=== PATIENT | male | born 1955 | race Caucasian/White ===

== ENCOUNTER → 2017-09-24 08:40 | Outpatient (CLI) | payer OTHER, SELFPAY ==
[2017-09-24 11:11] LABS: ALB/GLOB Ratio 0.8 RATIO (0.9-2.4); AST(SGOT) 20 U/L (15-37); Alanine Aminotransfer ALT/SGPT 27 U/L (16-61); Albumin, Serum 3.1 g/dL (3.2-5.0); Alkaline Phosphatase 89 U/L (45-117); Anion Gap 5 (5-15); BUN 12 mg/dL (7-18); BUN/Creat Ratio 10.5 RATIO (10-20); Calcium,Total 8.5 mg/dL (8.5-10.1); Chloride 108 mmol/L (98-107); Cholesterol 100 mg/dL (200); Creatinine, Serum 1.14 mg/dL (0.70-1.30); EST Glomerular Filtration Rate 69 mL/min (>60); Est Glom Filt Rate - Afr Amer 83 mL/min (>60); Globulin 3.9 g/dL (2.2-4.2); Glucose 116 mg/dL (74-106); High Density Lipoprotein 31 mg/dL; Potassium 4.5 mmol/L (3.5-5.1); Sodium Level 143 mmol/L (136-145); Triglycerides 134 mg/dL; Very Low Density Lipoprotein 27 mg/dL (5-40)
[2017-09-24 11:58] LABS: Hemoglobin A1c 7.9 % (4.2-6.3)
== END ==
PROVIDERS: Family Provider Family Medicine; PCP Family Medicine; Visit Provider Nurse Practitioner
DX: E11.9 Type 2 diabetes mellitus without complications (principal); E78.5 Hyperlipidemia, unspecified
CPT/HCPCS: 36415; 80053; 80061; 83036

== ENCOUNTER 2017-11-15 06:40 | Day surgery (SDC) | payer OTHER, SELFPAY ==
--- NOTE | 2017-11-15 | COLBX_PTH ---
PATIENT: ROBERT LIPSCOMB Jr. LOC: EN U#:[id number] AGE/SX: 62/M ROOM: RE11/15/[address]: Dr. Carl Fields MD : 1955 BED: DIS: 11/15/2017 SPEC #: [id number] RECD: 11/15/17 13:26 STATUS: ERIK LEON #: [id number] KORY: 11/15/17 00:[address]: Carl Fields DEPT: SURGICAL PATHOLOGY RECD BY: Jerson Noe ENTERED: 11/15/17 13:27 SP TYPE: COLON BX OTHR DR: Dr. Krunal Overton DO Tissues: A - Cecum, NOS B - Transverse colon C - Descending colon Procedures: Surgery Specimen Level IV HEADER OPERATION: Colonoscopy PRE-OP DIAGNOSIS: Family history colon CA TISSUE SUBMITTED: A ? Cecal biopsy polyp, B ? Proximal transverse polyp biopsy, C ? Descending polyp biopsy MICROSCOPIC DIAGNOSIS A. Cecal polyp, biopsy: Fragments of tubular adenoma. B. Proximal transverse colon polyp, biopsy: Tubular adenoma. C. Descending colon polyp, biopsy: Tubular adenoma. KRISTEN:davonte 11/19/17 MICROSCOPIC DESCRIPTION Slides are reviewed. GROSS DESCRIPTION A - Received in fixative is one container labeled with the patient's name and designated cecal polyp biopsy. The specimen consists of multiple irregular fragments of light virgen soft tissue that in aggregate measure 1 x 0.3 x 0.1 cm. The specimen is totally submitted in one cassette. B - Received in fixative is one container labeled with the patient's name and designated proximal transverse polyp biopsy. The specimen consists of one irregular fragment of light virgen soft tissue that measures 0.3 x 0.2 x 0.1 cm. The specimen is totally submitted in one cassette. C - Received in fixative is one container labeled with the patient's name and designated descending polyp biopsy. The specimen consists of multiple irregular fragments of light virgen soft tissue that in aggregate measure 0.5 x 0.3 x 0.1 cm. The specimen is totally submitted in one cassette. / KRISTEN:davonte 11/15/17 TC:1 CPT: 49751 x3
[2017-11-15 07:07] VITALS: BP 135/59; PULSE 82; RESP 16; TEMP 37; O2SAT 96; BMI 43.7
[2017-11-15 07:25] LABS: Bedside Glucose 172 mg/dL (70-110)
--- NOTE | 2017-11-15 07:59 | PCM.OPRPT ---
Problem List (1) Family history of colon cancer in father Status: Acute Report of Operation Date of Procedure: 11/15/17 Pre-Operative Diagnosis: Family history of colon cancer Post-Operative Diagnosis: Extensive descending and sigmoid diverticulosis. Sessile polyps of the cecum ascending colon and descending colon Surgery/Procedure Performed:: Colonoscopy with cold forcep polypectomy Description of Surgical Findings:: Timeout and informed consent was obtained. 62-year-old gentleman was taken to the endoscopy suite. He was placed in a left lateral decubitus position. Throughout the procedure in aliquots she received total of 100 mg of Demerol and 5 mg of Versed is intravenous sedation. Digital rectal exam performed. Normal anal tone. Minimal hemorrhoidal findings. 2+ smooth prostate. Flexible colonoscope inserted the rectum advanced quite readily through the colon. With some transabdominal pressure the scope was advanced to the cecum. Bowel prep was good. The cecum ileocecal valve was nicely achieved. There was a sessile 5 mm polyp of the cecum photograph was obtained. Cold forcep was used to sample and eradicate. The scope was withdrawn in in the ascending colon there is felt to be an additional sessile 5 mm polyp. Photographs obtained. Cold forceps were used to sample and eradicate. The scope was then further withdrawn through the transverse colon descending colon and sigmoid colon. There is extensive diverticulosis of the descending sigmoid colon. There is a small sessile polyp of the descending colon it too was sampled and eradicated with cold forceps. The scope was withdrawn to the rectum retroflex the anorectal verge inspected this was not remarkable excess fluid and air was aspirated free the procedure was completed with the patient tolerating it well. Impression Extensive descending and sigmoid diverticulosis. Sessile polyp of the cecum. Ascending colon. Descending colon. Clinical factors all appear to be benign. Previous colonoscopy was June 27, 2012. Next colonoscopy anticipated in 3-5 years pending pathology. The medications were given at 0734. Scope was inserted 0737. The cecum was reached at 0742. Procedure was completed at 0757. Cc: Dr. Chetna Fields M.D., F.A.C.S. Type of Anesthesia:: IV Sedation
[2017-11-15 08:04] VITALS: BP 135/59; BP 137/64; PULSE 93; RESP 16; TEMP 36.4; O2SAT 95
[2017-11-15 08:10] VITALS: BP 126/55; BP 135/59; PULSE 81; RESP 16; O2SAT 95
[2017-11-15 08:15] VITALS: BP 123/67; BP 135/59; PULSE 92; RESP 16; O2SAT 96
[2017-11-15 08:20] VITALS: BP 117/84; BP 135/59; PULSE 87; RESP 16; TEMP 37.2; O2SAT 95
[2017-11-15 08:55] VITALS: BP 135/59
== END 2017-11-15 08:56 | disposition home or self-care (01) ==
LOC: EN 06:41 → AC 06:42
PROVIDERS: Family Provider Family Medicine; PCP Family Medicine; Visit Provider Surgery
PROC: 0DJD8ZZ Inspection of Lower Intestinal Tract, Via Natural or Artificial Opening Endoscopic (ICD-10-PCS; CPT 45378; principal; 2017-11-15 07:40)
DX: D12.0 Benign neoplasm of cecum (principal); D12.4 Benign neoplasm of descending colon; D12.3 Benign neoplasm of transverse colon; K57.30 Diverticulosis of large intestine without perforation or abscess without bleeding; E08.319 Diabetes mellitus due to underlying condition with unspecified diabetic retinopathy without macular edema; I10 Essential (primary) hypertension; E66.01 Morbid (severe) obesity due to excess calories; I25.2 Old myocardial infarction; E78.5 Hyperlipidemia, unspecified; I25.10 Atherosclerotic heart disease of native coronary artery without angina pectoris; D64.9 Anemia, unspecified; M19.90 Unspecified osteoarthritis, unspecified site; Z80.0 Family history of malignant neoplasm of digestive organs; Z68.41 Body mass index [BMI] 40.0-44.9, adult; Z85.828 Personal history of other malignant neoplasm of skin; Z79.4 Long term (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 insulin; Z79.82 Long term (current) use of aspirin; Z79.899 Other long term (current) drug therapy
CPT/HCPCS: 45380; 82962; 88305; 99152; 99153; J7120

== ENCOUNTER → 2018-01-07 08:14 | Outpatient (CLI) | payer OTHER, SELFPAY ==
[2018-01-07 10:35] LABS: ALB/GLOB Ratio 0.9 RATIO (0.9-2.4); AST(SGOT) 29 U/L (15-37); Alanine Aminotransfer ALT/SGPT 33 U/L (16-61); Albumin, Serum 3.4 g/dL (3.2-5.0); Alkaline Phosphatase 84 U/L (45-117); Anion Gap 3 (5-15); BUN 16 mg/dL (7-18); BUN/Creat Ratio 12.7 RATIO (10-20); Calcium,Total 8.7 mg/dL (8.5-10.1); Chloride 108 mmol/L (98-107); Creatinine, Serum 1.26 mg/dL (0.70-1.30); EST Glomerular Filtration Rate 61 mL/min (>60); Est Glom Filt Rate - Afr Amer 74 mL/min (>60); Globulin 3.9 g/dL (2.2-4.2); Glucose 93 mg/dL (74-106); Potassium 4.5 mmol/L (3.5-5.1); Protein, Total 7.3 g/dL (6.4-8.2); Sodium Level 142 mmol/L (136-145)
[2018-01-07 11:22] LABS: Microalbumin,Random Urine 17.1 mg/L (NO RANGE EST.); Microalbumin:Creatinine Ratio 8.9 mg/g CRE (<30 mg/g CRE)
[2018-01-07 11:30] LABS: Hemoglobin A1c 8.7 % (4.2-6.3)
== END ==
PROVIDERS: Family Provider Family Medicine; PCP Family Medicine; Visit Provider Nurse Practitioner
DX: E66.9 Obesity, unspecified (principal); E08.319 Diabetes mellitus due to underlying condition with unspecified diabetic retinopathy without macular edema; E08.65 Diabetes mellitus due to underlying condition with hyperglycemia; E78.5 Hyperlipidemia, unspecified; Z95.5 Presence of coronary angioplasty implant and graft
CPT/HCPCS: 36415; 80053; 82043; 82570; 83036

== ENCOUNTER → 2018-04-15 10:45 | Outpatient (CLI) | payer OTHER, SELFPAY ==
[2018-04-15 12:22] LABS: ALB/GLOB Ratio 0.9 RATIO (0.9-2.4); AST(SGOT) 23 U/L (15-37); Alanine Aminotransfer ALT/SGPT 30 U/L (16-61); Albumin, Serum 3.2 g/dL (3.2-5.0); Alkaline Phosphatase 83 U/L (45-117); Anion Gap 6 (5-15); BUN 16 mg/dL (7-18); BUN/Creat Ratio 13.8 RATIO (10-20); Calcium,Total 8.6 mg/dL (8.5-10.1); Chloride 104 mmol/L (98-107); Creatinine, Serum 1.16 mg/dL (0.70-1.30); EST Glomerular Filtration Rate 67 mL/min (>60); Est Glom Filt Rate - Afr Amer 81 mL/min (>60); Globulin 3.6 g/dL (2.2-4.2); Glucose 161 mg/dL (74-106); Potassium 4.4 mmol/L (3.5-5.1); Protein, Total 6.8 g/dL (6.4-8.2); Sodium Level 141 mmol/L (136-145); Thyroid Stim Hormone (TSH) 3.45 uIU/mL (0.358-3.74)
[2018-04-15 12:25] LABS: Hemoglobin A1c 7.6 % (4.2-6.3)
== END ==
PROVIDERS: Family Provider Family Medicine; PCP Family Medicine; Referring Provider Nurse Practitioner; Visit Provider Nurse Practitioner
DX: Z79.4 Long term (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 insulin (principal); E08.319 Diabetes mellitus due to underlying condition with unspecified diabetic retinopathy without macular edema; E08.65 Diabetes mellitus due to underlying condition with hyperglycemia
CPT/HCPCS: 36415; 80053; 83036; 84443

== ENCOUNTER → 2018-09-03 09:28 | Outpatient (CLI) | payer OTHER, SELFPAY ==
[2018-06-10 08:26] VITALS: BMI 43.9
[2018-09-03 10:42] LABS: Hemoglobin A1c 7.7 % (4.2-6.3)
[2018-09-03 10:56] LABS: ALB/GLOB Ratio 0.9 RATIO (0.9-2.4); AST(SGOT) 23 U/L (15-37); Alanine Aminotransfer ALT/SGPT 28 U/L (16-61); Albumin, Serum 3.4 g/dL (3.2-5.0); Alkaline Phosphatase 89 U/L (45-117); Anion Gap 6 (5-15); BUN 16 mg/dL (7-18); BUN/Creat Ratio 14.5 RATIO (10-20); Calcium,Total 8.4 mg/dL (8.5-10.1); Chloride 108 mmol/L (98-107); Cholesterol 112 mg/dL (200); EST Glomerular Filtration Rate 71 mL/min (>60); Est Glom Filt Rate - Afr Amer 86 mL/min (>60); Globulin 3.6 g/dL (2.2-4.2); Glucose 78 mg/dL (74-106); High Density Lipoprotein 34 mg/dL; Potassium 4.2 mmol/L (3.5-5.1); Sodium Level 142 mmol/L (136-145); Triglycerides 135 mg/dL; Very Low Density Lipoprotein 27 mg/dL (5-40)
== END ==
PROVIDERS: Family Provider Family Medicine; PCP Family Medicine; Referring Provider Nurse Practitioner; Visit Provider Nurse Practitioner
DX: E78.00 Pure hypercholesterolemia, unspecified (principal); E08.319 Diabetes mellitus due to underlying condition with unspecified diabetic retinopathy without macular edema
CPT/HCPCS: 36415; 80053; 80061; 83036

== ENCOUNTER → 2019-08-28 | Outpatient (CLI) | payer MEDICARE, OTHER, SELFPAY ==
[2019-01-06 09:27] VITALS: BMI 44.6
[2019-04-30 13:45] VITALS: BMI 44.6
[2019-08-28 11:04] LABS: Absolute Lymphocyte Count 1.49 X10^3/uL (0.83-4.51); Absolute Neutrophil Count 5.3 X10^3/uL (2.0-7.7); Basophil# 0.04 X10^3/uL; Basophil% 0.5 % (0-1); Eosinophil# 0.25 X10^3/uL; Eosinophils% 3.2 % (0-5); Hematocrit 42.6 % (40-54); Hemoglobin 13.4 g/dL (13.0-16.5); Lymphocyte # 1.49 X10^3/ul (4.0); Lymphocyte % 19.2 % (19-41); Mean Corp Hgb Conc 31.5 g/dL (32-36); Mean Corpuscular Hgb 27.5 pg (27.0-32.0); Mean Corpuscular Volume 87.5 fL (80-94); Mean Platelet Vol. 10.1 fl (6.2-12.0); Monocyte# 0.66 X10^3/uL; Monocyte% 8.5 % (0-10); NRBC Flagged by Analyzer 0 % (0-5); Neutrophil # 5.29 X10^3/uL (2.7-7.7); Neutrophil % 68.3 % (47-70); Platelet Count 255 K/mm3 (150-450); RBC Distribution Width CV 13.8 % (11.6-14.6); RBC Distribution Width SD 43.8 fl (35.1-43.9); Red Blood Count 4.87 M/mm3 (4.6-6.2); White Blood Count 7.8 K/mm3 (4.4-11.0)
[2019-08-28 11:21] LABS: ALB/GLOB Ratio 0.9 RATIO (0.9-2.4); AST(SGOT) 31 U/L (15-37); Alanine Aminotransfer ALT/SGPT 34 U/L (16-61); Albumin, Serum 3.3 g/dL (3.2-5.0); Alkaline Phosphatase 87 U/L (45-117); Anion Gap 4 (5-15); BUN 16 mg/dL (7-18); BUN/Creat Ratio 12.9 RATIO (10-20); Chloride 109 mmol/L (98-107); Cholesterol 112 mg/dL (200); Creatinine, Serum 1.24 mg/dL (0.70-1.30); EST Glomerular Filtration Rate 62 mL/min (>60); Est Glom Filt Rate - Afr Amer 75 mL/min (>60); Globulin 3.6 g/dL (2.2-4.2); Glucose 121 mg/dL (74-106); High Density Lipoprotein 35 mg/dL; PSA,Total - Annual Screen 0.62 ng/mL (0.00-4.00); Potassium 4.6 mmol/L (3.5-5.1); Protein, Total 6.9 g/dL (6.4-8.2); Sodium Level 142 mmol/L (136-145); Triglycerides 144 mg/dL; Very Low Density Lipoprotein 29 mg/dL (5-40)
[2019-08-28 11:31] LABS: Hemoglobin A1c 7.9 % (4.2-6.3)
[2019-08-28 11:38] LABS: Microalbumin:Creatinine Ratio 10.1 mg/g CRE (<30 mg/g CRE)
== END | disposition home or self-care (01) ==
LOC: BFHLAB 08:24
PROVIDERS: Family Provider Family Medicine; PCP Family Medicine; Visit Provider Family Medicine
DX: E11.9 Type 2 diabetes mellitus without complications (principal); I25.10 Atherosclerotic heart disease of native coronary artery without angina pectoris; E78.5 Hyperlipidemia, unspecified; Z12.5 Encounter for screening for malignant neoplasm of prostate; Z51.81 Encounter for therapeutic drug level monitoring
CPT/HCPCS: 36415; 80053; 80061; 82043; 82570; 83036; 84153; 85025; G0103

== ENCOUNTER → 2020-07-20 08:59 | Outpatient (CLI) | payer MEDICARE, OTHER, SELFPAY ==
[2020-01-14 08:46] VITALS: BMI 44.3
[2020-07-20 11:37] LABS: Absolute Lymphocyte Count 1.57 X10^3/uL (0.83-4.51); Absolute Neutrophil Count 7.6 X10^3/uL (2.0-7.7); Basophil# 0.04 X10^3/uL; Basophil% 0.4 % (0-1); Eosinophil# 0.26 X10^3/uL; Eosinophils% 2.6 % (0-5); Hematocrit 43.7 % (40-54); Hemoglobin 13.6 g/dL (13.0-16.5); Lymphocyte # 1.57 X10^3/ul (4.0); Lymphocyte % 15.5 % (19-41); Mean Corp Hgb Conc 31.1 g/dL (32-36); Mean Corpuscular Hgb 27.6 pg (27.0-32.0); Mean Corpuscular Volume 88.6 fL (80-94); Mean Platelet Vol. 10.1 fl (6.2-12.0); Monocyte# 0.68 X10^3/uL; Monocyte% 6.7 % (0-10); NRBC Flagged by Analyzer 0 % (0-5); Neutrophil # 7.57 X10^3/uL (2.7-7.7); Neutrophil % 74.6 % (47-70); Platelet Count 269 K/mm3 (150-450); RBC Distribution Width CV 13.7 % (11.6-14.6); RBC Distribution Width SD 44.7 fl (35.1-43.9); Red Blood Count 4.93 M/mm3 (4.6-6.2); White Blood Count 10.1 K/mm3 (4.4-11.0)
[2020-07-20 12:18] LABS: Microalbumin,Random Urine 6.5 mg/L (NO RANGE EST.); Microalbumin:Creatinine Ratio 4.6 mg/g CRE (<30 mg/g CRE)
[2020-07-20 12:54] LABS: AST(SGOT) 27 U/L (15-37); Alanine Aminotransfer ALT/SGPT 30 U/L (16-61); Albumin, Serum 3.4 g/dL (3.2-5.0); Alkaline Phosphatase 91 U/L (45-117); Anion Gap 5 (5-15); BUN 19 mg/dL (7-18); BUN/Creat Ratio 16.5 RATIO (10-20); Calcium,Total 8.8 mg/dL (8.5-10.1); Chloride 106 mmol/L (98-107); Cholesterol 116 mg/dL (200); Creatinine, Serum 1.15 mg/dL (0.70-1.30); EST Glomerular Filtration Rate 68 mL/min (>60); Est Glom Filt Rate - Afr Amer 82 mL/min (>60); Globulin 3.5 g/dL (2.2-4.2); Glucose 76 mg/dL (74-106); High Density Lipoprotein 36 mg/dL; Potassium 4.2 mmol/L (3.5-5.1); Protein, Total 6.9 g/dL (6.4-8.2); Sodium Level 140 mmol/L (136-145); Thyroid Stim Hormone (TSH) 2.51 uIU/mL (0.358-3.74); Triglycerides 141 mg/dL; Very Low Density Lipoprotein 28 mg/dL (5-40)
[2020-07-21 14:41] LABS: Hemoglobin A1c 7.7 % (3.8-5.6)
== END ==
PROVIDERS: PCP Family Medicine; Visit Provider Family Medicine
DX: E11.9 Type 2 diabetes mellitus without complications (principal); I25.10 Atherosclerotic heart disease of native coronary artery without angina pectoris; E78.5 Hyperlipidemia, unspecified; Z51.81 Encounter for therapeutic drug level monitoring
CPT/HCPCS: 36415; 80053; 80061; 82043; 82570; 83036; 84443; 85025

== ENCOUNTER 2020-11-25 06:24 | Day surgery (SDC) | payer MEDICARE, OTHER, SELFPAY ==
[2020-10-17 15:20] VITALS: BMI 43.0
--- NOTE | 2020-11-17 12:38 | NURSING ---
Unable to complete PAT with pt. Pt refused to answer medical history questions but did verify current medical problem list however denies most problems on list such as high blood pressure and high cholesterol. Pt also refused to verify home medications stating You have my list I gave it to the doctor. Pt frequently interrupting this RN when provided with recommended instructions such as medications to take day of procedure. Pt informed that failure to follow instructions may lead to a cancellation on day of procedure.
[2020-11-25] VITALS (7 sets, daily range): BP systolic 77–129; BP diastolic 41–56; PULSE 76–83; RESP 16–20; TEMP 36.2–36.6; O2SAT 78–98; BMI 42.8
--- NOTE | 2020-11-25 06:48 | PCM.HP.BLA ---
History and Physical Date of Admission: 11/25/20 Intake Visit Reasons: C-Scope Chief Complaint: c-scope Director Nurses' Registry Required: No Is patient in pain?: No Allergies amoxicillin [From Augmentin] Allergy (Severe, Verified 10/17/20 15:21) Unknown clavulanic acid [From Augmentin] Allergy (Severe, Verified 10/17/20 15:21) Unknown atorvastatin [From Lipitor] Allergy (Verified 10/17/20 15:21) Pain in joints metformin [From Glucophage] Allergy (Verified 10/17/20 15:21) Rash Medications guojqezr-mbk-yayiv acid 0.4 mg-lycopene 300 mcg-lutein 250 mcg tablet 1 tab PO QAM 06/06/17 [History Confirmed 10/17/20] nitroglycerin 0.4 mg sublingual tablet 0.4 mg SUBLINGUAL Q5M PRN 06/06/17 [History Confirmed 10/17/20] aspirin 81 mg tablet,delayed release 324 mg PO QDAY tab 10/16/17 [History Confirmed 10/17/20] pen needle, diabetic 32 gauge x 1/4 See Dose Instructions .ROUTE .MEDSUPPLY #270 ea 12/27/17 [Rx Confirmed 10/17/20] repaglinide 2 mg tablet 4 mg PO .COMPLEX #720 tab 03/17/18 [Rx Confirmed 10/17/20] liraglutide 0.6 mg/0.1 mL (18 mg/3 mL) subcutaneous pen injector 1.8 mg SC DAILY #27 ml 06/10/18 [Rx Confirmed 10/17/20] blood sugar diagnostic See Dose Instructions .ROUTE .MEDSUPPLY #180 ea 08/10/18 [Rx Confirmed 10/17/20] blood-glucose meter See Dose Instructions .ROUTE .MEDSUPPLY #1 ea 08/10/18 [Rx Confirmed 10/17/20] lancets See Dose Instructions .ROUTE .MEDSUPPLY #60 ea 08/10/18 [Rx Confirmed 10/17/20] enalapril maleate 20 mg tablet 20 mg PO QDAY #90 tab 09/11/18 [Rx Confirmed 10/17/20] insulin glargine 100 unit/mL (3 mL) subcutaneous pen See Rx Instructions SC BID #120 ml 09/11/18 [Rx Confirmed 10/17/20] atenolol 50 mg tablet 50 mg PO QDAY #90 tab 07/07/20 [Rx Confirmed 10/17/20] rosuvastatin 20 mg tablet 20 mg PO QDAY #90 tab 12/29/19 [Rx Confirmed 10/17/20] PFSH Medical History Atherosclerosis of coronary artery of [place] heart without angina pectoris (Chronic) 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) Essential (primary) hypertension (Chronic) Hyperlipidemia (Chronic) History of testicular cancer (Chronic) Anemia (Chronic) Arthritis (Chronic) Cataracts, bilateral (Chronic) Chronic headaches (Chronic) Family history of colon cancer in father (Chronic) Obesity due to excess calories (Chronic) Seasonal allergies (Chronic) Skin cancer (Chronic) 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 diabetic retinopathy (Chronic) Pneumonia (Resolved) H/O transfusion of whole blood (Inactive) Surgical History History of coronary artery stent placement (Resolved 2004) H/O colonoscopy (Chronic) H/O inguinal hernia repair (Chronic) History of appendectomy (Chronic) History of orchiectomy (Resolved) History of tonsillectomy and adenoidectomy (Resolved) Family History Mother Cancer pancreatic Father Cancer colon Sister Diabetes CAD (coronary artery disease) Aunt Colon cancer Breast cancer Social History (Updated 10/17/20 @ 15:[address] Carl Fields MD) Smoking Status: Never smoker second hand exposure: No alcohol intake: current substance use type: does not use HPI HPI HPI: ROBERT LIPSCOMB, is a 65 M who presents to the office today for surgical discussion regarding a surveillance colonoscopy. Patient's primary care physician Dr. Krunal Overton. The patient had a myocardial infarction 2004 and is a coronary stent placed. He is only on aspirin however as an anticoagulant. He denies history of DVT. Body weight is 300 pounds with a BMI of 43. He denies bright red blood per rectum or melena. He has a family history of colon cancer in his father. A sister has had colon polyps. A couple aunts have had colon cancer. His most recent colonoscopy was November 15, 2017. I assisted him with that. There was a cecal polyp a proximal transverse colon polyp and a descending colon polyp. All of these were tubular adenomas. It is of additional note that the patient had extensive descending and sigmoid diverticulosis. HPI HPI HPI: ROBERT LIPSCOMB, is a 65 M who presents to the office today for ROS General General: No weight change, appetite, fatigue, colon cancer, breast cancer or weakness HEENT HEENT: No difficulty swallowing, eye injury, eye surgery, swollen glands or hoarseness Endo Endocrine: Yes diabetes mellitus; no thyroid disease, thyroid cancer, Hair loss, heat intolerance or cold intolerance Skin Skin: No rash or changing moles Breast Breast: No left breast lump, right breast lump, nipple discharge, breast pain, abnormal mammogram, abnormal US or breast enlargement Musc Musculoskeletal: Yes back problems and arthritis; no rheumatoid arthritis, gout or joint pain Cardio Cardiovascular: Yes heart disease, heart attack and heart stent; no murmur, pacemaker, atrial fibrillation, high blood pressure, palpitations, shortness of breat with exertion or chest pain Psych Psychiatric: No depression, anxiety or hearing voices Resp Respiratory: No shortness of breath, No sleep apnea, No cough, No COPD, No asthma, No emphysema, No wheezing Gastro Gastrointestinal: No abdominal pain, No nausea or vomiting, No diarrhea, No constipation, No blood in stool, No acid reflux, No hemorrhoids, No ulcers, No gallbladder problem, No black,tarry stools Antwan Hematologic: No blood thinners, No blood disorders, No bleeding, No anemia, No blood clots Neuro Neurologic: No system reviewed and no additional complaints, except as docu, No as per HPI, No abnormal walking, No abnormal hearing, No abnormal movements, No abnormal speech, No behavioral changes, No burning sensations, No confusion, No seizure-like activity, No unsteadiness, No dizziness, No localized weakness, No frequent falls, No headache(s), No lack of coordination, No loss of vision, No memory loss, No numbness, No other visual disturbances, No radiating pain, No restless legs, No sensory deficit, No fainting, No tingling, No tremor(s), No weakness, No other Exam Const General: cooperative, comfortable, no acute distress Nutritional Appearance: overweight HENMT Head: normal to inspection Chest Breast Palpation: No nipple discharge Resp Other: Slightly decreased breath sounds right chest. No wheeze. Cardio Rate: regular rate Rhythm: regular rhythm Heart Sounds: no murmurs GI Palpation: soft Other: Secondary to body habitus am not able to palpate any internal organs Musc Cervical Spine: normal cervical lordosis Neuro Cognition: normal cognition Extrem Other: Bilateral lower extremity 1+ pitting edema. Psych Affect: normal affect Assessment & Plan Problems 1. Personal history of colonic polyps Z86.010 2. Family history of malignant neoplasm of colon in father Z80.0 Plan I recommend to the patient a colonoscopy with possible biopsy or polypectomy as indicated. He has a personal history of colon polyps and a family history of colon cancer in his father. Patient's body habitus would not lend well to colon surgery. He has had an opportunity to ask and have questions answered. We will schedule procedure at his discretion. I anticipate a 2-day bowel prep. I anticipate monitored anesthesia care. Copy: Dr. Krunal Fields M.D., F.A.C.S. Coding Level of Care Code Off vis,est,level 2 Diagnoses Personal history of colonic polyps Z86.010 Family history of malignant neoplasm of colon in father Z80.0 I have re-examined the patient. There are no clinical changes since date of exam. Carl Fields M.D., F.A.C.S.
[2020-11-25] MEDS: Lactated Ringers 1,000 ML 100 ML IV (07:20)
[2020-11-25 07:25] LABS: Bedside Glucose 176 mg/dL (70-110)
--- NOTE | 2020-11-25 15:09 | OP.COLON_ITS ---
Patient Name: Ruiz Crawford Procedure Date: 11/25/2020 7:26 AM Date of : 1955 Age: 65 Procedure: Colonoscopy Indications: High risk colon cancer surveillance: Personal history of colonic polyps Providers: Carl Fields MD Medicines: See the Anesthesia note for documentation of the administered medications Patient Profile: Last Colonoscopy: October 2017. Complications: No immediate complications. Procedure: Pre-Anesthesia Assessment: - Prior to the procedure, a History and Physical was performed, and patient medications and allergies were reviewed. The patient's tolerance of previous anesthesia was also reviewed. The risks and benefits of the procedure and the sedation options and risks were discussed with the patient. All questions were answered, and informed consent was obtained. Prior Anticoagulants: The patient has taken no previous anticoagulant or antiplatelet agents. ASA Grade Assessment: II - A patient with mild systemic disease. After reviewing the risks and benefits, the patient was deemed in satisfactory condition to undergo the procedure. After I obtained informed consent, the scope was passed under direct vision. Throughout the procedure, the patient's blood pressure, pulse, and oxygen saturations were monitored continuously. The colonoscope was introduced through the anus and advanced to the cecum, identified by appendiceal orifice and ileocecal valve. The colonoscopy was performed without difficulty. The patient tolerated the procedure well. The quality of the bowel preparation was adequate to identify polyps. The ileocecal valve was photographed. Scope In: 7:38:35 AM Scope Withdrawal Time 0 hours 10 minutes 12 seconds Scope Out: 7:53:28 AM Total Procedure Duration Time 0 hours 14 minutes 53 seconds Findings: Hemorrhoids were found on perianal exam. Multiple diverticula were found in the sigmoid colon and descending colon. The exam was otherwise without abnormality. Impression: - Hemorrhoids found on perianal exam. - Diverticulosis in the sigmoid colon and in the descending colon. - The examination was otherwise normal. - No specimens collected. Recommendation: - Discharge patient to home. - Resume previous diet. - Continue present medications. - Repeat colonoscopy in 5 years for surveillance. Procedure Code(s): --- Professional --- 14519, Colonoscopy, flexible; diagnostic, including collection of specimen(s) by brushing or washing, when performed (separate procedure) Diagnosis Code(s): --- Professional --- Z86.010, Personal history of colonic polyps K64.9, Unspecified hemorrhoids K57.30, Diverticulosis of large intestine without perforation or abscess without bleeding CPT copyright 2017 [employer]. All rights reserved. The codes documented in this report are preliminary and upon rescue instructor review may be revised to meet current compliance requirements. Carl Fields MD 11/25/2020 7:57:26 AM This report has been signed electronically. Number of Addenda: 0 Note Initiated On: 11/25/2020 7:26 AM
--- NOTE | 2020-11-25 15:09 | OP.CCLET_ITS ---
11/25/2020 Krunal Overton [address] [place] [address] Re : Colonoscopy procedure for Ruiz Crawford Dear Dr. Overton This procedure was performed on Wednesday, November 25, 2020. My impressions and recommendations are as follows: Impressions : - Hemorrhoids found on perianal exam. - Diverticulosis in the sigmoid colon and in the descending colon. - The examination was otherwise normal. - No specimens collected. Recommendations : - Discharge patient to home. - Resume previous diet. - Continue present medications. - Repeat colonoscopy in 5 years for surveillance. My findings are described in the full procedure note, which is enclosed. If I can be of further assistance, please feel free to contact me at Doctor phone number(s): Work: . Sincerely, Carl Fields MD 11/25/2020 7:57:26 AM This report has been signed electronically.
== END 2020-11-25 08:43 ==
LOC: EN 06:28 → AC 06:29
PROVIDERS: PCP Family Medicine; Referring Provider Family Medicine; Visit Provider Surgery
PROC: 0DJD8ZZ Inspection of Lower Intestinal Tract, Via Natural or Artificial Opening Endoscopic (ICD-10-PCS; CPT 45378; principal; 2020-11-25 07:25)
DX: K57.30 Diverticulosis of large intestine without perforation or abscess without bleeding (principal); K64.9 Unspecified hemorrhoids; Z86.010 Personal history of colon polyps; Z80.0 Family history of malignant neoplasm of digestive organs; I25.10 Atherosclerotic heart disease of native coronary artery without angina pectoris; I10 Essential (primary) hypertension; M19.90 Unspecified osteoarthritis, unspecified site; E11.319 Type 2 diabetes mellitus with unspecified diabetic retinopathy without macular edema; E66.9 Obesity, unspecified; Z68.41 Body mass index [BMI] 40.0-44.9, adult; Z79.4 Long term (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 insulin; Z79.899 Other long term (current) drug therapy
CPT/HCPCS: G0105; 82962; J7120; J2405

== ENCOUNTER → 2021-06-08 06:51 | Outpatient (CLI) | payer MEDICARE, OTHER, SELFPAY ==
--- NOTE | 2021-06-08 06:56 | CT_ITS ---
STUDY: CT MAXILLOFACIAL SINUSES REASON FOR EXAM: Male, 65 years old. SINUSITIS. Left-sided congestion and left sided hearing loss. RADIATION DOSAGE (If Supplied By Facility): CTDIvol = ( 33.06 ) mGy, DLP = ( 726.41 ) mGycm TECHNIQUE: The patient was scanned in a multi detector CT scanner. High resolution axial imaging was performed without the administration of intravenous contrast material. Sagittal and coronal images were reconstructed. Individualized dose optimization techniques were used for this CT. COMPARISON: None. FINDINGS: FRONTAL SINUSES: Normal aeration, without mucosal inflammatory disease. ETHMOIDAL SINUSES: Normal aeration, without mucosal inflammatory disease. MAXILLARY SINUSES: Normal aeration, without mucosal inflammatory disease. SPHENOIDAL SINUSES: Normal aeration, without mucosal inflammatory disease. There is opacification of the left mastoid air cells. There is patency of the bilateral maxillary infundibuli with normal uncinate processes, ethmoid bullae, and hiatus semilunaris. Normal bilateral middle turbinates. Normal bilateral inferior turbinates. Normal midline nasal septum. There is patency of the bilateral nasal airways. The visualized osseous structures are normal. The visualized bilateral orbital contents are normal. CT/Sinus/Facial Bone IMPRESSION: There is opacification of the left mastoid air cells. Electronically Signed: Chandler Dasilva MD at 8:38 EST , Service support ,
== END ==
PROVIDERS: PCP Family Medicine; Referring Provider Otolaryngology; Visit Provider Otolaryngology
DX: J32.8 Other chronic sinusitis (principal)
CPT/HCPCS: 70486

== ENCOUNTER 2021-06-28 07:27 | Outpatient (CLI) | payer MEDICARE, OTHER, SELFPAY ==
[2021-06-28 10:15] LABS: Absolute Lymphocyte Count 1.76 X10^3/uL (0.83-4.51); Absolute Neutrophil Count 4.5 X10^3/uL (2.0-7.7); Basophil# 0.05 X10^3/uL; Basophil% 0.7 % (0-1); Eosinophil# 0.32 X10^3/uL; Eosinophils% 4.4 % (0-5); Hematocrit 42.5 % (40-54); Hemoglobin 13.4 g/dL (13.0-16.5); Lymphocyte # 1.76 X10^3/ul (0.83-4.51); Lymphocyte % 24.1 % (19-41); Mean Corp Hgb Conc 31.5 g/dL (32-36); Mean Corpuscular Hgb 28.4 pg (27.0-32.0); Mean Platelet Vol. 10.1 fl (6.2-12.0); Monocyte# 0.64 X10^3/uL; Monocyte% 8.8 % (0-10); NRBC Flagged by Analyzer 0 % (0-5); Neutrophil % 61.7 % (47-70); Platelet Count 258 K/mm3 (150-450); RBC Distribution Width CV 13.5 % (11.6-14.6); RBC Distribution Width SD 44.8 fl (35.1-43.9); Red Blood Count 4.72 M/mm3 (4.6-6.2); White Blood Count 7.3 K/mm3 (4.4-11.0)
[2021-06-28 10:32] LABS: Microalbumin:Creatinine Ratio 8.6 mg/g CRE (<30 mg/g CRE)
[2021-06-28 10:36] LABS: Hemoglobin A1c 7.4 % (3.8-5.6)
[2021-06-28 10:38] LABS: ALB/GLOB Ratio 0.8 RATIO (0.9-2.4); AST(SGOT) 21 U/L (15-37); Alanine Aminotransfer ALT/SGPT 26 U/L (16-61); Albumin, Serum 3.2 g/dL (3.2-5.0); Alkaline Phosphatase 85 U/L (45-117); Anion Gap 4 (5-15); BUN 14 mg/dL (7-18); BUN/Creat Ratio 12.6 RATIO (10-20); Calcium,Total 8.7 mg/dL (8.5-10.1); Chloride 108 mmol/L (98-107); Cholesterol 98 mg/dL (200); Creatinine, Serum 1.11 mg/dL (0.70-1.30); EST Glomerular Filtration Rate 70 mL/min (>60); Est Glom Filt Rate - Afr Amer 85 mL/min (>60); Globulin 3.8 g/dL (2.2-4.2); Glucose 73 mg/dL (74-106); High Density Lipoprotein 32 mg/dL; PSA,Total - Annual Screen 0.56 ng/mL (0.00-4.00); Potassium 4.3 mmol/L (3.5-5.1); Sodium Level 143 mmol/L (136-145); Triglycerides 110 mg/dL; Very Low Density Lipoprotein 22 mg/dL (5-40)
== END 2021-06-28 23:59 | disposition home or self-care (01) ==
LOC: MTLAB 07:31
PROVIDERS: PCP Family Medicine; Referring Provider Family Medicine; Visit Provider Family Medicine
DX: E11.3299 Type 2 diabetes mellitus with mild nonproliferative diabetic retinopathy without macular edema, unspecified eye (principal); I25.10 Atherosclerotic heart disease of native coronary artery without angina pectoris; Z12.5 Encounter for screening for malignant neoplasm of prostate; Z79.899 Other long term (current) drug therapy
CPT/HCPCS: 36415; 80053; 80061; 82043; 82570; 83036; 84153; 85025; G0103

== ENCOUNTER → 2022-06-26 | Outpatient (CLI) | payer MEDICARE, OTHER, SELFPAY ==
[2022-06-26 12:22] LABS: Absolute Lymphocyte Count 1.89 X10^3/uL (0.83-4.51); Absolute Neutrophil Count 6.8 X10^3/uL (2.0-7.7); Basophil# 0.04 X10^3/uL; Basophil% 0.4 % (0-1); Eosinophil# 0.26 X10^3/uL; Eosinophils% 2.7 % (0-5); Hematocrit 46.2 % (40-54); Hemoglobin 14.5 g/dL (13.0-16.5); Lymphocyte # 1.89 X10^3/ul (0.83-4.51); Lymphocyte % 19.6 % (19-41); Mean Corp Hgb Conc 31.4 g/dL (32-36); Mean Corpuscular Hgb 28.2 pg (27.0-32.0); Mean Corpuscular Volume 89.7 fL (80-94); Mean Platelet Vol. 10.7 fl (6.2-12.0); Monocyte# 0.61 X10^3/uL; Monocyte% 6.3 % (0-10); NRBC Flagged by Analyzer 0 % (0-5); Neutrophil # 6.83 X10^3/uL (2.7-7.7); Neutrophil % 70.8 % (47-70); Platelet Count 221 K/mm3 (150-450); RBC Distribution Width CV 13.1 % (11.6-14.6); RBC Distribution Width SD 42.7 fl (35.1-43.9); Red Blood Count 5.15 M/mm3 (4.6-6.2); White Blood Count 9.7 K/mm3 (4.4-11.0)
[2022-06-26 13:03] LABS: Microalbumin,Random Urine 27.6 mg/L (NO RANGE EST.); Microalbumin:Creatinine Ratio 11.5 mg/g CRE (<30 mg/g CRE)
[2022-06-26 13:09] LABS: ALB/GLOB Ratio 0.9 RATIO (0.9-2.4); AST(SGOT) 23 U/L (15-37); Alanine Aminotransfer ALT/SGPT 31 U/L (16-61); Albumin, Serum 3.4 g/dL (3.2-5.0); Alkaline Phosphatase 77 U/L (45-117); Anion Gap 7 (5-15); BUN 15 mg/dL (7-18); BUN/Creat Ratio 11.5 RATIO (10-20); Calcium,Total 8.9 mg/dL (8.5-10.1); Chloride 103 mmol/L (98-107); Cholesterol 115 mg/dL (200); EST Glomerular Filtration Rate 58 mL/min (>60); Est Glom Filt Rate - Afr Amer 70 mL/min (>60); Globulin 3.8 g/dL (2.2-4.2); Glucose 112 mg/dL (74-106); High Density Lipoprotein 34 mg/dL; PSA,Total - Annual Screen 0.53 ng/mL (0.00-4.00); Potassium 4.6 mmol/L (3.5-5.1); Protein, Total 7.2 g/dL (6.4-8.2); Sodium Level 139 mmol/L (136-145); Triglycerides 212 mg/dL; Very Low Density Lipoprotein 42 mg/dL (5-40)
[2022-06-26 13:28] LABS: Hemoglobin A1c 7.9 % (3.8-5.6)
== END | disposition home or self-care (01) ==
LOC: BFHLAB 08:59
PROVIDERS: PCP Family Medicine; Visit Provider Family Medicine
DX: E11.9 Type 2 diabetes mellitus without complications (principal); I25.10 Atherosclerotic heart disease of native coronary artery without angina pectoris; E78.5 Hyperlipidemia, unspecified; Z12.5 Encounter for screening for malignant neoplasm of prostate
CPT/HCPCS: 36415; 80053; 80061; 82043; 82570; 83036; 84153; 85025; G0103

== ENCOUNTER → 2023-01-25 | Outpatient (CLI) | payer MEDICARE, OTHER, SELFPAY ==
--- NOTE | 2023-01-25 15:56 | STRESSREP ---
Stress Test Report Exercise myocardial perfusion stress test. 67-year-old man with a history of chest pain Stress protocol: Resting EKG demonstrates sinus rhythm with a rate of 67 bpm resting blood pressure is 138/70 mmHg. right bundle branch block is noted. The patient exercised according to the regular Boo protocol for a total duration of 6 minutes attaining a maximum heart rate of 129 bpm which was 85% of maximum predicted heart rate; the maximum workload was 7 metabolic equivalents. At rest there were no ST or T wave changes noted to suggest ischemia and at peak exercise upsloping ST changes only were noted which did not meet the criteria for ischemia. No clinical angina was noted the test was terminated due to the target heart rate being achieved/fatigue. The peak blood pressure was 184/72 mmHg. Rate-pressure product was 23,700. Myocardial perfusion protocol. 15 mCi of technetium 99m sestamibi was injected at rest. The patient exercised according to regular Boo protocol for total duration of 6 minutes and at peak exercise 44.8 mCi of technetium 99m sestamibi was injected stress images were obtained stress and rest images were reconstructed in comparing the short axis vertical long and horizontal long axis. Gated images were also obtained. Perfusion SPECT analysis: Review of the stress images demonstrate normal uptake of tracer noted in all areas of the myocardium except for small portion of the inferolateral wall with reduced perfusion. The resting images demonstrate normal uptake of tracer noted in all areas of the myocardium. The above is suggestive of mild ischemia noted in the inferolateral wall. Gated SPECT analysis: The gated ejection fraction is 58%. Conclusion: Mildly abnormal exercise myocardial perfusion stress test at a moderate workload Mild inferolateral ischemia Preserved ejection fraction.
== END | disposition home or self-care (01) ==
LOC: CVS 07:04
PROVIDERS: PCP Family Medicine; Referring Provider Nurse Practitioner Family; Visit Provider Nurse Practitioner Family
DX: R07.9 Chest pain, unspecified (principal)
CPT/HCPCS: 78452; 93017; A9500; A4216

== ENCOUNTER → 2023-02-12 | Day surgery (SDC) | payer MEDICARE, OTHER, SELFPAY ==
--- NOTE | 2023-02-08 09:36 | RAD_ITS ---
1 INDICATION: pre-operative -- -- hx testicular ca and diaphragm injury during surgery EXAMINATION/TECHNIQUE: X-RAY - XR Chest 2 Views COMPARISON: February 01, 2021 chest x-ray. FINDINGS: LINES/DEVICES: None. LUNGS: Significant asymmetric elevation right hemidiaphragm unchanged compared to prior exam. There is no significant overlying atelectasis. Lungs are otherwise clear. MEDIASTINUM AND CARDIOVASCULAR STRUCTURES: Normal size and contour of the cardiomediastinal silhouette. No evidence of pulmonary vascular congestion. BONES AND SOFT TISSUES: No fracture or focal osseous lesion. Extensive surgical clips anterior to the proximal lumbar spine. RAD/Chest PA and Lateral IMPRESSION: 1. Significant asymmetric elevation right hemidiaphragm unchanged. 2. No acute cardiopulmonary disease. 3. Numerous surgical clips anterior to the proximal lumbar spine. Electronically Signed: Marlon Mendiola DO at 23:20 EDT ,
[2023-02-08 10:26] LABS: Absolute Neutrophil Count 5.7 X10^3/uL (2.0-7.7); Basophil# 0.04 X10^3/uL; Basophil% 0.5 % (0-1); Eosinophil# 0.38 X10^3/uL; Eosinophils% 4.6 % (0-5); Hematocrit 43.5 % (40-54); Hemoglobin 13.1 g/dL (13.0-16.5); Lymphocyte % 17.1 % (19-41); Mean Corp Hgb Conc 30.1 g/dL (32-36); Mean Corpuscular Hgb 27.8 pg (27.0-32.0); Mean Corpuscular Volume 92.2 fL (80-94); Mean Platelet Vol. 10.6 fl (6.2-12.0); Monocyte# 0.67 X10^3/uL; Monocyte% 8.2 % (0-10); NRBC Flagged by Analyzer 0 % (0-5); Neutrophil # 5.67 X10^3/uL (2.7-7.7); Neutrophil % 69.2 % (47-70); Platelet Count 231 K/mm3 (150-450); RBC Distribution Width CV 13.6 % (11.6-14.6); RBC Distribution Width SD 45.9 fl (35.1-43.9); Red Blood Count 4.72 M/mm3 (4.6-6.2); White Blood Count 8.2 K/mm3 (4.4-11.0)
[2023-02-08 10:30] LABS: International Normalized Ratio 1.1; Prothrombin Time (Protime)PT. 14.2 SECONDS (11.7-14.9)
[2023-02-08 10:31] LABS: Partial Thromboplast Time 26.7 Seconds (24.1-36.2)
--- NOTE | 2023-02-08 10:43 | PCM.HP.BLA ---
History and Physical Date of Admission: 02/12/23 ROBERT LIPSCOMB, is a 67 M who presents to the [facility] today for a heart catheterization. He had a history of previous inferior myocardial infarction who has previously been following up at the [facility], [place]. He has a history of coronary artery disease status post drug-eluting stent to RCA in 2004, right bundle branch block, hypertension, hyperlipidemia, anemia, and diabetes. He states right side chest pain that has occurred at rest. This lasts less than 5 minutes. This occurs once a month. He states prior to stenting in 2004 he note right arm numbness and weakness. He describes this a minor ache. This may also be noted on right side of neck. He rates it a /10. He denies symptoms of shortness of breath with exertion, shortness of breath at rest, orthopnea, PND, sudden weight gain, or bilateral lower extremity edema. He denies chronic cough. He denies palpitations, lightheadedness, dizziness, near syncope, or syncopal episodes. He denies claudication issues. He denies fever or chills. He denies blood in urine, blood in stool, or epistaxis. He denies myalgia. He denies unexplainable fatigue. His exercise tolerance is stable. He underwent a stress test on 01/25/2023 to evaluate symptoms. This was considered to be mildly abnormal at a moderate workload showing inferolateral ischemia. On account of history, symptoms, and abnormal stress test, he will proceed with heart catheterization. Intake Vital Signs: See EMR Intake Visit Reasons: [facility] Ict Educator Required: No Is patient in pain?: No Allergies amoxicillin [From Augmentin] Allergy (Severe, Verified 01/07/23 08:38) Unknownclavulanic acid [From Augmentin] Allergy (Severe, Verified 01/07/23 08:38) Unknownatorvastatin [From Lipitor] Allergy (Verified 01/07/23 08:38) Pain in jointsmetformin [From Glucophage] Allergy (Verified 01/07/23 08:38) Rashpollen extracts Allergy (Verified 01/07/23 08:38) Other Medications See EMR [facility] Medical History (Reviewed 01/07/23 @ 08:44 by Richardson Ivy PROFESSOR OF ENVIRONMENTAL SCIENCE, PROFESSOR OF ENVIRONMENTAL SCIENCE-C) Acute maxillary sinusitis, unspecified Anemia Arthritis Atherosclerosis of coronary artery of [place] heart without angina pectoris Cataracts, bilateral Essential (primary) hypertension Family history of colon cancer in father Family history of malignant neoplasm of colon in father H/O transfusion of whole blood Hemorrhoids History of testicular cancer Hyperlipidemia Lab test negative for COVID-19 virus Obesity due to excess calories Old inferior wall myocardial infarction Personal history of colonic polyps Pneumonia Right bundle branch block (RBBB) with left anterior fascicular block Seasonal allergies Skin cancer 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 diabetic retinopathy URI (upper respiratory infection) Surgical History (Reviewed 01/07/23 @ 08:44 by Richardson Ivy PROFESSOR OF ENVIRONMENTAL SCIENCE, PROFESSOR OF ENVIRONMENTAL SCIENCE-C) H/O colonoscopy H/O inguinal hernia repair H/O tympanostomy (2020) History of appendectomy History of coronary artery stent placement (2004) History of incisional hernia repair History of orchiectomy History of tonsillectomy and adenoidectomy Family History (Reviewed 01/07/23 @ 08:44 by Richardson Ivy PROFESSOR OF ENVIRONMENTAL SCIENCE, PROFESSOR OF ENVIRONMENTAL SCIENCE-C) Mother Cancer pancreaticFather Cancer colonSister Diabetes CAD (coronary artery disease)Aunt Colon cancer Breast cancer Social History (Reviewed 01/07/23 @ 08:44 by Richardson Ivy PROFESSOR OF ENVIRONMENTAL SCIENCE, PROFESSOR OF ENVIRONMENTAL SCIENCE-C) Smoking Status: Never smoker second hand exposure: No alcohol intake: current substance use type: does not use ROS Const Const: Positive for other (Low back pain); Negative for fatigue, weakness, headache(s), frequent falls, difficulty sleeping or excessive sweating Eyes Eyes: Negative for loss of peripheral vision, transient loss of vision, blurry vision, double vision or tunnel vision ENT ENT: Positive for dizziness (rare); Negative for headache(s), Nosebleed/epistaxis or balance problems Cardio Chest Pain: Yes Palpitations: No Edema: None Muscle aches with walking: None Resp Respiratory: Negative for SOB with activity, SOB at rest, SOB orthopnea\SOB lying down, Cough or paroxysmal nocturnal dyspnea GI GI: Negative nausea, vomiting, heartburn or black,tarry stools : Negative for hematuria Musc Musc: Negative for muscle aches/ myalgia, muscle weakness, joint pain or balance problems Skin Skin: Negative non-healing lesions, rash or unusual bruising Neuro Neuro: Positive for dizziness (rare); Negative for lightheadedness, near syncope, syncope, frequent falls, headache(s), weakness, blurry vision, double vision or lack of coordination [place] Hematologic/Lymphatic: Negative for easy bleeding or easy bruising Endo Endo: Negative for fatigue, excessive sweating or increased thirst/drinking Psych Psych: Negative for anxiety or depression Allergy Allergy/Immunology: Negative for hives and Negative for rash Cardiology Exam Const Appearance: cooperative, healthy appearing, comfortable and no acute distress Nutritional Appearance: well nourished and obese Orientation: alert, awake and oriented x3 Head Head: normal to inspection Ears: hearing grossly normal bilaterally Nose: external nose normal Face and Sinus: face symmetric Mouth: oral mucosae normal Eyes General: appearance normal, both eyes and all related structures Eyelids: eyelids normal EOM: EOM intact bilaterally Neck Neck: normal visual inspection and no JVD Carotids: normal carotid upstroke Chest Chest inspection: normal inspection of the chest, symmetric chest movement and normal respiratory effort; Negative cough Auscultation: Left: Clear to Auscultation and Right: Diminished Base Cardio Rate: regular rate Rhythm: regular rhythm Heart sounds: S1 normal and S2 normal; Negative rub, gallop or murmur GI GI: normal to inspection and obese Neuro General: patient alert, patient awake, patient oriented x3 and CN's II-XI intact bilaterally Skin Skin: no rashes or lesions noted Extremities Pulses: Normal: Right Posterior Tibial Pulse, Left Posterior Tibial Pulse, Right Radial Pulse and Left Radial Pulse Lower Extremity Edema: None: Bilateral Psych Psychological: normal affect Supplemental Info Supplemental Information Echocardiogram from 06/19/2017: Interpretation Summary Normal LV size. Mild concentric left ventricular hypertrophy. Left ventricle systolic function is normal. The estimate ejection fraction is 60%. Transmitral and pulmonary venous Doppler flow suggestive of impaired relaxation of left ventricle. Stress test from 01/25/2023: Conclusion: Mildly abnormal exercise myocardial perfusion stress test at a moderate workload Mild inferolateral ischemia Preserved ejection fraction. Assessment and Plan Assessment and Plan (1) History of coronary artery stent placement: Status: Resolved Comment: SUZETTE-RCA 2004. At [facility] Plan: Given his history of coronary artery disease and stenting in 2004, previous symptoms noted on right side of chest, and diabetes, he underwent a stress test to rule out coronary artery disease component to chest pain on 01/25/2023. On account of abnormal stress test, he will proceed with heart catheterization. Depending on results, further recommendation will be made. (2) Essential (primary) hypertension: stress test, he will proceed with heart catheterization. Status: Chronic Plan: We will continue to observe and adjust medication as necessary. (3) Hyperlipidemia: Status: Chronic Qualifiers: Hyperlipidemia type: pure hypercholesterolemia Qualified Code(s): E78.00 - Pure hypercholesterolemia, unspecified; E78.00 - Pure hypercholesterolemia, unspecified; E78.00 - Pure hypercholesterolemia, unspecified; E78.0 - Pure hypercholesterolemia Plan: He will continue current statin medication, Crestor 20 mg p.o. daily. He expects this and other laboratory testing including kidney function and electrolytes to be evaluated primary care physician in the near future. Laboratory Tests 06/26/22 09:00 Hemoglobin A1c 7.9 H Triglycerides 212 H Cholesterol 115 LDL Cholesterol 39 HDL Cholesterol 34 L
[2023-02-08 10:51] LABS: Anion Gap -1 (5-15); BUN 18 mg/dL (7-18); BUN/Creat Ratio 13.8 RATIO (10-20); Calcium,Total 8.7 mg/dL (8.5-10.1); Chloride 112 mmol/L (98-107); EST Glomerular Filtration Rate 58 mL/min (>60); Est Glom Filt Rate - Afr Amer 70 mL/min (>60); Glucose 141 mg/dL (74-106); Potassium 4.5 mmol/L (3.5-5.1); Sodium Level 142 mmol/L (136-145)
[2023-02-11 08:48] VITALS: BMI 43.0
--- NOTE | 2023-02-12 11:56 | CL.D_ITS ---
Patient Name: ROBERT LIPSCOMB Study Date: 02/12/2023 Performing: Melita Armendariz MD Ht: 70 inches 177.8 cm : 1955 Wt: 300.01 lbs 136.08 kg Age: 67 Gender: male BSA: 2.48 PROCEDURE(S) PERFORMED DC02-([id number])[facility]ICAL PROFILE AND INDICATIONS Indications: New Onset Angina <= 2 months Heart Failure: None Stress/Imaging Stress Test w/SPECT MPI: Yes Result: Positive Intermediate RiskStress Test with SPECT MPI: Positive Intermediate Risk Angina Classification Anginal Classification w/in 2 Weeks: CCS II CONCLUSIONS 80% calcified ostial LAD; 50-60% Mid LAD 80% Mid RCA 60% Prox OM2; 90% ostial late OM2 (small 1.5 mm vessel) RECOMMENDATIONS Surgery consult for coronary revascularization DESCRIPTION OF PROCEDURE The patient arrived to the procedure lab. The risks and benefits of the procedure as well as a full description of our services here and current unavailability of surgical backup were fully explained to the patient and/or their significant other prior to the catheterization. The Timeout was completed, verifying the correct patient and procedure. The patient's procedural site was prepped and draped in the usual fashion. Local anesthetic was given subcutaneously to right radial region with Lidocaine 2%. Using a modified Seldinger technique, arterial access was obtained via the right radial artery, a 6Fr sheath was inserted. Right Coronary Artery selective angiography was then performed in multiple views using a 5 Fr. 4.0 [place] catheter. Left Coronary Artery selective angiography was performed in multiple views using a 5 Fr. 4.0 [place] catheter.The arterial sheath was pulled and a TR Band was applied for hemostasis. 15cc of air, sheath flushed and aspirated before pull CORONARY ANGIOGRAPHY DOMINANCE: Right Dominant LEFT ANTERIOR DESCENDING ARTERY: LAD: Calcified 80% Ostial lesion in LAD Calcified 60% Mid lesion in LAD OM 2: Tubular 60% Proximal lesion in 2nd OM RIGHT CORONARY ARTERY: RCA: Calcified 80% Mid lesion in RCA RPLS: In-Stent Restenosis 50% Ostial lesion in RPL1 COMPLICATIONS No Complications PROCEDURE MEDICATIONS Fentanyl 50 mcg IV Versed 1 mg IV Fentanyl 50 mcg IV Versed 1 mg IV Versed 1 mg IV Oxygen: 2 L/min via nasal cannula Heparin given IA 02/12/2023 11:13:52 Verapamil 2.5mg, Ntg 200mcgs, 2000 units of Heparin given IA 02/12/2023 11:13:52 SUMMARY OF HEMODYNAMIC DATA Time AIR REST ECG 08:40:19 AO 117/56 (82) SA 11:20:14 Signed By Melita Armendariz MD On 02/12/2023 11:56:07 Melita Armendariz MD
== END | disposition home or self-care (01) ==
PROVIDERS: Nurse Practitioner Family; PCP Family Medicine; Referring Provider Internal Medicine Cardiovascular Disease; Visit Provider Internal Medicine Cardiovascular Disease
DX: I70.0 Atherosclerosis of aorta (principal); E66.01 Morbid (severe) obesity due to excess calories; E11.9 Type 2 diabetes mellitus without complications; I25.10 Atherosclerotic heart disease of native coronary artery without angina pectoris; I10 Essential (primary) hypertension; I25.2 Old myocardial infarction; Z95.5 Presence of coronary angioplasty implant and graft; E78.00 Pure hypercholesterolemia, unspecified; Z79.82 Long term (current) use of aspirin; I45.10 Unspecified right bundle-branch block
CPT/HCPCS: 36415; 71046; 80048; 85025; 85610; 85730; 93454; 99152; 99153; J7040; Q9967; C1769; C1894

== ENCOUNTER → 2023-03-13 | Outpatient (CLI) | payer MEDICARE, OTHER, SELFPAY ==
--- NOTE | 2023-03-13 14:02 | ECHOCS_ITS ---
Reason For Study: AAA Procedure This was a 2D Doppler, Color Flow transthoracic echocardiogram. The study was technically difficult. Contrast injection was performed. Exam performed in department. Left Ventricle Normal LV size. The left ventricular ejection fraction is 65 %. Normal diastology for age. Right Ventricle Normal RV size. RV apex is hypokinetic. Atria The left atrium is mildly enlarged. Normal right atrium. Mitral Valve The mitral valve is structurally normal. No prolapse or stenosis seen. Mild (1+) mitral valve insufficiency. Tricuspid Valve Trivial tricuspid valve insufficiency. Unable to estimate RV systolic pressure due to insufficient tricuspid regurgitant envelope. Aortic Valve Trisinus/trileaflet aortic valve. Pulmonic Valve The pulmonic valve is not well visualized. Mild (1+) pulmonic valve insufficiency. Great Vessels Normal aortic root. Pericardium/Pleural No pericardial effusion. Medication 22 gauge I.V. with prn adaptor inserted into right arm. Diluted definity 2ml given slow IV push to enhance endocardial definition. MMode/2D Measurements & Calculations LVIDd: 5.2 cm IVSd: 1.3 cm Ao root diam: 3.4 cm LVIDs: 4.0 cm LVPWd: 1.1 cm RVDd: 3.7 cm FS: 23.7 % LAV(MOD-bp): 52.5 ml LVAd ap4: 37.3 cm2 SV(MOD-sp4): 82.0 ml LAV(MOD-bp) Indexed: 21.4 ml/m2 LVLd ap4: 8.5 cm LAV(MOD-sp2): 44.5 ml EDV(MOD-sp4): 141.8 ml LAV(MOD-sp4): 52.2 ml EDV(sp4-el): 139.0 ml LVAs ap4: 22.8 cm2 LVLs ap4: 7.5 cm ESV(MOD-sp4): 59.7 ml ESV(sp4-el): 58.8 ml EF(MOD-sp4): 57.9 % EF(sp4-el): 57.7 % SV(sp4-el): 80.2 ml LA A4 area: 19.2 cm2 LA dimension(2D): 3.7 cm RA A4 area: 17.0 cm2 TAPSE: 2.2 cm Time Measurements MV dec time: 0.26 sec Doppler Measurements & Calculations MV E max jonh: 98.1 cm/sec Lat Peak E' Jonh: 9.6 cm/sec Med Peak E' Jonh: 6.4 cm/sec MV A max jonh: 117.9 cm/sec E/E' lat: 10.2 E/E' med: 15.3 MV E/A: 0.83 MV V2 max: 121.4 cm/sec MV dec slope: 383.9 cm/sec2 Ao V2 max: 93.4 cm/sec MV max P.9 mmHg Ao max P.5 mmHg MV V2 mean: 69.6 cm/sec Ao V2 mean: 65.0 cm/sec MV mean P.2 mmHg Ao mean P.0 mmHg MV V2 VTI: 33.0 cm Ao V2 VTI: 19.7 cm AV (velocity ratio): 0.75 LV V1 max: 80.2 cm/sec PA V2 max: 96.4 cm/sec PI dec slope: 138.1 cm/sec2 LV V1 max P.7 mmHg PA V2 mean: 71.0 cm/sec LV V1 mean P.3 mmHg LV V1 mean: 49.0 cm/sec LV V1 VTI: 14.7 cm ECHO/Echo Complete W/ Contrast Interpretation Summary The left ventricular ejection fraction is 65 %. RV apex is hypokinetic. Mild (1+) mitral valve insufficiency. The left atrium is mildly enlarged. The study was technically difficult. Ordering Physician: CLAUDE CHILDRESS Referring Physician: Krunal Overton Performed By: Brenda Kincaid RCS
--- NOTE | 2023-03-13 14:54 | CT_ITS ---
INDICATION: AAA EXAMINATION: CT CHEST WITHOUT CONTRAST - CT Chest W/O Contrast Injection TECHNIQUE: Helically acquired images were obtained of the chest. A radiation dose optimization technique was used for this scan. IV Contrast dosage and agent: None. COMPARISON: None. FINDINGS: LUNGS, PLEURA AND LARGE AIRWAYS: Elevated right hemidiaphragm and mild subsegmental atelectasis at the right base. No pleural effusion or thickening. No pneumothorax. THYROID: No thyroid lesions. HEART AND PERICARDIUM: Heart size is normal. No pericardial effusion. CORONARY ARTERIES: Multivessel coronary artery calcification VESSELS: Mild atherosclerotic changes of the aorta without evidence for aneurysm MEDIASTINUM AND GIANNI: No mediastinal or hilar adenopathy. Esophagus is unremarkable. No hiatal hernia. UPPER ABDOMEN: Postop change status post cholecystectomy BONES. The dorsal spine demonstrates arthritic changes: No suspicious lytic or blastic abnormality. CT/Chest without Contrast IMPRESSION: ASHD without evidence for aortic aneurysm. Elevated right hemidiaphragm and mild basilar atelectasis Electronically Signed: Tc Palacios MD at 20:31 EDT ,
== END | disposition home or self-care (01) ==
LOC: CVS 13:47
PROVIDERS: PCP Family Medicine; Visit Provider Surgery
DX: I71.21 Aneurysm of the ascending aorta, without rupture (principal)
CPT/HCPCS: 71250; 93306; Q9957; A4216; C8929

== ENCOUNTER → 2023-04-09 | Outpatient (CLI) | payer MEDICARE, OTHER, SELFPAY ==
[2023-04-09 12:54] LABS: Anion Gap 6 (5-15); BUN 19 mg/dL (7-18); BUN/Creat Ratio 13.3 RATIO (10-20); Calcium,Total 8.8 mg/dL (8.5-10.1); Chloride 106 mmol/L (98-107); Creatinine, Serum 1.43 mg/dL (0.70-1.30); EST Glomerular Filtration Rate 52 mL/min (>60); Est Glom Filt Rate - Afr Amer 63 mL/min (>60); Glucose 228 mg/dL (74-106); Potassium 4.5 mmol/L (3.5-5.1); Sodium Level 137 mmol/L (136-145)
== END | disposition home or self-care (01) ==
PROVIDERS: PCP Family Medicine; Visit Provider Family Medicine
DX: N17.9 Acute kidney failure, unspecified (principal)
CPT/HCPCS: 36415; 80048

== ENCOUNTER → 2023-05-01 | Outpatient (CLI) | payer MEDICARE, OTHER, SELFPAY ==
[2023-05-01 12:41] LABS: Anion Gap 4 (5-15); BUN 12 mg/dL (7-18); BUN/Creat Ratio 9.4 RATIO (10-20); Calcium,Total 9.1 mg/dL (8.5-10.1); Chloride 106 mmol/L (98-107); Creatinine, Serum 1.28 mg/dL (0.70-1.30); EST Glomerular Filtration Rate 59 mL/min (>60); Est Glom Filt Rate - Afr Amer 72 mL/min (>60); Glucose 135 mg/dL (74-106); Potassium 4.6 mmol/L (3.5-5.1); Sodium Level 139 mmol/L (136-145)
[2023-05-01 13:00] LABS: Microalbumin,Random Urine 27.1 mg/L (NO RANGE EST.); Microalbumin:Creatinine Ratio 19.4 mg/g CRE (<30 mg/g CRE)
== END | disposition home or self-care (01) ==
LOC: BFHLAB 08:43
PROVIDERS: PCP Family Medicine; Visit Provider Family Medicine
DX: N17.9 Acute kidney failure, unspecified (principal); E11.3299 Type 2 diabetes mellitus with mild nonproliferative diabetic retinopathy without macular edema, unspecified eye; I25.10 Atherosclerotic heart disease of native coronary artery without angina pectoris; I10 Essential (primary) hypertension
CPT/HCPCS: 36415; 80048; 82043; 82570

== ENCOUNTER → 2023-05-01 | Outpatient (CLI) | payer MEDICARE, OTHER, SELFPAY ==
--- NOTE | 2023-05-01 12:56 | PCM.CR.HP2 ---
CR - History & Physical General Arrival date:: 05/01/23 Arrival time:: 12:57 Date of Referral:: 04/18/23 Date of CR Evaluation:: 05/01/23 Referring Physician: Dr. Hadley Chilel Primary Diagnosis: S/P CABG 03/21/23 History of Present Cardiac Event Onset Date Coronary Artery Bypass Graft:: Yes (03/21/23) Vessel: PIERSON to LAD, SVG to OM, SVG to RPDA Medications Ambulatory Orders Medication Instructions Recorded arezvbcb-kay-smgwk acid 0.4 1 tab PO QAM 06/06/17 mg-lycopene 300 mcg-lutein 250 mcg tablet (Centrum Silver) pen needle, diabetic 32 gauge x #270 ea 12/27/1706/27 (Comfort EZ Pen [place]) blood sugar diagnostic (Accu-Chek #180 ea 08/10/18 Lisa Plus test strips) blood-glucose meter (Accu-Chek #1 ea 08/10/18 Lisa Plus Meter) lancets (Accu-Chek Multiclix #60 ea 08/10/18 Lancet) nitroglycerin 0.4 mg sublingual 0.4 mg sublingual Q5M PRN 01/13/21 tablet (Nitrostat) Cardiac/Chest Pain #25 tabs liraglutide 0.6 mg/0.1 mL (18 mg/3 1.2 mg subcut DAILY e08.319 01/09/22 mL) subcutaneous pen injector (Victoza 3-Joe) atenolol 50 mg tablet 50 mg PO QDAY #90 tabs 01/02/23 rosuvastatin 20 mg tablet 20 mg PO DAILY #90 tabs 01/07/23 acetaminophen 500 mg tablet 500 mg PO Q6H PRN 04/18/23 (Tylenol Extra Strength) aspirin 81 mg tablet,delayed 81 mg PO QDAY 04/18/23 release (Adult Aspirin Regimen) insulin aspart U-100 100 unit/mL subcut 04/18/23 (3 mL) subcutaneous pen (Novolog FlexPen U-100 Insulin aspart) insulin glargine 100 unit/mL (3 55 unit subcut DAILY 04/18/23 mL) subcutaneous pen (Lantus Solostar U-100 Insulin) Allergies Allergies amoxicillin [From Augmentin] Allergy (Severe, Verified 04/18/23 10:04) Unknown clavulanic acid [From Augmentin] Allergy (Severe, Verified 04/18/23 10:04) Unknown atorvastatin [From Lipitor] Allergy (Verified 04/18/23 10:04) Pain in joints metformin [From Glucophage] Allergy (Verified 04/18/23 10:04) Rash pollen extracts Allergy (Verified 04/18/23 10:04) Other Sleep Disorder Evaluation Hx of Sleep Apnea: No Do you snore loudly (louder than talking or can be heard through closed doors)?: No Do you often feel tired/ fatigued/ sleepy during daytime?: No Has anyone observed you stop breathing during sleep?: No History of Hypertension (for STOP score): Yes STOP Results: Negative Advanced Directives Advanced Directives Power of Nursing Professor: Yes Living Will: Yes Advance Directives Information Provided: Yes Advance Directives on File: Yes DNR Order?:: No Past Medical History Covid-19 Screening Physicial Symptoms Other Clinical Concerns Exposure Risk Pertinent Comorbidities 65 years or older:: Yes Has a serious heart condition:: Yes Diabetic:: Yes Past Medical Illness Past Medical History (Updated 04/18/23 @ 10:48 by Eveline Benitez) Acute maxillary sinusitis, unspecified J01.00 Anemia D64.9 not current Arthritis M19.90 Atherosclerosis of coronary artery of [place] heart without angina pectoris I25.10 SUZETTE-RCA 2004; PIERSON-LAD, SVG-OM, SVG-rPDA 03/21/23 [facility] Cataracts, bilateral H26.9 Essential (primary) hypertension I10 Family history of colon cancer in father Z80.0 Family history of malignant neoplasm of colon in father Z80.0 H/O transfusion of whole blood Z92.89 Hemorrhoids K64.9 History of testicular cancer Z85.47 Hyperlipidemia E78.5 Lab test negative for COVID-19 virus Z20.822 Obesity due to excess calories E66.09 Old inferior wall myocardial infarction I25.2 Personal history of colonic polyps Z86.010 Pneumonia J18.9 twice Right bundle branch block (RBBB) with left anterior fascicular block I45.2 Seasonal allergies J30.2 Skin cancer C44.90 removal, currently resolved 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 diabetic retinopathy E08.319, E08.65 URI (upper respiratory infection) J06.9 Past Surgical History Past Surgical History (Updated 04/18/23 @ 11:06 by Richardson Ivy GAS APPLIANCE ADJUSTER, GAS APPLIANCE ADJUSTER-C) H/O colonoscopy Z98.890 H/O inguinal hernia repair Z98.890, Z87.19 5 hernia repairs last 2001 H/O tympanostomy (2020) Z98.890 History of appendectomy Z98.890, Z90.49 History of coronary artery bypass surgery (03/21/23) Z95.1 PIERSON-LAD, SVG-OM, SVG-rPDA 03/21/[address] [facility] [address] Escobedo; History of coronary artery stent placement (2004) Z95.5 SUZETTE-RCA 2005. 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 Hobbies, Recreation, Social Activities Recreational Activities: I am able to engage in most, but not all activities and I am able to engage in a few activities Social Environment Status Marital Status: Current Living Arrangements Living Environment:: Spouse Children How many children do you have?: 1 Do any of your children live nearby?: No Safety Do you feel safe in your surroundings?: Yes Assistance Do you need any assistance at home?: no Review of Systems Review of Systems Hints Review of Present Symptoms: Reports Shortness of Breath with Exertion, Dizziness/Lightheadedness, Fatigue, Appetite - Normal and Appetite - Special Diet; Denies Shortness of Breath at Rest, PVD, Operative Discomfort, Angina, Wound Healing, Heart Arrhythmia/Irregularities, Sleep - Normal or Sexual Changes Pain Pain Location: back Pain Level: 08/31 Risk Factor Assessment Chief Complaint Chief Complaint: S/P CABG Vital Signs Blood Pressure: 115/58 Pulse Pulse Rate: 80 Hypertension Blood Pressure Sitting - Right Arm: 115/58 Diabetes Diabetic History: Type II Nutrition Referral for Diabetes: Yes Obesity Height: 5 ft 10 in Weight:: 282 lb Weight in Pounds: 282.0 lbs Body Mass Index (BMI): 40.4 Nutritional Referral for Obesity: No Physical Inactivity Physical Inactivity: Reg Exercise 30 min/day Risk Stratification Risk Guidelines: Moderate Risk: Risk Factor for Smoking and Risk Factor for Depression and Highest Risk: Risk Factor for Dyslipidemia, Risk Factor for Diabetes, Risk Factor for Obesity, Risk Factor for Hypertension and Risk Factor for Sedentary Lifestyle For Smoking Smoking Risk Guidelines For Dyslipidemia Dyslipidemia Risk Guidelines For Diabetes Mellitus Diabetes Risk Guidelines For Obesity/Overweight Obesity/Overweight Risk Guidelines For Hypertension Hypertension Risk Guidelines For Sedentary Lifestyle Sedentary Lifestyle Risk Guidelines For Depression Depression Risk Guidelines Family History Family History Mother Cancer Father Cancer Sister Diabetes CAD (coronary artery disease) Aunt Colon cancer Breast cancer Motivation Motivation to Participate On a scale of 1 to 10, how prepared are you to commit to attending program?: 6 What do you see as barriers to successfully being able to complete the program?: no What do you see as the benefits of succesfully completing the program? In other words, what do you hope to get out of participating in the program?: stmina Are there issues you are dealing with that will interfere with completing the program?: no Do you have a spouse or signficant other, family or friends who will help support you to complete the program?: yes
[2023-05-01 13:05] VITALS: BP 115/58; PULSE 80
--- NOTE | 2023-05-01 13:05 | CR.ITP_ITS ---
Diagnosis General Information Admitting Diagnosis: S/P CABG Personal Learning Style:: Audio/Visual Stage of change r/t lifestyle modifications:: Contemplation Gave educational material for:: Treating Heart Disease, How The Heart Works, What it means to have Heart Disease, How Coronary Artery Disease is Diagnosed, Heart Procedures, What Heart Medications Do, Risk Factors & Modifications, Living an Active Life, Nutrition, Emotions & Heart Disease, Stress Management & Relaxation and Sleep Disorders & Heart Disease Education/Goals Cardiac Rehabilitation Goals Personal Goals: Initial Assessment: Improve energy level, Improve knowledge of cardiac disease, Improve muscle strength and endurance, Improve diet and eating habits (eat healthier) and Control risk factors (learn risk factor modification) Scale for measuring improvement of personal goals Diagnosis & Disease Process Outcomes/Goals: Pt IDs own risk factors & lifestyle modifications by Session 10, Verbalizes symptoms of angina & response by session 3., Pt independently manages and Other Additional Outcomes/Goals: Plan/Interventions: Assist Pt to ID & engage in lifestyle modification to reduce CVD risk, Instruct on individual risk factors, Review symptoms of angina & emergency actions, Review secondary diagnosis & identify educational needs. and Other see comment 30 day Reassessments:: Not Met 30 day Reassessments:: Not Met 30 day Reassessments:: Not Met 30 day Reassessments:: Not Met Final Reassessments:: Not Met Safety Referral to Physical Therapy: No Referral to [facility] Case Management: No Fall Risk Assessed:: Yes Assistive Devices:: Cane Exercise - Initial Assessment Visit Date of Eval: 05/01/23 (initial eval ) Mets: Pre-: >3 METS for 30 minutes by discharge, >5 METS for 30 minutes by discharge, >7 METS for 30 minutes by discharge and Unable to meet goal due to: (see comment below) Physician Prescribed Exercise Modalities: Treadmill, Airdyne, NuStep, SciFit and Lateral [place] Frequency: 3x/week for 12 weeks [36 sessions] Intensity: 60-80% of age predicted maximum heart rate reserve Target Heart Rate:: 91-113 Resting Blood Pressure: 115/58 EKG Type: SR with RBBB Outcomes & Goals Goals:: Verbalizes understanding of THR, RPE & goal METS by session 6, Documents in home exercise log/reports 30 min aerobic 5 day/wk by DC, Demonstrates accu rate pulse taking by DC and Other additional outcome/goals: see below Intervention & Plan Exercise Program Goals: Instruct on personal THR & RPE, Instruct on MET level & personal MET goal, Show patient to take own pulse /validate performance until accurate, Instruct on home exercise and Other additional plan/int Physical Activity Home Exercise Physical Activity - Home Exercise: Safe Exercise, Warm-up, Self-monitoring, Cool-Down, Home Exercise > 30 min Daily and Sitting Time <3 hours/daily Outcomes & Goals Outcomes/Goals: Demonstrates correct Warm-up/exercise Cool-Down (S3) if = 2.5 METs, Verbalizes symptoms of exercise intolerance by Session 3 (S3), Demonstrate safe equipment use (S3) & follows exercise prescrition (6) and Other: See below Intervention & Plan Plan/Intervention: Instruct warm-up & cool-down if exercising at > 2 METs, Instruct on symptoms of exercise intolerance & actions to take, Instruct & monitor on saf, Assess intial functional capacity & safety risk and Other See below Nutrition - Initial Assessment Program Goals Nutrition Program Goals Patient has diagnosis of Hyperlipidemia (ICD E78)?: Yes Visit Date of Eval: 05/01/23 (initial eval ) Cholesterol/Lipids (Other Core Measures) Determine presence & major risk factors that modify LDL goal: Cigarette smoking, Hypertension or hypertensive medication, Low HDL cholesterol <40 mg/dL*, Family history of premature CHD in Male < 55 years: female <65 yearsFa and Age men > 45 years; women >/= 55 years Outcomes/Goals: Pt IDs own risk factors & lifestyle modifications by Session 10, Verbalizes symptoms of angina & response by session 3., Pt independently manages and Other Additional Outcomes/Goals: Intervention/Plan: Advocate for lipid panel cholesterol medication if applic able, Instruct on personal lipid levels & lipid goals/NCEP guidelines, Instruct on cholesterol and Other additional plan/int Referral to dietitian:: Yes Diabetes (Other Core Measures) Diabetes Type: Diagnosis Type II ICD-10 E11 Insulin dependent injection/pump?: Yes Non-Insulin Dependent?: No Do you monitor your blood sugar at home?: Yes Referral to Diabetic Clinic:: Yes Outcomes/Goals:: Able to state symptoms of, Able to state, Able to state and Other additional Intervention/Plan:: Instruct on, Refer to, Instruct on and Other Weight Mgt (Other Care) Height: 5 ft 10 in Weight:: 282 lb BMI: 40.4 Diagnosis Overweight/Obesity BMI> 30% ICD-10 E66: Yes Diagnosis High BMI/Morbid Obesity BMI> 35% ICD-10 Z68: Yes Outcomes/Goals: Pt sets, maintains & shows weight loss goal & trend during rehab and Other additional outcomes/goals Intervention/Plan: Instruct on ideal BMI & set weight loss goal w/patient, Assist pt to ID & incorporate diet changes for weight loss by S9, Refer to Structured Weight Loss program as appropriate, Encourage goal of using 250- 300dcal per session for weight loss and Other additional plan/interventions Healthy Eating Habits Will attend diet classes:: Yes Outcomes/Goals:: Consume diet rich in vegs,fruits,whole grain/high fiber,fish,lean meat, Limit sat/trans fats,cholesterol & added salts & sugars and Other additional outcome/goals: Intervention/Plan:: Assess current eating habits and Other Additional plan/interventions Education Gave educational materials for:: Signs & symptoms of hypoglycemia, Signs & symptoms of hyperglycemia, Relate diabetes to coronary artery disease and Healthy eating Core - Initial Assessment Visit Date of Eval: 05/01/23 (initial eval ) Medication Compliance Preventative Medication(s):: Aspirin, Statin/lipid and Beta sherwin H/O mental health issues: depression, anxiety, or addiction?: No Doesn?t believe in the benefits of treatment?: No Believes medications are unnecessary or harmful?: No Has a concern about medication side effects?: No Expresses concern over the cost of medications?: No Outcomes/Goals: Verbalizes medications,desired effect & common side effects @ DC, Pt self-reports following medication regimen, Keeps card in wallet w/medications listed by DC and Other additional outcome/goals: Interventions/plans: Instruct on medication effects & side effects, Review medic ation list w/patient every two weeks, Instruct importance of taking meds as ordered & assist problem solving and Other additional Tobacco Use Tobacco Use: Non-smoker Hypertension Hypertension Diagnosis:: Hypertension ICD-10 I10 Resting Blood Pressure:: 115/58 [place] [employer] Hypertension Guidelines Outcomes/Goals: Able to verbalize/achieve optimal blood pressure <130/80, Incorporates diet changes & exercise for blood pressure control by DC and Other additional outcomes/goals Interventions/plan: Instruct on optimal blood pressure, hypertension & medications, Instruct on effects of sodium, alcohol, stress, exercise &hypertension and Other additional plan/interventions Tobacco Cessation Referral Smoking Cessation Referral:: No Individual Education/Counseling:: No Education Schedule Given:: Yes Psychosocial - Initial Assess VIsit Date of Eval: 05/01/23 (initial eval ) History of previous Mental disease:: No Target Goals Target Goals Patient Health Questionnaire PHQ-9 Screening Initial Assessment: 1. Little interest or pleasure in doing things: Not at all 2. Feeling down, depressed, or hopeless: Not at all 3. Trouble falling or staying asleep, or sleeping too much: Not at all 4. Feeling tired or having little energy: Not at all 5. Poor appetite or overeating: Not at all 6. Feeling bad about yourself -- or that you are a failure or have let yourself or your family down: Not at all 7. Trouble concentrating on things, such as reading the newspaper or watching television: Not at all 9. Thoughts that you would be better off , or of hurting yourself in some way: Not at all How difficult have these problems made it for you to do your work, take care of things at home, or get along with other people?: Not difficult at all Total Score: 0 MOOSE-Q SV Test Statements CAD is a disease of the arteries in the heart: False Examples of risk factors for heart disease: True Angina is chest pain or discomfort: True The benefits of resistance training include: True Eating more meat and dairy products: False Anti-platelet medications such as aspirin are important: True The only effective way to manage stress: False An exercise warm-up slowly increases heart rate: True Prepared, processed foods usually have high sodium: True Depression is common after a heart attack: True The statin medications lower cholesterol: True To control blood pressure, lower the amount of sodium: True If someone gets chest discomfort during walking: False Transfats are partially hydrogenated vegetable oils: True Sleep apnea that is not treated increases the risk: False To control cholesterol, one should become a vegetarian: False Someone knows if he/she is exercising at the right level: True Diabetes cannot be prevented with exercise & health eating: False Stress is a large risk for heart attack: True A diet that can help lower blood pressure is rich in: True Total Score Total Correct Responses: 20 Self-Efficacy 6-Item Scale Initial Assessment: We would like to know how confident you are in doing certain activities. Please select your confidence level for: Fatigue Select Number: 5 Physical Discomfort or Pain Select Number: 5 Emotional Distress Select Number: 5 Other Symptoms or Health Problems Select Number: 5 Different Tasks and Activities Select Number: 5 Medication Select Number: 5 Total Score:: 5 Nutrition Survey Nutrition Survey Instructions Scoring Instructions Nutrition Survey Initial: Have you lost >10 lbs over the past 2 months without trying?: Yes Are you following a special diet at home for diabetes, low fat, or low salt?: Yes Are you interested in meeting with a dietitian for help understanding your diet?: Yes Do you eat less than 3 meals a day?: No Do you eat fatty meats (stern, sausage, ribs, etc), fried foods, desserts, large amounts of salad dressings, margarine, butter, or cheese most days?: No Do you have food allergies? [Enter types in comment field]: No Do you eat in restaurants more than 3 times a week?: No Do you season food with salt, seasoning salt, or garlic salt?: Yes Do you used canned, boxed, frozen meals, or soups, seasoning packets?: Yes Total Score:: 5 Exercise - Final/Discharge Physician Prescribed Exercise Modalities: Treadmill, Airdyne, NuStep, SciFit and Lateral [employer] Agent Frequency: 3x/week for 12 weeks [36 sessions] Intensity: 60-80% of age predicted maximum heart rate reserve Target Heart Rate:: 91-113 Nutrition - 30-Day Assessment Weight Mgt (Other Care) Height: 5 ft 10 in Weight:: 282 lb BMI: 40.4 Nutrition - 60-Day Assessment Weight Mgt (Other Care) Height: 5 ft 10 in Weight:: 282 lb BMI: 40.4 Core - Final Assessment Hypertension Resting Blood Pressure:: 115/58 [place] [employer] Hypertension Guidelines Core - 60-Day Assessment Hypertension Resting Blood Pressure:: 115/58 [place] [employer] Hypertension Guidelines Psychosocial - 30-Day Assess Target Goals Target Goals Psychosocial - 60-Day Assess Target Goals Target Goals Psychosocial - 90-Day Assess Target Goals Target Goals Psychosocial - Final Assessmen Target Goals Target Goals Nutrition - 90-Day Assessment Weight Mgt (Other Care) Height: 5 ft 10 in Weight:: 282 lb BMI: 40.4 Nutrition - Final Assessment Program Goals Patient has diagnosis of Hyperlipidemia (ICD E78)?: Yes Weight Mgt (Other Care) Height: 5 ft 10 in Weight:: 282 lb BMI: 40.4
[2023-05-01 13:11] VITALS: BP 115/58
[2023-05-01 13:51] VITALS: BMI 40.4
[2023-05-01 14:02] VITALS: BMI 40.4
== END | disposition home or self-care (01) ==
LOC: CR 12:49
PROVIDERS: PCP Family Medicine; Referring Provider Internal Medicine Cardiovascular Disease; Visit Provider Internal Medicine Cardiovascular Disease
DX: Z95.1 Presence of aortocoronary bypass graft (principal)

== ENCOUNTER 2023-05-22 10:15 | Outpatient (RCR) | payer MEDICARE, OTHER, SELFPAY ==
[2023-05-01 14:02] VITALS: BMI 40.4
== END 2023-05-23 23:59 ==
LOC: CR 10:15
PROVIDERS: PCP Family Medicine; Referring Provider Internal Medicine Cardiovascular Disease; Visit Provider Internal Medicine Cardiovascular Disease
DX: I25.10 Atherosclerotic heart disease of native coronary artery without angina pectoris (principal); I45.2 Bifascicular block; Z95.5 Presence of coronary angioplasty implant and graft
CPT/HCPCS: 93798

== ENCOUNTER 2023-05-27 09:00 | Outpatient (RCR) | payer SELFPAY ==
[2023-05-01 14:02] VITALS: BMI 40.4
== END 2023-06-23 23:59 ==
LOC: NS 09:00
PROVIDERS: PCP Family Medicine
DX: Z71.3 Dietary counseling and surveillance (principal)

== ENCOUNTER 2023-06-21 10:15 | Outpatient (RCR) | payer MEDICARE, OTHER, SELFPAY ==
[2023-05-01 14:02] VITALS: BMI 40.4
--- NOTE | 2023-05-31 08:05 | CR.ITP_ITS ---
Exercise - Initial Assessment Visit Session #:: 9 Nutrition - Initial Assessment Weight Mgt (Other Care) Height: 5 ft 10 in Weight:: 285 lb 8 oz BMI: 40.9 Psychosocial - Initial Assess Target Goals Target Goals Patient Health Questionnaire PHQ-9 Screening 30-Day Re-eval Assessment: 1. Little interest or pleasure in doing things: Not at all 2. Feeling down, depressed, or hopeless: Not at all 3. Trouble falling or staying asleep, or sleeping too much: Not at all 4. Feeling tired or having little energy: Not at all 5. Poor appetite or overeating: Not at all 6. Feeling bad about yourself -- or that you are a failure or have let you rself or your family down: Not at all 7. Trouble concentrating on things, such as reading the newspaper or watching television: Not at all 8. Moving or speaking so slowly that other people could have noticed. Or the opposite - being so fidgety or restless that you have been moving around a lot more than usual: Not at all 9. Thoughts that you would be better off , or of hurting yourself in some way: Not at all How difficult have these problems made it for you to do your work, take care of things at home, or get along with other people?: Not difficult at all Total Score: 0 Self-Efficacy 6-Item Scale 30-Day Re-eval Assessment: We would like to know how confident you are in doing certain activities. Please select your confidence level for: Fatigue Select Number: 5 Physical Discomfort or Pain Select Number: 5 Emotional Distress Select Number: 5 Other Symptoms or Health Problems Select Number: 5 Different Tasks and Activities Select Number: 5 Medication Select Number: 5 Total Score:: 5 Nutrition Survey Nutrition Survey Instructions Scoring Instructions Exercise - 30-day Assessment Visit Date of Eval: 05/31/23 Session #:: 9 Physician Prescribed Exercise Modalities: Treadmill, NuStep and Lateral [place] Frequency: 3x/week for 12 weeks [36 sessions] Intensity: 60-80% of age predicted maximum heart rate reserve Duration: 30 - 45 minutes Current METSs:: 4.5 Target Heart Rate:: 113-128 Current RPE:: 12-13 Maximum Excercise HR:: 114 Resting Blood Pressure: 124/70 Maximum Exercise Blood Pressure: 150/70 EKG Type: SR to ST with RBBB with rare PVC Outcomes & Goals Goals:: Verbalizes understanding of THR, RPE & goal METS by session 6, Documents in home exercise log/reports 30 min aerobic 5 day/wk by DC, Demonstrates accurate pulse taking by DC and Other additional outcome/goals: see below Intervention & Plan Exercise Program Goals: Instruct on personal THR & RPE, Instruct on MET level & personal MET goal, Show patient to take own pulse /validate performance until accurate, Instruct on home exercise and Other additional plan/int 30-day Reassessments 30 day Reassessments:: Progressing Reassessment Notes & Comments:: RPE explained Physical Activity Home Exercise Physical Activity - Home Exercise: Safe Exercise, Warm-up, Self-monitoring, Cool-Down, Home Exercise > 30 min Daily and Sitting Time <3 hours/daily Outcomes & Goals Outcomes/Goals: Demonstrates correct Warm-up/exercise Cool-Down (S3) if = 2.5 METs, Verbalizes symptoms of exercise intolerance by Session 3 (S3), Demonstrate safe equipment use (S3) & follows exercise prescrition (6) and Other: See below Intervention & Plan Plan/Intervention: Instruct warm-up & cool-down if exercising at > 2 METs, Instruct on symptoms of exercise intolerance & actions to take, Instruct & monitor on saf, Assess intial functional capacity & safety risk and Other See below 30-day Reassessments 30 day Reassessments:: Progressing Reassessment Notes & Comments:: warm up encouraged Nutrition - 30-Day Assessment Program Goals Nutrition Program Goals Patient has diagnosis of Hyperlipidemia (ICD E78)?: Yes Visit Date of Eval: 05/31/23 Session #:: 9 Cholesterol/Lipids (Other Core Measures) Determine presence & major risk factors that modify LDL goal: Cigarette smoking, Hypertension or hypertensive medication, Low HDL cholesterol <40 mg/dL*, Family history of premature CHD in Male < 55 years: female <65 yearsFa and Age men > 45 years; women >/= 55 years Outcomes/Goals: Pt IDs own risk factors & lifestyle modifications by Session 10, Verbalizes symptoms of angina & response by session 3., Pt independently manages and Other Additional Outcomes/Goals: Intervention/Plan: Advocate for lipid panel cholesterol medication if applicable, Instruct on personal lipid levels & lipid goals/NCEP guidelines, Instruct on cholesterol and Other additional plan/int 30-day Reassessments:: Progressing Reassessment Notes & Comments:: 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 Diabetes (Other Core Measures) Diabetes Type: Diagnosis Type II ICD-10 E11 Insulin dependent injection/pump?: Yes Non-Insulin Dependent?: No Do you monitor your blood sugar at home?: Yes Referral to Diabetic Clinic:: Yes Outcomes/Goals:: Able to state symptoms of, Able to state, Able to state and Other additional Intervention/Plan:: Instruct on, Refer to, Instruct on and Other 30-day Reassessments:: Progressing Reassessment Notes & Comments:: 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 Weight Mgt (Other Care) Height: 5 ft 10 in Weight:: 285 lb 8 oz BMI: 40.9 Diagnosis Overweight/Obesity BMI> 30% ICD-10 E66: Yes Diagnosis High BMI/Morbid Obesity BMI> 35% ICD-10 Z68: Yes Outcomes/Goals: Pt sets, maintains & shows weight loss goal & trend during rehab and Other additional outcomes/goals Intervention/Plan: Instruct on ideal BMI & set weight loss goal w/patient, Assist pt to ID & incorporate diet changes for weight loss by S9, Refer to Structured Weight Loss program as appropriate, Encourage goal of using 250- 300dcal per session for weight loss and Other additional plan/interventions 30 day Reassessments:: Progressing Reassessment Notes & Comments:: 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 Healthy Eating Habits Will attend diet classes:: Yes Outcomes/Goals:: Consume diet rich in vegs,fruits,whole grain/high fiber,fish,lean meat, Limit sat/trans fats,cholesterol & added salts & sugars and Other additional outcome/goals: Intervention/Plan:: Assess current eating habits and Other Additional plan/interventions 30-day Reassessments:: Progressing Reassessment Notes & Comments:: 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 Education Gave educational materials for:: Signs & symptoms of hypoglycemia, Signs & symptoms of hyperglycemia, Relate diabetes to coronary artery disease and Healthy eating Nutrition - 60-Day Assessment Weight Mgt (Other Care) Height: 5 ft 10 in Weight:: 285 lb 8 oz BMI: 40.9 Core - 30-Day Assessment Visit Date of Eval: 05/31/23 Session #:: 9 Medication Compliance Preventative Medication(s):: Aspirin, Statin/lipid and Beta sherwin H/O mental health issues: depression, anxiety, or addiction?: No Doesn?t believe in the benefits of treatment?: No Believes medications are unnecessary or harmful?: No Has a concern about medication side effects?: No Expresses concern over the cost of medications?: No Outcomes/Goals: Verbalizes medications,desired effect & common side effects @ DC, Pt self-reports following medication regimen, Keeps card in wallet w/medications listed by DC and Other additional outcome/goals: Interventions/plans: Instruct on medication effects & side effects, Review medication list w/patient every two weeks, Instruct importance of taking meds as ordered & assist problem solving and Other additional 30-day Reassessments:: Progressing Reassessment Notes & Comments:: pt encouraged to take his meds Tobacco Use Tobacco Use: Non-smoker Hypertension Hypertension Diagnosis:: Hypertension ICD-10 I10 Resting Blood Pressure:: 124/70 [place] [employer] Hypertension Guidelines Peak Exercise Blood Pressure:: 150/70 Outcomes/Goals: Able to verbalize/achieve optimal blood pressure <130/80, Incorporates diet changes & exercise for blood pressure control by DC and Other additional outcomes/goals Interventions/plan: Instruct on optimal blood pressure, hypertension & medications, Instruct on effects of sodium, alcohol, stress, exercise &hypertension and Other additional plan/interventions 30 day Reassessments:: Progressing Reassessment Notes & Comments:: pt encouraged to take his meds Tobacco Cessation Referral Smoking Cessation Referral:: No Individual Education/Counseling:: No Education Schedule Given:: Yes Psychosocial - 30-Day Assess VIsit Date of Eval: 05/31/23 Session #:: 9 History of previous Mental disease:: No Target Goals Target Goals Psychosocial - 60-Day Assess Target Goals Target Goals Psychosocial - 90-Day Assess Target Goals Target Goals Psychosocial - Final Assessmen Target Goals Target Goals Nutrition - 90-Day Assessment Weight Mgt (Other Care) Height: 5 ft 10 in Weight:: 285 lb 8 oz BMI: 40.9 Nutrition - Final Assessment Weight Mgt (Other Care) Height: 5 ft 10 in Weight:: 285 lb 8 oz BMI: 40.9
[2023-05-31 08:13] VITALS: BP 124/70; BMI 40.9
== END 2023-06-23 23:59 ==
LOC: CR 10:15
PROVIDERS: PCP Family Medicine; Referring Provider Internal Medicine Cardiovascular Disease; Visit Provider Internal Medicine Cardiovascular Disease
DX: I25.10 Atherosclerotic heart disease of native coronary artery without angina pectoris (principal); I45.2 Bifascicular block; Z95.5 Presence of coronary angioplasty implant and graft; Z95.1 Presence of aortocoronary bypass graft
CPT/HCPCS: 93798; 97802

== ENCOUNTER → 2023-07-15 | Outpatient (CLI) | payer MEDICARE, OTHER, SELFPAY ==
[2023-05-01 14:02] VITALS: BMI 40.4
[2023-07-01 08:08] VITALS: BMI 41.2
[2023-07-15 12:19] LABS: Absolute Lymphocyte Count 1.84 X10^3/uL (0.83-4.51); Absolute Neutrophil Count 5.3 X10^3/uL (2.0-7.7); Basophil# 0.04 X10^3/uL; Basophil% 0.5 % (0-1); Eosinophil# 0.24 X10^3/uL; Eosinophils% 2.9 % (0-5); Hematocrit 43.8 % (40-54); Hemoglobin 13.1 g/dL (13.0-16.5); Lymphocyte # 1.84 X10^3/ul (0.83-4.51); Lymphocyte % 22.5 % (19-41); Mean Corp Hgb Conc 29.9 g/dL (32-36); Mean Corpuscular Hgb 26.6 pg (27.0-32.0); Mean Corpuscular Volume 88.8 fL (80-94); Mean Platelet Vol. 10.5 fl (6.2-12.0); Monocyte# 0.71 X10^3/uL; Monocyte% 8.7 % (0-10); NRBC Flagged by Analyzer 0 % (0-5); Neutrophil # 5.34 X10^3/uL (2.7-7.7); Neutrophil % 65.3 % (47-70); Platelet Count 202 K/mm3 (150-450); RBC Distribution Width CV 14.2 % (11.6-14.6); RBC Distribution Width SD 45.6 fl (35.1-43.9); Red Blood Count 4.93 M/mm3 (4.6-6.2); White Blood Count 8.2 K/mm3 (4.4-11.0)
[2023-07-15 12:52] LABS: Vitamin D,25 Hydroxy 53.7 ng/mL
[2023-07-15 13:14] LABS: ALB/GLOB Ratio 0.9 RATIO (0.9-2.4); AST(SGOT) 28 U/L (15-37); Alanine Aminotransfer ALT/SGPT 24 U/L (16-61); Albumin, Serum 3.3 g/dL (3.2-5.0); Alkaline Phosphatase 86 U/L (45-117); Anion Gap 5 (5-15); BUN 15 mg/dL (7-18); BUN/Creat Ratio 12.2 RATIO (10-20); Calcium,Total 9.1 mg/dL (8.5-10.1); Chloride 107 mmol/L (98-107); Cholesterol 116 mg/dL (200); Creatinine, Serum 1.23 mg/dL (0.70-1.30); EST Glomerular Filtration Rate 62 mL/min (>60); Est Glom Filt Rate - Afr Amer 75 mL/min (>60); Globulin 3.7 g/dL (2.2-4.2); Glucose 149 mg/dL (74-106); High Density Lipoprotein 35 mg/dL; Potassium 4.6 mmol/L (3.5-5.1); Sodium Level 139 mmol/L (136-145); Triglycerides 176 mg/dL; Very Low Density Lipoprotein 35 mg/dL (5-40)
[2023-07-15 13:39] LABS: Hemoglobin A1c 6.6 % (3.8-5.6)
== END | disposition home or self-care (01) ==
LOC: BFHLAB 08:05
PROVIDERS: PCP Family Medicine; Visit Provider Family Medicine
DX: E55.9 Vitamin D deficiency, unspecified (principal); E11.9 Type 2 diabetes mellitus without complications; I10 Essential (primary) hypertension; I25.10 Atherosclerotic heart disease of native coronary artery without angina pectoris
CPT/HCPCS: 36415; 80053; 80061; 82306; 83036; 85025

== ENCOUNTER 2023-07-24 10:15 | Outpatient (RCR) | payer MEDICARE, OTHER, SELFPAY ==
[2023-05-31 08:13] VITALS: BMI 40.9
[2023-06-24 00:38] VITALS: BP 124/70
--- NOTE | 2023-07-01 08:00 | PCM.CR.ITP ---
Nutrition - Initial Assessment Weight Mgt (Other Care) Height: 5 ft 10 in Weight:: 287 lb 8 oz BMI: 41.2 Psychosocial - Initial Assess Target Goals Target Goals Patient Health Questionnaire PHQ-9 Screening 60-Day Re-eval Assessment: 1. Little interest or pleasure in doing things: Not at all 2. Feeling down, depressed, or hopeless: Not at all 3. Trouble falling or staying asleep, or sleeping too much: Not at all 4. Feeling tired or having little energy: Not at all 5. Poor appetite or overeating: Not at all 6. Feeling bad about yourself -- or that you are a failure or have let yourself or your family down: Not at all 7. Trouble concentrating on things, such as reading the newspaper or watching television: Not at all 8. Moving or speaking so slowly that other people could have noticed. Or the opposite - being so fidgety or restless that you have been moving around a lot more than usual: Not at all 9. Thoughts that you would be better off , or of hurting yourself in some way: Not at all How difficult have these problems made it for you to do your work, take care of things at home, or get along with other people?: Not difficult at all Total Score: 0 Self-Efficacy 6-Item Scale 60-Day Re-eval Assessment: We would like to know how confident you are in doing certain activities. Please select your confidence level for: Fatigue Select Number: 5 Physical Discomfort or Pain Select Number: 5 Emotional Distress Select Number: 5 Other Symptoms or Health Problems Select Number: 5 Different Tasks and Activities Select Number: 5 Medication Select Number: 5 Total Score:: 5 Nutrition Survey Nutrition Survey Instructions Scoring Instructions Exercise - 60-day Assessment Visit Date of Eval: 07/01/23 Session #:: 19 Physician Prescribed Exercise Modalities: Treadmill, NuStep and Lateral Director Of Research Frequency: 3x/week for 12 weeks [36 sessions] Intensity: 60-80% of age predicted maximum heart rate reserve Duration: 30 - 45 minutes Current METSs:: 5 Target Heart Rate:: 113-128 Current RPE:: 12-13.5 Maximum Excercise HR:: 119 Resting Blood Pressure: 122/64 Maximum Exercise Blood Pressure: 162/64 EKG Type: SR to ST w/RBBB with rare PVC and PAC Outcomes & Goals Goals:: Verbalizes understanding of THR, RPE & goal METS by session 6, Documents in home exercise log/reports 30 min aerobic 5 day/wk by DC, Demonstrates accurate pulse taking by DC and Other additional outcome/goals: see below Intervention & Plan Exercise Program Goals: Instruct on personal THR & RPE, Instruct on MET level & personal MET goal, Show patient to take own pulse /validate performance until accurate, Instruct on home exercise and Other additional plan/int 30-day Reassessments 30 day Reassessments:: Met Physical Activity Home Exercise Physical Activity - Home Exercise: Safe Exercise, Warm-up, Self-monitoring, Cool-Down, Home Exercise > 30 min Daily and Sitting Time <3 hours/daily Outcomes & Goals Outcomes/Goals: Demonstrates correct Warm-up/exercise Cool-Down (S3) if = 2.5 METs, Verbalizes symptoms of exercise intolerance by Session 3 (S3), Demonstrate safe equipment use (S3) & follows exercise prescrition (6) and Other: See below Intervention & Plan Plan/Intervention: Instruct warm-up & cool-down if exercising at > 2 METs, Instruct on symptoms of exercise intolerance & actions to take, Instruct & monitor on saf, Assess intial functional capacity & safety risk and Other See below 30-day Reassessments 30 day Reassessments:: Met Nutrition - 30-Day Assessment Weight Mgt (Other Care) Height: 5 ft 10 in Weight:: 287 lb 8 oz BMI: 41.2 Nutrition - 60-Day Assessment Program Goals Nutrition Program Goals Patient has diagnosis of Hyperlipidemia (ICD E78)?: Yes Visit Date of Eval: 07/01/23 Session #:: 19 Cholesterol/Lipids (Other Core Measures) Determine presence & major risk factors that modify LDL goal: Cigarette smoking, Hypertension or hypertensive medication, Low HDL cholesterol <40 mg/dL*, Family history of premature CHD in Male < 55 years: female <65 yearsFa and Age men > 45 years; women >/= 55 years Outcomes/Goals: Pt IDs own risk factors & lifestyle modifications by Session 10, Verbalizes symptoms of angina & response by session 3., Pt independently manages and Other Additional Outcomes/Goals: Intervention/Plan: Advocate for lipid panel cholesterol medication if applicable, Instruct on personal lipid levels & lipid goals/NCEP guidelines, Instruct on cholesterol and Other additional plan/int 30-day Reassessments:: Met Diabetes (Other Core Measures) Diabetes Type: Diagnosis Type II ICD-10 E11 Insulin dependent injection/pump?: Yes Non-Insulin Dependent?: No Do you monitor your blood sugar at home?: Yes Referral to Diabetic Clinic:: Yes Outcomes/Goals:: Able to state symptoms of, Able to state, Able to state and Other additional Intervention/Plan:: Instruct on, Refer to, Instruct on and Other 30-day Reassessments:: Met Weight Mgt (Other Care) Height: 5 ft 10 in Weight:: 287 lb 8 oz BMI: 41.2 Diagnosis Overweight/Obesity BMI> 30% ICD-10 E66: Yes Diagnosis High BMI/Morbid Obesity BMI> 35% ICD-10 Z68: Yes Outcomes/Goals: Pt sets, maintains & shows weight loss goal & trend during rehab and Other additional outcomes/goals Intervention/Plan: Instruct on ideal BMI & set weight loss goal w/patient, Assist pt to ID & incorporate diet changes for weight loss by S9, Refer to Structured Weight Loss program as appropriate, Encourage goal of using 250-300dcal per session for weight loss and Other additional plan/interventions 30 day Reassessments:: Progressing Reassessment Notes & Comments:: 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 with tunnel miner Healthy Eating Habits Will attend diet classes:: Yes Outcomes/Goals:: Consume diet rich in vegs,fruits,whole grain/high fiber,fish,lean meat, Limit sat/trans fats,cholesterol & added salts & sugars and Other additional outcome/goals: Intervention/Plan:: Assess current eating habits and Other Additional plan/interventions 30-day Reassessments:: Met Education Gave educational materials for:: Signs & symptoms of hypoglycemia, Signs & symptoms of hyperglycemia, Relate diabetes to coronary artery disease and Healthy eating Core - 60-Day Assessment Visit Date of Eval: 07/01/23 Session #:: 19 Medication Compliance Preventative Medication(s):: Aspirin, Statin/lipid and Beta sherwin H/O mental health issues: depression, anxiety, or addiction?: No Doesn?t believe in the benefits of treatment?: No Believes medications are unnecessary or harmful?: No Has a concern about medication side effects?: No Expresses concern over the cost of medications?: No Outcomes/Goals: Verbalizes medications,desired effect & common side effects @ DC, Pt self-reports following medication regimen, Keeps card in wallet w/medications listed by DC and Other additional outcome/goals: Interventions/plans: Instruct on medication effects & side effects, Review medication list w/patient every two weeks, Instruct importance of taking meds as ordered & assist problem solving and Other additional 30-day Reassessments:: Met Tobacco Use Tobacco Use: Non-smoker Hypertension Hypertension Diagnosis:: Hypertension ICD-10 I10 Resting Blood Pressure:: 122/64 [place] [employer] Hypertension Guidelines Peak Exercise Blood Pressure:: 162/64 Outcomes/Goals: Able to verbalize/achieve optimal blood pressure <130/80, Incorporates diet changes & exercise for blood pressure control by DC and Other additional outcomes/goals Interventions/plan: Instruct on optimal blood pressure, hypertension & medications, Instruct on effects of sodium, alcohol, stress, exercise &hypertension and Other additional plan/interventions 30 day Reassessments:: Met Tobacco Cessation Referral Smoking Cessation Referral:: No Individual Education/Counseling:: No Education Schedule Given:: Yes Psychosocial - 30-Day Assess Target Goals Target Goals Outcomes/Goals: See list Psychosocial Outcomes/Goals:: ID's personal stressors & 2 strategies to manage stress by discharge and Other Additional outcome/goals: Psychosocial - 60-Day Assess VIsit Date of Eval: 07/01/23 History of previous Mental disease:: No Target Goals Target Goals Outcomes/Goals: See list Psychosocial Outcomes/Goals:: ID's personal stressors & 2 strategies to manage stress by discharge and Other Additional outcome/goals: Intervention/Plan: See List Interventions/Plan:: Assess stressors,coping strategies & signs of derpression on admission, Instruct/assist pt to develop coping & personal stress Mgt strategies, Refer to Behavioral Health if appropriate, Refer to Physician if appropriate, Instruct patient to recognize signs & symptoms of depression, Instruct patient to recog and Other additional plan/intervention 30-day Reassessments: 30 day Reassessments:: Met Psychosocial - 90-Day Assess Target Goals Target Goals Psychosocial - Final Assessmen Target Goals Target Goals Nutrition - 90-Day Assessment Weight Mgt (Other Care) Height: 5 ft 10 in Weight:: 287 lb 8 oz BMI: 41.2 Nutrition - Final Assessment Weight Mgt (Other Care) Height: 5 ft 10 in Weight:: 287 lb 8 oz BMI: 41.2
[2023-07-01 08:08] VITALS: BP 122/64; BMI 41.2
== END 2023-07-24 23:59 ==
LOC: CR 10:15
PROVIDERS: PCP Family Medicine; Referring Provider Internal Medicine Cardiovascular Disease; Visit Provider Internal Medicine Cardiovascular Disease
DX: I25.10 Atherosclerotic heart disease of native coronary artery without angina pectoris (principal); I45.2 Bifascicular block; Z95.5 Presence of coronary angioplasty implant and graft; Z95.1 Presence of aortocoronary bypass graft
CPT/HCPCS: 93798

== ENCOUNTER 2023-08-12 10:15 | Outpatient (RCR) | payer MEDICARE, OTHER, SELFPAY ==
[2023-07-01 08:08] VITALS: BMI 41.2
[2023-07-25 00:53] VITALS: BP 122/64; BP 124/70
--- NOTE | 2023-07-31 08:29 | PCM.CR.ITP ---
Nutrition - Initial Assessment Weight Mgt (Other Care) Height: 5 ft 10 in Weight:: 293 lb BMI: 42.0 Psychosocial - Initial Assess Target Goals Target Goals Patient Health Questionnaire PHQ-9 Screening 90-Day Re-eval Assessment: 1. Little interest or pleasure in doing things: Not at all 2. Feeling down, depressed, or hopeless: Not at all 3. Trouble falling or staying asleep, or sleeping too much: Not at all 4. Feeling tired or having little energy: Not at all 5. Poor appetite or overeating: Not at all 6. Feeling bad about yourself -- or that you are a failure or have let yourself or your family down: Not at all 7. Trouble concentrating on things, such as reading the newspaper or watching television: Not at all 8. Moving or speaking so slowly that other people could have noticed. Or the opposite - being so fidgety or restless that you have been moving around a lot more than usual: Not at all 9. Thoughts that you would be better off , or of hurting yourself in some way: Not at all How difficult have these problems made it for you to do your work, take care of things at home, or get along with other people?: Not difficult at all Total Score: 0 Self-Efficacy 6-Item Scale 90-Day Re-eval Assessment: We would like to know how confident you are in doing certain activities. Please select your confidence level for: Fatigue Select Number: 5 Physical Discomfort or Pain Select Number: 5 Emotional Distress Select Number: 5 Other Symptoms or Health Problems Select Number: 5 Different Tasks and Activities Select Number: 5 Medication Select Number: 5 Total Score:: 5 Nutrition Survey Nutrition Survey Instructions Scoring Instructions Exercise - 90-day Assessment Visit Date of Eval: 07/31/23 Session #:: 32 Physician Prescribed Exercise Modalities: Treadmill, NuStep and Lateral Wet Machine Operator Frequency: 3x/week for 12 weeks [36 sessions] Intensity: 60-80% of age predicted maximum heart rate reserve Duration: 30 - 45 minutes Current METSs:: 5 Target Heart Rate:: 113-128 Current RPE:: 12 Maximum Excercise HR:: 135 Resting Blood Pressure: 160/58 Maximum Exercise Blood Pressure: 168/64 EKG Type: SR to ST w/RBBB with occas PVC and PAC Outcomes & Goals Goals:: Verbalizes understanding of THR, RPE & goal METS by session 6, Documents in home exercise log/reports 30 min aerobic 5 day/wk by DC, Demonstrates accurate pulse taking by DC and Other additional outcome/goals: see below Intervention & Plan Exercise Program Goals: Instruct on personal THR & RPE, Instruct on MET level & personal MET goal, Show patient to take own pulse /validate performance until accurate, Instruct on home exercise and Other additional plan/int 30-day Reassessments 30 day Reassessments:: Met Physical Activity Home Exercise Physical Activity - Home Exercise: Safe Exercise, Warm-up, Self-monitoring, Cool-Down, Home Exercise > 30 min Daily and Sitting Time <3 hours/daily Outcomes & Goals Outcomes/Goals: Demonstrates correct Warm-up/exercise Cool-Down (S3) if = 2.5 METs, Verbalizes symptoms of exercise intolerance by Session 3 (S3), Demonstrate safe equipment use (S3) & follows exercise prescrition (6) and Other: See below Intervention & Plan Plan/Intervention: Instruct warm-up & cool-down if exercising at > 2 METs, Instruct on symptoms of exercise intolerance & actions to take, Instruct & monitor on saf, Assess intial functional capacity & safety risk and Other See below 30-day Reassessments 30 day Reassessments:: Met Nutrition - 30-Day Assessment Weight Mgt (Other Care) Height: 5 ft 10 in Weight:: 293 lb BMI: 42.0 Nutrition - 60-Day Assessment Weight Mgt (Other Care) Height: 5 ft 10 in Weight:: 293 lb BMI: 42.0 Core - 90 Day Assessment Visit Date of Eval: 07/31/23 Session #:: 32 Medication Compliance Preventative Medication(s):: Aspirin, Statin/lipid and Beta sherwin H/O mental health issues: depression, anxiety, or addiction?: No Doesn?t believe in the benefits of treatment?: No Believes medications are unnecessary or harmful?: No Has a concern about medication side effects?: No Expresses concern over the cost of medications?: No Outcomes/Goals: Verbalizes medications,desired effect & common side effects @ DC, Pt self-reports following medication regimen, Keeps card in wallet w/medications listed by DC and Other additional outcome/goals: Interventions/plans: Instruct on medication effects & side effects, Review medication list w/patient every two weeks, Instruct importance of taking meds as ordered & assist problem solving and Other additional 30-day Reassessments:: Met Tobacco Use Tobacco Use: Non-smoker Hypertension Hypertension Diagnosis:: Hypertension ICD-10 I10 Resting Blood Pressure:: 160/58 [place] [employer] Hypertension Guidelines Peak Exercise Blood Pressure:: 168/64 Outcomes/Goals: Able to verbalize/achieve optimal blood pressure <130/80, Incorporates diet changes & exercise for blood pressure control by DC and Other additional outcomes/goals Interventions/plan: Instruct on optimal blood pressure, hypertension & medications, Instruct on effects of sodium, alcohol, stress, exercise &hypertension and Other additional plan/interventions 30 day Reassessments:: Met Tobacco Cessation Referral Smoking Cessation Referral:: No Individual Education/Counseling:: No Education Schedule Given:: Yes Psychosocial - 30-Day Assess Target Goals Target Goals Psychosocial - 60-Day Assess Target Goals Target Goals Psychosocial - 90-Day Assess VIsit Date of Eval: 07/31/23 Session #:: 32 History of previous Mental disease:: No Target Goals Target Goals Outcomes/Goals: See list Psychosocial Outcomes/Goals:: ID's personal stressors & 2 strategies to manage stress by discharge and Other Additional outcome/goals: Intervention/Plan: See List Interventions/Plan:: Assess stressors,coping strategies & signs of derpression on admission, Instruct/assist pt to develop coping & personal stress Mgt strategies, Refer to Behavioral Health if appropriate, Refer to Physician if appropriate, Instruct patient to recognize signs & symptoms of depression, Instruct patient to recog and Other additional plan/intervention 30-day Reassessments: 30 day Reassessments:: Met Psychosocial - Final Assessmen Target Goals Target Goals Nutrition - 90-Day Assessment Program Goals Nutrition Program Goals Patient has diagnosis of Hyperlipidemia (ICD E78)?: Yes Visit Date of Eval: 07/31/23 Session #:: 32 Cholesterol/Lipids (Other Core Measures) Determine presence & major risk factors that modify LDL goal: Cigarette smoking, Hypertension or hypertensive medication, Low HDL cholesterol <40 mg/dL*, Family history of premature CHD in Male < 55 years: female <65 yearsFa and Age men > 45 years; women >/= 55 years Outcomes/Goals: Pt IDs own risk factors & lifestyle modifications by Session 10, Verbalizes symptoms of angina & response by session 3., Pt independently manages and Other Additional Outcomes/Goals: Intervention/Plan: Advocate for lipid panel cholesterol medication if applicable, Instruct on personal lipid levels & lipid goals/NCEP guidelines, Instruct on cholesterol and Other additional plan/int Referral to dietitian:: Yes 30-day Reassessments:: Met Reassessment Notes & Comments:: pt met with dietition Diabetes (Other Core Measures) Diabetes Type: Diagnosis Type II ICD-10 E11 Insulin dependent injection/pump?: Yes Non-Insulin Dependent?: No Do you monitor your blood sugar at home?: Yes Referral to Diabetic Clinic:: Yes Outcomes/Goals:: Able to state symptoms of, Able to state, Able to state and Other additional Intervention/Plan:: Instruct on, Refer to, Instruct on and Other 30-day Reassessments:: Met Weight Mgt (Other Care) Height: 5 ft 10 in Weight:: 293 lb BMI: 42.0 Diagnosis Overweight/Obesity BMI> 30% ICD-10 E66: Yes Diagnosis High BMI/Morbid Obesity BMI> 35% ICD-10 Z68: Yes Outcomes/Goals: Pt sets, maintains & shows weight loss goal & trend during rehab and Other additional outcomes/goals Intervention/Plan: Instruct on ideal BMI & set weight loss goal w/patient, Assist pt to ID & incorporate diet changes for weight loss by S9, Refer to Structured Weight Loss program as appropriate, Encourage goal of using 250-300dcal per session for weight loss and Other additional plan/interventions 30 day Reassessments:: Progressing Reassessment Notes & Comments:: pt met with dietary Healthy Eating Habits Will attend diet classes:: Yes Outcomes/Goals:: Consume diet rich in vegs,fruits,whole grain/high fiber,fish,lean meat, Limit sat/trans fats,cholesterol & added salts & sugars and Other additional outcome/goals: Intervention/Plan:: Assess current eating habits and Other Additional plan/interventions 30-day Reassessments:: Met Education Gave educational materials for:: Signs & symptoms of hypoglycemia, Signs & symptoms of hyperglycemia, Relate diabetes to coronary artery disease and Healthy eating Nutrition - Final Assessment Weight Mgt (Other Care) Height: 5 ft 10 in Weight:: 293 lb BMI: 42.0
[2023-07-31 08:38] VITALS: BP 160/58; BMI 42.0
== END 2023-08-22 23:59 ==
LOC: CR 10:15
PROVIDERS: PCP Family Medicine; Referring Provider Internal Medicine Cardiovascular Disease; Visit Provider Internal Medicine Cardiovascular Disease
DX: I25.10 Atherosclerotic heart disease of native coronary artery without angina pectoris (principal); I45.2 Bifascicular block; Z95.5 Presence of coronary angioplasty implant and graft; Z95.1 Presence of aortocoronary bypass graft
CPT/HCPCS: 93798

== ENCOUNTER 2023-10-17 17:30 | Outpatient (RCR) | payer SELFPAY ==
[2023-07-31 08:38] VITALS: BMI 42.0
== END 2023-10-22 23:59 ==
LOC: NS 17:30
PROVIDERS: PCP Family Medicine
DX: Z71.3 Dietary counseling and surveillance (principal)

== ENCOUNTER → 2024-04-07 | Outpatient (CLI) | payer SELFPAY ==
[2023-07-31 08:38] VITALS: BMI 42.0
[2024-04-07 13:02] LABS: Absolute Lymphocyte Count 1.27 X10^3/uL (0.83-4.51); Absolute Neutrophil Count 6.1 X10^3/uL (2.0-7.7); Basophil# 0.04 X10^3/uL; Basophil% 0.5 % (0-1); Eosinophil# 0.21 X10^3/uL; Eosinophils% 2.5 % (0-5); Hematocrit 45.8 % (40-54); Hemoglobin 14.3 g/dL (13.0-16.5); Lymphocyte # 1.27 X10^3/ul (0.83-4.51); Lymphocyte % 15.4 % (19-41); Mean Corp Hgb Conc 31.2 g/dL (32-36); Mean Corpuscular Hgb 28.7 pg (27.0-32.0); Mean Corpuscular Volume 91.8 fL (80-94); Mean Platelet Vol. 10.4 fl (6.2-12.0); Monocyte# 0.59 X10^3/uL; Monocyte% 7.1 % (0-10); NRBC Flagged by Analyzer 0 % (0-5); Neutrophil # 6.13 X10^3/uL (2.7-7.7); Neutrophil % 74.1 % (47-70); Platelet Count 218 K/mm3 (150-450); RBC Distribution Width CV 13.2 % (11.6-14.6); RBC Distribution Width SD 44.6 fl (35.1-43.9); Red Blood Count 4.99 M/mm3 (4.6-6.2); White Blood Count 8.3 K/mm3 (4.4-11.0)
[2024-04-07 13:22] LABS: ALB/GLOB Ratio 0.9 RATIO (0.9-2.4); AST(SGOT) 20 U/L (15-37); Alanine Aminotransfer ALT/SGPT 27 U/L (16-61); Albumin, Serum 3.3 g/dL (3.2-5.0); Alkaline Phosphatase 87 U/L (45-117); Anion Gap 4 (5-15); BUN 14 mg/dL (7-18); BUN/Creat Ratio 10.7 RATIO (10-20); Calcium,Total 8.8 mg/dL (8.5-10.1); Chloride 106 mmol/L (98-107); Cholesterol 118 mg/dL (200); Creatinine, Serum 1.31 mg/dL (0.70-1.30); EST Glomerular Filtration Rate 57 mL/min (>60); Est Glom Filt Rate - Afr Amer 70 mL/min (>60); Globulin 3.5 g/dL (2.2-4.2); Glucose 166 mg/dL (74-106); High Density Lipoprotein 36 mg/dL; PSA,Total - Annual Screen 0.54 ng/mL (0.00-4.00); Potassium 4.7 mmol/L (3.5-5.1); Protein, Total 6.8 g/dL (6.4-8.2); Sodium Level 138 mmol/L (136-145); Triglycerides 214 mg/dL; Very Low Density Lipoprotein 43 mg/dL (5-40)
[2024-04-07 13:37] LABS: Microalbumin:Creatinine Ratio 11.2 mg/g CRE (<30 mg/g CRE)
== END | disposition home or self-care (01) ==
LOC: BFHLAB 08:52
PROVIDERS: PCP Family Medicine; Referring Provider Family Medicine; Visit Provider Family Medicine
DX: E11.9 Type 2 diabetes mellitus without complications (principal); I25.10 Atherosclerotic heart disease of native coronary artery without angina pectoris; I10 Essential (primary) hypertension; Z12.5 Encounter for screening for malignant neoplasm of prostate
CPT/HCPCS: 36415; 80053; 80061; 82043; 82570; 84153; 85025; G0103

== ENCOUNTER → 2024-08-21 | Outpatient (CLI) | payer OTHER, MEDICARE, SELFPAY ==
[2023-07-31 08:38] VITALS: BMI 42.0
[2024-08-21 12:39] LABS: Cholesterol 120 mg/dL (<=200); High Density Lipoprotein 33 mg/dL; Low Density Lipoprotein Calc. 45 mg/dL; Triglycerides 207 mg/dL; Very Low Density Lipoprotein 41 mg/dL (5-40)
[2024-08-21 12:44] LABS: Anion Gap 11 (5-15); BUN 18 mg/dL (4-19); BUN/Creat Ratio 15.6 RATIO (10-20); Calcium 9.1 mg/dL (7.6-11.0); Carbon Dioxide 23.3 mmol/L (22.0-29.0); Chloride 104 mmol/L (96-108); Creatinine, Serum 1.17 mg/dL (0.70-1.20); EST Glomerular Filtration Rate 67 (>60); Glucose 160 mg/dL (70-99); Potassium 5.2 mmol/L (3.3-5.1); Sodium Level 138 mmol/L (133-145)
== END | disposition home or self-care (01) ==
LOC: LAB 06:50
PROVIDERS: PCP Family Medicine; Referring Provider Family Medicine; Visit Provider Family Medicine
DX: I10 Essential (primary) hypertension (principal); I25.10 Atherosclerotic heart disease of native coronary artery without angina pectoris
CPT/HCPCS: 36415; 80048; 80061

== ENCOUNTER → 2024-08-26 | Outpatient (CLI) | payer OTHER, MEDICARE, SELFPAY ==
[2023-07-31 08:38] VITALS: BMI 42.0
--- NOTE | 2024-08-26 10:41 | RAD_ITS ---
PROCEDURE: L/S SPINE MIN 4 VIEWS REASON FOR EXAM: Low back pain, unspecified TECHNIQUE: 6 views of the lumbar spine COMPARISON: None. FINDINGS: Normal vertebral heights. No evidence of fracture. Advanced multilevel disc space narrowing with endplate osteophytes. Moderate facet arthropathy. Normal alignment. No spondylolisthesis. RAD/L/S Spine Min 4 Views IMPRESSION: Moderate degenerative changes in the lumbar spine with no acute osseous abnorma lity. Reading Location: [facility]
[2024-08-26 11:38] LABS: Absolute Lymphocyte Count 1.69 X10^3/uL (0.83-4.51); Absolute Neutrophil Count 6.2 X10^3/uL (2.0-7.7); Basophil# 0.05 X10^3/uL; Basophil% 0.6 % (0-1); Eosinophil# 0.23 X10^3/uL; Eosinophils% 2.6 % (0-5); Hematocrit 46.1 % (40-54); Lymphocyte # 1.69 X10^3/ul (0.83-4.51); Lymphocyte % 19.1 % (19-41); Mean Corp Hgb Conc 32.5 g/dL (32-36); Mean Corpuscular Volume 89.2 fL (80-94); Mean Platelet Vol. 9.7 fl (6.2-12.0); Monocyte# 0.64 X10^3/uL; Monocyte% 7.2 % (0-10); NRBC Flagged by Analyzer 0 % (0-5); Neutrophil % 69.9 % (47-70); Platelet Count 231 K/mm3 (150-450); RBC Distribution Width SD 42.5 fl (35.1-43.9); Red Blood Count 5.17 M/mm3 (4.6-6.2); White Blood Count 8.9 K/mm3 (4.4-11.0)
[2024-08-27 08:08] LABS: Rubeola IgG Ab > 300.0 AU/mL (Immune >16.4)
== END | disposition home or self-care (01) ==
PROVIDERS: PCP Family Medicine; Referring Provider Family Medicine; Visit Provider Family Medicine
DX: Z01.818 Encounter for other preprocedural examination (principal); Z71.85 Encounter for immunization safety counseling; M54.50 Low back pain, unspecified
CPT/HCPCS: 36415; 72110; 85025; 86765

== ENCOUNTER → 2024-09-23 | Outpatient (CLI) | payer MEDICARE, OTHER, SELFPAY ==
[2023-07-31 08:38] VITALS: BMI 42.0
[2024-09-23 16:51] LABS: Cholesterol 131 mg/dL (<=200); High Density Lipoprotein 39 mg/dL; Low Density Lipoprotein Calc. 54 mg/dL; Triglycerides 194 mg/dL; Very Low Density Lipoprotein 39 mg/dL (5-40); cholesterol:hdl ratio screen 3.39
== END | disposition home or self-care (01) ==
PROVIDERS: PCP Family Medicine; Visit Provider Family Medicine
DX: E78.5 Hyperlipidemia, unspecified (principal)
CPT/HCPCS: 36415; 80061

== ENCOUNTER → 2024-11-03 | Outpatient (CLI) | payer MEDICARE, OTHER, SELFPAY ==
[2023-07-31 08:38] VITALS: BMI 42.0
--- NOTE | 2024-11-03 08:10 | US_ITS ---
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 LEFT testicle: 5.3 cm x 3.5 cm x 2.7 cm Left epididymis: 0.8 cm by 1 cm x 1.2 cm Other findings: No hydrocele or large varicocele. US/Testicular with Arterial Flow IMPRESSION: Normal left scrotal ultrasound. The patient is status post right orchiectomy. Reading Location: [id number]
== END | disposition home or self-care (01) ==
LOC: US 08:09
PROVIDERS: PCP Family Medicine; Referring Provider Family Medicine; Visit Provider Family Medicine
DX: N50.82 Scrotal pain (principal)
CPT/HCPCS: 76870; 93976

== ENCOUNTER → 2025-05-29 | Outpatient (CLI) | payer MEDICARE, OTHER, SELFPAY ==
[2023-07-31 08:38] VITALS: BMI 42.0
--- OUTSIDE RECORDS SUMMARY | 2025-05-29 07:52 | XMS RPT_ITS | CCD ---
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 Temo Rodriguez Primary Care Provider [phone] Dr. Temo Rodriguez Referring Provider Roof DIRECTOR OF ADVERTISING SALES, DIRECTOR OF ADVERTISING SALES-C Richardson H Attending Provider Roof DIRECTOR OF ADVERTISING SALES, DIRECTOR OF ADVERTISING SALES-C Richardson H Referring Provider Roof DIRECTOR OF ADVERTISING SALES, DIRECTOR OF ADVERTISING SALES-C Richardson H Other Provider Dr. Hadley Chilel Attending Provider [phone] Melita Armendariz Attending Provider [phone] Melita Armendariz Referring Provider [phone] Melita Armendariz Other Provider Temo Rodriguez A Primary Care Provider Temo Rodriguez Primary Care Provider Dr. Temo Rodriguez Primary Care Provider [phone] Dr. Temo Rodriguez Referring Provider Roof DIRECTOR OF ADVERTISING SALES, DIRECTOR OF ADVERTISING SALES-C Richardson H Attending Provider Roof DIRECTOR OF ADVERTISING SALES, DIRECTOR OF ADVERTISING SALES-C Richardson H Referring Provider Roof DIRECTOR OF ADVERTISING SALES, DIRECTOR OF ADVERTISING SALES-C Richardson H Other Provider Dr. Hadley Chilel Attending Provider [phone] Melita Armendariz Attending Provider Dr. Melita Armendariz Referring Provider Dr. Melita Armendariz Other Provider Dr. Temo Rodriguez Primary Care Provider [phone] Roof DIRECTOR OF ADVERTISING SALES, DIRECTOR OF ADVERTISING SALES-C Richardson Rivera Attending Provider Dr. Temo Rodriguez Referring Provider Dr. Temo Rodriguez Primary Care Provider [phone] Dr. Melita Armendariz Attending Provider Roof DIRECTOR OF ADVERTISING SALES, DIRECTOR OF ADVERTISING SALES-C Richardson Rivera Attending Provider AZIKEN, DONYA Attending Unavailable AZIKEN, DONYA Referring Unavailable TEMO RODRIGUEZ Primary Care Unavailable AZIKEN, DONYA Admitting Unavailable AZIKEN, DONYA Attending Unavailable MICHAEL, TEMO Primary Care Unavailable ZMEILI, WILLEM Consulting Unavailable NICOLE, FAUSTO Consulting Unavailable HALEY, JONATHAN Attending Unavailable MICHAEL, TEMO Primary Care Unavailable HALEY, JONATHAN Attending Unavailable MICHAEL, TEMO Primary Care Unavailable GISSELLE, SUGEY Referring Unavailable MICHAEL, TEMO Primary Care Unavailable AZIKEN, DONYA Attending Unavailable AZIKEN, DONYA Referring Unavailable MICHAEL, TEMO Primary Care Unavailable AZIKEN, DONYA Attending Unavailable TEMO RODRIGUEZ Primary Care Unavailable Dr. Temo Rodriguez Primary Care Provider [phone] Dr. Temo Rodriguez Primary Care Provider [phone] Dr. Temo Rodriguez Referring Provider Biju DIRECTOR OF ADVERTISING SALES, DIRECTOR OF ADVERTISING SALES-C Richardson Rivera Attending Provider NATASHA Peterson Attending Provider Dr. Temo Rodriguez Primary Care Provider [phone] Dr. Temo Rodriguez Referring Provider Roof DIRECTOR OF ADVERTISING SALES, DIRECTOR OF ADVERTISING SALES-C Richardson Rivera Attending Provider NATASHA Peterson Attending Provider Dr. Temo Rodriguez DO Primary Care Provider Dr. Temo Rodriguez DO Referring Provider Nicholas DIRECTOR OF ADVERTISING SALES-CGeovani Attending Provider Gabino Domínguez Attending Provider [phone] Temo Rodriguez DO Attending Provider [phone] Biju DIRECTOR OF ADVERTISING SALES-CRichardson Attending Provider Dr. Temo Rodriguez DO Primary Care Provider Dr. Temo Rodriguez DO Referring Provider [phone] Nicholas DIRECTOR OF ADVERTISING SALES-C, Geovani Attending Provider Dr. Temo Rodriguez DO Primary Care Physician [phone] Dr. Temo Rodriguez DO Referring Provider [phone] Nicholas DIRECTOR OF ADVERTISING SALES-C, Geovani Attending Physician Geovani Peterson Attending Unavailable Michael, Temo Referring Unavailable Michael, Temo Primary Care Unavailable Geovani Peterson Attending Unavailable Michael, Temo Referring Unavailable Michael, Temo Primary Care Unavailable Michael, Temo Primary Care Unavailable Gabino Domínguez Attending Unavailable Michael, Temo Referring Unavailable Geovani Peterson Attending Unavailable Michael, Temo Primary Care Unavailable Michael, Temo Referring Unavailable Michael, Temo Primary Care Unavailable Merlin Cruz Referring Unavailabl e Wartmann, Merlin Attending Unavailabl e Michael, Temo Primary Care Unavailable Michael, Temo Attending Unavailable Michael, Temo Referring Unavailable Michael, Temo Primary Care Unavailable Biju CHAVARRIA, Richardson Rivera Attending Unavailable Michael, Temo Referring Unavailable Michael, Temo Attending Unavailable Michael, Temo Referring Unavailable Michael, Temo Primary Care Unavailable Michael, Temo Attending Unavailable Michael, Temo Referring Unavailable Michael, Temo Primary Care Unavailable Michael, Temo Primary Care Unavailable Michael, Temo Attending Unavailable Michael, Temo Primary Care Unavailable Michael, Temo Attending Unavailable Michael, Temo Referring Unavailable Allergies Allergy Classification Reported Allergen(s) Allergy Type Date of Onset Reaction(s) Facility (20 sources) Amoxicillin Drug Allergy 2 Unknown [facility] (19 sources) atorvastatin Drug Allergy 2 Pain in joints [facility] (20 sources) Clavulanate Drug Allergy 2 Rash [facility] (20 sources) metFORMIN Drug Allergy 2 Diarrhea, Rash [facility] (19 sources) Pollen Allergy to substance 2 Other [facility] (13 sources) atorvastatin Drug Allergy 11-01-200 5 Other [facility] (13 sources) metFORMIN Drug Allergy 5 [facility] (13 sources) Pollen Propensity to adverse reactions 3 Cough [facility] (13 sources) Amoxicillin-Pot Clavulanate Drug Intolerance 5 [facility] (13 sources) Other Propensity to adverse reactions 0 Other [facility] (1 source) Amoxicillin Drug Allergy 5 [facility] (1 source) atorvastatin Drug Allergy 5 [facility] (1 source) Clavulanate Drug Allergy 5 [facility] (1 source) metFORMIN Drug Allergy 5 [facility] (1 source) Pollen Drug allergy (disorder) 5 [facility] Medications Current Medications Medication Drug Class(es) Dates Sig (Normalized) Sig (Original) acetaminophen 500 mg oral tablet (16 sources) Start: 04-18-2023 take 1 tablet by mouth every six hours as needed Acetaminophen (Tylenol Extra Strength) 500 mg tablet Active 500 mg PO EVERY 6 HOURS as needed April 18, 2023 12:00am Complies with drug therapy Start: 03-21-2023 End: 03-28-2023 take 1 tablet by mouth every eight hours 1,000 mg, Oral, Every 8 hours, First dose on Sophie 03/21/23 at 1230, [facility] On Unit Apoaequorin (Prevagen) 10 MG capsule (11 sources) Apoaequorin (Prevagen) 10 MG capsule aspirin 81 mg delayed release oral tablet (20 sources) Platelet Aggregation Inhibitor, Nonsteroidal Anti-inflammatory Drug Start: 3 take 1 tablet by mouth once daily Aspirin (Adult Aspirin Regimen) 81 mg tablet,delayed release (DR/EC) Active 81 mg PO daily April 18, 2023 10:08am Complies with drug therapy Start: 03-22-2023 End: 03-28-2024 aspirin 81 MG chewable table t Chew 1 tablet (81 mg) daily. 30 tablet 11 03/29/2023 03/28/2024 Active Start: 10-16-2017 End: 04-18-2023 Aspirin (Adult Aspirin Regim en) 81 mg tablet,delayed release (DR/EC) Discontinued 324 mg PO daily October 16, 2017 2:30pm April 18, 2023 10:11am Start: 06-06-2017 End: 10-16-2017 take 1 tablet by mouth once daily Aspirin (Adult Aspirin Regimen) 81 mg tablet,delayed release (DR/EC) Discontinued 81 mg PO daily June 06, 2017 1:00am October 16, 2017 2:33pm End: 03-28-2023 take 324 mg by mouth once daily aspirin 81 MG oral suspension Take 324 mg by mouth daily. 0 Active aspirin 81 MG or al suspension atenolol 50 mg oral tablet (20 sources) beta-Adrenergic Sherwin Start: 03-23-2023 End: 03-25-2023 take 25 mg by mouth once daily 25 mg, Oral, Daily, First dose on 03/23/23 at 1015 Start: 06-06-2017 End: 11-18-2024 take 1 tablet by mouth once daily Atenolol 50 mg table t Active 50 mg PO daily 90 3 November 18, 2024 1:15pm Complies with drug therapy icosapent ethyl 1000 mg oral capsule (7 sources) Start: 06-03-2024 End: 09-30-2024 Icosapent Ethyl (Vascepa) 1 gram capsule Active 2 g PO TWICE A DAY 360 1 September 30, 2024 9:18am High blood triglycerides Pure hyperglyceridemia Complies with drug therapy 3 ml insulin aspart, human 100 unt/ml pen injector (20 sources) Insulin Analog Start: 01-13-2025 Insulin Aspart U-100 (Novolog Flexpen U-100 Insulin) 100 unit/mL (3 mL) insulin pen Active 33 U SC THREE TIMES A DAY 90 January 13, 2025 11:57am Diabetes mellitus Type 2 diabetes mellitus without complications plus coverage Complies with drug therapy Start: 09-08-2024 End: 01-13-2025 Insulin Aspart U-100 (Novolo g Flexpen U-100 Insulin) 100 unit/mL (3 mL) insulin pen Discontinued 30 U SC THREE TIMES A DAY 90 0 September 08, 2024 1:02pm January 13, 2025 11:59am Diabetes mellitus Type 2 diabetes mellitus without complications plus coverage Start: 08-26-2024 End: 09-08-2024 Insulin Aspart U-100 (Novolo g Flexpen U-100 Insulin) 100 unit/mL (3 mL) insulin pen Discontinued 26 U SC THREE TIMES A DAY August 26, 2024 10:13am September 08, 2024 1:04pm Diabetes mellitus Type 2 diabetes mellitus without complications Start: 01-28-2024 End: 08-26-2024 Insulin Aspart U-100 (Novolo g Flexpen U-100 Insulin) 100 unit/mL (3 mL) insulin pen Discontinued 20 U SC THREE TIMES A DAY January 28, 2024 8:40am August 26, 2024 10:16am Diabetes mellitus Type 2 diabetes mellitus without complications Start: 10-17-2023 End: 01-28-2024 Insulin Aspart U-100 (Novolo g Flexpen U-100 Insulin) 100 unit/mL (3 mL) insulin pen Discontinued 35 U SC THREE TIMES A DAY 94.5 1 October 17, 2023 10:07am January 28, 2024 8:43am Diabetes mellitus Type 2 diabetes mellitus without complications Start: 04-18-2023 End: 10-17-2023 Insulin Aspart U-100 (Novolo g Flexpen U-100 Insulin) 100 unit/mL (3 mL) insulin pen Discontinued SC April 18, 2023 12:00am October 17, 2023 10:11am Start: 03-28-2023 insulin aspart (NovoLOG FLEXPEN) 100 UNIT/ML pen Inject 14 Units under the skin in the morning and 14 Units at noon and 14 Units in the evening. Inject with meals. 15 mL 2 03/28/2023 Active Start: 03-28-2023 3 ml insulin glargine 100 unt/ml pen injector (20 sources) Insulin Analog Start: 09-30-2024 End: 11-18-2024 Insulin Glargine (Lantus Solostar U-100 Insulin) 100 unit/mL (3 mL) insulin pen Active 50 U SC DAILY 45 November 18, 2024 9:35am Diabetes mellitus Type 2 diabetes mellitus with hyperglycemia skilled nursing (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 insulin Complies with drug therapy Start: 08-26-2024 End: 09-30-2024 Insulin Glargine (Lantus Siria ostar U-100 Insulin) 100 unit/mL (3 mL) insulin pen Discontinued 47 U SC DAILY August 26, 2024 10:12am September 30, 2024 8:55am Start: 01-28-2024 End: 08-26-2024 Insulin Glargine (Lantus Siria ostar U-100 Insulin) 100 unit/mL (3 mL) insulin pen Discontinued 55 U SC DAILY 45 1 June 11, 2024 10:39am August 26, 2024 10:16am Start: 08-13-2023 End: 01-28-2024 Insulin Glargine (Lantus Siria ostar U-100 Insulin) 100 unit/mL (3 mL) insulin pen Discontinued 60 U SC DAILY 60 2 August 13, 2023 8:57am January 28, 2024 8:43am Start: 08-08-2023 End: 08-13-2023 Insulin Glargine (Lantus Siria ostar U-100 Insulin) 100 unit/mL (3 mL) insulin pen Discontinued 75 U SC DAILY August 08, 2023 10:14am August 13, 2023 8:57am Start: 06-10-2023 End: 08-08-2023 Insulin Glargine (Lantus Siria ostar U-100 Insulin) 100 unit/mL (3 mL) insulin pen Discontinued 72 U SC DAILY June 10, 2023 5:30pm August 08, 2023 10:15am Start: 04-18-2023 End: 06-10-2023 Insulin Glargine (Lantus Siria ostar U-100 Insulin) 100 unit/mL (3 mL) insulin pen Discontinued 55 U SC DAILY April 18, 2023 10:05am June 10, 2023 5:34pm Start: 03-28-2023 End: 03-28-2023 insulin glargine (Lantus SoloStar) 100 UNIT/ML pen Inject 36 Units under the skin every morning. 0 03/28/2023 Active Start: 03-23-2023 End: 03-26-2023 inject 66 [IU] by subcutaneous injection once daily in the morning 66 Units, SubCUTAneous, Every morning, First dose (after last modification) on Sat03/24/23 at 0900 Start: 03-23-2023 End: 03-28-2023 inject 36 [IU] by subcutaneous injection once daily in the morning 36 Units, SubCUTAneous, Every morning, First dose (after last modification) on 03/26/23 at 0900 Start: 11-15-2017 End: 12-31-2017 Insulin Glargine 100 UNITS/M L insulin pen Discontinued 60 U SC AT BEDTIME November 15, 2017 12:00am December 31, 2017 9:35am Start: 11-15-2017 End: 12-31-2017 Insulin Glargine Discontinue d 60 UNITS SC AT BEDTIME November 15, 2017 12:00am December 31, 2017 9:35am Start: 06-06-2017 End: 04-18-2023 Insulin Glargine (Basaglar Kwikpen U-100 Insulin) 100 unit/mL (3 mL) insulin pen Discontinued 0 SC TWICE A DAY 135 3 January 30, 2018 8:40am September 11, 2018 12:53pm Type 2 diabetes mellitus without complications e11.9 70 units q am, 60 units q pm SC BID inject 70 [IU] by mckeon bcutaneous injection in the morning, then inject 50 [IU] by subcutaneous injection in the evening insulin glargine (Lantus SoloStar) 100 UNIT/ML pen Inject under the skin. 70 units in the morning, 50 units in the evening 0 Active insulin glargine (Lantus SoloStar) 100 UNIT/ML pen Multiple Vitamins-Minerals (Centrum Silver 50+Men) tablet (4 sources) Multiple Vitamin s-Minerals (Centrum Silver 50+Men) tablet Vh-Fqq-Filcs-W1-Ohodjee-Pqup in (Centrum Silver Men) 905-99-988-300 mcg tablet (2 sources) Start: 09-30-2024 Xr-Uyz-Eqxoc-V7-Nceawdy-Psfr in (Centrum Silver Men) 169-24-677-300 mcg tablet Active 1 {tbl} PO DAILY September 30, 2024 12:00am Complies with drug therapy Start: 09-30-2024 Fi-Ski-Qpfbf-K 4-Yjdipaj-Phvjgp (Centrum Silver Men) 935-30-182-300 mcg tablet Active 1 {tbl} PO DAILY September 30, 2024 12:00am polyethylene glycol 3350 14230 mg powder for oral solution (7 sources) Osmotic Laxative Start: 08-26-2024 Polyethylene Glycol 3350 (Miralax) 17 gram/dose powder Active 17 g PO daily August 26, 2024 1:00am Complies with drug therapy Start: 03-21-2023 End: 03-26-2023 17 g, Oral, Daily, First dos e on Sophie 03/21/23 at 1230, Recovery & On Unit, Bowel Regimen - for prevention of constipation. Prevagen (6 sources) Start: 06-10-2023 take 1 capsule by mo ut once daily Prevagen Active 1 CAP PO DAILY June 10, 2023 1:00am Start: 06-10-2023 take 1 capsule by mo uth once daily Prevagen Active 1 CAP PO DAILY June 10, 2023 12:00am rosuvastatin calcium 20 mg oral tablet (20 sources) HMG-CoA Reductase Inhibitor Start: 06-06-2017 End: 11-18-2024 take 1 tablet by mouth once daily Rosuvastatin 20 mg tablet Active 20 mg PO DAILY 90 November 18, 2024 1:15pm Complies with drug therapy Semaglutide (3 sources) Start: 12-15-2024 Semaglutide (Ozempic) 2 mg/dose (8 mg/3 mL) pen injector Active 2 mg SC EVERY WEEK 3 December 15, 2024 9:02am Diabetes mellitus Type 2 diabetes mellitus with hyperglycemia skilled nursing (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 insulin Complies with drug therapy Start: 07-09-2024 End: 12-15-2024 Semaglutide (Ozempic) 2 mg/d ose (8 mg/3 mL) pen injector Discontinued 2 mg SC EVERY WEEK 3 July 09, 2024 11:58am December 15, 2024 9:02am Diabetes mellitus Type 2 diabetes mellitus with hyperglycemia 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 (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 insulin Start: 01-30-2024 End: 07-09-2024 Semaglutide (Ozempic) 2 mg/d ose (8 mg/3 mL) pen injector Discontinued 2 mg SC EVERY WEEK 3 January 30, 2024 12:00am July 09, 2024 11:58am Diabetes mellitus Type 2 diabetes mellitus with hyperglycemia skilled nursing (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 insulin Semaglutide (Ozempic) 2 mg/d ose (8 mg/3 mL) pen injector (8 sources) Start: 07-09-2024 Semaglutide (O zempic) 2 mg/dose (8 mg/3 mL) pen injector Active 2 mg SC EVERY WEEK 3 July 09, 2024 11:58am Start: 01-30-2024 End: 07-09-2024 Semaglutide (Ozempic) 2 mg/d ose (8 mg/3 mL) pen injector Discontinued 2 mg SC EVERY WEEK 3 January 30, 2024 12:00am July 09, 2024 11:58am (2 sources) (2 sources) Start: 03-28-2023 Completed/Discontinued Medications Medication Drug Class(es) Dates Sig (Normalized) Sig (Original) 20 ml albumin human, chcf 250 mg/ml injection (2 sources) Human Serum Albumin Start: 03-21-2023 End: 03-23-2023 25 g, IntraVENous, As needed, fluid bolus challenge PRN: PAD below goal (18) and/or Low BP (less than 90 SBP and/or less than 60 MAP) and/or Low urine output (less than 30ml/hr) per hemodynamic goals, Starting on Sophie 03/21/23 at 1222, For 2 doses, Recovery & On Unit, To be given in conjunction with PRN 250ml Lactate Ringer Bolus Use if hgb greater than 7.5 and PAD below goal (18) and/or Low BP (less than 90 SBP and/or less than 60 MAP) and/or Low urine output (less than 30ml/hr) per hemodynamic goals If hemodynamic goals unattained, proceed to second fluid bolus challenge If hgb less than 7.5 notify surgeon for orders. albuterol 0.833 mg/ml / ipratropium bromide 0.167 mg/ml inhalation solution (4 sources) Anticholinergic, beta2-Adrenergic Agonist Start: 03-28-2023 End: 03-28-2023 Start: 03-21-2023 End: 03-28-2023 3 mL, Nebulization, 3 times daily PRN, wheezing, shortness of breath, Starting on Sophie 03/21/23 at 1222, Recovery & On Unit ALPRAZolam 0.25 mg disintegrating oral tablet (2 sources) Benzodiazepine Start: 03-21-2023 End: 03-21-2023 0.25 mg, Oral, PRN, anxiety, Starting on Sophie 03/21/23 at 0541, For 1 dose, Preprocedure, Using dry hands, place tablet on top of tongue and allow to disintegrate. Administration with water is not necessary. amLODIPine 5 mg oral tablet (20 sources) Dihydropyridine Calcium Channel Sherwin Start: 02-12-2023 End: 04-18-2023 take 1 tablet by mouth once daily Amlodipine 5 mg tablet Discontinued 5 mg PO DAILY 30 March 07, 2023 9:46am April 18, 2023 10:10am Blood-Glucose Meter (Accu-Chek Lisa Plus Meter) misc (20 sources) Start: 08-10-2018 End: 09-30-2024 Blood-Glucose Meter (Accu-Chek Lisa Plus Meter) misc Discontinued 0 .ROUTE .MEDSUPPLY 1 0 August 10, 2018 4:20pm September 30, 2024 8:42am [id number] use to check BG bid Start: 08-10-2018 End: 09-30-2024 Blood-Glucose Meter (Accu-Ch ek Lisa Plus Meter) misc Discontinued 0 .ROUTE .MEDSUPPLY 1 August 10, 2018 4:20pm September 30, 2024 8:42am use to check BG bid Start: 08-10-2018 Blood-Glucose Meter (Accu-Chek Lisa Plus Meter) misc Active 0 .ROUTE .MEDSUPPLY 1 August 10, 2018 4:20pm use to check BG bid Start: 08-10-2018 Blood-Glucose Meter (Accu-Chek Lisa Plus Meter) misc Active 0 .ROUTE .MEDSUPPLY 1 August 10, 2018 3:20pm use to check BG bid Start: 08-07-2018 End: 08-10-2018 Blood-Glucose Meter (Accu-Ch ek Lisa Plus Meter) misc Discontinued 0 .ROUTE .MEDSUPPLY 1 0 August 07, 2018 9:41am August 10, 2018 4:20pm [id number] use to check BG bid Start: 08-07-2018 End: 08-10-2018 Blood-Glucose Meter (Accu-Ch ek Lisa Plus Meter) misc Discontinued 0 .ROUTE .MEDSUPPLY 1 August 07, 2018 9:41am August 10, 2018 4:20pm use to check BG bid Start: 08-07-2018 End: 08-10-2018 Blood-Glucose Meter (Accu-Ch ek Lisa Plus Meter) misc Discontinued 0 .ROUTE .MEDSUPPLY 1 August 07, 2018 8:41am August 10, 2018 3:20pm use to check BG bid Start: 08-05-2018 End: 08-07-2018 Blood-Glucose Meter (Accu-Ch ek Lisa Plus Meter) misc Discontinued 0 .ROUTE .MEDSUPPLY 1 0 August 05, 2018 1:00am August 07, 2018 9:41am [id number] use to check BG bid Start: 08-05-2018 End: 08-07-2018 Blood-Glucose Meter (Accu-Ch ek Lisa Plus Meter) misc Discontinued 0 .ROUTE .MEDSUPPLY 1 August 05, 2018 1:00am August 07, 2018 9:41am use to check BG bid Start: 08-05-2018 End: 08-07-2018 Blood-Glucose Meter (Accu-Ch ek Lisa Plus Meter) misc Discontinued 0 .ROUTE .MEDSUPPLY 1 August 05, 2018 12:00am August 07, 2018 8:41am use to check BG bid calcium chloride 0.0014 meq/ml / potassium chloride 0.004 meq/ml / sodium chloride 0.103 meq/ml / sodium lactate 0.028 meq/ml injectable solution (10 sources) Start: 03-27-2023 End: 03-28-2023 take 50 mL intravenously every hour 50 mL/hr, IntraVENous, Continuous, Starting on Sat03/27/23 at 1700 Start: 03-26-2023 End: 03-27-2023 500 mL, IntraVENous, at 125 mL/hr, Administer over 4 Hours, Once, On 03/26/23 at 1345, For 1 dose Start: 03-21-2023 End: 03-23-2023 250 mL, IntraVENous, at 124 mL/hr, Administer over 121 Minutes, Continuous PRN, fluid bolus challenge: lactated ringers bolus, Starting on Sophie 03/21/23 at 1222, For 2 doses, Recovery & On Unit, To be given in conjunction with PRN 25gm Albumin order Use if hgb greater than 7.5 and PAD below goal (18) and/or Low BP (less than 90 SBP and/or less than 60 MAP) and/or Low urine output (less than 30ml/hr) per hemodynamic goals If hemodynamic goals unattained, proceed to second fluid bolus challenge If hgb less than 7.5 notify surgeon for orders. 100 ml calcium gluconate 20 mg/ml injection (2 sources) Start: 03-21-2023 End: 03-28-2023 2,000 mg, IntraVENous, at 50 mL/hr, Administer over 2 Hours, PRN, ionized calcium less than 4.3, Starting on Sophie 03/21/23 at 1222, Recovery & On Unit, Give 2000 mg for ionized calcium less than 4.3 premix bag chlorhexidine gluconate 1.2 mg/ml mouthwash (12 sources) Start: 03-21-2023 End: 03-27-2023 take 15 mL by mouth twice daily 15 mL, Mouth/Throat, 2 times daily, First dose on Sophie 03/21/23 at 1230, For 7 days, Recovery & On Unit, Rinse and spit. Do not swallow. Start: 03-21-2023 End: 03-28-2023 15 mL, Mouth/Throat, Once, O n Sophie 03/21/23 at 0545, For 1 dose, Preprocedure, Rinse and spit. Do not swallow. Start: 02-28-2023 End: 02-28-2023 chlorhexidine (Peridex) 0.12 % solution Use 15 mL in the mouth or throat Once for 1 dose. Swish for 30 seconds and spit out the night before surgery. Do not swallow. 15 mL 0 02/28/2023 02/28/2023 Active chlorhexidine (P eridex) 0.12 % solution Use 15 mL in the mouth or throat. Use night before and morning of surgery 0 Active cholecalciferol 9.52 unt/ml / glucose 357 mg/ml oral gel (2 sources) Vitamin D Start: 03-21-2023 End: 03-28-2023 15 g, Oral, As needed, low blood sugar, Starting on Sophie 03/21/23 at 1222, Recovery & On Unit, If blood glucose less than 50 mg/dL and patient ALERT and NOT NPO, give 2 tubes glucose gel. If blood glucose less than 70 mg/dL and patient ALERT and NOT NPO, give 1 tube glucose gel. Repeat blood glucose in 15 minutes. If blood glucose is less than 70 mg/dL, repeat treatment and recheck blood glucose in 15 minutes x2 and notify provider. 100 ml dexmedetomidine 0.004 mg/ml injection (2 sources) Central alpha-2 Adrenergic Agonist Start: 03-21-2023 End: 03-22-2023 0.1-1.5 mcg/kg/hr 136 kg (3.4-51 mL/hr), IntraVENous, Continuous, Starting on Sophie 03/21/23 at 1430, If Titrate Infusion? is No: Disregard instructions below. If Titrate infusion? is Yes: Titrate in increments of 0.2 mcg/kg/hr no more frequently than every 30 minutes to goal of therapy. If after titration rate change patient exhibits adverse hemodynamic response, next titration rate change may be adjusted by one-half of the previous rate change. If patient fails sedation interruption, resume dexmedetomidine infusion at 50% of previous rate., Titrate Infusion? Yes, Initial Infusion Dose: 0.2 mcg/kg/hr, Goal of Therapy: RASS of -1 to 0, Contact Provider if: New onset HR less than 50 bpm, New onset SBP less than 90 mmHg, Patient is receiving maximum dose and is not achieving the goal of therapy docusate sodium 100 mg oral capsule (5 sources) Start: 01-28-2024 End: 08-26-2024 take 1 capsule by mouth once daily Docusate Sodium (Colace) 100 mg capsule Discontinued 100 mg PO DAILY January 28, 2024 12:00am August 26, 2024 10:15am docusate sodium 50 mg / sennosides, chcf 8.6 mg oral tablet (2 sources) Start: 03-21-2023 End: 03-28-2023 take 2 tablets by mouth once daily for constipation 2 tablet, Oral, Nightly, First dose on [facility] 03/21/23 at 2100, Recovery & On Unit, Bowel Regimen - for prevention of constipation. enalapril maleate 20 mg oral tablet (20 sources) Angiotensin Converting Enzyme Inhibitor Start: 06-06-2017 End: 04-18-2023 take 1 tablet by mouth once daily Enalapril Maleate 20 mg tablet Discontinued 0 .ROUTE .COMPLEX 90 3 November 30, 2022 8:46am January 07, 2023 8:57am Essential (primary) hypertension TAKE 1 TABLET BY MOUTH EVERY DAY fluticasone propionate 0.05 mg/actuat metered dose nasal spray (11 sources) Corticosteroid Start: 10-17-2023 End: 04-01-2025 take 50 ug nasal route once daily as needed Fluticasone Propionate (Flonase Allergy Relief) 50 mcg/actuation spray,suspension Discontinued 1 NMA INTRANASAL DAILY as needed August 26, 2024 10:15am April 01, 2025 8:46am administer into each nostril Start: 10-17-2023 take 1 spray(s) nasa l route once daily Fluticasone Propionate (Flonase Allergy Relief) 50 mcg/actuation spray,suspension Active 1 SPRAY INTRANASAL DAILY October 17, 2023 12:00am administer into each nostril furosemide 40 mg oral tablet (4 sources) Loop Diuretic Start: 04-02-2023 End: 04-15-2023 take 1 tablet by mouth every other day furosemide (Lasix) 40 MG tablet Take 1 tablet (40 mg) by mouth every other day. 15 tablet 0 04/02/2023 04/15/2023 Discontinued (Therapy completed) Start: 03-23-2023 End: 03-27-2023 40 mg, IntraVENous, 2 times daily, First dose on 03/23/23 at 1015, On hold since Sat03/26/2023 at 0628 until manually unheld glucagon (rdna) 1 mg injection (2 sources) Antihypoglycemic Agent Start: 03-21-2023 End: 03-28-2023 1 mg, IntraMUSCular, PRN, low blood sugar, Blood glucose less than 70 mg/dL and patient NOT ALERT or NPO and does not have IV access., Starting on Sophie 03/21/23 at 1222, Recovery & On Unit, After administration, attempt intravenous access and start D5W at 100 mL/hr. Repeat blood glucose in 15 minutes x2 and notify provider. 150 ml glucose 50 mg/ml injection (4 sources) Start: 03-21-2023 End: 03-28-2023 12.5 g, IntraVENous, PRN, low blood sugar, Blood glucose less than 70 mg/dL and patient NOT ALERT or NPO., Starting on Sophie 03/21/23 at 1222, Recovery & On Unit, If patient does not respond within 5 minutes, repeat dose x1. Start D5W at 100 mL/hour until ordering provider can be reached. Repeat blood glucose in 15 minutes. If blood glucose is less than 70 mg/dL, repeat treatment and recheck blood glucose in 15 minutes x2. If using Glucostabilizer, dose as instructed per system. Start: 03-21-2023 End: 03-28-2023 100 mL/hr, IntraVENous, PRN, Blood sugar less than 70mg/dL, Starting on Sophie 03/21/23 at 1222, Recovery & On Unit, Start infusion following administration of dextrose 50% or glucagon. 0.5 ml heparin sodium, porcine [id number] unt/ml prefilled syringe (2 sources) Unfractionated Heparin, Anti-coagulant Start: 03-22-2023 End: 03-28-2023 inject 5000 [IU] by subcutaneous injection twice daily 5,000 Units, SubCUTAneous, 2 times daily, First dose on Sat03/22/23 at 0900 3 ml insulin degludec 100 unt/ml pen injector (20 sources) Insulin Analog Start: 09-11-2018 End: 09-11-2018 Insulin Degludec (Tresiba Flextouch U-100) 100 unit/mL (3 mL) insulin pen Discontinued 0 SC TWICE A DAY 120 3 September 11, 2018 12:56pm September 11, 2018 3:39pm [id number] 70 units q am and 60 units q pm SC BID; insulin lispro 100 unt/ml injectable solution (14 sources) Insulin Analog Start: 03-24-2023 End: 03-24-2023 inject 8 [IU] by subcutaneous injection once 8 Units, SubCUTAneous, Once, On Sat03/24/23 at 1900, For 1 dose Start: 03-24-2023 End: 03-26-2023 inject 24 [IU] by subcutaneous injection three times daily at mealtime 24 Units, SubCUTAneous, 3 times daily with meals, First dose (after last modification) on Sat03/24/23 at 0815 Start: 03-23-2023 End: 03-28-2023 inject 12 [IU] by subcutaneous injection three times daily at mealtime 12 Units, SubCUTAneous, 3 times daily with meals, First dose (after last modification) on Sat03/26/23 at 1200, Hold dose if pt is not eating Start: 03-23-2023 End: 03-28-2023 inject 14 [IU] by subcutaneous injection three times daily at mealtime 14 Units, SubCUTAneous, 3 times daily with meals, First dose (after last modification) on Sat03/27/23 at 1200, Hold dose if pt is not eating Start: 03-23-2023 End: 03-24-2023 inject 20 [IU] by subcutaneous injection three times daily at mealtime 20 Units, SubCUTAneous, 3 times daily with meals, First dose (after last reorder) on 03/23/23 at 1200 Start: 03-21-2023 End: 03-21-2023 0-28 Units, SubCUTAneous, ND N, high blood sugar, Surgery Patient, Starting on Sophie 03/21/23 at 0541, For 3 doses, Preprocedure, High Dose Corrective Algorithm Glucose: Dose: 70-180 No Insulin 181-240 8 Unit 241-300 16 Units 301-350 20 Units 351-400 24 Units Over 400 28 Units and notify physician 100 ml insulin, regular, human 1 unt/ml injection (2 sources) Insulin Start: 03-21-2023 End: 03-24-2023 1-50 Units/hr (1-50 mL/hr), IntraVENous, Continuous, Starting on Sophie 03/21/23 at 1230, Recovery & On Unit, As guided by calculator flowsheet Low target: 120 High target: 160 Hold insulin infusion if BS< 100 mg/dl, if BS < 70 mg/dl follow hypoglycemia treatment orders, continue to check BS as ordered, and restart insulin infusion if and when BS increases back into goal range. BUD: 30 days at room temperature lactulose 667 mg/ml oral solution (2 sources) Osmotic Laxative Start: 03-25-2023 End: 03-25-2023 take 1 dose by mouth once 20 g, Oral, 3 times daily, First dose on 03/25/23 at 1430, For 1 day, Can DC once BM achieved. levoFLOXacin 500 mg oral tablet (20 sources) Quinolone Antimicrobial Start: 02-01-2021 End: 01-09-2022 take 1 tablet by mouth once daily Levofloxacin 500 mg tablet Discontinued 500 mg PO DAILY 10 0 January 09, 2022 9:10am January 09, 2022 11:29am lidocaine 0.04 mg/mg medicated patch (2 sources) Antiarrhythmic, Amide Local Anesthetic Start: 03-21-2023 End: 03-28-2023 apply 1 dose topically once daily, then apply 1 dose topically every twelve hours 1 patch, Topical, Administer over 12 Hours, Daily, First dose on Sophie 03/21/23 at 1230, Recovery & On Unit, Apply patch to chest, not directly over incision. Patch may remain in place for up to 12 hours in any 24 hour period. 3 ml liraglutide 6 mg/ml pen injector (20 sources) GLP-1 Receptor Agonist Start: 01-09-2022 End: 08-08-2023 Liraglutide (Victoza 3-Joe) 0.6 mg/0.1 mL (18 mg/3 mL) pen injector Discontinued 1.2 mg SC DAILY January 09, 2022 9:09am August 08, 2023 11:11am [id number] Start: 06-06-2017 End: 01-09-2022 Liraglutide (Victoza 2-Joe) 0.6 mg/0.1 mL (18 mg/3 mL) pen injector Discontinued 1.8 mg SC daily 18 3 June 09, 2018 9:29pm June 10, 2018 9:39am [id number] liraglutide (Zak toza) 18 MG/3ML injection magnesium hydroxide 80 mg/ml oral suspension (2 sources) Start: 03-25-2023 End: 03-26-2023 take 1 dose by mouth every twenty-four hours for constipation 30 mL, Oral, Daily, First dose (after last modification) on Sat03/25/23 at 0630, Recovery & On Unit, 1st line for treatment of constipation - give scheduled if no bowel movement in past 24 hours melatonin 5 mg oral tablet (2 sources) Start: 03-26-2023 End: 03-28-2023 take 10 mg by mouth once daily 10 mg, Oral, Nightly, First dose on Sat03/26/23 at 2100 mirtazapine 15 mg disintegrating oral tablet (2 sources) Start: 04-02-2023 End: 04-15-2023 take 1 tablet by mouth once daily mirtazapine (Remeron SolTab) 15 MG disintegrating tablet Take 1 tablet (15 mg) by mouth Nightly. 30 tablet 0 04/02/2023 04/15/2023 Discontinued (Therapy completed) Wtjaunfk-Pws-Qr-Lycopen -Lutein (Centrum Silver) 0.4-300-250 mg-mcg-mcg tablet (19 sources) Start: 06-06-2017 End: 09-30-2024 Xegusexr-Qva-Mo-Lycope n-Lutein (Centrum Silver) 0.4-300-250 mg-mcg-mcg tablet Discontinued 1 {tbl} PO EVERY MORNING June 06, 2017 1:00am September 30, 2024 8:55am Start: 06-06-2017 Cnlpbxjl-Exy-X j-Mnqitmv-Pgdhvp (Centrum Silver) 0.4-300-250 mg-mcg-mcg tablet Active 1 {tbl} PO EVERY MORNING June 06, 2017 1:00am Start: 06-06-2017 take 1 tablet by tony th once daily in the morning Hyyinmng-Joj-Hx-Lycopen-Lutein (Centrum Silver) 0.4-300-250 mg-mcg-mcg tablet Active 1 TABLET PO EVERY MORNING June 06, 2017 1:00am Start: 06-06-2017 take 1 tablet by tony th once daily in the morning Whobkphj-Dpp-Ll-Lycopen-Lutein (Centrum Silver) 0.4-300-250 mg-mcg-mcg tablet Active 1 TABLET PO EVERY MORNING June 06, 2017 12:00am mupirocin 0.02 mg/mg topical ointment (13 sources) RNA Synthetase Inhibitor Antibacterial Start: 03-21-2023 End: 03-21-2023 take 1 dose nasal route once Nasal, Once, On Sat03/21/23 at 0545, For 1 dose, Preprocedure, Apply liberal amount per nostril the morning of surgery using a q-tip. Do not totally occlude either nostril. Start: 02-28-2023 End: 03-28-2023 Nasal, 2 times daily, First dose on Sat03/21/23 at 1230, For 4 days, Recovery & On Unit Start: 02-28-2023 mupirocin (Meaghan troban) 2 % ointment Apply liberal amount per nostril the night before surgery and then again the morning of surgery 1 g 0 02/28/2023 Active nitroglycerin 0.4 mg sublingual tablet (20 sources) Nitrate Vasodilator Start: 06-06-2017 End: 08-26-2024 Nitroglycerin (Nitrostat) 0.4 mg tablet, sublingual Discontinued 0.4 mg SL Q5M as needed for Cardiac/Chest Pain 15 09July 18, 2023 12:02pm August 26, 2024 11:13am Start: 06-06-2017 End: 06-06-2017 apply 0.4 mg transdermal route every hour Nitroglycerin (Minitran) 0.4 mg/hr patch 24 hour Discontinued 1 NMA TD Q24H June 06, 2017 1:00am June 06, 2017 5:51pm Start: 06-06-2017 End: 07-18-2023 Nitroglycerin (Nitrostat) 0. 4 mg tablet, sublingual Discontinued 0.4 MG SL Q5M January 13, 2021 8:34am July 18, 2023 12:02pm [place] 0-Hyl-Zbp-Fish Oil (Fi sh Oil) 1,200 (144-216) mg capsule (2 sources) Start: 09-30-2024 End: 04-01-2025 [place] 8-Ubp-Hwm-Fish Oil (Fi sh Oil) 1,200 (144-216) mg capsule Discontinued 1 NMA PO DAILY September 30, 2024 12:00am April 01, 2025 8:47am Start: 09-30-2024 [place] 3-Dha-Ep a-Fish Oil (Fish Oil) 1,200 (144-216) mg capsule Active 1 NMA PO DAILY September 30, 2024 12:00am oxyCODONE hydrochloride 5 mg oral tablet (4 sources) Opioid Agonist Start: 03-28-2023 End: 04-02-2023 take 1 tablet by mouth every six hours as needed for pain oxyCODONE (Roxicodone) 5 MG immediate release tablet Indications: CAD in [place] artery , 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 15 tablet 0 03/28/2023 04/02/2023 Discontinued (Therapy completed) pantoprazole 40 mg delayed release oral tablet (4 sources) Proton Pump Inhibitor Start: 03-25-2023 End: 03-28-2023 take 40 mg by mouth once daily before breakfast 40 mg, Oral, Daily before breakfast, First dose on Sat03/25/23 at 0700, Do not crush, chew, or split. Start: 03-22-2023 End: 03-25-2023 40 mg, IntraVENous, Administ er over 2 Minutes, Daily, First dose on Sat03/22/23 at 0600, Recovery & On Unit, Reconstitute with 10 mL 0.9 % sodium chloride and administer over at least 2 minutes. microencapsulated potassium chloride 10 meq extended release oral tablet (2 sources) Start: 03-22-2023 End: 03-28-2023 20 mEq, Oral, PRN, Hypokalemia, Starting on Sat03/22/23 at 0000, Recovery & On Unit, If patient is intubated or not tolerating PO use PRN IV replacement protocol Potassium level Dose LESS than 3.0 = Give 20 mEq x 3 doses 3.0-3.6 = Give 20 mEq x 2 doses Recheck potassium level 2 hour after replacement given, place order for lab under [place] If potassium level LESS than 3 after 1st replacement: Call surgeon. Do not crush or break. Do not crush or chew. Prevagen capsule (5 sources) Start: 06-10-2023 End: 09-30-2024 take 1 capsule by mouth once daily Prevagen capsule Discontinued 1 NMA PO DAILY June 10, 2023 1:00am September 30, 2024 8:55am Start: 06-10-2023 take 1 capsule by [facility] once daily Prevagen capsule Active 1 NMA PO DAILY June 10, 2023 1:00am 100 ml propofol 10 mg/ml injection (2 sources) General Anesthetic Start: 03-21-2023 End: 03-21-2023 5-50 mcg/kg/min 136 kg (4.08-40.8 mL/hr), IntraVENous, Continuous, Starting on Sophie 03/21/23 at 1230, Recovery & On Unit, Instructions If RASS 1 point below goal - decrease dose by 5mcg/kg/min no faster than every 5 min If RASS 2 points below goal- decrease dose by 10mcg/kg/min no faster than every 5 min If RASS at goal, continue current dose If RASS 2 or more points above goal - increase dose by 10mcg/kg/min no faster than every 5 min If RASS 1 point above goal - increase dosee by 5mcg/kg/min no faster than every 5 min If after titration rate change patient exhibits adverse hemodynamic response, next titration rate change may be adjusted by one-half of the previous rate change If patient fails sedation interruption, resume propofol titration at 50% of previous rate General Anesthetic - do not give without appropriate ventilation support. Do not administer propofol in same IV catheter as blood or plasma. Discard any unused portion of propofol vials and tubing after 12 hours., Titrate Infusion? Yes, Initial Infusion Dose: 30 mcg/kg/min, Goal of Therapy: RASS of -1 to 0, Contact Provider if: Patient is receiving maximum dose and is not achieving the goal of therapy repaglinide 2 mg oral tablet (20 sources) Glinide Start: 06-06-2017 End: 04-18-2023 Repaglinide (Prandin) 2 mg tablet Discontinued 4 mg PO .COMPLEX 720 March 17, 2018 1:03pm April 18, 2023 10:09am Type 2 diabetes mellitus without complications e11.9 4 mg PO with each meal and snack Semaglutide (7 sources) Start: 08-08-2023 End: 10-17-2023 Semaglutide (Ozempic) 0.25 mg or 0.5 mg (2 mg/3 mL) pen injector Discontinued 0.25 mg SC EVERY WEEK 3 August 08, 2023 1:00am October 17, 2023 10:06am Diabetes mellitus Type 2 diabetes mellitus without complications for 4 weeks Start: 08-08-2023 End: 10-17-2023 Semaglutide (Ozempic) 0.25 m g or 0.5 mg (2 mg/3 mL) pen injector Discontinued 0.25 mg SC EVERY WEEK 3 August 08, 2023 1:00am October 17, 2023 10:06am for 4 weeks Start: 08-08-2023 End: 10-17-2023 Semaglutide (Ozempic) 0.25 m g or 0.5 mg (2 mg/3 mL) pen injector Discontinued 0.25 MG SC EVERY WEEK 3 August 08, 2023 1:00am October 17, 2023 10:06am for 4 weeks Start: 08-08-2023 Semaglutide (O zempic) 0.25 mg or 0.5 mg (2 mg/3 mL) pen injector Active 0.25 MG SC EVERY WEEK 3 August 08, 2023 12:00am for 4 weeks Semaglutide (6 sources) Start: 10-17-2023 End: 01-30-2024 Semaglutide (Ozempic) 1 mg/d ose (4 mg/3 mL) pen injector Discontinued 1 mg SC EVERY WEEK 3 October 17, 2023 12:00am January 30, 2024 8:33am Diabetes mellitus Type 2 diabetes mellitus without complications Start: 10-17-2023 End: 01-30-2024 Semaglutide (Ozempic) 1 mg/d ose (4 mg/3 mL) pen injector Discontinued 1 mg SC EVERY WEEK October 17, 2023 12:00am January 30, 2024 8:33am Start: 10-17-2023 Semaglutide (O zempic) 1 mg/dose (4 mg/3 mL) pen injector Active 1 MG SC EVERY WEEK October 17, 2023 12:00am 5 ml sodium chloride 9 mg/ml injection (8 sources) Start: 03-21-2023 End: 03-27-2023 10 mL, IntraVENous, Every 12 hours scheduled (2 times per day), First dose on Sat03/21/23 at 2100, Recovery & On Unit Start: 03-21-2023 End: 03-25-2023 take 20 mL intravenously every hour 20 mL/hr, IntraVENous, Continuous, Starting on Sat03/21/23 at 1230, Recovery & On Unit, 20 ml/hr to SP(introducer) and WT on [place] D[place]iana Catheter; once [place] discontinued run at 20 ml/hr through SP(introducer) Start: 03-21-2023 End: 03-27-2023 take 100 mL intravenously every hour as needed, then take 20 mL intravenously every hour as needed 5-250 mL/hr, IntraVENous, PRN, if patient receiving piggyback infusions and maintenance fluids are not ordered OR KVO fluids to protect IV site / prevent frequent line interruptions/ long duration, Starting on Sat03/21/23 at 1222, Recovery & On Unit, For piggyback infusion, administer at same rate as piggyback for a total of 25 mL. Enter 25 mL into dose field and piggyback rate into rate field of order. If piggyback is infusing at a rate less than 100 mL/hr, enter 25 mL into dose field and 100 mL/hr into rate field of order. For KVO fluids, enter rate of 20 mL/hr or less into rate field of order. 5 ml sugammadex 100 mg/ml injection (2 sources) Start: 03-21-2023 End: 03-21-2023 540 mg (rounded from 544 mg = 4 mg/kg 136 kg), IntraVENous, Once, On Sophie 03/21/23 at 1245, For 1 dose, Recovery & On Unit Vancomycin (2 sources) Glycopeptide Antibacterial Start: 03-21-2023 End: 03-22-2023 take 1500 mg intravenously every twelve hours 1,500 mg, IntraVENous, at 125 mL/hr, Administer over 120 Minutes, Every 12 hours, First dose on Sophie 03/21/23 at 1300, For 3 doses, Recovery & On Unit, Do not give if Creatinine greater than 1.4. Give first dose 12 hours after pre op dose. premix bag, Suspected Indication (Select all that apply): Surgical Prophylaxis (6 sources) Start: 03-27-2023 End: 03-28-2023 take 2000 mg intravenously every twelve hours 2,000 mg, IntraVENous, Administer over 30 Minutes, Every 12 hours, First dose on Sat03/27/23 at 2000, Mini-Bag Plus bag, Suspected Indication (Select all that apply): Aspiration Pneumonia Start: 03-21-2023 End: 03-28-2023 take 5 mg by mouth every six hours as needed for pain [Order 1 Start] Name: oxyCODONE (Roxicodone) immediate release tablet 5 mg Signed Summary: 5 mg, Oral, Every 6 hours PRN, moderate pain (4-6), Starting on Sophie 03/21/23 at 1222, Recovery & On Unit [Order 1 End] [Order 2 Start] Name: oxyCODONE (Roxicodone) immediate release tablet 10 mg Signed Summary: 10 mg, Oral, Every 6 hours PRN, severe pain (7-10), Starting on Sophie 03/21/23 at 1222, Recovery & On Unit [Order 2 End] Start: 03-21-2023 End: 03-28-2023 take 4 mg by mouth every eight hours as needed for nausea and vomiting [Order 1 Start] Name: ondansetron ODT (Zofran-ODT) disintegrating tablet 4 mg Signed Summary: 4 mg, Oral, Every 8 hours PRN, nausea, vomiting, Starting on Sophie 03/21/23 at 1222, Recovery & On Unit, 1st Line. If inadequate response within 60 minutes, proceed to next-line agent or contact provider if no further options ordered. Patient should allow tablet to dissolve on tongue. Do not remove from blister pack until just before administering. [Order 1 End] [Order 2 Start] Name: ondansetron (Zofran) injection 4 mg Signed Summary: 4 mg, IntraVENous, Every 6 hours PRN, nausea, vomiting, Starting on Sophie 03/21/23 at 1222, Recovery & On Unit, 1st Line. Give IV if patient is unable to take orally. If inadequate response within 60 minutes, proceed to next-line agent or contact provider if no further options ordered. [Order 2 End] Problems Active Problems Problem Classification Problem Date Documented Da te Episodic/Chronic Aortic; peripheral; and visceral artery aneurysms (2 sources) Aneurysm of ascending aorta; Translations: [Aneurysm of ascending aorta without rupture (HCC)] 03-28-2023 Chronic Cancer of testis (13 sources) Malignant tumor of testis; Translations: [Malignant neoplasm of unspecified testis, unspecified whether descended or undescended] Onset: 02-20-1982 02-22-2023 Chronic Cancer of testis (19 sources) History of malignant neoplasm of testis; Translations: [Personal history of malignant neoplasm of testis] 01-13-2020 Episodic Complication of device; implant or graft (2 sources) Coronary atherosclerosis; Translations: [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)] 03-11-2023 Chronic Conduction disorders (20 sources) Right bundle branch block AND left anterior fascicular block; Translations: [Bifascicular block] Onset: 10-27-2024 12-30-2017 Chronic Coronary atherosclerosis and other heart disease (20 sources) Old inferior myocardial infarction; Translations: [Old myocardial infarction] Onset: 04-22-2005 01-02-2019 Chronic Comment on above: SUZETTE-RCA 2004; JOSEF AD, SVG-OM, SVG-rPDA 03/21/23 [place] Diabetes mellitus with complications (16 sources) Retinopathy due to diabetes mellitus; Translations: [Type 2 diabetes mellitus with unspecified diabetic retinopathy without macular edema] Onset: 02-22-2023 02-22-2023 Chronic Diabetes mellitus without complication (20 sources) Type 2 diabetes mellitus; Translations: [Type 2 diabetes mellitus without complications] Onset: 11-21-1991 02-22-2023 Chronic Disorders of lipid metabolism (20 sources) Hyperlipidemia; Translations: [Hyperlipidemia, unspecified] Onset: 09-23-2007 01-13-2021 Chronic Diverticulosis and diverticulitis (13 sources) Diverticulosis of colon; Translations: [Diverticulosis of large intestine without perforation or abscess without bleeding] Onset: 05-30-2007 02-22-2023 Chronic Essential hypertension (20 sources) Essential hypertension; Translations: [Essential (primary) hypertension] Onset: 03-11-2023 01-13-2021 Chronic Hemorrhoids (19 sources) Hemorrhoids; Translations: [Unspecified hemorrhoids] 02-01-2021 Episodic Immunizations and screening for infectious disease (19 sources) Contact with or exposure to other viral diseases; Translations: [Lab test negative for COVID-19 virus] 02-01-2021 Episodic Open wounds of extremities (20 sources) Laceration of thigh; Translations: [Laceration without foreign body, unspecified thigh, initial encounter] 11-15-2017 Episodic Other aftercare (1 source) 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 (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 insulin; Translations: [buttermaker (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 insulin] Onset: 04-01-2025 Episodic Other and unspecified benign neoplasm (19 sources) History of polyp of colon; Translations: [Personal history of colonic polyps] 10-17-2020 Episodic Other circulatory disease (3 sources) Vascular disorder; Translations: [Other disorders of arteries, arterioles and capillaries in diseases classified elsewhere] Onset: 03-11-2023 03-11-2023 Chronic Other circulatory disease (1 source) Other disorders of arteries, arterioles and capillaries in diseases classified elsewhere; Translations: [Other disorders of arteries, arterioles and capillaries in diseases classified elsewhere (HCC)] Onset: 03-11-2023 Chronic Other gastrointestinal disorders (8 sources) Constipation; Translations: [Constipation, unspecified] 06-03-2024 Episodic Other lower respiratory disease (15 sources) Elevated diaphragm; Translations: [Disorders of diaphragm] Onset: 02-22-2023 02-22-2023 Episodic Other lower respiratory disease (2 sources) Disorders of diaphragm; Translations: [Disorders of diaphragm] Onset: 02-22-2023 Episodic Other nutritional; endocrine; and metabolic disorders (14 sources) Body mass index 40+ - severely obese; Translations: [Morbid (severe) obesity due to excess calories] Onset: 10-23-2017 02-22-2023 Chronic Other nutritional; endocrine; and metabolic disorders (2 sources) Morbid (severe) obesity due to excess calories; Translations: [Morbid (severe) obesity due to excess calories (HCC)] Onset: 02-22-2023 Chronic Other nutritional; endocrine; and metabolic disorders (11 sources) Obesity; Translations: [Obesity, unspecified] 08-08-2023 Chronic Other nutritional; endocrine; and metabolic disorders (3 sources) Obesity, unspecified; Translations: [Obesity, unspecified] 08-08-2023 Chronic Other screening for suspected conditions (not mental disorders or infectious disease) (17 sources) Cardiovascular stress test abnormal; Translations: [Abnormal result of other cardiovascular function study] 02-07-2023 Episodic Other upper respiratory infections (20 sources) Acute maxillary sinusitis; Translations: [Acute maxillary sinusitis, unspecified] 02-01-2021 Episodic Residual codes; unclassified (19 sources) Family history of cancer of colon; Translations: [Family history of malignant neoplasm of digestive organs] 10-17-2020 Episodic Unclassified (1 source) Aneurysm of the ascending aorta, without rupture (HCC); Translations: [Aneurysm of the ascending aorta, without rupture (HCC)] Onset: 03-21-2023 Unclassified (1 source) 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 (HCC); Translations: [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 (HCC)] Onset: 03-11-2023 Unclassified (2 sources) New Patient; Translations: [New Patient] Onset: 02-27-2023 Past or Other Problems Problem Classification Problem Date Documented Date Episodic/Chronic Coronary atherosclerosis and other heart disease (20 sources) Presence of coronary angioplasty implant and graft; Translations: [Percutaneous transluminal coronary angioplasty status] Onset: 06-24-2004 01-07-2023 Episodic Other male genital disorders (1 source) Scrotal pain; Translations: [Scrotal pain] Onset: 11-07-2024 Episodic Unclassified (1 source) Aneurysm of the ascending aorta, without rupture (HCC); Translations: [Aneurysm of the ascending aorta, without rupture (HCC)] Onset: 03-21-2023 Unclassified (1 source) 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 [place] [address] OFFICE VISIT Date of Service: 04/01/25 MR#: [id number] Acct: [id number] Name: ROBERT LIPSCOMB Rep #: [id number] : 1955 Provider: NATASHA ferrera Age/Sex: 69/M [place] [facility] [place]: Signed Intake Vital Signs 09/30/24 08:44 04/01/25 08:40 Height 5 ft 10 in 5 ft 10 in Weight: 297 lb 293 lb 2 oz BMI 42.6 42.0 BP 151/79 H 151/79 H Blood Pressure Location Lt brachial Rt brachial Position Sitting Sitting Pulse 64 76 Pulse Source Monitor Monitor Pulse Oximetry (%) 97 98 Oxygen Delivery Method room air room air Intake Visit Reasons: 6 M CHRISTY 01/27 Chief Complaint: f/u diabetes Is patient in pain?: No Allergies amoxicillin (From Augmentin) Allergy (Severe, Verified 04/01/25 08:46) Unknown clavulanic acid (From Augmentin) Allergy (Severe, Verified 04/01/25 08:46) Unknown atorvastatin (From Lipitor) Allergy (Verified 04/01/25 08:46) Pain in joints metformin (From Glucophage) Allergy (Verified 04/01/25 08:46) Rash pollen extracts Allergy (Verified 04/01/25 08:46) Other Medications ???Medication ???Instructions ???Recorded ???Confirmed ???Type acetaminophen 500 mg tablet 500 mg PO Q6H PRN 04/18/23 5 History (Tylenol Extra Strength) aspirin 81 mg tablet,delayed 81 mg PO QDAY 04/18/23 04/01/25 Hi story release (Adult Aspirin Regimen) nitroglycerin 0.4 mg sublingual 0.4 mg sublingual Q5M PRN 08/26/24 04/01/25 Rx tablet (Nitrostat) Cardiac/Chest Pain #25 tabs polyethylene glycol 3350 17 17 g PO QDAY 08/26/24 04/01/25 His tory gram/dose oral powder (Miralax) icosapent ethyl 1 gram capsule 2 g (2 x 1 gram) PO BID #360 caps 09/30/24 04/01/25 Rx (Vascepa) ttmzrsyq-kn-wzluz 300 mcg-K 60 1 tab PO DAILY 09/30/24 04/01/25 H istory mcg-lycop 600 mcg-lutein 300 mcg tablet (Centrum Silver Men) blood sugar diagnostic (OneTouch #300 ea 10/01/24 04/01/25 Rx Ultra Test strips) atenolol 50 mg tablet 50 mg PO QDAY #90 tabs 11/18/24 Rx insulin glargine 100 unit/mL (3 50 unit (0.5 mL) subcut DAILY #45 11/18/24 04/01/25 Rx mL) subcutaneous pen (Lantus mL Solostar U-100 Insulin) rosuvastatin 20 mg tablet 20 mg PO DAILY #90 TABLETS 2 5 04/01/25 Rx semaglutide 2 mg/dose (8 mg/3 mL) 2 mg (0.75 mL) subcut QWEEK #3 mL 12/15/24 04/01/25 Rx subcutaneous pen injector (Ozempic) insulin aspart U-100 100 unit/mL 33 unit (0.33 mL) subcut TID #90 m L 01/13/25 04/01/25 Rx (3 mL) subcutaneous pen (Novolog FlexPen U-100 Insulin aspart) pen needle, diabetic 32 gauge x #350 ea 01/15/25 04/01/25 Rx Have you fallen in the past year?: No PFSH Medical History URI (upper respiratory infection) Lab test negative for COVID-19 virus Acute maxillary sinusitis, unspecified Hemorrhoids Family history of malignant neoplasm of colon in father Personal history of colonic polyps Old inferior wall myocardial infarction Essential (primary) hypertension History of testicular cancer Family history of colon cancer in father Right bundle branch block (RBBB) with left anterior fascicular block 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 diabetic retinopathy Obesity due to excess calories Hyperlipidemia Atherosclerosis of coronary artery of [place] heart without angina pectoris Skin cancer Pneumonia Cataracts, bilateral H/O transfusion of whole blood Arthritis Anemia Seasonal allergies Surgical History History of coronary artery bypass surgery (03/21/23) H/O tympanostomy (2020) History of incisional hernia repair History of orchiectomy History of tonsillectomy and adenoidectomy History of appendectomy H/O inguinal hernia repair History of coronary artery stent placement (2004) H/O colonoscopy Family History Mother Cancer pancreatic Father Cancer colon Sister Diabetes CAD (coronary artery disease) Aunt Colon cancer Breast cancer Social History Smoking Status: Never smoker second hand exposure: No alcohol intake: current substance use type: does not use HPI HPI Chief Complaint: f/u diabetes Details: ROBERT LIPSCOMB, is a 69 M who presents to the office today for evaluation and management of diabetes. A1C today is 6.2%, consistent 09/30/24. He has lost 4 lbs since that time. Currently taking Ozempic 2 mg qweek- tolerating well, Lantus 50 u once daily and Novolog 28 u TIDCM. He brings blood sugar log in for review- he is having intermittent lows prior to supper time. H (more content not included)... Normal [facility] Testicular with Arterial Joshua won 11-03-2024 Testicular with Arterial Flow [facility] Imaging Services [address] [place], [place] [id number] Testicular with Arterial Flow MR#: [id number] Acct: [id number] Name: ROBERT LIPSCOMB Jr. Rep #: [id number] : 1955 M 69 From: Chandler anderson MD PCP: Dr. Temo Rodriguez DO Status: REG CLI Study: Testicular with Arterial Flow Date of Exam: Exam# [id number] Ordering Dr: Temo Rodriguez DO PROCEDURE: TESTICULAR WITH ARTERIAL FLOW 11/03/2024 REASON FOR EXAM: SCROTAL PAIN, L TESTI PAIN HX R TEST CA TECHNIQUE: Meredith scale imaging of the scrotal contents. 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 LEFT testicle: 5.3 cm x 3.5 cm x 2.7 cm Left epididymis: 0.8 cm by 1 cm x 1.2 cm Other findings: No hydrocele or large varicocele. US/Testicular with Arterial Flow IMPRESSION: Normal left scrotal ultrasound. The patient is status post right orchiectomy. Reading Location: [facility] CC: Dr. Temo Rodriguez DO Business Services Clerk: Signed Normal [facility] Endocrinology Visit Reporton 09-30-2024 Endocrinology Visit Report [facility] [place] [address] OFFICE VISIT Date of Service: 09/30/24 MR#: [id number] Acct: [id number] Name: ROBERT LIPSCOMB JrMichael Rep #: [id number] : 1955 Provider: NATASHA ferrera Age/Sex: 68/M [place] [facility] [place]: Signed Intake Vital Signs 06/03/24 08:35 08/26/24 09:02 09/30/24 08:44 Height 5 ft 10 in 5 ft 10 in 5 ft 10 in Weight: 296 lb 297 lb BMI 42.5 42.6 BP 136/81 H 151/79 H Blood Pressure Location Lt brachial Lt brachial Position Sitting Sitting Respiration 18 Pulse 79 64 Pulse Source NIBP Monitor Pulse Oximetry (%) 97 Oxygen Delivery Method room air Intake Visit Reasons: 4 M FU Chief Complaint: f/u diabetes Gameroom Technician Required: No Accompanied by: Is patient in pain?: No Allergies amoxicillin (From Augmentin) Allergy (Severe, Verified 09/30/24 08:42) Unknown clavulanic acid (From Augmentin) Allergy (Severe, Verified 09/30/24 08:42) Unknown atorvastatin (From Lipitor) Allergy (Verified 09/30/24 08:42) Pain in joints metformin (From Glucophage) Allergy (Verified 09/30/24 08:42) Rash pollen extracts Allergy (Verified 09/30/24 08:42) Other Medications ???Medication ???Instructions ???Recorded ???Confirmed ???Type acetaminophen 500 mg tablet 500 mg PO Q6H PRN 04/18/23 5 History (Tylenol Extra Strength) aspirin 81 mg tablet,delayed 81 mg PO QDAY 04/18/23 09/30/24 Hi story release (Adult Aspirin Regimen) atenolol 50 mg tablet 50 mg PO QDAY #90 tabs 11/25/23 Rx rosuvastatin 20 mg tablet 20 mg PO DAILY #90 tabs 11/25/23 0 09/30/24 Rx pen needle, diabetic 32 gauge x #350 ea 04/20/24 09/30/24 Rx /32 (BD Ultra-Fine Kiana Pen Needle) semaglutide 2 mg/dose (8 mg/3 mL) 2 mg (0.75 mL) subcut QWEEK #3 mL 07/09/24 09/30/24 Rx subcutaneous pen injector (Ozempic) fluticasone propionate 50 1 spray intranasal DAILY PRN 08/2609/30/24 History mcg/actuation nasal spray,suspension (Flonase Allergy Relief) nitroglycerin 0.4 mg sublingual 0.4 mg sublingual Q5M PRN 08/26/24 09/30/24 Rx tablet (Nitrostat) Cardiac/Chest Pain #25 tabs polyethylene glycol 3350 17 17 g PO QDAY 08/26/24 09/30/24 His tory gram/dose oral powder (Miralax) insulin aspart U-100 100 unit/mL 30 unit (0.3 mL) subcut TID #90 mL 09/08/24 09/30/24 Rx (3 mL) subcutaneous pen (Novolog FlexPen U-100 Insulin aspart) icosapent ethyl 1 gram capsule 2 g (2 x 1 gram) PO BID #360 caps 09/30/24 09/30/24 Rx (Vascepa) insulin glargine 100 unit/mL (3 50 unit subcut DAILY 09/30/2403/18 History mL) subcutaneous pen (Lantus Solostar U-100 Insulin) nceuhozv-hj-pqwlw 300 mcg-K 60 1 tab PO DAILY 09/30/24 09/30/24 H istory mcg-lycop 600 mcg-lutein 300 mcg tablet (Centrum Silver Men) omega 3-ing-xlh-fish oil 1,200 mg 1 cap PO DAILY 09/30/24 09/30/24 History (144 mg-216 mg) capsule (Fish Oil) blood sugar diagnostic (OneTouch #300 ea 10/01/24 Rx Ultra Test strips) Have you fallen in the past year?: No PFSH Medical History URI (upper respiratory infection) Lab test negative for COVID-19 virus Acute maxillary sinusitis, unspecified Hemorrhoids Family history of malignant neoplasm of colon in father Personal history of colonic polyps Old inferior wall myocardial infarction Essential (primary) hypertension History of testicular cancer Family history of colon cancer in father Right bundle branch block (RBBB) with left anterior fascicular block 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 diabetic retinopathy Obesity due to excess calories Hyperlipidemia Atherosclerosis of coronary artery of [place] heart without angina pectoris Skin cancer Pneumonia Cataracts, bilateral H/O transfusion of whole blood Arthritis Anemia Seasonal allergies Surgical History History of coronary artery bypass surgery (03/21/23) H/O tympanostomy (2020) History of incisional hernia repair History of orchiectomy History of tonsillectomy and adenoidectomy History of appendectomy H/O inguinal hernia repair History of coronary artery stent placement (2004) H/O colonoscopy Family History Mother Cancer pancreatic Father Cancer colon Sister Diabetes CAD (coronary artery disease) Aunt Colon cancer Breast cancer Social History Smoking Status: Never smoker second hand exposure: No alcohol intake: current substance use type: does not use HPI HPI Chief Complaint: f/u diabetes Details: jose alberto ACEVEDO (more content not included)... Normal [facility] - Hematology and Cell countsOrdered By: Geovani Peterson on 09-30-2024 HbA1c (Bld) [Mass fraction] 6.2 % 4.2-6.3 [facility] Calculated very low density lipoprotein (VLDL) cholesterol measurementOrdered By: Temo Rodriguez on 09-23-2024 Calculated very low density lipoprotein (VLDL) cholesterol measurement 39 mg/dL [facility] VLDL Cholesterol 39 mg/dL [facility] LDL calc ser/plasOrdered By: Temo Rodriguez on 09-23-2024 Cholesterol in LDL [Mass/Vol] 54 mg/dL [facility] Comment on above: Fbiieahuas=441-930 m g/dL & Higher Sqkt=886 mg/dL or greater LDL Cholesterol, Calculated 54 mg/dL [facility] Comment on above: Zpgkjzoaii=143-741 m g/dL & Higher Fdie=234 mg/dL or greater Lipid Profileon 09-23-2024 CHOL:HDL 3.39 Normal [facility] Comment on above: Performed By: #### L 500.4100 ####[facility] [address] [place], [place], [phone]) Cholesterol [Mass/Vol] 131 mg/dL Normal <=200 [facility] Comment on above: Result Comment: Chol esterol level, Desirable <200 mg/dL Borderline high cholesterol 200-239 mg/dL High cholesterol >=240 mg/dL Recommendations of the NCEP Adult Treatment Panel for the following risk-cutoff thresholds for the [place] population. Performed By: #### L 500.4100 ####[facility] [address] [place], [place], [phone] Cholesterol in HDL [Mass/Vol] 39 mg/dL Low [facility] Comment on above: Result Comment: Connie onal Cholesterol Education Program (NCEP) guidelines: <40 mg/dL: Low HDL-cholesterol (major risk factor for CHD) >= 60 mg/dL: High HDL-cholesterol (negative risk factor for CHD) HDL-cholesterol is affected by a number of factors, e.g. smoking, exercise, hormones, sex and age. Performed By: #### L 500.4100 ####[facility] [address] [place], [place], [phone] Cholesterol in LDL [Mass/Vol] 54 mg/dL Normal [facility] Comment on above: Result Comment: Bord qnloab=838-609 mg/dL Higher Eyla=344 mg/dL or greater Performed By: #### L 500.4100 ####[facility] [address] [place], [place], [phone] Cholesterol in VLDL [Mass/Vol] 39 mg/dL Normal 5-40 [facility] Comment on above: Performed By: #### L 500.4100 ####[facility] [address] [place], [place], [phone] Triglyceride [Mass/Vol] 194 mg/dL Normal [facility] Comment on above: Result Comment: The drugs N-Acetylcysteine and Metamizole may falsely depress this assay. Normal range: <150 mg/dL Borderline High: 150-199 mg/dL High: 200-499 mg/dL Very High: >500 mg/dL Performed By: #### L 500.4100 ####[facility] [address] [place], [place], [phone] Screening total cholesterol/ high density lipoprotein (HDL) cholesterol ratioOrdered By: Temo Rodriguez on 09-23-2024 Cholesterol.total/Cholest eliceo in HDL [Mass ratio] 3.39 {ratio} [facility] Serum or plasma cholesterol in HDL measurement (mass/volume)Ordered By: Temo Rodriguez on 09-23-2024 Cholesterol in HDL [Mass/Vol] 39 mg/dL Low >40 [facility] Comment on above: National Cholesterol Education Program (NCEP) guidelines:<40 mg/dL: Low HDL-cholesterol (major risk factor for CHD)>= 60 mg/dL: High HDL-cholesterol (negative risk factor for CHD)HDL-cholesterol is affected by a number of factors, e.g. smoking, exercise, hormones, sex and age. Serum or plasma cholesterol measurement (mass/volume)Ordered By: Temo Rodriguez on 09-23-2024 Cholesterol [Mass/Vol] 131 mg/dL <201 [facility] Comment on above: Cholesterol level, D esirable <200 mg/dLBorderline high cholesterol 200-239 mg/dLHigh cholesterol >=240 mg/dLRecommendations of the NCEP Adult Treatment Panel for the following risk-cutoff thresholds for the [place] population. Triglycerides measurementOrd ered By: Temo Rodriguez on 09-23-2024 Triglyceride [Mass/Vol] 194 mg/dL <199 [facility] Comment on above: The drugs N-Acetylcy steine and Metamizole may falsely depress this assay. Normal range: <150 mg/dLBorderline High: 150-199 mg/dLHigh: 200-499 mg/dLVery High: >500 mg/dL Rubeola IgG Abon 08-27-2024 RUBEOLA Ab, IgG > 300.0 Normal Immune >16.4 [facility] Comment on above: Result Comment: Nega tive <13.5 Equivocal 13.5 - 16.4 Positive >16.4 Presence of antibodies to Rubeola is presumptive evidence of immunity except when acute infection is suspected. Performed at: [facility] LabRichard Ville [id number] Refrigerator Repair Technician: Jhonny Mack PhD, Phone: [phone] Performed By: #### L 3104.4217, L100.0100 #### [facility] [address], [place], [id number] 12 Lead EKG performed [place] [facility] [place] on 08-26-2024 12 Lead EKG performed by [place] [id number] [facility] [place] [address] 12 Lead EKG performed by [facility] 08/26/24 0900 MR#: [id number] Acct: [id number] Name: ROBERT LIPSCOMB JrMichael Rep #: [id number] : 1955 68 From: Richardson Ivy DIRECTOR OF ADVERTISING SALES DIRECTOR OF ADVERTISING SALES-C Attending Dr: RICHARD SladeC Status: DEP AMB Ordering Dr: Richardson Ivy NP DIRECTOR OF ADVERTISING SALES-C Date: 08/26/24 Location: [facility] Sex: M C Admitted: [facility]12 Lead EKG performed by [facility] ECG Report Interpretation ------Sinus Rhythm -Right bundle branch block with left axis -bifascicular block. ABNORMAL Electronically signed on 08/27/2024 at 08:16 by Hadley [employer] Software Version [id number] 08/27/24817 Date Richardson Ivy NP DIRECTOR OF ADVERTISING SALES-C CC: Dr. Temo Rodriguez, DO Date Dictated: 08/26/24899 Date Transcribed: 08/26/24899 Business Services Clerk: ARSH Signed Normal [facility] Absolute lymphocyte countOrd ered By: Temo Rodriguez on 08-26-2024 Lymphocytes Auto (Unsp spec) [#/Vol] 1.69 10*3/uL 0.83-4.51 [facility] Absolute neutrophil countOrd ered By: Temo Rodriguez on 08-26-2024 Neutrophils (Bld) [#/Vol] 6.2 10*3/uL 2.0-7.7 [facility] Automated lymphocyte count a s percentage of total leukocytesOrdered By: Temo Rodriguez on 08-26-2024 Lymphocytes/100 WBC Auto (Unsp spec) 19.1 % 19-41 [facility] Basophil percentageOrdered B y: Temo Rodriguez on 08-26-2024 Basophils/100 WBC (Bld) 0.6 % 0-1 [facility] CBC W/Diff, Automatedon Absolute Lymph 1.69 X10 3/uL Normal 0.83-4.51 [facility] Comment on above: Performed By: #### L 3100.3300, L100.0100 #### [facility] [address] [place], [address] Absolute Neut 6.2 X10 3/uL Normal 2.0-7.7 [facility] Comment on above: Performed By: #### L 3100.3300, L100.0100 #### [facility] [address] [place], [address] Basophils/100 WBC (Bld) 0.6 % Normal 0-1 [facility] Comment on above: Performed By: #### L 3100.3300, L100.0100 #### [facility] [address] [place], [address] Eosinophils/100 WBC (Bld) 2.6 % Normal 0-5 [facility] Comment on above: Performed By: #### L 3100.3300, L100.0100 #### [facility] [address] [place], [address] Erythrocyte distribution width (RBC) [Ratio] 13.0 % Normal 11.6-14.6 [facility] Comment on above: Performed By: #### L 3100.3300, L100.0100 #### [facility] [address] [place], [address] Hematocrit (Bld) [Volume fraction] 46.1 % Normal 40-54 [facility] Comment on above: Performed By: #### L 3100.3300, L100.0100 #### [facility] [address] [place], [address] Hemoglobin (Bld) [Mass/Vol] 15.0 g/dL Normal 13.0-16.5 [facility] Comment on above: Performed By: #### L 3100.3300, L100.0100 #### [facility] [address] [place], [address] IG% 0.600 Normal 0.0-0.9 [facility] Comment on above: Result Comment: IG% - Immature Granulocytes (promyelocytes, myelocytes and metamyelocytes) > 1% indicates that a LEFT SHIFT is Present. Performed By: #### L 3100.3300, L100.0100 #### [facility] [address] [place], [address] Lymphocytes/100 WBC (Bld) 19.1 % Normal 19-41 [facility] Comment on above: Performed By: #### L 3100.3300, L100.0100 #### [facility] [address] [place], [address] MCH (RBC) [Entitic mass] 29.0 pg Normal 27.0-32.0 [facility] Comment on above: Performed By: #### L 3100.3300, L100.0100 #### [facility] [address] [place], [address] MCHC (RBC) [Mass/Vol] 32.5 g/dL Normal 32-36 [facility] Comment on above: Performed By: #### L 3100.3300, L100.0100 #### [facility] [address] [place], [address] MCV (RBC) [Entitic vol] 89.2 fL Normal 80-94 [facility] Comment on above: Performed By: #### L 3100.3300, L100.0100 #### [facility] [address] [place], [address] Monocytes/100 WBC (Bld) 7.2 % Normal 0-10 [facility] Comment on above: Performed By: #### L 3100.3300, L100.0100 #### [facility] [address] [place], [address] Neutrophils/100 WBC (Bld) 69.9 % Normal 47-70 [facility] Comment on above: Performed By: #### L 3100.3300, L100.0100 #### [facility] [address] [place], [address] Nucleated RBC (Bld) [#/Vol] 0 10*3/uL Normal 0-5 [facility] Comment on above: Performed By: #### L 3100.3300, L100.0100 #### [facility] [address] [place], [address] Platelet mean volume (Bld) [Entitic vol] 9.7 fL Normal 6.2-12.0 [facility] Comment on above: Performed By: #### L 3100.3300, L100.0100 #### [facility] [address] [place], [address] Platelets (Bld) [#/Vol] 231 10*3/uL Normal 150-450 [facility] Comment on above: Performed By: #### L 3100.3300, L100.0100 #### [facility] [address] [place], [address] RBC (Bld) [#/Vol] 5.17 10*6/uL Normal 4.6-6.2 [facility] Comment on above: Performed By: #### L 3100.3300, L100.0100 #### [facility] [address] [place], [address] RDW SD 42.5 fl Normal 35.1-43.9 [facility] Comment on above: Performed By: #### L 3100.3300, L100.0100 #### [facility] [address] [place], [address] WBC (Bld) [#/Vol] 8.9 10*3/uL Normal 4.4-11.0 [facility] Comment on above: Performed By: #### L 3100.3300, L100.0100 #### [facility] [address] [place], [address] Cardiology Visit Reporton Cardiology Visit Report [facility] [address] [place] [address] OFFICE VISIT Date of Service: 08/26/24 MR#: [id number] Acct: [id number] Name: ROBERT LIPSCOMB Jr. Rep #: : 1955 Provider: NATASHA malagon Age/Sex: 68/M Location: [facility] Status: Signed HPI HPI History of Present Illness Details: ROBERT LIPSCOMB, is a 68 M who presents to the office today for a follow up visit. He had a history of previous inferior myocardial infarction who has previously been following up at the [facility]. He has history of coronary artery disease status post drug-eluting stent to RCA in 2004. He underwent surveillance stress test on 01/25/2023 that was abnormal. He proceeded with heart cathetization 02/12/2023 that showed ostial LAD calcified 80%, mid LAD at 50-60% stenosis, mid RCA with 80% stenosis, proximal OM 2 at 60% stenosis, and ostial OM 2 at 90% stenosis and a small 1.5 mm vessel. He had an echocardiogram evaluation 03/13/2023 that showed ejection fraction of 65%, mildly enlarged left atrium, and hypokinetic RV apex. He was referred to cardiothoracic team at [facility] and underwent CABG x3 with PIERSON to LAD, SVG to OM, and SVG to RPDA on 03/21/[address] Childress. He also has a history of right bundle branch block, hypertension, hyperlipidemia, anemia, and diabetes. He denies chest, arm, jaw, or neck discomfort. He denies palpitations. He denies bilateral lower extremity edema. He denies claudication. He acknowledges shortness of breath with activity that resolves easily with rest. He denies shortness of breath at rest, orthopnea, or PND. He denies chronic cough. He denies significant, sudden weight gain. He states occasional lightheadedness. He denies dizziness, near-syncope, or syncope. He denies blood in urine, blood in stool, or epistaxis. He denies fever with chills. He denies myalgia. He states fatigue that is improving. His exercise level has remained stable. Intake Vital Signs 01/28/24 08:32 06/05/24 16:39 08/26/24 09:02 Height 5 ft 10 in 5 ft 10 in 5 ft 10 in Weight: 296 lb BMI 42.5 BP 136/81 H Blood Pressure Location Lt brachial Position Sitting Respiration 18 Pulse 79 Pulse Source NIBP Intake Visit Reasons: 6-9 M FU EKG Gameroom Technician Required: No Is patient in pain?: No Allergies amoxicillin (From Augmentin) Allergy (Severe, Verified 08/26/24 09:11) Unknown clavulanic acid (From Augmentin) Allergy (Severe, Verified 08/26/24 09:11) Unknown atorvastatin (From Lipitor) Allergy (Verified 08/26/24 09:11) Pain in joints metformin (From Glucophage) Allergy (Verified 08/26/24 09:11) Rash pollen extracts Allergy (Verified 08/26/24 09:11) Other Medications ???Medication ???Instructions ???Recorded ???Confirmed ???Type hozkcbuv-xul-pqqas acid 0.4 1 tab PO QAM 06/06/17 08/26/24 His tory mg-lycopene 300 mcg-lutein 250 mcg tablet (Centrum Silver) blood sugar diagnostic (Accu-Chek #180 ea 08/10/18 06/05/24 Rx Lisa Plus test strips) blood-glucose meter (Accu-Chek #1 ea 08/10/18 06/05/24 Rx Lisa Plus Meter) lancets (Accu-Chek Multiclix #60 ea 08/10/18 06/05/24 Rx Lancet) acetaminophen 500 mg tablet 500 mg PO Q6H PRN 04/18/23 5 History (Tylenol Extra Strength) aspirin 81 mg tablet,delayed 81 mg PO QDAY 04/18/23 08/26/24 Hi story release (Adult Aspirin Regimen) Prevagen 1 cap PO DAILY 06/10/23 08/26/24 H istory atenolol 50 mg tablet 50 mg PO QDAY #90 tabs 11/25/23 Rx rosuvastatin 20 mg tablet 20 mg PO DAILY #90 tabs 11/25/23 0 08/26/24 Rx pen needle, diabetic 32 gauge x #350 ea 04/20/24 06/05/24 Rx (BD Ultra-Fine Kiana Pen Needle) icosapent ethyl 1 gram capsule 2 g (2 x 1 gram) PO BID #360 caps 06/03/24 08/26/24 Rx (Vascepa) semaglutide 2 mg/dose (8 mg/3 mL) 2 mg (0.75 mL) subcut QWEEK #3 mL 07/09/24 08/26/24 Rx subcutaneous pen injector (Ozempic) fluticasone propionate 50 1 spray intranasal DAILY PRN 08/2608/26/24 History mcg/actuation nasal spray,suspension (Flonase Allergy Relief) insulin aspart U-100 100 unit/mL 26 unit subcut TID 08/26/24 History (3 mL) subcutaneous pen (Novolog FlexPen U-100 Insulin aspart) insulin glargine 100 unit/mL (3 47 unit subcut DAILY 08/26/24 His tory mL) subcutaneous pen (Lantus Solostar U-100 Insulin) nitroglycerin 0.4 mg sublingual 0.4 mg sublingual Q5M PRN 08/26/24 08/26/24 Rx tablet (Nitrostat) Cardiac/Chest Pain #25 tabs polyethylene glycol 3350 17 17 g PO QDAY 08/26/24 08/26/24 His tory gram/dose oral powder (Miralax) Ejection fraction %: 65 Have you fallen in the past year?: No [facility] Medical History URI (upper respiratory infection) Lab test negativ (more content not included)... Normal [facility] Eosinophil percentageOrdered By: Temo Rodriguez on 08-26-2024 Eosinophils/100 WBC (Bld) 2.6 % 0-5 [facility] Erythrocyte distribution wid th ratioOrdered By: Temo Rodriguez on 08-26-2024 Erythrocyte distribution width (RBC) [Ratio] 13.0 % 11.6-14.6 [facility] Erythrocyte distribution wid th standard deviationOrdered By: Temo Rodriguez on 08-26-2024 Erythrocyte distribution width (RBC) [Entitic vol] 42.5 fL 35.1-43.9 [facility] Erythrocyte distribution width (RBC) [Ratio] 42.5 fl 35.1-43.9 [facility] Hematocrit Auto (Bld) [Volum e fraction]Ordered By: Temo Rodriguez on 08-26-2024 Hematocrit (Bld) [Volume fraction] 46.1 % 40-54 [facility] Hemoglobin measurementOrdere d By: Temo Rodriguez on 03-05-2025 Hemoglobin (Bld) [Mass/Vol] 15.0 g/dL 13.0-16.5 [facility] Immature granulocytes/100 WB C Auto (Bld)Ordered By: Temo Rodriguez on 08-26-2024 Immature granulocytes/100 WBC (Bld) 0.600 % 0.0-0.9 [facility] Comment on above: IG% - Immature Granu locytes (promyelocytes, myelocytes and metamyelocytes) > 1% indicates that a LEFT SHIFT is Present. L/S Spine Min 4 Viewson L/S Spine Min 4 Views [facility] Imaging Services [address] [place] [address] L/S Spine Min 4 Views MR#: [id number] Acct: [id number] Name: ROBERT LIPSCOMB Jr. Rep #: [id number] : 1955 M 68 From: Gianni Coulter MD PCP: Dr. Temo Rodriguez DO Status: REG CLI Study: L/S Spine Min 4 Views Date of Exam: 08/26/24 Exam# [id number] Ordering Dr: Temo Rodriguez DO PROCEDURE: L/S SPINE MIN 4 VIEWS REASON FOR EXAM: Low back pain, unspecified TECHNIQUE: 6 views of the lumbar spine COMPARISON: None. FINDINGS: Normal vertebral heights. No evidence of fracture. Advanced multilevel disc space narrowing with endplate osteophytes. Moderate facet arthropathy. Normal alignment. No spondylolisthesis. RAD/L/S Spine Min 4 Views IMPRESSION: Moderate degenerative changes in the lumbar spine with no acute osseous abnormality. Reading Location: [facility] CC: Dr. Temo Rodriguez DO Business Services Clerk: Signed Normal [facility] Lymphocytes Auto (Unsp spec) [#/Vol]Ordered By: Temo Rodriguez on 08-26-2024 Lymphocytes (Bld) [#/Vol] 1.69 10*3/uL 0.83-4.5 1 [facility] Lymphocytes/100 WBC Auto (Un sp spec)Ordered By: Temo Rodriguez on 08-26-2024 Lymphocytes/100 WBC (Bld) 19.1 % 19-41 [facility] MCV (mean corpuscular volume ) determinationOrdered By: Temo Rodriguez on 08-26-2024 MCV (RBC) [Entitic vol] 89.2 fL 80-94 [facility] MeV IgG IA Qn (S)Ordered By: Temo Rodriguez on 08-26-2024 Rubeola (Measles) IgG Antibody > 300.0 AU/mL Immune >16.4 [facility] Comment on above: Negative <13.5 Equiv ocal 13.5 - 16.4 Positive >16.4Presence of antibodies to Rubeola is presumptive evidenceof immunity except when acute infection is suspected.Performed at: [facility] [id number] Director: Jhonny Mack PhD, Phone: [phone] Mean corpuscular hemoglobin (MCH) determinationOrdered By: Temo Rodriguez on 08-26-2024 MCH (RBC) [Entitic mass] 29.0 pg 27.0-32.0 [facility] Mean corpuscular hemoglobin concentration (MCHC) determinationOrdered By: Temo Rodriguez on 08-26-2024 MCHC (RBC) [Mass/Vol] 32.5 g/dL 32-36 [facility] Mean platelet volume determi nationOrdered By: Temo Rodriguez on 08-26-2024 Platelet mean volume (Bld) [Entitic vol] 9.7 fL 6.2-12.0 [facility] Monocyte percentageOrdered B y: Temo Rodriguez on 08-26-2024 Monocytes/100 WBC (Bld) 7.2 % 0-10 [facility] Neutrophil percentageOrdered By: Temo Rodriguez on 08-26-2024 Neutrophils/100 WBC (Bld) 69.9 % 47-70 [facility] Nucleated red blood cell per centageOrdered By: Temo Rodriguez on 08-26-2024 Nucleated RBC/100 WBC (Bld) [Ratio] 0 % 0-5 [facility] Platelet countOrdered By: Ashley Rodriguez on 08-26-2024 Platelets (Bld) [#/Vol] 231 10*3/uL 150-450 [facility] RBC Auto (Bld) [#/Vol]Ordere d By: Temo Rodriguez on 08-26-2024 RBC (Bld) [#/Vol] 5.17 10*6/uL 4.6-6.2 [facility] Serum measles virus IgG anti body assay by immunoassay (units/volume)Ordered By: Temo Rodriguez on 08-26-2024 MeV IgG IA Qn (S) > 300.0 AU/mL Immune >16.4 [facility] Comment on above: Negative <13.5 Equiv ocal 13.5 - 16.4 Positive >16.4Presence of antibodies to Rubeola is presumptive evidenceof immunity except when acute infection is suspected.Performed at: - [facility] [id number] Director: Jhonny Mack PhD, Phone: [phone] White blood cell (WBC) count Ordered By: Temo Rodriguez on 08-26-2024 WBC (Bld) [#/Vol] 8.9 10*3/uL 4.4-11.0 [facility] BUN/creatinine ratioOrdered By: Temo Rodriguez on 08-21-2024 Urea nitrogen/Creatinine [Mass ratio] 15.6 mg/mg 04-12 [facility] Basic Metabolic Profile (BMP )on 08-21-2024 Anion gap [Moles/Vol] 11 mmol/L Normal 11-05 [facility] Comment on above: Order Comment: PT RE FUSED TO LET ME POKE ANYWHERE OTHER THEN 1 SPOT ON THE LEFT ARM. WHEN THE BLOOD WAS FLOWING PT REFUSED TO LET ME TAKE THE TOURNIQUET OFF. PT KEPT MAKING COMMENTS TO ME ABOUT DYING AND TO MAKE SURE IM IN THE GROUND... ONCE I TOLD PT THEY WERE GOOD TO GO AND TO HAVE A GREAT DAY PT SAT IN MY ROOM STARING AT ME, THEN TOLF PT THEY WERE OKAY TO LEAVE AGAIN. HE FINALLY GOT UP AND LEFT AFTER I STARTED CLEANING THE COUNTERS. Performed By: #### L 500.4100, L500.2500 #### [facility] [address] [place], [address] BUN/CRE 15.6 RATIO Normal 04-12 [facility] Comment on above: Order Comment: PT RE FUSED TO LET ME POKE ANYWHERE OTHER THEN 1 SPOT ON THE LEFT ARM. WHEN THE BLOOD WAS FLOWING PT REFUSED TO LET ME TAKE THE TOURNIQUET OFF. PT KEPT MAKING COMMENTS TO ME ABOUT DYING AND TO MAKE SURE IM IN THE GROUND... ONCE I TOLD PT THEY WERE GOOD TO GO AND TO HAVE A GREAT DAY PT SAT IN MY ROOM STARING AT ME, THEN TOLF PT THEY WERE OKAY TO LEAVE AGAIN. HE FINALLY GOT UP AND LEFT AFTER I STARTED CLEANING THE COUNTERS. Performed By: #### L 500.4100, L500.2500 #### [facility] [address] [place], [address] Calcium [Mass/Vol] 9.1 mg/dL Normal 7.6-11.0 [facility] Comment on above: Order Comment: PT RE FUSED TO LET ME POKE ANYWHERE OTHER THEN 1 SPOT ON THE LEFT ARM. WHEN THE BLOOD WAS FLOWING PT REFUSED TO LET ME TAKE THE TOURNIQUET OFF. PT KEPT MAKING COMMENTS TO ME ABOUT DYING AND TO MAKE SURE IM IN THE GROUND... ONCE I TOLD PT THEY WERE GOOD TO GO AND TO HAVE A GREAT DAY PT SAT IN MY ROOM STARING AT ME, THEN TOLF PT THEY WERE OKAY TO LEAVE AGAIN. HE FINALLY GOT UP AND LEFT AFTER I STARTED CLEANING THE COUNTERS. Performed By: #### L 500.4100, L500.2500 #### [facility] [address] [place], [address] Chloride [Moles/Vol] 104 mmol/L Normal 96-108 [facility] Comment on above: Order Comment: PT RE FUSED TO LET ME POKE ANYWHERE OTHER THEN 1 SPOT ON THE LEFT ARM. WHEN THE BLOOD WAS FLOWING PT REFUSED TO LET ME TAKE THE TOURNIQUET OFF. PT KEPT MAKING COMMENTS TO ME ABOUT DYING AND TO MAKE SURE IM IN THE GROUND... ONCE I TOLD PT THEY WERE GOOD TO GO AND TO HAVE A GREAT DAY PT SAT IN MY ROOM STARING AT ME, THEN TOLF PT THEY WERE OKAY TO LEAVE AGAIN. HE FINALLY GOT UP AND LEFT AFTER I STARTED CLEANING THE COUNTERS. Performed By: #### L 500.4100, L500.2500 #### [facility] [address] [place], [place], [id number] CO2 [Moles/Vol] 23.3 mmol/L Normal 22.0-29.0 [facility] Comment on above: Order Comment: PT RE FUSED TO LET ME POKE ANYWHERE OTHER THEN 1 SPOT ON THE LEFT ARM. WHEN THE BLOOD WAS FLOWING PT REFUSED TO LET ME TAKE THE TOURNIQUET OFF. PT KEPT MAKING COMMENTS TO ME ABOUT DYING AND TO MAKE SURE IM IN THE GROUND... ONCE I TOLD PT THEY WERE GOOD TO GO AND TO HAVE A GREAT DAY PT SAT IN MY ROOM STARING AT ME, THEN TOLF PT THEY WERE OKAY TO LEAVE AGAIN. HE FINALLY GOT UP AND LEFT AFTER I STARTED CLEANING THE COUNTERS. Performed By: #### L 500.4100, L500.2500 #### [facility] [address] [place], [place], [phone]) Creatinine [Mass/Vol] 1.17 mg/dL Normal 0.70-1.20 [facility] Comment on above: Order Comment: PT RE FUSED TO LET ME POKE ANYWHERE OTHER THEN 1 SPOT ON THE LEFT ARM. WHEN THE BLOOD WAS FLOWING PT REFUSED TO LET ME TAKE THE TOURNIQUET OFF. PT KEPT MAKING COMMENTS TO ME ABOUT DYING AND TO MAKE SURE IM IN THE GROUND... ONCE I TOLD PT THEY WERE GOOD TO GO AND TO HAVE A GREAT DAY PT SAT IN MY ROOM STARING AT ME, THEN TOLF PT THEY WERE OKAY TO LEAVE AGAIN. HE FINALLY GOT UP AND LEFT AFTER I STARTED CLEANING THE COUNTERS. Performed By: #### L 500.4100, L500.2500 #### [facility] [address] [place], [place], [phone] GFR/1.73 sq M.predicted among non-blacks MDRD (S/P/Bld) [Vol rate/Area] 67 mL/min/{1.73_m2} Normal >60 [facility] Comment on above: Order Comment: PT RE FUSED TO LET ME POKE ANYWHERE OTHER THEN 1 SPOT ON THE LEFT ARM. WHEN THE BLOOD WAS FLOWING PT REFUSED TO LET ME TAKE THE TOURNIQUET OFF. PT KEPT MAKING COMMENTS TO ME ABOUT DYING AND TO MAKE SURE IM IN THE GROUND... ONCE I TOLD PT THEY WERE GOOD TO GO AND TO HAVE A GREAT DAY PT SAT IN MY ROOM STARING AT ME, THEN TOLF PT THEY WERE OKAY TO LEAVE AGAIN. HE FINALLY GOT UP AND LEFT AFTER I STARTED CLEANING THE COUNTERS. Result Comment: mL/m in/1.73m2 CKD-EPI Creatinine Equation (2020) Performed By: #### L 500.4100, L500.2500 #### [facility] [address] [place], [address] Glucose [Mass/Vol] 160 mg/dL High 70-99 [facility] Comment on above: Order Comment: PT RE FUSED TO LET ME POKE ANYWHERE OTHER THEN 1 SPOT ON THE LEFT ARM. WHEN THE BLOOD WAS FLOWING PT REFUSED TO LET ME TAKE THE TOURNIQUET OFF. PT KEPT MAKING COMMENTS TO ME ABOUT DYING AND TO MAKE SURE IM IN THE GROUND... ONCE I TOLD PT THEY WERE GOOD TO GO AND TO HAVE A GREAT DAY PT SAT IN MY ROOM STARING AT ME, THEN TOLF PT THEY WERE OKAY TO LEAVE AGAIN. HE FINALLY GOT UP AND LEFT AFTER I STARTED CLEANING THE COUNTERS. Performed By: #### L 500.4100, L500.2500 #### [facility] [address] [place], [address] Potassium [Moles/Vol] 5.2 mmol/L High 3.3-5.1 [facility] Comment on above: Order Comment: PT RE FUSED TO LET ME POKE ANYWHERE OTHER THEN 1 SPOT ON THE LEFT ARM. WHEN THE BLOOD WAS FLOWING PT REFUSED TO LET ME TAKE THE TOURNIQUET OFF. PT KEPT MAKING COMMENTS TO ME ABOUT DYING AND TO MAKE SURE IM IN THE GROUND... ONCE I TOLD PT THEY WERE GOOD TO GO AND TO HAVE A GREAT DAY PT SAT IN MY ROOM STARING AT ME, THEN TOLF PT THEY WERE OKAY TO LEAVE AGAIN. HE FINALLY GOT UP AND LEFT AFTER I STARTED CLEANING THE COUNTERS. Result Comment: Hemo lysis present, Results??could be affected. ?? Performed By: #### L 500.4100, L500.2500 #### [facility] [address] [place], [address] Sodium [Moles/Vol] 138 mmol/L Normal 133-145 [facility] Comment on above: Order Comment: PT RE FUSED TO LET ME POKE ANYWHERE OTHER THEN 1 SPOT ON THE LEFT ARM. WHEN THE BLOOD WAS FLOWING PT REFUSED TO LET ME TAKE THE TOURNIQUET OFF. PT KEPT MAKING COMMENTS TO ME ABOUT DYING AND TO MAKE SURE IM IN THE GROUND... ONCE I TOLD PT THEY WERE GOOD TO GO AND TO HAVE A GREAT DAY PT SAT IN MY ROOM STARING AT ME, THEN TOLF PT THEY WERE OKAY TO LEAVE AGAIN. HE FINALLY GOT UP AND LEFT AFTER I STARTED CLEANING THE COUNTERS. Performed By: #### L 500.4100, L500.2500 #### [facility] [address] [place], [address] Urea nitrogen [Mass/Vol] 18 mg/dL Normal 4-19 [facility] Comment on above: Order Comment: PT RE FUSED TO LET ME POKE ANYWHERE OTHER THEN 1 SPOT ON THE LEFT ARM. WHEN THE BLOOD WAS FLOWING PT REFUSED TO LET ME TAKE THE TOURNIQUET OFF. PT KEPT MAKING COMMENTS TO ME ABOUT DYING AND TO MAKE SURE IM IN THE GROUND... ONCE I TOLD PT THEY WERE GOOD TO GO AND TO HAVE A GREAT DAY PT SAT IN MY ROOM STARING AT ME, THEN TOLF PT THEY WERE OKAY TO LEAVE AGAIN. HE FINALLY GOT UP AND LEFT AFTER I STARTED CLEANING THE COUNTERS. Performed By: #### L 500.4100, L500.2500 #### [facility] [address] [place], [place], [id number] Calculated very low density lipoprotein (VLDL) cholesterol measurementOrdered By: Temo Rodriguez on 08-21-2024 Calculated very low density lipoprotein (VLDL) cholesterol measurement 41 mg/dL High 5-40 [facility] VLDL Cholesterol 41 mg/dL High 5-40 [facility] Carbon dioxide measurementOr dered By: eTmo Rodriguez on 08-21-2024 CO2 [Moles/Vol] 23.3 mmol/L 22.0-29.0 [facility] Chloride measurementOrdered By: Temo Rodriguez on 08-21-2024 Chloride [Moles/Vol] 104 mmol/L 96-108 [facility] GFR/1.73 sq M.predicted robby g non-blacks MDRD (S/P/Bld) [Vol rate/Area]Ordered By: Temo Rodriguez on 08-21-2024 Estimated GFR (MDRD) Non-Af Amer 67 >60 [facility] Comment on above: mL/min/1.73m2 CKD-EP I Creatinine Equation (2020) Glomerular filtration rate ( GFR) estimation/1.73 sq m using serum, plasma, or whole bOrdered By: Temo Rodriguez on 08-21-2024 GFR/1.73 sq M.predicted among non-blacks MDRD (S/P/Bld) [Vol rate/Area] 67 mL/min/{1.73_m2} >60 [facility] Comment on above: mL/min/1.73m2 CKD-EP I Creatinine Equation (2020) LDL calc ser/plasOrdered By: Temo Rodriguez on 08-21-2024 Cholesterol in LDL [Mass/Vol] 45 mg/dL [facility] Comment on above: Lrhepxrzjk=844-357 m g/dL & Higher Hcgv=474 mg/dL or greater LDL Cholesterol, Calculated 45 mg/dL [facility] Comment on above: Tjvotczfdh=460-103 m g/dL & Higher Brdw=321 mg/dL or greater Lipid Profileon 08-21-2024 CHOL:HDL 3.60 Normal [facility] Comment on above: Order Comment: PT RE FUSED TO LET ME POKE ANYWHERE OTHER THEN 1 SPOT ON THE LEFT ARM. WHEN THE BLOOD WAS FLOWING PT REFUSED TO LET ME TAKE THE TOURNIQUET OFF. PT KEPT MAKING COMMENTS TO ME ABOUT DYING AND TO MAKE SURE IM IN THE GROUND... ONCE I TOLD PT THEY WERE GOOD TO GO AND TO HAVE A GREAT DAY PT SAT IN MY ROOM STARING AT ME, THEN TOLF PT THEY WERE OKAY TO LEAVE AGAIN. HE FINALLY GOT UP AND LEFT AFTER I STARTED CLEANING THE COUNTERS. Performed By: #### L 500.4100, L500.2500 #### [facility] [address] [place], [address] Cholesterol [Mass/Vol] 120 mg/dL Normal <=200 [facility] Comment on above: Order Comment: PT RE FUSED TO LET ME POKE ANYWHERE OTHER THEN 1 SPOT ON THE LEFT ARM. WHEN THE BLOOD WAS FLOWING PT REFUSED TO LET ME TAKE THE TOURNIQUET OFF. PT KEPT MAKING COMMENTS TO ME ABOUT DYING AND TO MAKE SURE IM IN THE GROUND... ONCE I TOLD PT THEY WERE GOOD TO GO AND TO HAVE A GREAT DAY PT SAT IN MY ROOM STARING AT ME, THEN TOLF PT THEY WERE OKAY TO LEAVE AGAIN. HE FINALLY GOT UP AND LEFT AFTER I STARTED CLEANING THE COUNTERS. Result Comment: Chol esterol level, Desirable <200 mg/dL Borderline high cholesterol 200-239 mg/dL High cholesterol >=240 mg/dL Recommendations of the NCEP Adult Treatment Panel for the following risk-cutoff thresholds for the [place] population. Performed By: #### L 500.4100, L500.2500 #### [facility] [address] [place], [address] (173) Cholesterol in HDL [Mass/Vol] 33 mg/dL Low [facility] Comment on above: Order Comment: PT RE FUSED TO LET ME POKE ANYWHERE OTHER THEN 1 SPOT ON THE LEFT ARM. WHEN THE BLOOD WAS FLOWING PT REFUSED TO LET ME TAKE THE TOURNIQUET OFF. PT KEPT MAKING COMMENTS TO ME ABOUT DYING AND TO MAKE SURE IM IN THE GROUND... ONCE I TOLD PT THEY WERE GOOD TO GO AND TO HAVE A GREAT DAY PT SAT IN MY ROOM STARING AT ME, THEN TOLF PT THEY WERE OKAY TO LEAVE AGAIN. HE FINALLY GOT UP AND LEFT AFTER I STARTED CLEANING THE COUNTERS. Result Comment: Connie onal Cholesterol Education Program (NCEP) guidelines: <40 mg/dL: Low HDL-cholesterol (major risk factor for CHD) >= 60 mg/dL: High HDL-cholesterol (negative risk factor for CHD) HDL-cholesterol is affected by a number of factors, e.g. smoking, exercise, hormones, sex and age. Performed By: #### L 500.4100, L500.2500 #### [facility] [address] [place], [place], [phone] Cholesterol in LDL [Mass/Vol] 45 mg/dL Normal [facility] Comment on above: Order Comment: PT RE FUSED TO LET ME POKE ANYWHERE OTHER THEN 1 SPOT ON THE LEFT ARM. WHEN THE BLOOD WAS FLOWING PT REFUSED TO LET ME TAKE THE TOURNIQUET OFF. PT KEPT MAKING COMMENTS TO ME ABOUT DYING AND TO MAKE SURE IM IN THE GROUND... ONCE I TOLD PT THEY WERE GOOD TO GO AND TO HAVE A GREAT DAY PT SAT IN MY ROOM STARING AT ME, THEN TOLF PT THEY WERE OKAY TO LEAVE AGAIN. HE FINALLY GOT UP AND LEFT AFTER I STARTED CLEANING THE COUNTERS. Result Comment: Bord vsboca=562-044 mg/dL Higher Rifg=025 mg/dL or greater Performed By: #### L 500.4100, L500.2500 #### [facility] [address] [place], [address] Cholesterol in VLDL [Mass/Vol] 41 mg/dL High 5-40 [facility] Comment on above: Order Comment: PT RE FUSED TO LET ME POKE ANYWHERE OTHER THEN 1 SPOT ON THE LEFT ARM. WHEN THE BLOOD WAS FLOWING PT REFUSED TO LET ME TAKE THE TOURNIQUET OFF. PT KEPT MAKING COMMENTS TO ME ABOUT DYING AND TO MAKE SURE IM IN THE GROUND... ONCE I TOLD PT THEY WERE GOOD TO GO AND TO HAVE A GREAT DAY PT SAT IN MY ROOM STARING AT ME, THEN TOLF PT THEY WERE OKAY TO LEAVE AGAIN. HE FINALLY GOT UP AND LEFT AFTER I STARTED CLEANING THE COUNTERS. Performed By: #### L 500.4100, L500.2500 #### [facility] [address] [place], [address] Triglyceride [Mass/Vol] 207 mg/dL High [facility] Comment on above: Order Comment: PT RE FUSED TO LET ME POKE ANYWHERE OTHER THEN 1 SPOT ON THE LEFT ARM. WHEN THE BLOOD WAS FLOWING PT REFUSED TO LET ME TAKE THE TOURNIQUET OFF. PT KEPT MAKING COMMENTS TO ME ABOUT DYING AND TO MAKE SURE IM IN THE GROUND... ONCE I TOLD PT THEY WERE GOOD TO GO AND TO HAVE A GREAT DAY PT SAT IN MY ROOM STARING AT ME, THEN TOLF PT THEY WERE OKAY TO LEAVE AGAIN. HE FINALLY GOT UP AND LEFT AFTER I STARTED CLEANING THE COUNTERS. Result Comment: The drugs N-Acetylcysteine and Metamizole may falsely depress this assay. Normal range: <150 mg/dL Borderline High: 150-199 mg/dL High: 200-499 mg/dL Very High: >500 mg/dL Performed By: #### L 500.4100, L500.2500 #### [facility] [address] [place], [address] Screening total cholesterol/ high density lipoprotein (HDL) cholesterol ratioOrdered By: Temo Rodriguez on 08-21-2024 Cholesterol.total/Cholest eliceo in HDL [Mass ratio] 3.60 {ratio} [facility] Serum creatinine measurement (mass/volume)Ordered By: Temo Rodriguez on 08-21-2024 Creatinine [Mass/Vol] 1.17 mg/dL 0.70-1.20 [facility] Serum glucose measurement (m ass/volume)Ordered By: Temo Rodriguez on 08-21-2024 Glucose [Mass/Vol] 160 mg/dL High 70-99 [facility] Serum or plasma anion gap de termination (moles/volume)Ordered By: Temo Rodriguez on 08-21-2024 Anion gap [Moles/Vol] 11 mmol/L 5-15 [facility] Serum or plasma calcium zunilda urement (mass/volume)Ordered By: Temo Rodriguez on 08-21-2024 Calcium [Mass/Vol] 9.1 mg/dL 7.6-11.0 [facility] Serum or plasma cholesterol in HDL measurement (mass/volume)Ordered By: Temo Rodriguez on 08-21-2024 Cholesterol in HDL [Mass/Vol] 33 mg/dL Low >40 [facility] Comment on above: National Cholesterol Education Program (NCEP) guidelines:<40 mg/dL: Low HDL-cholesterol (major risk factor for CHD)>= 60 mg/dL: High HDL-cholesterol (negative risk factor for CHD)HDL-cholesterol is affected by a number of factors, e.g. smoking, exercise, hormones, sex and age. Serum or plasma cholesterol measurement (mass/volume)Ordered By: Temo Rodriguez on 08-21-2024 Cholesterol [Mass/Vol] 120 mg/dL <201 [facility] Comment on above: Cholesterol level, D esirable <200 mg/dLBorderline high cholesterol 200-239 mg/dLHigh cholesterol >=240 mg/dLRecommendations of the NCEP Adult Treatment Panel for the following risk-cutoff thresholds for the [place] population. Serum or plasma potassium me asurementOrdered By: Temo Rodriguez on 08-21-2024 Potassium [Moles/Vol] 5.2 mmol/L High 3.3-5.1 [facility] Comment on above: Hemolysis present, R esults could be affected. Serum or plasma sodium measu rement (moles/volume)Ordered By: Temo Rodriguez on 08-21-2024 Sodium [Moles/Vol] 138 mmol/L 133-145 [facility] Serum or plasma urea nitroge n measurement (mass/volume)Ordered By: Temo Rodriguez on 08-21-2024 Urea nitrogen [Mass/Vol] 18 mg/dL 4-19 [facility] Triglycerides measurementOrd ered By: Temo Rodriguez on 08-21-2024 Triglyceride [Mass/Vol] 207 mg/dL High <199 [facility] Comment on above: The drugs N-Acetylcy steine and Metamizole may falsely depress this assay. Normal range: <150 mg/dLBorderline High: 150-199 mg/dLHigh: 200-499 mg/dLVery High: >500 mg/dL Urgent Care Visit Reporton 1 08-06-2023 Urgent Care Visit Report [facility] [address], [address] [place] [address] OFFICE VISIT Date of Service: 06/05/24 MR#: [id number] Acct: [id number] Name: ROBERT LIPSCOMB Jr. Rep #: [id number] : 1955 Provider: LETI Humphries Age/Sex: 68/M Location: [facility] Status: Signed Intake Vital Signs 06/03/24 08:35 06/05/24 16:39 Height 5 ft 10 in 5 ft 10 in Weight: 299 lb BMI 42.9 BP 128/68 H 144/66 H Blood Pressure Location Rt brachial Lt brachial Position Sitting Sitting Respiration 16 Pulse 74 72 Pulse Source Monitor Monitor Temp 98.5 F Temp Source Oral Pulse Oximetry (%) 95 97 Oxygen Delivery Method room air room air Intake Visit Reasons: CUT PINKY ON L FINGER Chief Complaint: left pinky finger laceration Accompanied by: Self Is patient in pain?: Yes Pain scale (1-10): 4 Allergies amoxicillin (From Augmentin) Allergy (Severe, Verified 06/05/24 16:38) Unknown clavulanic acid (From Augmentin) Allergy (Severe, Verified 06/05/24 16:38) Unknown atorvastatin (From Lipitor) Allergy (Verified 06/05/24 16:38) Pain in joints metformin (From Glucophage) Allergy (Verified 06/05/24 16:38) Rash pollen extracts Allergy (Verified 06/05/24 16:38) Other Medications ???Medication ???Instructions ???Recorded ???Confirmed ???Type cssbmwkn-vof-zmqbi acid 0.4 1 tab PO QAM 06/06/17 06/05/24 History mg-lycopene 300 mcg-lutein 250 mcg tablet (Centrum Silver) blood sugar diagnostic (Accu-Chek #180 ea 08/10/18 06/05/24 Rx Lisa Plus test strips) blood-glucose meter (Accu-Chek #1 ea 08/10/18 06/05/24 Rx Lisa Plus Meter) lancets (Accu-Chek Multiclix #60 ea 08/10/18 06/05/24 Rx Lancet) acetaminophen 500 mg tablet 500 mg PO Q6H PRN 04/18/23 06/05/24 History (Tylenol Extra Strength) aspirin 81 mg tablet,delayed 81 mg PO QDAY 04/18/23 06/05/24 History release (Adult Aspirin Regimen) Prevagen 1 cap PO DAILY 06/10/23 06/05/24 History nitroglycerin 0.4 mg sublingual 0.4 mg sublingual Q5M PRN 07/18/23 06/05/24 Rx tablet (Nitrostat) Cardiac/Chest Pain #25 tabs fluticasone propionate 50 1 spray intranasal DAILY 10/17/23 06/05/24 History mcg/actuation nasal spray,suspension (Flonase Allergy Relief) atenolol 50 mg tablet 50 mg PO QDAY #90 tabs 11/25/23 06/05/24 Rx rosuvastatin 20 mg tablet 20 mg PO DAILY #90 tabs 11/25/23 06/05/24 Rx docusate sodium 100 mg capsule 100 mg PO DAILY 01/28/24 06/05/24 History (Colace) insulin aspart U-100 100 unit/mL 20 unit subcut TID 01/28/24 06/05/24 History (3 mL) subcutaneous pen (Novolog FlexPen U-100 Insulin aspart) insulin glargine 100 unit/mL (3 55 unit subcut DAILY 01/28/24 06/05/24 History mL) subcutaneous pen (Lantus Solostar U-100 Insulin) semaglutide 2 mg/dose (8 mg/3 mL) 2 mg (0.75 mL) subcut QWEEK #3 mL 01/30/24 06/05/24 Rx subcutaneous pen injector (Ozempic) pen needle, diabetic 32 gauge x #350 ea 04/20/24 06/05/24 Rx /32 (BD Ultra-Fine Kiana Pen Needle) icosapent ethyl 1 gram capsule 2 g (2 x 1 gram) PO BID #360 caps 06/03/24 06/05/24 Rx (Vascepa) Have you fallen in the past year?: No PFSH Medical History URI (upper respiratory infection) Lab test negative for COVID-19 virus Acute maxillary sinusitis, unspecified Hemorrhoids Family history of malignant neoplasm of colon in father Personal history of colonic polyps Old inferior wall myocardial infarction Essential (primary) hypertension History of testicular cancer Family history of colon cancer in father Right bundle branch block (RBBB) with left anterior fascicular block 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 diabetic retinopathy Obesity due to excess calories Hyperlipidemia Atherosclerosis of coronary artery of [place] heart without angina pectoris Skin cancer Pneumonia Cataracts, bilateral H/O transfusion of whole blood Arthritis Anemia Seasonal allergies Surgical History History of coronary artery bypass surgery (03/21/23) H/O tympanostomy (2020) History of incisional hernia repair History of orchiectomy History of tonsillectomy and adenoidectomy History of appendectomy H/O inguinal hernia repair History of coronary artery stent placement (2004) H/O colonoscopy Family History Mother Cancer pancreatic Father Cancer colon Sister Diabetes CAD (coronary artery disease) Aunt Colon cancer Breast cancer Social History Smoking Status: Never smoker second hand exposure: No alcohol intake: current substance use type: does not use HPI HPI Chief Complaint: left pinky (more content not included)... Normal [facility] Endocrinology Visit Reporton 06-03-2024 Endocrinology Visit Report [facility] [address] [place] [address] OFFICE VISIT Date of Service: 06/03/24 MR#: [id number] Acct: [id number] Name: ROBERT LIPSCOMB Jr. Rep #: [id number] : 1955 Provider: NATASHA ferrera Age/Sex: 68/M [place] [facility] [place]: Signed Intake Vital Signs 01/30/24 08:08 06/03/24 08:35 Height 5 ft 10 in 5 ft 10 in Weight: 291 lb 299 lb BMI 41.7 42.9 BP 130/75 H 128/68 H Blood Pressure Location Lt brachial Rt brachial Position Sitting Sitting Respiration 16 Pulse 71 74 Pulse Source Monitor Monitor Temp 98.2 F Temp Source Temporal Pulse Oximetry (%) 92 95 Oxygen Delivery Method room air room air Intake Visit Reasons: 4 M FU Chief Complaint: Diabetes Is patient in pain?: Yes Allergies amoxicillin (From Augmentin) Allergy (Severe, Verified 01/30/24 08:04) Unknown clavulanic acid (From Augmentin) Allergy (Severe, Verified 01/30/24 08:04) Unknown atorvastatin (From Lipitor) Allergy (Verified 01/30/24 08:04) Pain in joints metformin (From Glucophage) Allergy (Verified 01/30/24 08:04) Rash pollen extracts Allergy (Verified 01/30/24 08:04) Other Medications ???Medication ???Instructions ???Recorded ???Confirmed ???Type ihrxhacz-dsw-tvtuf acid 0.4 1 tab PO QAM 06/06/17 06/03/24 History mg-lycopene 300 mcg-lutein 250 mcg tablet (Centrum Silver) blood sugar diagnostic (Accu-Chek #180 ea 08/10/18 01/30/24 Rx Lisa Plus test strips) blood-glucose meter (Accu-Chek #1 ea 08/10/18 01/30/24 Rx Lisa Plus Meter) lancets (Accu-Chek Multiclix #60 ea 08/10/18 01/30/24 Rx Lancet) acetaminophen 500 mg tablet 500 mg PO Q6H PRN 04/18/23 06/03/24 History (Tylenol Extra Strength) aspirin 81 mg tablet,delayed 81 mg PO QDAY 04/18/23 06/03/24 History release (Adult Aspirin Regimen) Prevagen 1 cap PO DAILY 06/10/23 06/03/24 History nitroglycerin 0.4 mg sublingual 0.4 mg sublingual Q5M PRN 07/18/23 06/03/24 Rx tablet (Nitrostat) Cardiac/Chest Pain #25 tabs fluticasone propionate 50 1 spray intranasal DAILY 10/17/23 06/03/24 History mcg/actuation nasal spray,suspension (Flonase Allergy Relief) atenolol 50 mg tablet 50 mg PO QDAY #90 tabs 11/25/23 06/03/24 Rx rosuvastatin 20 mg tablet 20 mg PO DAILY #90 tabs 11/25/23 06/03/24 Rx docusate sodium 100 mg capsule 100 mg PO DAILY 01/28/24 06/03/24 History (Colace) insulin aspart U-100 100 unit/mL 20 unit subcut TID 01/28/24 06/03/24 History (3 mL) subcutaneous pen (Novolog FlexPen U-100 Insulin aspart) insulin glargine 100 unit/mL (3 55 unit subcut DAILY 01/28/24 06/03/24 History mL) subcutaneous pen (Lantus Solostar U-100 Insulin) semaglutide 2 mg/dose (8 mg/3 mL) 2 mg (0.75 mL) subcut QWEEK #3 mL 01/30/24 06/03/24 Rx subcutaneous pen injector (Ozempic) pen needle, diabetic 32 gauge x #350 ea 04/20/24 06/03/24 Rx 5/32 (BD Ultra-Fine Kiana Pen Needle) icosapent ethyl 1 gram capsule 2 g (2 x 1 gram) PO BID #360 caps 06/03/24 06/03/24 Rx (Vascepa) Have you fallen in the past year?: No [facility] Medical History URI (upper respiratory infection) Lab test negative for COVID-19 virus Acute maxillary sinusitis, unspecified Hemorrhoids Family history of malignant neoplasm of colon in father Personal history of colonic polyps Old inferior wall myocardial infarction Essential (primary) hypertension History of testicular cancer Family history of colon cancer in father Right bundle branch block (RBBB) with left anterior fascicular block 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 diabetic retinopathy Obesity due to excess calories Hyperlipidemia Atherosclerosis of coronary artery of [place] heart without angina pectoris Skin cancer Pneumonia Cataracts, bilateral H/O transfusion of whole blood Arthritis Anemia Seasonal allergies Surgical History History of coronary artery bypass surgery (03/21/23) H/O tympanostomy (2020) History of incisional hernia repair History of orchiectomy History of tonsillectomy and adenoidectomy History of appendectomy H/O inguinal hernia repair History of coronary artery stent placement (2004) H/O colonoscopy Family History Mother Cancer pancreatic Father Cancer colon Sister Diabetes CAD (coronary artery disease) Aunt Colon cancer Breast cancer Social History Smoking Status: Never smoker second hand exposure: No alcohol intake: current substance use type: does not use HPI HPI Chief Complaint: Diabetes Details: ROBERT LIPSCOMB (more content not included)... Normal [facility] - Hematology and Cell countson 06-03-2024 HbA1c (Bld) [Mass fraction] 6.5 % High 4.2-6.3 [facility] CBC W/Diff, Automatedon 03-24 Absolute Lymph 1.27 X10 3/uL Normal 0.83-4.51 [facility] Comment on above: Performed By: #### L 500.2330, L501.9910, L502.0250, L100.0100, L500.4100 #### [facility] [address] [place], [place], [id number] Absolute Neut 6.1 X10 3/uL Normal 2.0-7.7 [facility] Comment on above: Performed By: #### L 500.4050, L501.9910, L502.0250, L100.0100, L500.4100 #### [facility] [address] [place], [address] Basophils/100 WBC (Bld) 0.5 % Normal 0-1 [facility] Comment on above: Performed By: #### L 500.4050, L501.9910, L502.0250, L100.0100, L500.4100 #### [facility] [address] [place], [address] Eosinophils/100 WBC (Bld) 2.5 % Normal 0-5 [facility] Comment on above: Performed By: #### L 500.4050, L501.9910, L502.0250, L100.0100, L500.4100 #### [facility] [address] [place], [address] Erythrocyte distribution width (RBC) [Ratio] 13.2 % Normal 11.6-14.6 [facility] Comment on above: Performed By: #### L 500.4050, L501.9910, L502.0250, L100.0100, L500.4100 #### [facility] [address] [place], [address] Hematocrit (Bld) [Volume fraction] 45.8 % Normal 40-54 [facility] Comment on above: Performed By: #### L 500.4050, L501.9910, L502.0250, L100.0100, L500.4100 #### [facility] [address] [place], [address] Hemoglobin (Bld) [Mass/Vol] 14.3 g/dL Normal 13.0-16.5 [facility] Comment on above: Performed By: #### L 500.4050, L501.9910, L502.0250, L100.0100, L500.4100 #### [facility] [address] [place], [address] IG% 0.400 Normal 0.0-0.9 [facility] Comment on above: Result Comment: IG% - Immature Granulocytes (promyelocytes, myelocytes and metamyelocytes) > 1% indicates that a LEFT SHIFT is Present. Performed By: #### L 500.4050, L501.9910, L502.0250, L100.0100, L500.4100 #### [facility] [address] [place], [address] Lymphocytes/100 WBC (Bld) 15.4 % Low 19-41 [facility] Comment on above: Performed By: #### L 500.4050, L501.9910, L502.0250, L100.0100, L500.4100 #### [facility] [address] [place], [address] MCH (RBC) [Entitic mass] 28.7 pg Normal 27.0-32.0 [facility] Comment on above: Performed By: #### L 500.4050, L501.9910, L502.0250, L100.0100, L500.4100 #### [facility] [address] [place], [address] MCHC (RBC) [Mass/Vol] 31.2 g/dL Low 32-36 [facility] Comment on above: Performed By: #### L 500.4050, L501.9910, L502.0250, L100.0100, L500.4100 #### [facility] [address] [place], [address] MCV (RBC) [Entitic vol] 91.8 fL Normal 80-94 [facility] Comment on above: Performed By: #### L 500.4050, L501.9910, L502.0250, L100.0100, L500.4100 #### [facility] [address] [place], [address] Monocytes/100 WBC (Bld) 7.1 % Normal 0-10 [facility] Comment on above: Performed By: #### L 500.4050, L501.9910, L502.0250, L100.0100, L500.4100 #### [facility] [address] [place], [address] Neutrophils/100 WBC (Bld) 74.1 % High 47-70 [facility] Comment on above: Performed By: #### L 500.4050, L501.9910, L502.0250, L100.0100, L500.4100 #### [facility] [address] [place], [address] Nucleated RBC (Bld) [#/Vol] 0 10*3/uL Normal 0-5 [facility] Comment on above: Performed By: #### L 500.4050, L501.9910, L502.0250, L100.0100, L500.4100 #### [facility] [address] [place], [address] Platelet mean volume (Bld) [Entitic vol] 10.4 fL Normal 6.2-12.0 [facility] Comment on above: Performed By: #### L 500.4050, L501.9910, L502.0250, L100.0100, L500.4100 #### [facility] [address] [place], [address] Platelets (Bld) [#/Vol] 218 10*3/uL Normal 150-450 [facility] Comment on above: Performed By: #### L 500.4050, L501.9910, L502.0250, L100.0100, L500.4100 #### [facility] [address] [place], [address] RBC (Bld) [#/Vol] 4.99 10*6/uL Normal 4.6-6.2 [facility] Comment on above: Performed By: #### L 500.4050, L501.9910, L502.0250, L100.0100, L500.4100 #### [facility] [address] [place], [address] RDW SD 44.6 fl High 35.1-43.9 [facility] Comment on above: Performed By: #### L 500.4050, L501.9910, L502.0250, L100.0100, L500.4100 #### [facility] [address] [place], [address] WBC (Bld) [#/Vol] 8.3 10*3/uL Normal 4.4-11.0 [facility] Comment on above: Performed By: #### L 500.4050, L501.9910, L502.0250, L100.0100, L500.4100 #### [facility] [address] [place], [address] Comprehensive Metabolic [facility] 04-07-2024 Albumin [Mass/Vol] 3.3 g/dL Normal 3.2-5.0 [facility] Comment on above: Performed By: #### L 500.4050, L501.9910, L502.0250, L100.0100, L500.4100 #### [facility] [address] [place], [address] Albumin/Globulin [Mass ratio] 0.9 {ratio} Normal 0.9-2.4 [facility] Comment on above: Performed By: #### L 500.4050, L501.9910, L502.0250, L100.0100, L500.4100 #### [facility] [address] [place], [address] ALK P 87 U/L Normal 45-117 [facility] Comment on above: Performed By: #### L 500.4050, L501.9910, L502.0250, L100.0100, L500.4100 #### [facility] [address] [place], [address] ALT [Catalytic activity/Vol] 27 U/L Normal 16-61 [facility] Comment on above: Performed By: #### L 500.4050, L501.9910, L502.0250, L100.0100, L500.4100 #### [facility] [address] [place], [address] AST [Catalytic activity/Vol] 20 U/L Normal 15-37 [facility] Comment on above: Performed By: #### L 500.4050, L501.9910, L502.0250, L100.0100, L500.4100 #### [facility] [address] [place], [address] Bilirubin [Mass/Vol] 1.10 mg/dL High 0.20-1.00 [facility] Comment on above: Result Comment: For patients on eltrombopag therapy, use of Dimension Evans TBIL is not recommended. Performed By: #### L 500.4050, L501.9910, L502.0250, L100.0100, L500.4100 #### [facility] [address] [place], [address] BUN/CRE 10.7 RATIO Normal 10-20 [facility] Comment on above: Performed By: #### L 500.4050, L501.9910, L502.0250, L100.0100, L500.4100 #### [facility] [address] [place], [address] CA,Total 8.8 mg/dL Normal 8.5-10.1 [facility] Comment on above: Performed By: #### L 500.4050, L501.9910, L502.0250, L100.0100, L500.4100 #### [facility] [address] [place], [address] Chloride [Moles/Vol] 106 mmol/L Normal 98-107 [facility] Comment on above: Performed By: #### L 500.4050, L501.9910, L502.0250, L100.0100, L500.4100 #### [facility] [address] [place], [address] CO2 [Moles/Vol] 27.0 mmol/L Normal 21.0-32.0 [facility] Comment on above: Performed By: #### L 500.4050, L501.9910, L502.0250, L100.0100, L500.4100 #### [facility] [address] [place], [address] Creatinine [Mass/Vol] 1.31 mg/dL High 0.70-1.30 [facility] Comment on above: Result Comment: The validity of the calculated GFR GFRAA in patients over 70 years has not been determined. Clinical correlation is essential. Performed By: #### L 500.4050, L501.9910, L502.0250, L100.0100, L500.4100 #### [facility] [address] [place], [address] EST GFR - AA 70 mL/min Normal >60 [facility] Comment on above: Result Comment: Afri can [place] GFR Calc Performed By: #### L 500.4050, L501.9910, L502.0250, L100.0100, L500.4100 #### [facility] [address] [place], [address] GAP 4 Low 5-15 [facility] Comment on above: Performed By: #### L 500.4050, L501.9910, L502.0250, L100.0100, L500.4100 #### [facility] [address] [place], [address] GFR/1.73 sq M.predicted among non-blacks MDRD (S/P/Bld) [Vol rate/Area] 57 mL/min/{1.73_m2} Low >60 [facility] Comment on above: Result Comment: Non- GFR Calc Performed By: #### L 500.4050, L501.9910, L502.0250, L100.0100, L500.4100 #### [facility] [address] [place], [address] Globulin (S) [Mass/Vol] 3.5 g/dL Normal 2.2-4.2 [facility] Comment on above: Performed By: #### L 500.4050, L501.9910, L502.0250, L100.0100, L500.4100 #### [facility] [address] [place], [address] Glucose [Mass/Vol] 166 mg/dL High 74-106 [facility] Comment on above: Result Comment: Fast ing Glucose result greater than or equal to 126 mg/dL suggests DIABETES MELLITUS per A.D.A. criteria. Performed By: #### L 500.4050, L501.9910, L502.0250, L100.0100, L500.4100 #### [facility] [address] [place], [address] Potassium [Moles/Vol] 4.7 mmol/L Normal 3.5-5.1 [facility] Comment on above: Performed By: #### L 500.4050, L501.9910, L502.0250, L100.0100, L500.4100 #### [facility] [address] [place], [address] Sodium [Moles/Vol] 138 mmol/L Normal 136-145 [facility] Comment on above: Performed By: #### L 500.4050, L501.9910, L502.0250, L100.0100, L500.4100 #### [facility] [address] [place], [address] T PROT 6.8 g/dL Normal 6.4-8.2 [facility] Comment on above: Performed By: #### L 500.4050, L501.9910, L502.0250, L100.0100, L500.4100 #### [facility] [address] [place], [address] Urea nitrogen [Mass/Vol] 14 mg/dL Normal 7-18 [facility] Comment on above: Performed By: #### L 500.4050, L501.9910, L502.0250, L100.0100, L500.4100 #### [facility] [address] [place], [address] Lipid Profileon 04-07-2024 Cholesterol [Mass/Vol] 118 mg/dL Normal 200 [facility] Comment on above: Result Comment: <200 mg/dL Desirable 200-240 mg/dL Borderline >240 mg/dL High Risk Performed By: #### L 500.4050, L501.9910, L502.0250, L100.0100, L500.4100 ####[facility] [address] [place], [address] Cholesterol in HDL [Mass/Vol] 36 mg/dL Low [facility] Comment on above: Result Comment: The drugs N-Acetylcysteine and Metamizole may falsely depress this assay. Reference Range HDL <40 mg/dL Low HDL Cholesterol HDL >or= 60 mg/dL High HDL Cholesterol Performed By: #### L 500.4050, L501.9910, L502.0250, L100.0100, L500.4100 ####[facility] [address] [place], [address] Cholesterol in LDL [Mass/Vol] 39 mg/dL Normal 0-130 [facility] Comment on above: Performed By: #### L 500.4050, L501.9910, L502.0250, L100.0100, L500.4100 ####[facility] [address] [place], [address] Cholesterol in VLDL [Mass/Vol] 43 mg/dL High 5-40 [facility] Comment on above: Performed By: #### L 500.4050, L501.9910, L502.0250, L100.0100, L500.4100 ####[facility] [address] [place], [address] Triglyceride [Mass/Vol] 214 mg/dL High [facility] Comment on above: Result Comment: The drugs N-Acetylcysteine and Metamizole may falsely depress this assay. Serum Triglycerides Reference Interval Normal <150 mg/dL Borderline high 150 - 199 mg/dL High 200 - 499 mg/dL Very High > or = 500 mg/dL Performed By: #### L 500.4050, L501.9910, L502.0250, L100.0100, L500.4100 ####[facility] [address] [place], [address] Microalb:Creat Ratio,Random URon 04-07-2024 Creatinine [Mass/Vol] 170.00 mg/dL Normal NO RAN GE EST. [facility] Comment on above: Performed By: #### L 500.4050, L501.9910, L502.0250, L100.0100, L500.4100 ####[facility] [address] [place], [address] MALB:CRE 11.2 mg/g CRE Normal <30 mg/g CRE [facility] Comment on above: Performed By: #### L 500.4050, L501.9910, L502.0250, L100.0100, L500.4100 ####[facility] [address] [place], [address] MICROALBUMIN,UR 19.0 mg/L Normal NO RANGE EST. [facility] Comment on above: Performed By: #### L 500.4050, L501.9910, L502.0250, L100.0100, L500.4100 ####[facility] [address] [place], [address] PSA,Total - Annual Screenon 04-07-2024 PSA,TOT SCREEN 0.54 ng/mL Normal 0.00-4.00 [facility] Comment on above: Result Comment: This test was performed using the TPSA assay method for the [employer] chemistry system. Values obtained with different assay methods cannot be used interchangably. When changing PSA assays in the course of monitoring a patient, additional sequential testing should be carried out to confirm baseline values. Performed By: #### L 500.4050, L501.9910, L502.0250, L100.0100, L500.4100 ####[facility] [address] [place], [place], [id number] Laboratory - Hematology and Cell countson 10-17-2023 HbA1c (Bld) [Mass fraction] 6.2 % 4.2-6.3 [facility] Absolute lymphocyte countOrd ered By: Temo Rodriguez on 07-15-2023 Lymphocytes Auto (Unsp spec) [#/Vol] 1.84 10*3/uL 0.83-4.51 [facility] Automated lymphocyte count a s percentage of total leukocytesOrdered By: Temo Rodriguez on 07-15-2023 Lymphocytes/100 WBC Auto (Unsp spec) 22.5 % 19-41 [facility] Basophil percentageOrdered B y: Temo Rodriguez on 07-15-2023 Basophils/100 WBC (Bld) 0.5 % 0-1 [facility] Bilirubin [Mass/Vol] 1.00 mg/dL 0.20-1.00 [facility] Comment on above: For patients on eltr ombopag therapy, use of Dimension Evans TBIL is not recommended. Chloride [Moles/Vol] 107 mmol/L 98-107 [facility] Cholesterol [Mass/Vol] 116 mg/dL <200 [facility] Comment on above: <200 mg/dL Desirable 200-240 mg/dL Borderline >240 mg/dL High Risk Eosinophils/100 WBC (Bld) 2.9 % 0-5 [facility] Glucose [Mass/Vol] 149 mg/dL 74-106 [facility] Comment on above: Fasting Glucose resu lt greater than or equal to 126 mg/dL suggests DIABETES MELLITUS per A.D.A. criteria. Hemoglobin (Bld) [Mass/Vol] 13.1 g/dL 13.0-16.5 [facility] Monocytes/100 WBC (Bld) 8.7 % 0-10 [facility] Neutrophils (Bld) [#/Vol] 5.3 10*3/uL 2.0-7.7 [facility] Neutrophils/100 WBC (Bld) 65.3 % 47-70 [facility] Potassium [Moles/Vol] 4.6 mmol/L 3.5-5.1 [facility] Protein [Mass/Vol] 7.0 g/dL 6.4-8.2 [facility] Sodium [Moles/Vol] 139 mmol/L 136-145 [facility] Triglyceride [Mass/Vol] 176 mg/dL <199 [facility] Comment on above: The drugs N-Acetylcy steine and Metamizole may falsely depress this assay.Serum Triglycerides Reference Interval Normal <150 mg/dL Borderline high 150 - 199 mg/dL High 200 - 499 mg/dL Very High > or = 500 mg/dL WBC (Bld) [#/Vol] 8.2 10*3/uL 4.4-11.0 [facility] Determination of erythrocyte mean corpuscular volume (MCV)Ordered By: Temo Rodriguez on 07-15-2023 MCV (RBC) [Entitic vol] 88.8 fL 80-94 [facility] Erythrocyte distribution wid th ratioOrdered By: Temo Rodriguez on 07-15-2023 Erythrocyte distribution width (RBC) [Ratio] 14.2 % 11.6-14.6 [facility] Erythrocyte distribution wid th standard deviationOrdered By: Temo Rodriguez on 07-15-2023 Erythrocyte distribution width (RBC) [Entitic vol] 45.6 fL 35.1-43.9 [facility] Hematocrit Auto (Bld) [Volum e fraction]Ordered By: Temo Rodriguez on 07-15-2023 Hematocrit (Bld) [Volume fraction] 43.8 % 40-54 [facility] High density lipoprotein (HD L) measurementOrdered By: Temo Rodriguez on 07-15-2023 Cholesterol in HDL (Body fld) [Mass/Vol] 35 mg/dL >40 [facility] Comment on above: The drugs N-Acetylcy steine and Metamizole may falsely depress this assay. Reference Range HDL <40 mg/dL Low HDL Cholesterol HDL >or= 60 mg/dL High HDL Cholesterol Immature granulocytes/100 WB C Auto (Bld)Ordered By: Temo Rodriguez on 07-15-2023 Immature granulocytes/100 WBC (Bld) 0.100 % 0.0-0.9 [facility] Comment on above: IG% - Immature Granu locytes (promyelocytes, myelocytes and metamyelocytes) > 1% indicates that a LEFT SHIFT is Present. Laboratory - Chemistry and C hemistry - challengeOrdered By: Temo Rodriguez on 07-15-2023 Albumin/Globulin [Mass ratio] 0.9 {ratio} 0.9-2.4 [facility] ALP [Catalytic activity/Vol] 86 U/L 45-117 [facility] ALT [Catalytic activity/Vol] 24 U/L 16-61 [facility] CO2 [Moles/Vol] 27.0 mmol/L 21.0-32.0 [facility] Globulin (S) [Mass/Vol] 3.7 g/dL 2.2-4.2 [facility] Urea nitrogen/Creatinine [Mass ratio] 12.2 mg/mg 10-20 [facility] Laboratory - Hematology and Cell countsOrdered By: Temo Rodriguez on 07-15-2023 MCH (RBC) [Entitic mass] 26.6 pg 27.0-32.0 [facility] MCHC (RBC) [Mass/Vol] 29.9 g/dL 32-36 [facility] Nucleated RBC/100 WBC (Bld) [Ratio] 0 % 0-5 [facility] Platelets (Bld) [#/Vol] 202 10*3/uL 150-450 [facility] Low density lipoprotein (LDL ) cholesterol measurementOrdered By: Temo Rodriguez on 07-15-2023 Cholesterol in LDL (Body fld) [Moles/Vol] 46 mg/dL 0-130 [facility] No Panel InformationOrdered By: Temo Rodriguez on 07-15-2023 Estimated GFR (MDRD) Amer 75 mL/min >60 [facility] Comment on above: GFR Calc Estimated GFR (MDRD) Non-Af Amer 62 mL/min >60 [facility] Comment on above: Non- GFR Calc Vitamin D 25-Hydroxy 53.7 ng/mL [facility] Comment on above: Vitamin D 25(OH) Sta tus Range Deficiency <20 ng/mL (50nmol/L) Insufficiency 20 - 30 ng/mL (50 - 75 nmol/L) Sufficiency 30 - 100 ng/mL (75 - 250 nmol/L) Toxicity >100 ng/mL (>250 nmol/L) Platelet mean volume Kirk-Ec ker (Bld) [Entitic vol]Ordered By: Temo Rodriguez on 07-15-2023 Platelet mean volume (Bld) [Entitic vol] 10.5 fL 6.2-12.0 [facility] RBC Auto (Bld) [#/Vol]Ordere d By: Temo Rodriguez on 07-15-2023 RBC (Bld) [#/Vol] 4.93 10*6/uL 4.6-6.2 [facility] Serum or plasma calcium zunilda urement (mass/volume)Ordered By: Temo Rodriguez on 07-15-2023 Calcium [Mass/Vol] 9.1 mg/dL 8.5-10.1 [facility] Serum or plasma creatinine m easurement (mass/volume)Ordered By: Temo Rodriguez on 07-15-2023 Creatinine [Mass/Vol] 1.23 mg/dL 0.70-1.30 [facility] Comment on above: The validity of the calculated GFR & GFRAA in patients over 70 years has not been determined. Clinical correlation is essential. Serum or plasma urea nitroge n measurement (mass/volume)Ordered By: Temo Rodriguez on 07-15-2023 Urea nitrogen [Mass/Vol] 15 mg/dL 7-18 [facility] Thin prep Papanicolaou smear with manual screeningOrdered By: Temo Rodriguez on 07-15-2023 Thin prep Papanicolaou smear with manual screening 3.3 g/dL 3.2-5.0 [facility] Thin prep Papanicolaou smear with manual screening 28 U/L 15-37 [facility] Thin prep Papanicolaou smear with manual screening 5 5-15 [facility] Very low density lipoprotein (VLDL) cholesterol measurementOrdered By: Temo Rodriguez on 07-15-2023 Cholesterol in VLDL Calc [Moles/Vol] 35 mg/dL -40 [facility] Whole blood hemoglobin A1c/t otal hemoglobin ratio (mass fraction)Ordered By: Temo Rodriguez on 07-15-2023 HbA1c (Bld) [Mass fraction] 6.6 % 3.8-5.6 [facility] Comment on above: Normal < 5.7 % Predi abetic 5.7 - 6.4 % Diabetic >or= 6.5 % Please note range changes. Basophil percentageOrdered B y: Temo Rodriguez on 05-01-2023 Chloride [Moles/Vol] 106 mmol/L 98-107 [facility] Glucose [Mass/Vol] 135 mg/dL 74-106 [facility] Comment on above: Fasting Glucose resu lt greater than or equal to 126 mg/dL suggests DIABETES MELLITUS per A.D.A. criteria. Potassium [Moles/Vol] 4.6 mmol/L 3.5-5.1 [facility] Sodium [Moles/Vol] 139 mmol/L 136-145 [facility] Laboratory - Chemistry and C hemistry - challengeOrdered By: Temo Rodriguez on 05-01-2023 CO2 [Moles/Vol] 29.0 mmol/L 21.0-32.0 [facility] Urea nitrogen/Creatinine [Mass ratio] 9.4 mg/mg 10-20 [facility] No Panel InformationOrdered By: Temo Rodriguez on 05-01-2023 Urine Microalbumin/Creatinine Ratio 19.4 mg/g CRE <30 [facility] Estimated GFR (MDRD) Amer 72 mL/min >60 [facility] Comment on above: GFR Calc Estimated GFR (MDRD) Non-Af Amer 59 mL/min >60 [facility] Comment on above: Non- GFR Calc Serum or plasma calcium zunilda urement (mass/volume)Ordered By: Temo Rodriguez on 05-01-2023 Calcium [Mass/Vol] 9.1 mg/dL 8.5-10.1 [facility] Serum or plasma creatinine m easurement (mass/volume)Ordered By: Temo Rodriguez on 05-01-2023 Creatinine [Mass/Vol] 1.28 mg/dL 0.70-1.30 [facility] Comment on above: The validity of the calculated GFR & GFRAA in patients over 70 years has not been determined. Clinical correlation is essential. Serum or plasma urea nitroge n measurement (mass/volume)Ordered By: Temo Rodriguez on 05-01-2023 Urea nitrogen [Mass/Vol] 12 mg/dL 7-18 [facility] Thin prep Papanicolaou smear with manual screeningOrdered By: Temo Rodriguez on 05-01-2023 Thin prep Papanicolaou smear with manual screening 27.1 mg/L NO RANGE EST. [facility] Thin prep Papanicolaou smear with manual screening 4 5-15 [facility] Urine creatinine measurement (mass/volume)Ordered By: Temo Rodriguez on 05-01-2023 Creatinine (U) [Mass/Vol] 140.00 mg/dL NO RANGE EST. [facility] Progress Noteon 04-15-2023 Progress Note [facility]: [facility] [address] [address] [facility] [address] [facility] [address] Dept: [phone] Dept Loc: [phone] Visit type: Established patient Reason for Visit: Follow-up Assessment and Plan 1. CAD in [place] artery 2. Mixed hyperlipidemia 3. Hypertension, unspecified type 4. Elevated hemidiaphragm - Follow up with Kentrell Chilel cleared for cardiac rehab - no further follow up in our office - pt is doing well from a surgical perspective - He is on GDMT for CAD with EF preserved Disposition: Patient verbalized understanding of plan and stated they would call if any questions or concerns arise. Treatment Team: PCP: TEMO RODRIGUEZ Subjective HPI: Mr. Robert Lipscomb is a 67 year old male patient with a PMHx that includes CAD s/p SUZETTE tp RCA (2004), RBBB, HTN, HLD, anemia and diabetes (A1c 7.9). He was referred to CT Surgery by Dr. Armendariz. Patient had underwent coronary cath and was found to have severe multivessel CAD. He was seen in the OP setting by Dr. Childress. He consented and was scheduled for CABG on 03/21/23. 03/21/23: Dr. Childress- CABGx3 (PIERSON-LAD, SVG-OM, SVG-RPDA), [facility] Since he was last seen he has continued to improve and has tolerated increasing activity very well. He has lasix PRN for weight gain but should not need this usp. He also has not needed Remeron any longer. He has follow up with Dr Chilel in [place] this week. Review of Systems Constitutional: Negative for diaphoresis, fatigue and fever. Respiratory: Negative for cough, shortness of breath and wheezing. Cardiovascular: Negative for chest pain, palpitations and leg swelling. Gastrointestinal: Negative for abdominal distention, constipation and diarrhea. Skin: Negative for color change, pallor and rash. Allergies Allergen Reactions Amoxicillin Amoxicillin-Pot Clavulanate Atorvastatin Other Metformin Hcl Other Other pollen causes redness of eyes Pollen Extract Cough Clavulanic Acid Rash Metformin Diarrhea and Rash Outpatient Medications Prior to Visit Medication Sig Dispense Refill Apoaequorin (Prevagen) 10 MG capsule aspirin 81 MG chewable tablet Chew 1 tablet (81 mg) daily. 30 tablet 11 atenolol (Tenormin) 50 MG tablet furosemide (Lasix) 40 MG tablet Take 1 tablet (40 mg) by mouth every other day. 15 tablet 0 insulin aspart (NovoLOG FLEXPEN) 100 UNIT/ML pen Inject 14 Units under the skin in the morning and 14 Units at noon and 14 Units in the evening. Inject with meals. 15 mL 2 insulin glargine (Lantus SoloStar) 100 UNIT/ML pen Inject 36 Units under the skin every morning. insulin pen needle 32G x 4 mm [facility] Use as instructed 5 times daily 500 each 1 liraglutide (Victoza) 18 MG/3ML injection mirtazapine (Remeron SolTab) 15 MG disintegrating tablet Take 1 tablet (15 mg) by mouth Nightly. 30 tablet 0 rosuvastatin (Crestor) 20 MG tablet Nightly. No facility-administere d medications prior to visit. Past Medical History: Diagnosis Date Anemia Arthritis Coronary artery disease DM (diabetes mellitus) (HCC) History of transfusion HTN (hypertension) Hyperlipidemia RBBB Testicular cancer (HCC) Objective Patient reported: No flowsheet data found. There were no vitals filed for this visit. Wt Readings from Last 3 Encounters: 04/02/23 293 lb 6.4 oz (133 kg) 03/28/23 295 lb (134 kg) 03/11/23 298 lb 8 oz (135 kg) Physical exam deferred due to virtual visit-with audio (telephone) capabilities only Data Reviewed and Summarized Labs/Imaging/Testing : reviewed EMR, see A&P for pertinent diagnostic results related to office visit Patient was identified and seen today via Telehealth by agreement and consent. I used the following Telehealth technology: Audio capability only. Total length of call 32 minutes. The patient was offered and advised video for a more comprehensive evaluation, but the patient declined or was unable to use video. Patient location: Patient Location: Home. This patient encounter is appropriate and reasonable under the circumstances: transportation issues . The patient has been advised of the potential risks and limitations of this mode of treatment (including but not limited to the absence of in-person examination) and has agreed to be treated in a remote fashion in spite of them. Any and all of the patient's/patient's family's questions on this issue have been answered and I have made no promises or guarantees to the patient. The patient has also been advised to contact this office for worsening conditions or problems, and seek emergency medical treatment and/or call 911 if the patient deems either necessary. The patient stated that they are currently in the state [facility]. If the patient is a minor, permission has been obtained by the parent or guardian for the patient to receive medical care at this visit. Jonathan De Leon, CLINICAL PHARMACY COORDINATOR - TELECOM BILLING ANALYST Normal [facility] Basophil percentageOrdered B y: Temo Rodriguez on 04-09-2023 Chloride [Moles/Vol] 106 mmol/L 98-107 [facility] Glucose [Mass/Vol] 228 mg/dL 74-106 [facility] Comment on above: Glucose result great er than or equal to 200 mg/dLsuggests DIABETES MELLITUS per A.D.A. criteria. Potassium [Moles/Vol] 4.5 mmol/L 3.5-5.1 [facility] Sodium [Moles/Vol] 137 mmol/L 136-145 [facility] Laboratory - Chemistry and C hemistry - challengeOrdered By: Temo Rodriguez on 04-09-2023 CO2 [Moles/Vol] 25.0 mmol/L 21.0-32.0 [facility] Urea nitrogen/Creatinine [Mass ratio] 13.3 mg/mg 04-12 [facility] No Panel InformationOrdered By: Temo Rodriguez on 04-09-2023 Estimated GFR (MDRD) Amer 63 mL/min >60 [facility] Comment on above: GFR Calc Estimated GFR (MDRD) Non-Af Amer 52 mL/min >60 [facility] Comment on above: Non- GFR Calc Serum or plasma calcium zunilda urement (mass/volume)Ordered By: Temo Rodriguez on 04-09-2023 Calcium [Mass/Vol] 8.8 mg/dL 8.5-10.1 [facility] Serum or plasma creatinine m easurement (mass/volume)Ordered By: Temo Rodriguez on 04-09-2023 Creatinine [Mass/Vol] 1.43 mg/dL 0.70-1.30 [facility] Comment on above: The validity of the calculated GFR & GFRAA in patients over 70 years has not been determined. Clinical correlation is essential. Serum or plasma urea nitroge n measurement (mass/volume)Ordered By: Temo Rodriguez on 04-09-2023 Urea nitrogen [Mass/Vol] 19 mg/dL 7-18 [facility] Thin prep Papanicolaou smear with manual screeningOrdered By: Temo Rodriguez on 04-09-2023 Thin prep Papanicolaou smear with manual screening 6 5-15 [facility] Office Visiton 04-02-2023 Follow-up visit [id number] Robert Lipscomb 1955 M Date Provider Department Center 04/02/2023 [id number][facility] None No family history on file Level of Service:24075 [place] POSTOP FOLLOW UP VISIT RELATED TO ORIGINAL PX Reason for Visit and Comments: Post-op [483] Normal [facility] Progress Noteon 04-02-2023 Progress Note [facility]: [facility] [address] [facility] [address] Dept: [phone] Dept Loc: [phone] Visit type: Established patient Reason for Visit: Post-op Assessment and Plan 1. CAD in [place] artery 2. Hypertension, unspecified type 3. Elevated hemidiaphragm 4. Obesity, Class III, BMI 40-49.9 (morbid obesity) (HCC) 5. Mixed hyperlipidemia - Follow up with Kentrell Chilel cleared for cardiac rehab - follow up VV in 2 weeks - pt is doing well from a surgical perspective - GDMT for CAD with EF preserved Disposition: Patient verbalized understanding of plan and stated they would call if any questions or concerns arise. Treatment Team: PCP: TEMO RODRIGUEZ Subjective HPI: Mr. Robert Lipscomb is a 67 year old male patient with a PMHx that includes CAD s/p SUZETTE tp RCA (2004), RBBB, HTN, HLD, anemia and diabetes (A1c 7.9). He was referred to CT Surgery by Dr. Armendariz. Patient had underwent coronary cath and was found to have severe multivessel CAD. He was seen in the OP setting by Dr. Childress. He consented and was scheduled for CABG on 03/21/23. 03/21/23: Dr. Childress- CABGx3 (PIERSON-LAD, SVG-OM, SVG-RPDA), LEV Pt is doing well has no new issues - all wounds are healing well no new complaints. All of his incisions are well healed at this point. He is back to basic activity. Review of Systems Constitutional: Negative for diaphoresis, fatigue and fever. Respiratory: Negative for cough, shortness of breath and wheezing. Cardiovascular: Negative for chest pain, palpitations and leg swelling. Gastrointestinal: Negative for abdominal distention, constipation and diarrhea. Skin: Negative for color change, pallor and rash. Allergies Allergen Reactions Amoxicillin Amoxicillin-Pot Clavulanate Atorvastatin Other Metformin Hcl Other Other pollen causes redness of eyes Pollen Extract Cough Clavulanic Acid Rash Metformin Diarrhea and Rash Outpatient Medications Prior to Visit Medication Sig Dispense Refill Apoaequorin (Prevagen) 10 MG capsule aspirin 81 MG chewable tablet Chew 1 tablet (81 mg) daily. 30 tablet 11 atenolol (Tenormin) 50 MG tablet insulin aspart (NovoLOG FLEXPEN) 100 UNIT/ML pen Inject 14 Units under the skin in the morning and 14 Units at noon and 14 Units in the evening. Inject with meals. 15 mL 2 insulin glargine (Lantus SoloStar) 100 UNIT/ML pen Inject 36 Units under the skin every morning. insulin pen needle 32G x 4 mm misc Use as instructed 5 times daily 500 each 1 liraglutide (Victoza) 18 MG/3ML injection oxyCODONE (Roxicodone) 5 MG immediate release tablet Take 1 tablet (5 mg) by mouth every 6 hours as needed for moderate pain (4-6) for up to 5 days. 15 tablet 0 rosuvastatin (Crestor) 20 MG tablet Nightly. No facility-administere d medications prior to visit. Past Medical History: Diagnosis Date Anemia Arthritis Coronary artery disease DM (diabetes mellitus) (HCC) History of transfusion HTN (hypertension) Hyperlipidemia RBBB Testicular cancer (HCC) Objective Patient reported: No flowsheet data found. Vitals: 04/02/23 1159 BP: (!) 142/76 Pulse: 78 Wt Readings from Last 3 Encounters: 04/02/23 293 lb 6.4 oz (133 kg) 03/28/23 295 lb (134 kg) 03/11/23 298 lb 8 oz (135 kg) Physical exam deferred due to virtual visit-with audio (telephone) capabilities only Physical exam limited due to virtual visit-audio/video capabilities Physical Exam Cardiovascular: Rate and Rhythm: Normal rate and regular rhythm. Heart sounds: Normal heart sounds. Pulmonary: Effort: Pulmonary effort is normal. Breath sounds: Normal breath sounds. Abdominal: General: Bowel sounds are normal. Palpations: Abdomen is soft. There is no mass. Tenderness: There is no abdominal tenderness. Hernia: No hernia is present. Skin: General: Skin is warm and dry. Neurological: Mental Status: He is alert and oriented to person, place, and time. Data Reviewed and Summarized Labs/Imaging/Testing : reviewed EMR, see A&P for pertinent diagnostic results related to office visit Jonathan De Leon, CLINICAL PHARMACY COORDINATOR - TELECOM BILLING ANALYST [facility] 36on 03-29-2023 36 PC to the patient increased short acting to 18 units with meals will see if that helps [facility] 36 Pt called and states that pt was discharged yesterday with insulin, however pt sugar has been 260 or more all day. Please advise. [facility] CARECOORDon 03-29-2023 [place] Patient Choice Patient Name: ROBERT LIPSCOMB Date of : 1955 [facility] [id number] 03-28-2023 [id number] Notified [facility] of discharge to home via [facility]. [facility] BASIC METABOLIC PANELon 10-0 Anion gap [Moles/Vol] 14 mmol/L High 3-13 [facility] Comment on above: Performed By: #### L AB15 ####Mulcher Operator: TONI NAVA ([id number])[facility])[address] [place] [address] Calcium [Mass/Vol] 8.4 mg/dL Normal 8.4-10.4 [facility] Comment on above: Performed By: #### L AB15 ####Mulcher Operator: TONI NAVA ([id number])[facility] ([facility])[address] [place] [address] [place] Chloride [Moles/Vol] 99 mmol/L Normal 98-107 [facility] Comment on above: Performed By: #### L AB15 ####Mulcher Operator: TONI NAVA ([id number])[facility] ([facility])[address] [place] [address] [place] CO2 [Moles/Vol] 23 mmol/L Normal 22-30 [facility] Comment on above: Performed By: #### L AB15 ####Mulcher Operator: TONI NAVA ([id number])[facility] ([facility])[address] [place] [address] [place] Creatinine [Mass/Vol] 2.23 mg/dL High 0.66-1.25 [facility] Comment on above: Performed By: #### L AB15 ####Mulcher Operator: TONI NAVA ([id number])[facility])[address] [place] [address] GLOMERULAR FILTRATION RATE ML/MIN/1.73 SQ M.PREDICTED 31.1 mL/min/1.73m*2 Low >60.0 [facility] Comment on above: Result Comment: Calc ulation based on the Chronic Kidney Disease Epidemiology Collaboration (CKD-EPI) equation refit without adjustment for race Performed By: #### L AB15 ####Mulcher Operator: TONI NAVA ([id number])[facility] ([facility])[address] [place] [address] Glucose [Mass/Vol] 322 mg/dL High 70-100 [facility] Comment on above: Performed By: #### L AB15 ####Mulcher Operator: TONI NAVA ([id number])[facility])[address] [place] [address] Potassium [Moles/Vol] 3.7 mmol/L Normal 3.5-5.1 [facility] Comment on above: Performed By: #### L AB15 ####Mulcher Operator: TONI NAVA ([id number])[facility])[address] [place] [address] Sodium [Moles/Vol] 136 mmol/L Normal 135-145 [facility] Comment on above: Performed By: #### L AB15 ####Mulcher Operator: TONI NAVA ([id number])[facility])[address] [place] [address] [place] Urea nitrogen [Mass/Vol] 72 mg/dL High 9-20 [facility] Comment on above: Performed By: #### L AB15 ####Mulcher Operator: TONI NAVA ([id number])[facility])[address] [place] [address] Anion gap [Moles/Vol] 11 mmol/L Normal 3-13 [facility] Comment on above: Performed By: #### L AB15 ####Mulcher Operator: TONI NAVA ([id number])[facility] ([facility])[address] [place] [address] Calcium [Mass/Vol] 8.5 mg/dL Normal 8.4-10.4 [facility] Comment on above: Performed By: #### L AB15 ####Mulcher Operator: TONI NAVA ([id number])[facility] ([facility])[address] [place] [address] [place] Chloride [Moles/Vol] 100 mmol/L Normal 98-107 [facility] Comment on above: Performed By: #### L AB15 ####Mulcher Operator: TONI NAVA ([id number])[facility] ([facility])[address] [place] [address] [place] CO2 [Moles/Vol] 25 mmol/L Normal 22-30 [facility] Comment on above: Performed By: #### L AB15 ####Mulcher Operator: TONI NAVA ([id number])[facility] ([facility])[address] [place] [address] [place] Creatinine [Mass/Vol] 2.44 mg/dL High 0.66-1.25 [facility] Comment on above: Performed By: #### L AB15 ####Mulcher Operator: TONI NAVA ([id number])[facility] ([facility])[address] [place] [address] [place] GLOMERULAR FILTRATION RATE ML/MIN/1.73 SQ M.PREDICTED 27.9 mL/min/1.73m*2 Low >60.0 [facility] Comment on above: Result Comment: Calc ulation based on the Chronic Kidney Disease Epidemiology Collaboration (CKD-EPI) equation refit without adjustment for race Performed By: #### L AB15 ####Mulcher Operator: TONI NAVA ([id number])[facility] ([facility])[address] [place] [address] [place] Glucose [Mass/Vol] 165 mg/dL High 70-100 [facility] Comment on above: Performed By: #### L AB15 ####Mulcher Operator: TONI NAVA ([id number])[facility] ([facility])[address] [place] [address] Potassium [Moles/Vol] 3.5 mmol/L Normal 3.5-5.1 [facility] Comment on above: Performed By: #### L AB15 ####Mulcher Operator: TONI NAVA ([id number])[facility] ([facility])[address] [place] [address] Sodium [Moles/Vol] 136 mmol/L Normal 135-145 [facility] Comment on above: Performed By: #### L AB15 ####Mulcher Operator: TONI NAVA ([id number])[facility] ([facility])[address] [place] [address] Urea nitrogen [Mass/Vol] 79 mg/dL High 9-20 [facility] Comment on above: Performed By: #### L AB15 ####Mulcher Operator: TONI ANVA ([id number])[facility])[address] [place] [address] Basic metabolic 1998 panelon 03-28-2023 Anion gap [Moles/Vol] 14 mmol/L High 3 - 13 mmol/L [facility] Calcium [Mass/Vol] 8.4 mg/dL 8.4 - 10. 4 mg/dL [facility] Chloride [Moles/Vol] 99 mmol/L 98 - 10 7 mmol/L [facility] CO2 [Moles/Vol] 23 mmol/L 22 - 30 mmol/L [facility] Creatinine [Mass/Vol] 2.23 mg/dL High 0.66 - 1.25 mg/dL [facility] GFR/1.73 sq M.predicted MDRD (S/P/Bld) [Vol rate/Area] 31.1 mL/min/{1.73_m2} Low - PINF [facility] Glucose [Mass/Vol] 322 mg/dL High 70 - 100 mg/dL [facility] Interpretation and review of laboratory results Abnormal [facility] Potassium [Moles/Vol] 3.7 mmol/L 3.5 - 5.1 mmol/L [facility] Sodium [Moles/Vol] 136 mmol/L 135 - 145 mmol/L [facility] Urea nitrogen [Mass/Vol] 72 mg/dL High 9 - 20 mg/d L [facility] Anion gap [Moles/Vol] 11 mmol/L 3 - 13 mmol/L [facility] Calcium [Mass/Vol] 8.5 mg/dL 8.4 - 10. 4 mg/dL [facility] Chloride [Moles/Vol] 100 mmol/L 98 - 10 7 mmol/L [facility] CO2 [Moles/Vol] 25 mmol/L 22 - 30 mmol/L [facility] Creatinine [Mass/Vol] 2.44 mg/dL High 0.66 - 1.25 mg/dL [facility] GFR/1.73 sq M.predicted MDRD (S/P/Bld) [Vol rate/Area] 27.9 mL/min/{1.73_m2} Low - PINF [facility] Glucose [Mass/Vol] 165 mg/dL High 70 - 100 mg/dL [facility] Interpretation and review of laboratory results Abnormal [facility] Potassium [Moles/Vol] 3.5 mmol/L 3.5 - 5.1 mmol/L [facility] Sodium [Moles/Vol] 136 mmol/L 135 - 145 mmol/L [facility] Urea nitrogen [Mass/Vol] 79 mg/dL High 9 - 20 mg/d L [facility] CBC W Auto Differential pane l (Bld)on 03-28-2023 Basophils (Bld) [#/Vol] 0.0 10*3/uL 0.0 - 0.2 10*3/uL [facility] Basophils/100 WBC (Bld) 0.3 % 0.0 - 2.0 % [facility] Eosinophils (Bld) [#/Vol] 0.2 10*3/uL 0. 0 - 0.5 10*3/uL [facility] Eosinophils/100 WBC (Bld) 1.9 % 1.0 - 6.0 % [facility] Erythrocyte distribution width (RBC) [Ratio] 14.7 % High 11.5 - 14.5 % [facility] Hematocrit (Bld) [Volume fraction] 30.6 % Low 40.0 - 52.0 % [facility] Hemoglobin (Bld) [Mass/Vol] 10.1 g/dL Low 13.0 - 18.0 g/dL [facility] Interpretation and review of laboratory results Abnormal [facility] Lymphocytes (Bld) [#/Vol] 0.8 10*3/uL Low 1. 0 - 4.3 10*3/uL [facility] Lymphocytes/100 WBC (Bld) 7.9 % Low 20 .0 - 40.0 % [facility] MCH (RBC) [Entitic mass] 28.7 pg 26. 0 - 34.0 pg [facility] MCHC (RBC) [Mass/Vol] 32.9 % 32.0 - 36.0 % [facility] MCV (RBC) [Entitic vol] 87.2 fL 80.0 - 98.0 fL [facility] Monocytes (Bld) [#/Vol] 1.0 10*3/uL High 0.0 - 0.8 10*3/uL [facility] Monocytes/100 WBC (Bld) 9.1 % 2.0 - 10.0 % [facility] Neutrophils (Bld) [#/Vol] 8.7 10*3/uL High 1. 8 - 7.0 10*3/uL [facility] Neutrophils/100 WBC (Bld) 80.8 % High 40 .0 - 80.0 % [facility] Nucleated RBC/100 WBC (Bld) [Ratio] 0.0 % [facility] Platelet mean volume (Bld) [Entitic vol] 8.0 fL 7.4 - 12.4 fL [facility] Platelets (Bld) [#/Vol] 249 10*3/uL 140 - 440 10*3/uL [facility] RBC (Bld) [#/Vol] 3.51 10*6/uL Low 4.40 - 5.9 0 10*6/uL [facility] WBC (Bld) [#/Vol] 10.7 10*3/uL 3.6 - 10.7 10*3/uL [facility] CBC WITH AUTO DIFFERENTIALon 03-28-2023 Basophils (Bld) [#/Vol] 0.0 10*3/uL Normal 0.0-0.2 [facility] Comment on above: Performed By: #### L AB15, [id number] #### Mulcher Operator: TONI NAVA ([id number]) [facility] ([address] Basophils/100 WBC (Bld) 0.3 % Normal 0.0-2.0 [facility] Comment on above: Performed By: #### L AB15, [id number] #### Mulcher Operator: TONI NAVA ([id number]) [facility]) [address] [place] [address] Eosinophils (Bld) [#/Vol] 0.2 10*3/uL Normal 0.0-0.5 [facility] Comment on above: Performed By: #### L AB15, [id number] #### Mulcher Operator: TONI NAVA ([id number]) [facility] ([facility]) [address] [place] [address] Eosinophils/100 WBC (Bld) 1.9 % Normal 1.0-6.0 [facility] Comment on above: Performed By: #### L AB15, [id number] #### Mulcher Operator: TONI NAVA ([id number]) [facility]) [address] [place] [address] Erythrocyte distribution width (RBC) [Ratio] 14.7 % High 11.5-14.5 [facility] Comment on above: Performed By: #### L AB15, [id number] #### Mulcher Operator: TONI NAVA ([id number]) [facility]) [address] [place] [address] ERYTHROCYTE MEAN CORPUSCULAR HEMOGLOBIN CONCENTRATION (G/DL) BY AUTOMATED 32.9 % Normal 32.0-36.0 [facility] Comment on above: Performed By: #### L AB15, [id number] #### Mulcher Operator: TONI NAVA ([id number]) [facility] ([facility]) [address] [place] [address] Hematocrit (Bld) [Volume fraction] 30.6 % Low 40.0-52.0 [facility] Comment on above: Performed By: #### L AB15, [id number] #### Mulcher Operator: TONI NAVA ([id number]) [facility]) [address] [place] [address] Hemoglobin (Bld) [Mass/Vol] 10.1 g/dL Low 13.0-18.0 [facility] Comment on above: Performed By: #### L AB15, [id number] #### Mulcher Operator: TONI NAVA ([id number]) [facility]) [address] [place] [address] Lymphocytes (Bld) [#/Vol] 0.8 10*3/uL Low 1.0-4.3 [facility] Comment on above: Performed By: #### L AB15, [id number] #### Mulcher Operator: TONI NAVA ([id number]) [facility]) [address] [place] [address] Lymphocytes/100 WBC (Bld) 7.9 % Low 20.0-40.0 [facility] Comment on above: Performed By: #### L AB15, [id number] #### Mulcher Operator: TONI NAVA ([id number]) [facility]) [address] [place] [address] MCH (RBC) [Entitic mass] 28.7 pg Normal 26.0-34.0 [facility] Comment on above: Performed By: #### L AB15, [id number] #### Mulcher Operator: TONI NAVA ([id number]) [facility]) [address] [place] [address] MCV (RBC) [Entitic vol] 87.2 fL Normal 80.0-98.0 [facility] Comment on above: Performed By: #### L AB15, [id number] #### Mulcher Operator: TONI NAVA ([id number]) [facility]) [address] [place] [address] Monocytes (Bld) [#/Vol] 1.0 10*3/uL High 0.0-0.8 [facility] Comment on above: Performed By: #### L AB15, [id number] #### Mulcher Operator: TONI NAVA ([id number]) [facility]) [address] [place] [address] Monocytes/100 WBC (Bld) 9.1 % Normal 2.0-10.0 [facility] Comment on above: Performed By: #### L AB15, [id number] #### Mulcher Operator: TONI NAVA ([id number]) [facility] ([facility]) [address] [place] [address] Neutrophils (Bld) [#/Vol] 8.7 10*3/uL High 1.8-7.0 [facility] Comment on above: Performed By: #### L AB15, [id number] #### Mulcher Operator: TONI NAVA ([id number]) [facility] ([facility]) [address] [place] [address] Neutrophils/100 WBC (Bld) 80.8 % High 40.0-80.0 [facility] Comment on above: Performed By: #### L AB15, [id number] #### Mulcher Operator: TONI NAVA ([id number]) [facility] ([facility]) [address] [place] [address] NRBC (PER 100 WBCS) BY AUTOMATED COUNT 0.0 /100 WBCs Normal 0.0-2.0 [facility] Comment on above: Performed By: #### L AB15, [id number] #### Mulcher Operator: TONI NAVA ([id number]) [facility] ([facility]) [address] [place] [address] Platelet mean volume (Bld) [Entitic vol] 8.0 fL Normal 7.4-12.4 [facility] Comment on above: Performed By: #### L AB15, [id number] #### Mulcher Operator: TONI NAVA ([id number]) [facility] ([facility]) [address] [place] [address] [place] PLATELETS (10*3/UL) IN BLOOD AUTOMATED COUNT 249 10*3/uL Normal 140-440 [facility] Comment on above: Performed By: #### L AB15, [id number] #### Mulcher Operator: TONI NAVA ([id number]) [facility] ([facility]) [address] [place] [address] [place] RBC (Bld) [#/Vol] 3.51 10*6/uL Low 4.40-5.90 [facility] Comment on above: Performed By: #### L AB15, [id number] #### Mulcher Operator: TONI NAVA ([id number]) [facility] ([facility]) [address] [place] [address] WBC (Bld) [#/Vol] 10.7 10*3/uL Normal 3.6-10.7 [facility] Comment on above: Performed By: #### L AB15, [id number] #### Mulcher Operator: TONI NAVA ([id number]) [facility] ([facility]) [address] [place] [address] IDNon 03-28-2023 IDN The patient is Moderately Stable - Low risk of patient condition declining or worsening The patient's goals for the shift include go home The clinical goals for the shift include discharge, creatinine normalize Over the shift, the patient did not make progress toward the following goals. Barriers to progression include pt sensitive to all care, reluctant to walk and exert self due to discomfort. . Recommendations to address these barriers include medicate pain, encouragement. Normal [facility] Laboratory - Chemistry and C hemistry - challengeon 03-28-2023 Glucose [Mass/Vol] 359 mg/dL High 70 - 100 mg/dL [facility] Glucose [Mass/Vol] 173 mg/dL High 70 - 100 mg/dL [facility] No Panel Informationon 03-28 Interpretation and review of laboratory results Abnormal [facility] Interpretation and review of laboratory results Abnormal [facility] Nursing Noteon 03-28-2023 Nursing Note Pt discharged home with and daughter. All discharge instructions gone over, med rec reviewed until understanding verbalized. Activity restrictions, when to call office and problems to watch for gone over. Pt encouraged to walk at the very least 4 times a day and to use IS and check MBS's. To car via wheelchair. Saline lock removed. Normal [facility] Progress Noteon 03-28-2023 Progress Note [facility] [address] [place], [place] [id number] Progress Note Assessment: Assessment: 67 y.o. 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 Non oliguric DEIDRE ATN in setting of hemodynamic changes and decraese IV depletion due to diarrhea Hold marleni LR 50ml/hr Albumin 25 gm bid Creatinine better 2. Volume IV volume deplted third spacing 3. Electrolytes:K 3.6 no nee to replete 4. Acid/base: AGMA added LR 5. MBD: check uric acid 6. Anemia:acute on chronic 7. Medications:dose [id number] Plan: -IV LR x 24 hrs Fausto Kilpatrick MD 03/28/2023 1:48 PM Subjective: Patient seen and examined today. We are following this patient for SOB betetr sitting on chair Creatinine improved 2.23. Scheduled Meds:acetaminophen, 1,000 mg, Oral, q8h aspirin, 81 mg, Oral, Daily atenolol, 50 mg, Oral, Daily cefepime, 2,000 mg, IntraVENous, q12h heparin, 5,000 Units, SubCUTAneous, BID insulin glargine, 36 Units, SubCUTAneous, q AM insulin lispro, 0-12 Units, SubCUTAneous, TID WC Insulin Lispro, 14 Units, SubCUTAneous, TID WC Lidocaine, 1 patch, Topical, Daily melatonin, 10 mg, Oral, Nightly pantoprazole, 40 mg, Oral, qAM AC rosuvastatin, 20 mg, Oral, Nightly senna-docusate sodium, 2 tablet, Oral, Nightly Continuous Infusions:lactated Ringer's, 50 mL/hr, Last Rate: 50 mL/hr (03/28/23 0215) PRN Meds:PRN medications: calcium gluconate, dextrose, dextrose, glucagon (rDNA), glucose, ipratropium-albutero l, ondansetron ODT OR ondansetron, oxyCODONE OR oxyCODONE, potassium chloride CR Vitals: BP (!) 115/37 Pulse 70 Temp 36.8 ?C (98.3 ?F) Resp 20 Ht 1.753 m (5' 9) Wt 134 kg (295 lb) SpO2 97% PF 55 L/min BMI 43.56 kg/m? BLOOD PRESSURE RANGE: Systolic (24hrs), Av , Min:110 , Max:127 ; Diastolic (24hrs), Av, Min:35, Max:49 24HR INTAKE/OUTPUT: Intake/Output Summary (Last 24 hours) at 03/28/2023 1348 Last data filed at 03/28/2023 0600 Gross per 24 hour Intake 559 ml Output -- Net 559 ml Physical exam: CTA Incision CDI RRR Abdomen distended Data: Labs: Recent Labs 03/26/23 0802 03/27/23 0527 03/28/23 0531 WBC 14.8* 13.9* 10.7 HGB 10.8* 9.3* 10.1* HCT 33.1* 28.3* 30.6* MCV 86.5 87.4 87.2 PLT 229 205 249 Recent Labs 03/26/23 0030 03/26/23 0145 03/27/23 0503/27/23 1600 03/28/23 0531 03/28/23 1159 NA 140 < > 136 131* 136 136 K 3.3* < > 3.6 3.1* 3.5 3.7 CL 103 < > 102 95* 100 99 CO2 25 < > 20* 24 25 23 GLUCOSE 48* < > 121* 245* 165* 322* MG 2.7* -- 2.5* -- -- -- BUN 51* < > 78* 88* 79* 72* CREATININE 2.35* < > 2.87* 3.06* 2.44* 2.23* < > = values in this interval not displayed. Ionized Calcium: No components found for: IONCA Magnesium: Lab Results Component Value Date MG 2.5 (H) 03/27/2023 Phosphorus: No results found for: PHOS U/A: No results found for: NITRITE, COLORU, PHUR, TRICHOMONAS, YEAST,BACTERIA, CLARITYU, SPECGRAV, LEUKOCYTESUR, UROBILINOGEN, BILIRUBINUR, BLOODU, GLUCOSEU, KETONESU, AMORPHOUS Urine Culture: No components found for: CURINE Blood Culture: No components found for: CBLOOD, CFUNGUSBL Blood Culture from Central [place]: No components found for: CBLOODLN Normal [facility] Progress Note Physical Therapy Facility/Department: [facility] Physical Therapy Daily Treatment Note NAME: Shane Lipscomb : 1955 Date of Service: 03/28/2023 Discharge Recommendations: Home with Home health PT PT Equipment Recommendations Equipment Needed: No Other: own rollator Assessment Requires PT Follow-Up: Yes Assessment: Patient requires increased time for all activities. Demonstrated good carryover with P & C therex with verbal prompting. Using rollator and minding sternal precautions except tendency to want to push up with one hand during sit-stand transfer. Required verbal and tactile cues to address. Pericare managed by ORTHOTIC AND PROSTHETIC TECHNICIAN as patient said he is unable. Recommend home at discharge. Performance Deficits/Impairments : Decreased functional mobility , Decreased ADL status, Decreased strength, Decreased endurance, Decreased ROM, Decreased posture Decision Making: Medium Complexity Patient Diagnosis(es): The primary encounter diagnosis was CAD in [place] artery. 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 has a past medical history of Anemia, Arthritis, Coronary artery disease, DM (diabetes mellitus) (HCC), History of transfusion, HTN (hypertension), Hyperlipidemia, RBBB, and Testicular cancer (HCC). has a past surgical history that includes lap,inguinal hernia repr,initial (historical); Colonoscopy; Appendectomy; Coronary stent placement (2004); Tonsillectomy; and Adenoidectomy. Restrictions Restrictions/Precaut ions Restrictions/Precaut ions: General Precautions, Fall Risk Required Braces or Orthoses?: No Position Activity Restriction Sternal Precautions: No Pushing, No Pulling, 10# Lifting Restrictions Other position/activity restrictions: PIV, tele. Subjective General Chart Reviewed: Yes Patient Assessed for Rehabilitation Services: Yes Response To Previous Treatment: Patient with no complaints from previous session. Family / Caregiver Present: Yes Diagnosis: CAD, s/p CABG x3 03/21 Follows Commands: Within Functional Limits Other (Comment): RN approved pt for PT treatment. General Comment Comments: PIV, tele Subjective Subjective: Pt seated in recliner. Agreeable to ambulation and P & C exercises. Review/recall all sternal precautions. Stated he has a headache and asked for ice pack for his head. Patient Stated Goal: to feel better Pain Assessment Pain Assessment: No/denies pain Cognition/Orientatio n Overall Cognitive Status: WFL Overall Orientation Status: Within Normal Limits Objective Transfers Sit to Stand: Minimal Assistance Stand to sit: Minimal Assistance Comment: Requires frequent verbal and tactile cues to maintain sternal precautions. Ambulation Ambulation: Yes Ambulation 1 Surface 1: Level tile Device 1: Rollator Assistance 1: Contact guard Quality of Gait 1: slow michelle, uneven step length, step to pattern Distance (ft) 1: 100' x 2 Comments 1: Required one rest break, cues for posture to decrease head-forward and flexion. Stairs Rails 1: Left Additional Factors: Non-reciprocal going up, Non-reciprocal going down, Increased time to complete, Hand placement cues Assistance 1: Minimum assistance Number of Steps 1: 4 Comment 1: used railing for guidance and was compliant with sternal precautions. Step-to pattern. Balance Posture: Good Sitting - Static: Good Sitting - Dynamic: Good Standing - Static: Good Standing - Dynamic: Good Comments: standing with forward head posture, CGA to balance Exercises Upper Extremity: P&C ex #1-9 all x 10 reps each Comments: reviewed handout for recall Other exercises Other exercises?: No Safety Safety Devices Type of Devices: All fall risk precautions in place, Call light within reach, Gait belt, No alarms engaged upon entry into room, Left in chair Restraints Restraints Initially in Place: No AM-PAC Score AM-PAC Inpatient Mobility Raw Score (No Stairs) : 15 Goals Encounter Problems Encounter Problems (Active) Cardiac Patient will perform bed mobility with independence in order to improve independence and prepare for out of bed mobility. (Not Addressed) Start: 03/22/23 Expected End: 04/05/23 Patient will complete sit to stand transfer with modified independence to LRD in order to improve safety and prepare for out of bed mobility. (Progressing) Start: 03/22/23 Expected End: 04/05/23 Patient will ambulate 600 feet or ambulate 5 minutes with modified independence with RPE of 14 or lower. (Progressing) Start: 03/22/23 Expected End: 04/05/23 Patient will ascend and descend 3 # stairs with modified independence rail for balance only. (Progressing) Start: 03/22/23 Expected End: 04/05/23 Maria Del Rosarioen (more content not included)... [facility] Progress Note Department of Internal Medicine Division of Endocrinology, Diabetes, & Metabolism Endocrinology Note Patient Name: Robert Lipscomb : 1955 AGE: 67 y.o. Room/Bed: T1-126/T1-126 A Admission Date: 03/21/2023 Visit Date: 03/28/2023 Reason for Endocrine Consult: post op heart Provider/Team Requesting Consult: cts PCP: TEMO RODRIGUEZ Outpt Gluing Crew Leader: No ASSESSMENT: Type 2 DM with with hyperglycemia with usp insulin use Recent hypoglycemia DEIDRE on CKD S/p CABG Obesity Body mass index is 44.3 kg/m?. PLAN: BG variable GFR remains low Continue Lantus 36 units every morning Continue Humalog 14 units before meals with medium dose correction before meals Discussed insulin regimen. ICU goal <180 GMF goal <150 POCT BG qAC and HS Hypoglycemia per protocol Carb controlled diet Can resume GLP-1 RA (Victoza) outpt. Consider switching to weekly GLP-1 RA outpt. Stop Prandin. Pt will start Humalog at home. In future pt will benefit from SGLT-2 Inhibitor and CGM. ANTICIPATED ENDOCRINE HOME GOING RECOMMENDATIONS: Optimized for Discharge from Endocrine standpoint: yes Home Going Endocrine Rx Recommendations-- Tresiba and Humalog with current doses -- will need rx for Humalog and pen needles Resume Victoza 1.8 mg daily Stop Prandin Outpt Follow Up-- PCP SUBJECTIVE/HPI: CHIEF COMPLAINT: s/p CABG Type of DM: 2 Onset of DM: over 10 years per patient Home DM Medication Regimen: per chart lantus pens 70 am and 50 pm, victoza 1.8 mg daily; prandin 4 mg tid meals (not taking) DM control (last A1c/glucose data): Lab Results Component Value Date HGBA1C 7.9 (H) 03/11/2023 -no hypoglycemia -some BG above goal -appetite variable; has been snacking on sweets -ambulated a little today -still fatigued -no SOB or CP - will help at home -Estimated Creatinine Clearance: 38.8 mL/min (A) (by C-G formula based on SCr of 2.44 mg/dL (H)). Glucose Date/Time Value Ref Range Status 03/28/2023 08:18 AM 173 (H) 70 - 100 mg/dL Final 03/27/2023 05:54 PM 265 (H) 70 - 100 mg/dL Final 03/27/2023 12:33 PM 189 (H) 70 - 100 mg/dL Final 03/27/2023 08:07 AM 191 (H) 70 - 100 mg/dL Final 03/27/2023 06:41 AM 163 (H) 70 - 100 mg/dL Final 03/26/2023 05:32 PM 266 (H) 70 - 100 mg/dL Final Review of Systems ROS negative except for those mentioned in HPI. OBJECTIVE: Vitals: 03/28/23 0500 03/28/23 0518 03/28/23 0600 03/28/23 0800 BP: (!) 127/46 BP Location: Patient Position: Pulse: 69 70 70 Resp: Temp: 36.6 ?C (97.8 ?F) TempSrc: Oral SpO2: Weight: 295 lb (134 kg) Height: PF: Physical Exam Vitals and nursing note reviewed. Constitutional: General: He is awake. He is not in acute distress. Appearance: He is obese. Cardiovascular: Rate and Rhythm: Normal rate and regular rhythm. Pulmonary: Effort: Pulmonary effort is normal. No respiratory distress. Abdominal: Palpations: Abdomen is soft. Tenderness: There is no abdominal tenderness. Musculoskeletal: Right lower leg: Edema present. Left lower leg: Edema present. Skin: General: Skin is warm and dry. Comments: Intact chest incision Neurological: General: No focal deficit present. Mental Status: He is alert. Psychiatric: Mood and Affect: Mood normal. Behavior: Behavior is cooperative. 24 hour intake/output: Intake/Output Summary (Last 24 hours) at 03/28/2023 1104 Last data filed at 03/28/2023 0600 Gross per 24 hour Intake 1064 ml Output -- Net 1064 ml Diet: Adult diet Regular; 5 carb choices (75 gm/meal) Medications (as per EMR): HomeMeds: Current Outpatient Medications Medication Instructions amLODIPine (Norvasc) 5 MG tablet Daily Apoaequorin (Prevagen) 10 MG capsule No dose, route, or frequency recorded. aspirin 324 mg, Oral, Daily atenolol (Tenormin) 50 MG tablet No dose, route, or frequency recorded. chlorhexidine (Peridex) 0.12 % solution 15 mL, Mouth/Throat, Use night before and morning of surgery enalapril (Vasotec) 20 MG tablet No dose, route, or frequency recorded. insulin glargine (Lantus SoloStar) 100 UNIT/ML pen SubCUTAneous, 70 units in the morning, 50 units in the evening liraglutide (Victoza) 18 MG/3ML injection No dose, route, or frequency recorded. mupirocin (Bactroban) 2 % ointment Apply liberal amount per nostril the night before surgery and then again the morning of surgery nitroglycerin (NITROSTAT) 0.4 mg, SubLINGual, Every 5 min PRN repaglinide (PRANDIN) 4 mg, 3 times daily before meals rosuvastatin (Crestor) 20 MG tablet Nightly Scheduled Meds:acetaminophen, 1,000 mg, Oral, q8h aspirin, 81 mg, Oral, Daily atenolol, 50 mg, Oral, Daily cefepime, 2,000 mg, IntraVENous, q12h heparin, 5,000 Units, SubCUTAneous, BID insulin glargine, 36 Units, SubCUTAneous, q AM insulin lispro, 0-12 Units, SubCUTAneous, TID WC Insulin Lispro, 14 Units, SubCUTAneous, TID WC Lidocaine, 1 patch, Topical, Daily melaton (more content not included)... Normal [facility] XR CHEST 1 VIEWon 03-28-2023 XR CHEST 1 VIEW Patient Name: ROBERT LIPSCOMB : 1955 Exam Date/Time: 03/28/2023 05:16 Procedure: XR CHEST 1 VIEW Ordering Provider: JACINTO KYLE Reason For Exam: DYSPNEA CHEST - PORTABLE: CLINICAL INDICATION: Respiratory distress for follow up TECHNIQUE: Portable AP COMPARISON: One day ago FINDINGS: Heart/Mediastinum: Unchanged Lungs/Pleura: Elevation of the right hemidiaphragm again noted. Increased density at the left lung base is likely atelectasis. Sternal wires are noted. IMPRESSION: Atelectasis at the left lung base. No new consolidation. Report Dictated on Electronically Signed By: Tc Davis MD Electronically Signed Date/Time: 03/28/2023 5:39 AM EDT Normal [facility] XR Chest Single viewon 03-28 [facility] Radiology Study observation (narrative) [facility] BASIC METABOLIC PANELon 10-0 Anion gap [Moles/Vol] 13 mmol/L Normal 3-13 [facility] Comment on above: Performed By: #### L AB15 ####Mulcher Operator: TONI NAVA ([id number])[facility] ([facility])[address] [place] [address] Calcium [Mass/Vol] 8.1 mg/dL Low 8.4-10.4 [facility] Comment on above: Performed By: #### L AB15 ####Mulcher Operator: TONI [id number])[facility] ([facility])[address] [place] [address] Chloride [Moles/Vol] 95 mmol/L Low 98-107 [facility] Comment on above: Performed By: #### L AB15 ####Mulcher Operator: TONI [id number])[facility] [place] [address] CO2 [Moles/Vol] 24 mmol/L Normal 22-30 [facility] Comment on above: Performed By: #### L AB15 ####Mulcher Operator: TONI NAVA ([id number])[facility])[address] [place] [address] Creatinine [Mass/Vol] 3.06 mg/dL High 0.66-1.25 [facility] Comment on above: Performed By: #### L AB15 ####Mulcher Operator: TONI NAVA ([id number])[facility] ([facility])[address] [place] [address] GLOMERULAR FILTRATION RATE ML/MIN/1.73 SQ M.PREDICTED 21.3 mL/min/1.73m*2 Low >60.0 [facility] Comment on above: Result Comment: Calc ulation based on the Chronic Kidney Disease Epidemiology Collaboration (CKD-EPI) equation refit without adjustment for race Performed By: #### L [id number] ####Mulcher Operator: TONI NAVA ([id number])[facility] [place] [address] Glucose [Mass/Vol] 245 mg/dL High 70-100 [facility] Comment on above: Performed By: #### L [id number] ####Mulcher Operator: TONI NAVA ([id number])[facility] [place] [address] Potassium [Moles/Vol] 3.1 mmol/L Low 3.5-5.1 [facility] Comment on above: Performed By: #### L [id number] ####Mulcher Operator: TONI NAVA ([id number])[facility] ([facility])[address] [place] [address] Sodium [Moles/Vol] 131 mmol/L Low 135-145 [facility] Comment on above: Performed By: #### L [id number] ####Mulcher Operator: TONI NAVA ([id number])[facility] ([facility])[address] [place] [address] [place] Urea nitrogen [Mass/Vol] 88 mg/dL High 9-20 [facility] Comment on above: Performed By: #### L [id number] ####Mulcher Operator: TONI NAVA ([id number])[facility])[address] [place] [address] Anion gap [Moles/Vol] 14 mmol/L High 3-13 [facility] Comment on above: Performed By: #### L AB15, [id number] #### Mulcher Operator: TONI NAVA ([id number]) [facility] ([facility]) [address] [place] [address] Calcium [Mass/Vol] 7.8 mg/dL Low 8.4-10.4 [facility] Comment on above: Performed By: #### L [id number], [id number] #### Mulcher Operator: TONI NAVA ([id number]) [facility] ([facility]) [address] [place] [address] Chloride [Moles/Vol] 102 mmol/L Normal 98-107 [facility] Comment on above: Performed By: #### L AB15, [id number] #### Mulcher Operator: TONI NAVA ([id number]) [facility] ([facility]) [address] [place] [address] CO2 [Moles/Vol] 20 mmol/L Low 22-30 [facility] Comment on above: Performed By: #### L AB15, [id number] #### Mulcher Operator: TONI NAVA ([id number]) [facility]) [address] [place] [address] Creatinine [Mass/Vol] 2.87 mg/dL High 0.66-1.25 [facility] Comment on above: Performed By: #### L AB15, [id number] #### Mulcher Operator: TONI NAVA ([id number]) [facility]) [address] [place] [address] [place] GLOMERULAR FILTRATION RATE ML/MIN/1.73 SQ M.PREDICTED 23.0 mL/min/1.73m*2 Low >60.0 [facility] Comment on above: Result Comment: Calc ulation based on the Chronic Kidney Disease Epidemiology Collaboration (CKD-EPI) equation refit without adjustment for race Performed By: #### L AB15, [id number] #### Mulcher Operator: TONI NAVA ([id number]) [facility] ([facility]) [address] [place] [address] Glucose [Mass/Vol] 121 mg/dL High 70-100 [facility] Comment on above: Performed By: #### L AB15, [id number] #### Mulcher Operator: TONI NAVA ([id number]) [facility] ([facility]) [address] [place] [address] Potassium [Moles/Vol] 3.6 mmol/L Normal 3.5-5.1 [facility] Comment on above: Performed By: #### L AB15, [id number] #### Mulcher Operator: TONI NAVA ([id number]) [facility] ([facility]) [address] [place] [address] Sodium [Moles/Vol] 136 mmol/L Normal 135-145 [facility] Comment on above: Performed By: #### L AB15, [id number] #### Mulcher Operator: TONI NAVA ([id number]) [facility]) [address] [place] [address] Urea nitrogen [Mass/Vol] 78 mg/dL High 9-20 [facility] Comment on above: Performed By: #### L AB15, [id number] #### Mulcher Operator: TONI NAVA ([id number]) [facility]) [address] [place] [address] BLOOD CULTUREon 03-27-2023 Bacteria identified Cx Nom (Bld) BLOOD CULTURE Reference No growth at 5 days ORDER COMMENTS: Blood Collection Site: Right Lower Arm [ S = SUSCEPTIBLE R = RESISTANT I = INTERMEDIATE S-DD = Susceptible-dose dependent NS = Non-susceptible NO = No Interpretation ] Normal [facility] Comment on above: Performed By: #### L [id number] #### Mulcher Operator: TONI NAVA ([id number]) [facility] ([facility]) [address] [place] [address] Bacteria identified Cx Nom (Bld) BLOOD CULTURE Reference No growth at 5 days ORDER COMMENTS: Blood Collection Site: Left Antecubital [ S = SUSCEPTIBLE R = RESISTANT I = INTERMEDIATE S-DD = Susceptible-dose dependent NS = Non-susceptible NO = No Interpretation ] Normal [facility] Comment on above: Performed By: #### L AB15, [id number] #### Mulcher Operator: TONI NAVA ([id number]) [facility]) [address] [place] [address] Basic metabolic 1998 panelon 03-27-2023 Anion gap [Moles/Vol] 13 mmol/L 3 - 13 mmol/L [facility] Calcium [Mass/Vol] 8.1 mg/dL Low 8.4 - 10. 4 mg/dL [facility] Chloride [Moles/Vol] 95 mmol/L Low 98 - 10 7 mmol/L [facility] CO2 [Moles/Vol] 24 mmol/L 22 - 30 mmol/L [facility] Creatinine [Mass/Vol] 3.06 mg/dL High 0.66 - 1.25 mg/dL [facility] GFR/1.73 sq M.predicted MDRD (S/P/Bld) [Vol rate/Area] 21.3 mL/min/{1.73_m2} Low - PINF [facility] Glucose [Mass/Vol] 245 mg/dL High 70 - 100 mg/dL [facility] Interpretation and review of laboratory results Abnormal [facility] Potassium [Moles/Vol] 3.1 mmol/L Low 3.5 - 5.1 mmol/L [facility] Sodium [Moles/Vol] 131 mmol/L Low 135 - 145 mmol/L [facility] Urea nitrogen [Mass/Vol] 88 mg/dL High 9 - 20 mg/d L [facility] Anion gap [Moles/Vol] 14 mmol/L High 3 - 13 mmol/L [facility] Calcium [Mass/Vol] 7.8 mg/dL Low 8.4 - 10. 4 mg/dL [facility] Chloride [Moles/Vol] 102 mmol/L 98 - 10 7 mmol/L [facility] CO2 [Moles/Vol] 20 mmol/L Low 22 - 30 mmol/L [facility] Creatinine [Mass/Vol] 2.87 mg/dL High 0.66 - 1.25 mg/dL [facility] GFR/1.73 sq M.predicted MDRD (S/P/Bld) [Vol rate/Area] 23.0 mL/min/{1.73_m2} Low - PINF [facility] Glucose [Mass/Vol] 121 mg/dL High 70 - 100 mg/dL [facility] Potassium [Moles/Vol] 3.6 mmol/L 3.5 - 5.1 mmol/L [facility] Sodium [Moles/Vol] 136 mmol/L 135 - 145 mmol/L [facility] Urea nitrogen [Mass/Vol] 78 mg/dL High 9 - 20 mg/d L [facility] CBC (HEMOGRAM)on 03-27-2023 Erythrocyte distribution width (RBC) [Ratio] 14.9 % High 11.5-14.5 [facility] Comment on above: Performed By: #### L [id number] ####Mulcher Operator: TONI NAVA ([id number])[address] ERYTHROCYTE MEAN CORPUSCULAR HEMOGLOBIN CONCENTRATION (G/DL) BY AUTOMATED 32.7 % Normal 32.0-36.0 [facility] Comment on above: Performed By: #### L [id number] ####Mulcher Operator: TONI NAVA ([id number])[address] Hematocrit (Bld) [Volume fraction] 28.3 % Low 40.0-52.0 [facility] Comment on above: Performed By: #### L [id number] ####Mulcher Operator: TONI NAVA ([id number])[facility])[address] [place] [address] Hemoglobin (Bld) [Mass/Vol] 9.3 g/dL Low 13.0-18.0 [facility] Comment on above: Performed By: #### L [id number] ####Mulcher Operator: TONI NAVA ([id number])[facility])[address] [place] [address] MCH (RBC) [Entitic mass] 28.6 pg Normal 26.0-34.0 [facility] Comment on above: Performed By: #### L [id number] ####Mulcher Operator: TONI NAVA ([id number])[facility] ([facility])[address] [place] [address] MCV (RBC) [Entitic vol] 87.4 fL Normal 80.0-98.0 [facility] Comment on above: Performed By: #### L [id number] ####Mulcher Operator: TONI NAVA ([id number])[facility] ([facility])[address] [place] [address] Platelet mean volume (Bld) [Entitic vol] 8.2 fL Normal 7.4-12.4 [facility] Comment on above: Performed By: #### L [id number] ####Mulcher Operator: TONI NAVA ([id number])[facility] ([facility])[address] [place] [address] PLATELETS (10*3/UL) IN BLOOD AUTOMATED COUNT 205 10*3/uL Normal 140-440 [facility] Comment on above: Performed By: #### L [id number] ####Mulcher Operator: TONI NAVA ([id number])[facility] ([facility])[address] [place] [address] RBC (Bld) [#/Vol] 3.24 10*6/uL Low 4.40-5.90 [facility] Comment on above: Performed By: #### L [id number] ####Mulcher Operator: TONI NAVA ([id number])[facility] ([facility])[address] [place] [address] WBC (Bld) [#/Vol] 13.9 10*3/uL High 3.6-10.7 [facility] Comment on above: Performed By: #### L [id number] ####Mulcher Operator: TONI NAVA ([id number])[facility] ([facility])[address] [place] [address] CBC panel Auto (Bld)on 03-27 Erythrocyte distribution width (RBC) [Ratio] 14.9 % High 11.5 - 14.5 % [facility] Hematocrit (Bld) [Volume fraction] 28.3 % Low 40.0 - 52.0 % [facility] Hemoglobin (Bld) [Mass/Vol] 9.3 g/dL Low 13.0 - 18.0 g/dL [facility] Interpretation and review of laboratory results Abnormal [facility] MCH (RBC) [Entitic mass] 28.6 pg 26. 0 - 34.0 pg [facility] MCHC (RBC) [Mass/Vol] 32.7 % 32.0 - 36.0 % [facility] MCV (RBC) [Entitic vol] 87.4 fL 80.0 - 98.0 fL [facility] Platelet mean volume (Bld) [Entitic vol] 8.2 fL 7.4 - 12.4 fL [facility] Platelets (Bld) [#/Vol] 205 10*3/uL 140 - 440 10*3/uL [facility] RBC (Bld) [#/Vol] 3.24 10*6/uL Low 4.40 - 5.9 0 10*6/uL [facility] WBC (Bld) [#/Vol] 13.9 10*3/uL High 3.6 - 10.7 10*3/uL [facility] Consulton 03-27-2023 Consult [facility] [address] [place] [address] Consult Note Patient's Name: Robert Lipscomb 4:43 PM 03/27/2023 Reason for Consult: DEIDRE CKDIIIB ATTENDING/ADMITTING PHYSICIAN:Donya Childress MD Assessment: 67 y.o. 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 Non oliguric DEIDRE ATN in setting of hemodynamic changes and decraese IV depletion due to diarrhea net negative 3 L for 48 hrs Hold marleni Barb; US LR 50ml/hr Albumin 25 gm bid 2. Volume IV volume deplted third spacing 3. Electrolytes:K 3.6 no nee to replete 4. Acid/base: AGMA added LR 5. MBD: check uric acid 6. Anemia:acute on chronic 7. Medications:dose eGFR35 Plan: -renal US -urine studies -IV LR Thank you for allowing me to participate in care of Robert Lipscomb. Please do not hesitate to contact me at [phone] or through Epic chat with any concerns. Fausto Kilpatrick MD 4:43 PM 03/27/2023 Chief Complaint: stephane WARNER History Obtained From: patient History of Present Ilness: Robert Lipscomb is a 67 y.o. 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 Hypotension: +++SBP 150-->110/. Multiple loose BM's overnight. 2. 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 Nephrotoxins: none 4. Surgeries: +++ s/p CABG x 3 POD # 6. ROS Constitutional: Positive for fatigue. Negative for chills, diaphoresis and fever. Respiratory: Negative for cough, shortness of breath and wheezing. Cardiovascular: Positive for leg swelling. Negative for chest pain and palpitations. Gastrointestinal: Negative for abdominal distention and abdominal pain. Neurological: Negative for dizziness, syncope and light-headedness. Past Medical History: Diagnosis Date Anemia Arthritis Coronary artery disease DM (diabetes mellitus) (HCC) History of transfusion HTN (hypertension) Hyperlipidemia RBBB Testicular cancer (HCC) Past Surgical History: Procedure Laterality Date ADENOIDECTOMY APPENDECTOMY COLONOSCOPY CORONARY STENT PLACEMENT 2004 LAP,INGUINAL HERNIA REPR,INITIAL (HISTORICAL) TONSILLECTOMY No family history on file. reports that he has never smoked. He has never used smokeless tobacco. He reports that he does not currently use alcohol. He reports that he does not use drugs. Allergies: Amoxicillin, Amoxicillin-pot clavulanate, Atorvastatin, Metformin hcl, Other, Pollen extract, Clavulanic acid, and Metformin Current Medications: Current Facility-Administere d Medications Medication Dose Route Frequency Provider Last Rate Last Admin acetaminophen (Tylenol) tablet 1,000 mg 1,000 mg Oral q8h MARCK Red CNP 1,000 mg at 03/27/23 1317 aspirin chewable tablet 81 mg 81 mg Oral Daily MARCK Red TELECOM BILLING ANALYST 81 mg at 03/27/23 0801 atenolol (Tenormin) tablet 50 mg 50 mg Oral Daily MARCK Red TELECOM BILLING ANALYST 50 mg at 03/26/23 1124 calcium gluconate 2000 mg in 100 mL IVPB premix 2,000 mg IntraVENous PRN MARCK Red CNP dextrose 5 % infusion 100 mL/hr IntraVENous PRN MARCK Red CNP dextrose 50 % solution 12.5 g 12.5 g IntraVENous PRN MARCK Red TELECOM BILLING ANALYST 25 g at 03/26/23 0138 glucagon (human recombinant) injection 1 mg 1 mg IntraMUSCular PRN MARCK Red CNP glucose oral gel 15 g 15 g Oral PRN MARCK Red CNP heparin injection 5,000 Units 5,000 Units SubCUTAneous BID MARCK Red CNP 5,000 Units at 03/27/23 0801 insulin glargine (Lantus) injection 36 Units 36 Units SubCUTAneous q AM Felipa White MD 36 Units at 03/27/23 0807 Insulin Lispro (Humalog) injection 0-12 Units 0-12 Units SubCUTAneous TID Willem Mayo MD 2 Units at 03/27/23 1235 Insulin Lispro (Humalog) injection 14 Units 14 Units SubCUTAneous TID Felipa White MD 14 Units at 03/27/23 1235 ipratropium-albutero l (Duo-Neb) 0.5-2.5 mg/3 mL nebulizer solution 3 mL 3 mL Nebulization TID PRN MARCK Red CNP Lidocaine 4 % patch 1 patch 1 patch Topical Daily MARCK Red CNP 1 patch at 03/27/23 0801 melatonin tablet 10 mg 10 mg Oral Nightly MARCK Red CNP 10 mg at 03/26/23 203 ondansetron ODT (Zofran-ODT) disintegrating tablet 4 mg 4 mg Oral q8h PRN MARCK Red CNP Or ondansetron (Zofran) injection 4 mg 4 mg IntraVENous q6h PRN MARCK Red CNP 4 mg at 03/22/23 1051 oxyCODONE (Roxicodone) immediate release tablet 5 mg 5 mg Oral q6h PRN MARCK Red CNP 5 mg at 03/27/23 0526 Or oxyCODONE (more content not included)... Normal [facility] - Chemistry and C hemistry - challengeon 03-27-2023 Glucose [Mass/Vol] 265 mg/dL High 70 - 100 mg/dL [facility] Procalcitonin [Mass/Vol] 2.17 ng/mL High 0.0 0 - 0.09 ng/mL [facility] Glucose [Mass/Vol] 189 mg/dL High 70 - 100 mg/dL [facility] Glucose [Mass/Vol] 191 mg/dL High 70 - 100 mg/dL [facility] Glucose [Mass/Vol] 163 mg/dL High 70 - 100 mg/dL [facility] Magnesium [Mass/Vol] 2.5 mg/dL High 1.6 - 2 .3 mg/dL [facility] MAGNESIUMon 03-27-2023 Magnesium [Mass/Vol] 2.5 mg/dL High 1.6-2.3 [facility] Comment on above: Performed By: #### L AB15, [id number] #### Mulcher Operator: TONI NAVA ([id number]) [facility] ([facility]) [address] [place] [address] No Panel Informationon 03-27 Interpretation and review of laboratory results Abnormal [facility] Interpretation and review of laboratory results Abnormal [facility] Interpretation and review of laboratory results Abnormal [facility] Interpretation and review of laboratory results Abnormal [facility] Interpretation and review of laboratory results Abnormal [facility] PNEUMONIA PCR PANELon 2022 PNEUMONIA PCR PANEL STAPHYLOCOCCUS AUREUS Reference Not Detected Not Detected STREPTOCOCCUS AGALACTIAE Reference Not Detected Not Detected STREPTOCOCCUS PNEUMONIAE Reference Not Detected Not Detected STREPTOCOCCUS PYOGENES Reference Not Detected Not Detected HAEMOPHILUS INFLUENZAE Reference Not Detected Not Detected MORAXELLA CATARRHALIS Reference Not Detected Not Detected ACINETOBACTER BAUMANNII COMPLEX Reference Not Detected Not Detected ENTEROBACTER CLOACAE COMPLEX Reference Not Detected Not Detected ESCHERICHIA COLI Reference Not Detected Not Detected KLEBSIELLA (ENTEROBACTER) AEROGENES Reference Not Detected Not Detected KLEBSIELLA OXYTOCA Reference Not Detected Not Detected KLEBSIELLA PNEUMONIAE Reference Not Detected Not Detected PROTEUS SPP Reference Not Detected Not Detected PSEUDOMONAS AERUGINOSA Reference Not Detected Not Detected SERRATIA MARCESCENS Reference Not Detected Not Detected CHLAMYDIA PNEUMONIAE Reference Not Detected Not Detected LEGIONELLA PNEUMOPHILA Reference Not Detected Not Detected MYCOPLASMA PNEUMONIAE Reference Not Detected Not Detected ADENOVIRUS Reference Not Detected Not Detected CORONAVIRUS Reference Not Detected Not Detected HUMAN METAPNEUMOVIRUS Reference Not Detected Not Detected HUMAN RHINOVIRUS/ENTEROVIR US Reference Not Detected Not Detected INFLUENZA A Reference Not Detected Not Detected INFLUENZA B Reference Not Detected Not Detected PARAINFLUENZA VIRUS Reference Not Detected Not Detected RESPIRATORY SYNCYTIAL VIRUS Reference Not Detected Not Detected ORDER COMMENTS: Methodology: Multiplex PCR This panel does not test for SARS-CoV-2 (Covid-19). The following antimicrobial resistance gene is reported if the appropriate organism is detected: mecA. The following antimicrobial resistance genes are reported if detected and the appropriate organisms are detected: CTX-M, IMP, KPC, NDM, OXA-48-like, and VIM. Normal [facility] Comment on above: Performed By: #### L AB15, [id number] #### Mulcher Operator: TONI NAVA ([id number]) [facility] [address] [place] [address] PROCALCITONIN TESTon 023 PROCALCITONIN 2.17 ng/mL High 0.00-0.09 [facility] Comment on above: Result Comment: ORDE R COMMENTS: PCT <0.50 = Low risk of severe sepsis and/or septic shock. PCT >2.00 = High risk of severe sepsis and/or septic shock. Performed By: #### L [id number] ####Mulcher Operator: TONI NAVA ([id number])[facility] ([facility])[address] [place] [address] Procalcitonin [Mass/Vol]on Interpretation and review of laboratory results Abnormal [facility] Progress Noteon 03-27-2023 Progress Note Nutrition Assessment Type and Reason for Visit: Reassess Nutrition Recommendations/Plan : Continue 4 carb choices (75 g/meal) diet as ordered. Can also consider regular diet to promote p.o. intake Per MNT protocol, will modify ONS to Magic Cup BID to promote ONS and overall p.o. intake (provides 290 kcal, 9 g protein each) Pt and spouse received diet education as described in assessment. They have reference materials and [facility] RD phone number that was previously provided RD will continue to monitor overall nutrition status and follow weekly Diet Education: Educated on heart healthy diet Learners: Patient and Significant Other Readiness: Acceptance Method: Explanation and Handout Response: Verbalizes Understanding Contact name and number provided. Malnutrition Assessment: Malnutrition Status: At risk for malnutrition (Comment) Context: Acute Illness Findings of the 6 clinical characteristics of malnutrition: Energy Intake: 50% or less of estimated energy requirements for 5 or more days Weight Loss: No significant weight loss Body Fat Loss: No significant body fat loss Muscle Mass Loss: No significant muscle mass loss Fluid Accumulation: Mild Extremities Rn Birthing Strength: Not Performed Nutrition Assessment: Pt with PMH including CAD, drug-eluting stent to the RCA in 2004, RBBB, HTN, hyperlipidemia, anemia, and diabetes (A1C 7.8). Had presentation with mild chest pain prompting and subsequent stress test showed ischemia prompting coronary angiogram . LHC showed MV CAD. Pt presented 03/21 and underwent CABG x3. POD #6. Pt is seen in room with spouse present as well. They report that pt has had continued poor appetite and p.o. intake. Spouse describes intake of ~50% at lunch, states he is not consuming ONS. RD provided Ensure over ice for pt to try without improved tolerance- he is agreeable to trial of Magic Cup. Spouse recent has completed diabetes diet class, however pt and spouse are interested in heart healthy diet education at this time. RD provided heart healthy diet instruction including avoiding use of salt, limiting processed and other high sodium foods, limiting restaurant meals, reading nutrition labels, saturated vs unsaturated fats, choosing lean proteins and low fat diary, increasing fiber, whoe fruits and vegetable intake as well, choosing whole grains, etc. Pt was also advised that lowering his A1C would help to reduce his heart disease risk. Pt and spouse verbalized understanding and were without related questions at conclusion of education. Estimated Daily Nutrient Needs: Energy Requirements Based On: Kcal/kg Weight Used for Energy Requirements: [place]uney (25-30 kcal/kg) Weight for Energy Calculation (kg): 72.6 kg Total Energy Requirements (kcals/day): 2820-3276 Weight Used for Protein Requirements: [place]uney (1.2-1.5 g/kg) Weight in Kg Used for Protein Requirements: 72.6 kg Estimated Total Protein (g/day): 87-109 Estimated Daily Total Fluid (ml/day): or per MD Nutrition Related Findings: Nutrition History: Independent of feeding. Lives with: Spouse/significant other Teeth: Intact GI symptoms: Decreased appetite. Elmer Scale Score: 20 .Wound Type: Surgical Incision Net IO Since Admission: -1,781.18 mL [03/27/23 1504] Edema: RUE Edema: Trace, LUE Edema: Trace, RLE Edema: Mild pitting, slight indentation, LLE Edema: Mild pitting, slight indentation Bowel Sounds (All Quadrants): Active Abdomen Inspection: Rounded Last BM Date: 03/26/23 Labs and meds reviewed: acetaminophen, 1,000 mg, Oral, q8h aspirin, 81 mg, Oral, Daily atenolol, 50 mg, Oral, Daily heparin, 5,000 Units, SubCUTAneous, BID insulin glargine, 36 Units, SubCUTAneous, q AM insulin lispro, 0-12 Units, SubCUTAneous, TID WC Insulin Lispro, 14 Units, SubCUTAneous, TID WC Lidocaine, 1 patch, Topical, Daily melatonin, 10 mg, Oral, Nightly pantoprazole, 40 mg, Oral, qAM AC rosuvastatin, 20 mg, Oral, Nightly senna-docusate sodium, 2 tablet, Oral, Nightly BMP: Recent Labs 03/25/23 0322 03/26/23 0030 03/26/23 0145 03/26/23 0802 03/26/23 1315 03/27/23 0527 NA 138 140 -- 137 134* 136 K 3.7 3.3* -- 3.9 4.3 3.6 CL 102 103 -- 101 98 102 CO2 27 25 -- 22 21* 20* BUN 41* 51* -- 59* 63* 78* CREATININE 1.75* 2.35* -- 2.57* 2.52* 2.87* GLUCOSE 161* 48* < > 119* 244* 121* CALCIUM 8.5 9.0 -- 8.5 8.5 7.8* MG 1.9 2.7* -- -- -- 2.5* < > = values in this interval not displayed. Recent Labs 03/26/23 0805 03/26/23 1158 03/26/23 1732 03/27/23 0641 03/27/23 0807 03/27/23 1233 POCGLU 120* 185* 266* 163* 191* 189* Lab Results Component Value Date HGBA1C 7.9 (H) 03/11/2023 Lab Results Component Value Date LVEFPHYS 55 03/21/2023 Current Nutrition Therapies: Adult diet Regular; 5 carb choices (75 gm/meal) Current Oral Intake Average Meal Intake: 26-50%, 51-75%, 76-100% Average Supplements Intake: Refusing to take, 0% Anthropometric Measures: Height: (more content not included)... Normal [facility] Progress Note Physical Therapy Facility/Department: [facility] Daily Treatment Note NAME: Shane Lipscomb : 1955 Date of Service: 03/27/2023 Discharge Recommendations: Home with Home health PT PT Equipment Recommendations Equipment Needed: No Other: own rollator Assessment Requires PT Follow-Up: Yes Assessment: Pt continues to require min A for transfers and CGA for amb with rollator with mild path deviation but no LOB noted. Pt also continues to decline more appropriately sized rollator for amb reporting that he will use this one at home. Cues needed for sternal precautions particularly with transfer tasks. Rec home upon discharge, pt not agreeable to P& C exercises at this time. Performance Deficits/Impairments : Decreased functional mobility , Decreased ADL status, Decreased strength, Decreased endurance, Decreased ROM, Decreased posture Patient Diagnosis(es): The primary encounter diagnosis was CAD in [place] artery. Diagnoses of Aneurysm of ascending aorta without rupture (HCC) and Coronary atherosclerosis due to calcified coronary lesion (CODE) were also pertinent to this visit. has a past medical history of Anemia, Arthritis, Coronary artery disease, DM (diabetes mellitus) (HCC), History of transfusion, HTN (hypertension), Hyperlipidemia, RBBB, and Testicular cancer (HCC). has a past surgical history that includes lap,inguinal hernia repr,initial (historical); Colonoscopy; Appendectomy; Coronary stent placement (2004); Tonsillectomy; and Adenoidectomy. Restrictions Restrictions/Precaut ions Restrictions/Precaut ions: General Precautions, Fall Risk Required Braces or Orthoses?: No Position Activity Restriction Sternal Precautions: No Pushing, No Pulling, 10# Lifting Restrictions Other position/activity restrictions: PIV, tele. BP prior to treatment 107/42 --per RN pt has been running low today, and was cleared to work with PT. Vision/Hearing Subjective General Chart Reviewed: Yes Patient Assessed for Rehabilitation Services: Yes Response To Previous Treatment: Patient with no complaints from previous session. Family / Caregiver Present: Yes (Daughter and spouse present during treatment with pt approval) Diagnosis: CAD, s/p CABG x3 03/21 Follows Commands: Within Functional Limits Other (Comment): RN approved pt for PT treatment. General Comment Comments: PIV, tele Subjective Subjective: Pt seated in recliner with family present, just finished lunch tray. Not agreeable to P & C exercises but agreeable to amb. 2/3 recall of sternal precautions. Reports neck /back pain--chronic Patient Stated Goal: to feel better Pain Assessment Pain Type: Chronic pain Pain Location: Neck, Back Pain Interventions: Other (Comment) (mobility, change in position) Cognition/Orientatio n Overall Cognitive Status: WFL Overall Orientation Status: Within Normal Limits Objective Bed mobility Sit to Supine: Moderate assistance Scooting: Supervision (seated scooting supv with VC to maintain sternal precautions.) Transfers Sit to Stand: Minimal Assistance Stand to sit: Minimal Assistance Comment: Min A from recliner and EOB. increased time to complete tasks and verbal + manual cues to maintain sternal precautions. Reports dizziness intially with standing, improves prior to amb. Ambulation Ambulation: Yes Ambulation 1 Surface 1: Level tile Device 1: Rollator Assistance 1: Contact guard Quality of Gait 1: slow michelle, uneven step length Quality of Gait Comment 1: decrease step length, flexed posture Distance (ft) 1: 160'x1 Comments 1: Intermittent standing rest breaks with amb, cues for improved posture Balance Sitting - Static: Good Sitting - Dynamic: Good Standing - Static: Good, - Standing - Dynamic: Good, - Plan Times per Week: 5-7x Plan Weeks: 2 wks Current Treatment Recommendations: Strengthening, Balance Training, Gait Training, Stair training, Functional Mobility Training, Transfer Training, ADL/Self-care Training, IADL Training, Endurance Training, Equipment Evaluation, Education, & procurement, Patient/Caregiver Education & Training, Safety Education & Training, Home Exercise Program Safety Safety Devices Safety Devices in Place: Yes Type of Devices: All fall risk precautions in place, Call light within reach, Gait belt, Nurse notified, No alarms engaged upon entry into room, Left in bed Restraints Restraints Initially in Place: No Outcomes Score AM-PAC Score AM-PAC Inpatient Mobility Raw Score (No Stairs) : 15 Goals Encounter Problems Encounter Problems (Active) Cardiac Patient will perform bed mobility with independence in order to improve independence and prepare for out of bed mobility. (Progressing) Start: 03/22/23 Expected End: 04/05/23 Patient will complete sit to stand transfer with modified independence to LRD in order to improve safety and prepare for out of bed mobility. ( (more content not included)... [facility] Progress Note Department of Internal Medicine Division of Endocrinology, Diabetes, & Metabolism Endocrinology Note Patient Name: Robert Lipscomb : 1955 AGE: 67 y.o. Room/Bed: T1-126/T1-126 A Admission Date: 03/21/2023 Visit Date: 03/27/2023 Reason for Endocrine Consult: post op heart Provider/Team Requesting Consult: cts PCP: TEMO RODRIGUEZ Outpt Gluing Crew Leader: No ASSESSMENT: Type 2 DM with with hyperglycemia with usp insulin use Recent hypoglycemia DEIDRE on CKD S/p CABG Obesity Body mass index is 44.3 kg/m?. PLAN: No further hypoglycemia episodes GFR remains low Continue Lantus 36 units every morning - gave new dose today Increase Humalog to 14 units before meals with medium dose correction before meals Discussed insulin regimen. ICU goal <180 GMF goal <150 POCT BG qAC and HS Hypoglycemia per protocol Carb controlled diet Can resume GLP-1 RA (Victoza) outpt. Consider switching to weekly GLP-1 RA outpt. Stop Prandin. Pt will start Humalog at home. In future pt will benefit from SGLT-2 Inhibitor and CGM. ANTICIPATED ENDOCRINE HOME GOING RECOMMENDATIONS: Optimized for Discharge from Endocrine standpoint: No Home Going Endocrine Rx Recommendations-- Tresiba and Humalog with doses TBD -- will need rx for Humalog and pen needles Resume Victoza 1.8 mg daily Stop Prandin Outpt Follow Up-- PCP SUBJECTIVE/HPI: CHIEF COMPLAINT: s/p CABG Type of DM: 2 Onset of DM: over 10 years per patient Home DM Medication Regimen: per chart lantus pens 70 am and 50 pm, victoza 1.8 mg daily; prandin 4 mg tid meals (not taking) DM control (last A1c/glucose data): Lab Results Component Value Date HGBA1C 7.9 (H) 03/11/2023 -no hypoglycemia -BG higher -no more diarrhea -appetite variable; had cookie for BF today -ambulated a little today -fatigued -Estimated Creatinine Clearance: 32.8 mL/min (A) (by C-G formula based on SCr of 2.87 mg/dL (H)). Glucose Date/Time Value Ref Range Status 03/27/2023 08:07 AM 191 (H) 70 - 100 mg/dL Final 03/27/2023 06:41 AM 163 (H) 70 - 100 mg/dL Final 03/26/2023 05:32 PM 266 (H) 70 - 100 mg/dL Final 03/26/2023 11:58 AM 185 (H) 70 - 100 mg/dL Final 03/26/2023 08:05 AM 120 (H) 70 - 100 mg/dL Final 03/26/2023 05:00 AM 114 (H) 70 - 100 mg/dL Final Review of Systems ROS negative except for those mentioned in HPI. OBJECTIVE: Vitals: 03/27/23 0927 03/27/23 0928 03/27/23 0941 03/27/23 1000 BP: (!) 89/31 (!) 83/29 (!) 95/34 (!) 101/41 Pulse: 62 61 64 64 Resp: Temp: TempSrc: SpO2: Weight: Height: PF: Physical Exam Vitals and nursing note reviewed. Constitutional: General: He is awake. He is not in acute distress. Appearance: He is obese. Cardiovascular: Rate and Rhythm: Normal rate and regular rhythm. Heart sounds: Normal heart sounds. Pulmonary: Effort: Pulmonary effort is normal. No respiratory distress. Breath sounds: Normal breath sounds. Abdominal: Palpations: Abdomen is soft. Tenderness: There is no abdominal tenderness. Skin: General: Skin is warm and dry. Comments: Intact chest incision Neurological: General: No focal deficit present. Mental Status: He is alert. Psychiatric: Mood and Affect: Mood normal. Behavior: Behavior is slowed. 24 hour intake/output: Intake/Output Summary (Last 24 hours) at 03/27/2023 1013 Last data filed at 03/26/2023 1803 Gross per 24 hour Intake 1550 ml Output -- Net 1550 ml Diet: Adult diet Regular; 5 carb choices (75 gm/meal) Medications (as per EMR): HomeMeds: Current Outpatient Medications Medication Instructions amLODIPine (Norvasc) 5 MG tablet Daily Apoaequorin (Prevagen) 10 MG capsule No dose, route, or frequency recorded. aspirin 324 mg, Oral, Daily atenolol (Tenormin) 50 MG tablet No dose, route, or frequency recorded. chlorhexidine (Peridex) 0.12 % solution 15 mL, Mouth/Throat, Use night before and morning of surgery enalapril (Vasotec) 20 MG tablet No dose, route, or frequency recorded. insulin glargine (Lantus SoloStar) 100 UNIT/ML pen SubCUTAneous, 70 units in the morning, 50 units in the evening liraglutide (Victoza) 18 MG/3ML injection No dose, route, or frequency recorded. mupirocin (Bactroban) 2 % ointment Apply liberal amount per nostril the night before surgery and then again the morning of surgery nitroglycerin (NITROSTAT) 0.4 mg, SubLINGual, Every 5 min PRN repaglinide (PRANDIN) 4 mg, 3 times daily before meals rosuvastatin (Crestor) 20 MG tablet Nightly Scheduled Meds:acetaminophen, 1,000 mg, Oral, q8h aspirin, 81 mg, Oral, Daily atenolol, 50 mg, Oral, Daily heparin, 5,000 Units, SubCUTAneous, BID insulin glargine, 36 Units, SubCUTAneous, q AM insulin lispro, 0-12 Units, SubCUTAneous, TID WC Insulin Lispro, 12 Units, SubCUTAneous, TID WC lactated ringers, 500 mL, IntraVENous, Once Lidocaine, 1 patch, Topical, Daily melatonin, 10 mg, Oral, Nightly pantoprazole, 40 mg, Or (more content not included)... Normal [facility] Progress Note Attestation signed by Kuldeep Alvarado MD at 03/27/2023 1:19 PM I have personally performed a face to face diagnostic evaluation on this patient today on 03/27/23. Labs, imaging studies, and electronic medical record notes on In Flow have been reviewed by me. This note documented and discussed by the []sergeant of officers []Fellow [x] MARIANO reflects my history, exam and medical decision making. I have reviewed and agree with the care plan. Changes were made in the orders as necessary. ROS documentation was reviewed and negative unless otherwise stated in the HPI. My history, exam, assessment and plan are as follows: Time spent for coordination of care: a subsequent visit: 35 minutes (Level II) Awake, in chair, no fevers/chills, no invasive lines, has a cough Resp unlabored Severe CAD 03/21 s/p CABG x 3 Expected anemia post op HTN, HLD DEIDRE Cr 2.57, baseline Cr 1.37 CKD3 DM2 with hyperglycemia Obesity class III Monitor CBC and renal function, IVF hydration Check resp culture and pneumonia pcr, procal Cardiothoracic Surgery/CCM Progress Note PATIENT NAME: Robert Lipscomb DATE: 03/27/23 HPI: Mr. Robert Lipscomb is a 67 year old male patient with a PMHx that includes CAD s/p SUZETTE tp RCA (2004), RBBB, HTN, HLD, anemia and diabetes (A1c 7.9). He was referred to CT Surgery by Dr. Armendariz. Patient had underwent coronary cath and was found to have severe multivessel CAD. He was seen in the OP setting by Dr. Childress. He consented and was scheduled for CABG on 03/21/23. Surgery/Procedure: 03/21/23: Dr. Childress- CABGx3 (PIERSON-LAD, SVG-OM, SVG-RPDA), LEVH Interval History: 03/26/23, POD# 06 no acute changes overnight - pt does have a productive cough no fevers - remains on 2L NC O2 - creat still elevated - pain well controlled. Review of Systems Constitutional: Negative for diaphoresis, fatigue and fever. Respiratory: Negative for cough, shortness of breath and wheezing. Cardiovascular: Negative for chest pain, palpitations and leg swelling. Gastrointestinal: Negative for abdominal distention, constipation and diarrhea. Skin: Negative for color change, pallor and rash. Objective: Last BM Date: 03/26/23 Negative 2.2L Vitals: BP: (!) 112/49, MAP (mmHg): 67, BP Method: Automatic Heart Rate: 66 Resp: 16 Temp: 36.9 ?C (98.5 ?F), Temp Source: Temporal BMI (Calculated): 43.4 CXR: BMP: Recent Labs 03/25/23 0322 03/26/23 0030 03/26/23 0802 03/26/23 1315 03/27/23 0527 NA 138 140 137 134* 136 K 3.7 3.3* 3.9 4.3 3.6 CL 102 103 101 98 102 CO2 27 25 22 21* 20* BUN 41* 51* 59* 63* 78* CREATININE 1.75* 2.35* 2.57* 2.52* 2.87* CALCIUM 8.5 9.0 8.5 8.5 7.8* MG 1.9 2.7* -- -- 2.5* CBC: Recent Labs 03/26/23 0030 03/26/23 0802 03/27/23 05 WBC 18.0* 14.8* 13.9* HGB 11.1* 10.8* 9.3* HCT 33.6* 33.1* 28.3* PLT 275 229 205 MCV 85.0 86.5 87.4 RDW 14.5 14.6* 14.9* INR: No results for input(s): INR in the last 72 hours. Physical Exam Cardiovascular: Rate and Rhythm: Normal rate and regular rhythm. Heart sounds: Normal heart sounds. No murmur heard. No friction rub. Pulmonary: Effort: Pulmonary effort is normal. Skin: General: Skin is warm and dry. Capillary Refill: Capillary refill takes less than 2 seconds. Findings: Bruising and ecchymosis present. Neurological: Mental Status: He is alert. Psychiatric: Behavior: Behavior is cooperative. Assessment: CAD s/p CABGx3 HTN HLD DM (A1c 7.9) RBBB Post operative Pulm Management: Normal Post-operative Course Post-operative Atrial Fibrillation: []Yes [x] No Acute blood loss anemia/consumptive thrombocytopenia Plan: Patient Status: Telemetry Creatinine bumped -1.78->1.75->2.35 ->2.85 Gentle hydrate today DC all nephrotoxic drugs DC lasix. WBC 13 cough noted no fevers or tachy CXR shows atelectasis in the bases - potentially start unasym if ok with CCM Continue aspirin, statin and BB. Encourage PO intake. Endocrinology DVT prophy. Endocrinology following for blood glucose management. PT/OT: Home with home health PT (10/03/23) Pulmonary hygiene: IS and Acapella GI prophy: PO protonix DVT prophy:TEDs, SCDs, and Heparin SubQ Disposition: Home by the end of the week after renal recovery Central Line: []Yes [x] No Arterial Line: []Yes [x] No Meyer: []Yes [x] No Restraints: []Yes [x] No Patient discussed and plan of day developed from multidisciplinary rounds between Cardiothoracic Surgery (Cardiothoracic Surgeon, MARIANO) and Critical Care Attending Cardiac Core Medications: ASA, Statin, and BB EF: 55% (03/21/23) Blood Conservation: None noted in post-operative period Blindstitch Hemmer: Dr. Armendariz Electronically signed by (more content not included)... Normal [facility] RESPIRATORY CULTURE AND STAI Non 03-27-2023 RESPIRATORY CULTURE AND STAIN RESPIRATORY CULTURE Reference Many respiratory faye present. GRAM STAIN RESULT (A) Reference (A) Moderate Polymorphonuclear leukocytes per low power field Few Epithelial cells per low power field Few Gram positive cocci in clusters Rare Gram negative bacilli [ S = SUSCEPTIBLE R = RESISTANT I = INTERMEDIATE S-DD = Susceptible-dose dependent NS = Non-susceptible NO = No Interpretation ] Normal [facility] Comment on above: Performed By: #### L [id number], [id number] #### Mulcher Operator: TNOI NAVA ([id number]) [facility]) [address] [place] [address] Respiratory pathogens DNA an d RNA panel VITO+non-probe (Lower resp)Ordered By: Tess Dobson on 03-27-2023 Acinetobacter baumannii complex Not detected Not Detected [facility] Adenovirus Not detected Not Detected [facility] Chlamydia pneumoniae Not detected Not Detected [facility] Enterobacter cloacae complex Not detected Not Detected [facility] Escherichia coli Not detected Not Detected [facility] FLUAV RNA VITO+non-probe Ql (Lower resp) Not detected Not Detected [facility] FLUBV RNA VITO+non-probe Ql (Lower resp) Not detected Not Detected [facility] Haemophilus influenzae Not detected Not Detecte d [facility] Human Metapneumovirus Not detected Not Detected [facility] Human Rhinovirus/Enterovirus Not detected Not Detected [facility] Interpretation and review of laboratory results Normal [facility] Klebsiella (Enterobacter) aerogenes Not detected Not Detected [facility] Klebsiella oxytoca Not detected Not Detected [facility] Klebsiella pneumoniae Not detected Not Detected [facility] Legionella pneumophila Not detected Not Detecte d [facility] Moraxella catarrhalis Not detected Not Detected [facility] Mycoplasma pneumoniae Not detected Not Detected [facility] Parainfluenza virus Not detected Not Detected [facility] Proteus spp Not detected Not Detected [facility] Pseudomonas aeruginosa Not detected Not Detecte d [facility] RSV RNA VITO+probe Ql (Resp) Not detected Not Detected [facility] S. agalactiae Org specific cx Ql (Vag fld) Not detected Not Detected [facility] SARS-CoV-2 (COVID-19) RNA VITO+non-probe Ql (Nph) Not detected Not Detected [facility] Serratia marcescens Not detected Not Detected [facility] Staphylococcus aureus Not detected Not Detected [facility] Streptococcus pneumoniae Not detected Not Detec jesenia [facility] Streptococcus pyogenes Not detected Not Detecte d [facility] XR CHEST 1 VIEWon 03-27-2023 XR CHEST 1 VIEW Patient Name: ROBERT LIPSCOMB : 1955 Exam Date/Time: 03/27/2023 05:18 Procedure: XR CHEST 1 VIEW Ordering Provider: JACINTO KYLE Reason For Exam: DYSPNEA CHEST - PORTABLE: CLINICAL INDICATION: Respiratory distress for follow up TECHNIQUE: Portable AP COMPARISON: One day ago FINDINGS: Heart/Mediastinum: Unchanged Lungs/Pleura: Elevation of the right hemidiaphragm again noted. Increased density at the lung bases is likely atelectasis. Sternal wires are noted. IMPRESSION: Atelectasis at the lung bases. Report Dictated on Electronically Signed By: Tc Davis MD Electronically Signed Date/Time: 03/27/2023 5:30 AM EDT Normal [facility] XR Chest Single viewon 03-27 [facility] Radiology Study observation (narrative) [facility] jonny BASIC METABOLIC PANELon 10-0 Anion gap [Moles/Vol] 15 mmol/L High 3-13 [facility] Comment on above: Performed By: #### L [id number] ####Mulcher Operator: OTNI NAVA ([id number])[facility] ([facility])[address] [place] [address] Calcium [Mass/Vol] 8.5 mg/dL Normal 8.4-10.4 [facility] Comment on above: Performed By: #### L AB15 ####Mulcher Operator: TONI NAVA ([id number])[facility] [place] [address] Chloride [Moles/Vol] 98 mmol/L Normal 98-107 [facility] Comment on above: Performed By: #### L AB15 ####Mulcher Operator: TONI NAVA ([id number])[facility] ([facility])[address] [place] [address] CO2 [Moles/Vol] 21 mmol/L Low 22-30 [facility] Comment on above: Performed By: #### L AB15 ####Mulcher Operator: TONI NAVA ([id number])[facility] [place] [address] Creatinine [Mass/Vol] 2.52 mg/dL High 0.66-1.25 [facility] Comment on above: Performed By: #### L AB15 ####Mulcher Operator: TONI NAVA ([id number])[facility] ([facility])[address] [place] [address] [place] GLOMERULAR FILTRATION RATE ML/MIN/1.73 SQ M.PREDICTED 26.9 mL/min/1.73m*2 Low >60.0 [facility] Comment on above: Result Comment: Calc ulation based on the Chronic Kidney Disease Epidemiology Collaboration (CKD-EPI) equation refit without adjustment for race Performed By: #### L AB15 ####Mulcher Operator: TONI NAVA ([id number])[facility] [place] [address] [place] Glucose [Mass/Vol] 244 mg/dL High 70-100 [facility] Comment on above: Performed By: #### L AB15 ####Mulcher Operator: TONI NAVA ([id number])[facility] [place] [address] [place] Potassium [Moles/Vol] 4.3 mmol/L Normal 3.5-5.1 [facility] Comment on above: Performed By: #### L AB15 ####Mulcher Operator: TONI NAVA ([id number])[facility] [place] [address] [place] Sodium [Moles/Vol] 134 mmol/L Low 135-145 [facility] Comment on above: Performed By: #### L AB15 ####Mulcher Operator: TONI NAVA ([id number])[facility] [place] [address] Urea nitrogen [Mass/Vol] 63 mg/dL High 9-20 [facility] Comment on above: Performed By: #### L AB15 ####Mulcher Operator: TONI NAVA ([id number])[facility] [place] [address] Anion gap [Moles/Vol] 14 mmol/L High 3-13 [facility] Comment on above: Performed By: #### L AB15 ####Mulcher Operator: TONI NAVA ([id number])[facility] [place] [address] [place] Calcium [Mass/Vol] 8.5 mg/dL Normal 8.4-10.4 [facility] Comment on above: Performed By: #### L AB15 ####Mulcher Operator: TONI NAVA ([id number])[facility] [place] [address] [place] Chloride [Moles/Vol] 101 mmol/L Normal 98-107 [facility] Comment on above: Performed By: #### L AB15 ####Mulcher Operator: TONI NAVA ([id number])[facility] [place] [address] [place] CO2 [Moles/Vol] 22 mmol/L Normal 22-30 [facility] Comment on above: Performed By: #### L AB15 ####Mulcher Operator: TONI NAVA ([id number])[facility])[address] [place] [address] Creatinine [Mass/Vol] 2.57 mg/dL High 0.66-1.25 [facility] Comment on above: Performed By: #### L AB15 ####Mulcher Operator: TONI NAVA ([id number])[facility])[address] [place] [address] GLOMERULAR FILTRATION RATE ML/MIN/1.73 SQ M.PREDICTED 26.2 mL/min/1.73m*2 Low >60.0 [facility] Comment on above: Result Comment: Calc ulation based on the Chronic Kidney Disease Epidemiology Collaboration (CKD-EPI) equation refit without adjustment for race Performed By: #### L AB15 ####Mulcher Operator: TONI NAVA ([id number])[facility] ([facility])[address] [place] [address] Glucose [Mass/Vol] 119 mg/dL High 70-100 [facility] Comment on above: Performed By: #### L AB15 ####Mulcher Operator: TONI NAVA ([id number])[facility])[address] [place] [address] Potassium [Moles/Vol] 3.9 mmol/L Normal 3.5-5.1 [facility] Comment on above: Performed By: #### L AB15 ####Mulcher Operator: TONI NAVA ([id number])[facility])[address] [place] [address] [place] Sodium [Moles/Vol] 137 mmol/L Normal 135-145 [facility] Comment on above: Performed By: #### L AB15 ####Mulcher Operator: TONI NAVA ([id number])[facility])[address] [place] [address] [place] Urea nitrogen [Mass/Vol] 59 mg/dL High 9-20 [facility] Comment on above: Performed By: #### L AB15 ####Mulcher Operator: TONI NAVA ([id number])[facility] ([facility])[address] [place] [address] Anion gap [Moles/Vol] 12 mmol/L Normal 3-13 [facility] Comment on above: Performed By: #### L AB15, [id number] #### Mulcher Operator: TONI NAVA ([id number]) [facility] [address] [place] [address] Calcium [Mass/Vol] 9.0 mg/dL Normal 8.4-10.4 [facility] Comment on above: Performed By: #### L AB15, [id number] #### Mulcher Operator: TONI NAVA ([id number]) [facility] [address] [place] [address] Chloride [Moles/Vol] 103 mmol/L Normal 98-107 [facility] Comment on above: Performed By: #### L AB15, [id number] #### Mulcher Operator: TONI NAVA ([id number]) [facility] ([facility]) [address] [place] [address] [place] CO2 [Moles/Vol] 25 mmol/L Normal 22-30 [facility] Comment on above: Performed By: #### L AB15, [id number] #### Mulcher Operator: TONI NAVA ([id number]) [facility] [address] [place] [address] Creatinine [Mass/Vol] 2.35 mg/dL High 0.66-1.25 [facility] Comment on above: Performed By: #### L AB15, [id number] #### Mulcher Operator: TONI NAVA ([id number]) [facility] [address] [place] [address] [place] GLOMERULAR FILTRATION RATE ML/MIN/1.73 SQ M.PREDICTED 29.2 mL/min/1.73m*2 Low >60.0 [facility] Comment on above: Result Comment: Calc ulation based on the Chronic Kidney Disease Epidemiology Collaboration (CKD-EPI) equation refit without adjustment for race Performed By: #### L AB15, [id number] #### Mulcher Operator: TONI NAVA ([id number]) [facility] ([facility]) [address] [place] [address] Glucose [Mass/Vol] 48 mg/dL Critically low 70-100 [facility] Comment on above: Performed By: #### L [id number], [id number] #### Mulcher Operator: TONI NAVA ([phone]) [facility] [address] [place] [address] Potassium [Moles/Vol] 3.3 mmol/L Low 3.5-5.1 [facility] Comment on above: Performed By: #### L AB15, [id number] #### Mulcher Operator: TONI NAVA ([id number]) [facility] [address] [place] [address] Sodium [Moles/Vol] 140 mmol/L Normal 135-145 [facility] Comment on above: Performed By: #### L [id number], [id number] #### Mulcher Operator: TONI NAVA ([phone]) [facility] [address] [place] [address] Urea nitrogen [Mass/Vol] 51 mg/dL High 9-20 [facility] Comment on above: Performed By: #### L AB15, [id number] #### Mulcher Operator: TONI NAVA ([id number]) [facility] [address] [place] [address] Basic metabolic 1998 panelon 03-26-2023 Anion gap [Moles/Vol] 15 mmol/L High 3 - 13 mmol/L [facility] Calcium [Mass/Vol] 8.5 mg/dL 8.4 - 10. 4 mg/dL [facility] Chloride [Moles/Vol] 98 mmol/L 98 - 10 7 mmol/L [facility] CO2 [Moles/Vol] 21 mmol/L Low 22 - 30 mmol/L [facility] Creatinine [Mass/Vol] 2.52 mg/dL High 0.66 - 1.25 mg/dL [facility] GFR/1.73 sq M.predicted MDRD (S/P/Bld) [Vol rate/Area] 26.9 mL/min/{1.73_m2} Low - PINF [facility] Glucose [Mass/Vol] 244 mg/dL High 70 - 100 mg/dL [facility] Interpretation and review of laboratory results Abnormal [facility] Potassium [Moles/Vol] 4.3 mmol/L 3.5 - 5.1 mmol/L [facility] Sodium [Moles/Vol] 134 mmol/L Low 135 - 145 mmol/L [facility] Urea nitrogen [Mass/Vol] 63 mg/dL High 9 - 20 mg/d L [facility] Anion gap [Moles/Vol] 14 mmol/L High 3 - 13 mmol/L [facility] Calcium [Mass/Vol] 8.5 mg/dL 8.4 - 10. 4 mg/dL [facility] Chloride [Moles/Vol] 101 mmol/L 98 - 10 7 mmol/L [facility] CO2 [Moles/Vol] 22 mmol/L 22 - 30 mmol/L [facility] Creatinine [Mass/Vol] 2.57 mg/dL High 0.66 - 1.25 mg/dL [facility] GFR/1.73 sq M.predicted MDRD (S/P/Bld) [Vol rate/Area] 26.2 mL/min/{1.73_m2} Low - PINF [facility] Glucose [Mass/Vol] 119 mg/dL High 70 - 100 mg/dL [facility] Interpretation and review of laboratory results Abnormal [facility] Potassium [Moles/Vol] 3.9 mmol/L 3.5 - 5.1 mmol/L [facility] Sodium [Moles/Vol] 137 mmol/L 135 - 145 mmol/L [facility] Urea nitrogen [Mass/Vol] 59 mg/dL High 9 - 20 mg/d L [facility] Basic metabolic 1998 panelOr dered By: Analia Bautista on 03-26-2023 Anion gap [Moles/Vol] 12 mmol/L 3 - 13 mmol/L [facility] Calcium [Mass/Vol] 9.0 mg/dL 8.4 - 10. 4 mg/dL [facility] Chloride [Moles/Vol] 103 mmol/L 98 - 10 7 mmol/L [facility] CO2 [Moles/Vol] 25 mmol/L 22 - 30 mmol/L [facility] Creatinine [Mass/Vol] 2.35 mg/dL High 0.66 - 1.25 mg/dL [facility] GFR/1.73 sq M.predicted MDRD (S/P/Bld) [Vol rate/Area] 29.2 mL/min/{1.73_m2} Low - PINF [facility] Glucose [Mass/Vol] 48 mg/dL Critically low 70 - 10 0 mg/dL [facility] Interpretation and review of laboratory results Abnormal [facility] Potassium [Moles/Vol] 3.3 mmol/L Low 3.5 - 5.1 mmol/L [facility] Sodium [Moles/Vol] 140 mmol/L 135 - 145 mmol/L [facility] Urea nitrogen [Mass/Vol] 51 mg/dL High 9 - 20 mg/d L [facility] CBC (HEMOGRAM)on 03-26-2023 Erythrocyte distribution width (RBC) [Ratio] 14.5 % Normal 11.5-14.5 [facility] Comment on above: Performed By: #### L [id number] ####Mulcher Operator: TONI NAVA ([id number])[address] ERYTHROCYTE MEAN CORPUSCULAR HEMOGLOBIN CONCENTRATION (G/DL) BY AUTOMATED 33.1 % Normal 32.0-36.0 [facility] Comment on above: Performed By: #### L [id number] ####Mulcher Operator: TONI NAVA ([id number])[address] Hematocrit (Bld) [Volume fraction] 33.6 % Low 40.0-52.0 [facility] Comment on above: Performed By: #### L [id number] ####Mulcher Operator: TONI NAVA ([phone])[facility])[address] [place] [address] [place] Hemoglobin (Bld) [Mass/Vol] 11.1 g/dL Low 13.0-18.0 [facility] Comment on above: Performed By: #### L [id number] ####Mulcher Operator: TONI [id number])[facility] ([facility])[address] [place] [address] MCH (RBC) [Entitic mass] 28.1 pg Normal 26.0-34.0 [facility] Comment on above: Performed By: #### L [id number] ####Mulcher Operator: TONI NAVA ([id number])[facility] ([facility])[address] [place] [address] MCV (RBC) [Entitic vol] 85.0 fL Normal 80.0-98.0 [facility] Comment on above: Performed By: #### L [id number] ####Mulcher Operator: TONI NAVA ([id number])[facility] ([facility])[address] [place] [address] Platelet mean volume (Bld) [Entitic vol] 8.5 fL Normal 7.4-12.4 [facility] Comment on above: Performed By: #### L [id number] ####Mulcher Operator: TONI NAVA ([id number])[facility] ([facility])[address] [place] [address] PLATELETS (10*3/UL) IN BLOOD AUTOMATED COUNT 275 10*3/uL Normal 140-440 [facility] Comment on above: Performed By: #### L [id number] ####Mulcher Operator: TONI NAVA ([id number])[facility])[address] [place] [address] RBC (Bld) [#/Vol] 3.95 10*6/uL Low 4.40-5.90 [facility] Comment on above: Performed By: #### L [id number] ####Mulcher Operator: TONI NAVA ([phone])[facility] ([facility])[address] [place] [address] WBC (Bld) [#/Vol] 18.0 10*3/uL High 3.6-10.7 [facility] Comment on above: Performed By: #### L [id number] ####Mulcher Operator: TONI NAVA ([phone])[facility])[address] [place] [address] CBC W Auto Differential pane l (Bld)Ordered By: Isaiah Gutierrez on 03-26-2023 Erythrocyte distribution width (RBC) [Ratio] 14.6 % High 11.5 - 14.5 % [facility] Hematocrit (Bld) [Volume fraction] 33.1 % Low 40.0 - 52.0 % [facility] Hemoglobin (Bld) [Mass/Vol] 10.8 g/dL Low 13.0 - 18.0 g/dL [facility] Interpretation and review of laboratory results Abnormal [facility] MCH (RBC) [Entitic mass] 28.3 pg 26. 0 - 34.0 pg [facility] MCHC (RBC) [Mass/Vol] 32.7 % 32.0 - 36.0 % [facility] MCV (RBC) [Entitic vol] 86.5 fL 80.0 - 98.0 fL [facility] Nucleated RBC/100 WBC (Bld) [Ratio] 0.0 % [facility] Platelet mean volume (Bld) [Entitic vol] 8.5 fL 7.4 - 12.4 fL [facility] Platelets (Bld) [#/Vol] 229 10*3/uL 140 - 440 10*3/uL [facility] RBC (Bld) [#/Vol] 3.83 10*6/uL Low 4.40 - 5.9 0 10*6/uL [facility] WBC (Bld) [#/Vol] 14.8 10*3/uL High 3.6 - 10.7 10*3/uL [facility] CBC WITH AUTO DIFFERENTIALon 03-26-2023 Erythrocyte distribution width (RBC) [Ratio] 14.6 % High 11.5-14.5 [facility] Comment on above: Performed By: #### L [id number], [id number] ####Mulcher Operator: TONI NAVA ([id number])[facility] ([facility])[address] [place] [address] ERYTHROCYTE MEAN CORPUSCULAR HEMOGLOBIN CONCENTRATION (G/DL) BY AUTOMATED 32.7 % Normal 32.0-36.0 [facility] Comment on above: Performed By: #### L [id number], [id number] ####Mulcher Operator: TONI NAVA ([phone])[facility])[address] [place] [address] Hematocrit (Bld) [Volume fraction] 33.1 % Low 40.0-52.0 [facility] Comment on above: Performed By: #### L [id number], [id number] ####Mulcher Operator: TONI NAVA ([id number])[address] Hemoglobin (Bld) [Mass/Vol] 10.8 g/dL Low 13.0-18.0 [facility] Comment on above: Performed By: #### L [id number], [id number] ####Mulcher Operator: TONI NAVA ([id number])[address] MCH (RBC) [Entitic mass] 28.3 pg Normal 26.0-34.0 [facility] Comment on above: Performed By: #### L [id number], [id number] ####Mulcher Operator: TONI NAVA ([id number])[facility])[address] [place] [address] MCV (RBC) [Entitic vol] 86.5 fL Normal 80.0-98.0 [facility] Comment on above: Performed By: #### L [id number], [id number] ####Mulcher Operator: TONI NAVA ([id number])[address] NRBC (PER 100 WBCS) BY AUTOMATED COUNT 0.0 /100 WBCs Normal 0.0-2.0 [facility] Comment on above: Performed By: #### L [id number], [id number] ####Mulcher Operator: TONI NAVA ([id number])[address] Platelet mean volume (Bld) [Entitic vol] 8.5 fL Normal 7.4-12.4 [facility] Comment on above: Performed By: #### L [id number], [id number] ####Mulcher Operator: TONI NAVA ([id number])[facility] ([facility])[address] [place] [address] PLATELETS (10*3/UL) IN BLOOD AUTOMATED COUNT 229 10*3/uL Normal 140-440 [facility] Comment on above: Performed By: #### L [id number], [id number] ####Mulcher Operator: TONI NAVA ([id number])[facility] ([facility])[address] [place] [address] RBC (Bld) [#/Vol] 3.83 10*6/uL Low 4.40-5.90 [facility] Comment on above: Performed By: #### L [id number], [id number] ####Mulcher Operator: TONI NAVA ([id number])[facility] ([facility])[address] [place] [address] WBC (Bld) [#/Vol] 14.8 10*3/uL High 3.6-10.7 [facility] Comment on above: Performed By: #### L [id number], [id number] ####Mulcher Operator: TONI NAVA ([id number])[facility] ([facility])[address] [place] [address] CBC panel Auto (Bld)Ordered By: Keyur Ruggiero on 03-26-2023 Erythrocyte distribution width (RBC) [Ratio] 14.5 % 11.5 - 14.5 % [facility] Hematocrit (Bld) [Volume fraction] 33.6 % Low 40.0 - 52.0 % [facility] Hemoglobin (Bld) [Mass/Vol] 11.1 g/dL Low 13.0 - 18.0 g/dL [facility] Interpretation and review of laboratory results Abnormal [facility] MCH (RBC) [Entitic mass] 28.1 pg 26. 0 - 34.0 pg [facility] MCHC (RBC) [Mass/Vol] 33.1 % 32.0 - 36.0 % [facility] MCV (RBC) [Entitic vol] 85.0 fL 80.0 - 98.0 fL [facility] Platelet mean volume (Bld) [Entitic vol] 8.5 fL 7.4 - 12.4 fL [facility] Platelets (Bld) [#/Vol] 275 10*3/uL 140 - 440 10*3/uL [facility] RBC (Bld) [#/Vol] 3.95 10*6/uL Low 4.40 - 5.9 0 10*6/uL [facility] WBC (Bld) [#/Vol] 18.0 10*3/uL High 3.6 - 10.7 10*3/uL [facility] GLUCOSE, RANDOMon 03-26-2023 Glucose [Mass/Vol] 46 mg/dL Critically low 70-100 [facility] Comment on above: Performed By: #### L AB20, LAB82 ####Mulcher Operator: TONI NAVA ([id number])[facility])[address] [place] [address] Glucose (Bld) [Mass/Vol]on 1 Glucose [Mass/Vol] 46 mg/dL Critically low 70 - 10 0 mg/dL [facility] Interpretation and review of laboratory results Abnormal [facility] HEPATIC FUNCTION PANELon Albumin [Mass/Vol] 3.9 g/dL Normal 3.5-5.0 [facility] Comment on above: Performed By: #### L AB20, LAB82 ####Mulcher Operator: TONI NAVA ([id number])[facility] ([facility])[address] [place] [address] ALP [Catalytic activity/Vol] 79 U/L Normal 38-126 [facility] Comment on above: Performed By: #### L AB20, LAB82 ####Mulcher Operator: TONI NAVA ([id number])[facility] ([facility])[address] [place] [address] [place] ALT [Catalytic activity/Vol] 25 U/L Normal 0-49 [facility] Comment on above: Performed By: #### L AB20, LAB82 ####Mulcher Operator: TONI NAVA ([id number])[facility] ([facility])[address] [place] [address] [place] AST [Catalytic activity/Vol] 44 U/L Normal 15-46 [facility] Comment on above: Performed By: #### L AB20, LAB82 ####Mulcher Operator: TONI NAVA ([phone])[facility])[address] [place] [address] Bilirubin [Mass/Vol] 1.3 mg/dL Normal 0.2-1.3 [facility] Comment on above: Performed By: #### L AB20, LAB82 ####Mulcher Operator: TONI NAVA ([id number])[facility] ([facility])[address] [place] [address] Bilirubin.indirect [Mass/Vol] 0.0 mg/dL Normal 0.0-0.3 [facility] Comment on above: Performed By: #### L AB20, LAB82 ####Mulcher Operator: TONI NAVA ([phone])[facility] ([facility])[address] [place] [address] Protein [Mass/Vol] 6.9 g/dL Normal 6.3-8.2 [facility] Comment on above: Performed By: #### L AB20, LAB82 ####Mulcher Operator: TONI NAVA ([phone])[facility])[address] [place] [address] Hepatic function 2000 panelo n 03-26-2023 Albumin [Mass/Vol] 3.9 g/dL 3.5 - 5.0 g/dL [facility] ALP [Catalytic activity/Vol] 79 U/L 38 - 126 U/L [facility] ALT [Catalytic activity/Vol] 25 U/L 0 - 49 U/L [facility] AST [Catalytic activity/Vol] 44 U/L 15 - 46 U/L [facility] Bilirubin [Mass/Vol] 1.3 mg/dL 0.2 - 1 .3 mg/dL [facility] Bilirubin.conjugated [Mass/Vol] 0.0 mg/dL 0.0 - 0.3 mg/dL [facility] Interpretation and review of laboratory results Normal [facility] Protein [Mass/Vol] 6.9 g/dL 6.3 - 8.2 g/dL [facility] - Chemistry and C hemistry - challengeon 03-26-2023 Glucose [Mass/Vol] 266 mg/dL High 70 - 100 mg/dL [facility] Glucose [Mass/Vol] 185 mg/dL High 70 - 100 mg/dL [facility] Glucose [Mass/Vol] 120 mg/dL High 70 - 100 mg/dL [facility] Glucose [Mass/Vol] 114 mg/dL High 70 - 100 mg/dL [facility] Glucose [Mass/Vol] 144 mg/dL High 70 - 100 mg/dL [facility] Glucose [Mass/Vol] mg/dL Low 70 - 100 mg/dL [facility] Magnesium [Mass/Vol] 2.7 mg/dL High 1.6 - 2 .3 mg/dL [facility] MAGNESIUMon 03-26-2023 Magnesium [Mass/Vol] 2.7 mg/dL High 1.6-2.3 [facility] Comment on above: Performed By: #### L AB15, [id number] #### Mulcher Operator: TONI NAVA ([phone]) [facility]) [address] [place] [address] MANUAL DIFFERENTIALon 2022 BAND NEUTROPHILS (10*3/UL) BLOOD MANUAL COUNT 2.1 10*3/uL High <=0.0 [facility] Comment on above: Performed By: #### L [id number], [id number] ####Mulcher Operator: TONI NAVA ([id number])[facility] ([facility])[address] [place] [address] BAND NEUTROPHILS TOTAL PER COUNTED LEUKOCYTES BY MANUAL COUNT 14 Normal [facility] Comment on above: Performed By: #### L [id number], [id number] ####Mulcher Operator: TONI NAVA ([phone])[facility] ([facility])[address] [place] [address] CELLS COUNTED TOTAL (#) IN BLOOD 100 Normal [facility] Comment on above: Performed By: #### L [id number], [id number] ####Mulcher Operator: TONI NAVA ([id number])[facility] ([facility])[address] [place] [address] LEUKOCYTE MORPHOLOGY FINDING IN BLOOD Normal Normal [facility] Comment on above: Performed By: #### L [id number], [id number] ####Mulcher Operator: TONI NAVA ([phone])[facility] ([facility])[address] [place] [address] [place] LEUKOCYTES (10*3/UL) NUCLEATED ERYTHROCYTE ADJUST 14.8 10*3/uL High 3.6-10.7 [facility] Comment on above: Performed By: #### L [id number], [id number] ####Mulcher Operator: TONI NAVA ([id number])[facility] ([facility])[address] [place] [address] [place] LYMPHOCYTES (10*3/UL) IN BLOOD BY MANUAL COUNT 0.4 10*3/uL Low 1.0-4.3 [facility] Comment on above: Performed By: #### L [id number], [id number] ####Mulcher Operator: TONI NAVA ([phone])[facility] ([facility])[address] [place] [address] LYMPHOCYTES TOTAL PER COUNTED LEUKOCYTES BY MANUAL COUNT 3 Normal [facility] Comment on above: Performed By: #### L [id number], [id number] ####Mulcher Operator: TONI NAVA ([phone])[facility] ([facility])[address] [place] [address] [place] LYMPHOCYTES/100 LEUKOCYTES IN BLOOD BY MANUAL COUNT 3 % Low 20-40 [facility] Comment on above: Performed By: #### L [id number], [id number] ####Mulcher Operator: TONI NAVA ([id number])[facility] ([facility])[address] [place] [address] [place] MONOCYTES (10*3/UL) IN BLOOD BY MANUAL COUNT 0.7 10*3/uL Normal 0.0-0.8 [facility] Comment on above: Performed By: #### L [id number], [id number] ####Mulcher Operator: TONI NAVA ([phone])[facility] ([facility])[address] [place] [address] [place] MONOCYTES TOTAL PER COUNTED LEUKOCYTES BY MANUAL COUNT 5 Normal [facility] Comment on above: Performed By: #### L [id number], [id number] ####Mulcher Operator: TONI NAVA ([phone])[facility] [place] [address] [place] MONOCYTES/100 LEUKOCYTES IN BLOOD BY MANUAL COUNT 5 % Normal 2-10 [facility] Comment on above: Performed By: #### L [id number], [id number] ####Mulcher Operator: TONI NAVA ([phone])[facility] ([facility])[address] [place] [address] [place] NEUTROPHILS (SEGS+BANDS) (10*3/UL) BY MANUAL COUNT 13.6 10*3/uL High 1.8-7.0 [facility] Comment on above: Performed By: #### L [id number], [id number] ####Mulcher Operator: TONI NAVA ([phone])[facility] ([facility])[address] [place] [address] NEUTROPHILS BAND FORM/100 LEUKOCYTES IN BLOOD BY MANUAL COUNT 14 % High <=0 [facility] Comment on above: Performed By: #### L [id number], [id number] ####Mulcher Operator: TONI NAVA ([phone])[facility] ([facility])[address] [place] [address] [place] NEUTROPHILS TOTAL PER COUNTED LEUKOCYTES BY MANUAL COUNT 78 Normal [facility] Comment on above: Performed By: #### L [id number], [id number] ####Mulcher Operator: TONI NAVA ([phone])[facility] ([facility])[address] [place] [address] [place] PLATELET MORPHOLOGY IN BLOOD Normal Normal [facility] Comment on above: Performed By: #### L [id number], [id number] ####Mulcher Operator: TONI NAVA ([phone])[facility])[address] [place] [address] [place] RBC MORPHOLOGY IN BLOOD Normal Normal [facility] Comment on above: Performed By: #### L [id number], [id number] ####Mulcher Operator: TONI NAVA ([phone])[facility] ([facility])[address] [place] [address] [place] SEGEMENTED NEUTROPHILS/100 LEUKOCYTES BY MANUAL COUNT 78 % Normal 40-80 [facility] Comment on above: Performed By: #### L [id number], [id number] ####Mulcher Operator: TONI NAVA ([phone])[facility] ([facility])[address] [place] [address] SEGMENTED NEUTROPHILS (10*3/UL)IN BLOOD BY MANUAL COUNT 13.6 10*3/uL High 1.8-7.0 [facility] Comment on above: Performed By: #### L [id number], [id number] ####Mulcher Operator: TONI NAVA ([phone])[facility] [place] [address] Magnesium [Mass/Vol]on 03-26 Interpretation and review of laboratory results Abnormal [facility] Manual differential performe d Ql (Bld)on 03-26-2023 Band form neutrophils (Bld) [#/Vol] 2.1 10*3/uL High NINF - 0.0 10*3/uL [facility] Band form neutrophils/100 WBC (Bld) 14 % High NINF - 0 % [facility] Bands Manual 14 [facility] Cells Counted Total (Bld) [#] 100 {cells} [facility] Interpretation and review of laboratory results Abnormal [facility] Leukocyte morphology finding Nom (Bld) Normal [facility] Lymphocytes (Bld) [#/Vol] 0.4 10*3/uL Low 1. 0 - 4.3 10*3/uL [facility] Lymphocytes Manual 3 [facility] Lymphocytes/100 WBC (Bld) 3 % Low 20 - 40 % [facility] Monocytes (Bld) [#/Vol] 0.7 10*3/uL 0.0 - 0.8 10*3/uL [facility] Monocytes Manual 5 [facility] Monocytes/100 WBC (Bld) 5 % 2 - 10 % [facility] Neutrophils (Bld) [#/Vol] 13.6 10*3/uL High 1. 8 - 7.0 10*3/uL [facility] Neutrophils Manual 78 [facility] Platelet morphology finding Nom (Bld) Normal [facility] RBC morphology finding Nom (Bld) Normal [facility] Segmented neutrophils/100 WBC (Bld) 78 % 40 - 80 % [facility] WBC corrected for nucl RBC (Bld) [#/Vol] 14.8 10*3/uL High 3.6 - 10.7 10*3/uL [facility] No Panel Informationon 03-26 Interpretation and review of laboratory results Abnormal [facility] Interpretation and review of laboratory results Abnormal [facility] Interpretation and review of laboratory results Abnormal [facility] Interpretation and review of laboratory results Abnormal [facility] Interpretation and review of laboratory results Abnormal [facility] Interpretation and review of laboratory results Abnormal [facility] Progress Noteon 03-26-2023 Progress Note Occupational Therapy OCCUPATIONAL THERAPY [facility] Initial Evaluation Name/MRN: Shane Lipscomb ([id number]) Evaluation Date: 03/26/2023 Date of : 1955 Admission Date: 03/21/2023 5:38 AM Age: 67 y.o. Room/Bed: T1-126/T1-126 A Discharge Recommendation: Home with Home OT and Home with / Assist Equipment Needed: front wheeled walker and tub transfer bench Assessment IMPRESSION: Admitted s/p CABG x3 03/21, sternal precautions. Home with , indep with ADL at baseline and was not using device for mob. Pt up in chair, reporting incisional pain and neck pain, RN in room for meds. [employer] SBA fxl transfers from chair, requires cues for sternal precautions and hand placement during transitional movements. Currently max A for LB dressing and will benefit from AE training. Pt will need tub transfer bench for main level bathing. Most appropriate for home with family and home therapies. Performance Deficits /Impairments: Decreased Functional Mobility, Decreased ADL status, Decreased Strength, Decreased Safety Awareness, Decreased Endurance, Decreased Balance, and Decreased High Level IADLs Prognosis: Good Decision Making: Low Complexity Subjective Up in chair, agreeable. Pain: 0-10 pain scale: 7/10 Location: incision, neck Past Medical History: Past Medical History: Diagnosis Date Anemia Arthritis Coronary artery disease DM (diabetes mellitus) (HCC) History of transfusion HTN (hypertension) Hyperlipidemia RBBB Testicular cancer (HCC) Past Surgical History: Past Surgical History: Procedure Laterality Date ADENOIDECTOMY APPENDECTOMY COLONOSCOPY CORONARY STENT PLACEMENT 2004 LAP,INGUINAL HERNIA REPR,INITIAL (HISTORICAL) TONSILLECTOMY Admission Diagnosis: Patient Active Problem List Diagnosis Date Noted CAD in [place] artery 03/21/2023 HTN (hypertension) 03/11/2023 Coronary atherosclerosis 02/22/2023 Diabetic retinopathy (HCC) 02/22/2023 Elevated hemidiaphragm 02/22/2023 Obesity, Class III, BMI 40-49.9 (morbid obesity) ([facility]) 10/23/2017 Mixed hyperlipidemia 09/23/2007 Diverticulosis of colon (without mention of hemorrhage) 05/30/2007 Past heart attack 04/22/2005 Diabetes type 2, controlled ([facility]) 11/21/1991 Testicular cancer ([facility]) 02/20/1982 Medical Precautions: No active isolations Proper PPE donned/doffed in accordance with facility standards. Fall Risk: Alvarez Fall Risk Score: 60 (High Risk) Precautions/Restrict ions: Sternal Precautions: No Pushing, No Pulling, No Lifting Greater Than 10 lbs Family/Caregiver Present: spouse Overall Cognitive Status: WFL Overall Orientation Status: Oriented x4 Social/Functional History Patient admitted from home. Lives With: Spouse Type of Home: single family home Home Layout: Single Level Home Bathroom Shower/Tub: Tub/Shower Combo Toilet: Handicap Height Home Equipment: none Homemaking Responsibilities: Independent Receives Help From: None Active Regulation Supervisor: Yes Prior Level of Function ADL Assistance: Independent Ambulation Assistance: Independent Transfer Assistance: Independent Objective ADLs Toileting: Max Assist, will benefit from AE Upper Extremity Assessment AROM: Exceptions: WFL within restrictions PROM: Not assessed this session Strength: Exceptions: WFL within restrictions Tremors: no Coordination: WNL Tone: WNL Sensation: WNL Vision: not assessed this session Hearing: normal Hand dominance: N/A Bed Mobility Up in chair Transfers/Functional Mobility Sit to stand: SBA Stand to sit: SBA Standing balance: SBA Functional mobility: Contact Guard Device(s) used: rollator AM-PAC AM-PAC Inpatient Daily Activity Raw Score: 18 ADL Inpatient CMS G-Code Modifier: CK Plan Pt would benefit from skilled acute OT services to address Strengthening, Balance Training, Functional Mobility Training, Endurance Training, Gait Training, Pain Management, Safety Education and Training, Patient/Caregiver Training, and Self-Care/ADL Training. Frequency: 5-7x/week for 4 weeks Barriers: Pain and safety with sternal precautions Prognosis: excellent Safety/Education Safety Safety Devices in place: All fall risk precautions in place, call light within reach, left in chair, and nurse notified Restraints: No Education Education Given To: patient Education Provided: OT Role, Plan of Care, and Precautions Education Method: Verbal Barriers to Learning: None Education Outcome: Verbalized Understanding Goals Patient Stated Goal: Home Encounter Problems Encounter Problems (Active) Balance Patient will maintain dynamic standing balance for 5 minutes with modified independence in order to demonstrate decreased risk of falling. Start: 03/26/23 Expected End: 04/23/23 Dressings Lower Extremities Patient will dress lower body with AE mod indep Start: 03/26/23 Expected End: 04/23/23 Grooming Patient will complete grooming standing at sink in FWW m (more content not included)... Normal [facility] Progress Note Physical Therapy Facility/Department: [facility] Daily Treatment Note NAME: Shane Lipscomb : 1955 Date of Service: 03/26/2023 Discharge Recommendations: Home with Home health PT PT Equipment Recommendations Equipment Needed: No Other: own rollator Assessment Assessment: Pt min assist for transfer and CGA for gait. INCREASE time to complete all task. Delay's task, for example I need a cup filled with ice and some sprite in it before I can do that, this can be thrown away, I need more to drink before I walk and I need a pillow on each side of me and 1 for my head to start my exercises. brought rollator, not correct size for pt, pt declined larger size despite education. Ongoing cues for sternal precautions during transfers. Cues to increase ROM with P&C exercises. Wet, productive cough. Rec home upon discharge. Performance Deficits/Impairments : Decreased functional mobility , Decreased ADL status, Decreased strength, Decreased endurance, Decreased ROM, Decreased posture Patient Diagnosis(es): The primary encounter diagnosis was CAD in [place] artery. Diagnoses of Aneurysm of ascending aorta without rupture (HCC) and Coronary atherosclerosis due to calcified coronary lesion (CODE) were also pertinent to this visit. has a past medical history of Anemia, Arthritis, Coronary artery disease, DM (diabetes mellitus) (HCC), History of transfusion, HTN (hypertension), Hyperlipidemia, RBBB, and Testicular cancer (HCC). has a past surgical history that includes lap,inguinal hernia repr,initial (historical); Colonoscopy; Appendectomy; Coronary stent placement (2004); Tonsillectomy; and Adenoidectomy. Restrictions Restrictions/Precaut ions Restrictions/Precaut ions: General Precautions, Fall Risk Required Braces or Orthoses?: No Position Activity Restriction Sternal Precautions: No Pushing, No Pulling, 10# Lifting Restrictions Other position/activity restrictions: PIV, tele Subjective General Chart Reviewed: Yes Patient Assessed for Rehabilitation Services: Yes Response To Previous Treatment: Not applicable Family / Caregiver Present: Yes ( and daughter) Diagnosis: CAD, s/p CABG x3 03/21 Follows Commands: Within Functional Limits Subjective Subjective: Pt on toilet, just finished having a BM, agreeable to PT. RN cleared pt for therapy. No real c/o pain, just tired. Objective Bed mobility Comment: NT- pt ended in chair Transfers Sit to Stand: Minimal Assistance Stand to sit: Minimal Assistance Comment: x3 reps; toilet x 1 and chair x 2. Increase time, ongoing cues for sternal precautions. Delay's task for example one more drink before I do that. Ambulation Ambulation: Yes Ambulation 1 Surface 1: Level tile Device 1: Rollator Assistance 1: Contact guard Quality of Gait 1: slow michelle, uneven step length Quality of Gait Comment 1: decrease step length, flexed posture Distance (ft) 1: 15ft Comments 1: increase time, cues for posture awareness, requested seated rest break before ambulating further distance. Ambulation 2 Surface 2: Level tile Device 2: Rollator Assistance 2: Contact guard Quality of Gait 2: slow michelle, uneven step length Quality of Gait Comment 2: see above Distance (ft) 2: 200ft Comments 2: increase time, 2 standing rest break, fatigue and decrease endurance. Balance Comments: standing at sink for hand hygiene, flexed posture, CGA for balance. Exercises Upper Extremity: P&C ex #1-9 all x 10 reps each Plan Times per Week: 5-7x Plan Weeks: 2 wks Current Treatment Recommendations: Strengthening, Balance Training, Gait Training, Stair training, Functional Mobility Training, Transfer Training, ADL/Self-care Training, IADL Training, Endurance Training, Equipment Evaluation, Education, & procurement, Patient/Caregiver Education & Training, Safety Education & Training, Home Exercise Program Safety Safety Devices Safety Devices in Place: Yes Type of Devices: All fall risk precautions in place, Call light within reach, Gait belt, Nurse notified, No alarms engaged upon entry into room, Left in chair AM-PAC Score AM-PAC Inpatient Mobility Raw Score (No Stairs) : 15 Goals Encounter Problems Encounter Problems (Active) Cardiac Patient will perform bed mobility with independence in order to improve independence and prepare for out of bed mobility. (Not Addressed) Start: 03/22/23 Expected End: 04/05/23 Patient will complete sit to stand transfer with modified independence to LRD in order to improve safety and prepare for out of bed mobility. (Progressing) Start: 03/22/23 Expected End: 04/05/23 Patient will ambulate 600 feet or ambulate 5 minutes with modified independence with RPE of 14 or lower. (Progressing) Start: 03/22/23 Expected End: 04/05/23 Patient will ascend and descend 3 # stairs with modified independence rail for balance only. (Not Addressed) (more content not included)... Normal [facility] Progress Note Department of Internal Medicine Division of Endocrinology, Diabetes, & Metabolism Endocrinology Note Patient Name: Robert Lipscomb : 1955 AGE: 67 y.o. Room/Bed: T1-126/T1-126 A Admission Date: 03/21/2023 Visit Date: 03/26/2023 Reason for Endocrine Consult: post op heart Provider/Team Requesting Consult: cts PCP: TEMO RODRIGUEZ Outpt Gluing Crew Leader: No ASSESSMENT: Type 2 DM with with hyperglycemia with usp insulin use Recent hypoglycemia DEIDRE on CKD S/p CABG Obesity Body mass index is 44.3 kg/m?. PLAN: Hypoglycemia overnight; BG now improved Reduce Lantus 36 units every morning - gave new dose today Reduce Humalog 12 units before meals with medium dose correction before meals Discussed insulin regimen. ICU goal <180 GMF goal <150 POCT BG qAC and HS Hypoglycemia per protocol Carb controlled diet Confirmed pt taking Victoza at home. Can resume GLP-1 RA (Victoza) outpt. Consider switching to weekly GLP-1 RA outpt. Stop Prandin. Pt will start Humalog at home. In future pt will benefit from SGLT-2 Inhibitor and CGM. ANTICIPATED ENDOCRINE HOME GOING RECOMMENDATIONS: Optimized for Discharge from Endocrine standpoint: No Home Going Endocrine Rx Recommendations-- Tresiba and Humalog with doses TBD -- will need rx for Humalog and pen needles Resume Victoza 1.8 mg daily Stop Prandin Outpt Follow Up-- PCP SUBJECTIVE/HPI: CHIEF COMPLAINT: s/p CABG Type of DM: 2 Onset of DM: over 10 years per patient Home DM Medication Regimen: per chart lantus pens 70 am and 50 pm, victoza 1.8 mg daily; prandin 4 mg tid meals (not taking) DM control (last A1c/glucose data): Lab Results Component Value Date HGBA1C 7.9 (H) 03/11/2023 -pt had BG 40 overnight; was symptomatic -BG up to 120 this AM after tx -had diarrhea, now improved -appetite has been poor -no nausea, vomiting, or abd pain -states he takes Victoza at home; has not been taking Prandin as it has not been effective -Estimated Creatinine Clearance: 36.4 mL/min (A) (by C-G formula based on SCr of 2.57 mg/dL (H)). -spoke to RN Glucose Date/Time Value Ref Range Status 03/26/2023 08:05 AM 120 (H) 70 - 100 mg/dL Final 03/26/2023 05:00 AM 114 (H) 70 - 100 mg/dL Final 03/26/2023 02:08 AM 144 (H) 70 - 100 mg/dL Final 03/26/2023 01:37 AM <50 (L) 70 - 100 mg/dL Final Comment: Confirmation Drawn; 03/25/2023 08:31 PM 121 (H) 70 - 100 mg/dL Final 03/25/2023 06:31 PM 148 (H) 70 - 100 mg/dL Final Review of Systems ROS negative except for those mentioned in HPI. OBJECTIVE: Vitals: 03/26/23 0800 03/26/23 0826 03/26/23 0900 03/26/23 1000 BP: 115/52 BP Location: Patient Position: Pulse: 63 62 65 68 Resp: 18 Temp: 36.9 ?C (98.4 ?F) TempSrc: Oral SpO2: 98% 99% 99% 100% Weight: Height: PF: Physical Exam Vitals and nursing note reviewed. Constitutional: General: He is awake. He is not in acute distress. Appearance: He is obese. HENT: Head: Normocephalic. Cardiovascular: Rate and Rhythm: Normal rate and regular rhythm. Heart sounds: Normal heart sounds. Pulmonary: Effort: Pulmonary effort is normal. No respiratory distress. Breath sounds: Normal breath sounds. Abdominal: Palpations: Abdomen is soft. Tenderness: There is no abdominal tenderness. Skin: General: Skin is warm and dry. Comments: Intact chest incision Neurological: General: No focal deficit present. Mental Status: He is alert. Mental status is at baseline. Psychiatric: Mood and Affect: Mood normal. Behavior: Behavior is slowed. 24 hour intake/output: Intake/Output Summary (Last 24 hours) at 03/26/2023 1124 Last data filed at 03/25/2023 1145 Gross per 24 hour Intake -- Output 1500 ml Net -1500 ml Diet: Adult diet Regular; 5 carb choices (75 gm/meal) Medications (as per EMR): HomeMeds: Current Outpatient Medications Medication Instructions amLODIPine (Norvasc) 5 MG tablet Daily Apoaequorin (Prevagen) 10 MG capsule No dose, route, or frequency recorded. aspirin 324 mg, Oral, Daily atenolol (Tenormin) 50 MG tablet No dose, route, or frequency recorded. chlorhexidine (Peridex) 0.12 % solution 15 mL, Mouth/Throat, Use night before and morning of surgery enalapril (Vasotec) 20 MG tablet No dose, route, or frequency recorded. insulin glargine (Lantus SoloStar) 100 UNIT/ML pen SubCUTAneous, 70 units in the morning, 50 units in the evening liraglutide (Victoza) 18 MG/3ML injection No dose, route, or frequency recorded. mupirocin (Bactroban) 2 % ointment Apply liberal amount per nostril the night before surgery and then again the morning of surgery nitroglycerin (NITROSTAT) 0.4 mg, SubLINGual, Every 5 min PRN repaglinide (PRANDIN) 4 mg, 3 times daily before meals rosuvastatin (Crestor) 20 MG tablet Nightly Scheduled Meds:acetaminophen, 1,000 mg, Oral, q8h aspirin, 81 mg, Oral, Daily atenolol, 50 mg, Oral, Daily chlorhexidine, 15 mL, Mouth/Throat, (more content not included)... Normal [facility] Progress Note Attestation signed by Kuldeep Alvarado MD at 03/26/2023 12:43 PM I have personally performed a face to face diagnostic evaluation on this patient today on 03/26/23. Labs, imaging studies, and electronic medical record notes on In Flow have been reviewed by me. This note documented and discussed by the []sergeant of officers []Fellow [] MARIANO reflects my history, exam and medical decision making. I have reviewed and agree with the care plan. Changes were made in the orders as necessary. ROS documentation was reviewed and negative unless otherwise stated in the HPI. My history, exam, assessment and plan are as follows: Time spent for coordination of care: a subsequent visit: 35 minutes (Level II) Awake, in bed, multiple bowel mvmts overnight, hypoglycemia as well No fevers, no cough, no rhinorrhea Abd sore left lateral Severe CAD 03/21 s/p CABG x 3 Expected anemia post op HTN, HLD DEIDRE Cr 2.57, baseline Cr 1.37 CKD3 DM2 with hypoglycemia--Endo adjusting insulin dosing Obesity class III LR bolus, monitor creatinine and UOP, hold diuresis Check CXR Cardiothoracic Surgery/CCM Progress Note PATIENT NAME: Robert Lipscomb DATE: 03/26/23 HPI: Mr. Robert Lipscomb is a 67 year old male patient with a PMHx that includes CAD s/p SUZETTE tp RCA (2004), RBBB, HTN, HLD, anemia and diabetes (A1c 7.9). He was referred to CT Surgery by Dr. Armendariz. Patient had underwent coronary cath and was found to have severe multivessel CAD. He was seen in the OP setting by Dr. Childress. He consented and was scheduled for CABG on 03/21/23. Surgery/Procedure: 03/21/23: Dr. Childress- CABGx3 (PIERSON-LAD, SVG-OM, SVG-RPDA), LEVH Interval History: 03/26/23, POD# 05: Afebrile, NSR on tele, BP stable, on 2L O2. Hypoglycemia event overnight. Creatinine increased. Multiple loose BM's overnight. Patient lying in bed, awake and alert. Had a rough night. Per nursing, patient weak, not ambulating well using walker. Review of Systems Constitutional: Positive for fatigue. Negative for chills, diaphoresis and fever. Respiratory: Negative for cough, shortness of breath and wheezing. Cardiovascular: Positive for leg swelling. Negative for chest pain and palpitations. Gastrointestinal: Negative for abdominal distention and abdominal pain. Neurological: Negative for dizziness, syncope and light-headedness. Objective: Vitals: BP: (!) 118/103, MAP (mmHg): 110, BP Method: Automatic Heart Rate: 75 Resp: 18 Temp: 37.2 ?C (99 ?F), Temp Source: Axillary BMI (Calculated): 42.64 Chest xray pending. BMP: Recent Labs 03/24/2312103/25/2332103/26/23 0030 NA 137 138 140 K 4.2 3.7 3.3* CL 104 102 103 CO2 24 27 25 BUN 38* 41* 51* CREATININE 1.78* 1.75* 2.35* CALCIUM 8.1* 8.5 9.0 MG 2.0 1.9 2.7* CBC: Recent Labs 03/24/2312103/25/2332103/26/23 0030 WBC 11.3* 9.3 18.0* HGB 10.1* 10.4* 11.1* HCT 30.8* 30.8* 33.6* PLT 139* 179 275 MCV 87.6 85.1 85.0 RDW 14.3 14.5 14.5 INR: No results for input(s): INR in the last 72 hours. Physical Exam Vitals reviewed. Constitutional: General: He is not in acute distress. Appearance: He is not ill-appearing or diaphoretic. Cardiovascular: Rate and Rhythm: Normal rate and regular rhythm. Pulses: Normal pulses. Heart sounds: No murmur heard. Pulmonary: Effort: Pulmonary effort is normal. Breath sounds: No wheezing, rhonchi or rales. Abdominal: General: There is no distension. Palpations: Abdomen is soft. Tenderness: There is no abdominal tenderness. Musculoskeletal: Right lower leg: Edema present. Left lower leg: Edema present. Skin: General: Skin is warm and dry. Capillary Refill: Capillary refill takes less than 2 seconds. Findings: Bruising present. Comments: MSI well approximated. No redness, warmth or drainage noted. Neurological: General: No focal deficit present. Mental Status: He is alert and oriented to person, place, and time. Psychiatric: Mood and Affect: Mood normal. Behavior: Behavior normal. Thought Content: Thought content normal. Judgment: Judgment normal. Assessment: CAD s/p CABGx3 HTN HLD DM (A1c 7.9) RBBB Post operative Pulm Management: Normal Post-operative Course Post-operative Atrial Fibrillation: []Yes [x] No Acute blood loss anemia/consumptive thrombocytopenia Plan: Patient Status: Telemetry Creatinine bumped up today. -1.78->1.75->2.35. DC lasix. Give 1L LR throughout day. Re-check BMP this AM, CBC this AM. WBC 18 this AM. Continue to monitor. -No fevers, chills or cough noted. Chest xray pending. Continue aspirin, statin and BB. DC bowel regimen. Encourage PO intake. Endocrinology following for blood glucose managem (more content not included)... Normal [facility] XR ABDOMEN 1 VIEWon 03-26-20 23 XR ABDOMEN 1 VIEW Patient Name: ROBERT LIPSCOMB : 1955 Exam Date/Time: 03/26/2023 09:27 Procedure: XR ABDOMEN 1 VIEW Ordering Provider: LESKOSKY, , NYA Reason For Exam: ABDOMINAL PAIN SUPINE ABDOMEN (KUB) CLINICAL INDICATION: Abdominal pain A supine plain film of the abdomen was obtained. COMPARISON: None FINDINGS: The bowel demonstrates a nonspecific, nonobstructive gas pattern. Free air under the diaphragm cannot be adequately assessed on this single, supine view. Upright or decubitus films may be obtained if clinically warranted. No pathologic calcifications are identified. Scattered surgical clips are noted throughout the abdomen. Visualized bony structures are grossly unremarkable. IMPRESSION: Nonobstructive bowel gas pattern. Report Dictated on Electronically Signed By: Toney Lewis MD Electronically Signed Date/Time: 03/26/2023 9:07 AM EDT Normal [facility] XR Abdomen Single viewon [facility] Radiology Study observation (narrative) [facility] XR Abdomen Single viewOrdere d By: Toney Lewis on 03-26-2023 [facility] Work Phone: XR CHEST 1 VIEWon 03-26-2023 XR CHEST 1 VIEW Patient Name: ROBERT LIPSCOMB : 1955 Exam Date/Time: 03/26/2023 09:28 Procedure: XR CHEST 1 VIEW Ordering Provider: JACINTO KYLE Reason For Exam: DYSPNEA INDICATION: Shortness of breath. VIEWS: Chest portable-1 image COMPARISON: 03/25/2023 FINDINGS: Interval removal of right IJ vascular sheath. Median sternotomy wires and fixation hardware present. Cardiac monitoring wires and leads are present. The trachea is midline. The cardiomediastinal silhouette is mildly enlarged. The right hemidiaphragm is elevated. Left lung base opacities are present with splint the costophrenic angle and silhouettes the hemidiaphragm, similar to prior exam. IMPRESSION: 1. No significant one-day change. 2. Left lung base opacities representing atelectasis and/or small pleural effusion. Report Dictated on Electronically Signed By: Elina Green MD Electronically Signed Date/Time: 03/26/2023 9:07 AM EDT Normal [facility] XR Chest Single viewon 03-26 [facility] Radiology Study observation (narrative) [facility] XR Chest Single viewOrdered By: Elina Green on 03-26-2023 [facility] Work Phone: BASIC METABOLIC PANELon 10-0 Anion gap [Moles/Vol] 9 mmol/L Normal 3-13 [facility] Comment on above: Performed By: #### L AB15, [id number] #### Mulcher Operator: TONI NAVA ([id number]) [facility]) [address] [place] [address] Calcium [Mass/Vol] 8.5 mg/dL Normal 8.4-10.4 [facility] Comment on above: Performed By: #### L AB15, [id number] #### Mulcher Operator: TONI NAVA ([id number]) [facility] ([facility]) [address] [place] [address] Chloride [Moles/Vol] 102 mmol/L Normal 98-107 [facility] Comment on above: Performed By: #### L AB15, [id number] #### Mulcher Operator: TONI NAVA ([id number]) [facility] ([facility]) [address] [place] [address] [place] CO2 [Moles/Vol] 27 mmol/L Normal 22-30 [facility] Comment on above: Performed By: #### L AB15, [id number] #### Mulcher Operator: TONI NAVA ([id number]) [facility] ([facility]) [address] [place] [address] Creatinine [Mass/Vol] 1.75 mg/dL High 0.66-1.25 [facility] Comment on above: Performed By: #### L AB15, [id number] #### Mulcher Operator: TONI NAVA ([id number]) [facility]) [address] [place] [address] GLOMERULAR FILTRATION RATE ML/MIN/1.73 SQ M.PREDICTED 41.6 mL/min/1.73m*2 Low >60.0 [facility] Comment on above: Result Comment: Calc ulation based on the Chronic Kidney Disease Epidemiology Collaboration (CKD-EPI) equation refit without adjustment for race Performed By: #### L AB15, [id number] #### Mulcher Operator: TONI NAVA ([id number]) [facility]) [address] [place] [address] Glucose [Mass/Vol] 161 mg/dL High 70-100 [facility] Comment on above: Performed By: #### L AB15, [id number] #### Mulcher Operator: TONI NAVA ([id number]) [facility]) [address] [place] [address] Potassium [Moles/Vol] 3.7 mmol/L Normal 3.5-5.1 [facility] Comment on above: Performed By: #### L AB15, [id number] #### Mulcher Operator: TONI NAVA ([id number]) [facility]) [address] [place] [address] Sodium [Moles/Vol] 138 mmol/L Normal 135-145 [facility] Comment on above: Performed By: #### L AB15, [id number] #### Mulcher Operator: TONI NAVA ([id number]) [facility]) [address] [place] [address] Urea nitrogen [Mass/Vol] 41 mg/dL High 9-20 [facility] Comment on above: Performed By: #### L AB15, [id number] #### Mulcher Operator: TONI NAVA ([id number]) [facility]) [address] [place] [address] Basic metabolic 1998 panelon 03-25-2023 Anion gap [Moles/Vol] 9 mmol/L 3 - 13 mmol/L [facility] Calcium [Mass/Vol] 8.5 mg/dL 8.4 - 10. 4 mg/dL [facility] Chloride [Moles/Vol] 102 mmol/L 98 - 10 7 mmol/L [facility] CO2 [Moles/Vol] 27 mmol/L 22 - 30 mmol/L [facility] Creatinine [Mass/Vol] 1.75 mg/dL High 0.66 - 1.25 mg/dL [facility] GFR/1.73 sq M.predicted MDRD (S/P/Bld) [Vol rate/Area] 41.6 mL/min/{1.73_m2} Low - PINF [facility] Glucose [Mass/Vol] 161 mg/dL High 70 - 100 mg/dL [facility] Interpretation and review of laboratory results Abnormal [facility] Potassium [Moles/Vol] 3.7 mmol/L 3.5 - 5.1 mmol/L [facility] Sodium [Moles/Vol] 138 mmol/L 135 - 145 mmol/L [facility] Urea nitrogen [Mass/Vol] 41 mg/dL High 9 - 20 mg/d L [facility] CBC (HEMOGRAM)on 03-25-2023 Erythrocyte distribution width (RBC) [Ratio] 14.5 % Normal 11.5-14.5 [facility] Comment on above: Performed By: #### L AB15, [id number] #### Mulcher Operator: TONI NAVA ([id number]) [facility]) [address] [place] [address] ERYTHROCYTE MEAN CORPUSCULAR HEMOGLOBIN CONCENTRATION (G/DL) BY AUTOMATED 33.9 % Normal 32.0-36.0 [facility] Comment on above: Performed By: #### L AB15, [id number] #### Mulcher Operator: TONI NAVA ([id number]) [facility]) [address] [place] [address] Hematocrit (Bld) [Volume fraction] 30.8 % Low 40.0-52.0 [facility] Comment on above: Performed By: #### L AB15, [id number] #### Mulcher Operator: TONI NAVA ([id number]) [facility]) [address] [place] [address] Hemoglobin (Bld) [Mass/Vol] 10.4 g/dL Low 13.0-18.0 [facility] Comment on above: Performed By: #### L [id number], [id number] #### Mulcher Operator: TONI NAVA ([id number]) [facility]) [address] [place] [address] MCH (RBC) [Entitic mass] 28.8 pg Normal 26.0-34.0 [facility] Comment on above: Performed By: #### L AB15, [id number] #### Mulcher Operator: TONI NAVA ([id number]) [facility] ([facility]) [address] [place] [address] MCV (RBC) [Entitic vol] 85.1 fL Normal 80.0-98.0 [facility] Comment on above: Performed By: #### L AB15, [id number] #### Mulcher Operator: TONI NAVA ([id number]) [facility] ([facility]) [address] [place] [address] Platelet mean volume (Bld) [Entitic vol] 8.4 fL Normal 7.4-12.4 [facility] Comment on above: Performed By: #### L AB15, [id number] #### Mulcher Operator: TONI NAVA ([id number]) [facility] ([facility]) [address] [place] [address] PLATELETS (10*3/UL) IN BLOOD AUTOMATED COUNT 179 10*3/uL Normal 140-440 [facility] Comment on above: Performed By: #### L AB15, [id number] #### Mulcher Operator: TONI NAVA ([id number]) [facility] ([facility]) [address] [place] [address] RBC (Bld) [#/Vol] 3.62 10*6/uL Low 4.40-5.90 [facility] Comment on above: Performed By: #### L AB15, [id number] #### Mulcher Operator: TONI NAVA ([id number]) [facility] ([facility]) [address] [place] [address] WBC (Bld) [#/Vol] 9.3 10*3/uL Normal 3.6-10.7 [facility] Comment on above: Performed By: #### L AB15, [id number] #### Mulcher Operator: TONI NAVA ([id number]) [facility] ([facility]) [address] [place] [address] CBC panel Auto (Bld)Ordered By: Megan Keyes on 03-25-2023 Erythrocyte distribution width (RBC) [Ratio] 14.5 % 11.5 - 14.5 % [facility] Hematocrit (Bld) [Volume fraction] 30.8 % Low 40.0 - 52.0 % [facility] Hemoglobin (Bld) [Mass/Vol] 10.4 g/dL Low 13.0 - 18.0 g/dL [facility] Interpretation and review of laboratory results Abnormal [facility] MCH (RBC) [Entitic mass] 28.8 pg 26. 0 - 34.0 pg [facility] MCHC (RBC) [Mass/Vol] 33.9 % 32.0 - 36.0 % [facility] MCV (RBC) [Entitic vol] 85.1 fL 80.0 - 98.0 fL [facility] Platelet mean volume (Bld) [Entitic vol] 8.4 fL 7.4 - 12.4 fL [facility] Platelets (Bld) [#/Vol] 179 10*3/uL 140 - 440 10*3/uL [facility] RBC (Bld) [#/Vol] 3.62 10*6/uL Low 4.40 - 5.9 0 10*6/uL [facility] WBC (Bld) [#/Vol] 9.3 10*3/uL 3.6 - 10.7 10*3/uL [facility] - Chemistry and C hemistry - challengeon 03-25-2023 Glucose [Mass/Vol] 121 mg/dL High 70 - 100 mg/dL [facility] Glucose [Mass/Vol] 148 mg/dL High 70 - 100 mg/dL [facility] Glucose [Mass/Vol] 220 mg/dL High 70 - 100 mg/dL [facility] Glucose [Mass/Vol] 250 mg/dL High 70 - 100 mg/dL [facility] Magnesium [Mass/Vol] 1.9 mg/dL 1.6 - 2 .3 mg/dL [facility] MAGNESIUMon 03-25-2023 Magnesium [Mass/Vol] 1.9 mg/dL Normal 1.6-2.3 [facility] Comment on above: Performed By: #### L AB15, [id number] #### Mulcher Operator: TONI NAVA ([id number]) [facility] ([facility]) [address] [id number] [facility] Magnesium [Mass/Vol]on 03-25 Interpretation and review of laboratory results Normal [facility] No Panel Informationon 03-25 Interpretation and review of laboratory results Abnormal [facility] Interpretation and review of laboratory results Abnormal [facility] Interpretation and review of laboratory results Abnormal [facility] Interpretation and review of laboratory results Abnormal [facility] Progress Noteon 03-25-2023 Progress Note Physical Therapy Facility/Department: [facility] Physical Therapy Daily Treatment Note NAME: Shane Lipscomb : 1955 Date of Service: 03/25/2023 Discharge Recommendations: Home with Home health PT PT Equipment Recommendations Equipment Needed: No Other: own rollator Assessment Assessment: Pt progressing towards goals. Increase time to complete task. Issued P&C handout with review. Cues for sternal precautions. Rec home with assist upon discharge. Performance Deficits/Impairments : Decreased functional mobility , Decreased ADL status, Decreased strength, Decreased endurance, Decreased ROM Patient Diagnosis(es): The primary encounter diagnosis was CAD in [place] artery. Diagnoses of Aneurysm of ascending aorta without rupture (HCC) and Coronary atherosclerosis due to calcified coronary lesion (CODE) were also pertinent to this visit. has a past medical history of Anemia, Arthritis, Coronary artery disease, DM (diabetes mellitus) (HCC), History of transfusion, HTN (hypertension), Hyperlipidemia, RBBB, and Testicular cancer (HCC). has a past surgical history that includes lap,inguinal hernia repr,initial (historical); Colonoscopy; Appendectomy; Coronary stent placement (2004); Tonsillectomy; and Adenoidectomy. Restrictions Restrictions/Precaut ions Restrictions/Precaut ions: General Precautions, Fall Risk Required Braces or Orthoses?: No Position Activity Restriction Sternal Precautions: No Pushing, No Pulling, 10# Lifting Restrictions Other position/activity restrictions: PIV, tele Subjective General Chart Reviewed: Yes Patient Assessed for Rehabilitation Services: Yes Response To Previous Treatment: Not applicable Family / Caregiver Present: Yes (daughter) Diagnosis: CAD, s/p CABG x3 03/21 Follows Commands: Within Functional Limits Subjective Subjective: Pt reclined in chair, agreeable to PT. Pain Assessment Pain Assessment: No/denies pain Objective Bed mobility Comment: NT- pt in chair Transfers Sit to Stand: Minimal Assistance Stand to sit: Minimal Assistance Comment: x 2 reps; chair and toilet Ambulation Ambulation: Yes Ambulation 1 Surface 1: Level tile Device 1: (rollator) Assistance 1: Standby assistance Quality of Gait 1: slow michelle Quality of Gait Comment 1: decrease step length, flexed posture Distance (ft) 1: 300ft Comments 1: mild SOBOE, Ambulation 2 Surface 2: Level tile Device 2: (rollator) Assistance 2: Standby assistance Quality of Gait 2: slow michelle, uneven step length Quality of Gait Comment 2: see above Distance (ft) 2: 25 ft Comments 2: no LOB, flexed posture Balance Comments: standing with rollator, flexed posture, CGA/SBA for balance; dynamic standing with functional reaching, no LOB, SBA. Exercises Upper Extremity: P&C ex #1-9 all x 10 reps each Comments: issued P&C handout with review. Plan Times per Week: 5-7x Plan Weeks: 2 wks Current Treatment Recommendations: Strengthening, Balance Training, Gait Training, Stair training, Functional Mobility Training, Transfer Training, ADL/Self-care Training, IADL Training, Endurance Training, Equipment Evaluation, Education, & procurement, Patient/Caregiver Education & Training, Safety Education & Training, Home Exercise Program Safety Safety Devices Safety Devices in Place: Yes Type of Devices: All fall risk precautions in place, Call light within reach, Gait belt, Nurse notified, No alarms engaged upon entry into room, Left in chair AM-PAC Score AM-PAC Inpatient Mobility Raw Score (No Stairs) : 15 Goals Encounter Problems Encounter Problems (Active) Cardiac Patient will perform bed mobility with independence in order to improve independence and prepare for out of bed mobility. (Not Addressed) Start: 03/22/23 Expected End: 04/05/23 Patient will complete sit to stand transfer with modified independence to LRD in order to improve safety and prepare for out of bed mobility. (Progressing) Start: 03/22/23 Expected End: 04/05/23 Patient will ambulate 600 feet or ambulate 5 minutes with modified independence with RPE of 14 or lower. (Progressing) Start: 03/22/23 Expected End: 04/05/23 Patient will ascend and descend 3 # stairs with modified independence rail for balance only. (Not Addressed) Start: 03/22/23 Expected End: 04/05/23 Patient will be independent with P&C exercises. (Progressing) Start: 03/22/23 Expected End: 04/05/23 Patient will be independent with managing secretions and home walking program. (Progressing) Start: 03/22/23 Expected End: 04/05/23 Education Education Given To: Family, Patient Education Provided: Goals, General Safety, Gait Training, Plan of Care, Discharge recommendations, Home Exercise Program, Transfer Training Education Provided Comments: P&C therex, IS use, mobility needs, sternal precautions Education Method: Verbal Barriers to Learning: None Education Outcome: Verbalized un (more content not included)... [facility] Progress Note Department of Internal Medicine Division of Endocrinology, Diabetes, & Metabolism Endocrinology Note Patient Name: Robert Lipscomb : 1955 AGE: 67 y.o. Room[facility]: [facility] A Admission Date: 03/21/2023 Visit Date: 03/25/2023 Reason for Endocrine Consult: post op heart Provider/Team Requesting Consult: cts PCP: TEMO RODRIGUEZ Outpt Gluing Crew Leader: No ASSESSMENT: Type 2 DM with with hyperglycemia with usp insulin use S/p CABG Obesity Body mass index is 44.3 kg/m?. PLAN: BG above target but patient did not receive all his insulin doses yesterday because he had decreased appetite He feels better today Continue Lantus 66 units every morning Continue Humalog 24 units before meals with medium dose correction before meals In future pt will benefit from SGLT-2 Inhibitor and CGM. Not clear if he is taking victoza. In future will benefit from ozempic ICU goal <180 GMF goal <150 POCT BG q1 Hypoglycemia per protocol Carb controlled diet ANTICIPATED ENDOCRINE HOME GOING RECOMMENDATIONS: Optimized for Discharge from Endocrine standpoint: No Home Going Endocrine Rx Recommendations-- Most likely basal bolus insulin in pens with insulin pen needels. No prandin Outpt Follow Up-- pcp SUBJECTIVE/HPI: CHIEF COMPLAINT: s/p CABG Denies nausea, vomiting, or abd pain Had poor appetite yesterday for dinner so he received Humalog 8 units only instead of 24 units Feels appetite is better today Tolerating diet BG still above target Cr 1.75 GFR 41.6 Type of DM: 2 Onset of DM: over 10 years per patient Home DM Medication Regimen: per chart lantus pens 70 am and 50 pm, victoza 1.8 mg daily ? , prandin 4 mg tid meals po DM control (last A1c/glucose data): Lab Results Component Value Date HGBA1C 7.9 (H) 03/11/2023 Glucose Date/Time Value Ref Range Status 03/25/2023 08:23 AM 250 (H) 70 - 100 mg/dL Final 03/24/2023 05:49 PM 171 (H) 70 - 100 mg/dL Final 03/24/2023 11:39 AM 250 (H) 70 - 100 mg/dL Final 03/24/2023 08:51 AM 188 (H) 70 - 100 mg/dL Final 03/23/2023 05:46 PM 239 (H) 70 - 100 mg/dL Final 03/23/2023 11:52 AM 229 (H) 70 - 100 mg/dL Final Review of Systems ROS negative except for those mentioned in HPI. OBJECTIVE: Vitals: 03/25/23 0500 03/25/23 0600 03/25/23 0700 03/25/23 0800 BP: (!) 141/44 BP Location: Right arm Patient Position: Sitting Pulse: 86 81 84 77 Resp: 18 Temp: 36.7 ?C (98 ?F) TempSrc: Temporal SpO2: 98% Weight: Height: PF: Physical Exam Vitals and nursing note reviewed. Constitutional: General: He is awake. He is not in acute distress. Appearance: He is ill-appearing. He is not diaphoretic. HENT: Head: Normocephalic. Mouth/Throat: Mouth: Mucous membranes are moist. Cardiovascular: Rate and Rhythm: Normal rate. Pulmonary: Effort: Pulmonary effort is normal. Abdominal: Palpations: Abdomen is soft. Tenderness: There is no abdominal tenderness. Skin: General: Skin is warm and dry. Comments: Intact incision Neurological: Mental Status: He is alert and oriented to person, place, and time. Mental status is at baseline. Psychiatric: Behavior: Behavior is slowed. 24 hour intake/output: Intake/Output Summary (Last 24 hours) at 03/25/2023 1234 Last data filed at 03/25/2023 1145 Gross per 24 hour Intake 500 ml Output 4750 ml Net -4250 ml Diet: Adult diet Regular; 5 carb choices (75 gm/meal) Medications (as per EMR): HomeMeds: Current Outpatient Medications Medication Instructions amLODIPine (Norvasc) 5 MG tablet Daily Apoaequorin (Prevagen) 10 MG capsule No dose, route, or frequency recorded. aspirin 324 mg, Oral, Daily atenolol (Tenormin) 50 MG tablet No dose, route, or frequency recorded. chlorhexidine (Peridex) 0.12 % solution 15 mL, Mouth/Throat, Use night before and morning of surgery enalapril (Vasotec) 20 MG tablet No dose, route, or frequency recorded. insulin glargine (Lantus SoloStar) 100 UNIT/ML pen SubCUTAneous, 70 units in the morning, 50 units in the evening liraglutide (Victoza) 18 MG/3ML injection No dose, route, or frequency recorded. mupirocin (Bactroban) 2 % ointment Apply liberal amount per nostril the night before surgery and then again the morning of surgery nitroglycerin (NITROSTAT) 0.4 mg, SubLINGual, Every 5 min PRN repaglinide (PRANDIN) 4 mg, 3 times daily before meals rosuvastatin (Crestor) 20 MG tablet Nightly Scheduled Meds:acetaminophen, 1,000 mg, Oral, q8h aspirin, 81 mg, Oral, Daily atenolol, 50 mg, Oral, Daily chlorhexidine, 15 mL, Mouth/Throat, BID furosemide, 40 mg, IntraVENous, BID heparin, 5,000 Units, SubCUTAneous, BID insulin glargine, 66 Units, SubCUTAneous, q AM insulin lispro, 0-12 Units, SubCUTAneous, TID WC Insulin Lispro, 24 Units, SubCUTAneous, TID WC Lidocaine, 1 patch, Topical, Daily magnesium hydroxide, 30 mL, Oral, Daily pantoprazole, 40 mg, Oral, qAM AC polyethylene glycol (PEG) (more content not included)... Normal [facility] Progress Note Attestation signed by Kuldeep Alvarado MD at 03/25/2023 3:37 PM (Updated) I have personally performed a face to face diagnostic evaluation on this patient today on 03/25/23. Labs, imaging studies, and electronic medical record notes on In Flow have been reviewed by me. This note documented and discussed by the []sergeant of officers []Fellow [x] MARIANO reflects my history, exam and medical decision making. I have reviewed and agree with the care plan. Changes were made in the orders as necessary. ROS documentation was reviewed and negative unless otherwise stated in the HPI. My history, exam, assessment and plan are as follows: Time spent for coordination of care: a subsequent visit: 25 minutes (Level I) Awake, alert, in chair, resp unlabored Severe CAD 03/21 s/p CABG x 3 Expected anemia post op HTN, HLD Cr 1.75, baseline Cr 1.37 CKD3 DM2 with hyperglycemia Obesity class III Removing central line and meyer today On bid lasix Cardiothoracic Surgery/CCM Progress Note PATIENT NAME: Robert Lipscomb DATE: 03/25/23 HPI: Mr. Robert Lipscomb is a 67 year old male patient with a PMHx that includes CAD s/p SUZETTE tp RCA (2004), RBBB, HTN, HLD, anemia and diabetes (A1c 7.9). He was referred to CT Surgery by Dr. Armendariz. Patient had underwent coronary cath and was found to have severe multivessel CAD. He was seen in the OP setting by Dr. Childress. He consented and was scheduled for CABG on 03/21/23. Surgery/Procedure: 03/21/23: Dr. Childress- CABGx3 (PIERSON-LAD, SVG-OM, SVG-RPDA), LEVH Interval History: 03/25/23, POD# 04: Afebrile, NSR on tele, BP stable but slightly elevated, on RA. Patient sitting up in chair, no major complaints. Pain tolerable. Review of Systems Constitutional: Positive for fatigue. Negative for chills, diaphoresis and fever. Respiratory: Negative for cough, shortness of breath and wheezing. Cardiovascular: Positive for leg swelling. Negative for chest pain and palpitations. Gastrointestinal: Negative for abdominal distention and abdominal pain. Neurological: Negative for dizziness, syncope and light-headedness. Objective: Vitals: BP: (!) 150/60, MAP (mmHg): 82, BP Method: Automatic Heart Rate: 81 Resp: 20 Temp: 36.4 ?C (97.5 ?F), Temp Source: Temporal BMI (Calculated): 43.15 BMP: Recent Labs 03/23/23 0004 03/24/23 0122 03/25/23 0322 NA 137 137 138 K 4.2 4.2 3.7 CL 109* 104 102 CO2 19* 24 27 BUN 25* 38* 41* CREATININE 1.40* 1.78* 1.75* CALCIUM 7.9* 8.1* 8.5 MG 2.2 2.0 1.9 CBC: Recent Labs 03/23/23 0004 03/24/23 0122 03/25/23 0322 WBC 12.6* 11.3* 9.3 HGB 9.8* 10.1* 10.4* HCT 30.3* 30.8* 30.8* PLT 125* 139* 179 MCV 87.1 87.6 85.1 RDW 14.4 14.3 14.5 INR: No results for input(s): INR in the last 72 hours. Physical Exam Vitals reviewed. Constitutional: General: He is not in acute distress. Appearance: He is not ill-appearing or diaphoretic. Neck: Comments: Central line. Cardiovascular: Rate and Rhythm: Normal rate and regular rhythm. Pulses: Normal pulses. Heart sounds: No murmur heard. Pulmonary: Effort: Pulmonary effort is normal. Breath sounds: No wheezing, rhonchi or rales. Abdominal: General: There is no distension. Palpations: Abdomen is soft. Tenderness: There is no abdominal tenderness. Genitourinary: Comments: Meyer. Musculoskeletal: Right lower leg: Edema present. Left lower leg: Edema present. Skin: General: Skin is warm and dry. Capillary Refill: Capillary refill takes less than 2 seconds. Findings: Bruising present. Comments: MSI well approximated. No redness, warmth or drainage noted. Neurological: General: No focal deficit present. Mental Status: He is alert and oriented to person, place, and time. Psychiatric: Mood and Affect: Mood normal. Behavior: Behavior normal. Thought Content: Thought content normal. Judgment: Judgment normal. Assessment: CAD s/p CABGx3 HTN HLD DM (A1c 7.9) RBBB Post operative Pulm Management: Normal Post-operative Course Post-operative Atrial Fibrillation: []Yes [x] No Acute blood loss anemia/consumptive thrombocytopenia Plan: Patient Status: Telemetry Continue aspirin, statin and BB. Increase atenolol to home dose 50mg daily. -Takes enalapril at home as well. Will hold for now d/t increased creat. Lasix 40mg IV BID. RACHELLE meyer [place]. Add MOM to bowel regimen. DVT prophy. Endocrinology following for blood glucose management. PT/OT: Home with home health PT (03/22/23) Pulmonary hygiene: IS and Acapella GI prophy: PO protonix DVT prophy:TEDs, SCDs, and Heparin SubQ Disposition: Plan for home, potentially Saturday. Central Line: [x]Yes [] No Arterial Line: []Yes [x] N (more content not included)... Normal [facility] XR CHEST 1 VIEWon 03-25-2023 XR CHEST 1 VIEW Patient Name: ROBERT LIPSCOMB : 1955 Exam Date/Time: 03/25/2023 05:32 Procedure: XR CHEST 1 VIEW Ordering Provider: JACINTO KYLE Reason For Exam: Shortness of breath CHEST - PORTABLE: CLINICAL INDICATION: Respiratory distress for follow up. . TECHNIQUE: Portable AP COMPARISON: One day ago IMPRESSION: FINDINGS/IMPRESSION: Limitations: Slight patient rotation Lines, tubes, and devices: Interval removal of mediastinal drain and left basilar chest tube.. Right IJ vascular sheath remains in place. Cardiomediastinal silhouette: Postsurgical changes with median sternotomy wires/plates. Atherosclerotic calcifications Lungs/Pleura: Low lung volumes with elevation of the right hemidiaphragm. Mild left greater than right basilar atelectasis. Questional trace left pleural effusion. No pneumothorax. Osseous structures: Unchanged in appearance. Soft tissues: No soft tissue abnormality is detected. Report Dictated on Electronically Signed By: Akash Rivera MD Electronically Signed Date/Time: 03/25/2023 7:42 AM EDT Normal [facility] XR Chest Single viewon 03-25 [facility] Radiology Study observation (narrative) [facility] XR Chest Single viewOrdered By: Aly Rivera on 03-25-2023 [facility] Work Phone: BASIC METABOLIC PANELon 10-0 Anion gap [Moles/Vol] 8 mmol/L Normal 3-13 [facility] Comment on above: Performed By: #### L AB15, [id number] #### Mulcher Operator: TONI NAVA ([id number]) [facility] [address] [place] [address] Calcium [Mass/Vol] 8.1 mg/dL Low 8.4-10.4 [facility] Comment on above: Performed By: #### L AB15, [id number] #### Mulcher Operator: TONI NAVA ([id number]) [facility]) [address] [place] [address] [place] Chloride [Moles/Vol] 104 mmol/L Normal 98-107 [facility] Comment on above: Performed By: #### L AB15, [id number] #### Mulcher Operator: TONI NAVA ([id number]) [facility] [address] [place] [address] [place] CO2 [Moles/Vol] 24 mmol/L Normal 22-30 [facility] Comment on above: Performed By: #### L AB15, [id number] #### Mulcher Operator: TONI NAVA ([id number]) [facility] [address] [place] [address] Creatinine [Mass/Vol] 1.78 mg/dL High 0.66-1.25 [facility] Comment on above: Performed By: #### L AB15, [id number] #### Mulcher Operator: TONI NAVA ([id number]) [facility] [address] [place] [address] [place] GLOMERULAR FILTRATION RATE ML/MIN/1.73 SQ M.PREDICTED 40.8 mL/min/1.73m*2 Low >60.0 [facility] Comment on above: Result Comment: Calc ulation based on the Chronic Kidney Disease Epidemiology Collaboration (CKD-EPI) equation refit without adjustment for race Performed By: #### L AB15, [id number] #### Mulcher Operator: TONI NAVA ([id number]) [facility] ([facility]) [address] [place] [address] Glucose [Mass/Vol] 188 mg/dL High 70-100 [facility] Comment on above: Performed By: #### L AB15, [id number] #### Mulcher Operator: TONI NAVA ([id number]) [facility] ([facility]) [address] [place] [address] [place] Potassium [Moles/Vol] 4.2 mmol/L Normal 3.5-5.1 [facility] Comment on above: Performed By: #### L AB15, [id number] #### Mulcher Operator: TONI NAVA ([id number]) [facility] [address] [place] [address] [place] Sodium [Moles/Vol] 137 mmol/L Normal 135-145 [facility] Comment on above: Performed By: #### L AB15, [id number] #### Mulcher Operator: TONI NAVA ([id number]) [facility] ([facility]) [address] [place] [address] [place] Urea nitrogen [Mass/Vol] 38 mg/dL High 9-20 [facility] Comment on above: Performed By: #### L AB15, [id number] #### Mulcher Operator: TONI NAVA ([id number]) [facility] ([facility]) [address] [place] [address] Basic metabolic 1998 panelon 03-24-2023 Anion gap [Moles/Vol] 8 mmol/L 3 - 13 mmol/L [facility] Calcium [Mass/Vol] 8.1 mg/dL Low 8.4 - 10. 4 mg/dL [facility] Chloride [Moles/Vol] 104 mmol/L 98 - 10 7 mmol/L [facility] CO2 [Moles/Vol] 24 mmol/L 22 - 30 mmol/L [facility] Creatinine [Mass/Vol] 1.78 mg/dL High 0.66 - 1.25 mg/dL [facility] GFR/1.73 sq M.predicted MDRD (S/P/Bld) [Vol rate/Area] 40.8 mL/min/{1.73_m2} Low - PINF [facility] Glucose [Mass/Vol] 188 mg/dL High 70 - 100 mg/dL [facility] Interpretation and review of laboratory results Abnormal [facility] Potassium [Moles/Vol] 4.2 mmol/L 3.5 - 5.1 mmol/L [facility] Sodium [Moles/Vol] 137 mmol/L 135 - 145 mmol/L [facility] Urea nitrogen [Mass/Vol] 38 mg/dL High 9 - 20 mg/d L [facility] CBC (HEMOGRAM)on 03-24-2023 Erythrocyte distribution width (RBC) [Ratio] 14.3 % Normal 11.5-14.5 [facility] Comment on above: Performed By: #### L AB15, [id number] #### Mulcher Operator: TONI NAVA ([id number]) [facility] ([facility]) [address] [place] [address] ERYTHROCYTE MEAN CORPUSCULAR HEMOGLOBIN CONCENTRATION (G/DL) BY AUTOMATED 32.6 % Normal 32.0-36.0 [facility] Comment on above: Performed By: #### L AB15, [id number] #### Mulcher Operator: TONI NAVA ([id number]) [facility] ([facility]) [address] [place] [address] Hematocrit (Bld) [Volume fraction] 30.8 % Low 40.0-52.0 [facility] Comment on above: Performed By: #### L AB15, [id number] #### Mulcher Operator: TONI NAVA ([id number]) [facility] ([facility]) [address] [place] [address] Hemoglobin (Bld) [Mass/Vol] 10.1 g/dL Low 13.0-18.0 [facility] Comment on above: Performed By: #### L AB15, [id number] #### Mulcher Operator: TONI NAVA ([id number]) [facility] ([facility]) [address] [place] [address] MCH (RBC) [Entitic mass] 28.6 pg Normal 26.0-34.0 [facility] Comment on above: Performed By: #### L AB15, [id number] #### Mulcher Operator: TONI NAVA ([id number]) [facility] ([facility]) [address] [place] [address] MCV (RBC) [Entitic vol] 87.6 fL Normal 80.0-98.0 S [facility] Comment on above: Performed By: #### L AB15, [id number] #### Mulcher Operator: TONI NAVA ([id number]) [facility] ([facility]) [address] [place] [address] Platelet mean volume (Bld) [Entitic vol] 8.7 fL Normal 7.4-12.4 [facility] Comment on above: Performed By: #### L AB15, [id number] #### Mulcher Operator: TONI NAVA ([id number]) [facility] ([facility]) [address] [place] [address] PLATELETS (10*3/UL) IN BLOOD AUTOMATED COUNT 139 10*3/uL Low 140-440 [facility] Comment on above: Performed By: #### L AB15, [id number] #### Mulcher Operator: TONI NAVA ([id number]) [facility]) [address] [place] [address] RBC (Bld) [#/Vol] 3.52 10*6/uL Low 4.40-5.90 [facility] Comment on above: Performed By: #### L AB15, [id number] #### Mulcher Operator: TONI NAVA ([id number]) [facility] ([facility]) [address] [place] [address] WBC (Bld) [#/Vol] 11.3 10*3/uL High 3.6-10.7 [facility] Comment on above: Performed By: #### L AB15, [id number] #### Mulcher Operator: TONI NAVA ([id number]) [facility] ([facility]) [address] [place] [address] CBC panel Auto (Bld)Ordered By: Liseth Ibarra on 03-24-2023 Erythrocyte distribution width (RBC) [Ratio] 14.3 % 11.5 - 14.5 % [facility] Hematocrit (Bld) [Volume fraction] 30.8 % Low 40.0 - 52.0 % [facility] Hemoglobin (Bld) [Mass/Vol] 10.1 g/dL Low 13.0 - 18.0 g/dL [facility] Interpretation and review of laboratory results Abnormal [facility] MCH (RBC) [Entitic mass] 28.6 pg 26. 0 - 34.0 pg [facility] MCHC (RBC) [Mass/Vol] 32.6 % 32.0 - 36.0 % [facility] MCV (RBC) [Entitic vol] 87.6 fL 80.0 - 98.0 fL [facility] Platelet mean volume (Bld) [Entitic vol] 8.7 fL 7.4 - 12.4 fL [facility] Platelets (Bld) [#/Vol] 139 10*3/uL Low 140 - 440 10*3/uL [facility] RBC (Bld) [#/Vol] 3.52 10*6/uL Low 4.40 - 5.9 0 10*6/uL [facility] WBC (Bld) [#/Vol] 11.3 10*3/uL High 3.6 - 10.7 10*3/uL [facility] - Chemistry and C hemistry - challengeon 03-24-2023 Glucose [Mass/Vol] 171 mg/dL High 70 - 100 mg/dL [facility] Glucose [Mass/Vol] 250 mg/dL High 70 - 100 mg/dL [facility] Glucose [Mass/Vol] 188 mg/dL High 70 - 100 mg/dL [facility] Magnesium [Mass/Vol] 2.0 mg/dL 1.6 - 2 .3 mg/dL [facility] MAGNESIUMon 03-24-2023 Magnesium [Mass/Vol] 2.0 mg/dL Normal 1.6-2.3 [facility] Comment on above: Performed By: #### L AB15, [id number] #### Mulcher Operator: TONI NAVA ([id number]) [facility] ([facility]) [address] [place] [address] Magnesium [Mass/Vol]on 03-24 Interpretation and review of laboratory results Normal [facility] No Panel Informationon 03-24 Interpretation and review of laboratory results Abnormal [facility] Interpretation and review of laboratory results Abnormal [facility] Interpretation and review of laboratory results Abnormal [facility] Progress Noteon 03-24-2023 Progress Note PATIENT NAME: Robert Lipscomb DATE: 03/24/23 Mr. Robert Lipscomb is a 67 year old male patient with a PMHx that includes CAD s/p SUZETTE tp RCA (2004), RBBB, HTN, HLD, anemia and diabetes (A1c 7.9). He was referred to CT Surgery by Dr. Armendariz. Patient had underwent coronary cath and was found to have severe multivessel CAD. He was seen in the OP setting by Dr. Childress. He consented and was scheduled for CABG on 03/21/23. Surgery/Procedure: 03/21/23: Dr. Childress- CABGx3 (PIERSON-LAD, SVG-OM, SVG-RPDA), LEVH Interval History: 03/24/23, POD#3 - Pt VSS overnight, Minimal CT output, CXR clearing, creat is 1.7 baseline 1.5 - other labs stable, Review of Systems Constitutional: Negative for diaphoresis, fatigue and fever. Respiratory: Negative for cough, shortness of breath and wheezing. Cardiovascular: Negative for chest pain, palpitations and leg swelling. Gastrointestinal: Negative for abdominal distention, constipation and diarrhea. Skin: Negative for color change, pallor and rash. Objective: Vitals: BP: 123/55, MAP (mmHg): 75, BP Method: Automatic Heart Rate: 80 Resp: 18 Temp: 36.6 ?C (97.9 ?F), Temp Source: Temporal BMI (Calculated): 44.18 CXR: BMP: Recent Labs 03/22/232 03/23/23 0004 03/24/23121 NA 140 137 137 K 4.7 4.2 4.2 CL 111* 109* 104 CO2 19* 19* 24 BUN 20 25* 38* CREATININE 1.32* 1.40* 1.78* CALCIUM 8.1* 7.9* 8.1* MG 2.2 2.2 2.0 CBC: Recent Labs 03/22/2313103/23/23 0004 03/24/23121 WBC 12.7* 12.6* 11.3* HGB 10.4* 9.8* 10.1* HCT 31.5* 30.3* 30.8* PLT 163 125* 139* MCV 85.9 87.1 87.6 RDW 14.1 14.4 14.3 INR: Recent Labs 03/22/23131 INR 1.2* Physical Exam Cardiovascular: Rate and Rhythm: Normal rate and regular rhythm. Heart sounds: Normal heart sounds. No murmur heard. No friction rub. Pulmonary: Effort: Pulmonary effort is normal. Skin: General: Skin is warm and dry. Capillary Refill: Capillary refill takes less than 2 seconds. Findings: Bruising and ecchymosis present. Neurological: Mental Status: He is alert. Psychiatric: Behavior: Behavior is cooperative. Assessment: CAD s/p CABGx3 HTN HLD DM (A1c 7.9) RBBB Post operative Pulm Management: Normal Post-operative Course Post-operative Atrial Fibrillation: []Yes [x] No Acute blood loss anemia/consumptive thrombocytopenia Plan: Patient Status: ICU CXR wet creat elevated likely cardio renal - will need diuresis continue 40 lasix IV BID - continue meyer cath GDMT for CAD with EF preserved aspirin and statin, BB DVT prophy. Bowel regimen. Daily labs and chest xray. PRN electrolyte replacement protocols. Chest tubes assessed: no air leak, subcutaneous air noted. Chest tubes removed without difficulty and dressing applied. Patient tolerated well. Patient and nurse educated on possible complications to observe for. Will continue to monitor. PT/OT: Home With Home health Pulmonary hygiene: IS and Acapella GI prophy: IV protonix DVT prophy: TEDs, SCDs, and Heparin SubQ Disposition: Home with home health this week Central Line: [x]Yes [] No Arterial Line: []Yes [x] No Meyer: []Yes [x] No Restraints: []Yes [x] No Patient discussed and plan of day developed from multidisciplinary rounds between Cardiothoracic Surgery (Cardiothoracic Surgeon, MARIANO) and Critical Care Attending Cardiac Core Medications: ASA, Statin, and No BB due to hypotension EF: 55% (03/21/23) Blood Conservation: None noted in post-operative period Blindstitch Hemmer: Dr. Armendariz [facility] Progress Note Department of Internal Medicine Division of Endocrinology, Diabetes, & Metabolism Endocrinology Note Patient Name: Robert Lipscomb : 1955 AGE: 67 y.o. Room/Bed: [facility]/[address] Admission Date: 03/21/2023 Visit Date: 03/24/2023 Reason for Endocrine Consult: post op heart Provider/Team Requesting Consult: cts PCP: TEMO RODRIGUEZ Outpt Gluing Crew Leader: No ASSESSMENT: Type 2 DM with with hyperglycemia with usp insulin use S/p CABG Obesity Body mass index is 44.3 kg/m?. PLAN: BG above target Increase Lantus to 66 units every morning Increase Humalog to 24 units before meals with medium dose correction before meals In future pt will benefit from SGLT-2 Inhibitor and CGM. Not clear if he is taking victoza. In future will benefit from ozempic Discussed with nurse ICU goal <180 GMF goal <150 POCT BG q1 Hypoglycemia per protocol Carb controlled diet ANTICIPATED ENDOCRINE HOME GOING RECOMMENDATIONS: Optimized for Discharge from Endocrine standpoint: No Home Going Endocrine Rx Recommendations-- Most likely basal bolus insulin in pens with insulin pen needels. No Outpt Follow Up-- pcp SUBJECTIVE/HPI: CHIEF COMPLAINT: s/p CABG Denies nausea, vomiting, or abd pain Tolerating diet BG still above target Cr 1.78 GFR 40.8 Type of DM: 2 Onset of DM: over 10 years per patient Home DM Medication Regimen: per chart lantus pens 70 am and 50 pm, victoza 1.8 mg daily ? , prandin 4 mg tid meals po DM control (last A1c/glucose data): Lab Results Component Value Date HGBA1C 7.9 (H) 03/11/2023 Glucose Date/Time Value Ref Range Status 03/24/2023 08:51 AM 188 (H) 70 - 100 mg/dL Final 03/23/2023 05:46 PM 239 (H) 70 - 100 mg/dL Final 03/23/2023 11:52 AM 229 (H) 70 - 100 mg/dL Final 03/23/2023 10:03 AM 178 (H) 70 - 100 mg/dL Final 03/23/2023 07:56 AM 103 (H) 70 - 100 mg/dL Final 03/23/2023 05:29 AM 139 (H) 70 - 100 mg/dL Final Review of Systems ROS negative except for those mentioned in HPI. OBJECTIVE: Vitals: 03/24/23 0400 03/24/23 0500 03/24/23 0600 03/24/23 0700 BP: (!) 148/57 139/68 BP Location: Right arm Right arm Patient Position: Lying Lying Pulse: 81 79 83 80 Resp: 18 18 Temp: 36.9 ?C (98.4 ?F) 36.6 ?C (97.9 ?F) TempSrc: Temporal Temporal SpO2: 98% 99% 99% 96% Weight: Height: PF: Physical Exam Vitals and nursing note reviewed. Constitutional: General: He is awake. He is not in acute distress. Appearance: He is ill-appearing. He is not diaphoretic. HENT: Head: Normocephalic. Mouth/Throat: Mouth: Mucous membranes are moist. Cardiovascular: Rate and Rhythm: Normal rate. Pulmonary: Effort: Pulmonary effort is normal. Abdominal: Palpations: Abdomen is soft. Tenderness: There is no abdominal tenderness. Skin: General: Skin is warm and dry. Comments: Intact incision Neurological: Mental Status: He is alert and oriented to person, place, and time. Mental status is at baseline. Psychiatric: Behavior: Behavior is slowed. 24 hour intake/output: Intake/Output Summary (Last 24 hours) at 03/24/2023 0904 Last data filed at 03/24/2023 0700 Gross per 24 hour Intake -- Output 2415 ml Net -2415 ml Diet: Adult diet Regular; 5 carb choices (75 gm/meal) Medications (as per EMR): HomeMeds: Current Outpatient Medications Medication Instructions amLODIPine (Norvasc) 5 MG tablet Daily Apoaequorin (Prevagen) 10 MG capsule No dose, route, or frequency recorded. aspirin 324 mg, Oral, Daily atenolol (Tenormin) 50 MG tablet No dose, route, or frequency recorded. chlorhexidine (Peridex) 0.12 % solution 15 mL, Mouth/Throat, Use night before and morning of surgery enalapril (Vasotec) 20 MG tablet No dose, route, or frequency recorded. insulin glargine (Lantus SoloStar) 100 UNIT/ML pen SubCUTAneous, 70 units in the morning, 50 units in the evening liraglutide (Victoza) 18 MG/3ML injection No dose, route, or frequency recorded. mupirocin (Bactroban) 2 % ointment Apply liberal amount per nostril the night before surgery and then again the morning of surgery nitroglycerin (NITROSTAT) 0.4 mg, SubLINGual, Every 5 min PRN repaglinide (PRANDIN) 4 mg, 3 times daily before meals rosuvastatin (Crestor) 20 MG tablet Nightly Scheduled Meds:acetaminophen, 1,000 mg, Oral, q8h aspirin, 81 mg, Oral, Daily atenolol, 25 mg, Oral, Daily chlorhexidine, 15 mL, Mouth/Throat, BID furosemide, 40 mg, IntraVENous, BID heparin, 5,000 Units, SubCUTAneous, BID insulin glargine, 66 Units, SubCUTAneous, q AM insulin lispro, 0-12 Units, SubCUTAneous, TID WC Insulin Lispro, 24 Units, SubCUTAneous, TID WC Lidocaine, 1 patch, Topical, Daily mupirocin, , Nasal, BID pantoprazole, 40 mg, IntraVENous, Daily polyethylene glycol (PEG) 3350, 17 g, Oral, Daily rosuvastatin, 20 mg, Oral, Nightly senna-docusate sodium, 2 tablet, Oral, Nightly sodium chloride 0.9%, 10 mL, IntraVENous, 2 times per day Continu (more content not included)... Normal [facility] XR CHEST 1 VIEWon 10-01-2023 XR CHEST 1 VIEW [facility] Name: [facility]SCOMB [facility] 1955 [id number] Exam Date/Time: 03/24/2023 05:16 Procedure: XR CHEST 1 VIEW Ordering Provider: JACINTO KYLE Reason For Exam: Shortness of breath CLINICAL INDICATION: Shortness of breath COMPARISON: 03/23/2023 TECHNIQUE: Single portable AP radiograph of the chest. FINDINGS: LUNGS/PLEURA:Mild bibasilar atelectasis remains unchanged. No new infiltrate or effusion. Trachea is midline. No pneumothorax. MEDIASTINUM:Heart size and mediastinal contours are normal. VASCULARITY: Normal BONES:Unremarkable SUPPORT LINES: Left basilar chest tube and mediastinal drain in unchanged position. OTHER: IMPRESSION: Left basilar chest tube in unchanged position. No pneumothorax. Unchanged bibasilar atelectasis. No new infiltrate or effusion. Report Dictated on Electronically Signed By: Carl Thompson MD Electronically Signed Date/Time: 03/24/2023 9:05 AM EDT Normal [facility] XR Chest Single viewon 03-24 [facility] Radiology Study observation (narrative) [facility] XR Chest Single viewOrdered By: Claudine Thompson on 03-24-2023 [facility] Work Phone: BASIC METABOLIC PANELon 09-3 Anion gap [Moles/Vol] 9 mmol/L Normal 3-13 [facility] Comment on above: Performed By: #### L AB15, [id number] ####Mulcher Operator: TONI NAVA ([id number])[facility] ([facility])[address] [place] [address] Calcium [Mass/Vol] 7.9 mg/dL Low 8.4-10.4 [facility] Comment on above: Performed By: #### L AB15, [id number] ####Mulcher Operator: TONI NAVA ([id number])[facility] ([facility])[address] [place] [address] Chloride [Moles/Vol] 109 mmol/L High 98-107 [facility] Comment on above: Performed By: #### L AB15, [id number] ####Mulcher Operator: TONI NAVA ([id number])[facility])[address] [place] [address] CO2 [Moles/Vol] 19 mmol/L Low 22-30 [facility] Comment on above: Performed By: #### L AB15, [id number] ####Mulcher Operator: TONI NAVA ([id number])[facility] ([facility])[address] [place] [address] Creatinine [Mass/Vol] 1.40 mg/dL High 0.66-1.25 [facility] Comment on above: Performed By: #### L AB15, [id number] ####Mulcher Operator: TONI NAVA ([id number])[facility] ([facility])[address] [place] [address] [place] GLOMERULAR FILTRATION RATE ML/MIN/1.73 SQ M.PREDICTED 54.4 mL/min/1.73m*2 Low >60.0 [facility] Comment on above: Result Comment: Calc ulation based on the Chronic Kidney Disease Epidemiology Collaboration (CKD-EPI) equation refit without adjustment for race Performed By: #### L AB15, [id number] ####Mulcher Operator: TONI NAVA ([id number])[facility] ([facility])[address] [place] [address] [place] Glucose [Mass/Vol] 143 mg/dL High 70-100 [facility] Comment on above: Performed By: #### L AB15, [id number] ####Mulcher Operator: TONI NAVA ([id number])[facility] ([facility])[address] [place] [address] [place] Potassium [Moles/Vol] 4.2 mmol/L Normal 3.5-5.1 [facility] Comment on above: Performed By: #### L AB15, [id number] ####Mulcher Operator: TONI NAVA ([id number])[facility] ([facility])[address] [place] [address] [place] Sodium [Moles/Vol] 137 mmol/L Normal 135-145 [facility] Comment on above: Performed By: #### L AB15, [id number] ####Mulcher Operator: TONI NAVA ([id number])[facility] ([facility])[address] [place] [address] Urea nitrogen [Mass/Vol] 25 mg/dL High 9-20 [facility] Comment on above: Performed By: #### L AB15, [id number] ####Mulcher Operator: TONI NAVA ([id number])[facility] ([facility])[address] [place] [address] Basic metabolic 1998 panelon 03-23-2023 Anion gap [Moles/Vol] 9 mmol/L 3 - 13 mmol/L [facility] Calcium [Mass/Vol] 7.9 mg/dL Low 8.4 - 10. 4 mg/dL [facility] Chloride [Moles/Vol] 109 mmol/L High 98 - 10 7 mmol/L [facility] CO2 [Moles/Vol] 19 mmol/L Low 22 - 30 mmol/L [facility] Creatinine [Mass/Vol] 1.40 mg/dL High 0.66 - 1.25 mg/dL [facility] GFR/1.73 sq M.predicted MDRD (S/P/Bld) [Vol rate/Area] 54.4 mL/min/{1.73_m2} Low - PINF [facility] Glucose [Mass/Vol] 143 mg/dL High 70 - 100 mg/dL [facility] Interpretation and review of laboratory results Abnormal [facility] Potassium [Moles/Vol] 4.2 mmol/L 3.5 - 5.1 mmol/L [facility] Sodium [Moles/Vol] 137 mmol/L 135 - 145 mmol/L [facility] Urea nitrogen [Mass/Vol] 25 mg/dL High 9 - 20 mg/d L [facility] CALCIUM, IONIZEDon CALCIUM IONIZED 4.40 mg/dL Normal 4.30-5.20 [facility] Comment on above: Order Comment: Obtai n PRN and check ionized Ca level if serum Ca level less than 8.0 Performed By: #### L AB54 ####Mulcher Operator: TONI NAVA ([id number])[facility])[address] [place] [address] PH, IONIZED CALCIUM 7.32 Normal 7.31-7.46 [facility] Comment on above: Order Comment: Obtai n PRN and check ionized Ca level if serum Ca level less than 8.0 Performed By: #### L AB54 ####Mulcher Operator: TONI NAVA ([id number])[facility])[address] [place] [address] CBC (HEMOGRAM)on 03-23-2023 Erythrocyte distribution width (RBC) [Ratio] 14.4 % Normal 11.5-14.5 [facility] Comment on above: Performed By: #### L [id number] ####Mulcher Operator: TONI NAVA ([id number])[facility])[address] [place] [address] ERYTHROCYTE MEAN CORPUSCULAR HEMOGLOBIN CONCENTRATION (G/DL) BY AUTOMATED 32.5 % Normal 32.0-36.0 [facility] Comment on above: Performed By: #### L [id number] ####Mulcher Operator: TONI NAVA ([id number])[facility])[address] [place] [address] Hematocrit (Bld) [Volume fraction] 30.3 % Low 40.0-52.0 [facility] Comment on above: Performed By: #### L [id number] ####Mulcher Operator: TONI NAVA ([id number])[facility])[address] [place] [address] Hemoglobin (Bld) [Mass/Vol] 9.8 g/dL Low 13.0-18.0 [facility] Comment on above: Performed By: #### L [id number] ####Mulcher Operator: TONI NAVA ([id number])[facility])[address] [place] [address] MCH (RBC) [Entitic mass] 28.3 pg Normal 26.0-34.0 [facility] Comment on above: Performed By: #### L [id number] ####Mulcher Operator: TONI NAVA ([id number])[facility] ([facility])[address] [place] [address] MCV (RBC) [Entitic vol] 87.1 fL Normal 80.0-98.0 [facility] Comment on above: Performed By: #### L [id number] ####Mulcher Operator: TONI NAVA ([id number])[facility] ([facility])[address] [place] [address] Platelet mean volume (Bld) [Entitic vol] 8.2 fL Normal 7.4-12.4 [facility] Comment on above: Performed By: #### L [id number] ####Mulcher Operator: TONI NAVA ([id number])[facility] ([facility])[address] [place] [address] PLATELETS (10*3/UL) IN BLOOD AUTOMATED COUNT 125 10*3/uL Low 140-440 [facility] Comment on above: Performed By: #### L [id number] ####Mulcher Operator: TONI NAVA ([id number])[facility] ([facility])[address] [place] [address] RBC (Bld) [#/Vol] 3.48 10*6/uL Low 4.40-5.90 [facility] Comment on above: Performed By: #### L [id number] ####Mulcher Operator: TONI NAVA ([id number])[facility] ([facility])[address] [place] [address] WBC (Bld) [#/Vol] 12.6 10*3/uL High 3.6-10.7 [facility] Comment on above: Performed By: #### L [id number] ####Mulcher Operator: TONI NAVA ([id number])[facility])[address] [place] [address] CBC panel Auto (Bld)on 03-23 Erythrocyte distribution width (RBC) [Ratio] 14.4 % 11.5 - 14.5 % [facility] Hematocrit (Bld) [Volume fraction] 30.3 % Low 40.0 - 52.0 % [facility] Hemoglobin (Bld) [Mass/Vol] 9.8 g/dL Low 13.0 - 18.0 g/dL [facility] Interpretation and review of laboratory results Abnormal [facility] MCH (RBC) [Entitic mass] 28.3 pg 26. 0 - 34.0 pg [facility] MCHC (RBC) [Mass/Vol] 32.5 % 32.0 - 36.0 % [facility] MCV (RBC) [Entitic vol] 87.1 fL 80.0 - 98.0 fL [facility] Platelet mean volume (Bld) [Entitic vol] 8.2 fL 7.4 - 12.4 fL [facility] Platelets (Bld) [#/Vol] 125 10*3/uL Low 140 - 440 10*3/uL [facility] RBC (Bld) [#/Vol] 3.48 10*6/uL Low 4.40 - 5.9 0 10*6/uL [facility] WBC (Bld) [#/Vol] 12.6 10*3/uL High 3.6 - 10.7 10*3/uL [facility] Calcium.ionized [Moles/Vol]o n 03-23-2023 Calcium.ionized (Bld) [Moles/Vol] 4.40 mg/dL 4.30 - 5.20 mg/dL [facility] Interpretation and review of laboratory results Normal [facility] PH, IONIZED CALCIUM 7.32 7.31 - 7.46 [facility] - Chemistry and C hemistry - challengeon 03-23-2023 Glucose [Mass/Vol] 103 mg/dL High 70 - 100 mg/dL [facility] Glucose [Mass/Vol] 178 mg/dL High 70 - 100 mg/dL [facility] Glucose [Mass/Vol] 229 mg/dL High 70 - 100 mg/dL [facility] Glucose [Mass/Vol] 239 mg/dL High 70 - 100 mg/dL [facility] Glucose [Mass/Vol] 139 mg/dL High 70 - 100 mg/dL [facility] Glucose [Mass/Vol] 153 mg/dL High 70 - 100 mg/dL [facility] Glucose [Mass/Vol] 120 mg/dL High 70 - 100 mg/dL [facility] Glucose [Mass/Vol] 118 mg/dL High 70 - 100 mg/dL [facility] Magnesium [Mass/Vol] 2.2 mg/dL 1.6 - 2 .3 mg/dL [facility] MAGNESIUMon 03-23-2023 Magnesium [Mass/Vol] 2.2 mg/dL Normal 1.6-2.3 [facility] Comment on above: Performed By: #### L AB15, [id number] ####Mulcher Operator: TONI NAVA ([id number])[facility] ([facility] Magnesium [Mass/Vol]on 03-23 Interpretation and review of laboratory results Normal [facility] No Panel Informationon 03-23 Interpretation and review of laboratory results Abnormal [facility] Interpretation and review of laboratory results Abnormal [facility] Interpretation and review of laboratory results Abnormal [facility] Interpretation and review of laboratory results Abnormal [facility] Interpretation and review of laboratory results Abnormal [facility] Progress Noteon 03-23-2023 Progress Note Department of Internal Medicine Division of Endocrinology, Diabetes, & Metabolism Endocrinology Note Patient Name: Robert Lipscomb : 1955 AGE: 67 y.o. 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 PLAN: Lantus 60 units now then discontinue insulin drip after 1 hour Lantus 60 units every morning starting tomorrow Humalog 20 units before meals with medium dose correction before meals In future pt will benefit from SGLT-2 Inhibitor and CGM. Discussed with nurse ICU goal <180 GMF goal <150 POCT BG q1 Hypoglycemia per protocol Carb controlled diet ANTICIPATED ENDOCRINE HOME GOING RECOMMENDATIONS: Optimized for Discharge from Endocrine standpoint: No Home Going Endocrine Rx Recommendations-- Most likely basal bolus insulin Outpt Follow Up-- pcp SUBJECTIVE/HPI: CHIEF COMPLAINT: No chief complaint on file. Cabgx3 Will clarify DM2 history and medications once extubated Current insulin drip rate 2 units/h Was on 6 units/h before Type of DM: 2 Onset of DM: over 10 years per patient Home DM Medication Regimen: per chart lantus pens 70 am and 50 pm, victoza 1.8 mg daily ? , prandin 4 mg tid meals po DM control (last A1c/glucose data): Lab Results Component Value Date HGBA1C 7.9 (H) 03/11/2023 Glucose Date/Time Value Ref Range Status 03/23/2023 05:29 AM 139 (H) 70 - 100 mg/dL Final 03/23/2023 03:56 AM 153 (H) 70 - 100 mg/dL Final 03/23/2023 02:04 AM 120 (H) 70 - 100 mg/dL Final 03/23/2023 01:01 AM 118 (H) 70 - 100 mg/dL Final 03/22/2023 10:57 PM 185 (H) 70 - 100 mg/dL Final 03/22/2023 09:57 PM 204 (H) 70 - 100 mg/dL Final Review of Systems ROS negative except for those mentioned in HPI. OBJECTIVE: Vitals: 03/23/23 0400 03/23/23 0500 03/23/23 0600 03/23/23 0700 BP: (!) 155/48 (!) 155/53 138/55 BP Location: Patient Position: Lying Pulse: 97 96 86 Resp: 20 Temp: 37.3 ?C (99.1 ?F) TempSrc: Temporal SpO2: 92% 92% 95% Weight: 299 lb 4.8 oz (136 kg) Height: PF: Physical Exam Vitals and nursing note reviewed. Constitutional: General: He is awake. He is not in acute distress. Appearance: He is ill-appearing. He is not diaphoretic. HENT: Head: Normocephalic. Mouth/Throat: Mouth: Mucous membranes are moist. Cardiovascular: Rate and Rhythm: Normal rate. Pulmonary: Effort: Pulmonary effort is normal. Abdominal: Palpations: Abdomen is soft. Tenderness: There is no abdominal tenderness. Skin: General: Skin is warm and dry. Comments: Intact incision Neurological: Mental Status: He is alert and oriented to person, place, and time. Mental status is at baseline. Psychiatric: Behavior: Behavior is slowed. 24 hour intake/output: Intake/Output Summary (Last 24 hours) at 03/23/2023 1134 Last data filed at 03/23/2023 0600 Gross per 24 hour Intake 1200 ml Output 1165 ml Net 35 ml Diet: Adult diet Regular; 5 carb choices (75 gm/meal) Medications (as per EMR): HomeMeds: Current Outpatient Medications Medication Instructions amLODIPine (Norvasc) 5 MG tablet Daily Apoaequorin (Prevagen) 10 MG capsule No dose, route, or frequency recorded. aspirin 324 mg, Oral, Daily atenolol (Tenormin) 50 MG tablet No dose, route, or frequency recorded. chlorhexidine (Peridex) 0.12 % solution 15 mL, Mouth/Throat, Use night before and morning of surgery enalapril (Vasotec) 20 MG tablet No dose, route, or frequency recorded. insulin glargine (Lantus SoloStar) 100 UNIT/ML pen SubCUTAneous, 70 units in the morning, 50 units in the evening liraglutide (Victoza) 18 MG/3ML injection No dose, route, or frequency recorded. mupirocin (Bactroban) 2 % ointment Apply liberal amount per nostril the night before surgery and then again the morning of surgery nitroglycerin (NITROSTAT) 0.4 mg, SubLINGual, Every 5 min PRN repaglinide (PRANDIN) 4 mg, 3 times daily before meals rosuvastatin (Crestor) 20 MG tablet Nightly Scheduled Meds:acetaminophen, 1,000 mg, Oral, q8h aspirin, 81 mg, Oral, Daily atenolol, 25 mg, Oral, Daily chlorhexidine, 15 mL, Mouth/Throat, BID furosemide, 40 mg, IntraVENous, BID heparin, 5,000 Units, SubCUTAneous, BID insulin glargine, 60 Units, SubCUTAneous, Once [START ON 03/24/2023] insulin glargine, 60 Units, SubCUTAneous, q AM insulin lispro, 0-12 Units, SubCUTAneous, TID WC Insulin Lispro, 20 Units, SubCUTAneous, TID WC Lidocaine, 1 patch, Topical, Daily mupirocin, , Nasal, BID pantoprazole, 40 mg, IntraVENous, Daily polyethylene glycol (PEG) 3350, 17 g, Oral, Daily rosuvastatin, 20 mg, Oral, Nightly senna-docusate sodium, 2 tablet, Oral, Nightly sodium chloride 0.9%, 10 mL, IntraVENous, 2 devin (more content not included)... Normal [facility] XR CHEST 1 VIEWon 03-23-2023 XR CHEST 1 VIEW Patient Name: ROBERT LIPSCOMB : 1955 Exam Date/Time: 03/23/2023 05:15 Procedure: XR CHEST 1 VIEW Ordering Provider: JACINTO KYLE Reason For Exam: Shortness of breath CHEST - PORTABLE: CLINICAL INDICATION: Respiratory distress for follow up TECHNIQUE: Portable AP COMPARISON: One day ago FINDINGS: Life support devices: [place] catheter has been removed. A central venous sheath remains in place. Left chest tube is noted. A tube overlies the mid chest may be a mediastinal drain Heart/Mediastinum: Unchanged Lungs/Pleura: Atelectasis at the bases. Blunting of the costophrenic angles is likely pleural fluid. IMPRESSION: Left chest tube. Atelectasis at the bases and probable pleural fluid. Report Dictated on Electronically Signed By: cT Davis MD Electronically Signed Date/Time: 03/23/2023 6:19 AM EDT Normal [facility] XR Chest Single viewon 03-23 [facility] Radiology Study observation (narrative) [facility] jonny BASIC METABOLIC PANELon 02-23 Anion gap [Moles/Vol] 10 mmol/L Normal 3-13 [facility] Comment on above: Performed By: #### L [id number], [id number] #### Mulcher Operator: TONI NAVA ([id number]) [facility] [address] [place] [address] Calcium [Mass/Vol] 8.1 mg/dL Low 8.4-10.4 [facility] Comment on above: Performed By: #### L [id number], [id number] #### Mulcher Operator: TONI NAVA ([id number]) [facility] [address] [place] [address] Chloride [Moles/Vol] 111 mmol/L High 98-107 [facility] Comment on above: Performed By: #### L [id number], [id number] #### Mulcher Operator: TONI NAVA ([id number]) [facility]) [address] [place] [address] CO2 [Moles/Vol] 19 mmol/L Low 22-30 [facility] Comment on above: Performed By: #### L [id number], [id number] #### Mulcher Operator: TONI NAVA ([id number]) [facility] ([facility]) [address] [place] [address] Creatinine [Mass/Vol] 1.32 mg/dL High 0.66-1.25 [facility] Comment on above: Performed By: #### L [id number], [id number] #### Mulcher Operator: TONI NAVA ([id number]) [facility] ([facility]) [address] [place] [address] GLOMERULAR FILTRATION RATE ML/MIN/1.73 SQ M.PREDICTED 58.4 mL/min/1.73m*2 Low >60.0 [facility] Comment on above: Result Comment: Calc ulation based on the Chronic Kidney Disease Epidemiology Collaboration (CKD-EPI) equation refit without adjustment for race Performed By: #### L [id number], [id number] #### Mulcher Operator: TONI NAVA ([id number]) [facility]) [address] [place] [address] [place] Glucose [Mass/Vol] 142 mg/dL High 70-100 [facility] Comment on above: Performed By: #### L [id number], [id number] #### Mulcher Operator: TONI [id number]) [facility]) [address] [place] [address] Potassium [Moles/Vol] 4.7 mmol/L Normal 3.5-5.1 [facility] Comment on above: Performed By: #### L [id number], [id number] #### Mulcher Operator: TONI [id number]) [facility]) [address] [place] [address] Sodium [Moles/Vol] 140 mmol/L Normal 135-145 [facility] Comment on above: Performed By: #### L AB15, [id number] #### Mulcher Operator: TONI NAVA ([id number]) [facility]) [address] [place] [address] Urea nitrogen [Mass/Vol] 20 mg/dL Normal 9-20 [facility] Comment on above: Performed By: #### L AB15, [id number] #### Mulcher Operator: TONI NAVA ([id number]) [facility] ([facility]) [address] [place] [address] Basic metabolic 1998 panelon 03-22-2023 Anion gap [Moles/Vol] 10 mmol/L 3 - 13 mmol/L [facility] Calcium [Mass/Vol] 8.1 mg/dL Low 8.4 - 10. 4 mg/dL [facility] Chloride [Moles/Vol] 111 mmol/L High 98 - 10 7 mmol/L [facility] CO2 [Moles/Vol] 19 mmol/L Low 22 - 30 mmol/L [facility] Creatinine [Mass/Vol] 1.32 mg/dL High 0.66 - 1.25 mg/dL [facility] GFR/1.73 sq M.predicted MDRD (S/P/Bld) [Vol rate/Area] 58.4 mL/min/{1.73_m2} Low - PINF [facility] Glucose [Mass/Vol] 142 mg/dL High 70 - 100 mg/dL [facility] Interpretation and review of laboratory results Abnormal [facility] Potassium [Moles/Vol] 4.7 mmol/L 3.5 - 5.1 mmol/L [facility] Sodium [Moles/Vol] 140 mmol/L 135 - 145 mmol/L [facility] Urea nitrogen [Mass/Vol] 20 mg/dL 9 - 20 mg/d L [facility] CALCIUM, IONIZEDon 3 CALCIUM IONIZED 4.30 mg/dL Normal 4.30-5.20 [facility] Comment on above: Order Comment: Obtai n PRN and check ionized Ca level if serum Ca level less than 8.0 Performed By: #### L AB54 #### Mulcher Operator: TONI NAVA ([id number]) [facility] ([facility]) [address] [place] [address] PH, IONIZED CALCIUM 7.37 Normal 7.31-7.46 [facility] Comment on above: Order Comment: Obtai n PRN and check ionized Ca level if serum Ca level less than 8.0 Performed By: #### L AB54 #### Mulcher Operator: TONI NAVA ([id number]) [facility] ([facility]) [address] [place] [address] [place] 03-22-2023 [place] Care Managment Initial Assessment Date: 03/22/2023 Patient Name: Robert Lipscomb : 1955 Patient Information Source of Information: Patient Cognition/Language: WFL - Within Functional Limits Permission given to speak with patient bank representative/careg iver as indicated: Confirmation of Payer with patient/family: Yes Payer Name: Medicare A&B MMO : No Confirmation of Primary Care Physician: Confirmed PCP Name: Dr. Rodriguez Seen in last 2 years?: Yes Primary Caregiver: Self If assistance needed, confirmed caregiver ready, willing and able to care for patient at discharge: Confirmed with: Living Arrangements Current Residence: House Number of Floors 1 Number of Entry Steps: 2 Bed/Bath Levels: Both first floor Facility: Facility Name: Plan to Return: Lives with: Spouse/significant other Support Systems: Spouse/significant other, Children, Family members Activities of Daily Living Ambulation: Independent Bathing/Dressing: Independent Elimination/Continen ce/Toileting: Independent Feeding: Independent Who Assists with Activities of Daily Living: Instrumental Activities of Daily Living Prescription Coverage: Yes Pharmacy Used: [facility] Medication Management: Independent Transportation/Shopp ing: Independent Transportation Mode: Car Needs Assistance with Transportation at Discharge: No Meal Preparation: Independent Laundry/Cleaning: Independent Finances/Bill Paying: Independent (can do but pays bills) Communication: Independent Types of Care Services/Equipment Utilized Care Services: Dialysis Type: Durable Medical Equipment: Other (Comment) (walking stick for longer distances) Patient's Goal/Discharge Plan Patient expects to be discharged to: home Discharge Planning Actions: Continue to follow Patient's Choice Rights and [employer] and Collaborative Relationships Disclosed as Indicated for Post-Acute Care: Interdisciplinary Team Engagement: Home Health Care, PT/OT Social Work Referral for: Additional Information: Patient admitted to [facility] s/p CABG x 3 POD # 1. Spoke with patient at bedside, introduced self and role. Patient from home with , is independent, has PCP and prescription coverage, will have a ride home and will task [place] to follow for home care post op. Estrella Aguilar RN Normal [facility] CBC (HEMOGRAM)on 03-22-2023 Erythrocyte distribution width (RBC) [Ratio] 14.1 % Normal 11.5-14.5 [facility] Comment on above: Performed By: #### L [id number] ####Mulcher Operator: TONI NAVA ([id number])[address] ERYTHROCYTE MEAN CORPUSCULAR HEMOGLOBIN CONCENTRATION (G/DL) BY AUTOMATED 33.1 % Normal 32.0-36.0 [facility] Comment on above: Performed By: #### L [id number] ####Mulcher Operator: TONI NAVA ([id number])[address] Hematocrit (Bld) [Volume fraction] 31.5 % Low 40.0-52.0 [facility] Comment on above: Performed By: #### L [id number] ####Mulcher Operator: TONI NAVA ([id number])[address] Hemoglobin (Bld) [Mass/Vol] 10.4 g/dL Low 13.0-18.0 [facility] Comment on above: Performed By: #### L [id number] ####Mulcher Operator: TONI NAVA ([id number])[address] MCH (RBC) [Entitic mass] 28.4 pg Normal 26.0-34.0 [facility] Comment on above: Performed By: #### L [id number] ####Mulcher Operator: TONI NAVA ([id number])[facility] ([facility])[address] [place] [address] MCV (RBC) [Entitic vol] 85.9 fL Normal 80.0-98.0 [facility] Comment on above: Performed By: #### L [id number] ####Mulcher Operator: TONI NAVA ([id number])[facility] ([facility])[address] [place] [address] Platelet mean volume (Bld) [Entitic vol] 8.5 fL Normal 7.4-12.4 [facility] Comment on above: Performed By: #### L [id number] ####Mulcher Operator: TONI NAVA ([id number])[facility] ([facility])[address] [place] [address] PLATELETS (10*3/UL) IN BLOOD AUTOMATED COUNT 163 10*3/uL Normal 140-440 [facility] Comment on above: Performed By: #### L [id number] ####Mulcher Operator: TONI NAVA ([id number])[facility] ([facility])[address] [place] [address] RBC (Bld) [#/Vol] 3.67 10*6/uL Low 4.40-5.90 [facility] Comment on above: Performed By: #### L [id number] ####Mulcher Operator: TONI NAVA ([id number])[facility] ([facility])[address] [place] [address] WBC (Bld) [#/Vol] 12.7 10*3/uL High 3.6-10.7 [facility] Comment on above: Performed By: #### L [id number] ####Mulcher Operator: TONI NAVA ([id number])[facility] ([facility])[address] [place] [address] CBC panel Auto (Bld)Ordered By: Yogi Waite on 03-22-2023 Erythrocyte distribution width (RBC) [Ratio] 14.1 % 11.5 - 14.5 % [facility] Hematocrit (Bld) [Volume fraction] 31.5 % Low 40.0 - 52.0 % [facility] Hemoglobin (Bld) [Mass/Vol] 10.4 g/dL Low 13.0 - 18.0 g/dL [facility] Interpretation and review of laboratory results Abnormal [facility] MCH (RBC) [Entitic mass] 28.4 pg 26. 0 - 34.0 pg [facility] MCHC (RBC) [Mass/Vol] 33.1 % 32.0 - 36.0 % [facility] MCV (RBC) [Entitic vol] 85.9 fL 80.0 - 98.0 fL [facility] Platelet mean volume (Bld) [Entitic vol] 8.5 fL 7.4 - 12.4 fL [facility] Platelets (Bld) [#/Vol] 163 10*3/uL 140 - 440 10*3/uL [facility] RBC (Bld) [#/Vol] 3.67 10*6/uL Low 4.40 - 5.9 0 10*6/uL [facility] WBC (Bld) [#/Vol] 12.7 10*3/uL High 3.6 - 10.7 10*3/uL [facility] Calcium.ionized [Moles/Vol]o n 03-22-2023 Calcium.ionized (Bld) [Moles/Vol] 4.30 mg/dL 4.30 - 5.20 mg/dL [facility] Interpretation and review of laboratory results Normal [facility] PH, IONIZED CALCIUM 7.37 7.31 - 7.46 [facility] ECG 12-LEADon 03-22-2023 ECG 12-LEAD IMPRESSION: Sinus rhythm Right bundle branch block Probable inferior infarct, age indeterminate Electronically Signed On 03-22-2023 14:46:17 EDT by Heidy Albert [facility] ECG 12-LEAD IMPRESSION: Sinus rhythm Right bundle branch block Electronically Signed On 03-22-2023 13:51:31 EDT by Heidy Albert [facility] Laboratory - Chemistry and C hemistry - challengeon 03-22-2023 Glucose [Mass/Vol] 185 mg/dL High 70 - 100 mg/dL [facility] Glucose [Mass/Vol] 204 mg/dL High 70 - 100 mg/dL [facility] Glucose [Mass/Vol] 234 mg/dL High 70 - 100 mg/dL [facility] Glucose [Mass/Vol] 251 mg/dL High 70 - 100 mg/dL [facility] Glucose [Mass/Vol] 204 mg/dL High 70 - 100 mg/dL [facility] Glucose [Mass/Vol] 247 mg/dL High 70 - 100 mg/dL [facility] Glucose [Mass/Vol] 302 mg/dL High 70 - 100 mg/dL [facility] Glucose [Mass/Vol] 282 mg/dL High 70 - 100 mg/dL [facility] Glucose [Mass/Vol] 202 mg/dL High 70 - 100 mg/dL [facility] Glucose [Mass/Vol] 121 mg/dL High 70 - 100 mg/dL [facility] Glucose [Mass/Vol] 111 mg/dL High 70 - 100 mg/dL [facility] Glucose [Mass/Vol] 108 mg/dL High 70 - 100 mg/dL [facility] Glucose [Mass/Vol] 119 mg/dL High 70 - 100 mg/dL [facility] Glucose [Mass/Vol] 128 mg/dL High 70 - 100 mg/dL [facility] Glucose [Mass/Vol] 133 mg/dL High 70 - 100 mg/dL [facility] Glucose [Mass/Vol] 139 mg/dL High 70 - 100 mg/dL [facility] Glucose [Mass/Vol] 151 mg/dL High 70 - 100 mg/dL [facility] Glucose [Mass/Vol] 157 mg/dL High 70 - 100 mg/dL [facility] Magnesium [Mass/Vol] 2.2 mg/dL 1.6 - 2 .3 mg/dL [facility] Glucose [Mass/Vol] 168 mg/dL High 70 - 100 mg/dL [facility] Glucose [Mass/Vol] 167 mg/dL High 70 - 100 mg/dL [facility] Glucose [Mass/Vol] 137 mg/dL High 70 - 100 mg/dL [facility] Laboratory - Coagulationon 0 03-22-2023 aPTT Coag (PPP) [Time] 31.1 s High 20.0 - 30.5 s [facility] INR Coag (PPP) [Relative time] 1.2 {INR} High 0.9 - 1.1 [facility] PT Coag (Bld) [Time] 12.4 s High 9.0 - 12.[address] [facility] MAGNESIUMon 03-22-2023 Magnesium [Mass/Vol] 2.2 mg/dL Normal 1.6-2.3 [facility] Comment on above: Performed By: #### L AB15, [id number] #### Mulcher Operator: TONI NAVA ([id number]) [facility] ([facility]) [address] [place] [address] Magnesium [Mass/Vol]on 03-22 Interpretation and review of laboratory results Normal [facility] No Panel Informationon 03-22 Interpretation and review of laboratory results Abnormal [facility] Interpretation and review of laboratory results Abnormal [facility] Interpretation and review of laboratory results Abnormal [facility] Interpretation and review of laboratory results Abnormal [facility] Interpretation and review of laboratory results Abnormal [facility] Interpretation and review of laboratory results Abnormal [facility] Interpretation and review of laboratory results Abnormal [facility] Interpretation and review of laboratory results Abnormal [facility] P [place] 44 degrees [facility] ND Interval 171 ms [facility] QRS [place] -30 degrees [facility] QRSD Interval 157 ms [facility] QT Interval 376 ms [facility] QTC Interval 431 ms [facility] T Wave [place] -33 degrees [facility] Interpretation and review of laboratory results Abnormal [facility] Interpretation and review of laboratory results Abnormal [facility] Interpretation and review of laboratory results Abnormal [facility] Interpretation and review of laboratory results Abnormal [facility] Interpretation and review of laboratory results Abnormal [facility] Interpretation and review of laboratory results Abnormal [facility] Interpretation and review of laboratory results Abnormal [facility] Interpretation and review of laboratory results Abnormal [facility] Interpretation and review of laboratory results Abnormal [facility] Interpretation and review of laboratory results Abnormal [facility] Interpretation and review of laboratory results Abnormal [facility] Interpretation and review of laboratory results Abnormal [facility] Interpretation and review of laboratory results Abnormal [facility] No Panel InformationOrdered By: Heidy Albert on 03-22-2023 P [place] 46 degrees [facility] [employer] Work Phone: [phone] ND Interval 193 ms [facility] Work Phone: QRS [place] -40 degrees [facility] [employer] Work Phone: QRSD Interval 166 ms [facility] [employer] Work Phone: QT Interval 418 ms [facility] Work Phone: [phone] QTC Interval 498 ms [facility] Work Phone: T Wave [place] -25 degrees [facility] Work Phone: [facility] Work Phone: [phone] PROTIME AND APTTon 3 aPTT Coag (Bld) [Time] 31.1 s High 20.0-30.5 [facility] Comment on above: Performed By: #### L [id number] #### Mulcher Operator: TONI NAVA ([id number]) [facility] [employer]) [address] [place] [address] INR Coag (PPP) [Relative time] 1.2 {INR} High 0.9-1.1 [facility] Comment on above: Result Comment: Raúl mmended Anticoagulant Therapy: SEE BELOW ----- INR of 2.0 - 3.0 : - Prophylaxis of Venous Thrombosis (high-risk surgery) - Treatment of Venous Thrombosis - Treatment of Pulmonary Embolism (Includes tissue heart valves, Acute Myocardial Infarction to prevent systemic embolism, Valvular Heart Disease, and Atrial Fibrillation) ----- INR of 2.5 - 3.5 : - Mechanical Prosthetic Valves (high risk) - If oral anticoagulant therapy is used to prevent Myocardial Infarction Performed By: #### L [id number] #### Mulcher Operator: TONI NAVA ([id number]) [facility] [employer] [address] [place] [address] PT Coag (PPP) [Time] 12.4 s High 9.0-12.0 [facility] Comment on above: Performed By: #### L [id number] #### Mulcher Operator: TONI NAVA ([id number]) [facility] ([facility]) [address] [place] [address] Progress Noteon 03-22-2023 Progress Note Physical Therapy Facility/Department: [facility] Initial Evaluation NAME: Shane Lipscomb : 1955 Date of Service: 03/22/2023 Discharge Recommendations: Home with Home health PT PT Equipment Recommendations Equipment Needed: No Other: tbd Assessment Requires PT Follow-Up: Yes Assessment: 67 y.o. male admitted to [facility] s/p CABG x3. He was Min - Mod A for bed mobility, Min A for transfers, and CGA - SBA for ambulation with the Nezzie. mainly limited d/t fatigue and pain. demo good tolerance to session. Anticipating pt will progress to home with assistance PRN at discharge. Performance Deficits/Impairments : Decreased functional mobility , Decreased ADL status, Decreased ROM, Decreased strength, Decreased balance, Decreased endurance Decision Making: Medium Complexity Activity Tolerance Activity Tolerance: Patient limited by pain, Patient limited by fatigue Patient Diagnosis(es): The primary encounter diagnosis was CAD in [place] artery. Diagnoses of Aneurysm of ascending aorta without rupture (HCC) and Coronary atherosclerosis due to calcified coronary lesion (CODE) were also pertinent to this visit. has a past medical history of Anemia, Arthritis, Coronary artery disease, DM (diabetes mellitus) (HCC), History of transfusion, HTN (hypertension), Hyperlipidemia, RBBB, and Testicular cancer (HCC). has a past surgical history that includes lap,inguinal hernia repr,initial (historical); Colonoscopy; Appendectomy; Coronary stent placement (2004); Tonsillectomy; and Adenoidectomy. Restrictions Restrictions/Precaut ions Restrictions/Precaut ions: General Precautions, Fall Risk Required Braces or Orthoses?: No Position Activity Restriction Sternal Precautions: No Pushing, No Pulling, 10# Lifting Restrictions Other position/activity restrictions: PIV, tele, chest tube, meyer Vision/Hearing Vision: Within Functional Limits Hearing: Functional/adequate for paticipation in therapy Cognition/Orientatio n Overall Cognitive Status: WFL Overall Orientation Status: Within Normal Limits Subjective General Chart Reviewed: Yes Patient Assessed for Rehabilitation Services: Yes Response To Previous Treatment: Not applicable Family / Caregiver Present: Yes () Diagnosis: CAD, s/p CABG x3 03/21 Follows Commands: Within Functional Limits Subjective Subjective: pt supine in bed; agreeable to PT session. Cleared by nursing. Patient Stated Goal: to feel better Social/Functional History Social/Functional History Lives With: Spouse Type of Home: House Home Layout: One level Home Access: Stairs to enter with rails Entrance Stairs - Number of Steps: 2 Home Equipment: (walking stick) ADL Assistance: Independent Homemaking Assistance: Independent Homemaking Responsibilities: Yes Ambulation Assistance: Independent Transfer Assistance: Independent Objective AROM RLE (degrees) RLE AROM: WFL AROM LLE (degrees) LLE AROM : WFL Strength RLE Comment: 3+/5 Strength LLE Comment: 3+/5 Sensation Overall Sensation Status: Intact Bed mobility Supine to Sit: Minimal assistance Sit to Supine: Moderate assistance Scooting: Minimal assistance Comment: HOB elevated, use of bed rails, trunk assist to sitting, BLE assist to supine. Transfers Sit to Stand: Minimal Assistance Stand to sit: Contact guard assistance Comment: EOB x1. Cues for holding pillow to chest, pt requesting to rest on Nezzie stating he was maintaining his precautions Ambulation Ambulation: Yes Ambulation 1 Surface 1: Level tile Device 1: (Nezzie) Assistance 1: Contact guard, Standby assistance Quality of Gait Comment 1: initially CGA, progressed to SBA, reliance on Nezzie. Multple standing rest breaks Distance (ft) 1: 300' Comments 1: HR elevated to 103 BPM with quick resolve to low 90s. SpO2 maintained Balance Posture: Good Sitting - Static: Good Sitting - Dynamic: Good Standing - Static: Good, - Standing - Dynamic: Good, - Other exercises Other exercises?: Yes Other exercises 1: P&C therex x5 each. (No handouts available so none provided) Other exercises 2: IS use x5 Plan Times per Week: 5-7x Plan Weeks: 2 wks Current Treatment Recommendations: Strengthening, Balance Training, Gait Training, Stair training, Functional Mobility Training, Transfer Training, ADL/Self-care Training, IADL Training, Endurance Training, Equipment Evaluation, Education, & procurement, Patient/Caregiver Education & Training, Safety Education & Training, Home Exercise Program Safety Safety Devices Safety Devices in Place: Yes Type of Devices: All fall risk precautions in place, Call light within reach, Gait belt, Left in bed, Nurse notified Restraints Restraints Initially in Place: No AM-PAC Score AM-PAC Inpatient Mobility Raw Score (No Stairs) : 15 Goals Encounter Problems Encounter Problems (Active) Cardiac Patient will perform bed (more content not included)... Normal [facility] Progress Note Attestation signed by Willem Mayo MD at 03/22/2023 11:46 AM I have personally performed a face to face diagnostic evaluation on this patient. 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 My findings are as follows: Pt extubated Insulin drip rate 4 units/hr Pt reported that he was diagnosed with diabetes more than years ago He takes lantus 70 units in AM and 50 units at bedtime and prandin. He is not sure about victoza Vitals: BP (!) 108/43 (BP Location: Left arm, Patient Position: Lying) Pulse 78 Temp 37.3 ?C (99.1 ?F) (Core) Resp (!) 28 Ht 5' 9 (1.753 m) Wt 295 lb 6.7 oz (134 kg) SpO2 95% PF 55 L/min BMI 43.63 kg/m? Respiratory: No respiratory distress, clean surgical scar Cardiovascular System: No lower extremity edema Abdomen: soft, lax, non-tender, obese A/P Type 2 DM with with hyperglycemia with intermodal customer service insulin use S/p CABG Obesity Body mass index is 44.3 kg/m?. Continue insulin drip BG Q 1 hour per protocol Will switch insulin drip to sc insulin in 48 hours. In future pt will benefit from SGLT-2 Inhibitor and CGM. Old records including available PCP, ED notes and or other specialists notes are reviewed. LABs and/or imaging are reviewed as detailed in the resident's/REMOTE MEDICAL CODER/DIRECTOR OF ADVERTISING SALES's note I spent 20 minutes with the pt which involved in coordination of care, medical evaluation, review of records, and/or counseling of the pt regarding his/her condition/disease state/prognosis on the date of this note. Department of Internal Medicine Division of Endocrinology, Diabetes, & Metabolism Endocrinology Note Patient Name: Robert Lipscomb : 1955 AGE: 67 y.o. Room[facility]Bed: [facility] A Admission Date: 03/21/2023 Visit Date: 03/22/2023 Reason for Endocrine Consult: post op heart Provider/Team Requesting Consult: cts PCP: TEMO RODRIGUEZ Outpt Gluing Crew Leader: No ASSESSMENT: Cabgx3 Dm2 with hyperglycemia and usp insulin Stress hyperglycemia Cad/htn/hld Obesity Body mass index is 43.63 kg/m?. PLAN: Cont on insulin gtt per protocol ICU goal <180 GMF goal <150 POCT BG q1 Hypoglycemia per protocol Carb controlled diet ANTICIPATED ENDOCRINE HOME GOING RECOMMENDATIONS: Optimized for Discharge from Endocrine standpoint: No Home Going Endocrine Rx Recommendations-- Tbd Would benefit from starting on sglt2 jardiance or farxiga Outpt Follow Up-- pcp SUBJECTIVE/HPI: CHIEF COMPLAINT: No chief complaint on file. Cabgx3 Will clarify DM2 history and medications once extubated Bgl below Resting in bed Vss Insulin gtt 4/hr No pressors Extubated-awake alert 02 nc Slowed responses Did clarify home meds- he is unsure of victoza dose at home Per dispense report it shows 1.8 daily Checks with glucometer once a day at home usually in the 100s Sees his PCP for DM at home Spoke to nursing Type of DM: 2 Onset of DM: over 10 years per patient Home DM Medication Regimen: per chart lantus pens 70 am and 50 pm, victoza 1.8 mg daily ? , prandin 4 mg tid meals po DM control (last A1c/glucose data): Lab Results Component Value Date HGBA1C 7.9 (H) 03/11/2023 Glucose Date/Time Value Ref Range Status 03/22/2023 10:34 AM 111 (H) 70 - 100 mg/dL Final 03/22/2023 09:31 AM 108 (H) 70 - 100 mg/dL Final 03/22/2023 08:05 AM 119 (H) 70 - 100 mg/dL Final 03/22/2023 07:09 AM 128 (H) 70 - 100 mg/dL Final 03/22/2023 06:01 AM 133 (H) 70 - 100 mg/dL Final 03/22/2023 05:04 AM 139 (H) 70 - 100 mg/dL Final Review of Systems ROS negative except for those mentioned in HPI. OBJECTIVE: Vitals: 03/22/23 0630 03/22/23 0645 03/22/23 0700 03/22/23 0923 BP: BP Location: Patient Position: Pulse: 82 79 78 Resp: Temp: TempSrc: SpO2: 97% 95% 95% Weight: Height: 5' 9 (1.753 m) PF: Physical Exam Vitals and nursing note reviewed. Constitutional: General: He is awake. He is not in acute distress. Appearance: He is ill-appearing. He is not diaphoretic. HENT: Head: Normocephalic. Mouth/Throat: Mouth: Mucous membranes are moist. Cardiovascular: Rate and Rhythm: Normal rate. Pulmonary: Effort: Pulmonary effort is normal. Abdominal: Palpations: Abdomen is soft. Tenderness: There is no abdominal tenderness. Skin: General: Skin is warm and dry. Comments: Intact incision Neurological: Mental Status: He is alert and oriented to person, place, and time. Mental status is at baseline. Psychiatric: Behavior: Behavior is slowed. 24 hour intake/output: Intake/Output Summary (Last 24 hours) at 03/22/2023 1050 Last data filed at 03/22/2023 0700 Gross per 24 hour Intake 5108.82 ml Output 2504 ml Net 2 (more content not included)... Normal [facility] Progress Note Attestation signed by Richardson Donaldson DO at 03/22/2023 10:28 AM I have personally performed a [id number] diagnostic evaluation on this patient on date of service 03/22/23 . History, labs, imaging studies, and electronic medical record have been reviewed by me. This note documented by the []supervisor dimension warehouse [x]MARIANO reflects my history, exam, and medical decision making. I have reviewed and agree with the care plan. Changes were made in the orders as necessary. ROS documentation was reviewed and negative unless otherwise stated in HPI. Additional pertinent interval history, ROS, and physical exam findings: Post op 03/21 CABG, recovering well. Remains on small dose levo but plan to dc today. His pain is well controlled, and he has no complaints this AM Assessment: S/p CABG x3 Htn/hld DM Plan: Insulin infusion per endo Pain control adequate, PRN oxycodone x2, no morphine needed Extubated 03/21 no complications Small pleural effusion R side, not causing respiratory issues. Will POCUS tomorrow for possible thora OOB as tolerated Total critical care time for this patient with life-threatening unstable organ failure, including direct patient contact, management of life support systems, review of data including imaging and labs, and discussions with other team members and physicians at least 35 so far today, excluding procedures. Cardiothoracic Surgery/CCM Progress Note PATIENT NAME: Robert Lipscomb DATE: 03/22/23 HPI: Mr. Robert Lipscomb is a 67 year old male patient with a PMHx that includes CAD s/p SUZETTE tp RCA (2004), RBBB, HTN, HLD, anemia and diabetes (A1c 7.9). He was referred to CT Surgery by Dr. Armendariz. Patient had underwent coronary cath and was found to have severe multivessel CAD. He was seen in the OP setting by Dr. Childress. He consented and was scheduled for CABG on 03/21/23. Surgery/Procedure: 03/21/23: Dr. Childress- CABGx3 (PIERSON-LAD, SVG-OM, SVG-RPDA), LEV Interval History: 03/22/23, POD# 01: Afebrile, NSR on tele, BP stable on minimal levophed dose, on 2L NC and PAP device overnight. Lying in bed, awake and alert. Pain tolerable. No major complaints. Current IV Drips: Levophed: 0.02mcg/kg/min Insulin: 5u/hr A-line: Arterial Line BP 1: 108/43 Invasive Hemodynamic Monitoring Hemodynamic Monitoring Additional Assessment: Yes Blood Temperature: 37.8 ?C (100 ?F) PAP: 41/14 PAP (Mean): 26 mmHg CVP (mmHg): 11 mmHg CO (L/min): 7.05 L/min CI (L/min/m2): 2.88 L/min/m2 SVR (dyne*sec)/cm5: 590 (dyne*sec)/cm5 [place] Waveform: Appropriate waveforms, Rezeroed,o Review of Systems Constitutional: Positive for fatigue. Negative for chills, diaphoresis and fever. Respiratory: Negative for cough, shortness of breath and wheezing. Cardiovascular: Positive for leg swelling. Negative for chest pain and palpitations. Gastrointestinal: Negative for abdominal distention, abdominal pain, nausea and vomiting. Neurological: Negative for dizziness, syncope and light-headedness. Objective: CT output cc/24hrs: 530 UO cc/24hrs: 1,560 Vitals: BP: (!) 108/43, MAP (mmHg): 63, BP Method: Arterial line Heart Rate: 80 Resp: 23 Temp: 37.3 ?C (99.1 ?F), Temp Source: Core BMI (Calculated): 43.61 BMP: Recent Labs 03/21/23 1130 03/22/23 0132 NA 141 140 K 4.2 4.7 CL 112* 111* CO2 22 19* BUN 19 20 CREATININE 1.29* 1.32* CALCIUM 8.1* 8.1* MG 3.1* 2.2 PHOS 3.2 -- CBC: Recent Labs 03/21/23 1130 03/21/23 1133 03/22/23 0132 WBC 14.6* -- 12.7* HGB 9.4* 10.0 10.4* HCT 28.6* -- 31.5* PLT 134* -- 163 MCV 86.1 -- 85.9 RDW 13.9 -- 14.1 INR: Recent Labs 03/21/23 1130 03/22/23 0132 INR 1.4* 1.2* Physical Exam Vitals reviewed. Constitutional: General: He is not in acute distress. Appearance: He is not ill-appearing or diaphoretic. Neck: Comments: Central line and [place] in place. Cardiovascular: Rate and Rhythm: Normal rate and regular rhythm. Pulses: Normal pulses. Pulmonary: Effort: Pulmonary effort is normal. Breath sounds: No wheezing, rhonchi or rales. Comments: Diminished throughout. R>L. On NC. Abdominal: General: There is no distension. Palpations: Abdomen is soft. Tenderness: There is no abdominal tenderness. Genitourinary: Comments: Meyer. Musculoskeletal: General: Swelling present. Skin: General: Skin is warm and dry. Capillary Refill: Capillary refill takes less than 2 seconds. Findings: Bruising present. Comments: MSI well approximated. No redness, warmth or drainage noted. Neurological: General: No focal deficit present. Mental Status: He is alert and oriented to person, place, and time. Mental status is at baseline. Psychiatric: Mood (more content not included)... Normal [employer] [facility] Vital signsOrdered By: Cary Albert on 03-22-2023 Heart rate 85 /min bpm [employer] Work Phone: Vital signson 03-22-2023 Heart rate 79 /min bpm [employer] XR CHEST 1 VIEWon 03-22-2023 XR CHEST 1 VIEW Patient Name: ROBERT LIPSCOMB : 1955 Exam Date/Time: 03/22/2023 05:19 Procedure: XR CHEST 1 VIEW Ordering Provider: JACINTO KYLE Reason For Exam: Shortness of breath CHEST - PORTABLE: CLINICAL INDICATION: Respiratory distress for follow up TECHNIQUE: Portable AP COMPARISON: One day ago FINDINGS: Life support devices: Right [place] catheter with its tip in the ventricular outflow tract. Left chest tube Heart/Mediastinum: Unchanged Lungs/Pleura: Atelectasis at the bases. Blunting of the costophrenic angles is likely pleural fluid. IMPRESSION: Left chest tube. Atelectasis at the bases and probable pleural fluid. Report Dictated on Electronically Signed By: Tc Davis MD Electronically Signed Date/Time: 03/22/2023 5:57 AM EDT Normal [facility] XR Chest Single viewon 03-22 [facility] Study observation (narrative) [facility] XR Chest Single viewOrdered By: Tc Davis on 03-22-2023 [facility] Work Phone: BASIC METABOLIC PANELon 02-23 Anion gap [Moles/Vol] 8 mmol/L Normal 3-13 [facility] Comment on above: Performed By: #### L [id number], [id number], [id number] ####Mulcher Operator: TONI NAVA ([id number])[facility] ([facility])[address] [place] [address] Calcium [Mass/Vol] 8.1 mg/dL Low 8.4-10.4 [facility] Comment on above: Performed By: #### L AB103, [id number], LAB15 ####Mulcher Operator: TONI NAVA ([id number])[facility] ([facility])[address] [place] [address] [place] Chloride [Moles/Vol] 112 mmol/L High 98-107 [facility] Comment on above: Performed By: #### L AB103, [id number], LAB15 ####Mulcher Operator: TONI NAVA ([id number])[facility] ([facility])[address] [place] [address] [place] CO2 [Moles/Vol] 22 mmol/L Normal 22-30 [facility] Comment on above: Performed By: #### L AB103, [id number], LAB15 ####Mulcher Operator: TONI NAVA ([id number])[facility] ([facility])[address] [place] [address] Creatinine [Mass/Vol] 1.29 mg/dL High 0.66-1.25 [facility] Comment on above: Performed By: #### L AB103, [id number], LAB15 ####Mulcher Operator: TONI NAVA ([id number])[facility] ([facility])[address] [place] [address] [place] GLOMERULAR FILTRATION RATE ML/MIN/1.73 SQ M.PREDICTED 60.0 mL/min/1.73m*2 Low >60.0 [facility] Comment on above: Result Comment: Calc ulation based on the Chronic Kidney Disease Epidemiology Collaboration (CKD-EPI) equation refit without adjustment for race Performed By: #### L AB103, [id number], LAB15 ####Mulcher Operator: TONI NAVA ([id number])[facility] ([facility])[address] [place] [address] [place] Glucose [Mass/Vol] 155 mg/dL High 70-100 [facility] Comment on above: Performed By: #### L AB103, [id number], LAB15 ####Mulcher Operator: TONI NAVA ([id number])[facility] ([facility])[address] [place] [address] [place] Potassium [Moles/Vol] 4.2 mmol/L Normal 3.5-5.1 [facility] Comment on above: Performed By: #### L AB103, [id number], LAB15 ####Mulcher Operator: TONI NAVA ([id number])[facility])[address] [place] [address] [place] Sodium [Moles/Vol] 141 mmol/L Normal 135-145 [facility] Comment on above: Performed By: #### L AB103, [id number], LAB15 ####Mulcher Operator: TONI NAVA ([id number])[facility] ([facility])[address] [place] [address] Urea nitrogen [Mass/Vol] 19 mg/dL Normal 9-20 [facility] Comment on above: Performed By: #### L AB103, [id number], LAB15 ####Mulcher Operator: TONI NAVA ([id number])[facility] [place] [address] BLOOD GAS ARTERIALon 023 Base excess Calc (Bld) [Moles/Vol] -4.3000 mmol/L Low -3.0-3.0 [facility] Comment on above: Performed By: #### L AB15, [id number] #### Mulcher Operator: TONI NAVA ([id number]) [facility] ([facility]) [address] [place] [address] CARBON DIOXIDE (MM HG) IN ARTERIAL BLOOD 42.4 mm Hg Normal >35.0-<45.0 [facility] Comment on above: Performed By: #### L AB15, [id number] #### Mulcher Operator: TONI NAVA ([id number]) [facility]) [address] [place] [address] [place] CO2 [Moles/Vol] 22.8 mmol/L Low 23.0-27.0 [facility] Comment on above: Performed By: #### L AB15, [id number] #### Mulcher Operator: TONI NAVA ([id number]) [facility] [address] [place] [address] [place] HCO3 (Bld) [Moles/Vol] 21.5 mmol/L Normal 21.0-25.0 [facility] Comment on above: Performed By: #### L AB15, [id number] #### Mulcher Operator: TONI NAVA ([id number]) [facility] [address] [place] [address] Hemoglobin (Bld) [Mass/Vol] 10.0 g/dL Normal Screen Only [facility] Comment on above: Performed By: #### L AB15, [id number] #### Mulcher Operator: TONI NAVA ([id number]) [facility] ([facility]) [address] [place] [address] [place] OXYGEN (MM HG) IN ARTERIAL BLOOD 312.2 mm Hg High 80.0-100.0 [facility] Comment on above: Performed By: #### L AB15, [id number] #### Mulcher Operator: TONI NAVA ([id number]) [facility] [address] [place] [address] [place] OXYGEN SATURATION (%) IN ARTERIAL BLOOD 98.6 % Normal 95.0-100.0 [facility] Comment on above: Performed By: #### L AB15, [id number] #### Mulcher Operator: TONI NAVA ([id number]) [facility] [address] [place] [address] pH (Bld) 7.323 [pH] Low 7.350-7.450 [facility] Comment on above: Performed By: #### L AB15, [id number] #### Mulcher Operator: TONI NAVA ([id number]) [facility] [address] [place] [address] SOURCE OF OXYGEN Vent Normal [facility] Comment on above: Performed By: #### L AB15, [id number] #### Mulcher Operator: TONI NAVA ([id number]) [facility] [address] [place] [address] Basic metabolic 1998 panelon 03-21-2023 Anion gap [Moles/Vol] 8 mmol/L 3 - 13 mmol/L [facility] Calcium [Mass/Vol] 8.1 mg/dL Low 8.4 - 10. 4 mg/dL [facility] Chloride [Moles/Vol] 112 mmol/L High 98 - 10 7 mmol/L [facility] CO2 [Moles/Vol] 22 mmol/L 22 - 30 mmol/L [facility] Creatinine [Mass/Vol] 1.29 mg/dL High 0.66 - 1.25 mg/dL [facility] GFR/1.73 sq M.predicted MDRD (S/P/Bld) [Vol rate/Area] 60.0 mL/min/{1.73_m2} Low - PINF [facility] Glucose [Mass/Vol] 155 mg/dL High 70 - 100 mg/dL [facility] Potassium [Moles/Vol] 4.2 mmol/L 3.5 - 5.1 mmol/L [facility] Sodium [Moles/Vol] 141 mmol/L 135 - 145 mmol/L [facility] Urea nitrogen [Mass/Vol] 19 mg/dL 9 - 20 mg/d L [facility] CALCIUM, IONIZEDon CALCIUM IONIZED 4.50 mg/dL Normal 4.30-5.20 [facility] Comment on above: Performed By: #### L AB15, [id number] #### Mulcher Operator: TONI NAVA ([id number]) [facility]) [address] [place] [address] PH, IONIZED CALCIUM 7.34 Normal 7.31-7.46 [facility] Comment on above: Performed By: #### L AB15, [id number] #### Mulcher Operator: TONI NAVA ([id number]) [facility]) [address] [place] [address] CBC (HEMOGRAM)on 03-21-2023 Erythrocyte distribution width (RBC) [Ratio] 13.9 % Normal 11.5-14.5 [facility] Comment on above: Performed By: #### L AB15, [id number] #### Mulcher Operator: TONI NAVA ([id number]) [facility]) [address] [place] [address] ERYTHROCYTE MEAN CORPUSCULAR HEMOGLOBIN CONCENTRATION (G/DL) BY AUTOMATED 32.8 % Normal 32.0-36.0 [facility] Comment on above: Performed By: #### L AB15, [id number] #### Mulcher Operator: TONI [id number]) [facility]) [address] [place] [address] Hematocrit (Bld) [Volume fraction] 28.6 % Low 40.0-52.0 [facility] Comment on above: Performed By: #### L AB15, [id number] #### Mulcher Operator: TONI [id number]) [facility] [address] [place] [address] Hemoglobin (Bld) [Mass/Vol] 9.4 g/dL Low 13.0-18.0 [facility] Comment on above: Performed By: #### L AB15, [id number] #### Mulcher Operator: TONI NAVA ([id number]) [facility]) [address] [place] [address] MCH (RBC) [Entitic mass] 28.3 pg Normal 26.0-34.0 [facility] Comment on above: Performed By: #### L AB15, [id number] #### Mulcher Operator: TONI NAVA ([id number]) [facility]) [address] [place] [address] MCV (RBC) [Entitic vol] 86.1 fL Normal 80.0-98.0 [facility] Comment on above: Performed By: #### L AB15, [id number] #### Mulcher Operator: TONI NAVA ([id number]) [facility]) [address] [place] [address] Platelet mean volume (Bld) [Entitic vol] 7.6 fL Normal 7.4-12.4 [facility] Comment on above: Performed By: #### L AB15, [id number] #### Mulcher Operator: TONI NAVA ([id number]) [facility]) [address] [place] [address] PLATELETS (10*3/UL) IN BLOOD AUTOMATED COUNT 134 10*3/uL Low 140-440 [facility] Comment on above: Performed By: #### L AB15, [id number] #### Mulcher Operator: TONI NAVA ([id number]) [facility]) [address] [place] [address] RBC (Bld) [#/Vol] 3.33 10*6/uL Low 4.40-5.90 [facility] Comment on above: Performed By: #### L AB15, [id number] #### Mulcher Operator: TONI [id number]) [facility] ([facility]) [address] WBC (Bld) [#/Vol] 14.6 10*3/uL High 3.6-10.7 [facility] Comment on above: Performed By: #### L AB15, [id number] #### Mulcher Operator: TONI NAVA ([id number]) [facility] ([facility]) [address] [place] [address] CBC panel Auto (Bld)Ordered By: James Espinosa on 03-21-2023 Erythrocyte distribution width (RBC) [Ratio] 13.9 % 11.5 - 14.5 % [facility] Hematocrit (Bld) [Volume fraction] 28.6 % Low 40.0 - 52.0 % [facility] Hemoglobin (Bld) [Mass/Vol] 9.4 g/dL Low 13.0 - 18.0 g/dL [facility] Interpretation and review of laboratory results Abnormal [facility] MCH (RBC) [Entitic mass] 28.3 pg 26. 0 - 34.0 pg [facility] MCHC (RBC) [Mass/Vol] 32.8 % 32.0 - 36.0 % [facility] MCV (RBC) [Entitic vol] 86.1 fL 80.0 - 98.0 fL [facility] Platelet mean volume (Bld) [Entitic vol] 7.6 fL 7.4 - 12.4 fL [facility] Platelets (Bld) [#/Vol] 134 10*3/uL Low 140 - 440 10*3/uL [facility] RBC (Bld) [#/Vol] 3.33 10*6/uL Low 4.40 - 5.9 0 10*6/uL [facility] WBC (Bld) [#/Vol] 14.6 10*3/uL High 3.6 - 10.7 10*3/uL [facility] Calcium.ionized [Moles/Vol]o n 03-21-2023 Calcium.ionized (Bld) [Moles/Vol] 4.50 mg/dL 4.30 - 5.20 mg/dL [facility] Interpretation and review of laboratory results Normal [facility] PH, IONIZED CALCIUM 7.34 7.31 - 7.46 [facility] Consulton 03-21-2023 Consult Attestation signed by Willem Mayo MD at 03/21/2023 2:15 PM I have personally performed a face to face diagnostic evaluation on this patient. 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 My findings are as follows: S/p CABG Insulin drip rate 3 units/hr Per chart review: pt has diabetes on basal insulin, victoza, and prandin Lab Results Component Value Date HGBA1C 7.9 (H) 03/11/2023 Vitals: BP (!) 145/63 Pulse 77 Temp 36.3 ?C (97.3 ?F) (Temporal) Resp 16 Ht 5' 9 (1.753 m) Wt 300 lb (136 kg) SpO2 97% BMI 44.30 kg/m? Constitutional: intubated Respiratory: No respiratory distress, clean surgical scar Cardiovascular System: No lower extremity edema Abdomen: soft, lax, non-tender, obese A/P Type 2 DM with with hyperglycemia with intermodal customer service insulin use S/p CABG Obesity Body mass index is 44.3 kg/m?. Continue insulin drip BG Q 1 hour per protocol Will switch insulin drip to sc insulin in 48 hours. In future pt will benefit from SGLT-2 Inhibitor and CGM. Old records including available PCP, ED notes and or other specialists notes are reviewed. LABs and/or imaging are reviewed as detailed in the resident's/REMOTE MEDICAL CODER/DIRECTOR OF ADVERTISING SALES's note Department of Internal Medicine Division of Endocrinology, Diabetes, & Metabolism Endocrinology Note Patient Name: Robert Lipscomb : 1955 AGE: 67 y.o. Room/Bed: T1-126/T1-126 A Admission Date: 03/21/2023 Visit Date: 03/21/2023 Reason for Endocrine Consult: post op heart Provider/Team Requesting Consult: cts PCP: TEMO RODRIGUEZ Outpt Gluing Crew Leader: No ASSESSMENT: Cabgx3 Dm2 with hyperglycemia and usp insulin Stress hyperglycemia Cad/htn/hld Obesity Body mass index is 44.3 kg/m?. PLAN: Cont on insulin gtt ICU goal <180 GMF goal <150 POCT BG ACHS Hypoglycemia per protocol Carb controlled diet ANTICIPATED ENDOCRINE HOME GOING RECOMMENDATIONS: Optimized for Discharge from Endocrine standpoint: No Home Going Endocrine Rx Recommendations-- Tbd Would benefit from starting on sglt2 jardiance or farxiga Outpt Follow Up-- pcp SUBJECTIVE/HPI: CHIEF COMPLAINT: No chief complaint on file. Cabgx3 Will clarify DM2 history and medications once extubated Bgl below Resting in bed Vss Remains Intubated sedated at this time Insulin gtt 4/hr On pressors Ct in place No family in room Spoke with nursing team in room Will clarify home meds once extubated Type of DM: 2 Onset of DM: not clear Home DM Medication Regimen: per chart lantus pens 70 am and 50 pm, victoza 18 mg daily, prandin 4 mg tid meals po DM control (last A1c/glucose data): Lab Results Component Value Date HGBA1C 7.9 (H) 03/11/2023 Glucose Date/Time Value Ref Range Status 03/21/2023 12:17 PM 142 (H) 70 - 100 mg/dL Final 03/21/2023 05:54 AM 181 (H) 70 - 100 mg/dL Final Review of Systems ROS negative except for those mentioned in HPI. OBJECTIVE: Vitals: 03/21/23 0551 BP: (!) 145/63 Pulse: 77 Resp: 16 Temp: 36.3 ?C (97.3 ?F) TempSrc: Temporal SpO2: 97% Weight: 300 lb (136 kg) Height: 5' 9 (1.753 m) Physical Exam Vitals and nursing note reviewed. Constitutional: General: He is not in acute distress. Appearance: He is ill-appearing. He is not diaphoretic. Interventions: He is sedated and intubated. HENT: Head: Normocephalic and atraumatic. Mouth/Throat: Mouth: Mucous membranes are moist. Cardiovascular: Rate and Rhythm: Normal rate. Pulmonary: Effort: Pulmonary effort is normal. He is intubated. Abdominal: Palpations: Abdomen is soft. Skin: General: Skin is warm and dry. Comments: Intact incision 24 hour intake/output: Intake/Output Summary (Last 24 hours) at 03/21/2023 1259 Last data filed at 03/21/2023 1224 Gross per 24 hour Intake 2902.82 ml Output 880 ml Net 2022.82 ml Diet: NPO diet Medications (as per EMR): HomeMeds: Current Outpatient Medications Medication Instructions amLODIPine (Norvasc) 5 MG tablet Daily Apoaequorin (Prevagen) 10 MG capsule No dose, route, or frequency recorded. aspirin 324 mg, Oral, Daily atenolol (Tenormin) 50 MG tablet No dose, route, or frequency recorded. chlorhexidine (Peridex) 0.12 % solution 15 mL, Mouth/Throat, Use night before and morning of surgery enalapril (Vasotec) 20 MG tablet No dose, route, or frequency recorded. insulin glargine (Lantus SoloStar) 100 UNIT/ML pen SubCUTAneous, 70 units in the morning, 50 units in the evening liraglutide (Victoza) 18 MG/3ML injection No dose, route, or frequency recorded. mupirocin (Bactroban) 2 % ointment Apply liberal amount per nostril the night before surgery and then again the (more content not included)... Normal [facility] Consult Attestation signed by Richardson Donaldson DO at 03/21/2023 5:16 PM I have personally performed a [id number] diagnostic evaluation on this patient on date of service 03/21/23 . History, labs, imaging studies, and electronic medical record have been reviewed by me. This note documented by the []supervisor dimension warehouse [x]MARIANO reflects my history, exam, and medical decision making. I have reviewed and agree with the care plan. Changes were made in the orders as necessary. ROS documentation was reviewed and negative unless otherwise stated in HPI. Additional pertinent interval history, ROS, and physical exam findings: Patient with uncomplicated procedure, was doing well and passing SBT therefore extubated without difficulty. Plan for continued supportive care Assessment: S/p CABG 03/21 CAD RBBB HTN/HLD DM Plan: Extubated with no respiratory distress Insulin per protocol Giving volume for Bps Chest tubes to suction Pain control Total critical care time for this patient with life-threatening unstable organ failure, including direct patient contact, management of life support systems, review of data including imaging and labs, and discussions with other team members and physicians at least 35 so far today, excluding procedures. [facility] Group: Critical Care Consultation Note Date: 03/21/23 PATIENT NAME: Robert Lipscomb : 1955 (67 y.o.) Reason for Consult: Critical Care & Vent Management HPI: Mr. Robert Lipscomb is a 67 year old male patient with a PMHx that includes CAD s/p SUZETTE tp RCA (2004), RBBB, HTN, HLD, anemia and diabetes (A1c 7.9). He was referred to CT Surgery by Dr. Armendariz. Patient had underwent coronary cath and was found to have severe multivessel CAD. He was seen in the OP setting by Dr. Childress. He consented and was scheduled for CABG on 03/21/23. Surgery: 03/21/23: Dr. Childress- CABGx3 (PIERSON-LAD, SVG-OM, SVG-RPDA), [facility] Interval History: 03/21/23: POD #0: Patient arrived to the unit, intubated and sedated. Surgical hand off completed below. Review of Systems Unable to perform ROS: Intubated Allergies: Amoxicillin, Amoxicillin-pot clavulanate, Atorvastatin, Metformin hcl, Other, Pollen extract, Clavulanic acid, and Metformin Past Medical History: has a past medical history of Anemia, Arthritis, Coronary artery disease, DM (diabetes mellitus) (HCC), History of transfusion, HTN (hypertension), Hyperlipidemia, RBBB, and Testicular cancer (HCC). Past Surgical History: has a past surgical history that includes lap,inguinal hernia repr,initial (historical); Colonoscopy; Appendectomy; Coronary stent placement (2004); Tonsillectomy; and Adenoidectomy. Social History: reports that he has never smoked. He has never used smokeless tobacco. He reports that he does not currently use alcohol. He reports that he does not use drugs. Family History: family history is not on file. Medications: Prior to Admission medications Medication Sig Start Date End Date Taking? Authorizing Provider amLODIPine (Norvasc) 5 MG tablet daily. 02/13/23 Yes Historical Provider, Apoaequorin (Prevagen) 10 MG capsule Yes Historical Provider, aspirin 81 MG oral suspension Take 324 mg by mouth daily. Yes Historical Provider, atenolol (Tenormin) 50 MG tablet Yes Historical Provider, chlorhexidine (Peridex) 0.12 % solution Use 15 mL in the mouth or throat. Use night before and morning of surgery Yes Historical Provider, enalapril (Vasotec) 20 MG tablet Yes Historical Provider, insulin glargine (Lantus SoloStar) 100 UNIT/ML pen Inject under the skin. 70 units in the morning, 50 units in the evening Yes Historical Provider, liraglutide (Victoza) 18 MG/3ML injection Yes Historical Provider, mupirocin (Bactroban) 2 % ointment Apply liberal amount per nostril the night before surgery and then again the morning of surgery 02/28/23 Yes Jonathan De Leon, CLINICAL PHARMACY COORDINATOR - TELECOM BILLING ANALYST repaglinide (Prandin) 2 MG tablet 4 mg in the morning and 4 mg at noon and 4 mg in the evening. Take before meals. Yes Historical Provider, rosuvastatin (Crestor) 20 MG tablet Nightly. Yes Historical Provider, nitroglycerin (Nitrostat) 0.[address] 0.4 mg under the tongue every 5 minutes as needed for chest pain. Historical Provider, Surgery Hand Off: Arrival Time in HLU: 1214 Complications/Pertin ent Events: None Last Paralytic: 932 Medications given in route: Gtts OR report Propofol: 15mcg/kg/min Insulin: 3 Amicar: 29 Current gtts upon arrival Epinephrine: Norepinephrine: Phenylephrine: Vasopressin: Nitroglycerin: Nitroprusside: Dobutamine: Milrinone: Propofol: 25mcg/kg/min Insulin: 3 Amicar: 29 (more content not included)... Normal [facility] FIBRINOGENon 03-21-2023 FIBRINOGEN 204 mg/dL Normal 200-400 [facility] Comment on above: Performed By: #### L [id number], [id number] #### Mulcher Operator: TONI NAVA ([id number]) [facility] ([facility]) [address] [place] [address] Fibrinogen Coag (PPP) [Mass/ Vol]on 03-21-2023 Interpretation and review of laboratory results Normal [facility] Laboratory - Chemistry and C hemistry - challengeon 03-21-2023 Glucose [Mass/Vol] 130 mg/dL High 70 - 100 mg/dL [facility] Glucose [Mass/Vol] 127 mg/dL High 70 - 100 mg/dL [facility] Glucose [Mass/Vol] 127 mg/dL High 70 - 100 mg/dL [facility] Glucose [Mass/Vol] 145 mg/dL High 70 - 100 mg/dL [facility] Glucose [Mass/Vol] 147 mg/dL High 70 - 100 mg/dL [facility] Glucose [Mass/Vol] 149 mg/dL High 70 - 100 mg/dL [facility] Glucose [Mass/Vol] 152 mg/dL High 70 - 100 mg/dL [facility] Glucose [Mass/Vol] 148 mg/dL High 70 - 100 mg/dL [facility] Glucose [Mass/Vol] 133 mg/dL High 70 - 100 mg/dL [facility] Glucose [Mass/Vol] 119 mg/dL High 70 - 100 mg/dL [facility] Glucose [Mass/Vol] 164 mg/dL High 70 - 100 mg/dL [facility] Magnesium [Mass/Vol] 3.1 mg/dL High 1.6 - 2 .3 mg/dL [facility] Glucose [Mass/Vol] 142 mg/dL High 70 - 100 mg/dL [facility] Glucose [Mass/Vol] 181 mg/dL High 70 - 100 mg/dL [facility] Laboratory - Chemistry and C hemistry - challengeOrdered By: Taisha Dockery on 03-21-2023 Base excess Calc (Bld) [Moles/Vol] -4.3000 mmol/L Low -3.0 - 3.0 mmol/L [facility] CO2 (Bld) [Partial pressure] 42.4 mm[Hg] - PINF [facility] CO2 [Moles/Vol] 22.8 mmol/L Low 23.0 - 27.0 mmol/L [facility] HCO3 (Bld) [Moles/Vol] 21.5 mmol/L 21.0 - 25.0 mmol/L [facility] Oxygen (Bld) [Partial pressure] 312.2 mm[Hg] High [facility] pH (Bld) 7.323 [pH] Low 7.350 - 7.450 [facility] Laboratory - Coagulationon 0 03-21-2023 aPTT Coag (PPP) [Time] 27.1 s 20.0 - 30.5 s [facility] Fibrinogen Coag (PPP) [Mass/Vol] 204 mg/dL 200 - 400 mg/dL [facility] INR Coag (PPP) [Relative time] 1.4 {INR} High 0.9 - 1.1 [facility] PT Coag (Bld) [Time] 14.3 s High 9.0 - 12.[address] [facility] Laboratory - Hematology and Cell countsOrdered By: Taisha Dockery on 03-21-2023 Hemoglobin (Bld) [Mass/Vol] 10.0 g/dL Screen Only [facility] MAGNESIUMon 03-21-2023 Magnesium [Mass/Vol] 3.1 mg/dL High 1.6-2.3 [facility] Comment on above: Performed By: #### L [id number], [id number], [id number] ####Mulcher Operator: TONI NAVA ([id number])[facility] ([address] No Panel Informationon 03-21 Interpretation and review of laboratory results Abnormal [facility] Interpretation and review of laboratory results Abnormal [facility] Interpretation and review of laboratory results Abnormal [facility] Interpretation and review of laboratory results Abnormal [facility] Interpretation and review of laboratory results Abnormal [facility] Interpretation and review of laboratory results Abnormal [facility] Interpretation and review of laboratory results Abnormal [facility] Interpretation and review of laboratory results Abnormal [facility] Interpretation and review of laboratory results Abnormal [facility] Interpretation and review of laboratory results Abnormal [facility] Interpretation and review of laboratory results Abnormal [facility] Interpretation and review of laboratory results Abnormal [facility] Interpretation and review of laboratory results Abnormal [facility] Interpretation and review of laboratory results Abnormal [facility] Interpretation and review of laboratory results Abnormal [facility] No Panel InformationOrdered By: Taisha Dockery on 03-21-2023 Interpretation and review of laboratory results Abnormal [facility] Source Of Oxygen Vent [facility] PHOSPHORUSon 03-21-2023 Phosphate [Mass/Vol] 3.2 mg/dL Normal 2.5-4.5 [facility] Comment on above: Performed By: #### L [id number], [id number], [id number] ####Mulcher Operator: TONI NAVA ([id number])[facility] ([facility])[address] [place] [address] PROTIME AND APTTon 3 aPTT Coag (Bld) [Time] 27.1 s Normal 20.0-30.5 [facility] Comment on above: Performed By: #### L [id number], [id number] #### Mulcher Operator: TONI NAVA ([id number]) [facility] ([facility]) [address] [place] [address] INR Coag (PPP) [Relative time] 1.4 {INR} High 0.9-1.1 [facility] Comment on above: Result Comment: Raúl mmended Anticoagulant Therapy: SEE BELOW ----- INR of 2.0 - 3.0 : - Prophylaxis of Venous Thrombosis (high-risk surgery) - Treatment of Venous Thrombosis - Treatment of Pulmonary Embolism (Includes tissue heart valves, Acute Myocardial Infarction to prevent systemic embolism, Valvular Heart Disease, and Atrial Fibrillation) ----- INR of 2.5 - 3.5 : - Mechanical Prosthetic Valves (high risk) - If oral anticoagulant therapy is used to prevent Myocardial Infarction Performed By: #### L [id number], [id number] #### Mulcher Operator: TONI NAVA ([id number]) [facility] ([facility]) [address] [place] [address] PT Coag (PPP) [Time] 14.3 s High 9.0-12.0 [facility] Comment on above: Performed By: #### L [id number], [id number] #### Mulcher Operator: TONI NAVA ([id number]) [facility] ([facility]) [address] [place] [address] Phosphate [Moles/Vol]on 02-23 Interpretation and review of laboratory results Normal [facility] Phosphate [Mass/Vol] 3.2 mg/dL 2.5 - 4 .5 mg/dL [facility] Progress Noteon 03-21-2023 Progress Note Cardiothoracic Surgery Interval Note PATIENT NAME: Robert Lipscomb : 1955 (67 y.o.) TODAY'S DATE: 03/21/2023 Interval History: Extubated, no stridor; placed on NC. Continue to monitor Normal [facility] Progress Note 03/21/23 1414 Patient Parameters Heart Rate 102 Resp (!) 30 SpO2 93 % Settings Vent Mode SPONT Mandatory Type VC Spontaneous Type TC Vt (Set, mL) 450 mL IP Set (cm H2O) 0 cm H2O FiO2 (%) 30 % PEEP/CPAP (cm H2O) 5 cm H20 Peak Flow 55 L/min Sensitivity 3 Expiratory Sensitivity (%) 25 % % Support 0 % Readings PIP Observed (cm H2O) 12 cm H2O MAP (cm H2O) 7.7 Resp Rate Observed 31 Vt (observed, mL) 440 mL Minute Ventilation (L/min) 16.3 L/min I:E Ratio 1:2.40 Plateau Pressure (cm H2O) 0 cm H2O Dynamic Compliance (L/cm H2O) 64 L/cm H2O Static Compliance (L/cm H2O) 0 Airway Resistance 2.2 Total PEEP (cm H2O) 0 cm H2O Alarms High RR Alarm 45 breaths per minute Insp Pressure High (cm H2O) 40 cm H2O MV High (L/min) 18 L/min MV Low (L/min) 3.5 L/min Vt High (ciara) (mL) 950 mL Vt Low (ciara) (mL) 200 mL Vt High (spont) (mL) 950 mL Vt Low (spont) (mL) 200 mL High VTi 1050 Apnea Interval (sec) 20 seconds Spontaneous Breathing Trial SpO2>/=88% Yes FiO2 PEEP HR <140 BPM Yes RR MAP >/= 65mmHg Yes Arterial pH >7.30 and <7.50 Yes Safety Screen Spontaneous Breathing Trial (SBT) Proceed with SBT - No exclusion criteria met Weaning Parameters Weaning Start Time 1415 Weaning Tidal Volume 438 mL Weaning Respiratory Rate 30 Spontaneous Minute Volume (MV) 15.2 Total RSBI 68.49 Weaning Tolerance Fair Weaning Stop Time 1445 Weaning Duration (min) 30 Spontaneous Breathing Trial (SBT) Outcome SBT Passed [facility] US Heart TransesophagealOrde red By: Juanjose Oreilly on 03-21-2023 EF Physician 55 % [employer] Work Phone: [employer] Work Phone: Heart Transesophagealon 0 03-21-2023 CV CPACS HEMO XR CHEST 1 VIEWon 03-21-2023 XR CHEST 1 VIEW Patient Name: ROBERT LIPSCOMB : 1955 Exam Date/Time: 03/21/2023 14:47 Procedure: XR CHEST 1 VIEW Ordering Provider: JACINTO KYLE Reason For Exam: Post op open heart surgery CHEST CLINICAL INDICATION: Post op open heart surgery TECHNIQUE: AP portable chest COMPARISON: Chest radiograph from 03/11/2023 FINDINGS: SUPPORT DEVICES: Tip of the endotracheal tube projects 2.3 cm above the gay. Right internal jugular approach [place] catheter tip projects over the central pulmonary outflow tract. Tip of the enteric tube projects over the region of the gastric body. Left basilar chest tube and mediastinal drain. HEART AND MEDIASTINUM: Mild prominence of the cardiac silhouette. Mediastinal surgical clips.. LUNGS AND PLEURA: The lungs are hypoinflated. Consolidation in the lung bases, left greater than right. Mild central pulmonary vascular congestion. Moderate left and small right pleural effusions. No pneumothorax is identified. OSSEOUS STRUCTURES: Degenerative change of the spine. Sternal fixation hardware. Bilateral acromioclavicular joint DJD. Metallic clips project over the upper abdomen. IMPRESSION: Moderate left and small right pleural effusions. Mild consolidation in the lung bases, likely due to atelectasis. Tubes and lines, as above. Report Dictated on Electronically Signed By: Silvia Banks MD Electronically Signed Date/Time: 03/21/2023 2:07 PM EDT Normal [facility] XR Chest Single viewon 03-21 [facility] Radiology Study observation (narrative) [facility] XR Chest Single viewOrdered By: Silvia Banks on 03-21-2023 [facility] Work Phone: ECG 12-LEADon 03-13-2023 ECG 12-LEAD IMPRESSION: Sinus rhythm Right bundle branch block Consider inferior infarction Electronically Signed On 03-13-2023 13:26:08 EDT by Jesenia Lehman Normal [facility] XR CHEST 2 VIEWSon 3 XR CHEST 2 VIEWS Patient Name: ROBERT LIPSCOMB : 1955 Exam Date/Time: 03/11/2023 16:48 Procedure: XR CHEST 2 VIEWS Ordering Provider: RAE ALLISON Reason For Exam: pre procedure CHEST, PA AND LATERAL: INDICATION: Preprocedure COMPARISON: No previous studies are available for comparison. PA and lateral views of the chest were obtained. The heart is normal in size. The mediastinal silhouette is normal. There is eventration of the right hemidiaphragm. Linear atelectasis of the left base is present. There is biapical pleural thickening. Arthritic changes of the spine and shoulders are present. IMPRESSION: Eventration of the right hemidiaphragm. No acute process. Report Dictated on Electronically Signed By: Guevara Brown DO Electronically Signed Date/Time: 03/12/2023 7:11 AM EDT [facility] XR Chest 2 Viewson 3 Eventration of the right hemidiaphragm. No acute process. Report Dictated on Electronically Signed By: Guevara Brown DO Electronically Signed Date/Time: 03/12/2023 7:11 AM EDT [facility] Patient Name: ROBERT LIPSCOMB : 1955 Exam Date/Time: 03/11/2023 16:48 Procedure: XR CHEST 2 VIEWS Ordering Provider: RAE ALLISON Reason For Exam: pre procedure CHEST, PA & LATERAL: INDICATION: Preprocedure COMPARISON: No previous studies are available for comparison. PA and lateral views of the chest were obtained. The heart is normal in size. The mediastinal silhouette is normal. There is eventration of the right hemidiaphragm. Linear atelectasis of the left base is present. There is biapical pleural thickening. Arthritic changes of the spine and shoulders are present. [facility] Guevara Brown DO - 03/12/2023 Patient Name: ROBERT LIPSCOMB : 1955 Exam Date/Time: 03/11/2023 16:48 Procedure: XR CHEST 2 VIEWS Ordering Provider: RAE ALLISON Reason For Exam: pre procedure CHEST, PA & LATERAL: INDICATION: Preprocedure COMPARISON: No previous studies are available for comparison. PA and lateral views of the chest were obtained. The heart is normal in size. The mediastinal silhouette is normal. There is eventration of the right hemidiaphragm. Linear atelectasis of the left base is present. There is biapical pleural thickening. Arthritic changes of the spine and shoulders are present. IMPRESSION: Eventration of the right hemidiaphragm. No acute process. Report Dictated on Electronically Signed By: Guevara Brown DO Electronically Signed Date/Time: 03/12/2023 7:11 AM EDT [facility] XR Chest 2 ViewsOrdered By: Guevara Brown on 03-12-2023 [facility] Work Phone: BLOOD TYPE AND SCREEN GELon 03-11-2023 ABO GROUPING B Normal [facility] Comment on above: Performed By: #### L [id number], [id number] #### Mulcher Operator: TONI NAVA ([id number]) [facility]) [address] [place] [address] RH TYPE IN BLOOD Positive Normal [facility] Comment on above: Performed By: #### L [id number], [id number] #### Mulcher Operator: TONI NAVA ([id number]) [facility] ([facility]) [address] [place] [address] CBC (HEMOGRAM)on 03-11-2023 Erythrocyte distribution width (RBC) [Ratio] 14.4 % Normal 11.5-14.5 [facility] Comment on above: Performed By: #### L [id number] #### Mulcher Operator: TONI NAVA ([id number]) [address] ERYTHROCYTE MEAN CORPUSCULAR HEMOGLOBIN CONCENTRATION (G/DL) BY AUTOMATED 32.9 % Normal 32.0-36.0 [facility] Comment on above: Performed By: #### L [id number] #### Mulcher Operator: TONI NAVA ([id number]) [facility]) [address] [place] [address] Hematocrit (Bld) [Volume fraction] 41.8 % Normal 40.0-52.0 [facility] Comment on above: Performed By: #### L [id number] #### Mulcher Operator: TONI [id number]) [facility] ([facility]) [address] [place] [address] Hemoglobin (Bld) [Mass/Vol] 13.7 g/dL Normal 13.0-18.0 [facility] Comment on above: Performed By: #### L [id number] #### Mulcher Operator: TONI NAVA ([id number]) [facility] ([facility]) [address] [place] [address] MCH (RBC) [Entitic mass] 29.0 pg Normal 26.0-34.0 [facility] Comment on above: Performed By: #### L [id number] #### Mulcher Operator: TONI NAVA ([id number]) [facility] ([facility]) [address] [place] [address] MCV (RBC) [Entitic vol] 88.2 fL Normal 80.0-98.0 [facility] Comment on above: Performed By: #### L [id number] #### Mulcher Operator: TONI NAVA ([id number]) [facility] [address] [place] [address] Platelet mean volume (Bld) [Entitic vol] 8.4 fL Normal 7.4-12.4 [facility] Comment on above: Performed By: #### L [id number] #### Mulcher Operator: TONI NAVA ([id number]) [facility] ([facility]) [address] [place] [address] PLATELETS (10*3/UL) IN BLOOD AUTOMATED COUNT 223 10*3/uL Normal 140-440 [facility] Comment on above: Performed By: #### L [id number] #### Mulcher Operator: TONI NAVA ([id number]) [facility] ([facility]) [address] [place] [address] RBC (Bld) [#/Vol] 4.74 10*6/uL Normal 4.40-5.90 [facility] Comment on above: Performed By: #### L [id number] #### Mulcher Operator: TONI NAVA ([id number]) [facility] ([facility]) [address] [place] [address] WBC (Bld) [#/Vol] 9.0 10*3/uL Normal 3.6-10.7 [facility] Comment on above: Performed By: #### L [id number] #### Mulcher Operator: TONI NAVA ([id number]) [facility] ([facility]) [address] [place] [address] COMPLETE URINALYSISon 2022 BACTERIA (#/HPF) IN URINE Negative Normal Negative [facility] Comment on above: Performed By: #### L [id number] #### Mulcher Operator: TONI NAVA ([id number]) [facility] ([facility]) [address] [place] [address] BILIRUBIN, TOTAL PRESENCE IN URINE Negative Normal Negative [facility] Comment on above: Performed By: #### L [id number] #### Mulcher Operator: TONI NAVA ([id number]) [facility] [address] [place] [address] Clarity (U) Clear Normal Clear [facility] Comment on above: Performed By: #### L [id number] #### Mulcher Operator: TONI NAVA ([id number]) [facility] ([facility]) [address] [place] [address] Color (U) Light Yellow Normal Lt. Yellow [facility] Comment on above: Performed By: #### L [id number] #### Mulcher Operator: TONI NAVA ([id number]) [facility] [address] [place] [address] Glucose (U) [Mass/Vol] 30 mg/dL Normal Normal (<70) [facility] Comment on above: Performed By: #### L [id number] #### Mulcher Operator: TONI [id number]) [facility] ([facility]) [address] [place] [address] HEMOGLOBIN PRESENCE IN URINE Negative Normal Negative [facility] Comment on above: Performed By: #### L [id number] #### Mulcher Operator: TONI [id number]) [facility]) [address] [place] [address] HYALINE CASTS (#/LPF) IN URINE SEDIMENT BY MICROSCOPY Negative Normal Negative [facility] Comment on above: Performed By: #### L [id number] #### Mulcher Operator: TONI NAVA ([id number]) [facility] ([facility]) [address] [place] [address] Ketones Ql (U) Negative Normal Negative [facility] Comment on above: Performed By: #### L [id number] #### Mulcher Operator: TONI NAVA ([id number]) [facility] ([facility]) [address] [place] [address] LEUKOCYTE ESTERASE PRESENCE IN URINE BY TEST STRIP Negative Normal Negative [facility] Comment on above: Performed By: #### L [id number] #### Mulcher Operator: TONI NAVA ([id number]) [facility] ([facility]) [address] [place] [address] [place] MUCUS (#/LPF) IN URINE SEDIMENT Few Normal Negative [facility] Comment on above: Performed By: #### L [id number] #### Mulcher Operator: TONI NAVA ([id number]) [facility] ([facility]) [address] [place] [address] NITRITE PRESENCE IN URINE Negative Normal Negative [facility] Comment on above: Performed By: #### L [id number] #### Mulcher Operator: TONI NAVA ([id number]) [facility] ([facility]) [address] [place] [address] pH (U) 5.5 [pH] Normal 5.0-8.0 [facility] Comment on above: Performed By: #### L [id number] #### Mulcher Operator: TONI NAVA ([id number]) [facility] ([facility]) [address] [place] [address] Protein (U) [Mass/Vol] 10 mg/dL Abnormal Negative [facility] Comment on above: Performed By: #### L [id number] #### Mulcher Operator: TONI NAVA ([id number]) [facility] ([facility]) [address] [place] [address] RBC (#/HPF) IN URINE SEDIMENT 3-5 Abnormal 0-2 [facility] Comment on above: Performed By: #### L [id number] #### Mulcher Operator: TONI NAVA ([id number]) [facility] ([facility]) [address] [place] [address] Specific gravity (U) [Rel density] 1.024 Normal 1.005-1.030 [facility] Comment on above: Performed By: #### L [id number] #### Mulcher Operator: TONI NAVA ([id number]) [facility] ([facility]) [address] [place] [address] SQUAMOUS EPITHELIAL CELLS (#/HPF) IN URINE SEDIMENT 0-2 Normal 3-5 [facility] Comment on above: Performed By: #### L [id number] #### Mulcher Operator: TONI NAVA ([id number]) [facility]) [address] [place] [address] UROBILINOGEN (MG/DL) IN URINE 2 mg/dL Abnormal Normal (0-1) [facility] Comment on above: Performed By: #### L [id number] #### Mulcher Operator: TONI NAVA ([id number]) [facility] ([facility]) [address] [place] [address] WBC (LEUKOCYTE) (#/HPF) IN URINE SEDIMENT 0-2 Normal 0-5 [facility] Comment on above: Performed By: #### L [id number] #### Mulcher Operator: TONI NAVA ([id number]) [facility] ([facility]) [address] [place] [address] COMPREHENSIVE METABOLIC PANE Teofilo 03-11-2023 Albumin [Mass/Vol] 4.2 g/dL Normal 3.5-5.0 [facility] Comment on above: Performed By: #### L [id number], [id number] #### Mulcher Operator: TONI NAVA ([id number]) [facility] ([facility]) [address] [place] [address] [place] ALP [Catalytic activity/Vol] 81 U/L Normal 38-126 [facility] Comment on above: Performed By: #### L [id number], [id number] #### Mulcher Operator: TONI NAVA ([id number]) [facility] ([facility]) [address] [place] [address] ALT [Catalytic activity/Vol] 27 U/L Normal 0-49 [facility] Comment on above: Performed By: #### L [id number], [id number] #### Mulcher Operator: TONI NAVA ([id number]) [facility] ([facility]) [address] [place] [address] Anion gap [Moles/Vol] 12 mmol/L Normal 3-13 [facility] Comment on above: Performed By: #### L [id number], [id number] #### Mulcher Operator: TONI NAVA ([id number]) [facility] ([facility]) [address] [place] [address] AST [Catalytic activity/Vol] 35 U/L Normal 15-46 [facility] Comment on above: Performed By: #### L [id number], [id number] #### Mulcher Operator: TONI NAVA ([id number]) [facility] ([facility]) [address] [place] [address] Bilirubin [Mass/Vol] 1.0 mg/dL Normal 0.2-1.3 [facility] Comment on above: Performed By: #### L [id number], [id number] #### Mulcher Operator: TONI NAVA ([id number]) [facility] ([facility]) [address] [place] [address] [place] Calcium [Mass/Vol] 9.0 mg/dL Normal 8.4-10.4 [facility] Comment on above: Performed By: #### L [id number], [id number] #### Mulcher Operator: TONI NAVA ([id number]) [facility]) [address] [place] [address] [place] Chloride [Moles/Vol] 103 mmol/L Normal 98-107 [facility] Comment on above: Performed By: #### L [id number], [id number] #### Mulcher Operator: TONI NAVA ([id number]) [facility] ([facility]) [address] [place] [address] CO2 [Moles/Vol] 27 mmol/L Normal 22-30 [facility] Comment on above: Performed By: #### L [id number], [id number] #### Mulcher Operator: TNOI NAVA ([id number]) [facility] ([facility]) [address] [place] [address] Creatinine [Mass/Vol] 1.37 mg/dL High 0.66-1.25 [facility] Comment on above: Performed By: #### L [id number], [id number] #### Mulcher Operator: TONI NAVA ([id number]) [facility]) [address] [place] [address] GLOMERULAR FILTRATION RATE ML/MIN/1.73 SQ M.PREDICTED 55.8 mL/min/1.73m*2 Low >60.0 [facility] Comment on above: Result Comment: Calc ulation based on the Chronic Kidney Disease Epidemiology Collaboration (CKD-EPI) equation refit without adjustment for race Performed By: #### L [id number], [id number] #### Mulcher Operator: TONI NAVA ([id number]) [facility] ([facility]) [address] [place] [address] [place] Glucose [Mass/Vol] 123 mg/dL High 70-100 [facility] Comment on above: Performed By: #### L [id number], [id number] #### Mulcher Operator: TONI NAVA ([id number]) [facility] ([facility]) [address] [place] [address] [place] Potassium [Moles/Vol] 4.2 mmol/L Normal 3.5-5.1 [facility] Comment on above: Performed By: #### L [id number], [id number] #### Mulcher Operator: TONI NAVA ([id number]) [facility]) [address] [place] [address] Protein [Mass/Vol] 7.6 g/dL Normal 6.3-8.2 [facility] Comment on above: Performed By: #### L AB15, [id number] #### Mulcher Operator: TONI NAVA ([id number]) [facility]) [address] [place] [address] Sodium [Moles/Vol] 142 mmol/L Normal 135-145 [facility] Comment on above: Performed By: #### L [id number], [id number] #### Mulcher Operator: TONI NAVA ([id number]) [facility]) [address] [place] [address] Urea nitrogen [Mass/Vol] 29 mg/dL High 9-20 [facility] Comment on above: Performed By: #### L [id number], [id number] #### Mulcher Operator: TONI NAVA ([id number]) [facility]) [address] [place] [address] HEMOGLOBIN A1Con 03-11-2023 Glucose [Mass/Vol] 180 mg/dL Normal [facility] Comment on above: Performed By: #### L AB15, [id number] #### Mulcher Operator: TONI NAVA ([id number]) [facility]) [address] [place] [address] HbA1c (Bld) [Mass fraction] 7.9 % High <5.7 [facility] Comment on above: Result Comment: Norm al less than 5.7% Prediabetes 5.7% to 6.4% Diabetes 6.5% or higher --HgbA1C levels may not be accurate in patients who have renal disease, received recent blood transfusions, are anemic, or who have dyshemoglobinemia. Performed By: #### L AB15, [id number] #### Mulcher Operator: TONI NAVA ([id number]) [facility]) [address] [place] [address] MRSA BY PCRon 03-11-2023 MRSA BY PCR STAPHYLOCOCCUS AUREUS Reference Not Detected Not Detected MECA GENE Reference Not Detected Not Detected ORDER COMMENTS: No Staphylococcus aureus detected. Negative nasal MRSA PCR has a high negative predictive value for MRSA pneumonia. Consider stopping Vancomycin if no other clinical indication. Contact Antimicrobial Stewardship for further recommendations. Staphylococcus aureus nasal screen by real-time PCR. This test was modified and its performance characteristics determined by [facility]. The U. S. Food and Drug Administration has not approved or cleared this test; however, FDA clearance or approval is not currently required for clinical use. The results are not intended to be used as the sole means for clinical diagnosis or patient management decisions. Normal [facility] Comment on above: Performed By: #### L AB15, [id number] #### Mulcher Operator: TONI NAVA ([id number]) [facility] ([facility]) [address] [place] [address] No Panel InformationOrdered By: Juanjose Boles on 03-11-2023 Left GSV at Knee Diam 3.6 mm [facility] Work Phone: Left GSV BK Dist Diam 4.1 mm [facility] Work Phone: Left GSV BK Mid Diam 3.3 mm [facility] Work Phone: Left GSV BK Prox Diam 3.9 mm [facility] Work Phone: Left GSV Junc Diam 7.1 mm [facility] Work Phone: Left GSV Thigh Dist Diam 4.9 mm [facility] Work Phone: Left GSV Thigh Mid Diam 4.6 mm [facility] Work Phone: Left GSV Thigh Prox Diam 4.9 mm [facility] Work Phone: Left SSV Dist Diam 3.4 mm [facility] Work Phone: Left SSV Mid Diam 3.2 mm [facility] Work Phone: Left SSV Prox Diam 3.5 mm [facility] Work Phone: Right GSV at Knee Diam 4.6 mm [facility] Work Phone: Right GSV BK Dist Diam 4.1 mm [facility] Work Phone: Right GSV BK Mid Diam 3.4 mm [facility] Work Phone: Right GSV BK Prox Diam 3.5 mm [facility] Work Phone: Right GSV Junc Diam 5.9 mm [facility] Work Phone: Right GSV Thigh Dist Diam 4.6 mm [facility] Work Phone: Right GSV Thigh Mid Diam 5.1 mm [facility] Work Phone: Right GSV Thigh Prox Diam 3.6 mm [facility] Work Phone: Right SSV Dist Diam 2.1 mm [facility] Work Phone: Right SSV Mid Diam 2.6 mm [facility] Work Phone: Right SSV Prox Diam 2.7 mm [facility] Work Phone: No Panel Informationon 03-11 Vessel diameters as noted in the table below. Vessel diameters as noted in the table below. No evidence of superficial thrombosis in the right lower extremity. No evidence of superficial thrombosis in the left lower extremity. Right Lower Venous No evidence of superficial thrombosis in the right lower extremity. Branches noted coming off at mid and distal gsv at the calf. Left Lower Venous No evidence of superficial thrombosis in the left lower extremity. Branch noted coming off at left distal SSV. [employer] Principal Details A meredith scale ultrasound was performed. During the study transverse views were obtained. The exam was performed with the patient in the supine position. Overall the study quality was good. Study was technically difficult due to: body habitus. CV CPACS PREPROCINSon 03-11-2023 PREPROCINS Medication List Accurate as of March 11, 2023 3:42 PM. Always use your most recent med list. amLODIPine 5 MG tablet Commonly known as: Norvasc Notes to patient: Hold day of surgery aspirin 81 MG oral suspension Notes to patient: Hold day of surgery atenolol 50 MG tablet Commonly known as: Tenormin Notes to patient: Hold day of surgery chlorhexidine 0.12 % solution Commonly known as: Peridex Medication Adjustments for Surgery: Take morning of surgery enalapril 20 MG tablet Commonly known as: Vasotec Notes to patient: Hold day of surgery Lantus SoloStar 100 UNIT/ML pen Generic drug: insulin glargine Medication Adjustments for Surgery: Take night before surgery Notes to patient: Take 40 units the evening before surgery. Do not take any insulin the morning of surgery mupirocin 2 % ointment Commonly known as: Bactroban Apply liberal amount per nostril the night before surgery and then again the morning of surgery Medication Adjustments for Surgery: Take morning of surgery nitroglycerin 0.4 MG SL tablet Commonly known as: Nitrostat Notes to patient: Hold day of surgery Prevagen 10 MG capsule Generic drug: Apoaequorin Notes to patient: Hold day of surgery repaglinide 2 MG tablet Commonly known as: Prandin Notes to patient: Hold day of surgery rosuvastatin 20 MG tablet Commonly known as: Crestor Notes to patient: Hold day of surgery Victoza 18 MG/3ML injection Generic drug: liraglutide Notes to patient: Hold day of surgery Do not eat after midnight. You may have clear liquids up to two hours prior to your surgery. Follow instructions on use of Hibiclens, nasal ointment and mouth rinse as instructed. After using Hibiclens, no makeup,lotion,powder or body spray. No hair products. Remove all jewelry and leave it at home. Do not wear contacts day of surgery. Additional Instructions: You may take Tylenol for pain. NO Motrin, ibuprofen or Advil for 24 hours prior to surgery or longer if instructed by your surgeon. NO Aleve or Naprosyn for 5 days prior to surgery or longer if instructed by your surgeon. Follow any instructions given to you by Dr. Childress. No marijuana (THC), smoking or alcohol for 24 hours prior to surgery. If you have specific questions, please call your surgeon. You will receive a call the day before your surgery to verify your arrival time and date. You will be asked to arrive at least two hours prior to your scheduled surgery time. Please bring your [facility] folder and medication list with you day of surgery. We encourage you to write down any questions you may have for the surgeon, anesthesiologist, or other members of the surgical team and bring it with you the day of surgery. Please bring photo ID and insurance information. LEARNING CONSULTANT AND PARKING IN THE MAIN DECK ARE FREE DAY OF SURGERY. PARKING IN THE DECK-- AFTER PARKING TAKE THE ELEVATOR TO LEVEL ONE AND TAKE THE BRIDGE TO THE HOSPITAL. GO TO THE RIGHT AND GO AROUND THE CORNER TO THE SAME DAY SURGERY DESK AND CHECK IN THERE. IF GOING IN THE MAIN ENTRANCE-- TURN LEFT AND GO DOWN THE JALLOH TO THE H ELEVATORS AND TAKE THEM TO ONE, LEFT OFF THE ELEVATOR AND GO AROUND TO THE SAME DAY DESK AND CHECK IN. Normal [facility] PREPROCINS Medication List Accurate as of March 11, 2023 3:32 PM. Always use your most recent med list. amLODIPine 5 MG tablet Commonly known as: Norvasc aspirin 81 MG oral suspension atenolol 50 MG tablet Commonly known as: Tenormin chlorhexidine 0.12 % solution Commonly known as: Peridex enalapril 20 MG tablet Commonly known as: Vasotec Lantus SoloStar 100 UNIT/ML pen Generic drug: insulin glargine mupirocin 2 % ointment Commonly known as: Bactroban Apply liberal amount per nostril the night before surgery and then again the morning of surgery nitroglycerin 0.4 MG SL tablet Commonly known as: Nitrostat Prevagen 10 MG capsule Generic drug: Apoaequorin repaglinide 2 MG tablet Commonly known as: Prandin rosuvastatin 20 MG tablet Commonly known as: Crestor Victoza 18 MG/3ML injection Generic drug: liraglutide Do not eat after midnight. You may have clear liquids up to two hours prior to your surgery. Follow instructions on use of Hibiclens, nasal ointment and mouth rinse as instructed. After using Hibiclens, no makeup,lotion,powder or body spray. No hair products. Remove all jewelry and leave it at home. Do not wear contacts day of surgery. Additional Instructions: You may take Tylenol for pain. NO Motrin, ibuprofen or Advil for 24 hours prior to surgery or longer if instructed by your surgeon. NO Aleve or Naprosyn for 5 days prior to surgery or longer if instructed by your surgeon. Follow any instructions given to you by Dr. Childress. No marijuana (THC), smoking or alcohol for 24 hours prior to surgery. If you have specific questions, please call your surgeon. You will receive a call the day before your surgery to verify your arrival time and date. You will be asked to arrive at least two hours prior to your scheduled surgery time. Please bring your [facility] folder and medication list with you day of surgery. We encourage you to write down any questions you may have for the surgeon, anesthesiologist, or other members of the surgical team and bring it with you the day of surgery. Please bring photo ID and insurance information. LEARNING CONSULTANT AND PARKING IN THE MAIN DECK ARE FREE DAY OF SURGERY. PARKING IN THE DECK-- AFTER PARKING TAKE THE ELEVATOR TO LEVEL ONE AND TAKE THE BRIDGE TO THE HOSPITAL. GO TO THE RIGHT AND GO AROUND THE CORNER TO THE SAME DAY SURGERY DESK AND CHECK IN THERE. IF GOING IN THE MAIN ENTRANCE-- TURN LEFT AND GO DOWN THE JALLOH TO THE H ELEVATORS AND TAKE THEM TO ONE, LEFT OFF THE ELEVATOR AND GO AROUND TO THE SAME DAY DESK AND CHECK IN. Normal [facility] PROTIME AND APTTon 3 aPTT Coag (Bld) [Time] 25.9 s Normal 20.0-30.5 [facility] Comment on above: Performed By: #### L AB15, [id number] #### Mulcher Operator: TONI NAVA ([id number]) [facility] [address] [place] [address] INR Coag (PPP) [Relative time] 1.0 {INR} Normal 0.9-1.1 [facility] Comment on above: Result Comment: Raúl mmended Anticoagulant Therapy: SEE BELOW ----- INR of 2.0 - 3.0 : - Prophylaxis of Venous Thrombosis (high-risk surgery) - Treatment of Venous Thrombosis - Treatment of Pulmonary Embolism (Includes tissue heart valves, Acute Myocardial Infarction to prevent systemic embolism, Valvular Heart Disease, and Atrial Fibrillation) ----- INR of 2.5 - 3.5 : - Mechanical Prosthetic Valves (high risk) - If oral anticoagulant therapy is used to prevent Myocardial Infarction Performed By: #### L AB15, [id number] #### Mulcher Operator: TONI NAVA ([id number]) [facility] [address] [place] [address] PT Coag (PPP) [Time] 11.1 s Normal 9.0-12.0 [facility] Comment on above: Performed By: #### L AB15, [id number] #### Mulcher Operator: TONI NAVA ([id number]) [facility] [address] [place] [address] XR Chest 2 Viewson 3 Radiology Study observation (narrative) Cris fuller [id number] 36 Pre op teaching done with patient. Instructed to hold NSAIDS except Aspirin 7 days prior to surgery, and not to take any medications day of surgery. Pharmacy confirmed. All questions answered. Normal [facility] 36on 02-28-2023 36 Completed Normal [facility] Office Visiton 02-27-2023 Follow-up visit [id number] Robert Lipscomb 1955 M Date Provider Department Center 02/27/[address] None No family history on file Level of Service:54207 ND OFFICE/OP CONSLTJ NEW/EST PT HIGH MDM 55 MINUTES Reason for Visit and Comments: New Patient [542] Normal [facility] Progress Noteon 02-27-2023 Progress Note [facility] [address] [facility] [address] Dept: [phone] Dept Loc: [phone] Visit type: New Reason for Visit: Coronary artery disease Assessment and plan 67-year-old male with multivessel coronary artery disease. Coronary artery disease: I discussed with him and his the indications, risks, benefits, and perioperative course of a coronary artery bypass grafting. I discussed alternatives including no intervention, medical therapy only, and percutaneous coronary intervention with medications. A surgical revascularization is recommended in his case. On my review of the coronary angiogram, he does have good targets and will need 3 vessel bypass grafts. He is quite functional and is of low risk. He is agreeable. For work-up completion, I have ordered an echocardiogram, CT chest without contrast, and lower extremity vein mapping. The risks of the procedure/s include but are not limited to, bleeding, infection, pneumonia, respiratory failure, prolonged Intensive Care Unit stay, multiorgan failure, renal failure needing temporary and/or permanent dialysis, cerebrovascular accident, pulmonary embolism, deep venous thrombosis, cardiac failure or ischemia or arrhythmia, and . Donya Childress MD Cardiothoracic Surgery History of Present Illness Robert Lipscomb is a 67 y.o. male referred by Dr. Armendariz for CABG. Per notes, patient has a PMH of CAD, drug-eluting stent to the RCA in 2004, RBBB, HTN, hyperlipidemia, anemia, and diabetes (A1C 7.8). With his history he underwent a heart cath that showed 0% calcified ostial LAD; 50-60% Mid LAD 80% Mid RCA 60% Prox OM2; 90% ostial late OM2 (small 1.5 mm vessel) with the recommendations for surgery coronary revascularization. He had mild chest pain prompting presentation. Stress test showed ischemia prompting coronary angiogram which showed the above. I have reviewed the images and my interpretation as above. He had extensive abdominal surgery in the that included a right diaphragmatic repair. Patient is here today for an evaluation. Past Medical History Coronary artery disease History of testicular cancer in the Past Surgical History Laparotomy Hernia repair Diaphragmatic repair Family History None contributory Social History Social History Tobacco Use Smoking status: Never Smokeless tobacco: Never Substance Use Topics Alcohol use: Not Currently Drug use: Never Allergies Allergies Allergen Reactions Amoxicillin Amoxicillin-Pot Clavulanate Atorvastatin Other Metformin Hcl Other Other pollen causes redness of eyes Pollen Extract Cough Clavulanic Acid Rash Metformin Diarrhea and Rash Medications Current Outpatient Medications: amLODIPine (Norvasc) 5 MG tablet, , Disp: , Rfl: Apoaequorin (Prevagen) 10 MG capsule, , Disp: , Rfl: aspirin 81 MG oral suspension, , Disp: , Rfl: atenolol (Tenormin) 50 MG tablet, , Disp: , Rfl: enalapril (Vasotec) 20 MG tablet, , Disp: , Rfl: insulin glargine (Lantus SoloStar) 100 UNIT/ML pen, , Disp: , Rfl: liraglutide (Victoza) 18 MG/3ML injection, , Disp: , Rfl: Multiple Vitamins-Minerals (Centrum Silver 50+Men) tablet, , Disp: , Rfl: nitroglycerin (Nitrostat) 0.4 MG SL tablet, Place 0.4 mg under the tongue every 5 minutes as needed for chest pain., Disp: , Rfl: repaglinide (Prandin) 2 MG tablet, , Disp: , Rfl: rosuvastatin (Crestor) 20 MG tablet, , Disp: , Rfl: Review of Systems Review of Systems All other systems reviewed and are negative. Physical Exam Vitals: BP (!) 158/76 (BP Location: Left arm, Patient Position: Sitting, BP Cuff Size: Large adult) Temp 36.2 ?C (97.1 ?F) Ht 5' 9 (1.753 m) Wt 298 lb 6.4 oz (135 kg) BMI 44.07 kg/m? Constitutional: General: Not in acute distress. Appearance: Normal appearance. Not toxic-appearing. Ear, nose, mouth: Bilateral external ear and nose normal. Nose: Nose normal. Mouth: Appearance normal, no bleeding, moist mucus membranes Eyes: General: No scleral icterus. No discharge from bilateral eyes Extraocular Movements: Extraocular movements intact. Pupils equal and reactive bilaterally Cardiovascular: Heart: Regular rhythm. Normal heart sounds. Vascular: No carotid bruit. Edema: No edema in bilateral lower extremities Pulmonary: Effort: Pulmonary effort is normal. No respiratory distress. Breath sounds: Normal breath sounds. No wheezing. Chest wall: No tenderness. Abdominal: Palpations: There is no abdominal tenderness, no guarding. Musculoskeletal: Bilateral upper and lower extremities: Normal range of motion, no deformity Head: Normocephalic and atraumatic. Neck: Normal range of motion and neck supple. No muscular tenderness. Lymphadenopathy: Cervical: No cervical adenopathy. Skin: General: Skin is warm and dry. Coloration: Skin is not jaund (more content not included)... Normal [facility] Absolute lymphocyte countOrd ered By: Richardson Ivy on 02-08-2023 Lymphocytes Auto (Unsp spec) [#/Vol] 1.40 10*3/uL 0.83-4.51 [facility] Basophil percentageOrdered B y: Richardson Ivy on 02-08-2023 Basophils/100 WBC (Bld) 0.5 % 0-1 [facility] Chloride [Moles/Vol] 112 mmol/L 98-107 [facility] Eosinophils/100 WBC (Bld) 4.6 % 0-5 [facility] Glucose [Mass/Vol] 141 mg/dL 74-106 [facility] Comment on above: Fasting Glucose resu lt greater than or equal to 126 mg/dL suggests DIABETES MELLITUS per A.D.A. criteria. Neutrophils (Bld) [#/Vol] 5.7 10*3/uL 2.0-7.7 [facility] Neutrophils/100 WBC (Bld) 69.2 % 47-70 [facility] Potassium [Moles/Vol] 4.5 mmol/L 3.5-5.1 [facility] Sodium [Moles/Vol] 142 mmol/L 136-145 [facility] WBC (Bld) [#/Vol] 8.2 10*3/uL 4.4-11.0 [facility] Blood erythrocytes count (nu mber/volume)Ordered By: Richardson Ivy on 02-08-2023 RBC (Bld) [#/Vol] 4.72 10*6/uL 4.6-6.2 [facility] Blood hemoglobin measurement (mass/volume)Ordered By: Richardson Ivy on 02-08-2023 Hemoglobin (Bld) [Mass/Vol] 13.1 g/dL 13.0-16.5 [facility] Blood lymphocytes/100 leukoc ytesOrdered By: Richardson Ivy on 02-08-2023 Lymphocytes/100 WBC (Bld) 17.1 % 19-41 [facility] Blood monocytes/100 leukocyt esOrdered By: Richardson Ivy on 02-08-2023 Monocytes/100 WBC (Bld) 8.2 % 0-10 [facility] Blood platelet mean volumeOr dered By: Richardson Ivy on 02-08-2023 Platelet mean volume (Bld) [Entitic vol] 10.6 fL 6.2-12.0 [facility] Determination of erythrocyte mean corpuscular volume (MCV)Ordered By: Richardson Ivy on 02-08-2023 MCV (RBC) [Entitic vol] 92.2 fL 80-94 [facility] Hematocrit Auto (Bld) [Volum e fraction]Ordered By: Richardson Ivy on 02-08-2023 Hematocrit (Bld) [Volume fraction] 43.5 % 40-54 [facility] INR in Blood by Coagulation assayOrdered By: Richardson Ivy on 02-08-2023 INR Coag (Bld) [Relative time] 1.1 {INR} [facility] Laboratory - Chemistry and C hemistry - challengeOrdered By: Richardson Ivy on 02-08-2023 CO2 [Moles/Vol] 31.0 mmol/L 21.0-32.0 [facility] Urea nitrogen/Creatinine [Mass ratio] 13.8 mg/mg 10-20 [facility] Laboratory - CoagulationOrde red By: Richardson Ivy on 02-08-2023 aPTT Coag (Bld) [Time] 26.7 s 24.1-36.2 [facility] Coag (PPP) [Time] 14.2 s 11.7-14.9 [facility] - Hematology and Cell countsOrdered By: Richardson Ivy on 02-08-2023 Erythrocyte distribution width (RBC) [Entitic vol] 45.9 fL 35.1-43.9 [facility] Erythrocyte distribution width (RBC) [Ratio] 13.6 % 11.6-14.6 [facility] Immature granulocytes/100 WBC (Bld) 0.400 % 0.0-0.9 [facility] Comment on above: IG% - Immature Granu locytes (promyelocytes, myelocytes and metamyelocytes) > 1% indicates that a LEFT SHIFT is Present. MCH (RBC) [Entitic mass] 27.8 pg 27.0-32.0 [facility] Nucleated RBC/100 WBC (Bld) [Ratio] 0 % 0-5 [facility] MCHC Auto (RBC) [Mass/Vol]Or dered By: Richardson Ivy on 02-08-2023 MCHC (RBC) [Mass/Vol] 30.1 g/dL 32-36 [facility] No Panel InformationOrdered By: Richardson Ivy on 02-08-2023 Estimated GFR (MDRD) Amer 70 mL/min >60 [facility] Comment on above: GFR Calc Estimated GFR (MDRD) Non-Af Amer 58 mL/min >60 [facility] Comment on above: Non- GFR Calc Platelets bldOrdered By: Kamran Ivy on 02-08-2023 Platelets (Bld) [#/Vol] 231 10*3/uL 150-450 [facility] Serum or plasma calcium zunilda urement (mass/volume)Ordered By: Richardson Ivy on 02-08-2023 Calcium [Mass/Vol] 8.7 mg/dL 8.5-10.1 [facility] Serum or plasma creatinine m easurement (mass/volume)Ordered By: Richardson Ivy on 02-08-2023 Creatinine [Mass/Vol] 1.30 mg/dL 0.70-1.30 [facility] Comment on above: The validity of the calculated GFR & GFRAA in patients over 70 years has not been determined. Clinical correlation is essential. Serum or plasma urea nitroge n measurement (mass/volume)Ordered By: Richardson Ivy on 02-08-2023 Urea nitrogen [Mass/Vol] 18 mg/dL -18 [facility] Thin prep Papanicolaou smear with manual screeningOrdered By: Richardson Ivy on 02-08-2023 Thin prep Papanicolaou smear with manual screening -1 5-15 [facility] Absolute lymphocyte countOrd ered By: Dr. Rodriguez on 06-26-2022 Lymphocytes Auto (Unsp spec) [#/Vol] 1.89 10*3/uL 0.83-4.51 [facility] Basophil percentageOrdered B y: Dr. Rodriguez on 06-26-2022 Basophils/100 WBC (Bld) 0.4 % 0-1 [facility] Bilirubin [Mass/Vol] 1.10 mg/dL 0.20-1.00 [facility] Comment on above: For patients on eltr ombopag therapy, use of Dimension Evans TBIL is not recommended. Chloride [Moles/Vol] 103 mmol/L 98-107 [facility] Cholesterol [Mass/Vol] 115 mg/dL <200 [facility] Comment on above: <200 mg/dL Desirable 200-240 mg/dL Borderline >240 mg/dL High Risk Eosinophils/100 WBC (Bld) 2.7 % 0-5 [facility] Glucose [Mass/Vol] 112 mg/dL 74-106 [facility] Comment on above: Fasting Glucose resu lt from 100 to 125 mg/dL suggests IMPAIRED HOMEOSTASIS per A.D.A. criteria. Neutrophils (Bld) [#/Vol] 6.8 10*3/uL 2.0-7.7 [facility] Neutrophils/100 WBC (Bld) 70.8 % 47-70 [facility] Potassium [Moles/Vol] 4.6 mmol/L 3.5-5.1 [facility] Protein [Mass/Vol] 7.2 g/dL 6.4-8.2 [facility] Sodium [Moles/Vol] 139 mmol/L 136-145 [facility] Triglyceride [Mass/Vol] 212 mg/dL <199 [facility] Comment on above: The drugs N-Acetylcy steine and Metamizole may falsely depress this assay.Serum Triglycerides Reference Interval Normal <150 mg/dL Borderline high 150 - 199 mg/dL High 200 - 499 mg/dL Very High > or = 500 mg/dL WBC (Bld) [#/Vol] 9.7 10*3/uL 4.4-11.0 [facility] Blood erythrocytes count (nu mber/volume)Ordered By: Dr. Rodriguez on 06-26-2022 RBC (Bld) [#/Vol] 5.15 10*6/uL 4.6-6.2 [facility] Blood hemoglobin measurement (mass/volume)Ordered By: Dr. Rodriguez on 06-26-2022 Hemoglobin (Bld) [Mass/Vol] 14.5 g/dL 13.0-16.5 [facility] Blood lymphocytes/100 leukoc ytesOrdered By: Dr. Rodriguez on 06-26-2022 Lymphocytes/100 WBC (Bld) 19.6 % 19-41 [facility] Blood monocytes/100 leukocyt esOrdered By: Dr. Rodriguez on 06-26-2022 Monocytes/100 WBC (Bld) 6.3 % 0-10 [facility] Blood platelet mean volumeOr dered By: Dr. Rodriguez on 06-26-2022 Platelet mean volume (Bld) [Entitic vol] 10.7 fL 6.2-12.0 [facility] Determination of erythrocyte mean corpuscular volume (MCV)Ordered By: Dr. Rodriguez on 06-26-2022 MCV (RBC) [Entitic vol] 89.7 fL 80-94 [facility] Hematocrit Auto (Bld) [Volum e fraction]Ordered By: Dr. Rodriguez on 06-26-2022 Hematocrit (Bld) [Volume fraction] 46.2 % 40-54 [facility] Laboratory - Chemistry and C hemistry - challengeOrdered By: Dr. Rodriguez on 06-26-2022 ALP [Catalytic activity/Vol] 77 U/L 45-117 [facility] ALT [Catalytic activity/Vol] 31 U/L 16-61 [facility] CO2 [Moles/Vol] 29.0 mmol/L 21.0-32.0 [facility] Globulin (S) [Mass/Vol] 3.8 g/dL 2.2-4.2 [facility] Urea nitrogen/Creatinine [Mass ratio] 11.5 mg/mg 10-20 [facility] Laboratory - Hematology and Cell countsOrdered By: Dr. Rodriguez on 06-26-2022 Erythrocyte distribution width (RBC) [Entitic vol] 42.7 fL 35.1-43.9 [facility] Erythrocyte distribution width (RBC) [Ratio] 13.1 % 11.6-14.6 [facility] Immature granulocytes/100 WBC (Bld) 0.200 % 0.0-0.9 [facility] Comment on above: IG% - Immature Granu locytes (promyelocytes, myelocytes and metamyelocytes) > 1% indicates that a LEFT SHIFT is Present. MCH (RBC) [Entitic mass] 28.2 pg 27.0-32.0 [facility] Nucleated RBC/100 WBC (Bld) [Ratio] 0 % 0-5 [facility] MCHC Auto (RBC) [Mass/Vol]Or dered By: Dr. Rodriguez on 06-26-2022 MCHC (RBC) [Mass/Vol] 31.4 g/dL 32-36 [facility] No Panel InformationOrdered By: Dr. Rodriguez on 06-26-2022 Estimated GFR (MDRD) Amer 70 mL/min >60 [facility] Comment on above: GFR Calc Estimated GFR (MDRD) Non-Af Amer 58 mL/min >60 [facility] Comment on above: Non- GFR Calc Prostate Specific Antigen Screen 0.53 ng/mL 0.00-4.00 [facility] Comment on above: This test was perfor med using the TPSA assay method for the[facility] system. Values obtained with differentassay methods cannot be used interchangably.When changing PSA assays in the course of monitoring apatient, additional sequential testing should be carriedout to confirm baseline values. Urine Microalbumin/Creatinine Ratio 11.5 mg/g CRE <30 [facility] Platelets bldOrdered By: Dr. Rodriguez on 06-26-2022 Platelets (Bld) [#/Vol] 221 10*3/uL 150-450 [facility] Serum or plasma albumin zunilda urement (mass/volume)Ordered By: Dr. Rodriguez on 06-26-2022 Albumin [Mass/Vol] 3.4 g/dL 3.2-5.0 [facility] Serum or plasma albumin/glob ulin mass ratioOrdered By: Dr. Rodriguez on 06-26-2022 Albumin/Globulin [Mass ratio] 0.9 {ratio} 0.9-2.4 [facility] Serum or plasma calcium zunilda urement (mass/volume)Ordered By: Dr. Rodriguez on 06-26-2022 Calcium [Mass/Vol] 8.9 mg/dL 8.5-10.1 [facility] Serum or plasma cholesterol in HDL measurement (mass/volume)Ordered By: Dr. Rodriguez on 06-26-2022 Cholesterol in HDL [Mass/Vol] 34 mg/dL >40 [facility] Comment on above: The drugs N-Acetylcy steine and Metamizole may falsely depress this assay. Reference Range HDL <40 mg/dL Low HDL Cholesterol HDL >or= 60 mg/dL High HDL Cholesterol Serum or plasma cholesterol in VLDL measurement (mass/volume)Ordered By: Dr. Rodriguez on 06-26-2022 Cholesterol in VLDL [Mass/Vol] 42 mg/dL 5-40 [facility] Serum or plasma creatinine m easurement (mass/volume)Ordered By: Dr. Rodriguez on 06-26-2022 Creatinine [Mass/Vol] 1.30 mg/dL 0.70-1.30 [facility] Comment on above: The validity of the calculated GFR & GFRAA in patients over 70 years has not been determined. Clinical correlation is essential. Serum or plasma low density lipoprotein (LDL) cholesterol measurement (mass/volume)Ordered By: Dr. Rodriguez on 06-26-2022 Cholesterol in LDL [Mass/Vol] 39 mg/dL 0-130 [facility] Serum or plasma urea nitroge n measurement (mass/volume)Ordered By: Dr. Rodriguez on 06-26-2022 Urea nitrogen [Mass/Vol] 15 mg/dL 7-18 [facility] Thin prep Papanicolaou smear with manual screeningOrdered By: Dr. Rodriguez on 06-26-2022 Thin prep Papanicolaou smear with manual screening 23 U/L 15-37 [facility] Thin prep Papanicolaou smear with manual screening 7 5-15 [facility] Thin prep Papanicolaou smear with manual screening 27.6 mg/L NO RANGE EST. [facility] Urine creatinine measurement (mass/volume)Ordered By: Dr. Rodriguez on 06-26-2022 Creatinine (U) [Mass/Vol] 240.00 mg/dL NO RANGE EST. [facility] Whole blood hemoglobin A1c/t otal hemoglobin ratio (mass fraction)Ordered By: Dr. Rodriguez on 06-26-2022 HbA1c (Bld) [Mass fraction] 7.9 % 3.8-5.6 [facility] Comment on above: Normal < 5.7 % Predi abetic 5.7 - 6.4 % Diabetic >or= 6.5 % Please note range changes. Shubham 02-02-2021 CNPN Telephone (RNUCWS) ROBERT LIPSCOMB ([id number]) 1955 M Date Time Provider Department 02/02/21 THAI SANCHES V RNUCWS During your visit today, we recorded the following information about you: Elina Webb Admin Sec 02/02/2021 9:34 AM Signed Pts called to request a disc copy and report of a chest x-ray pt had done on 08/04/2017. Call when ready. Azul Ramírez, PSS 02/02/2021 4:21 PM Signed CD/REPORTS READY FOR [facility] AT [facility] L/M FOR PT TO LET THEM KNOW Allergies As of Date: 02/02/2021 Noted Allergy Reaction AUGMENTIN (AMOXICILLIN-POT CLAVUL*04/24/2005 environmental [Other] 04/18/2010 5 - Intolerance Comments: pollen causes redness of eyes GLUCOPHAGE (METFORMIN HCL) 04/24/2005 LIPITOR (ATORVASTATIN CALCIUM) 04/24/2005 Date Reviewed: 10/05/2017 [facility]: [facility] Assessed Reason for Visit: disc request [Other] Prescriptions as of 02/03/2021 - albuterol HFA (VENTOLIN HFA) 90 mcg/actuation inhaler Inhale 2 Puffs as instructed every 4 hours as needed for Wheezing/Shortness of Breath. - nitroglycerin sublingual (NITROQUICK) 0.4 mg SL tablet Dissolve 1 tablet under the tongue as needed. DISSOLVE ON TONGUE FOR CHEST PAIN. IF NO PAIN RELIEF, CALL 911 - blood sugar diagnostic ([facility] ULTRA TEST) test strip Use as instructed testing blood sugars twice daily. Dx 250.02 - insulin glargine (BASAGLAR KWIKPEN) 100 unit/mL (3 mL) inpn Inject 65 Units subcutaneously twice daily. Indications: DIABETES MELLITUS - repaglinide (PRANDIN) 2 mg tablet Take 2 tablets before each meal and bedtime snack - rosuvastatin (CRESTOR) 20 mg tablet Take 1 tablet by mouth once daily. - atenolol (TENORMIN) 50 mg tablet Take 1 tablet by mouth once daily. - insulin needles, DISPOSABLE, (BD INSULIN PEN NEEDLE UF) 31 gauge x 5/16 ndle use as directed three times daily - enalapril (VASOTEC) 20 mg tablet Take 1 tablet by mouth once daily. - liraglutide (VICTOZA) 0.6 mg/0.1 mL (18 mg/3 mL) pnij Inject 1.8 mg subcutaneously once daily. - aspirin, enteric coated 81 mg EC tablet Take by mouth as directed. take 4 81mg tabs every morning - CENTRUM SILVER TAB Take one(1) tablet daily. 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 Temo Rodriguez DO Work Phone: [facility] 04-01-2025 08:40-0400 Body mass index (BMI) [Ratio] 42 kg/m2 Dr. Temo Rodriguez DO Work Phone: [facility] 04-01-2025 08:40-0400 Body weight 132.[address] Temo Rodriguez DO Work Phone: [facility] 04-01-2025 08:40-0400 Diastolic blood pressure 79 mm[Hg] Dr. Temo Rodriguez DO Work Phone: [facility] 04-01-2025 08:40-0400 Heart rate 76 /min Dr. Temo Rodriguez DO Work Phone: [facility] 04-01-2025 08:40-0400 SaO2% (BldA) [Mass fraction] 98 % Dr. Temo Rodriguez DO Work Phone: [facility] 04-01-2025 08:40-0400 Systolic blood pressure 151 mm[Hg] Dr. Temo Rodriguez DO Work Phone: [facility] 09-30-2024 08:44-0400 Body height 177.[address] Temo Rodriguez DO Work Phone: [facility] 09-30-2024 08:44-0400 Body mass index (BMI) [Ratio] 42.6 kg/m2 Dr. Temo Rodriguez DO Work Phone: [facility] 09-30-2024 08:44-0400 Body weight 134.[address] Temo Rodriguez DO Work Phone: [facility] 09-30-2024 08:44-0400 Diastolic blood pressure 79 mm[Hg] Dr. Temo Rodriguez DO Work Phone: [facility] 09-30-2024 08:44-0400 Heart rate 64 /min Dr. Temo Rodriguez DO Work Phone: [facility] 09-30-2024 08:44-0400 SaO2% (BldA) [Mass fraction] 97 % Dr. Temo Rodriguez DO Work Phone: [facility] 09-30-2024 08:44-0400 Systolic blood pressure 151 mm[Hg] Dr. Temo Rodriguez DO Work Phone: [facility] 08-26-2024 09:02-0500 Body height 177.[address] Temo Rodriguez DO Work Phone: [facility] 08-26-2024 09:02-0500 Body mass index (BMI) [Ratio] 42.5 kg/m2 Dr. Temo Rodriguez DO Work Phone: [facility] 08-26-2024 09:02-0500 Body weight 134.[address] Temo Rodriguez DO Work Phone: [facility] 08-26-2024 09:02-0500 Diastolic blood pressure 81 mm[Hg] Dr. Temo Rodriguez DO Work Phone: [facility] 08-26-2024 09:02-0500 Heart rate 79 /min Dr. Temo Rodriguez DO Work Phone: [facility] 08-26-2024 09:02-0500 Respiratory rate 18 /min Dr. Temo Rodriguez DO Work Phone: [facility] 08-26-2024 09:02-0500 Systolic blood pressure 136 mm[Hg] Dr. Temo Rodriguez DO Work Phone: [facility] 06-05-2024 16:39-0500 Body temperature 98.5 [degF] Dr. Temo Rodriguez DO Work Phone: [facility] 06-05-2024 16:39-0500 Diastolic blood pressure 66 mm[Hg] Dr. Temo Rodriguez DO Work Phone: [facility] 06-05-2024 16:39-0500 Heart rate 72 /min Dr. Temo Rodriguez DO Work Phone: [facility] 06-05-2024 16:39-0500 Respiratory rate 16 /min Dr. Temo Rodriguez DO Work Phone: [facility] 06-05-2024 16:39-0500 SaO2% (BldA) [Mass fraction] 97 % Dr. Temo Rodriguez DO Work Phone: [facility] 06-05-2024 16:39-0500 Systolic blood pressure 144 mm[Hg] Dr. Temo Rodriguez DO Work Phone: [facility] 06-03-2024 08:35-0500 Body mass index (BMI) [Ratio] 42.9 kg/m2 Dr. Temo Rodriguez DO Work Phone: [facility] 06-03-2024 08:35-0500 Body weight 135.[address] Temo Rodriguez DO Work Phone: [facility] 06-03-2024 08:35-0500 Diastolic blood pressure 68 mm[Hg] Dr. Temo Rodriguez DO Work Phone: [facility] 06-03-2024 08:35-0500 Heart rate 74 /min Dr. Temo Rodriguez DO Work Phone: [facility] 06-03-2024 08:35-0500 SaO2% (BldA) [Mass fraction] 95 % Dr. Temo Rodriguez DO Work Phone: [facility] 06-03-2024 08:35-0500 Systolic blood pressure 128 mm[Hg] Dr. Temo Rodriguez DO Work Phone: [facility] 10-17-2023 09:45-0400 Body height 177.[address] Temo Rodriguez Work Phone: [facility] 10-17-2023 09:45-0400 Body mass index (BMI) [Ratio] 42.5 kg/m2 Dr. Temo Rodriguez Work Phone: [facility] 10-17-2023 09:45-0400 Body temperature 98.6 [degF] Dr. Temo Rodriguez Work Phone: [facility] 10-17-2023 09:45-0400 Body weight 134.[address] Temo Rodriguez Work Phone: [facility] 10-17-2023 09:45-0400 Diastolic blood pressure 79 mm[Hg] Dr. Temo Rodriguez Work Phone: [facility] 10-17-2023 09:45-0400 Heart rate 66 /min Dr. Temo Rodriguez Work Phone: [facility] 10-17-2023 09:45-0400 Respiratory rate 18 /min Dr. Temo Rodriguez Work Phone: [facility] 10-17-2023 09:45-0400 SaO2% (BldA) [Mass fraction] 95 % Dr. Temo Rodriguez Work Phone: [facility] 10-17-2023 09:45-0400 Systolic blood pressure 146 mm[Hg] Dr. Temo Rodriguez Work Phone: [facility] 08-08-2023 09:08-0500 Body height 177.[address] Temo Rodriguez Work Phone: [facility] 08-08-2023 09:08-0500 Body mass index (BMI) [Ratio] 41.8 kg/m2 Dr. Temo Rodriguez Work Phone: [facility] 08-08-2023 09:08-0500 Body temperature 98.6 [degF] Dr. Temo Rodriguez Work Phone: [facility] 08-08-2023 09:08-0500 Body weight 132.[address] Temo Rodriguez Work Phone: [facility] 08-08-2023 09:08-0500 Diastolic blood pressure 76 mm[Hg] Dr. Temo Rodriguez Work Phone: [facility] 08-08-2023 09:08-0500 Heart rate 78 /min Dr. Temo Rodriguez Work Phone: [facility] 08-08-2023 09:08-0500 Respiratory rate 16 /min Dr. Temo Rodriguez Work Phone: [facility] 08-08-2023 09:08-0500 SaO2% (BldA) [Mass fraction] 97 % Dr. Temo Rodriguez Work Phone: [facility] 08-08-2023 09:08-0500 Systolic blood pressure 150 mm[Hg] Dr. Temo Rodriguez Work Phone: [facility] 07-31-2023 08:38-0500 Body weight 132.[address] Temo Rodriguez Work Phone: [facility] 07-18-2023 10:37-0500 Body height 177.[address] Temo Rodriguez Work Phone: [facility] 07-18-2023 10:37-0500 Body mass index (BMI) [Ratio] 42.6 kg/m2 Dr. Temo Rodriguez Work Phone: [facility] 07-18-2023 10:37-0500 Body weight 134.[address] Temo Rodriguez Work Phone: [facility] 07-18-2023 10:37-0500 Diastolic blood pressure 71 mm[Hg] Dr. Temo Rodriguez Work Phone: [facility] 07-18-2023 10:37-0500 Heart rate 61 /min Dr. Temo Rodriguez Work Phone: [facility] 07-18-2023 10:37-0500 Respiratory rate 18 /min Dr. Temo Rodriguez Work Phone: [facility] 07-18-2023 10:37-0500 SaO2% (BldA) [Mass fraction] 94 % Dr. Temo Rodriguez Work Phone: [facility] 07-18-2023 10:37-0500 Systolic blood pressure 133 mm[Hg] Dr. Temo Rodriguez Work Phone: [facility] 07-01-2023 08:08-0500 Body weight 130.[address] Temo Rodriguez Work Phone: [facility] 06-12-2023 11:50-0500 Body height 177.[address] Temo Rodriguez Work Phone: [facility] 06-12-2023 11:50-0500 Body weight 129.[address] Temo Rodriguez Work Phone: [facility] 05-01-2023 13:51-0500 Body mass index (BMI) [Ratio] 40.4 kg/m2 Dr. Temo Rodriguez Work Phone: [facility] 05-01-2023 13:11-0500 Body height 177.[address] Temo Rodriguez Work Phone: [facility] 05-01-2023 13:11-0500 Body weight 127.[address] Temo Rodriguez Work Phone: [facility] 05-01-2023 13:05-0500 Diastolic blood pressure 58 mm[Hg] Dr. Teom Rodriguez Work Phone: [facility] 05-01-2023 13:05-0500 Heart rate 80 /min Dr. Temo Rodriguez Work Phone: [facility] 05-01-2023 13:05-0500 Systolic blood pressure 115 mm[Hg] Dr. Temo Rodriguez Work Phone: [facility] 04-18-2023 10:00-0400 Body mass index (BMI) [Ratio] 40.4 kg/m2 Dr. Temo Rodriguez Work Phone: [facility] 04-18-2023 10:00-0400 Body weight 127.[address] Temo Rodriguez Work Phone: [facility] 04-18-2023 10:00-0400 Diastolic blood pressure 58 mm[Hg] Dr. Temo Rodriguez Work Phone: [facility] 04-18-2023 10:00-0400 Heart rate 80 /min Dr. Temo Rodriguez Work Phone: [facility] 04-18-2023 10:00-0400 Respiratory rate 18 /min Dr. Temo Rodriguez Work Phone: [facility] 04-18-2023 10:00-0400 Systolic blood pressure 115 mm[Hg] Dr. Temo Rodriguez Work Phone: [facility] 04-02-2023 11:59-0400 Body height 175.3 cm Jonathan De Leon CLINICAL PHARMACY COORDINATOR - TELECOM BILLING ANALYST Work Phone: [facility] 04-02-2023 11:59-0400 Body mass index (BMI) [Ratio] 43.33 kg/m2 Jonathan De Leon CLINICAL PHARMACY COORDINATOR - TELECOM BILLING ANALYST Work Phone: [facility] 04-02-2023 11:59-0400 Body weight 133.09 kg Jonathan De Leon CLINICAL PHARMACY COORDINATOR - TELECOM BILLING ANALYST Work Phone: [facility] 04-02-2023 11:59-0400 Diastolic blood pressure 76 mm[Hg] Jonathan De Leon CLINICAL PHARMACY COORDINATOR - TELECOM BILLING ANALYST Work Phone: [facility] 04-02-2023 11:59-0400 Heart rate 78 /min Jonathan De Leon CLINICAL PHARMACY COORDINATOR - TELECOM BILLING ANALYST Work Phone: [facility] 04-02-2023 11:59-0400 Systolic blood pressure 142 mm[Hg] Jonathan De Leon CLINICAL PHARMACY COORDINATOR - TELECOM BILLING ANALYST Work Phone: [facility] 03-28-2023 12:00-0400 Body temperature 98.29 [degF] Donya Childress MD Work Phone: [facility] [place] 03-28-2023 12:00-0400 Diastolic blood pressure 37 mm[Hg] Donya Childress MD Work Phone: [facility] 03-28-2023 12:00-0400 Heart rate 70 /min Donya Childress MD Work Phone: [facility] 03-28-2023 12:00-0400 Respiratory rate 20 /min Donya Childress MD Work Phone: [facility] 03-28-2023 12:00-0400 SaO2% (BldA) [Mass fraction] 97 % Donya Childress MD Work Phone: [facility] 03-28-2023 12:00-0400 Systolic blood pressure 115 mm[Hg] Donya Childress MD Work Phone: [facility] 03-28-2023 06:00-0400 Body mass index (BMI) [Ratio] 43.56 kg/m2 Donya Childress MD Work Phone: [facility] 03-28-2023 06:00-0400 Body weight 133.81 kg Donya Childress MD Work Phone: [facility] 03-22-2023 09:23-0400 Body height 175.3 cm Donya Childress MD Work Phone: [facility] 03-21-2023 12:07-0400 SaO2% (BldA) [Mass fraction] 98.6 % Donya Childress MD Work Phone: [facility] 02-27-2023 10:06-0400 Body height 175.3 cm Donya Childress MD Work Phone: [facility] [place] 02-27-2023 10:06-0400 Body mass index (BMI) [Ratio] 44.07 kg/m2 Donya Childress MD Work Phone: [facility] 02-27-2023 10:06-0400 Body temperature 97.11 [degF] Donya Childress MD Work Phone: [facility] 02-27-2023 10:06-0400 Body weight 135.35 kg Donya Childress MD Work Phone: [facility] 02-27-2023 10:06-0400 Diastolic blood pressure 76 mm[Hg] Donya Childress MD Work Phone: [facility] 02-27-2023 10:06-0400 Systolic blood pressure 158 mm[Hg] Donya Childress MD Work Phone: [facility] 02-12-2023 08:37-0400 Body height 177.[address] Temo Rodriguez Work Phone: [facility] 02-12-2023 08:37-0400 Body weight 136.[address] Temo Rordiguez Work Phone: [facility] 02-11-2023 08:48-0400 Body mass index (BMI) [Ratio] 43 kg/m2 Dr. Temo Rodriguez Work Phone: [facility] 01-07-2023 08:38-0400 Body height 177.[address] Temo Rodriguez Work Phone: [facility] 01-07-2023 08:38-0400 Body mass index (BMI) [Ratio] 43 kg/m2 Dr. Temo Rodriguez Work Phone: [facility] 01-07-2023 08:38-0400 Body weight 136.[address] Temo Rodriguez Work Phone: [facility] 01-07-2023 08:38-0400 Diastolic blood pressure 79 mm[Hg] Dr. Temo Rodriguez Work Phone: [facility] 01-07-2023 08:38-0400 Heart rate 64 /min Dr. Temo Rodriguez Work Phone: [facility] 01-07-2023 08:38-0400 Respiratory rate 18 /min Dr. Temo Rodriguez Work Phone: [facility] 01-07-2023 08:38-0400 SaO2% (BldA) [Mass fraction] 95 % Dr. Temo Rodriguez Work Phone: [facility] 01-07-2023 08:38-0400 Systolic blood pressure 136 mm[Hg] Dr. Temo Rodriguez Work Phone: [facility] Encounters Encounter Date Encounter Type Care Provider Facility Start: 04-01-2025 End: 04-01-2025 Patient encounter procedure Geovani Peterson DIRECTOR OF ADVERTISING SALES-C -[facility] Work Phone: Start: 04-01-2025 End: 04-01-[address] Temo Rodriguez DO Work Phone: -[facility] Start: 11-03-2024 End: 11-03-[address] Temo Rodriguez DO Work Phone: [facility] Work Phone: Start: 11-03-2024 End: 11-03-[address] Temo Rodriguez DO -Ultrasound [facility] Work Phone: Start: 11-03-2024 End: 11-03-2024 ambulatory Temo Rodriguez Facility:[facility] Start: 10-27-2024 Encounter for preprocedural cardiovascular examination Richardson Ivy [facility] Start: 09-30-2024 End: 09-30-2024 Patient encounter procedure Geovani Peterson DIRECTOR OF ADVERTISING SALES-C -[facility] Work Phone: Start: 09-30-2024 End: 09-30-2024 ambulatory Geovani Peterson Facility:[facility] Start: 09-23-2024 End: 09-23-[address] eTmo Rodriguez DO Work Phone: [facility] Work Phone: Start: 09-23-2024 End: 09-23-[address] Temo Rodriguez DO -Laboratory, [facility] Start: 09-23-2024 End: 09-23-2024 ambulatory Temo Rodriguez Facility:[facility] Start: 09-22-2024 Encounter for other preprocedural examination Temo Rodriguez [facility] Start: 08-26-2024 End: 08-26-[address] Temo Rodriguez DO Work Phone: [facility] Work Phone: Start: 08-26-2024 End: 08-26-[address] Temo Rodriguez DO -Radiology, [facility] Work Phone: Start: 08-26-2024 End: 08-26-2024 Patient encounter procedure Richardson Ivy DIRECTOR OF ADVERTISING SALES-Abigail -[facility] Work Phone: Start: 08-26-2024 End: 08-26-2024 Patient encounter status Richardson Ivy DIRECTOR OF ADVERTISING SALES-C [facility] Comment on above: Ear surgery Start: 08-26-2024 End: 08-26-2024 ambulatory Temo Michael Facility:[facility] Start: 08-26-2024 End: 08-26-2024 ambulatory Temo Michael Facility:[facility] Start: 08-21-2024 End: 08-21-[address] Temo Rodriguez DO Work Phone: [facility] Work Phone: Start: 08-21-2024 End: 08-21-[address] Temo Rodriguez DO -Laboratory Work Phone: Start: 08-21-2024 End: 08-21-2024 ambulatory Temo Michael Facility:[facility] Start: 06-05-2024 End: 06-05-2024 Patient encounter procedure Gabino Walters [facility] Work Phone: Start: 06-05-2024 End: 06-05-2024 ambulatory Temo [facility] Facility:[facility] Start: 06-03-2024 End: 06-03-2024 Patient encounter procedure Geovani Peterson DIRECTOR OF ADVERTISING SALES-C -[facility] Work Phone: Start: 06-03-2024 End: 06-03-2024 ambulatory Geovani Peterson Facility:[facility] Start: 04-07-2024 End: 04-07-2024 ambulatory Temo Rodriguez Facility:[facility] Start: 10-17-2023 End: 10-22-[address] Temo Rodriguez Work Phone: [facility] Work Phone: Start: 10-17-2023 End: 10-22-[address] [facility] Start: 10-17-2023 End: 10-17-[address] Temo Rodriguez Work Phone: [facility] Work Phone: Start: 08-12-2023 End: 08-22-[address] Temo Rodriguez Work Phone: [facility] Work Phone: Start: 08-12-2023 End: 08-22-[address] Temo Rodriguez Work Phone: [facility] Work Phone: Start: 08-08-2023 End: 08-08-[address] Temo Rodriguez Work Phone: [facility] Work Phone: Start: 07-24-2023 End: 07-24-[address] Temo Rodriguez Work Phone: [facility] Work Phone: Start: 07-24-2023 End: 07-24-[address] Temo Rodriguez Work Phone: [facility] Work Phone: Start: 07-18-2023 End: 07-18-[address] Temo Rodriguez Work Phone: [facility] Work Phone: Start: 07-17-[address] Temo Rodriguez Work Phone: [facility] Work Phone: Start: 07-15-2023 End: 07-15-[address] Temo Rodriguez Work Phone: [facility] Work Phone: Start: 07-15-2023 End: 07-15-[address] Temo Rodriguez Work Phone: [facility] Start: 06-21-2023 End: 06-23-[address] Temo Rodriguez Work Phone: [facility] Work Phone: Start: 06-21-2023 End: 06-23-[address] Temo Rodriguez Work Phone: [facility] Work Phone: Start: 05-27-2023 End: 06-23-[address] Temo Rodriguez Work Phone: [facility] Work Phone: Start: 05-27-2023 End: 06-23-[address] Temo Rodriguez Work Phone: [facility] Work Phone: Start: 05-22-2023 End: 05-23-[address] Temo Rodriguez Work Phone: [facility] Work Phone: Start: 05-22-2023 End: 05-23-[address] Temo Rodriguez Work Phone: [facility] Work Phone: Start: 05-01-2023 End: 05-01-[address] Temo Rodriguez Work Phone: [facility] Work Phone: Start: 05-01-2023 End: 05-01-[address] Temo Rodriguez Work Phone: [facility] Work Phone: Start: 05-01-2023 End: 05-01-[address] Temo Rodriguez Work Phone: [facility] Work Phone: Start: 05-01-2023 End: 05-01-[address] Temo Rodriguez Work Phone: [facility] [place] [facility] Start: 04-18-2023 End: 04-18-[address] Temo Rodriguez Work Phone: [facility] Work Phone: Start: 04-15-2023 End: 04-15-2023 Postop follow up visit related to original px Jonathan R Haley CLINICAL PHARMACY COORDINATOR - TELECOM BILLING ANALYST Work Phone: [facility] Comment on above: CAD in [place] artery (Primary Dx); Mixed hyperlipidemia; Hypertension, unspecified type; Elevated hemidiaphragm Start: 04-15-2023 End: 04-16-2023 ambulatory [facility] Start: 04-09-2023 End: 04-09-[address] Temo Rodriguez Work Phone: [facility] Work Phone: Start: 04-09-2023 End: 04-09-[address] Temo Rodriguez Work Phone: [facility] [place] [facility] Start: 04-02-2023 End: 04-02-2023 ambulatory [facility] Start: 04-02-2023 End: 04-02-2023 Postop follow up visit related to original px Jontahan R Haley CLINICAL PHARMACY COORDINATOR - TELECOM BILLING ANALYST Work Phone: [facility] Comment on above: CAD in [place] artery (Primary Dx); Hypertension, unspecified type; Elevated hemidiaphragm; Obesity, Class III, BMI 40-49.9 (morbid obesity) (HCC); Mixed hyperlipidemia Start: 03-29-2023 Telephone encounter Malini Mccormick RN [facility] Comment on above: Hyperglycemia Start: 03-21-2023 End: 03-28-2023 Evaluation and management of inpatient [facility] Start: 03-21-2023 End: 03-28-2023 Evaluation and management of inpatient Donya Childress MD Work Phone: [facility] Start: 03-13-2023 Non-patient / Non-visit Dr. Ashley Rodriguez Work Phone: [facility] Start: 03-13-2023 End: 03-13-[address] Temo Rodriguez Work Phone: [facility] Work Phone: Start: 03-13-2023 End: 03-13-[address] Temo Rodriguez Work Phone: [facility] Work Phone: Start: 03-11-2023 End: 03-12-2023 ambulatory [facility] Start: 03-11-2023 End: 03-11-2023 ambulatory [facility] Start: 03-11-2023 End: 03-11-2023 Encounter for other preprocedural examination [facility] Start: 03-11-2023 End: 03-11-2023 Subsequent hospital visit by physician [facility] Xr Exam Room 1 [facility] Comment on above: Arrived Start: 03-11-2023 End: 03-11-2023 ambulatory [facility] Start: 03-11-2023 End: 03-11-2023 Patient encounter status Donya Childress MD Work Phone: [facility] Work Phone: Start: 03-11-2023 End: 03-11-2023 Subsequent hospital visit by physician Donya Childress MD Work Phone: [facility] Comment on above: Encounter for other preprocedural examination; Other disorders of arteries, arterioles and capillaries in diseases classified elsewhere (HCC); 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) Start: 03-08-2023 Telephone encounter Malini Dunn [facility] Comment on above: Patient Education (P re op teaching) Start: 02-28-2023 Admission to [facility] surgery center Jonathan De Leon CLINICAL PHARMACY COORDINATOR - TELECOM BILLING ANALYST Work Phone: [facility] Comment on above: CAD in [place] artery (Primary Dx) Start: 02-28-2023 ambulatory Jonathan bañuelos CLINICAL PHARMACY COORDINATOR - TELECOM BILLING ANALYST Work Phone: [facility] Start: 02-27-2023 Telephone encounter Donya dunn MD Work Phone: [facility] Comment on above: Surgery Scheduling Start: 02-27-2023 End: 02-27-2023 ambulatory DONYA CHILDRESS [facility] Start: 02-27-2023 End: 02-27-2023 Office consultation new/estab patient 80 min Donya Childress MD Work Phone: [facility] Comment on above: 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 Ashley Rodriguez Work Phone: [facility] Start: 02-12-2023 End: 02-12-2023 Admission to same day surgery center Dr. Temo Rodriguez Work Phone: [facility]/Special Procedures Work Phone: Start: 02-12-2023 End: 02-12-[address] Temo Rodriguez Work Phone: [facility] Work Phone: Start: 02-08-2023 Non-patient / Non-visit Dr. Ashley Rodriguez Work Phone: [facility] Start: 01-29-2023 Non-patient / Non-visit Dr. Ashley Rodriguez Work Phone: [facility] Work Phone: Start: 01-25-2023 Non-patient / Non-visit Dr. Ashley Rodriguez Work Phone: [facility] Start: 01-25-2023 End: 01-25-[address] Temo Rodriguez Work Phone: [facility] Work Phone: Start: 01-25-2023 End: 01-25-[address] [facility] Start: 01-07-2023 End: 01-07-[address] Temo Rodriguez Work Phone: [facility] Work Phone: Start: 06-26-2022 End: 06-26-2022 ambulatory [facility] Work Phone: Start: 06-26-2022 End: 06-26-2022 Patient encounter procedure [facility] Procedures Date Procedure Procedure Detail Performing Clinician Start: 11-03-2024 Ultrasound of scrotu m with Doppler and color flow imaging Dr. Temo Rodriguez DO Work Phone: Start: 08-26-2024 X-ray of lumbosacral spine Dr. Temo Rodriguez DO Work Phone: Start: 08-26-2024 Evaluation of diagno stic study results Dr. Temo Rodriguez DO Work Phone: Start: 03-28-2023 End: 03-28-2023 Basic metabolic panel calcium total Jonathan De Leon CLINICAL PHARMACY COORDINATOR - TELECOM BILLING ANALYST Work Phone: Start: 03-28-2023 Glucose quantitative blood xcpt reagent strip Donya Childress MD Work Phone: Start: 03-28-2023 Basic metabolic pane l calcium total Nya Dey Orville CLINICAL PHARMACY COORDINATOR - TELECOM BILLING ANALYST Work Phone: Start: 03-28-2023 Radiologic exam ches t single view Nya Dey [place] CLINICAL PHARMACY COORDINATOR - TELECOM BILLING ANALYST Work Phone: Start: 03-27-2023 Bacteria identified in Blood by Culture Kuldeep Alvarado MD Work Phone: Start: 03-27-2023 Glucose quantitative blood xcpt reagent strip Donya Childress MD Work Phone: Start: 03-27-2023 Smr prim src gram/gi emsa stain bct fungi/cell Kuldeep Alvarado MD Work Phone: Start: 03-27-2023 Glucose quantitative blood xcpt reagent strip Donya Childress MD Work Phone: Start: 03-27-2023 Glucose quantitative blood xcpt reagent strip Donya Childress MD Work Phone: Start: 03-27-2023 Glucose quantitative blood xcpt reagent strip Donya Childress MD Work Phone: Start: 03-27-2023 End: 03-27-2023 Basic metabolic panel calcium total Nya Dey [place] CLINICAL PHARMACY COORDINATOR - TELECOM BILLING ANALYST Work Phone: Start: 03-27-2023 Radiologic exam ches t single view Nyabetty Dey [place] CLINICAL PHARMACY COORDINATOR - TELECOM BILLING ANALYST Work Phone: Start: 03-26-2023 Glucose quantitative blood xcpt reagent strip Donya Chlidress MD Work Phone: Start: 03-26-2023 Glucose quantitative blood xcpt reagent strip Nya PetersMichael Jacinto CLINICAL PHARMACY COORDINATOR - TELECOM BILLING ANALYST Work Phone: Start: 03-26-2023 Glucose quantitative blood xcpt reagent strip Donya Childress MD Work Phone: Start: 03-26-2023 Radiologic exam ches t single view Nya Burnettapurva CLINICAL PHARMACY COORDINATOR - TELECOM BILLING ANALYST Work Phone: Start: 03-26-2023 Radiologic exam abdo men 1 view Nya LorraineMichael Jacinto CLINICAL PHARMACY COORDINATOR - TELECOM BILLING ANALYST Work Phone: Start: 03-26-2023 End: 03-26-2023 Basic metabolic panel calcium total Nya Tiburcio Burnettapurva CLINICAL PHARMACY COORDINATOR - TELECOM BILLING ANALYST Work Phone: Start: 03-26-2023 Manual differential performed [Presence] in Blood Kuldeep Alvarado MD Work Phone: Start: 03-26-2023 End: 03-26-2023 Bilirubin direct Kuldeep Alvarado MD Work Phone: Start: 03-26-2023 POCT GLUCOSE METER UNSOLICITED RESULTS Donya Childress MD Work Phone: Start: 03-26-2023 Comprehensive metabo lic panel Nya LorraineMichael Jacinto CLINICAL PHARMACY COORDINATOR - TELECOM BILLING ANALYST Work Phone: Start: 03-25-2023 Glucose quantitative blood xcpt reagent strip Donya Childress MD Work Phone: Start: 03-25-2023 Glucose quantitative blood xcpt reagent strip Donya Childress MD Work Phone: Start: 03-25-2023 Glucose quantitative blood xcpt reagent strip Donya Childress MD Work Phone: Start: 03-25-2023 Glucose quantitative blood xcpt reagent strip Donya Childress MD Work Phone: Start: 03-25-2023 Radiologic exam ches t single view Nya Tiburcio [place]ville CLINICAL PHARMACY COORDINATOR - TELECOM BILLING ANALYST Work Phone: Start: 03-25-2023 Basic metabolic pane l calcium total Nya Tiburcio [place] CLINICAL PHARMACY COORDINATOR - TELECOM BILLING ANALYST Work Phone: Start: 03-24-2023 Glucose quantitative blood xcpt reagent strip Donya Childress MD Work Phone: Start: 03-24-2023 Glucose quantitative blood xcpt reagent strip Donya Childress MD Work Phone: Start: 03-24-2023 Glucose quantitative blood xcpt reagent strip Donya Childress MD Work Phone: Start: 03-24-2023 Radiologic exam ches t single view Nya Jacinto CLINICAL PHARMACY COORDINATOR - TELECOM BILLING ANALYST Work Phone: Start: 03-24-2023 Basic metabolic pane l calcium total Nya Jacinto CLINICAL PHARMACY COORDINATOR - TELECOM BILLING ANALYST Work Phone: Start: 03-23-2023 Glucose quantitative blood xcpt reagent strip Donya Childress MD Work Phone: Start: 03-23-2023 Glucose quantitative blood xcpt reagent strip Donya Childress MD Work Phone: Start: 03-23-2023 Glucose quantitative blood xcpt reagent strip Donya Childress MD Work Phone: Start: 03-23-2023 Glucose quantitative blood xcpt reagent strip Donya Childress MD Work Phone: Start: 03-23-2023 Glucose quantitative blood xcpt reagent strip Donya Childress MD Work Phone: Start: 03-23-2023 Radiologic exam ches t single view Nya Jacinto CLINICAL PHARMACY COORDINATOR - TELECOM BILLING ANALYST Work Phone: Start: 03-23-2023 Glucose quantitative blood xcpt reagent strip Donya Childress MD Work Phone: Start: 03-23-2023 End: 03-23-2023 Calcium ionized Nya Jacinto APR N - TELECOM BILLING ANALYST Work Phone: Start: 03-23-2023 End: 03-23-2023 Basic metabolic panel calcium total Nya Jacinto CLINICAL PHARMACY COORDINATOR - TELECOM BILLING ANALYST Work Phone: Start: 03-22-2023 End: 03-22-2023 Glucose quantitative blood xcpt reagent strip Donya Childress MD Work Phone: Start: 03-22-2023 Glucose quantitative blood xcpt reagent strip Donya Childress MD Work Phone: Start: 03-22-2023 Glucose quantitative blood xcpt reagent strip Donya Childress MD Work Phone: Start: 03-22-2023 Glucose quantitative blood xcpt reagent strip Donya Childress MD Work Phone: Start: 03-22-2023 End: 03-22-2023 Glucose quantitative blood xcpt reagent strip Donya Childress MD Work Phone: Start: 03-22-2023 Glucose quantitative blood xcpt reagent strip Donya Childrses MD Work Phone: Start: 03-22-2023 Glucose quantitative blood xcpt reagent strip Donya Childress MD Work Phone: Start: 03-22-2023 Glucose quantitative blood xcpt reagent strip Donya Childress MD Work Phone: Start: 03-22-2023 Glucose quantitative blood xcpt reagent strip Donya Childress MD Work Phone: Start: 03-22-2023 End: 03-22-2023 Glucose quantitative blood xcpt reagent strip Donya Childress MD Work Phone: Start: 03-22-2023 Ecg routine ecg w/le ast 12 lds trcg only w/o i&r Nya Jacinto APRN - TELECOM BILLING ANALYST Work Phone: Start: 03-22-2023 Glucose quantitative blood xcpt reagent strip Donya Childress MD Work Phone: Start: 03-22-2023 Radiologic exam ches t single view Nya Jacinto APRN - TELECOM BILLING ANALYST Work Phone: Start: 03-22-2023 End: 03-22-2023 Glucose quantitative blood xcpt reagent strip Donya Childress MD Work Phone: Start: 03-22-2023 End: 03-22-2023 Glucose quantitative blood xcpt reagent strip Donya Childress MD Work Phone: Start: 03-22-2023 End: 03-22-2023 Basic metabolic panel calcium total Nya Jacinto CLINICAL PHARMACY COORDINATOR - [facility] Work Phone: Start: 03-22-2023 Glucose quantitative blood xcpt reagent strip Donya Childress MD Work Phone: Start: 03-21-2023 Glucose quantitative blood xcpt reagent strip Donya Childress MD Work Phone: Start: 03-21-2023 End: 03-21-2023 Glucose quantitative blood xcpt reagent strip Donya Childress MD Work Phone: Start: 03-21-2023 Glucose quantitative blood xcpt reagent strip Donya Childress MD Work Phone: Start: 03-21-2023 Glucose quantitative blood xcpt reagent strip Donya Childress MD Work Phone: Start: 03-21-2023 End: 03-21-2023 Glucose quantitative blood xcpt reagent strip Donya Childress MD Work Phone: Start: 03-21-2023 End: 03-21-2023 Glucose quantitative blood xcpt reagent strip Donya Chidlress MD Work Phone: Start: 03-21-2023 [facility] Work Phone: Start: 03-21-2023 Radiologic exam ches t single view Nya Jacinto CLINICAL PHARMACY COORDINATOR [facility] Work Phone: Start: 03-21-2023 Glucose quantitative blood xcpt reagent strip Donya Childress MD Work Phone: Start: 03-21-2023 History of coronary artery bypass grafting History of coronary artery bypass surgery Richardson Ivy DIRECTOR OF ADVERTISING SALES-C Comment on above: PIERSON-LAD, SVG-OM, SV G-rPDA 03/21/[address] Childress; Start: 03-21-2023 Echo transesophag r- t 2d w/prb img acquisj i&r Donya Childress MD Work Phone: Start: 03-21-2023 Glucose quantitative blood xcpt reagent strip Donya Childress MD Work Phone: Start: 03-21-2023 Ecg routine ecg w/le ast 12 lds trcg only w/o i&r Nya Jacinto CLINICAL PHARMACY COORDINATOR - TELECOM BILLING ANALYST Work Phone: Start: 03-21-2023 Blood gases any combination ph pco2 po2 co2 hco3 Donya Childress MD Work Phone: Start: 03-21-2023 End: 03-21-2023 Basic metabolic panel calcium total Donya Childress MD Work Phone: Start: 03-21-2023 End: 03-21-2023 Cabg w/arterial graft three arterial grafts Donya Childress MD Work Phone: Start: 03-21-2023 End: 03-21-2023 Echo transesophag r-t 2d w/prb img acquisj i&r Donya Childress MD Work Phone: Start: 03-21-2023 Glucose quantitative blood xcpt reagent strip Donya Childress MD Work Phone: Start: 03-13-2023 CT of chest without contrast Dr. Temo Rodriguez Work Phone: Start: 03-11-2023 Antibody screen DONYA DOTY Comment on above: Performed By: #### L [id number], [id number] #### Mulcher Operator: TONI NAVA ([phone]) [facility]) [address] [place] [address] Start: 03-11-2023 Radiologic exam ches t 2 views Sugey Rae CLINICAL PHARMACY COORDINATOR - TELECOM BILLING ANALYST Work Phone: Start: 03-11-2023 Dup-scan xtr veins complete bilateral study Donya Childress MD Work Phone: Start: 02-08-2023 Plain chest X-ray Dr. Conrado Rodriguez Work Phone: Start: 01-25-2023 Radionuclide imaging of perfusion of myocardium under exercise stress Dr. Temo Rodriguez Work Phone: Start: 11-25-2020 Colonoscopy Donya dunn MD Work Phone: Start: 06-24-2004 History of placement of stent for coronary artery disease History of coronary artery stent placement Richardson Ivy DIRECTOR OF ADVERTISING [employer] Comment on above: SUZETTE-RCA 2005. At [facility] Plan of Treatment Date Care Activity Detail Author Start: 11-25-2030 Screening for malignant neoplasm of colon [facility] Start: 03-11-2024 Hemoglobin A1c measurement [facility] Start: 11-24-2023 DTaP/Tdap/Td Vaccines (2 - Td or Tdap) DTaP/Tdap/Td Vaccines (2 - Td or Tdap) [facility] Start: 11-24-2023 [facility] Start: 05-01-2023 Patient referral to dietitian [facility] Start: 04-18-2023 Patient referral [facility] Work Phone: Start: 04-02-2023 End: 04-02-2023 ambulatory [facility] Start: 04-02-2023 End: 04-02-2023 Patient encounter procedure 04/02/2023 12:00 PM EDT Office Visit [facility] [address] [place] [id number] Jonathan De Leon, CLINICAL PHARMACY COORDINATOR - TELECOM BILLING ANALYST [address] [place], [place] [id number] [facility] Start: 03-21-2023 End: 03-21-2023 Admission to same day surgery center 03/21/2023 7:00 AM EDT - 03/21/2023 12:00 PM EDT Surgery [facility] MAIN OR [address] [place] [address] Donya Childress MD [address] [place], [place] [id number] CORONARY ARTERY BYPASS GRAFT, TRANSESOPHAGEAL ECHOCARDIOGRAM [61412 (CPT )] [facility] Comment on above: CORONARY ARTERY BYPASS GRAFT, TRANSESOPH AGEAL ECHOCARDIOGRAM [63578 (CPT )] Start: 03-21-2023 End: 03-21-2023 Anesthesia consultation 03/21/2023 7:00 AM EDT Anesthesia Event [facility] [address] [place] [id number] Sugey Rae, CLINICAL PHARMACY COORDINATOR - TELECOM BILLING ANALYST [address] [place] [id number] [facility] Start: 03-21-2023 End: 03-21-2023 Cabg w/arterial graft three arterial grafts CABG X3 ARTERIAL GRAFTS Atherosclerotic heart disease of [place] coronary artery without angina pectoris 03/21/2023 7:00 AM EDT [facility] Operating Room Start: 03-21-2023 End: 03-21-2023 Echo transesophag r-t 2d w/prb img acquisj i&r Echocardiography transesophageal real-time Atherosclerotic heart disease of [place] coronary artery without angina pectoris 03/21/2023 7:[address] [facility] Operating Room Start: 03-21-2023 Subsequent hospital visit by physician 03/21/2023 7:00 AM EDT Hospital Encounter [facility] [address] [place] [address] Donya Childress MD [address] [place] [address] [address] [place] [address] [facility] Start: 03-11-2023 End: 03-11-2023 Admission to establishment [facility] Pre-Admit Testing Start: 03-11-2023 End: 03-11-2023 Patient encounter procedure [facility] [address] [facility] Start: 02-22-2023 COVID-19 Vaccine ( season) COVID-19 Vaccine ( season) [facility] Start: 02-22-2023 Influenza vaccination Influenza Vaccine (#1) [facility] Start: 02-22-2023 [facility] Start: 02-12-2023 Patient referral [facility] Work Phone: Start: 02-12-2023 Patient discharge [facility] Start: 08-03-2022 COVID-19 Vaccine (6 - Moderna series) COVID-19 Vaccine (6 - Moderna series) [facility] Start: 08-03-2022 [facility] Start: 01-18-2014 Zoster Vaccines (2 of 3) Zoster Vaccines (2 of 3) [facility] Start: 01-18-2014 [facility] Start: 2013 Hepatitis B Vaccines (1 of 3 - Risk 3-dose series) Hepatitis B Vaccines (1 of 3 - Risk 3-dose series) [facility] Start: 2013 RSV Immunization aged 60 or older (1 - 1-dose 60+ series) RSV Immunization aged 60 or older (1 - 1-dose 60+ series) [facility] Start: 2013 [facility] Start: 10-05-1971 Hepatitis C screening [facility] Start: 1965 Depression Screening Depression Screening [facility] Start: 1965 [facility] Start: 10-05-1963 Diabetic foot examination [facility] Start: 10-05-1963 Glaucoma screening [facility] Start: 10-05-1963 Preventive dental service [facility] Start: 1955 Hemoglobin A1c measurement Diabetes: Hemoglobin A1C [facility] Start: 1955 Lipid panel [facility] Start: 1955 Medicare Annual Wellness (AWV) Medicare Annual Wellness (AWV) [facility] Start: 1955 Screening for malignant neoplasm of colon [facility] Start: 1955 [facility] Bacteria identified in Blood by Culture [facility] Bacteria identified in Lower respiratory specimen by Aerobe culture [facility] Work Phone: Hemoglobin A1c/Hemoglobin.total in Blood [facility] Patient referral [facility] Work Phone: End: 03-21-2023 Prothrombin time (PT) in Blood by Coagulation assay [facility] Work Phone: Immunizations Immunization Date Immunization Notes Care Provider Fa cility 10-21-2024 Covid (Moderna) Dr. Temo saenz DO Work Phone: [facility] 03-21-2022 influenza virus vaccine, unspecified formulation Donya Childress MD Work Phone: [facility] Payers Date Payer Category Payer Self-pay [id number] 2023 Self-pay [id number] 2021 Unknown [id number] 2021 Unknown [id number] 2018 Medicare [id number] 2018 Medicare [id number] Private Health Insurance [id number] Unknown [id number] 2.16.8 [id number] Unknown [id number] 2.16.8 [id number] Unknown [id number] 2.16.8 [id number] Unknown [id number] 2.16.8 [id number] Unknown [id number] 2.16.8 [id number] Unknown [id number] 2.16.8 [id number] Unknown [id number] 2.16.8 [id number] Unknown [id number] 2.16.8 [id number] Unknown [id number] 2.16.8 [id number] Unknown [id number] 2.16.8 [id number] Unknown [id number] 2.16.8 [id number] Social History Date Type Detail Facility Start: 01-09-2022 End: 08-08-2023 Tobacco smoking status NHIS Unknown if ever smoked [facility] Start: 1955 Sex Assigned At Male [facility] Start: 02-27-2023 End: 08-08-2023 Tobacco smoking status NHIS Never smoked tobacco [facility] Start: 02-27-2023 Tobacco use and exposure Smokeless tobacco non-user [facility] Start: 02-27-2023 End: 03-22-2023 Alcohol intake Ex-drinker (finding) [facility] Start: 02-27-2023 End: 04-15-2023 History of Social function [facility] Start: 02-27-2023 End: 04-15-2023 Tobacco use panel [facility] Start: 02-20-2023 Gender identity Identifies as male gender (finding) [facility] Start: 02-17-2023 End: 03-11-2023 Exposure to SARS-CoV-2 (event) Not sure [facility] Start: 09-03-2024 End: 09-26-2024 Sex Male (finding) [facility] Medical Equipment Procedure Code Equipment Code Equipment Origin al Text Equipment Identifier Dates Blood Sugar Diag nostic (Accu-Chek Lisa Plus Test Strp) strip Start: 08-10-2018 Lancets (Accu-Ch ek Multiclix Lancet) misc Start: 08-10-2018 Pen Needle, Diab etic (Comfort Ez Pen [place]) 32 gauge x 1/4 needle Start: 12-27-2017 Blood Sugar Diag nostic (Accu-Chek [place] Plus Test Strp) strip Start: 08-05-2018 End: 08-07-2018 Blood Sugar Diag nostic (Accu-Chek Lisa Plus Test Strp) strip Start: 08-07-2018 End: 08-07-2018 Blood Sugar Diag nostic (Accu-Chek Lisa Plus Test Strp) strip Start: 08-07-2018 End: 08-10-2018 Blood Sugar Diag nostic (Onetouch Ultra Test) strip Start: 06-06-2017 End: 08-04-2018 Blood Sugar Diag nostic (Onetouch Ultra Test) strip Start: 08-04-2018 End: 08-05-2018 Lancets (Accu-Ch ek Multiclix Lancet) misc Start: 08-05-2018 End: 08-10-2018 Pen Needle, Diab etic (Comfort Ez Pen [place]) 32 gauge x 1/4 needle Start: 06-06-2017 End: 12-27-2017 Blood Sugar Diag nostic (Accu-Chek Lisa Plus Test Strp) strip Start: 08-10-2018 Lancets (Accu-Ch ek Multiclix Lancet) misc Start: 08-10-2018 Pen Needle, Diab etic (Comfort Ez Pen [place]) 32 gauge x 1/4 needle Start: 12-27-2017 Blood Sugar Diag nostic (Accu-Chek Lisa Plus Test Strp) strip Start: 08-05-2018 End: 08-07-2018 Blood Sugar Diag nostic (Accu-Chek Lisa Plus Test Strp) strip Start: 08-07-2018 End: 08-07-2018 Blood Sugar Diag nostic (Accu-Chek Lisa Plus Test Strp) strip Start: 08-07-2018 End: 08-10-2018 Blood Sugar Diag nostic (Onetouch Ultra Test) strip Start: 06-06-2017 End: 08-04-2018 Blood Sugar Diag nostic (Onetouch Ultra Test) strip Start: 08-04-2018 End: 08-05-2018 Lancets (Accu-Ch ek Multiclix Lancet) misc Start: 08-05-2018 End: 08-10-2018 Pen Needle, Diab etic (Comfort Ez Pen [place]) 32 gauge x 1/4 needle Start: 06-06-2017 End: 12-27-2017 Blood Sugar Diag nostic (Accu-Chek Lisa Plus Test Strp) strip Start: 08-10-2018 Lancets (Accu-Ch ek Multiclix Lancet) misc Start: 08-10-2018 Pen Needle, Diab etic (Comfort Ez Pen [place]) 32 gauge x 1/4 needle Start: 12-27-2017 Blood Sugar Diag nostic (Accu-Chek Lisa Plus Test Strp) strip Start: 08-05-2018 End: 08-07-2018 Blood Sugar Diag nostic (Accu-Chek Lisa Plus Test Strp) strip Start: 08-07-2018 End: 08-07-2018 Blood Sugar Diag nostic (Accu-Chek Lisa Plus Test Strp) strip Start: 08-07-2018 End: 08-10-2018 Blood Sugar Diag nostic (Onetouch Ultra Test) strip Start: 06-06-2017 End: 08-04-2018 Blood Sugar Diag nostic (Onetouch Ultra Test) strip Start: 08-04-2018 End: 08-05-2018 Lancets (Accu-Ch ek Multiclix Lancet) misc Start: 08-05-2018 End: 08-10-2018 Pen Needle, Diab etic (Comfort Ez Pen [place]) 32 gauge x 1/4 needle Start: 06-06-2017 End: 12-27-2017 Blood Sugar Diag nostic (Accu-Chek Lisa Plus Test Strp) strip Start: 08-10-2018 Lancets (Accu-Ch ek Multiclix Lancet) misc Start: 08-10-2018 Pen Needle, Diab etic (Comfort Ez Pen [place]) 32 gauge x 1/4 needle Start: 12-27-2017 Blood Sugar Diag nostic (Accu-Chek Lisa Plus Test Strp) strip Start: 08-05-2018 End: 08-07-2018 Blood Sugar Diag nostic (Accu-Chek Lisa Plus Test Strp) strip Start: 08-07-2018 End: 08-07-2018 Blood Sugar Diag nostic (Accu-Chek Lisa Plus Test Strp) strip Start: 08-07-2018 End: 08-10-2018 Blood Sugar Diag nostic (Onetouch Ultra Test) strip Start: 06-06-2017 End: 08-04-2018 Blood Sugar Diag nostic (Onetouch Ultra Test) strip Start: 08-04-2018 End: 08-05-2018 Lancets (Accu-Ch ek Multiclix Lancet) misc Start: 08-05-2018 End: 08-10-2018 Pen Needle, Diab etic (Comfort Ez Pen [place]) 32 gauge x 1/4 needle Start: 06-06-2017 End: 12-27-2017 [id number] Start: 03-21-2023 0.01-3.3 mcg/kg/ min 136 kg (1.275-420.75 mL/hr, rounded to 1.28-420.75 mL/hr), IntraVENous, Continuous PRN, Initiate if Cardiac Index above 2.0; SBP less than 90 mmHg or MAP less than 65 mmHg; and PAD above 18, Starting on Sophie 03/21/23 at 1222, Recovery & On Unit, Infuse via central line. If Titrate Infusion? is No: Disregard instructions below. If Titrate infusion? is Yes: Titrate in increments of 0.02 mcg/kg/min no faster than every 5 minutes to goal. When approaching therapeutic goal or weaning off, smaller titration increments of 0.01 mcg/kg/min no faster than every 5 minutes may be used to maintain goal. , Goal Maintain SBP greater than 90 and less than 130 Goal Maintain MAP greater than 65 and less than 80, Titrate Infusion: Yes, Infusion Dose: Other, Infusion Dose: 0.01 mcg/kg/min, Goal of Therapy is: MAP great than 65 mmHg, SBP greater than 90 mmHg, Contact Provider if: Patient is receiving the maximum dose and is not achieving the goal of therapy [id number] Start: 03-21-2023 End: 03-23-2023 Use as instructe d 5 times daily [id number] Start: 03-28-2023 Blood Sugar Diag nostic (Accu-Chek Lisa Plus Test Strp) strip Start: 08-10-2018 Lancets (Accu-Ch ek Multiclix Lancet) misc Start: 08-10-2018 Pen Needle, Diab etic (Comfort Ez Pen [place]) 32 gauge x 1/4 needle Start: 12-27-2017 Blood Sugar Diag nostic (Accu-Chek Lisa Plus Test Strp) strip Start: 08-05-2018 End: 08-07-2018 Blood Sugar Diag nostic (Accu-Chek Lisa Plus Test Strp) strip Start: 08-07-2018 End: 08-07-2018 Blood Sugar Diag nostic (Accu-Chek Lisa Plus Test Strp) strip Start: 08-07-2018 End: 08-10-2018 Blood Sugar Diag nostic (Onetouch Ultra Test) strip Start: 06-06-2017 End: 08-04-2018 Blood Sugar Diag nostic (Onetouch Ultra Test) strip Start: 08-04-2018 End: 08-05-2018 Lancets (Accu-Ch ek Multiclix Lancet) misc Start: 08-05-2018 End: 08-10-2018 Pen Needle, Diab etic (Comfort Ez Pen [place]) 32 gauge x 1/4 needle Start: 06-06-2017 End: 12-27-2017 Blood Sugar Diag nostic (Accu-Chek Lisa Plus Test Strp) strip Start: 08-10-2018 Lancets (Accu-Ch ek Multiclix Lancet) misc Start: 08-10-2018 Pen Needle, Diab etic (Comfort Ez Pen [place]) 32 gauge x 1/4 needle Start: 12-27-2017 Blood Sugar Diag nostic (Accu-Chek Lisa Plus Test Strp) strip Start: 08-05-2018 End: 08-07-2018 Blood Sugar Diag nostic (Accu-Chek Lisa Plus Test Strp) strip Start: 08-07-2018 End: 08-07-2018 Blood Sugar Diag nostic (Accu-Chek Lisa Plus Test Strp) strip Start: 08-07-2018 End: 08-10-2018 Blood Sugar Diag nostic (Onetouch Ultra Test) strip Start: 06-06-2017 End: 08-04-2018 Blood Sugar Diag nostic (Onetouch Ultra Test) strip Start: 08-04-2018 End: 08-05-2018 Lancets (Accu-Ch ek Multiclix Lancet) misc Start: 08-05-2018 End: 08-10-2018 Pen Needle, Diab etic (Comfort Ez Pen [place]) 32 gauge x 1/4 needle Start: 06-06-2017 End: 12-27-2017 Blood Sugar Diag nostic (Accu-Chek Lisa Plus Test Strp) strip Start: 08-10-2018 Lancets (Accu-Ch ek Multiclix Lancet) misc Start: 08-10-2018 Pen Needle, Diab etic (Comfort Ez Pen [place]) 32 gauge x 1/4 needle Start: 12-27-2017 Blood Sugar Diag nostic (Accu-Chek Lisa Plus Test Strp) strip Start: 08-05-2018 End: 08-07-2018 Blood Sugar Diag nostic (Accu-Chek Lisa Plus Test Strp) strip Start: 08-07-2018 End: 08-07-2018 Blood Sugar Diag nostic (Accu-Chek Lisa Plus Test Strp) strip Start: 08-07-2018 End: 08-10-2018 Blood Sugar Diag nostic (Onetouch Ultra Test) strip Start: 06-06-2017 End: 08-04-2018 Blood Sugar Diag nostic (Onetouch Ultra Test) strip Start: 08-04-2018 End: 08-05-2018 Lancets (Accu-Ch ek Multiclix Lancet) misc Start: 08-05-2018 End: 08-10-2018 Pen Needle, Diab etic (Comfort Ez Pen [place]) 32 gauge x 1/4 needle Start: 06-06-2017 End: 12-27-2017 Blood Sugar Diag nostic (Accu-Chek Lisa Plus Test Strp) strip Start: 08-10-2018 Lancets (Accu-Ch ek Multiclix Lancet) misc Start: 08-10-2018 Pen Needle, Diab etic (Comfort Ez Pen [place]) 32 gauge x 1/4 needle Start: 12-27-2017 Blood Sugar Diag nostic (Accu-Chek Lisa Plus Test Strp) strip Start: 08-05-2018 End: 08-07-2018 Blood Sugar Diag nostic (Accu-Chek Lisa Plus Test Strp) strip Start: 08-07-2018 End: 08-07-2018 Blood Sugar Diag nostic (Accu-Chek Lisa Plus Test Strp) strip Start: 08-07-2018 End: 08-10-2018 Blood Sugar Diag nostic (Onetouch Ultra Test) strip Start: 06-06-2017 End: 08-04-2018 Blood Sugar Diag nostic (Onetouch Ultra Test) strip Start: 08-04-2018 End: 08-05-2018 Lancets (Accu-Ch ek Multiclix Lancet) misc Start: 08-05-2018 End: 08-10-2018 Pen Needle, Diab etic (Comfort Ez Pen [place]) 32 gauge x 1/4 needle Start: 06-06-2017 End: 12-27-2017 Blood Sugar Diag nostic (Accu-Chek Lisa Plus Test Strp) strip Start: 08-10-2018 Lancets (Accu-Ch ek Multiclix Lancet) misc Start: 08-10-2018 Pen Needle, Diab etic (Comfort Ez Pen [place]) 32 gauge x 1/4 needle Start: 12-27-2017 Blood Sugar Diag nostic (Accu-Chek Lisa Plus Test Strp) strip Start: 08-05-2018 End: 08-07-2018 Blood Sugar Diag nostic (Accu-Chek Lisa Plus Test Strp) strip Start: 08-07-2018 End: 08-07-2018 Blood Sugar Diag nostic (Accu-Chek Lisa Plus Test Strp) strip Start: 08-07-2018 End: 08-10-2018 Blood Sugar Diag nostic (Onetouch Ultra Test) strip Start: 06-06-2017 End: 08-04-2018 Blood Sugar Diag nostic (Onetouch Ultra Test) strip Start: 08-04-2018 End: 08-05-2018 Lancets (Accu-Ch ek Multiclix Lancet) misc Start: 08-05-2018 End: 08-10-2018 Pen Needle, Diab etic (Comfort Ez Pen [place]) 32 gauge x 1/4 needle Start: 06-06-2017 End: 12-27-2017 Blood Sugar Diag nostic (Accu-Chek Lisa Plus Test Strp) strip Start: 08-10-2018 Lancets (Accu-Ch ek Multiclix Lancet) misc Start: 08-10-2018 Pen Needle, Diab etic (Comfort Ez Pen [place]) 32 gauge x 1/4 needle Start: 12-27-2017 Blood Sugar Diag nostic (Accu-Chek Lisa Plus Test Strp) strip Start: 08-05-2018 End: 08-07-2018 Blood Sugar Diag nostic (Accu-Chek Lisa Plus Test Strp) strip Start: 08-07-2018 End: 08-07-2018 Blood Sugar Diag nostic (Accu-Chek Lisa Plus Test Strp) strip Start: 08-07-2018 End: 08-10-2018 Blood Sugar Diag nostic (Onetouch Ultra Test) strip Start: 06-06-2017 End: 08-04-2018 Blood Sugar Diag nostic (Onetouch Ultra Test) strip Start: 08-04-2018 End: 08-05-2018 Lancets (Accu-Ch ek Multiclix Lancet) misc Start: 08-05-2018 End: 08-10-2018 Pen Needle, Diab etic (Comfort Ez Pen [place]) 32 gauge x 1/4 needle Start: 06-06-2017 End: 12-27-2017 Kit X-Plate Thor econ - [id number] Start: 03-21-2023 Kit Plate Aux Sh mayi Thorecon - [id number] Start: 03-21-2023 Blood Sugar Diag nostic (Accu-Chek Lisa Plus Test Strp) strip Start: 08-10-2018 Lancets (Accu-Ch ek Multiclix Lancet) misc Start: 08-10-2018 Pen Needle, Diab etic (Comfort Ez Pen [place]) 32 gauge x 1/4 needle Start: 12-27-2017 Blood Sugar Diag nostic (Accu-Chek Lisa Plus Test Strp) strip Start: 08-05-2018 End: 08-07-2018 Blood Sugar Diag nostic (Accu-Chek Lisa Plus Test Strp) strip Start: 08-07-2018 End: 08-07-2018 Blood Sugar Diag nostic (Accu-Chek Lisa Plus Test Strp) strip Start: 08-07-2018 End: 08-10-2018 Blood Sugar Diag nostic (Onetouch Ultra Test) strip Start: 06-06-2017 End: 08-04-2018 Blood Sugar Diag nostic (Onetouch Ultra Test) strip Start: 08-04-2018 End: 08-05-2018 Lancets (Accu-Ch ek Multiclix Lancet) misc Start: 08-05-2018 End: 08-10-2018 Pen Needle, Diab etic (Comfort Ez Pen [place]) 32 gauge x 1/4 needle Start: 06-06-2017 End: 12-27-2017 Blood Sugar Diag nostic (Accu-Chek Lisa Plus Test Strp) strip Start: 08-10-2018 Lancets (Accu-Ch ek Multiclix Lancet) misc Start: 08-10-2018 Pen Needle, Diab etic (Comfort Ez Pen [place]) 32 gauge x 1/4 needle Start: 12-27-2017 Blood Sugar Diag nostic (Accu-Chek Lisa Plus Test Strp) strip Start: 08-05-2018 End: 08-07-2018 Blood Sugar Diag nostic (Accu-Chek Lisa Plus Test Strp) strip Start: 08-07-2018 End: 08-07-2018 Blood Sugar Diag nostic (Accu-Chek Lisa Plus Test Strp) strip Start: 08-07-2018 End: 08-10-2018 Blood Sugar Diag nostic (Onetouch Ultra Test) strip Start: 06-06-2017 End: 08-04-2018 Blood Sugar Diag nostic (Onetouch Ultra Test) strip Start: 08-04-2018 End: 08-05-2018 Lancets (Accu-Ch ek Multiclix Lancet) misc Start: 08-05-2018 End: 08-10-2018 Pen Needle, Diab etic (Comfort Ez Pen [place]) 32 gauge x 1/4 needle Start: 06-06-2017 End: 12-27-2017 Blood Sugar Diag nostic (Accu-Chek Lisa Plus Test Strp) strip Start: 08-10-2018 Lancets (Accu-Ch ek Multiclix Lancet) misc Start: 08-10-2018 Pen Needle, Diab etic (Comfort Ez Pen [place]) 32 gauge x 1/4 needle Start: 12-27-2017 Blood Sugar Diag nostic (Accu-Chek Lisa Plus Test Strp) strip Start: 08-05-2018 End: 08-07-2018 Blood Sugar Diag nostic (Accu-Chek Lisa Plus Test Strp) strip Start: 08-07-2018 End: 08-07-2018 Blood Sugar Diag nostic (Accu-Chek Lisa Plus Test Strp) strip Start: 08-07-2018 End: 08-10-2018 Blood Sugar Diag nostic (Onetouch Ultra Test) strip Start: 06-06-2017 End: 08-04-2018 Blood Sugar Diag nostic (Onetouch Ultra Test) strip Start: 08-04-2018 End: 08-05-2018 Lancets (Accu-Ch ek Multiclix Lancet) misc Start: 08-05-2018 End: 08-10-2018 Pen Needle, Diab etic (Comfort Ez Pen [place]) 32 gauge x 1/4 needle Start: 06-06-2017 End: 12-27-2017 Blood Sugar Diag nostic (Accu-Chek Lisa Plus Test Strp) strip Start: 08-10-2018 Lancets (Accu-Ch ek Multiclix Lancet) misc Start: 08-10-2018 Pen Needle, Diab etic (Comfort Ez Pen [place]) 32 gauge x 1/4 needle Start: 12-27-2017 Blood Sugar Diag nostic (Accu-Chek Lisa Plus Test Strp) strip Start: 08-05-2018 End: 08-07-2018 Blood Sugar Diag nostic (Accu-Chek Lisa Plus Test Strp) strip Start: 08-07-2018 End: 08-07-2018 Blood Sugar Diag nostic (Accu-Chek Lisa Plus Test Strp) strip Start: 08-07-2018 End: 08-10-2018 Blood Sugar Diag nostic (Onetouch Ultra Test) strip Start: 06-06-2017 End: 08-04-2018 Blood Sugar Diag nostic (Onetouch Ultra Test) strip Start: 08-04-2018 End: 08-05-2018 Lancets (Accu-Ch ek Multiclix Lancet) misc Start: 08-05-2018 End: 08-10-2018 Pen Needle, Diab etic (Comfort Ez Pen [place]) 32 gauge x 1/4 needle Start: 06-06-2017 End: 12-27-2017 Blood Sugar Diag nostic (Accu-Chek Lisa Plus Test Strp) strip Start: 08-10-2018 Lancets (Accu-Ch ek Multiclix Lancet) misc Start: 08-10-2018 Pen Needle, Diab etic (Bd Ultra-Fine [place] Pen Needle) 32 gauge x 5/32 needle Start: 04-20-2024 Blood Sugar Diag nostic (Accu-Chek Lisa Plus Test Strp) strip Start: 08-05-2018 End: 08-07-2018 Blood Sugar Diag nostic (Accu-Chek Lisa Plus Test Strp) strip Start: 08-07-2018 End: 08-07-2018 Blood Sugar Diag nostic (Accu-Chek Lisa Plus Test Strp) strip Start: 08-07-2018 End: 08-10-2018 Blood Sugar Diag nostic (Onetouch Ultra Test) strip Start: 06-06-2017 End: 08-04-2018 Blood Sugar Diag nostic (Onetouch Ultra Test) strip Start: 08-04-2018 End: 08-05-2018 Lancets (Accu-Ch ek Multiclix Lancet) misc Start: 08-05-2018 End: 08-10-2018 Pen Needle, Diab etic (Comfort Ez Pen [place]) 32 gauge x 1/4 needle Start: 06-06-2017 End: 12-27-2017 Pen Needle, Diab etic (Comfort Ez Pen [place]) 32 gauge x 1/4 needle Start: 12-27-2017 End: 04-20-2024 Blood Sugar Diag nostic (Accu-Chek Lisa Plus Test Strp) strip Start: 08-10-2018 Lancets (Accu-Ch ek Multiclix Lancet) misc Start: 08-10-2018 Pen Needle, Diab etic (Bd Ultra-Fine [place] Pen Needle) 32 gauge x 5/32 needle Start: 04-20-2024 Blood Sugar Diag nostic (Accu-Chek Lisa Plus Test Strp) strip Start: 08-05-2018 End: 08-07-2018 Blood Sugar Diag nostic (Accu-Chek Lisa Plus Test Strp) strip Start: 08-07-2018 End: 08-07-2018 Blood Sugar Diag nostic (Accu-Chek Lisa Plus Test Strp) strip Start: 08-07-2018 End: 08-10-2018 Blood Sugar Diag nostic (Onetouch Ultra Test) strip Start: 06-06-2017 End: 08-04-2018 Blood Sugar Diag nostic (Onetouch Ultra Test) strip Start: 08-04-2018 End: 08-05-2018 Lancets (Accu-Ch ek Multiclix Lancet) misc Start: 08-05-2018 End: 08-10-2018 Pen Needle, Diab etic (Comfort Ez Pen [place]) 32 gauge x 1/4 needle Start: 06-06-2017 End: 12-27-2017 Pen Needle, Diab etic (Comfort Ez Pen [place]) 32 gauge x 1/4 needle Start: 12-27-2017 End: 04-20-2024 Blood Sugar Diag nostic (Accu-Chek Lisa Plus Test Strp) strip Start: 08-10-2018 Lancets (Accu-Ch ek Multiclix Lancet) misc Start: 08-10-2018 Pen Needle, Diab etic (Bd Ultra-Fine Kiana Pen Needle) 32 gauge x 5/32 needle Start: 04-20-2024 Blood Sugar Diag nostic (Accu-Chek Lisa Plus Test Strp) strip Start: 08-05-2018 End: 08-07-2018 Blood Sugar Diag nostic (Accu-Chek Lisa Plus Test Strp) strip Start: 08-07-2018 End: 08-07-2018 Blood Sugar Diag nostic (Accu-Chek Lisa Plus Test Strp) strip Start: 08-07-2018 End: 08-10-2018 Blood Sugar Diag nostic (Onetouch Ultra Test) strip Start: 06-06-2017 End: 08-04-2018 Blood Sugar Diag nostic (Onetouch Ultra Test) strip Start: 08-04-2018 End: 08-05-2018 Lancets (Accu-Ch ek Multiclix Lancet) misc Start: 08-05-2018 End: 08-10-2018 Pen Needle, Diab etic (Comfort Ez Pen [place]) 32 gauge x 1/4 needle Start: 06-06-2017 End: 12-27-2017 Pen Needle, Diab etic (Comfort Ez Pen [place]) 32 gauge x 1/4 needle Start: 12-27-2017 End: 04-20-2024 Blood Sugar Diag nostic (Onetouch Ultra Test) strip Start: 10-01-2024 Pen Needle, Diab etic (Bd Ultra-Fine Kiana Pen Needle) 32 gauge x 5/32 needle Start: 04-20-2024 Blood Sugar Diag nostic (Accu-Chek Lisa Plus Test Strp) strip Start: 08-05-2018 End: 08-07-2018 Blood Sugar Diag nostic (Accu-Chek Lisa Plus Test Strp) strip Start: 08-07-2018 End: 08-07-2018 Blood Sugar Diag nostic (Accu-Chek Lisa Plus Test Strp) strip Start: 08-07-2018 End: 08-10-2018 Blood Sugar Diag nostic (Accu-Chek Lisa Plus Test Strp) strip Start: 08-10-2018 End: 09-30-2024 Blood Sugar Diag nostic (Onetouch Ultra Test) strip Start: 06-06-2017 End: 08-04-2018 Blood Sugar Diag nostic (Onetouch Ultra Test) strip Start: 09-30-2024 End: 09-30-2024 Blood Sugar Diag nostic (Onetouch Ultra Test) strip Start: 08-04-2018 End: 08-05-2018 Blood Sugar Diag nostic (Onetouch Ultra Test) strip Start: 09-30-2024 End: 10-01-2024 Lancets (Accu-Ch ek Multiclix Lancet) misc Start: 08-05-2018 End: 08-10-2018 Lancets (Accu-Ch ek Multiclix Lancet) misc Start: 08-10-2018 End: 09-30-2024 Pen Needle, Diab etic (Comfort Ez Pen [place]) 32 gauge x 1/4 needle Start: 06-06-2017 End: 12-27-2017 Pen Needle, Diab etic (Comfort Ez Pen [place]) 32 gauge x 1/4 needle Start: 12-27-2017 End: 04-20-2024 Blood Sugar Diag nostic (Onetouch Ultra Test) strip Start: 10-01-2024 Pen Needle, Diab etic 32 gauge x 5/32 needle Start: 01-15-2025 Blood Sugar Diag nostic (Accu-Chek Lisa Plus Test Strp) strip Start: 08-05-2018 End: 08-07-2018 Blood Sugar Diag nostic (Accu-Chek Lisa Plus Test Strp) strip Start: 08-07-2018 End: 08-07-2018 Blood Sugar Diag nostic (Accu-Chek Lisa Plus Test Strp) strip Start: 08-07-2018 End: 08-10-2018 Blood Sugar Diag nostic (Accu-Chek Lisa Plus Test Strp) strip Start: 08-10-2018 End: 09-30-2024 Blood Sugar Diag nostic (Onetouch Ultra Test) strip Start: 06-06-2017 End: 08-04-2018 Blood Sugar Diag nostic (Onetouch Ultra Test) strip Start: 09-30-2024 End: 09-30-2024 Blood Sugar Diag nostic (Onetouch Ultra Test) strip Start: 08-04-2018 End: 08-05-2018 Blood Sugar Diag nostic (Onetouch Ultra Test) strip Start: 09-30-2024 End: 10-01-2024 Lancets (Accu-Ch ek Multiclix Lancet) misc Start: 08-05-2018 End: 08-10-2018 Lancets (Accu-Ch ek Multiclix Lancet) misc Start: 08-10-2018 End: 09-30-2024 Pen Needle, Diab etic (Bd Ultra-Fine Kiana Pen Needle) 32 gauge x 5/32 needle Start: 04-20-2024 End: 01-15-2025 Pen Needle, Diab etic (Comfort Ez Pen [place]) 32 gauge x 1/4 needle Start: 06-06-2017 End: 12-27-2017 Pen Needle, Diab etic (Comfort Ez Pen [place]) 32 gauge x 1/4 needle Start: 12-27-2017 End: 04-20-2024 Clinical Notes 02-12-2023 to 11-04-2024 Note Date & Type Note Facility 11-04-2024 Radiology Diagnostic study note [facility] Imaging Services [address] [place] [address] [id number] Testicular with Arterial Flow MR#: [id number] Acct: [id number] Name: ROBERT LIPSCOMB Jr. Rep #: [id number] : 1955 M 69 From: Campbell Dasilva MD PCP: Dr. 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 LEFT testicle: 5.3 cm x 3.5 cm x 2.7 cm Left epididymis: 0.8 cm by 1 cm x 1.2 cm Other findings: No hydrocele or large varicocele. US/Testicular with Arterial Flow IMPRESSION: Normal left scrotal ultrasound. The patient is status post right orchiectomy. Reading Location: [place] CC: Dr. Temo Rodriguez DO ~ Business Services Clerk: Signed [facility] 08-26-2024 Radiology Diagnostic study note [facility] Imaging Services [address] [place] [address] L/S Spine Min 4 Views MR#: [id number] Acct: [id number] Name: ROBERT LIPSCOMB Jr. Rep #: [id number] : 1955 M 68 From: Fang Coulter MD PCP: Dr. Temo Rodriguez DO Status: REG CLI Study:L/S Spine Min 4 Views Date of Exam: 08/26/24 Exam# [id number] Ordering Dr: Temo Rodriguez DO PROCEDURE: L/S SPINE MIN 4 VIEWS REASON FOR EXAM: Low back pain, unspecified TECHNIQUE: 6 views of the lumbar spine COMPARISON: None. FINDINGS: Normal vertebral heights. No evidence of fracture. Advanced multilevel disc space narrowing with endplate osteophytes. Moderate facet arthropathy. Normal alignment. No spondylolisthesis. RAD/L/S Spine Min 4 Views IMPRESSION: Moderate degenerative changes in the lumbar spine with no acute osseous abnormality. Reading Location: [facility] CC: Dr. Temo Rodriguez DO ~ Business Services Clerk: Signed [facility] 08-26-2024 Evaluation note Diagnosis Onset Date Resolution Preop cardiovascular exam acute August 26, 2 025 8:56am Essential (primary) hypertension August 26, 2024 8:56am History of coronary artery bypass surgery March 21, 2023 chronic August 26, 2024 8:56am History of coronary artery stent placement 2004August 26, 2024 8:56am Hyperlipidemia chronic August 26, 2024 8:56am Diabetes chronic September 30 8:41am Essential (primary) hypertension chronic September 30, 2024 8:41am High triglycerides chronic September 30, 2024 8:41am Obesity chronic September 30 8:41am [facility] Work Phone: 1(171) 598-129512-11-2024 Evaluation note* Diagnosis Onset Date Resolution Status Admit Date Constipation may 8:34am Diabetes chronic June 03, 2024 8:34am Essential (primary) hypertension chronic June 03, 2 024 8:34am High triglycerides chronic [facility] 2023 8:34am Hyperlipidemia chronic May 242023 8:34am Obesity chronic June 03, 2024 8:34am Laceration of left little finger w/o foreign body w/o damage to nail acute May 4:23pm Preop cardiovascular exam acute August 26, 2024 8:56am Essential (primary) hypertension August 26, 2024 8:56am History of coronary artery bypass surgery March 21, 2023August 26, 2024 8:56am History of coronary artery stent placement 2004August 26, 2024 8:56am Hyperlipidemia August 26, 2024 8:56am [facility] Work Phone: 1(636) 563-715910-23-2023 History of Present illness Narrative* Jonathan De Leon, CLINICAL PHARMACY COORDINATOR - TELECOM BILLING ANALYST - 04/15/2023 11:30 AM EDT Images from the original note were not included. [facility]: [facility] [address] [facility] [address] Dept: [phone] Dept Loc: [phone] Visit type: Established patient Reason for Visit: Follow-up Assessment and Plan 1. CAD in [place] artery 2. Mixed hyperlipidemia 3. Hypertension, unspecified type 4. Elevated hemidiaphragm - Follow up with Kentrell Chilel cleared for cardiac rehab - no further follow up in our office - pt is doing well from a surgical perspective - He is on GDMT for CAD with EF preserved Disposition: Patient verbalized understanding of plan and stated they would call if any questions or concerns arise. Treatment Team: PCP: TEMO RODRIGUEZ Subjective HPI: Mr. Robert Lipscomb is a 67 year old male patient with a PMHx that includes CAD s/p SUZETTE tp RCA (2004), RBBB, HTN, HLD, anemia and diabetes (A1c 7.9). He was referred to CT Surgery by Dr. Armendariz. Patient had underwent coronary cath and was found to have severe multivessel CAD. He was seen in the OP setting by Dr. Childress. He consented and was scheduled for CABG on 03/21/23. 03/21/23: Dr. 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 He also has not needed Remeronany longer. He has follow up with Dr Chilel in [place] this week. Review of Systems Constitutional: Negative for diaphoresis, fatigue and fever. Respiratory: Negative for cough, shortness of breath and wheezing. Cardiovascular: Negative for chest pain, palpitations and leg swelling. Gastrointestinal: Negative for abdominal distention, constipation and diarrhea. Skin: Negative for color change, pallor and rash. Allergies Allergen Reactions Amoxicillin Amoxicillin-Pot Clavulanate Atorvastatin Other Metformin Hcl Other Other pollen causes redness of eyes Pollen Extract Cough Clavulanic Acid Rash Metformin Diarrhea and Rash Outpatient Medications Prior to Visit Medication Sig Dispense Refill Apoaequorin (Prevagen) 10 MG capsule aspirin 81 MG chewable tablet Chew 1 tablet (81 mg) daily. 30 tablet 11 atenolol (Tenormin) 50 MG tablet furosemide (Lasix) 40 MG tablet Take 1 tablet (40 mg) by mouth every other day. 15 tablet 0 insulin aspart (NovoLOG FLEXPEN) 100 UNIT/ML pen Inject 14 Units under the skin in the morning and 14 Units at noon and 14 Units in the evening. Inject with meals. 15 mL 2 insulin glargine (Lantus SoloStar) 100 UNIT/ML pen Inject 36 Units under the skin every morning. insulin pen needle 32G x 4 mm [facility] Use as instructed 5 times daily 500 each 1 liraglutide (Victoza) 18 MG/3ML injection mirtazapine (Remeron SolTab) 15 MG disintegrating tablet Take 1 tablet (15 mg) by mouth Nightly. 30tablet 0 rosuvastatin (Crestor) 20 MG tablet Nightly. No facility-administered medications prior to visit. Past Medical History: Diagnosis Date Anemia Arthritis Coronary artery disease DM (diabetes mellitus) (HCC) History of transfusion HTN (hypertension) Hyperlipidemia RBBB Testicular cancer (HCC) Objective Patient reported: No flowsheet data found. There were no vitals filed for this visit. Wt Readings from Last 3 Encounters: 04/02/23 293 lb 6.4 oz (133 kg) 03/28/23 295 lb (134 kg) 03/11/23 298 lb 8 oz (135 kg) Physical exam deferred due to virtual visit-with audio (telephone) capabilities only Data Reviewed and Summarized Labs/Imaging/Testing: reviewed EMR, see A&P for pertinent diagnostic results related to office visit Patient was identified and seen today via Telehealth by agreement and consent. I used the followingTelehealth technology: Audio capability only. Total length of call 32 minutes. The patient was offered and advised video for a more comprehensive evaluation, but the patient declined or was unable touse video. Patient location: Patient Location: Home. This patient encounter is appropriate and reasonable under the circumstances: transportation issues . The patient has been advised of the potential risks and limitations of this mode of treatment (including but not limited to the absence of in-person examination) and has agreed to be treated in a remote fashion in spite of them. Any and all o f the patient's/patient's family's questions on this issue have been answered and I have made no promises or guarantees to the patient. The patient has also been advised to contact this office for worsening conditions or problems, and seek emergency medical treatment and/or call 911 if the patient deems either necessary. The patient stated that they are currently in the [facility]. If the patient is a minor, permission has been obtained by the parent or guardian for the patient to receive medical care at this visit. MARCK Ramirez CNP documented in this [facility]10-10-2023 History of Present illness Narrative* MARCK Ramirez CNP - 04/02/2023 12:00 PM EDT Images from the original note were not included. [facility]: [facility] [place] [address] [facility] [address] [place] [id number] Dept: [phone] Dept Loc: [phone] Visit type: Established patient Reason for Visit: Post-op Assessment and Plan 1. CAD in [place] artery 2. Hypertension, unspecified type 3. Elevated hemidiaphragm 4. Obesity, Class III, BMI 40-49.9 (morbid obesity) (HCC) 5. Mixed hyperlipidemia - Follow up with Kentrell Chilel cleared for cardiac rehab - follow up VV in 2 weeks - pt is doing well from a surgical perspective - GDMT for CAD with EF preserved Disposition: Patient verbalized understanding of plan and stated they would call if any questions or concerns arise. Treatment Team: PCP: TEMO RODRIGUEZ Subjective HPI: Mr. Robert Lipscomb is a 67 year old male patient with a PMHx that includes CAD s/p SUZETTE tp RCA (2004), RBBB, HTN, HLD, anemia and diabetes (A1c 7.9). He was referred to CT Surgery by Dr. Armendariz. Patienthad underwent coronary cath and was found to have severe multivessel CAD. He was seen in the OP setting by Dr. Childress. He consented and was scheduled for CABG on 03/21/23. 03/21/23: Dr. Childress- CABGx3 (PIERSON-LAD, SVG-OM, SVG-RPDA), LEVH Pt is doing well has no new issues - all wounds are healing well no new complaints. All of his incisions are well healed at this point. He is back to basic activity. Review of Systems Constitutional: Negative for diaphoresis, fatigue and fever. Respiratory: Negative for cough, shortness of breath and wheezing. Cardiovascular: Negative for chest pain, palpitations and leg swelling. Gastrointestinal: Negative for abdominal distention, constipation and diarrhea. Skin: Negative for color change, pallor and rash. Allergies Allergen Reactions Amoxicillin Amoxicillin-Pot Clavulanate Atorvastatin Other Metformin Hcl Other Other pollen causes redness of eyes Pollen Extract Cough Clavulanic Acid Rash Metformin Diarrhea and Rash Outpatient Medications Prior to Visit Medication Sig Dispense Refill Apoaequorin (Prevagen) 10 MG capsule aspirin 81 MG chewable tablet Chew 1 tablet (81 mg) daily. 30 tablet 11 atenolol (Tenormin) 50 MG tablet insulin aspart (NovoLOG FLEXPEN) 100 UNIT/ML pen Inject 14 Units under the skin in the morning and 14 Units at noon and 14 Units in the evening. Inject with meals. 15 mL 2 insulin glargine (Lantus SoloStar) 100 UNIT/ML pen Inject 36 Units under the skin every morning. insulin pen needle 32G x 4 mm mis Use as instructed 5 times daily 500 each 1 liraglutide (Victoza) 18 MG/3ML injection oxyCODONE (Roxicodone) 5 MG immediate release tablet Take 1 tablet (5 mg) by mouth every 6 hours asneeded for moderate pain (4-6) for up to 5 days. 15 tablet 0 rosuvastatin (Crestor) 20 MG tablet Nightly. No facility-administered medications prior to visit. Past Medical History: Diagnosis Date Anemia Arthritis Coronary artery disease DM (diabetes mellitus) (HCC) History of transfusion HTN (hypertension) Hyperlipidemia RBBB Testicular cancer (HCC) Objective Patient reported: No flowsheet data found. Vitals: 04/02/23 1159 BP: (!) 142/76 Pulse: 78 Wt Readings from Last 3 Encounters: 04/02/23 293 lb 6.4 oz (133 kg) 03/28/23 295 lb (134 kg) 03/11/23 298 lb 8 oz (135 kg) Physical exam deferred due to virtual visit-with audio (telephone) capabilities only Physical exam limited due to virtual visit-audio/video capabilities Physical Exam Cardiovascular: Rate and Rhythm: Normal rate and regular rhythm. Heart sounds: Normal heart sounds. Pulmonary: Effort: Pulmonary effort is normal. Breath sounds: Normal breath sounds. Abdominal: General: Bowel sounds are normal. Palpations: Abdomen is soft. There is no mass. Tenderness: There is no abdominal tenderness. Hernia: No hernia is present. Skin: General: Skin is warm and dry. Neurological: Mental Status: He is alert and oriented to person, place, and time. Data Reviewed and Summarized Labs/Imaging/Testing: reviewed EMR, see A&P for pertinent diagnostic results related to office visit MARCK Ramirez CNP documented in this [facility]10-06-2023 Miscellaneous Notes* Telephone Encounter - MARCK Ramirez CNP - 03/29/2023 3:51 PM EDT PC to the patient increased short acting to 18 units with meals will see if that helps * Telephone Encounter - Malini Mccormick RN - 03/29/2023 3:41 PM EDT Pt called and states that pt was discharged yesterday with insulin, however pt sugar has been 260 or more all day. Please advise. documented in this encounterSKettering [facility] Behavior[facility] [id number] Telephone encounter Note* Telephone Encounter - MARCK Ramirez CNP - 03/29/2023 3:51 PM EDT PC to the patient increased short acting to 18 units with meals will see if that helps [id number] Telephone encounter Note* Telephone Encounter - Malini Mccormick RN - 03/29/2023 3:41 PM EDT Pt called and states that pt was discharged yesterday with insulin, however pt sugar has been 260 or more all day. Please advise. [id number] NoteCare Management Progress Note Patient remains on HLU s/p CABG x 3 POD 3 7. Spoke with patient and family at bedside, discussed DME-aware of cost on transfer bench-will borrow a family members. [facility] has home care set up, no further discharge needs. Discharge Milestones and Delays Expected Date/Time: 03/29/2023 Afternoon Disposition: Home or Self Care Discharge Milestones Completed Place discharge order Complete med reconciliation Case mgmt discharge readiness Expected Discharge History Expected Date/Time Set By Reviewed At 03/29/2023 Afternoon MARCK Ramirez CNP 03/28/2023 11:17 AM 03/29/2023 Estrella Aguilar RN 03/28/2023 9:31 AM 03/29/2023 Estrella Aguilar RN 03/27/2023 8:00 AM 03/27/2023 Estrella Aguilar RN 03/26/2023 9:24 AM 03/26/2023 Estrella Aguilar RN 03/25/2023 8:41 AM 03/28/2023 Estrella Aguilar RN 03/22/2023 10:29 AM 03/28/2023 Nya Jacinto, CLINICAL PHARMACY COORDINATOR - TELECOM BILLING ANALYST 03/21/2023 12:20 PM 03/28/2023 Jonathan De Leon, CLINICAL PHARMACY COORDINATOR - TELECOM BILLING ANALYST 03/21/2023 5:42 AM Length of Stay (Days): 7 GMLOS: 5.8 [facility]10-05-2023 Miscellaneous Notes* Care Plan - Mercedez Eaton RN - 03/28/2023 2:19 PM EDT The patient is Moderately Stable - Low risk of patient condition declining or worsening The patient's goals for the shift include go home The clinical goals for the shift include discharge, creatinine normalize Over the shift, the patient did not make progress toward the following goals. Barriers to progression include pt sensitive to all care, reluctant to walk and exert self due to discomfort. . Recommendations to address these barriers include medicate pain, encouragement. * Care Coordination - Estrella Aguilar RN - 03/28/2023 1:31 PM EDT Images from the original note were not included. Care Management Progress Note Patient remains on HLU s/p CABG x 3 POD 3 7. Spoke with patient and family at bedside, discussed DME-aware of cost on transfer bench-will borrowa family members. [facility] has home care set up, no further discharge needs. Discharge Milestones and Delays Expected Date/Time: 03/29/2023 Afternoon Disposition: Home or Self Care Discharge Milestones Completed Place discharge order Complete med reconciliation Case mgmt discharge readiness Expected Discharge History Expected Date/Time Set By Reviewed At 03/29/2023 Afternoon Jonathan De Leon, CLINICAL PHARMACY COORDINATOR [facility] 03/28/2023 11:17 AM 03/29/2023 Estrella Aguilar RN 03/28/2023 9:31 AM 03/29/2023 Estrella Aguilar RN 03/27/2023 8:00 AM 03/27/2023 Estrella Aguilar RN 03/26/2023 9:24 AM 03/26/2023 Estrella Aguilar RN 03/25/2023 8:41 AM 03/28/2023 Estrella Aguilar RN 03/22/2023 10:29 AM 03/28/2023 Nya Jacinto, CLINICAL PHARMACY COORDINATOR [facility] 03/21/2023 12:20 PM 03/28/2023 Jonathan De Leon, [facility] 03/21/2023 5:42 AM Length of Stay (Days): 7 GMLOS: 5.8 * Care Coordination - Unknown Case Management - 03/28/2023 1:17 PM EDT Patient Choice Patient Name: ROBERT LIPSCOMB Date of : 1955 All Providers Sent Referral Name: [facility] Phone: [phone] Address: [address] [place] [address] * Home Care - Jesika Vidal RN - 03/28/2023 1:13 PM EDT Notified [facility]. * Care Coordination - Estrella Aguilar RN - 03/27/2023 8:00 AM EDT Images from the original note were not included. Care Management Progress Note Patient remains on HLU s/p CABG x 3 POD # 6. VSS, on 2L NC, SCr continues to rise, gentle hydration, WBC down trending, insulin per endocrine and PT/OT recommending home with HHC. Patient from home with , [facility] has home care set up. Discharge Milestones and Delays Expected Date/Time: 03/29/[address] discharge order Complete med reconciliation Case mgmt discharge readiness Clinical Stability Diagnsotic Workup Expected Discharge History Expected Date/Time Set By Reviewed At 03/29/2023 Estrella Aguilar RN 03/27/2023 8:00 AM 03/27/2023 Estrella Aguilar RN 03/26/2023 9:24 AM 03/26/2023 Estrella Aguilar RN 03/25/2023 8:41 AM 03/28/2023 Estrella Aguilar RN 03/22/2023 10:29 AM 03/28/2023 Nya Jacinto, CLINICAL PHARMACY COORDINATOR - [facility] 03/21/2023 12:20 PM 03/28/2023 Jonathan De Leon CLINICAL PHARMACY COORDINATOR - [facility] 03/21/2023 5:42 AM Length of Stay (Days): 6 GMLOS: 5.8 * Care Coordination - Estrella Aguilar RN - 03/26/2023 10:03 AM EDT Images from the original note were not included. Care Management Progress Note Patient remains on HLU s/p CABG x 3 POD # 5. VSS, on 2L NC, in NSR on tele, SCr bumped, WBC increased, stop diuresis, 1L fluid, dc bowel regimen (multiple loose stool) insulin per endocrine and PT recommending home with HHC. Patient from home with , [facility] has home care set up. Discharge Milestones and Delays Expected Date/Time: 03/27/[address] discharge order Complete med reconciliation Case mgmt discharge readiness Clinical Stability Diagnsotic Workup Expected Discharge History Expected Date/Time Set By Reviewed At 03/27/2023 Estrella Aguilar RN 03/26/2023 9:24 AM 03/26/2023 Estrella Aguilar RN 03/25/2023 8:41 AM 03/28/2023 Estrella Aguilar RN 03/22/2023 10:29 AM 03/28/2023 Nya Jacinto APRN - TELECOM BILLING ANALYST 03/21/2023 12:20 PM 03/28/2023 Jonathan De Leon APRN - TELECOM BILLING ANALYST 03/21/2023 5:42 AM Length of Stay (Days): 5 GMLOS: 5.8 * Care Coordination - Estrella Aguilar RN - 03/25/2023 8:41 AM EDT Images from the original note were not included. Care Management Progress Note Patient remains on HLU s/p CABG x 3 POD # 4. VSS, on 2L NC, NSR on tele, continuing IV diuresis, added MOM to bowel regimen, insulin per endocrine and PT recommending home with [facility] PT. Patient from home with [facility] following for home care needs. Discharge Milestones and Delays Expected Date/Time: 03/26/[address] discharge order Complete med reconciliation Case mgmt discharge readiness Clinical Stability Diagnsotic Workup Expected Discharge History Expected Date/Time Set By Reviewed At 03/26/2023 Estrella Aguilar RN 03/25/2023 8:41 AM 03/28/2023 Estrella Aguilar RN 03/22/2023 10:29 AM 03/28/2023 Nya Jacinto APRN - TELECOM BILLING ANALYST 03/21/2023 12:20 PM 03/28/2023 Jonathan De Leon APRN - TELECOM BILLING ANALYST 03/21/2023 5:42 AM Length of Stay (Days): 4 GMLOS: 5.8 * Home Care - Korin Garcia, MORTU[employer] BEAUTICIAN - 03/24/2023 4:32 PM EDT Start PACC Note Home Health Referral Educated patient and spouse on Home Care and services available. Patient offered choice of available HHC and agreeable to SN/PT services with [facility]. Care Types: [facility] [facility] Isolation Precautions: No active isolations Social Determinates of Health: Tobacco Use: Low Risk (03/22/2023) Patient History Smoking Tobacco Use: Never Smokeless Tobacco Use: Never Passive Exposure: Not on file Social History Substance and Sexual Activity Alcohol Use Not Currently Social History Substance and Sexual Activity Drug Use Never Does the patient have any financial resource strain? No Does the patient have any food insecurities? No Does the patient have any housing instabilities? No If any of the above is noted as yes - consider a MANAGER PUBLISHING evaluation once the patient returns home. START PATIENT REGISTRATION INFORMATION Order Information Order Signing Physician: Donya Childress MD Service Ordered RN ?: Yes Service Ordered PT ?: Yes Service Ordered OT ?: No Service Ordered ST ?: No Service Ordered MANAGER PUBLISHING?:No Service Ordered CATASTROPHE CLAIMS SUPERVISOR?: No Following Physician:Donya Childress MD Following Physician Overseeing Physician: Donya Childress MD (Required for Residents only) Agreeable to Follow? Yes Date/Time of Call 03/24/23 4:33 PM, Spoke with: Office is closed verified in epic Care Coordination Same Day SOC?: No Primary Care Physician: TEMO RODRIGUEZ Primary Care Physician Primary Care Physician Address: [facility] [place] [address] Visit Instructions: N/A Service Discharge Location Type: Home with Home Health Care Service Facility Name: N/A Service Floor Facility: N/A Service Room No: N/A Demographics Patient Last Name: Ty Patient First Name: Robert Language/Communication Barrier: N/A Service Address: [address] [facility] Service City: [place] Service ST: [place] Service ZIP: [address] Service (home) Other phone numbers: Telephone Information: Emergency Contact: Extended Emergency Contact Information Primary Emergency Contact: Cat Lipscomb Address: [address] [place] [address] [address] [place] Relation: Spouse Admission Information Admit Date: 03/21/2023 Patient status at discharge: Inpatient Admitting Diagnosis Atherosclerotic heart disease of [place] coronary artery without angina pectoris[I25.10] CAD in [place] artery [I25.10] Caregiver Information Caregiver First Name: Cat Caregiver Last Name: Ty Caregiver Relationship to Patient spouse Caregiver Caregiver Notes: N/A [employer] List No END PATIENT REGISTRATION INFORMATION Pt Home Health goal to remain at home COVID Status 1. Do you have any upper respiratory symptoms (cough, SOB, Fever)? No 2. Have you been exposed to anyone with COVID-19 Virus? No Answer only if pending or positive for COVID-19? 1. Agreeable to wear PPE at each visit? No 2. Is the hospital supplying them with PPE upon Discharge? No Start PACC Summary General Report/ Additional Comments Mr. Robert Lipscomb is a 67 year old male patient with a PMHx that includes CAD s/p SUZETTE tp RCA (2004), RBBB, HTN, HLD, anemia and diabetes (A1c 7.9). He was referred to CT Surgery by Dr. Armendariz. Patienthad underwent coronary cath and was found to have severe multivessel CAD. He was seen in the OP setting by Dr. Childress. He consented and was scheduled for CABG on 03/21/23. Discharge Date: TBD Referral Source-PACC: (Hospital/Unit): [facility] / T1-126/T1-126 A End PACC Note * Care Coordination - Estrella Aguilar RN - 03/22/2023 11:18 AM EDT Care Managment Initial Assessment Date: 03/22/2023 Patient Name: Robert Lipscomb : 1955 Patient Information Source of Information: Patient Cognition/Language: WFL - Within Functional Limits Permission given to speak with patient bank representative/caregiver as indicated: Confirmation of Payer with patient/family: Yes Payer Name: Medicare A&B MMO : No Confirmation of Primary Care Physician: Confirmed PCP Name: Dr. Rodriguez Seen in last 2 years?: Yes Primary Caregiver: Self If assistance needed, confirmed caregiver ready, willing and able to care for patient at discharge: Confirmed with: Living Arrangements Current Residence: House Number of Floors 1 Number of Entry Steps: 2 Bed/Bath Levels: Both first floor Facility: Facility Name: Plan to Return: Lives with: Spouse/significant other Support Systems: Spouse/significant other, Children, Family members Activities of Daily Living Ambulation: Independent Bathing/Dressing: Independent Elimination/Continence/Toileting: Independent Feeding: Independent Who Assists with Activities of Daily Living: Instrumental Activities of Daily Living Prescription Coverage: Yes Pharmacy Used: [facility] [place] Medication Management: Independent Transportation/Shopping: Independent Transportation Mode: Car Needs Assistance with Transportation at Discharge: No Meal Preparation: Independent Laundry/Cleaning: Independent Finances/Bill Paying: Independent (can do but pays bills) Communication: Independent Types of Care Services/Equipment Utilized Care Services: Dialysis Type: Durable Medical Equipment: Other (Comment) (walking stick for longer distances) Patient's Goal/Discharge Plan Patient expects to be discharged to: home Discharge Planning Actions: Continue to follow Patient's Choice Rights and [employer] and Collaborative Relationships Disclosed as Indicated for Post-Acute Care: Interdisciplinary Team Engagement: Home Health Care, PT/OT Social Work Referral for: Additional Information: Patient admitted to HLU s/p CABG x 3 POD # 1. Spoke with patient at bedside, introduced self and role. Patient from home with , is independent, has PCP and prescription coverage, will have a ride home and will task [facility] to follow for home care post op. Estrella Aguilar RN * Significant Event - Gianni Xie RCP - 03/21/2023 2:43 PM EDT 03/21/23 1414 Patient Parameters Heart Rate 102 Resp (!) 30 SpO2 93 % Settings Vent Mode SPONT Mandatory Type VC Spontaneous Type TC Vt (Set, mL) 450 mL IP Set (cm H2O) 0 cm H2O FiO2 (%) 30 % PEEP/CPAP (cm H2O) 5 cm H20 Peak Flow 55 L/min Sensitivity 3 Expiratory Sensitivity (%) 25 % % Support 0 % Readings PIP Observed (cm H2O) 12 cm H2O MAP (cm H2O) 7.7 Resp Rate Observed 31 Vt (observed, mL) 440 mL Minute Ventilation (L/min) 16.3 L/min I:E Ratio 1:2.40 Plateau Pressure (cm H2O) 0 cm H2O Dynamic Compliance (L/cm H2O) 64 L/cm H2O Static Compliance (L/cm H2O) 0 Airway Resistance 2.2 Total PEEP (cm H2O) 0 cm H2O Alarms High RR Alarm 45 breaths per minute Insp Pressure High (cm H2O) 40 cm H2O MV High (L/min) 18 L/min MV Low (L/min) 3.5 L/min Vt High (ciara) (mL) 950 mL Vt Low (ciara) (mL) 200 mL Vt High (spont) (mL) 950 mL Vt Low (spont) (mL) 200 mL High VTi 1050 Apnea Interval (sec) 20 seconds Spontaneous Breathing Trial SpO2>/=88% Yes FiO2</=50% Yes PEEP </=8cmH2O Yes HR <140 BPM Yes RR </= 35 breaths/min Yes MAP >/= 65mmHg Yes Arterial pH >7.30 and <7.50 Yes Safety Screen Spontaneous Breathing Trial (SBT) Proceed with SBT - No exclusion criteria met Weaning Parameters Weaning Start Time 1415 Weaning Tidal Volume 438 mL Weaning Respiratory Rate 30 Spontaneous Minute Volume (MV) 15.2 Total RSBI 68.49 Weaning Tolerance Fair Weaning Stop Time 1445 Weaning Duration (min) 30 Spontaneous Breathing Trial (SBT) Outcome SBT Passed * Op Note - Donya Childress MD - 03/21/2023 7:29 AM EDT DATE OF PROCEDURE: 03/21/2023 PREOPERATIVE DIAGNOSIS: Coronary artery disease POSTOPERATIVE DIAGNOSIS: Coronary artery disease PROCEDURE: 1. Coronary artery bypass grafting x 3 - Left internal mammary artery to the left anterior descending - Saphenous vein graft to the obtuse marginal - Saphenous vein graft to the right posterior descending artery 2. Endoscopic vein harvest, left lower extremity SURGEON: Donya Childress MD SOCIAL SCIENCES CHAIR: DIMA Randall COMPLICATIONS: None intra-op CONDITION: Stable IMPLANTS: 1 thorecon Auxillary plate in manubrium 1 X plate 1 box plate 16 14 mm screws DESCRIPTION OF PROCEDURE: The patient was prepped and draped in the appropriate manner, having undergone general endotrachealanesthetic in addition to [place] catheter placement, arterial line, and meyer catheter placement. An antibiotic and a beta sherwin were administered pre-operatively and documented. Incision and conduit harvest/preparation: A midline sternotomy incision was utilized in standard fashion. The sternum was divided with the oscillating saw. The left internal mammary artery was taken down with clips and bovie cauterization. Papaverine was used. The left lower extremity saphenous vein was harvested via the endoscopic approach. The patient was fully heparinized prior to dividing andprepping the mammary. Cannulation and cardiopulmonary bypass: After cannulation, the patient was placed on cardiopulmonary bypass support. Ascending aortic cross-clamp was applied. Antegrade cardioplegia (microplegia) wasdelivered till the heart was arrested in diastole. Cardioplegia was re-administered every 20 minutes while the ascending aorta was cross clamped. Aortic canula: 24 Fr soft flow angled cannula in distal ascending aorta Venous canula: 29/29 Fr triple stage cannula via right atrial appendage Cardioplegia: Antegrade via cannula in the mid ascending aorta. Coronary artery bypass: Bypasses were performed using the respective conduits listed above to the [place] arterial targets with 7-0 Prolene distally and 6-0 Prolene proximally to the ascending aorta. The left internal mammary artery was anastomosed to the LAD with 7-0 Prolene. CPB wean and decannulation: The patient was given a dose of warm blood cardioplegia. Valsalva breaths were mechanically administered and the aorta was unclamped. Pacing wire was not placed. The patient was rewarmed and weaned from cardiopulmonary bypass support without difficulty. Protamine was administered and cannulas were removed without difficulty. Two 24 Fr aris drains were placed, one in the left pleural space and one in the mediastinum. Closure: Hemostasis was achieved. The sternum was closed with sternalock XP plating system. The incision was closed in layers with running 0, 2-0 and 4-0 stitches. Dressings applied, and the patient was transferred to the cardiovascular intensive care unit in stable condition. Cardiopulmonary bypass time: 69 minutes Cross clamp time: 61 minutes Intra-op ELIAN: Normal EF Donya Childress MD documented in this [facility]10-05-2023 Nurse Note* Mercedez Eaton RN - 03/28/2023 2:19 PM EDT Pt discharged home with and daughter. All discharge instructions gone over, med rec reviewed until understanding verbalized. Activity restrictions, when to call office and problems to watch for gone over. Pt encouraged to walk at the very least 4 times a day and to use IS and check MBS's. To car via wheelchair. Saline lock removed. documented in this [facility]10-05-2023 History of Present illness Narrative* Fausto Kilpatrick MD - 03/28/2023 1:46 PM EDT [facility] [address] [place] [address] Progress Note Assessment: Assessment: 67 y.o. 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 Non oliguric DEIDRE ATN in setting of hemodynamic changes and decraese IV depletion due to diarrhea Hold marleni LR 50ml/hr Albumin 25 gm bid Creatinine better 2. Volume IV volume deplted third spacing 3. Electrolytes:K 3.6 no nee to replete 4. Acid/base: AGMA added LR 5. MBD: check uric acid 6. Anemia:acute on chronic 7. Medications:dose [id number] Plan: -IV LR x 24 hrs Fausto Kilpatrick MD 03/28/2023 1:48 PM Subjective: Patient seen and examined today. We are following this patient for SOB betetr sitting on chair Creatinine improved 2.23. Scheduled Meds:acetaminophen, 1,000 mg, Oral, q8h aspirin, 81 mg, Oral, Daily atenolol, 50 mg, Oral, Daily cefepime, 2,000 mg, IntraVENous, q12h heparin, 5,000 Units, SubCUTAneous, BID insulin glargine, 36 Units, SubCUTAneous, q AM insulin lispro, 0-12 Units, SubCUTAneous, TID WC Insulin Lispro, 14 Units, SubCUTAneous, TID WC Lidocaine, 1 patch, Topical, Daily melatonin, 10 mg, Oral, Nightly pantoprazole, 40 mg, Oral, qAM AC rosuvastatin, 20 mg, Oral, Nightly senna-docusate sodium, 2 tablet, Oral, Nightly Continuous Infusions:lactated Ringer's, 50 mL/hr, Last Rate: 50 mL/hr (03/28/23 0215) PRN Meds:PRN medications: calcium gluconate, dextrose, dextrose, glucagon (rDNA), glucose, ipratropium-albuterol, ondansetron ODT OR ondansetron, oxyCODONE OR oxyCODONE, potassium chloride CR Vitals: BP (!) 115/37 Pulse 70 Temp 36.8 C (98.3 F) Resp 20 Ht 1.753 m (5' 9) Wt 134 kg (295 lb) SpO2 97% PF 55 L/min BMI 43.56 kg/m BLOOD PRESSURE RANGE: Systolic (24hrs), Av , Min:110 , Max:127 ; Diastolic (24hrs), Av, Min:35, Max:49 24HR INTAKE/OUTPUT: Intake/Output Summary (Last 24 hours) at 03/28/2023 1348 Last data filed at 03/28/2023 0600 Gross per 24 hour Intake 559 ml Output -- Net 559 ml Physical exam: CTA Incision CDI RRR Abdomen distended Data: Labs: Recent Labs 03/26/23 0802 03/27/23 0527 03/28/23 0531 WBC 14.8* 13.9* 10.7 HGB 10.8* 9.3* 10.1* HCT 33.1* 28.3* 30.6* MCV 86.5 87.4 87.2 PLT 229 205 249 Recent Labs 03/26/23 0030 03/26/23 0145 03/27/23 0527 03/27/23 1600 03/28/23 0531 03/28/23 1159 NA 140 < > 136 131* 136 136 K 3.3* < > 3.6 3.1* 3.5 3.7 CL 103 < > 102 95* 100 99 CO2 25 < > 20* 24 25 23 GLUCOSE 48* < > 121* 245* 165* 322* MG 2.7* -- 2.5* -- -- -- BUN 51* < > 78* 88* 79* 72* CREATININE 2.35* < > 2.87* 3.06* 2.44* 2.23* < > = values in this interval not displayed. Ionized Calcium: No components found for: IONCA Magnesium: Lab Results Component Value Date MG 2.5 (H) 03/27/2023 Phosphorus: No results found for: PHOS U/A: No results found for: NITRITE, COLORU, PHUR, TRICHOMONAS, YEAST, BACTERIA, CLARITYU, SPECGRAV, LEUKOCYTESUR, UROBILINOGEN, BILIRUBINUR, BLOODU, GLUCOSEU, KETONESU, AMORPHOUS Urine Culture: No components found for: CURINE Blood Culture: No components found for: CBLOOD, CFUNGUSBL Blood Culture from Central Line: No components found for: CBLOODLN * Shey Navarro, ORTHOTIC AND PROSTHETIC TECHNICIAN - 03/28/2023 12:03 PM EDT Physical Therapy Facility/Department: [facility] Physical Therapy Daily Treatment Note NAME: Shane Lipscomb : 1955 Date of Service: 03/28/2023 Discharge Recommendations: Home with Home health PT PT Equipment Recommendations Equipment Needed: No Other: own rollator Assessment Requires PT Follow-Up: Yes Assessment: Patient requires increased time for all activities. Demonstrated good carryover with P & C therex with verbal prompting. Using rollator and minding sternal precautions except tendencyto want to push up with one hand during sit-stand transfer. Required verbal and tactile cues to address. Pericare managed by ORTHOTIC AND PROSTHETIC TECHNICIAN as patient said he is unable. Recommend home at discharge. Performance Deficits/Impairments: Decreased functional mobility , Decreased ADL status, Decreased strength, Decreased endurance, Decreased ROM, Decreased posture Decision Making: Medium Complexity Patient Diagnosis(es): The primary encounter diagnosis was CAD in [place] artery. 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 has a past medical history of Anemia, Arthritis, Coronary artery disease, DM (diabetes mellitus) (HCC), History of transfusion, HTN (hypertension), Hyperlipidemia, RBBB, and Testicular cancer (HCC). has a past surgical history that includes lap,inguinal hernia repr,initial (historical); Colonoscopy; Appendectomy; Coronary stent placement (2004); Tonsillectomy; and Adenoidectomy. Restrictions Restrictions/Precautions Restrictions/Precautions: General Precautions, Fall Risk Required Braces or Orthoses?: No Position Activity Restriction Sternal Precautions: No Pushing, No Pulling, 10# Lifting Restrictions Other position/activity restrictions: PIV, tele. Subjective General Chart Reviewed: Yes Patient Assessed for Rehabilitation Services: Yes Response To Previous Treatment: Patient with no complaints from previous session. Family / Caregiver Present: Yes Diagnosis: CAD, s/p CABG x3 03/21 Follows Commands: Within Functional Limits Other (Comment): RN approved pt for PT treatment. General Comment Comments: PIV, tele Subjective Subjective: Pt seated in recliner. Agreeable to ambulation and P & C exercises. Review/recall all sternal precautions. Stated he has a headache and asked for ice pack for his head. Patient Stated Goal: to feel better Pain Assessment Pain Assessment: No/denies pain Cognition/Orientation Overall Cognitive Status: WFL Overall Orientation Status: Within Normal Limits Objective Transfers Sit to Stand: Minimal Assistance Stand to sit: Minimal Assistance Comment: Requires frequent verbal and tactile cues to maintain sternal precautions. Ambulation Ambulation: Yes Ambulation 1 Surface 1: Level tile Device 1: Rollator Assistance 1: Contact guard Quality of Gait 1: slow michelle, uneven step length, step to pattern Distance (ft) 1: 100' x 2 Comments 1: Required one rest break, cues for posture to decrease head-forward and flexion. Stairs Rails 1: Left Additional Factors: Non-reciprocal going up, Non-reciprocal going down, Increased time to complete,Hand placement cues Assistance 1: Minimum assistance Number of Steps 1: 4 Comment 1: used railing for guidance and was compliant with sternal precautions. Step-to pattern. Balance Posture: Good Sitting - Static: Good Sitting - Dynamic: Good Standing - Static: Good Standing - Dynamic: Good Comments: standing with forward head posture, CGA to balance Exercises Upper Extremity: P&C ex #1-9 all x 10 reps each Comments: reviewed handout for recall Other exercises Other exercises?: No Safety Safety Devices Type of Devices: All fall risk precautions in place, Call light within reach, Gait belt, No alarms engaged upon entry into room, Left in chair Restraints Restraints Initially in Place: No AM-PAC Score AM-PAC Inpatient Mobility Raw Score (No Stairs) : 15 Goals Encounter Problems Encounter Problems (Active) Cardiac Patient will perform bed mobility with independence in order to improve independence and prepare for out of bed mobility. (Not Addressed) Start: 03/22/23 Expected End: 04/05/23 Patient will complete sit to stand transfer with modified independence to LRD in order to improve safety and prepare for out of bed mobility. (Progressing) Start: 03/22/23 Expected End: 04/05/23 Patient will ambulate 600 feet or ambulate 5 minutes with modified independence with RPE of 14 or lower. (Progressing) Start: 03/22/23 Expected End: 04/05/23 Patient will ascend and descend 3 # stairs with modified independence rail for balance only. (Progressing) Start: 03/22/23 Expected End: 04/05/23 Patient will be independent with P&C exercises. (Progressing) Start: 03/22/23 Expected End: 04/05/23 Patient will be independent with managing secretions and home walking program. (Not Addressed) Start: 03/22/23 Expected End: 04/05/23 Education Education Given To: Family Education Provided: Goals, General Safety, Home Exercise Program, Precautions, Gait Training Education Method: Verbal Barriers to Learning: None Education Outcome: Verbalized understanding, Continued education needed Therapy Time Individual Co-treatment Time In 1042 Time Out 1134 Minutes 52 Timed Code Treatment Minutes: 52 Minutes (Gt, TP, FA) Followed all infection control protocol and wore PPE per facility guidelines. Shey Navarro PTA * Felipa White MD - 03/28/2023 11:04 AM EDT Department of Internal Medicine Division of Endocrinology, Diabetes, & Metabolism Endocrinology Note Patient Name: Robert Lipscomb : 1955 AGE: 67 y.o. Room/Bed: T1-126/T1-126 A Admission Date: 03/21/2023 Visit Date: 03/28/2023 Reason for Endocrine Consult: post op heart Provider/Team Requesting Consult: cts PCP: TEMO RODRIGUEZ Outpt Gluing Crew Leader: No ASSESSMENT: Type 2 DM with with hyperglycemia with intermodal customer service insulin use Recent hypoglycemia DEIDRE on CKD S/p CABG Obesity Body mass index is 44.3 kg/m . PLAN: BG variable GFR remains low Continue Lantus 36 units every morning Continue Humalog 14 units before meals with medium dose correction before meals Discussed insulin regimen. ICU goal <180 GMF goal <150 POCT BG qAC and HS Hypoglycemia per protocol Carb controlled diet Can resume GLP-1 RA (Victoza) outpt. Consider switching to weekly GLP-1 RA outpt. Stop Prandin. Pt will start Humalog at home. In future pt will benefit from SGLT-2 Inhibitor and CGM. ANTICIPATED ENDOCRINE HOME GOING RECOMMENDATIONS: Optimized for Discharge from Endocrine standpoint: yes Home Going Endocrine Rx Recommendations-- Tresiba and Humalog with current doses -- will need rx for Humalog and pen needles Resume Victoza 1.8 mg daily Stop Prandin Outpt Follow Up-- PCP SUBJECTIVE/HPI: CHIEF COMPLAINT: s/p CABG Type of DM: 2 Onset of DM: over 10 years per patient Home DM Medication Regimen: per chart lantus pens 70 am and 50 pm, victoza 1.8 mg daily; prandin 4 mg tid meals (not taking) DM control (last A1c/glucose data): Lab Results Component Value Date HGBA1C 7.9 (H) 03/11/2023 -no hypoglycemia -some BG above goal -appetite variable; has been snacking on sweets -ambulated a little today -still fatigued -no SOB or CP - will help at home -Estimated Creatinine Clearance: 38.8 mL/min (A) (by C-G formula based on SCr of 2.44 mg/dL (H)). Glucose Date/Time Value Ref Range Status 03/28/2023 08:18 AM 173 (H) 70 - 100 mg/dL Final 03/27/2023 05:54 PM 265 (H) 70 - 100 mg/dL Final 03/27/2023 12:33 PM 189 (H) 70 - 100 mg/dL Final 03/27/2023 08:07 AM 191 (H) 70 - 100 mg/dL Final 03/27/2023 06:41 AM 163 (H) 70 - 100 mg/dL Final 03/26/2023 05:32 PM 266 (H) 70 - 100 mg/dL Final Review of Systems ROS negative except for those mentioned in HPI. OBJECTIVE: Vitals: 03/28/23 0500 03/28/23 0518 03/28/23 0600 03/28/23 0800 BP: (!) 127/46 BP Location: Patient Position: Pulse: 69 70 70 Resp: Temp: 36.6 C (97.8 F) TempSrc: Oral SpO2: Weight: 295 lb (134 kg) Height: PF: Physical Exam Vitals and nursing note reviewed. Constitutional: General: He is awake. He is not in acute distress. Appearance: He is obese. Cardiovascular: Rate and Rhythm: Normal rate and regular rhythm. Pulmonary: Effort: Pulmonary effort is normal. No respiratory distress. Abdominal: Palpations: Abdomen is soft. Tenderness: There is no abdominal tenderness. Musculoskeletal: Right lower leg: Edema present. Left lower leg: Edema present. Skin: General: Skin is warm and dry. Comments: Intact chest incision Neurological: General: No focal deficit present. Mental Status: He is alert. Psychiatric: Mood and Affect: Mood normal. Behavior: Behavior is cooperative. 24 hour intake/output: Intake/Output Summary (Last 24 hours) at 03/28/2023 1104 Last data filed at 03/28/2023 0600 Gross per 24 hour Intake 1064 ml Output -- Net 1064 ml Diet: Adult diet Regular; 5 carb choices (75 gm/meal) Medications (as per EMR): HomeMeds: Current Outpatient Medications Medication Instructions amLODIPine (Norvasc) 5 MG tablet Daily Apoaequorin (Prevagen) 10 MG capsule No dose, route, or frequency recorded. aspirin 324 mg, Oral, Daily atenolol (Tenormin) 50 MG tablet No dose, route, or frequency recorded. chlorhexidine (Peridex) 0.12 % solution 15 mL, Mouth/Throat, Use night before and morning of surgery enalapril (Vasotec) 20 MG tablet No dose, route, or frequency recorded. insulin glargine (Lantus SoloStar) 100 UNIT/ML pen SubCUTAneous, 70 units in the morning, 50 units in the evening liraglutide (Victoza) 18 MG/3ML injection No dose, route, or frequency recorded. mupirocin (Bactroban) 2 % ointment Apply liberal amount per nostril the night before surgery and then again the morning of surgery nitroglycerin (NITROSTAT) 0.4 mg, SubLINGual, Every 5 min PRN repaglinide (PRANDIN) 4 mg, 3 times daily before meals rosuvastatin (Crestor) 20 MG tablet Nightly Scheduled Meds:acetaminophen, 1,000 mg, Oral, q8h aspirin, 81 mg, Oral, Daily atenolol, 50 mg, Oral, Daily cefepime, 2,000 mg, IntraVENous, q12h heparin, 5,000 Units, SubCUTAneous, BID insulin glargine, 36 Units, SubCUTAneous, q AM insulin lispro, 0-12 Units, SubCUTAneous, TID WC Insulin Lispro, 14 Units, SubCUTAneous, TID WC Lidocaine, 1 patch, Topical, Daily melatonin, 10 mg, Oral, Nightly pantoprazole, 40 mg, Oral, qAM AC rosuvastatin, 20 mg, Oral, Nightly senna-docusate sodium, 2 tablet, Oral, Nightly Continuous Infusions:lactated Ringer's, 50 mL/hr, Last Rate: 50 mL/hr (03/28/23 0215) PRN Meds:PRN medications: calcium gluconate, dextrose, dextrose, glucagon (rDNA), glucose, ipratropium-albuterol, ondansetron ODT OR ondansetron, oxyCODONE OR oxyCODONE, potassium chloride CR Diagnostic Workup: I reviewed pertinent Laboratory results, Radiographic results, and Other Clinical Notes at the timeof today's encounter. Labs: No components found for: LABA1C No components found for: EAG Lab Results Component Value Date NA 136 03/28/2023 K 3.5 03/28/2023 CL 100 03/28/2023 CO2 25 03/28/2023 BUN 79 (H) 03/28/2023 CREATININE 2.44 (H) 03/28/2023 GLUCOSE 165 (H) 03/28/2023 CALCIUM 8.5 03/28/2023 No results found for: CHLPL, CHOL No results found for: TRIG No results found for: HDL No results found for: LDLCALC No results found for: VLDL No results found for: CHOLHDLRATIO No results found for: [id number] No results found for: TSH, V7OHHAP, [id number], THYROIDAB Radiology reportsas per the Radiologist Radiology: ECG 12 lead Result Date: 03/21/2023 Sinus rhythm Right bundle branch block Probable inferior infarct, age indeterminate History/Other: Past Medical History: Past Medical History: Diagnosis Date Anemia Arthritis Coronary artery disease DM (diabetes mellitus) (HCC) History of transfusion HTN (hypertension) Hyperlipidemia RBBB Testicular cancer (HCC) Past Surgical History: Past Surgical History: Procedure Laterality Date ADENOIDECTOMY APPENDECTOMY COLONOSCOPY CORONARY STENT PLACEMENT 2004 LAP,INGUINAL HERNIA REPR,INITIAL (HISTORICAL) TONSILLECTOMY Allergy(ies): Allergies Allergen Reactions Amoxicillin Amoxicillin-Pot Clavulanate Atorvastatin Other Metformin Hcl Other Other pollen causes redness of eyes Pollen Extract Cough Clavulanic Acid Rash Metformin Diarrhea and Rash Family History: No family history on file. Social History: Social History Tobacco Use Smoking status: Never Smokeless tobacco: Never Vaping Use Vaping Use: Never used Substance Use Topics Alcohol use: Not Currently Drug use: Never Portions of the information within this encounter were entered using an electronic dictation system. Best attempts were made to edit/proofread the information prior to note completion. Despite the review of information, some errors may remain. If there are questions related to the information contained within the note please contact the signing physician directly. I spent 35 minutes with the pt which involved coordination of care, medical evaluation, review of records, and/or counseling of the pt regarding his/her condition/disease state/prognosis on the date of this note. * Courtney Ny, NATALIIA - 03/27/2023 3:04 PM EDT Nutrition Assessment Type and Reason for Visit: Reassess Nutrition Recommendations/Plan: Continue 4 carb choices (75 g/meal) diet as ordered. Can also consider regular diet to promote p.o.intake Per MNT protocol, will modify ONS to Magic Cup BID to promote ONS and overall p.o. intake ([id number] kcal, 9 g protein each) Pt and spouse received diet education as described in assessment. They have reference materials andACH RD phone number that was previously provided RD will continue to monitor overall nutrition status and follow weekly Diet Education: Educated on heart healthy diet Learners: Patient and Significant Other Readiness: Acceptance Method: Explanation and Handout Response: Verbalizes Understanding Contact name and number provided. Malnutrition Assessment: Malnutrition Status: At risk for malnutrition (Comment) Context: Acute Illness Findings of the 6 clinical characteristics of malnutrition: Energy Intake: 50% or less of estimated energy requirements for 5 or more days Weight Loss: No significant weight loss Body Fat Loss: No significant body fat loss Muscle Mass Loss: No significant muscle mass loss Fluid Accumulation: Mild Extremities Rn Birthing Strength: Not Performed Nutrition Assessment: Pt with PMH including CAD, drug-eluting stent to the RCA in 2004, RBBB, HTN, hyperlipidemia, anemia, and diabetes (A1C 7.8). Had presentation with mild chest pain prompting and subsequent stress testshowed ischemia prompting coronary angiogram . LHC showed MV CAD. Pt presented 03/21 and underwent CABG x3. POD #6. Pt is seen in room with spouse present as well. They report that pt has had continued poor appetite and p.o. intake. Spouse describes intake of ~50% at lunch, states he is not consuming ONS. RD provided Ensure over ice for pt to try without improved tolerance- he is agreeable to trial of Magic Cup. Spouse recent has completed diabetes diet class, however pt and spouse are interested in heart healthy diet education at this time. RD provided heart healthy diet instruction includingavoiding use of salt, limiting processed and other high sodium foods, limiting restaurant meals, reading nutrition labels, saturated vs unsaturated fats, choosing lean proteins and low fat diary, increasing fiber, whoe fruits and vegetable intake as well, choosing whole grains, etc. Pt was also advised that lowering his A1C would help to reduce his heart disease risk. Pt and spouse verbalized understanding and were without related questions at conclusion of education. Estimated Daily Nutrient Needs: Energy Requirements Based On: Kcal/kg Weight Used for Energy Requirements: [place] (25-30 kcal/kg) Weight for Energy Calculation (kg): 72.6 kg Total Energy Requirements (kcals/day): 8691-9750 Weight Used for Protein Requirements: [place] (1.2-1.5 g/kg) Weight in Kg Used for Protein Requirements: 72.6 kg Estimated Total Protein (g/day): 87-109 Estimated Daily Total Fluid (ml/day): or per MD Nutrition Related Findings: Nutrition History: Independent of feeding. Lives with: Spouse/significant other Teeth: Intact GI symptoms: Decreased appetite. Elmer Scale Score: 20 .Wound Type: Surgical Incision Net IO Since Admission: -1,781.18 mL [03/27/23 1504] Edema: RUE Edema: Trace, LUE Edema: Trace, RLE Edema: Mild pitting, slight indentation, LLE Edema: Mild pitting, slight indentation Bowel Sounds (All Quadrants): Active Abdomen Inspection: Rounded Last BM Date: 03/26/23 Labs and meds reviewed: acetaminophen, 1,000 mg, Oral, q8h aspirin, 81 mg, Oral, Daily atenolol, 50 mg, Oral, Daily heparin, 5,000 Units, SubCUTAneous, BID insulin glargine, 36 Units, SubCUTAneous, q AM insulin lispro, 0-12 Units, SubCUTAneous, TID WC Insulin Lispro, 14 Units, SubCUTAneous, TID WC Lidocaine, 1 patch, Topical, Daily melatonin, 10 mg, Oral, Nightly pantoprazole, 40 mg, Oral, qAM AC rosuvastatin, 20 mg, Oral, Nightly senna-docusate sodium, 2 tablet, Oral, Nightly BMP: Recent Labs 03/25/23 0322 03/26/23 0030 03/26/23 0145 03/26/23 0802 03/26/23 1315 03/27/23 0527 NA 138 140 -- 137 134* 136 K 3.7 3.3* -- 3.9 4.3 3.6 CL 102 103 -- 101 98 102 CO2 27 25 -- 22 21* 20* BUN 41* 51* -- 59* 63* 78* CREATININE 1.75* 2.35* -- 2.57* 2.52* 2.87* GLUCOSE 161* 48* < > 119* 244* 121* CALCIUM 8.5 9.0 -- 8.5 8.5 7.8* MG 1.9 2.7* -- -- -- 2.5* < > = values in this interval not displayed. Recent Labs 03/26/23 0805 03/26/23 1158 03/26/23 1732 03/27/23 0641 03/27/23 0807 03/27/23 1233 POCGLU 120* 185* 266* 163* 191* 189* Lab Results Component Value Date HGBA1C 7.9 (H) 03/11/2023 Lab Results Component Value Date LVEFPHYS 55 03/21/2023 Current Nutrition Therapies: Adult diet Regular; 5 carb choices (75 gm/meal) Current Oral Intake Average Meal Intake: 26-50%, 51-75%, 76-100% Average Supplements Intake: Refusing to take, 0% Anthropometric Measures: Height: 175.3 cm (5' 9) Current Body Weight: 133 kg (294 lb) Admission Body Weight: 136 kg (300 lb) (stated) [place] Body Weight (lbs) (Calculated): 160 lbs [place]une[place] Body Weight (Kg) (Calculated): 73 kg % [place] Body Weight (Calculated): 184.6 % BMI (kg/m2) (Calculated): 43.4 BMI Categories: Obese Class 3 (BMI 40.0 or greater) Wt Readings from Last 10 Encounters: 03/27/23 133 kg (294 lb) 03/11/23 135 kg (298 lb 8 oz) 02/27/23 135 kg (298 lb 6.4 oz) Nutrition Diagnosis: Increased nutrient needs related to increase demand for energy/nutrients as evidenced by wounds (sugical) Nutrition Interventions: Food and/or Nutrient Delivery: Continue Current Diet, Modify Oral Nutrition Supplement Nutrition Education/Counseling: Education completed Coordination of Nutrition Care: Continue to monitor while inpatient Goals: Goals: PO intake 75% or greater, prior to discharge Nutrition Monitoring and Evaluation: Behavioral-Environmental Outcomes: Knowledge or Skill Food/Nutrient Intake Outcomes: Food and Nutrient Intake, Supplement Intake Physical Signs/Symptoms Outcomes: Biochemical Data, Chewing or Swallowing, GI Status, Nausea or Vomiting, Fluid Status or Edema, Skin, Weight Discharge Planning: Too soon to determine Courtney Ny RD, LD Contact: *[phone] or via [employer] chat * Malinda Hurtado, PT - 03/27/2023 2:24 PM EDT Physical Therapy Facility/Department: [facility] Physical Therapy Daily Treatment Note NAME: Shane Lipscomb : 1955 Date of Service: 03/27/2023 Discharge Recommendations: Home with Home health PT PT Equipment Recommendations Equipment Needed: No Other: own rollator Assessment Requires PT Follow-Up: Yes Assessment: Pt continues to require min A for transfers and CGA for amb with rollator with mild path deviation but no LOB noted. Pt also continues to decline more appropriately sized rollator for ambreporting that he will use this one at home. Cues needed for sternal precautions particularly with transfer tasks. Rec home upon discharge, pt not agreeable to P& C exercises at this time. Performance Deficits/Impairments: Decreased functional mobility , Decreased ADL status, Decreased strength, Decreased endurance, Decreased ROM, Decreased posture Patient Diagnosis(es): The primary encounter diagnosis was CAD in [place] artery. Diagnoses of Aneurysm of ascending aorta without rupture (HCC) and Coronary atherosclerosis due to calcified coronary lesion (CODE) were also pertinent to this visit. has a past medical history of Anemia, Arthritis, Coronary artery disease, DM (diabetes mellitus) (HCC), History of transfusion, HTN (hypertension), Hyperlipidemia, RBBB, and Testicular cancer (HCC). has a past surgical history that includes lap,inguinal hernia repr,initial (historical); Colonoscopy; Appendectomy; Coronary stent placement (2004); Tonsillectomy; and Adenoidectomy. Restrictions Restrictions/Precautions Restrictions/Precautions: General Precautions, Fall Risk Required Braces or Orthoses?: No Position Activity Restriction Sternal Precautions: No Pushing, No Pulling, 10# Lifting Restrictions Other position/activity restrictions: PIV, tele. BP prior to treatment 107/42 --per RN pt has been running low today, and was cleared to work with PT. Vision/Hearing Subjective General Chart Reviewed: Yes Patient Assessed for Rehabilitation Services: Yes Response To Previous Treatment: Patient with no complaints from previous session. Family / Caregiver Present: Yes (Daughter and spouse present during treatment with pt approval) Diagnosis: CAD, s/p CABG x3 03/21 Follows Commands: Within Functional Limits Other (Comment): RN approved pt for PT treatment. General Comment Comments: PIV, tele Subjective Subjective: Pt seated in recliner with family present, just finished lunch tray. Not agreeable to P& C exercises but agreeable to amb. 2/3 recall of sternal precautions. Reports neck /back pain--chronic Patient Stated Goal: to feel better Pain Assessment Pain Type: Chronic pain Pain Location: Neck, Back Pain Interventions: Other (Comment) (mobility, change in position) Cognition/Orientation Overall Cognitive Status: WFL Overall Orientation Status: Within Normal Limits Objective Bed mobility Sit to Supine: Moderate assistance Scooting: Supervision (seated scooting supv with VC to maintain sternal precautions.) Transfers Sit to Stand: Minimal Assistance Stand to sit: Minimal Assistance Comment: Min A from recliner and EOB. increased time to complete tasks and verbal + manual cues to maintain sternal precautions. Reports dizziness intially with standing, improves prior to amb. Ambulation Ambulation: Yes Ambulation 1 Surface 1: Level tile Device 1: Rollator Assistance 1: Contact guard Quality of Gait 1: slow michelle, uneven step length Quality of Gait Comment 1: decrease step length, flexed posture Distance (ft) 1: 160'x1 Comments 1: Intermittent standing rest breaks with amb, cues for improved posture Balance Sitting - Static: Good Sitting - Dynamic: Good Standing - Static: Good, - Standing - Dynamic: Good, - Plan Times per Week: 5-7x Plan Weeks: 2 wks Current Treatment Recommendations: Strengthening, Balance Training, Gait Training, Stair training, Functional Mobility Training, Transfer Training, ADL/Self-care Training, IADL Training, Endurance Training, Equipment Evaluation, Education, & procurement, Patient/Caregiver Education & Training, Safety Education & Training, Home Exercise Program Safety Safety Devices Safety Devices in Place: Yes Type of Devices: All fall risk precautions in place, Call light within reach, Gait belt, Nurse notified, No alarms engaged upon entry into room, Left in bed Restraints Restraints Initially in Place: No Outcomes Score AM-PAC Score AM-PAC Inpatient Mobility Raw Score (No Stairs) : 15 Goals Encounter Problems Encounter Problems (Active) Cardiac Patient will perform bed mobility with independence in order to improve independence and prepare for out of bed mobility. (Progressing) Start: 03/22/23 Expected End: 04/05/23 Patient will complete sit to stand transfer with modified independence to LRD in order to improve safety and prepare for out of bed mobility. (Progressing) Start: 03/22/23 Expected End: 04/05/23 Patient will ambulate 600 feet or ambulate 5 minutes with modified independence with RPE of 14 or lower. (Progressing) Start: 03/22/23 Expected End: 04/05/23 Patient will ascend and descend 3 # stairs with modified independence rail for balance only. (Not Addressed) Start: 03/22/23 Expected End: 04/05/23 Patient will be independent with P&C exercises. (Not Addressed) Start: 03/22/23 Expected End: 04/05/23 Patient will be independent with managing secretions and home walking program. (Not Addressed) Start: 03/22/23 Expected End: 04/05/23 Education Education Given To: Family, Patient Education Provided: Goals, General Safety, Gait Training, Plan of Care, Transfer Training, Precautions, Functional Mobility Training Education Provided Comments: sternal precautions Education Method: Verbal Barriers to Learning: None Education Outcome: Verbalized understanding, Continued education needed Therapy Time Individual Co-treatment Time In 1333 Time Out 1405 Minutes 32 Timed Code Treatment Minutes: 28 Minutes (gt, FA) Variance: 4 (speaking with RN) Pt's physical therapy POC supervision is transferred to [facility] Re[facility] Dept Physical Therapist. Malinda Hurtado PT * Felipa White MD - 03/27/2023 10:13 AM EDT Department of Internal Medicine Division of Endocrinology, Diabetes, & Metabolism Endocrinology Note Patient Name: Robert Lipscomb : 1955 AGE: 67 y.o. 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 PLAN: No further hypoglycemia episodes GFR remains low Continue Lantus 36 units every morning - gave new dose today Increase Humalog to 14 units before meals with medium dose correction before meals Discussed insulin regimen. ICU goal <180 GMF goal <150 POCT BG qAC and HS Hypoglycemia per protocol Carb controlled diet Can resume GLP-1 RA (Victoza) outpt. Consider switching to weekly GLP-1 RA outpt. Stop Prandin. Pt will start Humalog at home. In future pt will benefit from SGLT-2 Inhibitor and CGM. ANTICIPATED ENDOCRINE HOME GOING RECOMMENDATIONS: Optimized for Discharge from Endocrine standpoint: No Home Going Endocrine Rx Recommendations-- Tresiba and Humalog with doses TBD -- will need rx for Humalog and pen needles Resume Victoza 1.8 mg daily Stop Prandin Outpt Follow Up-- PCP SUBJECTIVE/HPI: CHIEF COMPLAINT: s/p CABG Type of DM: 2 Onset of DM: over 10 years per patient Home DM Medication Regimen: per chart lantus pens 70 am and 50 pm, victoza 1.8 mg daily; prandin 4 mg tid meals (not taking) DM control (last A1c/glucose data): Lab Results Component Value Date HGBA1C 7.9 (H) 03/11/2023 -no hypoglycemia -BG higher -no more diarrhea -appetite variable; had cookie for BF today -ambulated a little today -fatigued -Estimated Creatinine Clearance: 32.8 mL/min (A) (by C-G formula based on SCr of 2.87 mg/dL (H)). Glucose Date/Time Value Ref Range Status 03/27/2023 08:07 AM 191 (H) 70 - 100 mg/dL Final 03/27/2023 06:41 AM 163 (H) 70 - 100 mg/dL Final 03/26/2023 05:32 PM 266 (H) 70 - 100 mg/dL Final 03/26/2023 11:58 AM 185 (H) 70 - 100 mg/dL Final 03/26/2023 08:05 AM 120 (H) 70 - 100 mg/dL Final 03/26/2023 05:00 AM 114 (H) 70 - 100 mg/dL Final Review of Systems ROS negative except for those mentioned in HPI. OBJECTIVE: Vitals: 03/27/23 0927 03/27/23 0928 03/27/23 0941 03/27/23 1000 BP: (!) 89/31 (!) 83/29 (!) 95/34 (!) 101/41 Pulse: 62 61 64 64 Resp: Temp: TempSrc: SpO2: Weight: Height: PF: Physical Exam Vitals and nursing note reviewed. Constitutional: General: He is awake. He is not in acute distress. Appearance: He is obese. Cardiovascular: Rate and Rhythm: Normal rate and regular rhythm. Heart sounds: Normal heart sounds. Pulmonary: Effort: Pulmonary effort is normal. No respiratory distress. Breath sounds: Normal breath sounds. Abdominal: Palpations: Abdomen is soft. Tenderness: There is no abdominal tenderness. Skin: General: Skin is warm and dry. Comments: Intact chest incision Neurological: General: No focal deficit present. Mental Status: He is alert. Psychiatric: Mood and Affect: Mood normal. Behavior: Behavior is slowed. 24 hour intake/output: Intake/Output Summary (Last 24 hours) at 03/27/2023 1013 Last data filed at 03/26/2023 1803 Gross per 24 hour Intake 1550 ml Output -- Net 1550 ml Diet: Adult diet Regular; 5 carb choices (75 gm/meal) Medications (as per EMR): HomeMeds: Current Outpatient Medications Medication Instructions amLODIPine (Norvasc) 5 MG tablet Daily Apoaequorin (Prevagen) 10 MG capsule No dose, route, or frequency recorded. aspirin 324 mg, Oral, Daily atenolol (Tenormin) 50 MG tablet No dose, route, or frequency recorded. chlorhexidine (Peridex) 0.12 % solution 15 mL, Mouth/Throat, Use night before and morning of surgery enalapril (Vasotec) 20 MG tablet No dose, route, or frequency recorded. insulin glargine (Lantus SoloStar) 100 UNIT/ML pen SubCUTAneous, 70 units in the morning, 50 units in the evening liraglutide (Victoza) 18 MG/3ML injection No dose, route, or frequency recorded. mupirocin (Bactroban) 2 % ointment Apply liberal amount per nostril the night before surgery and then again the morning of surgery nitroglycerin (NITROSTAT) 0.4 mg, SubLINGual, Every 5 min PRN repaglinide (PRANDIN) 4 mg, 3 times daily before meals rosuvastatin (Crestor) 20 MG tablet Nightly Scheduled Meds:acetaminophen, 1,000 mg, Oral, q8h aspirin, 81 mg, Oral, Daily atenolol, 50 mg, Oral, Daily heparin, 5,000 Units, SubCUTAneous, BID insulin glargine, 36 Units, SubCUTAneous, q AM insulin lispro, 0-12 Units, SubCUTAneous, TID WC Insulin Lispro, 12 Units, SubCUTAneous, TID WC lactated ringers, 500 mL, IntraVENous, Once Lidocaine, 1 patch, Topical, Daily melatonin, 10 mg, Oral, Nightly pantoprazole, 40 mg, Oral, qAM AC rosuvastatin, 20 mg, Oral, Nightly senna-docusate sodium, 2 tablet, Oral, Nightly Continuous Infusions: PRN Meds:PRN medications: calcium gluconate, dextrose, dextrose, glucagon (rDNA), glucose, ipratropium-albuterol, ondansetron ODT OR ondansetron, oxyCODONE OR oxyCODONE, potassium chloride CR Diagnostic Workup: I reviewed pertinent Laboratory results, Radiographic results, and Other Clinical Notes at the timeof today's encounter. Labs: No components found for: LABA1C No components found for: EAG Lab Results Component Value Date NA 136 03/27/2023 K 3.6 03/27/2023 CL 102 03/27/2023 CO2 20 (L) 03/27/2023 BUN 78 (H) 03/27/2023 CREATININE 2.87 (H) 03/27/2023 GLUCOSE 121 (H) 03/27/2023 CALCIUM 7.8 (L) 03/27/2023 No results found for: CHLPL, CHOL No results found for: TRIG No results found for: HDL No results found for: LDLCALC No results found for: VLDL No results found for: CHOLHDLRATIO No results found for: [id number] No results found for: TSH, [id number], [id number], THYROIDAB Radiology reportsas per the Radiologist Radiology: ECG 12 lead Result Date: 03/21/2023 Sinus rhythm Right bundle branch block Probable inferior infarct, age indeterminate History/Other: Past Medical History: Past Medical History: Diagnosis Date Anemia Arthritis Coronary artery disease DM (diabetes mellitus) (HCC) History of transfusion HTN (hypertension) Hyperlipidemia RBBB Testicular cancer (HCC) Past Surgical History: Past Surgical History: Procedure Laterality Date ADENOIDECTOMY APPENDECTOMY COLONOSCOPY CORONARY STENT PLACEMENT 2004 LAP,INGUINAL HERNIA REPR,INITIAL (HISTORICAL) TONSILLECTOMY Allergy(ies): Allergies Allergen Reactions Amoxicillin Amoxicillin-Pot Clavulanate Atorvastatin Other Metformin Hcl Other Other pollen causes redness of eyes Pollen Extract Cough Clavulanic Acid Rash Metformin Diarrhea and Rash Family History: No family history on file. Social History: Social History Tobacco Use Smoking status: Never Smokeless tobacco: Never Vaping Use Vaping Use: Never used Substance Use Topics Alcohol use: Not Currently Drug use: Never Portions of the information within this encounter were entered using an electronic dictation system. Best attempts were made to edit/proofread the information prior to note completion. Despite the review of information, some errors may remain. If there are questions related to the information contained within the note please contact the signing physician directly. I spent 35 minutes with the pt which involved coordination of care, medical evaluation, review of records, and/or counseling of the pt regarding his/her condition/disease state/prognosis on the date of this note. * Jonathan Schwarz Haley, CLINICAL PHARMACY COORDINATOR - TELECOM BILLING ANALYST - 03/27/2023 6:43 AM EDT Images from the original note were not included. Cardiothoracic Surgery/[facility] Progress Note PATIENT NAME: Robert Lipscomb DATE: 03/27/23 HPI: Mr. Robert Lipscomb is a 67 year old male patient with a PMHx that includes CAD s/p SUZETTE tp RCA (2004), RBBB, HTN, HLD, anemia and diabetes (A1c 7.9). He was referred to CT Surgery by Dr. Armendariz. Patienthad underwent coronary cath and was found to have severe multivessel CAD. He was seen in the OP setting by Dr. Childress. He consented and was scheduled for CABG on 03/21/23. Surgery/Procedure: 03/21/23: Dr. Childress- CABGx3 (PIERSON-LAD, SVG-OM, SVG-RPDA), LEVH Interval History: 03/26/23, POD# 06 no acute changes overnight - pt does have a productive cough no fevers - remains on 2L NC O2 - creat still elevated - pain well controlled. Review of Systems Constitutional: Negative for diaphoresis, fatigue and fever. Respiratory: Negative for cough, shortness of breath and wheezing. Cardiovascular: Negative for chest pain, palpitations and leg swelling. Gastrointestinal: Negative for abdominal distention, constipation and diarrhea. Skin: Negative for color change, pallor and rash. Objective: Last BM Date: 03/26/23 Negative 2.2L Vitals: BP: (!) 112/49, MAP (mmHg): 67, BP Method: Automatic Heart Rate: 66 Resp: 16 Temp: 36.9 C (98.5 F), Temp Source: Temporal BMI (Calculated): 43.4 CXR: BMP: Recent Labs 03/25/23 0322 03/26/23 0030 03/26/23 0802 03/26/23 1315 03/27/23 0527 NA 138 140 137 134* 136 K 3.7 3.3* 3.9 4.3 3.6 CL 102 103 101 98 102 CO2 27 25 22 21* 20* BUN 41* 51* 59* 63* 78* CREATININE 1.75* 2.35* 2.57* 2.52* 2.87* CALCIUM 8.5 9.0 8.5 8.5 7.8* MG 1.9 2.7* -- -- 2.5* CBC: Recent Labs 03/26/23 0030 03/26/23 0802 03/27/23 0527 WBC 18.0* 14.8* 13.9* HGB 11.1* 10.8* 9.3* HCT 33.6* 33.1* 28.3* PLT 275 229 205 MCV 85.0 86.5 87.4 RDW 14.5 14.6* 14.9* INR: No results for input(s): INR in the last 72 hours. Physical Exam Cardiovascular: Rate and Rhythm: Normal rate and regular rhythm. Heart sounds: Normal heart sounds. No murmur heard. No friction rub. Pulmonary: Effort: Pulmonary effort is normal. Skin: General: Skin is warm and dry. Capillary Refill: Capillary refill takes less than 2 seconds. Findings: Bruising and ecchymosis present. Neurological: Mental Status: He is alert. Psychiatric: Behavior: Behavior is cooperative. Assessment: CAD s/p CABGx3 HTN HLD DM (A1c 7.9) RBBB Post operative Pulm Management: Normal Post-operative Course Post-operative Atrial Fibrillation: []Yes [x] No Acute blood loss anemia/consumptive thrombocytopenia Plan: Patient Status: Telemetry Creatinine bumped -1.78->1.75->2.35 ->2.85 Gentle hydrate today DC all nephrotoxic drugs DC lasix. WBC 13 cough noted no fevers or tachy CXR shows atelectasis in the bases - potentially start unasym if ok with CCM Continue aspirin, statin and BB. Encourage PO intake. Endocrinology DVT prophy. Endocrinology following for blood glucose management. PT/OT: Home with home health PT (03/26/23) Pulmonary hygiene: IS and Acapella GI prophy: PO protonix DVT prophy:TEDs, SCDs, and Heparin SubQ Disposition: Home by the end of the week after renal recovery Central Line: []Yes [x] No Arterial Line: []Yes [x] No Meyer: []Yes [x] No Restraints: []Yes [x] No Patient discussed and plan of day developed from multidisciplinary rounds between Cardiothoracic Surgery (Cardiothoracic Surgeon, MARIANO) and Critical Care Attending Cardiac Core Medications: ASA, Statin, and BB EF: 55% (03/21/23) Blood Conservation: None noted in post-operative period Blindstitch Hemmer: Dr. Armendariz Associated attestation - Kuldeep Alvardao MD - 03/27/2023 1:19 PM EDT I have personally performed a face to face diagnostic evaluation on this patient today on 03/27/23.Labs, imaging studies, and electronic medical record notes on In Flow have been reviewed by me. This note documented and discussed by the []sergeant of officers []Fellow [x] MARIANO reflects my history, exam and medical decision making. I have reviewed and agree with the care plan. Changes were made in the orders as necessary. ROS documentation was reviewed and negative unless otherwise stated in the HPI. My history, exam, assessment and plan are as follows: Time spent for coordination of care: a subsequent visit: 35 minutes (Level II) Awake, in chair, no fevers/chills, no invasive lines, has a cough Resp unlabored Severe CAD 03/21 s/p CABG x 3 Expected anemia post op HTN, HLD DEIDRE Cr 2.57, baseline Cr 1.37 CKD3 DM2 with hyperglycemia Obesity class III Monitor CBC and renal function, IVF hydration Check resp culture and pneumonia pcr, procal * Zoran Argueta, OT - 03/26/2023 3:42 PM EDT Images from the original note were not included. Occupational Therapy OCCUPATIONAL THERAPY [facility] Initial Evaluation Name/MRN: Shane Lipscomb ([id number]) Evaluation Date: 03/26/2023 Date of : 1955 Admission Date: 03/21/2023 5:38 AM Age: 67 y.o. Room/Bed: T1-126/T1-126 A Discharge Recommendation: Home with Home OT and Home with 24/7 Assist Equipment Needed: front wheeled walker and tub transfer bench Assessment IMPRESSION: Admitted s/p CABG x3 03/21, sternal precautions. Home with , indep with ADL at baseline and was not using device for mob. Pt up in chair, reporting incisional pain and neck pain, RN inroom for meds. Demos SBA fxl transfers from chair, requires cues for sternal precautions and hand placement during transitional movements. Currently max A for LB dressing and will benefit from AE training. Pt will need tub transfer bench for main level bathing. Most appropriate for home with familyand home therapies. Performance Deficits /Impairments: Decreased Functional Mobility, Decreased ADL status, Decreased Strength, Decreased Safety Awareness, Decreased Endurance, Decreased Balance, and Decreased High Level IADLs Prognosis: Good Decision Making: Low Complexity Subjective Up in chair, agreeable. Pain: 0-10 pain scale: 7/10 Location: incision, neck Past Medical History: Past Medical History: Diagnosis Date Anemia Arthritis Coronary artery disease DM (diabetes mellitus) (HCC) History of transfusion HTN (hypertension) Hyperlipidemia RBBB Testicular cancer (HCC) Past Surgical History: Past Surgical History: Procedure Laterality Date ADENOIDECTOMY APPENDECTOMY COLONOSCOPY CORONARY STENT PLACEMENT 2004 LAP,INGUINAL HERNIA REPR,INITIAL (HISTORICAL) TONSILLECTOMY Admission Diagnosis: Patient Active Problem List Diagnosis Date Noted CAD in [place] artery 03/21/2023 HTN (hypertension) 03/11/2023 Coronary atherosclerosis 02/22/2023 Diabetic retinopathy (HCC) 02/22/2023 Elevated hemidiaphragm 02/22/2023 Obesity, Class III, BMI 40-49.9 (morbid obesity) (HCC) 10/23/2017 Mixed hyperlipidemia 09/23/2007 Diverticulosis of colon (without mention of hemorrhage) 05/30/2007 Past heart attack 04/22/2005 Diabetes type 2, controlled ([facility]) 11/21/1991 Testicular cancer ([facility]) 02/20/1982 Medical Precautions: No active isolations Proper PPE donned/doffed in accordance with facility standards. Fall Risk: Alvarez Fall Risk Score: 60 (High Risk) Precautions/Restrictions: Sternal Precautions: No Pushing, No Pulling, No Lifting Greater Than 10 lbs Family/Caregiver Present: spouse Overall Cognitive Status: WFL Overall Orientation Status: Oriented x4 Social/Functional History Patient admitted from home. Lives With: Spouse Type of Home: single family home Home Layout: Single Level Home Bathroom Shower/Tub: Tub/Shower Combo Toilet: Handicap Height Home Equipment: none Homemaking Responsibilities: Independent Receives Help From: None Active Regulation Supervisor: Yes Prior Level of Function ADL Assistance: Independent Ambulation Assistance: Independent Transfer Assistance: Independent Objective ADLs Toileting: Max Assist, will benefit from AE Upper Extremity Assessment AROM: Exceptions: WFL within restrictions PROM: Not assessed this session Strength: Exceptions: WFL within restrictions Tremors: no Coordination: WNL Tone: WNL Sensation: WNL Vision: not assessed this session Hearing: normal Hand dominance: N/A Bed Mobility Up in chair Transfers/Functional Mobility Sit to stand: SBA Stand to sit: SBA Standing balance: SBA Functional mobility: Contact Guard Device(s) used: rollator AM-PAC AM-PAC Inpatient Daily Activity Raw Score: 18 ADL Inpatient CMS G-Code Modifier: CK Plan Pt would benefit from skilled acute OT services to address Strengthening, Balance Training, Functional Mobility Training, Endurance Training, Gait Training, Pain Management, Safety Education and Training, Patient/Caregiver Training, and Self-Care/ADL Training. Frequency: 5-7x/week for 4 weeks Barriers: Pain and safety with sternal precautions Prognosis: excellent Safety/Education Safety Safety Devices in place: All fall risk precautions in place, call light within reach, left in chair, and nurse notified Restraints: No Education Education Given To: patient Education Provided: OT Role, Plan of Care, and Precautions Education Method: Verbal Barriers to Learning: None Education Outcome: Verbalized Understanding Goals Patient Stated Goal: Home Encounter Problems Encounter Problems (Active) Balance Patient will maintain dynamic standing balance for 5 minutes with modified independence in order todemonstrate decreased risk of falling. Start: 03/26/23 Expected End: 04/23/23 Dressings Lower Extremities Patient will dress lower body with AE mod indep Start: 03/26/23 Expected End: 04/23/23 Grooming Patient will complete grooming standing at sink in FWW mod indep Start: 03/26/23 Expected End: 04/23/23 Instrumental Activities of Daily Living Patient will demo use of energy conservation/work simplification techs during ADL without cues Start: 03/26/23 Expected End: 04/23/23 Safety Patient will adhere to sternal precautions during all functional mobility and ADLs in order to demonstrate improved understanding and promote healing post op. Start: 03/26/23 Expected End: 04/23/23 Patient will demo FWW safety during ADLs no cues Start: 03/26/23 Expected End: 04/23/23 Toileting Patient will complete toileting mod indep Start: 03/26/23 Expected End: 04/23/23 Therapy Time Individual Co-treatment Time In 1358 Time Out 1420 Minutes 22 Zoran Argueta OT Patient's Occupational Therapy Plan of Care supervision is transferred to a [facility] Occupational Therapist. Goals and/or treatment plan was established in collaboration with patient/family/other representatives. * Rachael Greenwood, ORTHOTIC AND PROSTHETIC TECHNICIAN - 03/26/2023 2:33 PM EDT Physical Therapy Facility/Department: [facility] Physical Therapy Daily Treatment Note NAME: Shane Lipscomb : 1955 Date of Service: 03/26/2023 Discharge Recommendations: Home with Home health PT PT Equipment Recommendations Equipment Needed: No Other: own rollator Assessment Assessment: Pt min assist for transfer and CGA for gait. INCREASE time to complete all task. Delay's task, for example I need a cup filled with ice and some sprite in it before I can do that, thiscan be thrown away, I need more to drink before I walk and I need a pillow on each side of me and 1 for my head to start my exercises. brought rollator, not correct size for pt, pt declinedlarger size despite education. Ongoing cues for sternal precautions during transfers. Cues to increase ROM with P&C exercises. Wet, productive cough. Rec home upon discharge. Performance Deficits/Impairments: Decreased functional mobility , Decreased ADL status, Decreased strength, Decreased endurance, Decreased ROM, Decreased posture Patient Diagnosis(es): The primary encounter diagnosis was CAD in [place] artery. Diagnoses of Aneurysm of ascending aorta without rupture (HCC) and Coronary atherosclerosis due to calcified coronary lesion (CODE) were also pertinent to this visit. has a past medical history of Anemia, Arthritis, Coronary artery disease, DM (diabetes mellitus) (HCC), History of transfusion, HTN (hypertension), Hyperlipidemia, RBBB, and Testicular cancer (HCC). has a past surgical history that includes lap,inguinal hernia repr,initial (historical); Colonoscopy; Appendectomy; Coronary stent placement (2004); Tonsillectomy; and Adenoidectomy. Restrictions Restrictions/Precautions Restrictions/Precautions: General Precautions, Fall Risk Required Braces or Orthoses?: No Position Activity Restriction Sternal Precautions: No Pushing, No Pulling, 10# Lifting Restrictions Other position/activity restrictions: PIV, tele Subjective General Chart Reviewed: Yes Patient Assessed for Rehabilitation Services: Yes Response To Previous Treatment: Not applicable Family / Caregiver Present: Yes ( and daughter) Diagnosis: CAD, s/p CABG x3 03/21 Follows Commands: Within Functional Limits Subjective Subjective: Pt on toilet, just finished having a BM, agreeable to PT. RN cleared pt for therapy. Noreal c/o pain, just tired. Objective Bed mobility Comment: NT- pt ended in chair Transfers Sit to Stand: Minimal Assistance Stand to sit: Minimal Assistance Comment: x3 reps; toilet x 1 and chair x 2. Increase time, ongoing cues for sternal precautions. Delay's task for example one more drink before I do that. Ambulation Ambulation: Yes Ambulation 1 Surface 1: Level tile Device 1: Rollator Assistance 1: Contact guard Quality of Gait 1: slow michelle, uneven step length Quality of Gait Comment 1: decrease step length, flexed posture Distance (ft) 1: 15ft Comments 1: increase time, cues for posture awareness, requested seated rest break before ambulating further distance. Ambulation 2 Surface 2: Level tile Device 2: Rollator Assistance 2: Contact guard Quality of Gait 2: slow michelle, uneven step length Quality of Gait Comment 2: see above Distance (ft) 2: 200ft Comments 2: increase time, 2 standing rest break, fatigue and decrease endurance. Balance Comments: standing at sink for hand hygiene, flexed posture, CGA for balance. Exercises Upper Extremity: P&C ex #1-9 all x 10 reps each Plan Times per Week: 5-7x Plan Weeks: 2 wks Current Treatment Recommendations: Strengthening, Balance Training, Gait Training, Stair training, Functional Mobility Training, Transfer Training, ADL/Self-care Training, IADL Training, Endurance Training, Equipment Evaluation, Education, & procurement, Patient/Caregiver Education & Training, Safety Education & Training, Home Exercise Program Safety Safety Devices Safety Devices in Place: Yes Type of Devices: All fall risk precautions in place, Call light within reach, Gait belt, Nurse notified, No alarms engaged upon entry into room, Left in chair AM-PAC Score AM-PAC Inpatient Mobility Raw Score (No Stairs) : 15 Goals Encounter Problems Encounter Problems (Active) Cardiac Patient will perform bed mobility with independence in order to improve independence and prepare for out of bed mobility. (Not Addressed) Start: 03/22/23 Expected End: 04/05/23 Patient will complete sit to stand transfer with modified independence to LRD in order to improve safety and prepare for out of bed mobility. (Progressing) Start: 03/22/23 Expected End: 04/05/23 Patient will ambulate 600 feet or ambulate 5 minutes with modified independence with RPE of 14 or lower. (Progressing) Start: 03/22/23 Expected End: 04/05/23 Patient will ascend and descend 3 # stairs with modified independence rail for balance only. (Not Addressed) Start: 03/22/23 Expected End: 04/05/23 Patient will be independent with P&C exercises. (Progressing) Start: 03/22/23 Expected End: 04/05/23 Patient will be independent with managing secretions and home walking program. (Progressing) Start: 03/22/23 Expected End: 04/05/23 Education Education Given To: Family, Patient Education Provided: Goals, General Safety, Gait Training, Plan of Care, Discharge recommendations, Home Exercise Program, Transfer Training Education Provided Comments: P&C therex, mobility needs, sternal precautions, proper rollator for size of patient. Education Method: Verbal Barriers to Learning: None Education Outcome: Verbalized understanding, Continued education needed Therapy Time Individual Co-treatment Time In 1231 Time Out 1309 Minutes 38 Timed Code Treatment Minutes: 38 Minutes (fa; tp; gait) Rachael Greenwood PTA * Felipa White MD - 03/26/2023 11:24 AM EDT Department of Internal Medicine Division of Endocrinology, Diabetes, & Metabolism Endocrinology Note Patient Name: Robert Lipscomb : 1955 AGE: 67 y.o. 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 PLAN: Hypoglycemia overnight; BG now improved Reduce Lantus 36 units every morning - gave new dose today Reduce Humalog 12 units before meals with medium dose correction before meals Discussed insulin regimen. ICU goal <180 GMF goal <150 POCT BG qAC and HS Hypoglycemia per protocol Carb controlled diet Confirmed pt taking Victoza at home. Can resume GLP-1 RA (Victoza) outpt. Consider switching to weekly GLP-1 RA outpt. Stop Prandin. Pt will start Humalog at home. In future pt will benefit from SGLT-2 Inhibitor and CGM. ANTICIPATED ENDOCRINE HOME GOING RECOMMENDATIONS: Optimized for Discharge from Endocrine standpoint: No Home Going Endocrine Rx Recommendations-- Tresiba and Humalog with doses TBD -- will need rx for Humalog and pen needles Resume Victoza 1.8 mg daily Stop Prandin Outpt Follow Up-- PCP SUBJECTIVE/HPI: CHIEF COMPLAINT: s/p CABG Type of DM: 2 Onset of DM: over 10 years per patient Home DM Medication Regimen: per chart lantus pens 70 am and 50 pm, victoza 1.8 mg daily; prandin 4 mg tid meals (not taking) DM control (last A1c/glucose data): Lab Results Component Value Date HGBA1C 7.9 (H) 03/11/2023 -pt had BG 40 overnight; was symptomatic -BG up to 120 this AM after tx -had diarrhea, now improved -appetite has been poor -no nausea, vomiting, or abd pain -states he takes Victoza at home; has not been taking Prandin as it has not been effective -Estimated Creatinine Clearance: 36.4 mL/min (A) (by C-G formula based on SCr of 2.57 mg/dL (H)). -spoke to RN Glucose Date/Time Value Ref Range Status 03/26/2023 08:05 AM 120 (H) 70 - 100 mg/dL Final 03/26/2023 05:00 AM 114 (H) 70 - 100 mg/dL Final 03/26/2023 02:08 AM 144 (H) 70 - 100 mg/dL Final 03/26/2023 01:37 AM <50 (L) 70 - 100 mg/dL Final Comment: Confirmation Drawn; 03/25/2023 08:31 PM 121 (H) 70 - 100 mg/dL Final 03/25/2023 06:31 PM 148 (H) 70 - 100 mg/dL Final Review of Systems ROS negative except for those mentioned in HPI. OBJECTIVE: Vitals: 03/26/23 0800 03/26/23 0826 03/26/23 0900 03/26/23 1000 BP: 115/52 BP Location: Patient Position: Pulse: 63 62 65 68 Resp: 18 Temp: 36.9 C (98.4 F) TempSrc: Oral SpO2: 98% 99% 99% 100% Weight: Height: PF: Physical Exam Vitals and nursing note reviewed. Constitutional: General: He is awake. He is not in acute distress. Appearance: He is obese. HENT: Head: Normocephalic. Cardiovascular: Rate and Rhythm: Normal rate and regular rhythm. Heart sounds: Normal heart sounds. Pulmonary: Effort: Pulmonary effort is normal. No respiratory distress. Breath sounds: Normal breath sounds. Abdominal: Palpations: Abdomen is soft. Tenderness: There is no abdominal tenderness. Skin: General: Skin is warm and dry. Comments: Intact chest incision Neurological: General: No focal deficit present. Mental Status: He is alert. Mental status is at baseline. Psychiatric: Mood and Affect: Mood normal. Behavior: Behavior is slowed. 24 hour intake/output: Intake/Output Summary (Last 24 hours) at 03/26/2023 1124 Last data filed at 03/25/2023 1145 Gross per 24 hour Intake -- Output 1500 ml Net -1500 ml Diet: Adult diet Regular; 5 carb choices (75 gm/meal) Medications (as per EMR): HomeMeds: Current Outpatient Medications Medication Instructions amLODIPine (Norvasc) 5 MG tablet Daily Apoaequorin (Prevagen) 10 MG capsule No dose, route, or frequency recorded. aspirin 324 mg, Oral, Daily atenolol (Tenormin) 50 MG tablet No dose, route, or frequency recorded. chlorhexidine (Peridex) 0.12 % solution 15 mL, Mouth/Throat, Use night before and morning of surgery enalapril (Vasotec) 20 MG tablet No dose, route, or frequency recorded. insulin glargine (Lantus SoloStar) 100 UNIT/ML pen SubCUTAneous, 70 units in the morning, 50 units in the evening liraglutide (Victoza) 18 MG/3ML injection No dose, route, or frequency recorded. mupirocin (Bactroban) 2 % ointment Apply liberal amount per nostril the night before surgery and then again the morning of surgery nitroglycerin (NITROSTAT) 0.4 mg, SubLINGual, Every 5 min PRN repaglinide (PRANDIN) 4 mg, 3 times daily before meals rosuvastatin (Crestor) 20 MG tablet Nightly Scheduled Meds:acetaminophen, 1,000 mg, Oral, q8h aspirin, 81 mg, Oral, Daily atenolol, 50 mg, Oral, Daily chlorhexidine, 15 mL, Mouth/Throat, BID [Held by provider] furosemide, 40 mg, IntraVENous, BID heparin, 5,000 Units, SubCUTAneous, BID insulin glargine, 36 Units, SubCUTAneous, q AM insulin lispro, 0-12 Units, SubCUTAneous, TID WC Insulin Lispro, 12 Units, SubCUTAneous, TID WC lactated ringers, 500 mL, IntraVENous, Once Lidocaine, 1 patch, Topical, Daily pantoprazole, 40 mg, Oral, qAM AC rosuvastatin, 20 mg, Oral, Nightly senna-docusate sodium, 2 tablet, Oral, Nightly sodium chloride 0.9%, 10 mL, IntraVENous, 2 times per day Continuous Infusions: PRN Meds:PRN medications: calcium gluconate, dextrose, dextrose, glucagon (rDNA), glucose, ipratropium-albuterol, magnesium sulfate OR magnesium sulfate, ondansetron ODT OR ondansetron, oxyCODONE OR oxyCODONE, potassium chloride OR potassium chloride OR potassium chloride, potass ium chloride CR, sodium chloride, sodium chloride 0.9% Diagnostic Workup: I reviewed pertinent Laboratory results, Radiographic results, and Other Clinical Notes at the timeof today's encounter. Labs: No components found for: LABA1C No components found for: EAG Lab Results Component Value Date NA 137 03/26/2023 K 3.9 03/26/2023 CL 101 03/26/2023 CO2 22 03/26/2023 BUN 59 (H) 03/26/2023 CREATININE 2.57 (H) 03/26/2023 GLUCOSE 119 (H) 03/26/2023 CALCIUM 8.5 03/26/2023 No results found for: CHLPL, CHOL No results found for: TRIG No results found for: HDL No results found for: LDLCALC No results found for: VLDL No results found for: CHOLHDLRATIO No results found for: [id number] No results found for: TSH, [id number], [id number], THYROIDAB Radiology reportsas per the Radiologist Radiology: ECG 12 lead Result Date: 03/21/2023 Sinus rhythm Right bundle branch block Probable inferior infarct, age indeterminate History/Other: Past Medical History: Past Medical History: Diagnosis Date Anemia Arthritis Coronary artery disease DM (diabetes mellitus) (HCC) History of transfusion HTN (hypertension) Hyperlipidemia RBBB Testicular cancer (HCC) Past Surgical History: Past Surgical History: Procedure Laterality Date ADENOIDECTOMY APPENDECTOMY COLONOSCOPY CORONARY STENT PLACEMENT 2004 LAP,INGUINAL HERNIA REPR,INITIAL (HISTORICAL) TONSILLECTOMY Allergy(ies): Allergies Allergen Reactions Amoxicillin Amoxicillin-Pot Clavulanate Atorvastatin Other Metformin Hcl Other Other pollen causes redness of eyes Pollen Extract Cough Clavulanic Acid Rash Metformin Diarrhea and Rash Family History: No family history on file. Social History: Social History Tobacco Use Smoking status: Never Smokeless tobacco: Never Vaping Use Vaping Use: Never used Substance Use Topics Alcohol use: Not Currently Drug use: Never Portions of the information within this encounter were entered using an electronic dictation system. Best attempts were made to edit/proofread the information prior to note completion. Despite the review of information, some errors may remain. If there are questions related to the information contained within the note please contact the signing physician directly. I spent 35 minutes with the pt which involved coordination of care, medical evaluation, review of records, and/or counseling of the pt regarding his/her condition/disease state/prognosis on the date of this note. * Nya Jacinto, CLINICAL PHARMACY COORDINATOR - TELECOM BILLING ANALYST - 03/26/2023 6:41 AM EDT Images from the original note were not included. Cardiothoracic Surgery/[facility] Progress Note PATIENT NAME: Robert Lipscomb DATE: 03/26/23 HPI: Mr. Robert Lipscomb is a 67 year old male patient with a PMHx that includes CAD s/p SUZETTE tp RCA (2004), RBBB, HTN, HLD, anemia and diabetes (A1c 7.9). He was referred to CT Surgery by Dr. Armendariz. Patienthad underwent coronary cath and was found to have severe multivessel CAD. He was seen in the OP setting by Dr. Childress. He consented and was scheduled for CABG on 03/21/23. Surgery/Procedure: 03/21/23: Dr. Childress- CABGx3 (PIERSON-LAD, SVG-OM, SVG-RPDA), LEVH Interval History: 03/26/23, POD# 05: Afebrile, NSR on tele, BP stable, on 2L O2. Hypoglycemia event overnight. Creatinine increased. Multiple loose BM's overnight. Patient lying in bed, awake and alert. Had a rough night. Per nursing, patient weak, not ambulating well using walker. Review of Systems Constitutional: Positive for fatigue. Negative for chills, diaphoresis and fever. Respiratory: Negative for cough, shortness of breath and wheezing. Cardiovascular: Positive for leg swelling. Negative for chest pain and palpitations. Gastrointestinal: Negative for abdominal distention and abdominal pain. Neurological: Negative for dizziness, syncope and light-headedness. Objective: Vitals: BP: (!) 118/103, MAP (mmHg): 110, BP Method: Automatic Heart Rate: 75 Resp: 18 Temp: 37.2 C (99 F), Temp Source: Axillary BMI (Calculated): 42.64 Chest xray pending. BMP: Recent Labs 03/24/2312103/25/2332103/26/23 0030 NA 137 138 140 K 4.2 3.7 3.3* CL 104 102 103 CO2 24 27 25 BUN 38* 41* 51* CREATININE 1.78* 1.75* 2.35* CALCIUM 8.1* 8.5 9.0 MG 2.0 1.9 2.7* CBC: Recent Labs 03/24/2312103/25/2332103/26/230 WBC 11.3* 9.3 18.0* HGB 10.1* 10.4* 11.1* HCT 30.8* 30.8* 33.6* PLT 139* 179 275 MCV 87.6 85.1 85.0 RDW 14.3 14.5 14.5 INR: No results for input(s): INR in the last 72 hours. Physical Exam Vitals reviewed. Constitutional: General: He is not in acute distress. Appearance: He is not ill-appearing or diaphoretic. Cardiovascular: Rate and Rhythm: Normal rate and regular rhythm. Pulses: Normal pulses. Heart sounds: No murmur heard. Pulmonary: Effort: Pulmonary effort is normal. Breath sounds: No wheezing, rhonchi or rales. Abdominal: General: There is no distension. Palpations: Abdomen is soft. Tenderness: There is no abdominal tenderness. Musculoskeletal: Right lower leg: Edema present. Left lower leg: Edema present. Skin: General: Skin is warm and dry. Capillary Refill: Capillary refill takes less than 2 seconds. Findings: Bruising present. Comments: MSI well approximated. No redness, warmth or drainage noted. Neurological: General: No focal deficit present. Mental Status: He is alert and oriented to person, place, and time. Psychiatric: Mood and Affect: Mood normal. Behavior: Behavior normal. Thought Content: Thought content normal. Judgment: Judgment normal. Assessment: CAD s/p CABGx3 HTN HLD DM (A1c 7.9) RBBB Post operative Pulm Management: Normal Post-operative Course Post-operative Atrial Fibrillation: []Yes [x] No Acute blood loss anemia/consumptive thrombocytopenia Plan: Patient Status: Telemetry Creatinine bumped up today. -1.78->1.75->2.35. DC lasix. Give 1L LR throughout day. Re-check BMP this AM, CBC this AM. WBC 18 this AM. Continue to monitor. -No fevers, chills or cough noted. Chest xray pending. Continue aspirin, statin and BB. DC bowel regimen. Encourage PO intake. Endocrinology following for blood glucose management. DVT prophy. Endocrinology following for blood glucose management. PT/OT: Home with home health PT (03/26/23) Pulmonary hygiene: IS and Acapella GI prophy: PO protonix DVT prophy:TEDs, SCDs, and Heparin SubQ Disposition: Monitor labs and activity, possibly home in the next couple days. Central Line: []Yes [x] No Arterial Line: []Yes [x] No Meyer: []Yes [x] No Restraints: []Yes [x] No Patient discussed and plan of day developed from multidisciplinary rounds between Cardiothoracic Surgery (Cardiothoracic Surgeon, MARIANO) and Critical Care Attending Cardiac Core Medications: ASA, Statin, and BB EF: 55% (03/21/23) Blood Conservation: None noted in post-operative period Blindstitch Hemmer: Dr. Armendariz Associated attestation - Kuldeep Alvaardo MD - 03/26/2023 12:43 PM EDT I have personally performed a face to face diagnostic evaluation on this patient today on 03/26/23.Labs, imaging studies, and electronic medical record notes on In Flow have been reviewed by me. This note documented and discussed by the []sergeant of officers []Fellow [] MARIANO reflects my history, exam and medical decision making. I have reviewed and agree with the care plan. Changes were made in the ordersas necessary. ROS documentation was reviewed and negative unless otherwise stated in the HPI. My history, exam, assessment and plan are as follows: Time spent for coordination of care: a subsequent visit: 35 minutes (Level II) Awake, in bed, multiple bowel mvmts overnight, hypoglycemia as well No fevers, no cough, no rhinorrhea Abd sore left lateral Severe CAD 03/21 s/p CABG x 3 Expected anemia post op HTN, HLD DEIDRE Cr 2.57, baseline Cr 1.37 CKD3 DM2 with hypoglycemia--Endo adjusting insulin dosing Obesity class III LR bolus, monitor creatinine and UOP, hold diuresis Check CXR * Rachael Greenwood, ORTHOTIC AND PROSTHETIC TECHNICIAN - 03/25/2023 3:23 PM EDT Physical Therapy Facility/Department: [facility] Physical Therapy Daily Treatment Note NAME: Shane Lipscomb : 1955 Date of Service: 03/25/2023 Discharge Recommendations: Home with Home health PT PT Equipment Recommendations Equipment Needed: No Other: own rollator Assessment Assessment: Pt progressing towards goals. Increase time to complete task. Issued P&C handout with review. Cues for sternal precautions. Rec home with assist upon discharge. Performance Deficits/Impairments: Decreased functional mobility , Decreased ADL status, Decreased strength, Decreased endurance, Decreased ROM Patient Diagnosis(es): The primary encounter diagnosis was CAD in [place] artery. Diagnoses of Aneurysm of ascending aorta without rupture (HCC) and Coronary atherosclerosis due to calcified coronary lesion (CODE) were also pertinent to this visit. has a past medical history of Anemia, Arthritis, Coronary artery disease, DM (diabetes mellitus) (HCC), History of transfusion, HTN (hypertension), Hyperlipidemia, RBBB, and Testicular cancer (HCC). has a past surgical history that includes lap,inguinal hernia repr,initial (historical); Colonoscopy; Appendectomy; Coronary stent placement (2004); Tonsillectomy; and Adenoidectomy. Restrictions Restrictions/Precautions Restrictions/Precautions: General Precautions, Fall Risk Required Braces or Orthoses?: No Position Activity Restriction Sternal Precautions: No Pushing, No Pulling, 10# Lifting Restrictions Other position/activity restrictions: PIV, tele Subjective General Chart Reviewed: Yes Patient Assessed for Rehabilitation Services: Yes Response To Previous Treatment: Not applicable Family / Caregiver Present: Yes (daughter) Diagnosis: CAD, s/p CABG x3 03/21 Follows Commands: Within Functional Limits Subjective Subjective: Pt reclined in chair, agreeable to PT. Pain Assessment Pain Assessment: No/denies pain Objective Bed mobility Comment: NT- pt in chair Transfers Sit to Stand: Minimal Assistance Stand to sit: Minimal Assistance Comment: x 2 reps; chair and toilet Ambulation Ambulation: Yes Ambulation 1 Surface 1: Level tile Device 1: (rollator) Assistance 1: Standby assistance Quality of Gait 1: slow michelle Quality of Gait Comment 1: decrease step length, flexed posture Distance (ft) 1: 300ft Comments 1: mild SOBOE, Ambulation 2 Surface 2: Level tile Device 2: (rollator) Assistance 2: Standby assistance Quality of Gait 2: slow michelle, uneven step length Quality of Gait Comment 2: see above Distance (ft) 2: 25 ft Comments 2: no LOB, flexed posture Balance Comments: standing with rollator, flexed posture, CGA/SBA for balance; dynamic standing with functional reaching, no LOB, SBA. Exercises Upper Extremity: P&C ex #1-9 all x 10 reps each Comments: issued P&C handout with review. Plan Times per Week: 5-7x Plan Weeks: 2 wks Current Treatment Recommendations: Strengthening, Balance Training, Gait Training, Stair training, Functional Mobility Training, Transfer Training, ADL/Self-care Training, IADL Training, Endurance Training, Equipment Evaluation, Education, & procurement, Patient/Caregiver Education & Training, Safety Education & Training, Home Exercise Program Safety Safety Devices Safety Devices in Place: Yes Type of Devices: All fall risk precautions in place, Call light within reach, Gait belt, Nurse notified, No alarms engaged upon entry into room, Left in chair AM-PAC Score AM-PAC Inpatient Mobility Raw Score (No Stairs) : 15 Goals Encounter Problems Encounter Problems (Active) Cardiac Patient will perform bed mobility with independence in order to improve independence and prepare for out of bed mobility. (Not Addressed) Start: 03/22/23 Expected End: 04/05/23 Patient will complete sit to stand transfer with modified independence to LRD in order to improve safety and prepare for out of bed mobility. (Progressing) Start: 03/22/23 Expected End: 04/05/23 Patient will ambulate 600 feet or ambulate 5 minutes with modified independence with RPE of 14 or lower. (Progressing) Start: 03/22/23 Expected End: 04/05/23 Patient will ascend and descend 3 # stairs with modified independence rail for balance only. (Not Addressed) Start: 03/22/23 Expected End: 04/05/23 Patient will be independent with P&C exercises. (Progressing) Start: 03/22/23 Expected End: 04/05/23 Patient will be independent with managing secretions and home walking program. (Progressing) Start: 03/22/23 Expected End: 04/05/23 Education Education Given To: Family, Patient Education Provided: Goals, General Safety, Gait Training, Plan of Care, Discharge recommendations, Home Exercise Program, Transfer Training Education Provided Comments: P&C therex, IS use, mobility needs, sternal precautions Education Method: Verbal Barriers to Learning: None Education Outcome: Verbalized understanding, Continued education needed Therapy Time Individual Co-treatment Time In 1426 Time Out 1502 Minutes 36 Timed Code Treatment Minutes: 36 Minutes (tp; gait) Rachael Greenwood PTA * Willem Mayo MD - 03/25/2023 12:34 PM EDT Department of Internal Medicine Division of Endocrinology, Diabetes, & Metabolism Endocrinology Note Patient Name: Robert iLpscomb : 1955 AGE: 67 y.o. 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 PLAN: BG above target but patient did not receive all his insulin doses yesterday because he had decreased appetite He feels better today Continue Lantus 66 units every morning Continue Humalog 24 units before meals with medium dose correction before meals In future pt will benefit from SGLT-2 Inhibitor and CGM. Not clear if he is taking victoza. In future will benefit from ozempic ICU goal <180 GMF goal <150 POCT BG q1 Hypoglycemia per protocol Carb controlled diet ANTICIPATED ENDOCRINE HOME GOING RECOMMENDATIONS: Optimized for Discharge from Endocrine standpoint: No Home Going Endocrine Rx Recommendations-- Most likely basal bolus insulin in pens with insulin pen needels. No prandin Outpt Follow Up-- pcp SUBJECTIVE/HPI: CHIEF COMPLAINT: s/p CABG Denies nausea, vomiting, or abd pain Had poor appetite yesterday for dinner so he received Humalog 8 units only instead of 24 units Feels appetite is better today Tolerating diet BG still above target Cr 1.75 GFR 41.6 Type of DM: 2 Onset of DM: over 10 years per patient Home DM Medication Regimen: per chart lantus pens 70 am and 50 pm, victoza 1.8 mg daily ? , prandin4 mg tid meals po DM control (last A1c/glucose data): Lab Results Component Value Date HGBA1C 7.9 (H) 03/11/2023 Glucose Date/Time Value Ref Range Status 03/25/2023 08:23 AM 250 (H) 70 - 100 mg/dL Final 03/24/2023 05:49 PM 171 (H) 70 - 100 mg/dL Final 03/24/2023 11:39 AM 250 (H) 70 - 100 mg/dL Final 03/24/2023 08:51 AM 188 (H) 70 - 100 mg/dL Final 03/23/2023 05:46 PM 239 (H) 70 - 100 mg/dL Final 03/23/2023 11:52 AM 229 (H) 70 - 100 mg/dL Final Review of Systems ROS negative except for those mentioned in HPI. OBJECTIVE: Vitals: 03/25/23 0500 03/25/23 0600 03/25/23 0700 03/25/23 0800 BP: (!) 141/44 BP Location: Right arm Patient Position: Sitting Pulse: 86 81 84 77 Resp: 18 Temp: 36.7 C (98 F) TempSrc: Temporal SpO2: 98% Weight: Height: PF: Physical Exam Vitals and nursing note reviewed. Constitutional: General: He is awake. He is not in acute distress. Appearance: He is ill-appearing. He is not diaphoretic. HENT: Head: Normocephalic. Mouth/Throat: Mouth: Mucous membranes are moist. Cardiovascular: Rate and Rhythm: Normal rate. Pulmonary: Effort: Pulmonary effort is normal. Abdominal: Palpations: Abdomen is soft. Tenderness: There is no abdominal tenderness. Skin: General: Skin is warm and dry. Comments: Intact incision Neurological: Mental Status: He is alert and oriented to person, place, and time. Mental status is at baseline. Psychiatric: Behavior: Behavior is slowed. 24 hour intake/output: Intake/Output Summary (Last 24 hours) at 03/25/2023 1234 Last data filed at 03/25/2023 1145 Gross per 24 hour Intake 500 ml Output 4750 ml Net -4250 ml Diet: Adult diet Regular; 5 carb choices (75 gm/meal) Medications (as per EMR): HomeMeds: Current Outpatient Medications Medication Instructions amLODIPine (Norvasc) 5 MG tablet Daily Apoaequorin (Prevagen) 10 MG capsule No dose, route, or frequency recorded. aspirin 324 mg, Oral, Daily atenolol (Tenormin) 50 MG tablet No dose, route, or frequency recorded. chlorhexidine (Peridex) 0.12 % solution 15 mL, Mouth/Throat, Use night before and morning of surgery enalapril (Vasotec) 20 MG tablet No dose, route, or frequency recorded. insulin glargine (Lantus SoloStar) 100 UNIT/ML pen SubCUTAneous, 70 units in the morning, 50 units in the evening liraglutide (Victoza) 18 MG/3ML injection No dose, route, or frequency recorded. mupirocin (Bactroban) 2 % ointment Apply liberal amount per nostril the night before surgery and then again the morning of surgery nitroglycerin (NITROSTAT) 0.4 mg, SubLINGual, Every 5 min PRN repaglinide (PRANDIN) 4 mg, 3 times daily before meals rosuvastatin (Crestor) 20 MG tablet Nightly Scheduled Meds:acetaminophen, 1,000 mg, Oral, q8h aspirin, 81 mg, Oral, Daily atenolol, 50 mg, Oral, Daily chlorhexidine, 15 mL, Mouth/Throat, BID furosemide, 40 mg, IntraVENous, BID heparin, 5,000 Units, SubCUTAneous, BID insulin glargine, 66 Units, SubCUTAneous, q AM insulin lispro, 0-12 Units, SubCUTAneous, TID WC Insulin Lispro, 24 Units, SubCUTAneous, TID WC Lidocaine, 1 patch, Topical, Daily magnesium hydroxide, 30 mL, Oral, Daily pantoprazole, 40 mg, Oral, qAM AC polyethylene glycol (PEG) 3350, 17 g, Oral, Daily rosuvastatin, 20 mg, Oral, Nightly senna-docusate sodium, 2 tablet, Oral, Nightly sodium chloride 0.9%, 10 mL, IntraVENous, 2 times per day Continuous Infusions: PRN Meds:PRN medications: calcium gluconate, dextrose, dextrose, glucagon (rDNA), glucose, ipratropium-albuterol, magnesium sulfate OR magnesium sulfate, ondansetron ODT OR ondansetron, oxyCODONE OR oxyCODONE, potassium chloride OR potassium chloride OR potassium chloride, potass ium chloride CR, sodium chloride, sodium chloride 0.9% Diagnostic Workup: I reviewed pertinent Laboratory results, Radiographic results, and Other Clinical Notes at the timeof today's encounter. Labs: No components found for: LABA1C No components found for: EAG Lab Results Component Value Date NA 138 03/25/2023 K 3.7 03/25/2023 CL 102 03/25/2023 CO2 27 03/25/2023 BUN 41 (H) 03/25/2023 CREATININE 1.75 (H) 03/25/2023 GLUCOSE 161 (H) 03/25/2023 CALCIUM 8.5 03/25/2023 No results found for: CHLPL, CHOL No results found for: TRIG No results found for: HDL No results found for: LDLCALC No results found for: VLDL No results found for: CHOLHDLRATIO No results found for: [id number] No results found for: TSH, Q9BHENY, W7EMTLN, THYROIDAB Radiology reportsas per the Radiologist Radiology: ECG 12 lead Result Date: 03/21/2023 Sinus rhythm Right bundle branch block Probable inferior infarct, age indeterminate History/Other: Past Medical History: Past Medical History: Diagnosis Date Anemia Arthritis Coronary artery disease DM (diabetes mellitus) (HCC) History of transfusion HTN (hypertension) Hyperlipidemia RBBB Testicular cancer (HCC) Past Surgical History: Past Surgical History: Procedure Laterality Date ADENOIDECTOMY APPENDECTOMY COLONOSCOPY CORONARY STENT PLACEMENT 2004 LAP,INGUINAL HERNIA REPR,INITIAL (HISTORICAL) TONSILLECTOMY Allergy(ies): Allergies Allergen Reactions Amoxicillin Amoxicillin-Pot Clavulanate Atorvastatin Other Metformin Hcl Other Other pollen causes redness of eyes Pollen Extract Cough Clavulanic Acid Rash Metformin Diarrhea and Rash Family History: No family history on file. Social History: Social History Tobacco Use Smoking status: Never Smokeless tobacco: Never Vaping Use Vaping Use: Never used Substance Use Topics Alcohol use: Not Currently Drug use: Never Portions of the information within this encounter were entered using an electronic dictation system. Best attempts were made to edit/proofread the information prior to note completion. Despite the review of information, some errors may remain. If there are questions related to the information contained within the note please contact the signing physician directly. I spent 35 minutes with the pt which involved coordination of care, medical evaluation, review of records, and/or counseling of the pt regarding his/her condition/disease state/prognosis on the date of this note. * Nya Jacinto, MARCK - TELECOM BILLING ANALYST - 03/25/2023 6:08 AM EDT Images from the original note were not included. Cardiothoracic Surgery/[facility] Progress Note PATIENT NAME: Robert Lipscomb DATE: 03/25/23 HPI: Mr. Robert Lipscomb is a 67 year old male patient with a PMHx that includes CAD s/p SUZETTE tp RCA (2004), RBBB, HTN, HLD, anemia and diabetes (A1c 7.9). He was referred to CT Surgery by Dr. Armendariz. Patienthad underwent coronary cath and was found to have severe multivessel CAD. He was seen in the OP setting by Dr. Childress. He consented and was scheduled for CABG on 03/21/23. Surgery/Procedure: 03/21/23: Dr. Childress- CABGx3 (PIERSON-LAD, SVG-OM, SVG-RPDA), [facility] Interval History: 03/25/23, POD# 04: Afebrile, NSR on tele, BP stable but slightly elevated, on RA. Patient sitting up in chair, no major complaints. Pain tolerable. Review of Systems Constitutional: Positive for fatigue. Negative for chills, diaphoresis and fever. Respiratory: Negative for cough, shortness of breath and wheezing. Cardiovascular: Positive for leg swelling. Negative for chest pain and palpitations. Gastrointestinal: Negative for abdominal distention and abdominal pain. Neurological: Negative for dizziness, syncope and light-headedness. Objective: Vitals: BP: (!) 150/60, MAP (mmHg): 82, BP Method: Automatic Heart Rate: 81 Resp: 20 Temp: 36.4 C (97.5 F), Temp Source: Temporal BMI (Calculated): 43.15 BMP: Recent Labs 03/23/23 0004 03/24/23 0122 03/25/23321 NA 137 137 138 K 4.2 4.2 3.7 CL 109* 104 102 CO2 19* 24 27 BUN 25* 38* 41* CREATININE 1.40* 1.78* 1.75* CALCIUM 7.9* 8.1* 8.5 MG 2.2 2.0 1.9 CBC: Recent Labs 03/23/23 0004 03/24/23 0122 03/25/23321 WBC 12.6* 11.3* 9.3 HGB 9.8* 10.1* 10.4* HCT 30.3* 30.8* 30.8* PLT 125* 139* 179 MCV 87.1 87.6 85.1 RDW 14.4 14.3 14.5 INR: No results for input(s): INR in the last 72 hours. Physical Exam Vitals reviewed. Constitutional: General: He is not in acute distress. Appearance: He is not ill-appearing or diaphoretic. Neck: Comments: Central line. Cardiovascular: Rate and Rhythm: Normal rate and regular rhythm. Pulses: Normal pulses. Heart sounds: No murmur heard. Pulmonary: Effort: Pulmonary effort is normal. Breath sounds: No wheezing, rhonchi or rales. Abdominal: General: There is no distension. Palpations: Abdomen is soft. Tenderness: There is no abdominal tenderness. Genitourinary: Comments: Meyer. Musculoskeletal: Right lower leg: Edema present. Left lower leg: Edema present. Skin: General: Skin is warm and dry. Capillary Refill: Capillary refill takes less than 2 seconds. Findings: Bruising present. Comments: MSI well approximated. No redness, warmth or drainage noted. Neurological: General: No focal deficit present. Mental Status: He is alert and oriented to person, place, and time. Psychiatric: Mood and Affect: Mood normal. Behavior: Behavior normal. Thought Content: Thought content normal. Judgment: Judgment normal. Assessment: CAD s/p CABGx3 HTN HLD DM (A1c 7.9) RBBB Post operative Pulm Management: Normal Post-operative Course Post-operative Atrial Fibrillation: []Yes [x] No Acute blood loss anemia/consumptive thrombocytopenia Plan: Patient Status: Telemetry Continue aspirin, statin and BB. Increase atenolol to home dose 50mg daily. -Takes enalapril at home as well. Will hold for now d/t increased creat. Lasix 40mg IV BID. RACHELLE meyer, RACHELLE [place]. Add MOM to bowel regimen. DVT prophy. Endocrinology following for blood glucose management. PT/OT: Home with home health PT (03/22/23) Pulmonary hygiene: IS and Acapella GI prophy: PO protonix DVT prophy:TEDs, SCDs, and Heparin SubQ Disposition: Plan for home, potentially Saturday. Central Line: [x]Yes [] No Arterial Line: []Yes [x] No Meyer: [x]Yes [] No Restraints: []Yes [x] No Patient discussed and plan of day developed from multidisciplinary rounds between Cardiothoracic Surgery (Cardiothoracic Surgeon, MARIANO) and Critical Care Attending Cardiac Core Medications: ASA, Statin, and BB EF: 55% (03/21/23) Blood Conservation: None noted in post-operative period Blindstitch Hemmer: Dr. Armendariz Associated attestation - Kuldeep Alvarado MD - 03/25/2023 3:37 PM EDT I have personally performed a face to face diagnostic evaluation on this patient today on 03/25/23.Labs, imaging studies, and electronic medical record notes on In Flow have been reviewed by me. This note documented and discussed by the []sergeant of officers []Fellow [x] MARIANO reflects my history, exam and medical decision making. I have reviewed and agree with the care plan. Changes were made in the orders as necessary. ROS documentation was reviewed and negative unless otherwise stated in the HPI. My history, exam, assessment and plan are as follows: Time spent for coordination of care: a subsequent visit: 25 minutes (Level I) Awake, alert, in chair, resp unlabored Severe CAD 03/21 s/p CABG x 3 Expected anemia post op HTN, HLD Cr 1.75, baseline Cr 1.37 CKD3 DM2 with hyperglycemia Obesity class III Removing central line and meyer today On bid lasix * Sharon Dumont RCP - 03/24/2023 11:42 PM EDT [facility] Respiratory Care Department Progress Note Comment or reasoning for refusal: Patient was seen in attempts to fulfill CPAP/BiPAP/AutoPAP order. Patient refused PAP therapy/studyat this time. Patient was educated on medical need and reasoning for physician order to ensure patient was making an informed medical decision. All of the patient's questions were answered at this time and patient was informed that if the patient changes their mind regarding wearing PAP to hit their call light or inform their nurse to contact Respiratory. A second, consecutive night of refusing PAP therapy/study results in order completion in the EMR. If future CPAP/BiPAP/AutoPAP therapy or study is indicated please place another order in the EMR and the assigned Respiratory Therapist will reattempt to fulfill orders. Reason for refusal: Thank you for involving Respiratory in the care of this patient, * Jonathan De Leon APRN - EDDY - 03/24/2023 12:07 PM EDT Images from the original note were not included. PATIENT NAME: Robert Lipscomb DATE: 03/24/23 Mr. Robert Lipscomb is a 67 year old male patient with a PMHx that includes CAD s/p SUZETTE tp RCA (2004), RBBB, HTN, HLD, anemia and diabetes (A1c 7.9). He was referred to CT Surgery by Dr. Armendariz. Patienthad underwent coronary cath and was found to have severe multivessel CAD. He was seen in the OP setting by Dr. Childress. He consented and was scheduled for CABG on 03/21/23. Surgery/Procedure: 03/21/23: Dr. Childress- CABGx3 (PIERSON-LAD, SVG-OM, SVG-RPDA), [facility] Interval History: 03/24/23, POD#3 - Pt VSS overnight, Minimal CT output, CXR clearing, creat is 1.7 baseline 1.5 - other labs stable, Review of Systems Constitutional: Negative for diaphoresis, fatigue and fever. Respiratory: Negative for cough, shortness of breath and wheezing. Cardiovascular: Negative for chest pain, palpitations and leg swelling. Gastrointestinal: Negative for abdominal distention, constipation and diarrhea. Skin: Negative for color change, pallor and rash. Objective: Vitals: BP: 123/55, MAP (mmHg): 75, BP Method: Automatic Heart Rate: 80 Resp: 18 Temp: 36.6 C (97.9 F), Temp Source: Temporal BMI (Calculated): 44.18 CXR: BMP: Recent Labs 03/22/2313103/23/23 0004 03/24/23 012 NA 140 137 137 K 4.7 4.2 4.2 CL 111* 109* 104 CO2 19* 19* 24 BUN 20 25* 38* CREATININE 1.32* 1.40* 1.78* CALCIUM 8.1* 7.9* 8.1* MG 2.2 2.2 2.0 CBC: Recent Labs 03/22/2313103/23/23 0004 03/24/23 0122 WBC 12.7* 12.6* 11.3* HGB 10.4* 9.8* 10.1* HCT 31.5* 30.3* 30.8* PLT 163 125* 139* MCV 85.9 87.1 87.6 RDW 14.1 14.4 14.3 INR: Recent Labs 03/22/23 0132 INR 1.2* Physical Exam Cardiovascular: Rate and Rhythm: Normal rate and regular rhythm. Heart sounds: Normal heart sounds. No murmur heard. No friction rub. Pulmonary: Effort: Pulmonary effort is normal. Skin: General: Skin is warm and dry. Capillary Refill: Capillary refill takes less than 2 seconds. Findings: Bruising and ecchymosis present. Neurological: Mental Status: He is alert. Psychiatric: Behavior: Behavior is cooperative. Assessment: CAD s/p CABGx3 HTN HLD DM (A1c 7.9) RBBB Post operative Pulm Management: Normal Post-operative Course Post-operative Atrial Fibrillation: []Yes [x] No Acute blood loss anemia/consumptive thrombocytopenia Plan: Patient Status: ICU CXR wet creat elevated likely cardio renal - will need diuresis continue 40 lasix IV BID - continuefoley cath GDMT for CAD with EF preserved aspirin and statin, BB DVT prophy. Bowel regimen. Daily labs and chest xray. PRN electrolyte replacement protocols. Chest tubes assessed: no air leak, subcutaneous air noted. Chest tubes removed without difficulty and dressing applied. Patient tolerated well. Patient and nurse educated on possible complications toobserve for. Will continue to monitor. PT/OT: Home With Home health Pulmonary hygiene: IS and Acapella GI prophy: IV protonix DVT prophy: TEDs, SCDs, and Heparin SubQ Disposition: Home with home health this week Central Line: [x]Yes [] No Arterial Line: []Yes [x] No Meyer: []Yes [x] No Restraints: []Yes [x] No Patient discussed and plan of day developed from multidisciplinary rounds between Cardiothoracic Surgery (Cardiothoracic Surgeon, MARIANO) and Critical Care Attending Cardiac Core Medications: ASA, Statin, and No BB due to hypotension EF: 55% (03/21/23) Blood Conservation: None noted in post-operative period Blindstitch Hemmer: Dr. Armendariz * Willem Mayo MD - 03/24/2023 9:03 AM EDT Department of Internal Medicine Division of Endocrinology, Diabetes, & Metabolism Endocrinology Note Patient Name: Robert Lipscomb : 1955 AGE: 67 y.o. 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 PLAN: BG above target Increase Lantus to 66 units every morning Increase Humalog to 24 units before meals with medium dose correction before meals In future pt will benefit from SGLT-2 Inhibitor and CGM. Not clear if he is taking victoza. In future will benefit from ozempic Discussed with nurse ICU goal <180 GMF goal <150 POCT BG q1 Hypoglycemia per protocol Carb controlled diet ANTICIPATED ENDOCRINE HOME GOING RECOMMENDATIONS: Optimized for Discharge from Endocrine standpoint: No Home Going Endocrine Rx Recommendations-- Most likely basal bolus insulin in pens with insulin pen needels. No Outpt Follow Up-- pcp SUBJECTIVE/HPI: CHIEF COMPLAINT: s/p CABG Denies nausea, vomiting, or abd pain Tolerating diet BG still above target Cr 1.78 GFR 40.8 Type of DM: 2 Onset of DM: over 10 years per patient Home DM Medication Regimen: per chart lantus pens 70 am and 50 pm, victoza 1.8 mg daily ? , prandin4 mg tid meals po DM control (last A1c/glucose data): Lab Results Component Value Date HGBA1C 7.9 (H) 03/11/2023 Glucose Date/Time Value Ref Range Status 03/24/2023 08:51 AM 188 (H) 70 - 100 mg/dL Final 03/23/2023 05:46 PM 239 (H) 70 - 100 mg/dL Final 03/23/2023 11:52 AM 229 (H) 70 - 100 mg/dL Final 03/23/2023 10:03 AM 178 (H) 70 - 100 mg/dL Final 03/23/2023 07:56 AM 103 (H) 70 - 100 mg/dL Final 03/23/2023 05:29 AM 139 (H) 70 - 100 mg/dL Final Review of Systems ROS negative except for those mentioned in HPI. OBJECTIVE: Vitals: 03/24/23 0400 03/24/23 0500 03/24/23 0600 03/24/23 0700 BP: (!) 148/57 139/68 BP Location: Right arm Right arm Patient Position: Lying Lying Pulse: 81 79 83 80 Resp: 18 18 Temp: 36.9 C (98.4 F) 36.6 C (97.9 F) TempSrc: Temporal Temporal SpO2: 98% 99% 99% 96% Weight: Height: PF: Physical Exam Vitals and nursing note reviewed. Constitutional: General: He is awake. He is not in acute distress. Appearance: He is ill-appearing. He is not diaphoretic. HENT: Head: Normocephalic. Mouth/Throat: Mouth: Mucous membranes are moist. Cardiovascular: Rate and Rhythm: Normal rate. Pulmonary: Effort: Pulmonary effort is normal. Abdominal: Palpations: Abdomen is soft. Tenderness: There is no abdominal tenderness. Skin: General: Skin is warm and dry. Comments: Intact incision Neurological: Mental Status: He is alert and oriented to person, place, and time. Mental status is at baseline. Psychiatric: Behavior: Behavior is slowed. 24 hour intake/output: Intake/Output Summary (Last 24 hours) at 03/24/2023 0904 Last data filed at 03/24/2023 0700 Gross per 24 hour Intake -- Output 2415 ml Net -2415 ml Diet: Adult diet Regular; 5 carb choices (75 gm/meal) Medications (as per EMR): HomeMeds: Current Outpatient Medications Medication Instructions amLODIPine (Norvasc) 5 MG tablet Daily Apoaequorin (Prevagen) 10 MG capsule No dose, route, or frequency recorded. aspirin 324 mg, Oral, Daily atenolol (Tenormin) 50 MG tablet No dose, route, or frequency recorded. chlorhexidine (Peridex) 0.12 % solution 15 mL, Mouth/Throat, Use night before and morning of surgery enalapril (Vasotec) 20 MG tablet No dose, route, or frequency recorded. insulin glargine (Lantus SoloStar) 100 UNIT/ML pen SubCUTAneous, 70 units in the morning, 50 units in the evening liraglutide (Victoza) 18 MG/3ML injection No dose, route, or frequency recorded. mupirocin (Bactroban) 2 % ointment Apply liberal amount per nostril the night before surgery and then again the morning of surgery nitroglycerin (NITROSTAT) 0.4 mg, SubLINGual, Every 5 min PRN repaglinide (PRANDIN) 4 mg, 3 times daily before meals rosuvastatin (Crestor) 20 MG tablet Nightly Scheduled Meds:acetaminophen, 1,000 mg, Oral, q8h aspirin, 81 mg, Oral, Daily atenolol, 25 mg, Oral, Daily chlorhexidine, 15 mL, Mouth/Throat, BID furosemide, 40 mg, IntraVENous, BID heparin, 5,000 Units, SubCUTAneous, BID insulin glargine, 66 Units, SubCUTAneous, q AM insulin lispro, 0-12 Units, SubCUTAneous, TID WC Insulin Lispro, 24 Units, SubCUTAneous, TID WC Lidocaine, 1 patch, Topical, Daily mupirocin, , Nasal, BID pantoprazole, 40 mg, IntraVENous, Daily polyethylene glycol (PEG) 3350, 17 g, Oral, Daily rosuvastatin, 20 mg, Oral, Nightly senna-docusate sodium, 2 tablet, Oral, Nightly sodium chloride 0.9%, 10 mL, IntraVENous, 2 times per day Continuous Infusions:insulin regular, 1-50 Units/hr, Last Rate: 2 Units/hr (03/23/23 1004) sodium chloride, 20 mL/hr, Last Rate: 20 mL/hr (03/21/23 1444) PRN Meds:PRN medications: calcium gluconate, dextrose, dextrose, glucagon (rDNA), glucose, ipratropium-albuterol, magnesium hydroxide, magnesium sulfate OR magnesium sulfate, ondansetron ODT OR ondansetron, oxyCODONE OR oxyCODONE, potassium chloride OR potassium chloride OR potassium chloride, potassium chloride CR, sodium chloride, sodium chloride 0.9% Diagnostic Workup: I reviewed pertinent Laboratory results, Radiographic results, and Other Clinical Notes at the timeof today's encounter. Labs: No components found for: LABA1C No components found for: EAG Lab Results Component Value Date NA 137 03/24/2023 K 4.2 03/24/2023 CL 104 03/24/2023 CO2 24 03/24/2023 BUN 38 (H) 03/24/2023 CREATININE 1.78 (H) 03/24/2023 GLUCOSE 188 (H) 03/24/2023 CALCIUM 8.1 (L) 03/24/2023 No results found for: CHLPL, CHOL No results found for: TRIG No results found for: HDL No results found for: LDLCALC No results found for: VLDL No results found for: CHOLHDLRATIO No results found for: [id number] No results found for: TSH, T7QNHDN, P6CQBHV, THYROIDAB Radiology reportsas per the Radiologist Radiology: ECG 12 lead Result Date: 03/21/2023 Sinus rhythm Right bundle branch block Probable inferior infarct, age indeterminate History/Other: Past Medical History: Past Medical History: Diagnosis Date Anemia Arthritis Coronary artery disease DM (diabetes mellitus) (HCC) History of transfusion HTN (hypertension) Hyperlipidemia RBBB Testicular cancer (HCC) Past Surgical History: Past Surgical History: Procedure Laterality Date ADENOIDECTOMY APPENDECTOMY COLONOSCOPY CORONARY STENT PLACEMENT 2004 LAP,INGUINAL HERNIA REPR,INITIAL (HISTORICAL) TONSILLECTOMY Allergy(ies): Allergies Allergen Reactions Amoxicillin Amoxicillin-Pot Clavulanate Atorvastatin Other Metformin Hcl Other Other pollen causes redness of eyes Pollen Extract Cough Clavulanic Acid Rash Metformin Diarrhea and Rash Family History: No family history on file. Social History: Social History Tobacco Use Smoking status: Never Smokeless tobacco: Never Vaping Use Vaping Use: Never used Substance Use Topics Alcohol use: Not Currently Drug use: Never Portions of the information within this encounter were entered using an electronic dictation system. Best attempts were made to edit/proofread the information prior to note completion. Despite the review of information, some errors may remain. If there are questions related to the information contained within the note please contact the signing physician directly. I spent 35 minutes with the pt which involved coordination of care, medical evaluation, review of records, and/or counseling of the pt regarding his/her condition/disease state/prognosis on the date of this note. * Sharon Dumont RCP - 03/23/2023 10:29 PM EDT [facility] Respiratory Care Department Progress Note Comment or reasoning for refusal: Patient was seen in attempts to fulfill CPAP/BiPAP/AutoPAP order. Patient refused PAP therapy/studyat this time. Patient was educated on medical need and reasoning for physician order to ensure patient was making an informed medical decision. All of the patient's questions were answered at this time and patient was informed that if the patient changes their mind regarding wearing PAP to hit their call light or inform their nurse to contact Respiratory. A second, consecutive night of refusing PAP therapy/study results in order completion in the EMR. If future CPAP/BiPAP/AutoPAP therapy or study is indicated please place another order in the EMR and the assigned Respiratory Therapist will reattempt to fulfill orders. Reason for refusal: Thank you for involving Respiratory in the care of this patient, * Willem Mayo MD - 03/23/2023 11:34 AM EDT Department of Internal Medicine Division of Endocrinology, Diabetes, & Metabolism Endocrinology Note Patient Name: Robert Lipscomb : 1955 AGE: 67 y.o. Room[facility]Bed: [facility] A Admission Date: 03/21/2023 Visit Date: 03/23/2023 Reason for Endocrine Consult: post op heart Provider/Team Requesting Consult: cts PCP: TEMO RODRIGUEZ Outpt Gluing Crew Leader: No ASSESSMENT: Type 2 DM with with hyperglycemia with usp insulin use S/p CABG Obesity Body mass index is 44.3 kg/m . PLAN: Lantus 60 units now then discontinue insulin drip after 1 hour Lantus 60 units every morning starting tomorrow Humalog 20 units before meals with medium dose correction before meals In future pt will benefit from SGLT-2 Inhibitor and CGM. Discussed with nurse ICU goal <180 GMF goal <150 POCT BG q1 Hypoglycemia per protocol Carb controlled diet ANTICIPATED ENDOCRINE HOME GOING RECOMMENDATIONS: Optimized for Discharge from Endocrine standpoint: No Home Going Endocrine Rx Recommendations-- Most likely basal bolus insulin Outpt Follow Up-- pcp SUBJECTIVE/HPI: CHIEF COMPLAINT: No chief complaint on file. Cabgx3 Will clarify DM2 history and medications once extubated Current insulin drip rate 2 units/h Was on 6 units/h before Type of DM: 2 Onset of DM: over 10 years per patient Home DM Medication Regimen: per chart lantus pens 70 am and 50 pm, victoza 1.8 mg daily ? , prandin4 mg tid meals po DM control (last A1c/glucose data): Lab Results Component Value Date HGBA1C 7.9 (H) 03/11/2023 Glucose Date/Time Value Ref Range Status 03/23/2023 05:29 AM 139 (H) 70 - 100 mg/dL Final 03/23/2023 03:56 AM 153 (H) 70 - 100 mg/dL Final 03/23/2023 02:04 AM 120 (H) 70 - 100 mg/dL Final 03/23/2023 01:01 AM 118 (H) 70 - 100 mg/dL Final 03/22/2023 10:57 PM 185 (H) 70 - 100 mg/dL Final 03/22/2023 09:57 PM 204 (H) 70 - 100 mg/dL Final Review of Systems ROS negative except for those mentioned in HPI. OBJECTIVE: Vitals: 03/23/23 0400 03/23/23 0500 03/23/23 0600 03/23/23 0700 BP: (!) 155/48 (!) 155/53 138/55 BP Location: Patient Position: Lying Pulse: 97 96 86 Resp: 20 Temp: 37.3 C (99.1 F) TempSrc: Temporal SpO2: 92% 92% 95% Weight: 299 lb 4.8 oz (136 kg) Height: PF: Physical Exam Vitals and nursing note reviewed. Constitutional: General: He is awake. He is not in acute distress. Appearance: He is ill-appearing. He is not diaphoretic. HENT: Head: Normocephalic. Mouth/Throat: Mouth: Mucous membranes are moist. Cardiovascular: Rate and Rhythm: Normal rate. Pulmonary: Effort: Pulmonary effort is normal. Abdominal: Palpations: Abdomen is soft. Tenderness: There is no abdominal tenderness. Skin: General: Skin is warm and dry. Comments: Intact incision Neurological: Mental Status: He is alert and oriented to person, place, and time. Mental status is at baseline. Psychiatric: Behavior: Behavior is slowed. 24 hour intake/output: Intake/Output Summary (Last 24 hours) at 03/23/2023 1134 Last data filed at 03/23/2023 0600 Gross per 24 hour Intake 1200 ml Output 1165 ml Net 35 ml Diet: Adult diet Regular; 5 carb choices (75 gm/meal) Medications (as per EMR): HomeMeds: Current Outpatient Medications Medication Instructions amLODIPine (Norvasc) 5 MG tablet Daily Apoaequorin (Prevagen) 10 MG capsule No dose, route, or frequency recorded. aspirin 324 mg, Oral, Daily atenolol (Tenormin) 50 MG tablet No dose, route, or frequency recorded. chlorhexidine (Peridex) 0.12 % solution 15 mL, Mouth/Throat, Use night before and morning of surgery enalapril (Vasotec) 20 MG tablet No dose, route, or frequency recorded. insulin glargine (Lantus SoloStar) 100 UNIT/ML pen SubCUTAneous, 70 units in the morning, 50 units in the evening liraglutide (Victoza) 18 MG/3ML injection No dose, route, or frequency recorded. mupirocin (Bactroban) 2 % ointment Apply liberal amount per nostril the night before surgery and then again the morning of surgery nitroglycerin (NITROSTAT) 0.4 mg, SubLINGual, Every 5 min PRN repaglinide (PRANDIN) 4 mg, 3 times daily before meals rosuvastatin (Crestor) 20 MG tablet Nightly Scheduled Meds:acetaminophen, 1,000 mg, Oral, q8h aspirin, 81 mg, Oral, Daily atenolol, 25 mg, Oral, Daily chlorhexidine, 15 mL, Mouth/Throat, BID furosemide, 40 mg, IntraVENous, BID heparin, 5,000 Units, SubCUTAneous, BID insulin glargine, 60 Units, SubCUTAneous, Once [START ON 03/24/2023] insulin glargine, 60 Units, SubCUTAneous, q AM insulin lispro, 0-12 Units, SubCUTAneous, TID WC Insulin Lispro, 20 Units, SubCUTAneous, TID WC Lidocaine, 1 patch, Topical, Daily mupirocin, , Nasal, BID pantoprazole, 40 mg, IntraVENous, Daily polyethylene glycol (PEG) 3350, 17 g, Oral, Daily rosuvastatin, 20 mg, Oral, Nightly senna-docusate sodium, 2 tablet, Oral, Nightly sodium chloride 0.9%, 10 mL, IntraVENous, 2 times per day Continuous Infusions:insulin regular, 1-50 Units/hr, Last Rate: 2 Units/hr (03/23/23 1004) sodium chloride, 20 mL/hr, Last Rate: 20 mL/hr (03/21/23 1444) PRN Meds:PRN medications: calcium gluconate, dextrose, dextrose, glucagon (rDNA), glucose, ipratropium-albuterol, magnesium hydroxide, magnesium sulfate OR magnesium sulfate, ondansetron ODT OR ondansetron, oxyCODONE OR oxyCODONE, potassium chloride OR potassium chloride OR potassium chloride, potassium chloride CR, sodium chloride, sodium chloride 0.9% Diagnostic Workup: I reviewed pertinent Laboratory results, Radiographic results, and Other Clinical Notes at the timeof today's encounter. Labs: No components found for: LABA1C No components found for: EAG Lab Results Component Value Date NA 137 03/23/2023 K 4.2 03/23/2023 CL 109 (H) 03/23/2023 CO2 19 (L) 03/23/2023 BUN 25 (H) 03/23/2023 CREATININE 1.40 (H) 03/23/2023 GLUCOSE 143 (H) 03/23/2023 CALCIUM 7.9 (L) 03/23/2023 No results found for: CHLPL, CHOL No results found for: TRIG No results found for: HDL No results found for: LDLCALC No results found for: VLDL No results found for: CHOLHDLRATIO No results found for: [id number] No results found for: TSH, [id number], B0ADVQG, THYROIDAB Radiology reportsas per the Radiologist Radiology: ECG 12 lead Result Date: 03/21/2023 Sinus rhythm Right bundle branch block Probable inferior infarct, age indeterminate History/Other: Past Medical History: Past Medical History: Diagnosis Date Anemia Arthritis Coronary artery disease DM (diabetes mellitus) (HCC) History of transfusion HTN (hypertension) Hyperlipidemia RBBB Testicular cancer (HCC) Past Surgical History: Past Surgical History: Procedure Laterality Date ADENOIDECTOMY APPENDECTOMY COLONOSCOPY CORONARY STENT PLACEMENT 2004 LAP,INGUINAL HERNIA REPR,INITIAL (HISTORICAL) TONSILLECTOMY Allergy(ies): Allergies Allergen Reactions Amoxicillin Amoxicillin-Pot Clavulanate Atorvastatin Other Metformin Hcl Other Other pollen causes redness of eyes Pollen Extract Cough Clavulanic Acid Rash Metformin Diarrhea and Rash Family History: No family history on file. Social History: Social History Tobacco Use Smoking status: Never Smokeless tobacco: Never Vaping Use Vaping Use: Never used Substance Use Topics Alcohol use: Not Currently Drug use: Never Portions of the information within this encounter were entered using an electronic dictation system. Best attempts were made to edit/proofread the information prior to note completion. Despite the review of information, some errors may remain. If there are questions related to the information contained within the note please contact the signing physician directly. I spent 35 minutes with the pt which involved coordination of care, medical evaluation, review of records, and/or counseling of the pt regarding his/her condition/disease state/prognosis on the date of this note. * Jonathan De Leon, CLINICAL PHARMACY COORDINATOR - TELECOM BILLING ANALYST - 03/23/2023 9:59 AM EDT Images from the original note were not included. Cardiothoracic Surgery/[facility] Progress Note PATIENT NAME: Robert Lipscomb DATE: 03/23/23 HPI: Mr. Robert Lipscomb is a 67 year old male patient with a PMHx that includes CAD s/p SUZETTE tp RCA (2004), RBBB, HTN, HLD, anemia and diabetes (A1c 7.9). He was referred to CT Surgery by Dr. Armendariz. Patienthad underwent coronary cath and was found to have severe multivessel CAD. He was seen in the OP setting by Dr. Childress. He consented and was scheduled for CABG on 03/21/23. Surgery/Procedure: 03/21/23: Dr. Childress- CABGx3 (PIERSON-LAD, SVG-OM, SVG-RPDA), LEVH Interval History: 03/23/23, POD# 02 Pt doing well over night, VSS, no new symptoms, CXR wet labs stable Review of Systems Constitutional: Positive for fatigue. Negative for chills, diaphoresis and fever. Respiratory: Negative for cough, shortness of breath and wheezing. Cardiovascular: Positive for leg swelling. Negative for chest pain and palpitations. Gastrointestinal: Negative for abdominal distention, abdominal pain, nausea and vomiting. Neurological: Negative for dizziness, syncope and light-headedness. Objective: Vitals: BP: 138/55, MAP (mmHg): 77, BP Method: Automatic Heart Rate: 86 Resp: 20 Temp: 37.3 C (99.1 F), Temp Source: Temporal BMI (Calculated): 44.18 BMP: Recent Labs 03/21/23 1130 03/22/23 01303/23/23 0004 NA 141 140 137 K 4.2 4.7 4.2 CL 112* 111* 109* CO2 22 19* 19* BUN 19 20 25* CREATININE 1.29* 1.32* 1.40* CALCIUM 8.1* 8.1* 7.9* MG 3.1* 2.2 2.2 PHOS 3.2 -- -- CBC: Recent Labs 03/21/23112903/21/23 11303/22/2313103/23/23 0004 WBC 14.6* -- 12.7* 12.6* HGB 9.4* 10.0 10.4* 9.8* HCT 28.6* -- 31.5* 30.3* PLT 134* -- 163 125* MCV 86.1 -- 85.9 87.1 RDW 13.9 -- 14.1 14.4 INR: Recent Labs 03/21/23 1130 03/22/23131 INR 1.4* 1.2* Physical Exam Vitals reviewed. Constitutional: General: He is not in acute distress. Appearance: He is not ill-appearing or diaphoretic. Cardiovascular: Rate and Rhythm: Normal rate and regular rhythm. Pulses: Normal pulses. Pulmonary: Effort: Pulmonary effort is normal. Breath sounds: No wheezing, rhonchi or rales. Comments: Diminished throughout. R>L. On NC. Abdominal: General: There is no distension. Palpations: Abdomen is soft. Tenderness: There is no abdominal tenderness. Musculoskeletal: General: Swelling present. Skin: General: Skin is warm and dry. Capillary Refill: Capillary refill takes less than 2 seconds. Findings: Bruising present. Comments: MSI well approximated. No redness, warmth or drainage noted. Neurological: General: No focal deficit present. Mental Status: He is alert and oriented to person, place, and time. Mental status is at baseline. Psychiatric: Mood and Affect: Mood normal. Behavior: Behavior normal. Thought Content: Thought content normal. Judgment: Judgment normal. Assessment: CAD s/p CABGx3 HTN HLD DM (A1c 7.9) RBBB Post operative Pulm Management: Normal Post-operative Course Post-operative Atrial Fibrillation: []Yes [x] No Acute blood loss anemia/consumptive thrombocytopenia Plan: Patient Status: ICU GDMT for CAD with EF preserved Start aspirin and statin. - start BB today Advance diet DVT prophy. Bowel regimen. Daily labs and chest xray. PRN electrolyte replacement protocols. Chest tubes to water seal once will need one more day DC tomorrow DC chest tubes tomorrow PT/OT: Home With Home health Pulmonary hygiene: IS and Acapella GI prophy: IV protonix DVT prophy:TEDs, SCDs, and Heparin SubQ Disposition: Home with home health this week Central Line: []Yes [x] No Arterial Line: []Yes [x] No Meyer: []Yes [x] No Restraints: []Yes [x] No Patient discussed and plan of day developed from multidisciplinary rounds between Cardiothoracic Surgery (Cardiothoracic Surgeon, MARIANO) and Critical Care Attending Cardiac Core Medications: ASA, Statin, and No BB due to hypotension EF: 55% (03/21/23) Blood Conservation: None noted in post-operative period Blindstitch Hemmer: Dr. Armendariz * Cynthia Wharton, PT - 03/22/2023 3:26 PM EDT Physical Therapy Facility/Department: [facility] Physical Therapy Initial Evaluation NAME: Shane Lipscomb : 1955 Date of Service: 03/22/2023 Discharge Recommendations: Home with Home health PT PT Equipment Recommendations Equipment Needed: No Other: tbd Assessment Requires PT Follow-Up: Yes Assessment: 67 y.o. male admitted to [facility] s/p CABG x3. He was Min - Mod A for bed mobility, Min A for transfers, and CGA - SBA for ambulation with the Nezzie. mainly limited d/t fatigue and pain. demogood tolerance to session. Anticipating pt will progress to home with assistance PRN at discharge. Performance Deficits/Impairments: Decreased functional mobility , Decreased ADL status, Decreased ROM, Decreased strength, Decreased balance, Decreased endurance Decision Making: Medium Complexity Activity Tolerance Activity Tolerance: Patient limited by pain, Patient limited by fatigue Patient Diagnosis(es): The primary encounter diagnosis was CAD in [place] artery. Diagnoses of Aneurysm of ascending aorta without rupture (HCC) and Coronary atherosclerosis due to calcified coronary lesion (CODE) were also pertinent to this visit. has a past medical history of Anemia, Arthritis, Coronary artery disease, DM (diabetes mellitus) (HCC), History of transfusion, HTN (hypertension), Hyperlipidemia, RBBB, and Testicular cancer (HCC). has a past surgical history that includes lap,inguinal hernia repr,initial (historical); Colonoscopy; Appendectomy; Coronary stent placement (2004); Tonsillectomy; and Adenoidectomy. Restrictions Restrictions/Precautions Restrictions/Precautions: General Precautions, Fall Risk Required Braces or Orthoses?: No Position Activity Restriction Sternal Precautions: No Pushing, No Pulling, 10# Lifting Restrictions Other position/activity restrictions: PIV, tele, chest tube, meyer Vision/Hearing Vision: Within Functional Limits Hearing: Functional/adequate for paticipation in therapy Cognition/Orientation Overall Cognitive Status: WFL Overall Orientation Status: Within Normal Limits Subjective General Chart Reviewed: Yes Patient Assessed for Rehabilitation Services: Yes Response To Previous Treatment: Not applicable Family / Caregiver Present: Yes () Diagnosis: CAD, s/p CABG x3 03/21 Follows Commands: Within Functional Limits Subjective Subjective: pt supine in bed; agreeable to PT session. Cleared by nursing. Patient Stated Goal: to feel better Social/Functional History Social/Functional History Lives With: Spouse Type of Home: House Home Layout: One level Home Access: Stairs to enter with rails Entrance Stairs - Number of Steps: 2 Home Equipment: (walking stick) ADL Assistance: Independent Homemaking Assistance: Independent Homemaking Responsibilities: Yes Ambulation Assistance: Independent Transfer Assistance: Independent Objective AROM RLE (degrees) RLE AROM: WFL AROM LLE (degrees) LLE AROM : WFL Strength RLE Comment: 3+/5 Strength LLE Comment: 3+/5 Sensation Overall Sensation Status: Intact Bed mobility Supine to Sit: Minimal assistance Sit to Supine: Moderate assistance Scooting: Minimal assistance Comment: HOB elevated, use of bed rails, trunk assist to sitting, BLE assist to supine. Transfers Sit to Stand: Minimal Assistance Stand to sit: Contact guard assistance Comment: EOB x1. Cues for holding pillow to chest, pt requesting to rest on Nezzie stating he was maintaining his precautions Ambulation Ambulation: Yes Ambulation 1 Surface 1: Level tile Device 1: (Nezzie) Assistance 1: Contact guard, Standby assistance Quality of Gait Comment 1: initially CGA, progressed to SBA, reliance on Nezzie. Multple standing rest breaks Distance (ft) 1: 300' Comments 1: HR elevated to 103 BPM with quick resolve to low 90s. SpO2 maintained Balance Posture: Good Sitting - Static: Good Sitting - Dynamic: Good Standing - Static: Good, - Standing - Dynamic: Good, - Other exercises Other exercises?: Yes Other exercises 1: P&C therex x5 each. (No handouts available so none provided) Other exercises 2: IS use x5 Plan Times per Week: 5-7x Plan Weeks: 2 wks Current Treatment Recommendations: Strengthening, Balance Training, Gait Training, Stair training, Functional Mobility Training, Transfer Training, ADL/Self-care Training, IADL Training, Endurance Training, Equipment Evaluation, Education, & procurement, Patient/Caregiver Education & Training, Safety Education & Training, Home Exercise Program Safety Safety Devices Safety Devices in Place: Yes Type of Devices: All fall risk precautions in place, Call light within reach, Gait belt, Left in bed, Nurse notified Restraints Restraints Initially in Place: No AM-PAC Score AM-PAC Inpatient Mobility Raw Score (No Stairs) : 15 Goals Encounter Problems Encounter Problems (Active) Cardiac Patient will perform bed mobility with independence in order to improve independence and prepare for out of bed mobility. Start: 03/22/23 Expected End: 04/05/23 Patient will complete sit to stand transfer with modified independence to LRD in order to improve safety and prepare for out of bed mobility. Start: 03/22/23 Expected End: 04/05/23 Patient will ambulate 600 feet or ambulate 5 minutes with modified independence with RPE of 14 or lower. Start: 03/22/23 Expected End: 04/05/23 Patient will ascend and descend 3 # stairs with modified independence rail for balance only. Start: 03/22/23 Expected End: 04/05/23 Patient will be independent with P&C exercises. Start: 03/22/23 Expected End: 04/05/23 Patient will be independent with managing secretions and home walking program. Start: 03/22/23 Expected End: 04/05/23 Education Education Given To: Patient Education Provided: PT Role, General Safety, Plan of Care, Transfer Training, Equipment, Precautions, Home Exercise Program Education Provided Comments: P&C therex, IS use, mobility needs Education Method: Verbal Barriers to Learning: None Education Outcome: Verbalized understanding Therapy Time Individual Co-treatment Time In 1335 Time Out 1402 Minutes 27 Timed Code Treatment Minutes: (mod eval, 1 gait) This therapist was wearing an appropriate mask, goggles, and gloves for entire patient encounter. Cynthia Wharton PT * Mahnaz Brooks, CLINICAL PHARMACY COORDINATOR - TELECOM BILLING ANALYST - 03/22/2023 10:50 AM EDT Department of Internal Medicine Division of Endocrinology, Diabetes, & Metabolism Endocrinology Note Patient Name: Robert Lipscomb : 1955 AGE: 67 y.o. Room/Bed: T1-126/T1-126 A Admission Date: 03/21/2023 Visit Date: 03/22/2023 Reason for Endocrine Consult: post op heart Provider/Team Requesting Consult: cts PCP: TEMO RODRIGUEZ Outpt Gluing Crew Leader: No ASSESSMENT: Cabgx3 Dm2 with hyperglycemia and intermodal customer service insulin Stress hyperglycemia Cad/htn/hld Obesity Body mass index is 43.63 kg/m . PLAN: Cont on insulin gtt per protocol ICU goal <180 GMF goal <150 POCT BG q1 Hypoglycemia per protocol Carb controlled diet ANTICIPATED ENDOCRINE HOME GOING RECOMMENDATIONS: Optimized for Discharge from Endocrine standpoint: No Home Going Endocrine Rx Recommendations-- Tbd Would benefit from starting on sglt2 jardiance or farxiga Outpt Follow Up-- pcp SUBJECTIVE/HPI: CHIEF COMPLAINT: No chief complaint on file. Cabgx3 Will clarify DM2 history and medications once extubated Bgl below Resting in bed Vss Insulin gtt 4/hr No pressors Extubated-awake alert 02 nc Slowed responses Did clarify home meds- he is unsure of victoza dose at home Per dispense report it shows 1.8 daily Checks with glucometer once a day at home usually in the 100s Sees his PCP for DM at home Spoke to nursing Type of DM: 2 Onset of DM: over 10 years per patient Home DM Medication Regimen: per chart lantus pens 70 am and 50 pm, victoza 1.8 mg daily ? , prandin4 mg tid meals po DM control (last A1c/glucose data): Lab Results Component Value Date HGBA1C 7.9 (H) 03/11/2023 Glucose Date/Time Value Ref Range Status 03/22/2023 10:34 AM 111 (H) 70 - 100 mg/dL Final 03/22/2023 09:31 AM 108 (H) 70 - 100 mg/dL Final 03/22/2023 08:05 AM 119 (H) 70 - 100 mg/dL Final 03/22/2023 07:09 AM 128 (H) 70 - 100 mg/dL Final 03/22/2023 06:01 AM 133 (H) 70 - 100 mg/dL Final 03/22/2023 05:04 AM 139 (H) 70 - 100 mg/dL Final Review of Systems ROS negative except for those mentioned in HPI. OBJECTIVE: Vitals: 03/22/23 0630 03/22/23 0645 03/22/23 0700 03/22/23922 BP: BP Location: Patient Position: Pulse: 82 79 78 Resp: Temp: TempSrc: SpO2: 97% 95% 95% Weight: Height: 5' 9 (1.753 m) PF: Physical Exam Vitals and nursing note reviewed. Constitutional: General: He is awake. He is not in acute distress. Appearance: He is ill-appearing. He is not diaphoretic. HENT: Head: Normocephalic. Mouth/Throat: Mouth: Mucous membranes are moist. Cardiovascular: Rate and Rhythm: Normal rate. Pulmonary: Effort: Pulmonary effort is normal. Abdominal: Palpations: Abdomen is soft. Tenderness: There is no abdominal tenderness. Skin: General: Skin is warm and dry. Comments: Intact incision Neurological: Mental Status: He is alert and oriented to person, place, and time. Mental status is at baseline. Psychiatric: Behavior: Behavior is slowed. 24 hour intake/output: Intake/Output Summary (Last 24 hours) at 03/22/2023 1050 Last data filed at 03/22/2023 0700 Gross per 24 hour Intake 5108.82 ml Output 2504 ml Net 2604.82 ml Diet: Adult diet Regular; 5 carb choices (75 gm/meal) Medications (as per EMR): HomeMeds: Current Outpatient Medications Medication Instructions amLODIPine (Norvasc) 5 MG tablet Daily Apoaequorin (Prevagen) 10 MG capsule No dose, route, or frequency recorded. aspirin 324 mg, Oral, Daily atenolol (Tenormin) 50 MG tablet No dose, route, or frequency recorded. chlorhexidine (Peridex) 0.12 % solution 15 mL, Mouth/Throat, Use night before and morning of surgery enalapril (Vasotec) 20 MG tablet No dose, route, or frequency recorded. insulin glargine (Lantus SoloStar) 100 UNIT/ML pen SubCUTAneous, 70 units in the morning, 50 units in the evening liraglutide (Victoza) 18 MG/3ML injection No dose, route, or frequency recorded. mupirocin (Bactroban) 2 % ointment Apply liberal amount per nostril the night before surgery and then again the morning of surgery nitroglycerin (NITROSTAT) 0.4 mg, SubLINGual, Every 5 min PRN repaglinide (PRANDIN) 4 mg, 3 times daily before meals rosuvastatin (Crestor) 20 MG tablet Nightly Scheduled Meds:acetaminophen, 1,000 mg, Oral, q8h aspirin, 81 mg, Oral, Daily chlorhexidine, 15 mL, Mouth/Throat, BID heparin, 5,000 Units, SubCUTAneous, BID Lidocaine, 1 patch, Topical, Daily mupirocin, , Nasal, BID pantoprazole, 40 mg, IntraVENous, Daily polyethylene glycol (PEG) 3350, 17 g, Oral, Daily rosuvastatin, 20 mg, Oral, Nightly senna-docusate sodium, 2 tablet, Oral, Nightly sodium chloride 0.9%, 10 mL, IntraVENous, 2 times per day vancomycin, 1,500 mg, IntraVENous, q12h Continuous Infusions:insulin regular, 1-50 Units/hr, Last Rate: 3 Units/hr (03/22/23 1041) lactated ringers, 250 mL, Last Rate: Stopped (03/21/232225) norepinephrine, 0.01-3.3 mcg/kg/min, Last Rate: 0.02 mcg/kg/min (03/22/23 0330) sodium chloride, 20 mL/hr, Last Rate: 20 mL/hr (03/21/23 144) PRN Meds:PRN medications: albumin human, calcium gluconate, dextrose, dextrose, glucagon (rDNA), glucose, ipratropium-albuterol, lactated ringers, magnesium hydroxide, magnesium sulfate OR magnesium sulfate, morphine sulfate OR morphine sulfate, norepinephrine, ondansetron ODT OR ondansetron, oxyCODONE OR oxyCODONE, potassium chloride OR potassium chloride OR potassium chloride, potassium chloride CR, sodium chloride, sodium chloride 0.9% Diagnostic Workup: I reviewed pertinent Laboratory results, Radiographic results, and Other Clinical Notes at the timeof today's encounter. Labs: No components found for: LABA1C No components found for: EAG Lab Results Component Value Date NA 140 03/22/2023 K 4.7 03/22/2023 CL 111 (H) 03/22/2023 CO2 19 (L) 03/22/2023 BUN 20 03/22/2023 CREATININE 1.32 (H) 03/22/2023 GLUCOSE 142 (H) 03/22/2023 CALCIUM 8.1 (L) 03/22/2023 No results found for: CHLPL, CHOL No results found for: TRIG No results found for: HDL No results found for: LDLCALC No results found for: VLDL No results found for: CHOLHDLRATIO No results found for: [id number] No results found for: TSH, L3IJWLU, N6LCZQK, THYROIDAB Radiology reportsas per the Radiologist Radiology: ECG 12 lead Result Date: 03/21/2023 Sinus rhythm Right bundle branch block Probable inferior infarct, age indeterminate History/Other: Past Medical History: Past Medical History: Diagnosis Date Anemia Arthritis Coronary artery disease DM (diabetes mellitus) (HCC) History of transfusion HTN (hypertension) Hyperlipidemia RBBB Testicular cancer (HCC) Past Surgical History: Past Surgical History: Procedure Laterality Date ADENOIDECTOMY APPENDECTOMY COLONOSCOPY CORONARY STENT PLACEMENT 2004 LAP,INGUINAL HERNIA REPR,INITIAL (HISTORICAL) TONSILLECTOMY Allergy(ies): Allergies Allergen Reactions Amoxicillin Amoxicillin-Pot Clavulanate Atorvastatin Other Metformin Hcl Other Other pollen causes redness of eyes Pollen Extract Cough Clavulanic Acid Rash Metformin Diarrhea and Rash Family History: No family history on file. Social History: Social History Tobacco Use Smoking status: Never Smokeless tobacco: Never Vaping Use Vaping Use: Never used Substance Use Topics Alcohol use: Not Currently Drug use: Never Portions of the information within this encounter were entered using an electronic dictation system. Best attempts were made to edit/proofread the information prior to note completion. Despite the review of information, some errors may remain. If there are questions related to the information contained within the note please contact the signing physician directly. I spent 15 minutes with the pt which involved coordination of care, medical evaluation, review of records, and/or counseling of the pt regarding his/her condition/disease state/prognosis on the date of this note. Associated attestation - Willem Mayo MD - 03/22/2023 11:46 AM EDT I have personally performed a face to face diagnostic evaluation on this patient. 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 My findings are as follows: Pt extubated Insulin drip rate 4 units/hr Pt reported that he was diagnosed with diabetes more than years ago He takes lantus 70 units in AM and 50 units at bedtime and prandin. He is not sure about victoza Vitals: BP (!) 108/43 (BP Location: Left arm, Patient Position: Lying) Pulse 78 Temp 37.3 C (99.1 F) (Core) Resp (!) 28 Ht 5' 9 (1.753 m) Wt 295 lb 6.7 oz (134 kg) SpO2 95% PF 55 L/min BMI 43.63 kg/m Respiratory: No respiratory distress, clean surgical scar Cardiovascular System: No lower extremity edema Abdomen: soft, lax, non-tender, obese A/P Type 2 DM with with hyperglycemia with intermodal customer service insulin use S/p CABG Obesity Body mass index is 44.3 kg/m . Continue insulin drip BG Q 1 hour per protocol Will switch insulin drip to sc insulin in 48 hours. In future pt will benefit from SGLT-2 Inhibitor and CGM. Old records including available PCP, ED notes and or other specialists notes are reviewed. LABs and/or imaging are reviewed as detailed in the resident's/REMOTE MEDICAL CODER/DIRECTOR OF ADVERTISING SALES's note I spent 20 minutes with the pt which involved in coordination of care, medical evaluation, review of records, and/or counseling of the pt regarding his/her condition/disease state/prognosis on the date of this note. * Nya Jacinto, MARCK - TELECOM BILLING ANALYST - 03/22/2023 5:59 AM EDT Images from the original note were not included. Cardiothoracic Surgery/[facility] Progress Note PATIENT NAME: Robert Lipscomb DATE: 03/22/23 HPI: Mr. Robert Lipscomb is a 67 year old male patient with a PMHx that includes CAD s/p SUZETTE tp RCA (2004), RBBB, HTN, HLD, anemia and diabetes (A1c 7.9). He was referred to CT Surgery by Dr. Armendariz. Patienthad underwent coronary cath and was found to have severe multivessel CAD. He was seen in the OP setting by Dr. Childress. He consented and was scheduled for CABG on 03/21/23. Surgery/Procedure: 03/21/23: Dr. Childress- CABGx3 (PIERSON-LAD, SVG-OM, SVG-RPDA), LEVH Interval History: 03/22/23, POD# 01: Afebrile, NSR on tele, BP stable on minimal levophed dose, on 2L NC and PAP device overnight. Lying in bed, awake and alert. Pain tolerable. No major complaints. Current IV Drips: Levophed: 0.02mcg/kg/min Insulin: 5u/hr A-line: Arterial Line BP 1: 108/43 Invasive Hemodynamic Monitoring Hemodynamic Monitoring Additional Assessment: Yes Blood Temperature: 37.8 C (100 F) PAP: 41/14 PAP (Mean): 26 mmHg CVP (mmHg): 11 mmHg CO (L/min): 7.05 L/min CI (L/min/m2): 2.88 L/min/m2 SVR (dyne*sec)/cm5: 590 (dyne*sec)/cm5 [place] Waveform: Appropriate waveforms, Rezeroed,o Review of Systems Constitutional: Positive for fatigue. Negative for chills, diaphoresis and fever. Respiratory: Negative for cough, shortness of breath and wheezing. Cardiovascular: Positive for leg swelling. Negative for chest pain and palpitations. Gastrointestinal: Negative for abdominal distention, abdominal pain, nausea and vomiting. Neurological: Negative for dizziness, syncope and light-headedness. Objective: CT output cc/24hrs: 530 UO cc/24hrs: 1,560 Vitals: BP: (!) 108/43, MAP (mmHg): 63, BP Method: Arterial line Heart Rate: 80 Resp: 23 Temp: 37.3 C (99.1 F), Temp Source: Core BMI (Calculated): 43.61 BMP: Recent Labs 03/21/23112903/22/23 013 NA 141 140 K 4.2 4.7 CL 112* 111* CO2 22 19* BUN 19 20 CREATININE 1.29* 1.32* CALCIUM 8.1* 8.1* MG 3.1* 2.2 PHOS 3.2 -- CBC: Recent Labs 03/21/23112903/21/23 11303/22/23 013 WBC 14.6* -- 12.7* HGB 9.4* 10.0 10.4* HCT 28.6* -- 31.5* PLT 134* -- 163 MCV 86.1 -- 85.9 RDW 13.9 -- 14.1 INR: Recent Labs 03/21/23112923 0132 INR 1.4* 1.2* Physical Exam Vitals reviewed. Constitutional: General: He is not in acute distress. Appearance: He is not ill-appearing or diaphoretic. Neck: Comments: Central line and [place] in place. Cardiovascular: Rate and Rhythm: Normal rate and regular rhythm. Pulses: Normal pulses. Pulmonary: Effort: Pulmonary effort is normal. Breath sounds: No wheezing, rhonchi or rales. Comments: Diminished throughout. R>L. On NC. Abdominal: General: There is no distension. Palpations: Abdomen is soft. Tenderness: There is no abdominal tenderness. Genitourinary: Comments: Meyer. Musculoskeletal: General: Swelling present. Skin: General: Skin is warm and dry. Capillary Refill: Capillary refill takes less than 2 seconds. Findings: Bruising present. Comments: MSI well approximated. No redness, warmth or drainage noted. Neurological: General: No focal deficit present. Mental Status: He is alert and oriented to person, place, and time. Mental status is at baseline. Psychiatric: Mood and Affect: Mood normal. Behavior: Behavior normal. Thought Content: Thought content normal. Judgment: Judgment normal. Assessment: CAD s/p CABGx3 HTN HLD DM (A1c 7.9) RBBB Post operative Pulm Management: Normal Post-operative Course Post-operative Atrial Fibrillation: []Yes [x] No Acute blood loss anemia/consumptive thrombocytopenia Plan: Patient Status: ICU DC [place]. DC levophed, check cuff pressure. DC arterial line. Start aspirin and statin. -No BB until BP stable off of levo. Advance diet, encourage PO intake. Out of bed this AM and for meals. DVT prophy. Bowel regimen. Daily labs and chest xray. PRN electrolyte replacement protocols. Chest tubes to water seal once out of bed. PT/OT: Will need evaluated. Pulmonary hygiene: IS and [place] GI prophy: IV protonix DVT prophy:TEDs, SCDs, and Heparin SubQ Disposition: TBD Central Line: [x]Yes [] No Arterial Line: [x]Yes [] No Meyer: [x]Yes [] No Restraints: []Yes [x] No Patient discussed and plan of day developed from multidisciplinary rounds between Cardiothoracic Surgery (Cardiothoracic Surgeon, MARIANO) and Critical Care Attending Cardiac Core Medications: ASA, Statin, and No BB due to hypotension EF: 55% (03/21/23) Blood Conservation: None noted in post-operative period Blindstitch Hemmer: Dr. Armendariz Associated attestation - Richardson Donaldson DO - 03/22/2023 10:28 AM EDT I have personally performed a [id number] diagnostic evaluation on this patient on date of chogfge85/29/23 . History, labs, imaging studies, and electronic medical record have been reviewed by me. This notedocumented by the []supervisor dimension warehouse [x]MARIANO reflects my history, exam, and medical decision making. I have reviewed and agree with the care plan. Changes were made in the orders as necessary. ROS documentation was reviewed and negative unless otherwise stated in HPI. Additional pertinent interval history, ROS, and physical exam findings: Post op 03/21 CABG, recovering well. Remains on small dose levo but plan to dc today. His pain is well controlled, and he has no complaints this AM Assessment: S/p CABG x3 Htn/hld DM Plan: Insulin infusion per endo Pain control adequate, PRN oxycodone x2, no morphine needed Extubated 03/21 no complications Small pleural effusion R side, not causing respiratory issues. Will POCUS tomorrow for possible thora OOB as tolerated Total critical care time for this patient with life-threatening unstable organ failure, including direct patient contact, management of life support systems, review of data including imaging and labs, and discussions with other team members and physicians at least 35 so far today, excluding procedures. * MARCK Ratliff CNP - 03/21/2023 3:06 PM EDT Images from the original note were not included. Cardiothoracic Surgery Interval Note PATIENT NAME: Robert Lipscomb : 1955 (67 y.o.) TODAY'S DATE: 03/21/2023 Interval History: Extubated, no stridor; placed on NC. Continue to monitor documented in this [facility]10-05-2023 NoteDischarge Summary Robert Lipscomb : 1955 ADMIT DATE: 03/21/2023 DISCHARGE DATE: 03/28/2023 PRIMARY CARE PHYSICIAN: TEMO RODRIGUEZ VISIT STATUS: Admission CODE STATUS: Full Code DISCHARGE DIAGNOSES: Principal Problem: CAD in [place] artery HOSPITAL COURSE: Mr. Robert Lipscomb is a 67 year old male patient with a PMHx that includes CAD s/p SUZETTE tp RCA (2004), RBBB, HTN, HLD, anemia and diabetes (A1c 7.9). He was referred to CT Surgery by Dr. Armendariz. Patient had underwent coronary cath and was found to have severe multivessel CAD. He was seen in the OP setting by Dr. Childress. He consented and was scheduled for CABG on 03/21/23. Surgery/Procedure: 03/21/23: Dr. Childress- CABGx3 (PIERSON-LAD, SVG-OM, SVG-RPDA), LEVH Pt was slow to recover and developed dehydration and an DEIDRE that was seen and treated by nephrology. Endocrine is following and has adjusted meds for his home going needs with follow up OP. His creat was 2.4 and a repeat is still pending - if it is down trending will send home today with M2B. Per Nephrology 1. Non oliguric DEIDRE ATN in setting of hemodynamic changes and decraese IV depletion due to diarrhea net negative 3 L for 48 hrs Plan: -renal US -urine studies -IV LR SIGNIFICANT DIAGNOSTIC STUDIES: Needs repeat BMP as an OP CONSULTANTS: Nephrology and Endocrine RECOMMENDED NEXT STEPS: Follow up in 5-7 days DISCHARGE MEDICATIONS: Medication List ASK your doctor about these medications amLODIPine 5 MG tablet Commonly known as: Norvasc aspirin 81 MG oral suspension atenolol 50 MG tablet Commonly known as: Tenormin chlorhexidine 0.12 % solution Commonly known as: Peridex enalapril 20 MG tablet Commonly known as: Vasotec Lantus SoloStar 100 UNIT/ML pen Generic drug: insulin glargine mupirocin 2 % ointment Commonly known as: Bactroban Apply liberal amount per nostril the night before surgery and then again the morning of surgery nitroglycerin 0.4 MG SL tablet Commonly known as: Nitrostat Prevagen 10 MG capsule Generic drug: Apoaequorin repaglinide 2 MG tablet Commonly known as: Prandin rosuvastatin 20 MG tablet Commonly known as: Crestor Victoza 18 MG/3ML injection Generic drug: liraglutide DIET: Adult diet Regular; 5 carb choices (75 gm/meal) ACTIVITY: No heavy lifting. COMPLEXITY OF FOLLOW UP: [] Moderate Complexity: follow up within 7-14 calendar days (02614) [] Severe Complexity: follow up within 7 calendar days (02875) FOLLOW UP TESTING, PENDING RESULTS OR REFERRALS AT TRANSITIONAL CARE VISIT: [x] Yes [] No PENDING STUDIES: BMP DISPOSITION: Home with Home Health Care FACILITY/HOME CARE AGENCY NAME: [facility] Follow up with MARCK Ramirez CNP [address] [place] [id number] Follow up INSTRUCTIONS TO MA/SW: Please call patient on day after discharge (must document patient contacted within 2 business days of discharge). FOLLOW UP QUESTIONS FOR MA/SW: 1. Did you get medications filled and taking them as instructed from discharge? 2. Are you following your discharge instructions from your hospital stay? 3. Please confirm patient is scheduled for a follow up appointment within the above time frame. SIGNED: MARCK Ramirez CNP 03/28/2023, 11:08 [facility]10-05-2023 Hospital course Narrative* MARCK Ramirez CNP - 03/28/2023 11:03 AM EDT Discharge Summary Robert Lipscomb : 1955 ADMIT DATE: 03/21/2023 DISCHARGE DATE: 03/28/2023 PRIMARY CARE PHYSICIAN: TEMO RODRIGUEZ VISIT STATUS: Admission CODE STATUS: Full Code DISCHARGE DIAGNOSES: Principal Problem: CAD in [place] artery HOSPITAL COURSE: Mr. Robert Lipscomb is a 67 year old male patient with a PMHx that includes CAD s/p SUZETTE tp RCA (2004), RBBB, HTN, HLD, anemia and diabetes (A1c 7.9). He was referred to CT Surgery by Dr. Armendariz. Patienthad underwent coronary cath and was found to have severe multivessel CAD. He was seen in the OP setting by Dr. Childress. He consented and was scheduled for CABG on 03/21/23. Surgery/Procedure: 03/21/23: Dr. Childress- CABGx3 (PIERSON-LAD, SVG-OM, SVG-RPDA), LEVH Pt was slow to recover and developed dehydration and an DEIDRE that was seen and treated by nephrology. Endocrine is following and has adjusted meds for his home going needs with follow up OP. His creatwas 2.4 and a repeat is still pending - if it is down trending will send home today with M2B. Per Nephrology 1. Non oliguric DEIDRE ATN in setting of hemodynamic changes and decraese IV depletion due to diarrheanet negative 3 L for 48 hrs Plan: -renal US -urine studies -IV LR SIGNIFICANT DIAGNOSTIC STUDIES: Needs repeat BMP as an OP CONSULTANTS: Nephrology and Endocrine RECOMMENDED NEXT STEPS: Follow up in 5-7 days DISCHARGE MEDICATIONS: Medication List ASK your doctor about these medications amLODIPine 5 MG tablet Commonly known as: Norvasc aspirin 81 MG oral suspension atenolol 50 MG tablet Commonly known as: Tenormin chlorhexidine 0.12 % solution Commonly known as: Peridex enalapril 20 MG tablet Commonly known as: Vasotec Lantus SoloStar 100 UNIT/ML pen Generic drug: insulin glargine mupirocin 2 % ointment Commonly known as: Bactroban Apply liberal amount per nostril the night before surgery and then again the morning of surgery nitroglycerin 0.4 MG SL tablet Commonly known as: Nitrostat Prevagen 10 MG capsule Generic drug: Apoaequorin repaglinide 2 MG tablet Commonly known as: Prandin rosuvastatin 20 MG tablet Commonly known as: Crestor Victoza 18 MG/3ML injection Generic drug: liraglutide DIET: Adult diet Regular; 5 carb choices (75 gm/meal) ACTIVITY: No heavy lifting. COMPLEXITY OF FOLLOW UP: [] Moderate Complexity: follow up within 7-14 calendar days (19024) [] Severe Complexity: follow up within 7 calendar days (49304) FOLLOW UP TESTING, PENDING RESULTS OR REFERRALS AT TRANSITIONAL CARE VISIT: [x] Yes [] No PENDING STUDIES: BMP DISPOSITION: Home with Home Health Care FACILITY/HOME CARE AGENCY NAME: [facility] Follow up with MARCK Ramirez CNP [address] [facility] [id number] Follow up INSTRUCTIONS TO MA/SW: Please call patient on day after discharge (must document patient contacted within 2 business days of discharge). FOLLOW UP QUESTIONS FOR MA/SW: 1. Did you get medications filled and taking them as instructed from discharge? 2. Are you following your discharge instructions from your hospital stay? 3. Please confirm patient is scheduled for a follow up appointment within the above time frame. SIGNED: MARCK Ramirez CNP 03/28/2023, 11:08 AM documented in this [facility]2023 Consult note* Fausto Kilpatrick MD - 03/27/2023 4:43 PM EDT [facility] [address] [place] [address] Consult Note Patient's Name: Robert Lipscomb 4:43 PM 03/27/2023 Reason for Consult: DEIDRE CKDIIIB ATTENDING/ADMITTING PHYSICIAN:Donya Childress MD Assessment: 67 y.o. 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 Non oliguric DEIDRE ATN in setting of hemodynamic changes and decraese IV depletion due to diarrheanet negative 3 L for 48 hrs Hold marleni Barb; US LR 50ml/hr Albumin 25 gm bid 2. Volume IV volume deplted third spacing 3. Electrolytes:K 3.6 no nee to replete 4. Acid/base: AGMA added LR 5. MBD: check uric acid 6. Anemia:acute on chronic 7. Medications:dose [id number] Plan: -renal US -urine studies -IV LR Thank you for allowing me to participate in care of Robert Lipscomb. Please do not hesitate to contact me at [phone] or through [employer] chat with any concerns. Fausto Kilpatrick MD 4:43 PM 03/27/2023 Chief Complaint: stephane WARNER History Obtained From: patient History of Present Ilness: Robert Lipscomb is a 67 y.o. 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 Hypotension: +++SBP 150-->110/. Multiple loose BM's overnight. 2. 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 Nephrotoxins: none 4. Surgeries: +++ s/p CABG x 3 POD # 6. ROS Constitutional: Positive for fatigue. Negative for chills, diaphoresis and fever. Respiratory: Negative for cough, shortness of breath and wheezing. Cardiovascular: Positive for leg swelling. Negative for chest pain and palpitations. Gastrointestinal: Negative for abdominal distention and abdominal pain. Neurological: Negative for dizziness, syncope and light-headedness. Past Medical History: Diagnosis Date Anemia Arthritis Coronary artery disease DM (diabetes mellitus) (HCC) History of transfusion HTN (hypertension) Hyperlipidemia RBBB Testicular cancer (HCC) Past Surgical History: Procedure Laterality Date ADENOIDECTOMY APPENDECTOMY COLONOSCOPY CORONARY STENT PLACEMENT 2004 LAP,INGUINAL HERNIA REPR,INITIAL (HISTORICAL) TONSILLECTOMY No family history on file. reports that he has never smoked. He has never used smokeless tobacco. He reports that he does not currently use alcohol. He reports that he does not use drugs. Allergies: Amoxicillin, Amoxicillin-pot clavulanate, Atorvastatin, Metformin hcl, Other, Pollen extract, Clavulanic acid, and Metformin Current Medications: Current Facility-Administered Medications Medication Dose Route Frequency Provider Last Rate Last Admin acetaminophen (Tylenol) tablet 1,000 mg 1,000 mg Oral q8h MARCK Red CNP 1,000 mg at 03/27/23 1317 aspirin chewable tablet 81 mg 81 mg Oral Daily MARCK Red CNP 81 mg at 03/27/23 0801 atenolol (Tenormin) tablet 50 mg 50 mg Oral Daily MARCK Red CNP 50 mg at 03/26/23 1124 calcium gluconate 2000 mg in 100 mL IVPB premix 2,000 mg IntraVENous PRN MARCK Red CNP dextrose 5 % infusion 100 mL/hr IntraVENous PRN MARCK Red CNP dextrose 50 % solution 12.5 g 12.5 g IntraVENous PRN MARCK Red CNP 25 g at 03/26/23 0138 glucagon (human recombinant) injection 1 mg 1 mg IntraMUSCular PRN MARCK Red CNP glucose oral gel 15 g 15 g Oral PRN MARCK Red CNP heparin injection 5,000 Units 5,000 Units SubCUTAneous BID MARCK Red CNP 5,000 Unitsat 03/27/23 0801 insulin glargine (Lantus) injection 36 Units 36 Units SubCUTAneous q AM Felipa White MD 36 Units at 03/27/23 0807 Insulin Lispro (Humalog) injection 0-12 Units 0-12 Units SubCUTAneous TID Wilelm Mayo MD 2 Units at 03/27/23 1235 Insulin Lispro (Humalog) injection 14 Units 14 Units SubCUTAneous TID Felipa White MD 14 Units at 03/27/23 1235 ipratropium-albuterol (Duo-Neb) 0.5-2.5 mg/3 mL nebulizer solution 3 mL 3 mL Nebulization TID PRN MARCK Red CNP Lidocaine 4 % patch 1 patch 1 patch Topical Daily MARCK Red CNP 1 patch at 03/27/23 0801 melatonin tablet 10 mg 10 mg Oral Nightly MARCK Red CNP 10 mg at 03/26/23 2036 ondansetron ODT (Zofran-ODT) disintegrating tablet 4 mg 4 mg Oral q8h PRN MARCK Red CNP Or ondansetron (Zofran) injection 4 mg 4 mg IntraVENous q6h PRN MARCK Red CNP 4 mg at 03/22/23 1051 oxyCODONE (Roxicodone) immediate release tablet 5 mg 5 mg Oral q6h PRN MARCK Red CNP5 mg at 03/27/23 0526 Or oxyCODONE (Roxicodone) immediate release tablet 10 mg 10 mg Oral q6h PRN Nya Jacinto APRN - TELECOM BILLING ANALYST 10 mg at 03/26/23 1401 pantoprazole (ProtoNix) EC tablet 40 mg 40 mg Oral qAM AC Nya Jacinto CLINICAL PHARMACY COORDINATOR - TELECOM BILLING ANALYST 40 mg at 03/27/23 0526 potassium chloride CR (Klor-Con M10) ER tablet 20 mEq 20 mEq Oral PRN Nya Jacinto CLINICAL PHARMACY COORDINATOR - TELECOM BILLING ANALYST 20 mEq at 03/26/23 0449 rosuvastatin (Crestor) tablet 20 mg 20 mg Oral Nightly Nya Jacinto APRN - TELECOM BILLING ANALYST 20 mg at 03/26/232035 senna-docusate sodium (Senokot-S) 8.6-50 MG tablet 2 tablet 2 tablet Oral Nightly Nya Jacinto,CLINICAL PHARMACY COORDINATOR - TELECOM BILLING ANALYST 2 tablet at 03/25/232114 Review of Systems: 10 ROS negative other than stated above Vitals: BP (!) 110/44 (BP Location: Left arm, Patient Position: Lying) Pulse 67 Temp 36.7 C (98.1 F) (Temporal) Resp 18 Ht 1.753 m (5' 9) Wt 133 kg (294 lb) SpO2 99% PF 55 L/min BMI 43.42 kg/m BLOOD PRESSURE RANGE: Systolic (24hrs), Av , Min:83 , Max:115 ; Diastolic (24hrs), Av, Min:29, Max:79 Physical exam: CTA RRR 2+ edema Labs: Recent Labs 03/26/23 0030 03/26/23 0802 03/27/23 05 WBC 18.0* 14.8* 13.9* HGB 11.1* 10.8* 9.3* HCT 33.6* 33.1* 28.3* MCV 85.0 86.5 87.4 PLT 275 229 205 Recent Labs 03/25/23 0322 03/26/23 0030 03/26/23 0145 03/26/23 0802 03/26/23 1315 03/27/23 05 NA 138 140 -- 137 134* 136 K 3.7 3.3* -- 3.9 4.3 3.6 CL 102 103 -- 101 98 102 CO2 27 25 -- 22 21* 20* GLUCOSE 161* 48* < > 119* 244* 121* MG 1.9 2.7* -- -- -- 2.5* BUN 41* 51* -- 59* 63* 78* CREATININE 1.75* 2.35* -- 2.57* 2.52* 2.87* < > = values in this interval not displayed. Ionized Calcium: No components found for: IONCA Magnesium: Lab Results Component Value Date MG 2.5 (H) 03/27/2023 Phosphorus: No results found for: PHOS Uric Acid: No results found for: URICACID PT/INR: No results found for: PROTIME, INR Microalbumen/Creatinine ratio: No components found for: RUCREAT IRON: No results found for: IRON Iron Saturation: No components found for: LABIRON TIBC: No results found for: TIBC FERRITIN: No results found for: FERRITIN Input / Output: 24 HR: Intake/Output Summary (Last 24 hours) at 03/27/2023 1643 Last data filed at 03/27/2023 1200 Gross per 24 hour Intake 1855 ml Output -- Net 1855 ml IV Intake: P.O. (mL): 350 mL Meyer: [REMOVED] Urethral Catheter Temperature probe 16 Fr.-Output (mL): 1500 mL * Padma Talavera - 03/25/2023 11:29 AM EDTAssociated Order(s): IP CONSULT TO CARDIAC REHAB Received referral and reviewed chart. Phase II Cardiac Rehab Referral discussed with Robert Lipscomb.Patient prefers cardiac rehab at [facility] location. Given information on cardiac rehabat preferred location. * Courtney Ny RD - 03/22/2023 12:13 PM EDTAssociated Order(s): IP CONSULT TO DIETITIAN Nutrition Assessment Type and Reason for Visit: Initial, Consult, Patient Education (s/p open heart surgery) Nutrition Recommendations/Plan: Continue 5 carb choices (75 g/meal) diet as ordered Per MNT protocol, will order Ensure HP BID to promote postop healing and adequate p.o. intake (160 kcal, 16 g protein, 8 oz each) Provided heart healthy and diabetes diet handouts with [facility] RD phone number for reference. Will return prior to discharge for detailed instruction (as able) RD will monitor overall nutrition status and follow weekly Malnutrition Assessment: Malnutrition Status: At risk for malnutrition (Comment) (nausea s/p open heart surgery) Nutrition Assessment: Pt with PMH including CAD, drug-eluting stent to the RCA in 2004, RBBB, HTN, hyperlipidemia, anemia, and diabetes (A1C 7.8). Had presentation with mild chest pain prompting and subsequent stress testshowed ischemia prompting coronary angiogram . LHC showed MV CAD. Pt presented 03/21 and underwent CABG x3. POD #1. Extubated and diet ordered. Pt is up in chair, ordered a meal, however has not eatenyet. he endorses nausea earlier today which was relieved with anti-emetics. Prior to admission, pt was eating well with stable weight. He endorses prior diabetes diet education and good understanding, denies prior heart healthy diet education and is accepting of diabetes and heart healthy diet handout with [facility] RD phone number, which were provided. Pt is agreeable to ONS Estimated Daily Nutrient Needs: Energy Requirements Based On: Kcal/kg Weight Used for Energy Requirements: Cuney (25-30 kcal/kg) Weight for Energy Calculation (kg): 72.6 kg Total Energy Requirements (kcals/day): 4452-4630 Weight Used for Protein Requirements: Cuney (1.2-1.5 g/kg) Weight in Kg Used for Protein Requirements: 72.6 kg Estimated Total Protein (g/day): 87-109 Estimated Daily Total Fluid (ml/day): or per MD Nutrition Related Findings: Nutrition History: Independent of feeding. Lives with: Spouse/significant other GI symptoms: Nausea (resolved). Elmer Scale Score: 20 .Wound Type: Surgical Incision Net IO Since Admission: 2,493.82 mL [03/22/23 1213] Edema: RUE Edema: Trace, LUE Edema: Trace, RLE Edema: Non-pitting, LLE Edema: Non-pitting Bowel Sounds (All Quadrants): Audible Abdomen Inspection: Soft, Rounded Labs and meds reviewed: acetaminophen, 1,000 mg, Oral, q8h aspirin, 81 mg, Oral, Daily chlorhexidine, 15 mL, Mouth/Throat, BID heparin, 5,000 Units, SubCUTAneous, BID Lidocaine, 1 patch, Topical, Daily mupirocin, , Nasal, BID pantoprazole, 40 mg, IntraVENous, Daily polyethylene glycol (PEG) 3350, 17 g, Oral, Daily rosuvastatin, 20 mg, Oral, Nightly senna-docusate sodium, 2 tablet, Oral, Nightly sodium chloride 0.9%, 10 mL, IntraVENous, 2 times per day vancomycin, 1,500 mg, IntraVENous, q12h insulin regular, 1-50 Units/hr, Last Rate: 3 Units/hr (03/22/23 1041) lactated ringers, 250 mL, Last Rate: Stopped (03/21/23 2226) norepinephrine, 0.01-3.3 mcg/kg/min, Last Rate: 0.02 mcg/kg/min (03/22/23 0330) sodium chloride, 20 mL/hr, Last Rate: 20 mL/hr (03/21/23 1444) BMP: Recent Labs 03/21/23 1130 03/22/23 0132 NA 141 140 K 4.2 4.7 CL 112* 111* CO2 22 19* BUN 19 20 CREATININE 1.29* 1.32* GLUCOSE 155* 142* CALCIUM 8.1* 8.1* MG 3.1* 2.2 PHOS 3.2 -- Recent Labs 03/22/23 0504 03/22/23 0601 03/22/23 0709 03/22/23 0805 03/22/23 0931 03/22/23 1034 POCGLU 139* 133* 128* 119* 108* 111* Lab Results Component Value Date HGBA1C 7.9 (H) 03/11/2023 Lab Results Component Value Date LVEFPHYS 55 03/21/2023 Current Nutrition Therapies: Adult diet Regular; 5 carb choices (75 gm/meal) Current Oral Intake Average Meal Intake: Unable to assess (nothing yet) Average Supplements Intake: None Ordered Anthropometric Measures: Height: 175.3 cm (5' 9) Current Body Weight: 134 kg (295 lb 6.7 oz) (03/22) Admission Body Weight: 136 kg (300 lb) (stated) Cuney Body Weight (lbs) (Calculated): 160 lbs Cuney Body Weight (Kg) (Calculated): 73 kg % Cuney Body Weight (Calculated): 184.6 % BMI (kg/m2) (Calculated): 43.6 BMI Categories: Obese Class 3 (BMI 40.0 or greater) Wt Readings from Last 10 Encounters: 03/22/23 134 kg (295 lb 6.7 oz) 03/11/23 135 kg (298 lb 8 oz) 02/27/23 135 kg (298 lb 6.4 oz) Nutrition Diagnosis: Increased nutrient needs related to increase demand for energy/nutrients as evidenced by wounds (sugical) Nutrition Interventions: Food and/or Nutrient Delivery: Continue Current Diet, Start Oral Nutrition Supplement Nutrition Education/Counseling: Education needed, Education initiated Coordination of Nutrition Care: Continue to monitor while inpatient Goals: Goals: PO intake 75% or greater, prior to discharge Nutrition Monitoring and Evaluation: Behavioral-Environmental Outcomes: Knowledge or Skill Food/Nutrient Intake Outcomes: Food and Nutrient Intake, Supplement Intake Physical Signs/Symptoms Outcomes: Biochemical Data, Chewing or Swallowing, GI Status, Nausea or Vomiting, Fluid Status or Edema, Skin, Weight Discharge Planning: Too soon to determine Courtney Ny RD, LD Contact: *[phone] or via [employer] chat * Mahnaz Brooks, CLINICAL PHARMACY COORDINATOR - TELECOM BILLING ANALYST - 03/21/2023 12:59 PM EDTAssociated Order(s): IP CONSULT TO ENDOCRINOLOGY Department of Internal Medicine Division of Endocrinology, Diabetes, & Metabolism Endocrinology Note Patient Name: Robert Lipscomb : 1955 AGE: 67 y.o. Room/Bed: T1-126/T1-126 A Admission Date: 03/21/2023 Visit Date: 03/21/2023 Reason for Endocrine Consult: post op heart Provider/Team Requesting Consult: cts PCP: TEMO RODRIGUEZ Outpt Gluing Crew Leader: No ASSESSMENT: Cabgx3 Dm2 with hyperglycemia and intermodal customer service insulin Stress hyperglycemia Cad/htn/hld Obesity Body mass index is 44.3 kg/m . PLAN: Cont on insulin gtt ICU goal <180 GMF goal <150 POCT BG ACHS Hypoglycemia per protocol Carb controlled diet ANTICIPATED ENDOCRINE HOME GOING RECOMMENDATIONS: Optimized for Discharge from Endocrine standpoint: No Home Going Endocrine Rx Recommendations-- Tbd Would benefit from starting on sglt2 jardiance or farxiga Outpt Follow Up-- pcp SUBJECTIVE/HPI: CHIEF COMPLAINT: No chief complaint on file. Cabgx3 Will clarify DM2 history and medications once extubated Bgl below Resting in bed Vss Remains Intubated sedated at this time Insulin gtt 4/hr On pressors Ct in place No family in room Spoke with nursing team in room Will clarify home meds once extubated Type of DM: 2 Onset of DM: not clear Home DM Medication Regimen: per chart lantus pens 70 am and 50 pm, victoza 18 mg daily, prandin 4 mg tid meals po DM control (last A1c/glucose data): Lab Results Component Value Date HGBA1C 7.9 (H) 03/11/2023 Glucose Date/Time Value Ref Range Status 03/21/2023 12:17 PM 142 (H) 70 - 100 mg/dL Final 03/21/2023 05:54 AM 181 (H) 70 - 100 mg/dL Final Review of Systems ROS negative except for those mentioned in HPI. OBJECTIVE: Vitals: 03/21/23 0551 BP: (!) 145/63 Pulse: 77 Resp: 16 Temp: 36.3 C (97.3 F) TempSrc: Temporal SpO2: 97% Weight: 300 lb (136 kg) Height: 5' 9 (1.753 m) Physical Exam Vitals and nursing note reviewed. Constitutional: General: He is not in acute distress. Appearance: He is ill-appearing. He is not diaphoretic. Interventions: He is sedated and intubated. HENT: Head: Normocephalic and atraumatic. Mouth/Throat: Mouth: Mucous membranes are moist. Cardiovascular: Rate and Rhythm: Normal rate. Pulmonary: Effort: Pulmonary effort is normal. He is intubated. Abdominal: Palpations: Abdomen is soft. Skin: General: Skin is warm and dry. Comments: Intact incision 24 hour intake/output: Intake/Output Summary (Last 24 hours) at 03/21/2023 1259 Last data filed at 03/21/2023 1224 Gross per 24 hour Intake 2902.82 ml Output 880 ml Net 2022.82 ml Diet: NPO diet Medications (as per EMR): HomeMeds: Current Outpatient Medications Medication Instructions amLODIPine (Norvasc) 5 MG tablet Daily Apoaequorin (Prevagen) 10 MG capsule No dose, route, or frequency recorded. aspirin 324 mg, Oral, Daily atenolol (Tenormin) 50 MG tablet No dose, route, or frequency recorded. chlorhexidine (Peridex) 0.12 % solution 15 mL, Mouth/Throat, Use night before and morning of surgery enalapril (Vasotec) 20 MG tablet No dose, route, or frequency recorded. insulin glargine (Lantus SoloStar) 100 UNIT/ML pen SubCUTAneous, 70 units in the morning, 50 units in the evening liraglutide (Victoza) 18 MG/3ML injection No dose, route, or frequency recorded. mupirocin (Bactroban) 2 % ointment Apply liberal amount per nostril the night before surgery and then again the morning of surgery nitroglycerin (NITROSTAT) 0.4 mg, SubLINGual, Every 5 min PRN repaglinide (PRANDIN) 4 mg, 3 times daily before meals rosuvastatin (Crestor) 20 MG tablet Nightly Scheduled Meds:acetaminophen, 1,000 mg, Oral, q8h chlorhexidine, 15 mL, Mouth/Throat, BID Lidocaine, 1 patch, Topical, Daily mupirocin, , Nasal, BID [START ON 03/22/2023] pantoprazole, 40 mg, IntraVENous, Daily polyethylene glycol (PEG) 3350, 17 g, Oral, Daily senna-docusate sodium, 2 tablet, Oral, Nightly sodium chloride 0.9%, 10 mL, IntraVENous, 2 times per day sugammadex, 4 mg/kg, IntraVENous, Once vancomycin, 1,500 mg, IntraVENous, q12h Continuous Infusions:EPINEPHrine, 0.01-0.2 mcg/kg/min insulin regular, 1-50 Units/hr, Last Rate: 3 Units/hr (03/21/23 1220) lactated ringers, 250 mL niCARdipine, 3-15 mg/hr nitroglycerin, 5-300 mcg/min norepinephrine, 0.01-3.3 mcg/kg/min propofol, 5-50 mcg/kg/min, Last Rate: 40 mcg/kg/min (03/21/23 1215) sodium chloride, 20 mL/hr PRN Meds:PRN medications: albumin human, calcium gluconate, dextrose, dextrose, EPINEPHrine, glucagon (rDNA), glucose, ipratropium-albuterol, lactated ringers, magnesium hydroxide, magnesium sulfate OR magnesium sulfate, morphine sulfate OR morphine sulfate, niCARdipine, nitroglycerin, norepinephrine, ondansetron ODT OR ondansetron, oxyCODONE OR oxyCODONE, potassium chloride OR potassium chloride OR potassium chloride, [START ON 03/22/2023] potassium chloride CR, sodium chloride, sodium chloride 0.9% Diagnostic Workup: I reviewed pertinent Laboratory results, Radiographic results, and Other Clinical Notes at the timeof today's encounter. Labs: No components found for: LABA1C No components found for: EAG Lab Results Component Value Date NA 141 03/21/2023 K 4.2 03/21/2023 CL 112 (H) 03/21/2023 CO2 22 03/21/2023 BUN 19 03/21/2023 CREATININE 1.29 (H) 03/21/2023 GLUCOSE 155 (H) 03/21/2023 CALCIUM 8.1 (L) 03/21/2023 No results found for: CHLPL, CHOL No results found for: TRIG No results found for: HDL No results found for: LDLCALC No results found for: VLDL No results found for: CHOLHDLRATIO No results found for: [id number] No results found for: TSH, [id number], [id number], THYROIDAB Radiology reportsas per the Radiologist Radiology: ECG 12 lead Result Date: 03/21/2023 Sinus rhythm Right bundle branch block Probable inferior infarct, age indeterminate History/Other: Past Medical History: Past Medical History: Diagnosis Date Anemia Arthritis Coronary artery disease DM (diabetes mellitus) (HCC) History of transfusion HTN (hypertension) Hyperlipidemia RBBB Testicular cancer (HCC) Past Surgical History: Past Surgical History: Procedure Laterality Date ADENOIDECTOMY APPENDECTOMY COLONOSCOPY CORONARY STENT PLACEMENT 2004 LAP,INGUINAL HERNIA REPR,INITIAL (HISTORICAL) TONSILLECTOMY Allergy(ies): Allergies Allergen Reactions Amoxicillin Amoxicillin-Pot Clavulanate Atorvastatin Other Metformin Hcl Other Other pollen causes redness of eyes Pollen Extract Cough Clavulanic Acid Rash Metformin Diarrhea and Rash Family History: No family history on file. Social History: Social History Tobacco Use Smoking status: Never Smokeless tobacco: Never Vaping Use Vaping Use: Never used Substance Use Topics Alcohol use: Not Currently Drug use: Never Portions of the information within this encounter were entered using an electronic dictation system. Best attempts were made to edit/proofread the information prior to note completion. Despite the review of information, some errors may remain. If there are questions related to the information contained within the note please contact the signing physician directly. I spent 30 minutes with the pt which involved coordination of care, medical evaluation, review of records, and/or counseling of the pt regarding his/her condition/disease state/prognosis on the date of this note. Associated attestation - Willem Mayo MD - 03/21/2023 2:15 PM EDT I have personally performed a face to face diagnostic evaluation on this patient. 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 My findings are as follows: S/p CABG Insulin drip rate 3 units/hr Per chart review: pt has diabetes on basal insulin, victoza, and prandin Lab Results Component Value Date HGBA1C 7.9 (H) 03/11/2023 Vitals: BP (!) 145/63 Pulse 77 Temp 36.3 C (97.3 F) (Temporal) Resp 16 Ht 5' 9 (1.753 m) Wt 300 lb (136 kg) SpO2 97% BMI 44.30 kg/m Constitutional: intubated Respiratory: No respiratory distress, clean surgical scar Cardiovascular System: No lower extremity edema Abdomen: soft, lax, non-tender, obese A/P Type 2 DM with with hyperglycemia with intermodal customer service insulin use S/p CABG Obesity Body mass index is 44.3 kg/m . Continue insulin drip BG Q 1 hour per protocol Will switch insulin drip to sc insulin in 48 hours. In future pt will benefit from SGLT-2 Inhibitor and CGM. Old records including available PCP, ED notes and or other specialists notes are reviewed. LABs and/or imaging are reviewed as detailed in the resident's/REMOTE MEDICAL CODER/DIRECTOR OF ADVERTISING SALES's note * Nya Jacinto, CLINICAL PHARMACY COORDINATOR - TELECOM BILLING ANALYST - 03/21/2023 12:30 PM EDT Images from the original note were not included. [facility]: Critical Care Consultation Note Date: 03/21/23 PATIENT NAME: Robert Lipscomb : 1955 (67 y.o.) Reason for Consult: Critical Care & Vent Management HPI: Mr. Robert Lipscomb is a 67 year old male patient with a PMHx that includes CAD s/p SUZETTE tp RCA (2004), RBBB, HTN, HLD, anemia and diabetes (A1c 7.9). He was referred to CT Surgery by Dr. Armendariz. Patienthad underwent coronary cath and was found to have severe multivessel CAD. He was seen in the OP setting by Dr. Childress. He consented and was scheduled for CABG on 03/21/23. Surgery: 03/21/23: Dr. Childress- CABGx3 (PIERSON-LAD, SVG-OM, SVG-RPDA), LEVH Interval History: 03/21/23: POD #0: Patient arrived to the unit, intubated and sedated. Surgical hand off completed below. Review of Systems Unable to perform ROS: Intubated Allergies: Amoxicillin, Amoxicillin-pot clavulanate, Atorvastatin, Metformin hcl, Other, Pollen extract, Clavulanic acid, and Metformin Past Medical History: has a past medical history of Anemia, Arthritis, Coronary artery disease, DM (diabetes mellitus) (HCC), History of transfusion, HTN (hypertension), Hyperlipidemia, RBBB, and Testicular cancer (HCC). Past Surgical History: has a past surgical history that includes lap,inguinal hernia repr,initial (historical); Colonoscopy; Appendectomy; Coronary stent placement (2004); Tonsillectomy; and Adenoidectomy. Social History: reports that he has never smoked. He has never used smokeless tobacco. He reports that he does not currently use alcohol. He reports that he does not use drugs. Family History: family history is not on file. Medications: Prior to Admission medications Medication Sig Start Date End Date Taking? Authorizing Provider amLODIPine (Norvasc) 5 MG tablet daily. 02/13/23 Yes Historical Provider, Apoaequorin (Prevagen) 10 MG capsule Yes Historical Provider, aspirin 81 MG oral suspension Take 324 mg by mouth daily. Yes Historical Provider, atenolol (Tenormin) 50 MG tablet Yes Historical Provider, chlorhexidine (Peridex) 0.12 % solution Use 15 mL in the mouth or throat. Use night before and morning of surgery Yes Historical Provider, enalapril (Vasotec) 20 MG tablet Yes Historical Provider, insulin glargine (Lantus SoloStar) 100 UNIT/ML pen Inject under the skin. 70 units in the morning, 50 units in the evening Yes Historical Provider, liraglutide (Victoza) 18 MG/3ML injection Yes Historical Provider, mupirocin (Bactroban) 2 % ointment Apply liberal amount per nostril the night before surgery and then again the morning of surgery 02/28/23 Yes Jonathan De Leon, CLINICAL PHARMACY COORDINATOR - TELECOM BILLING ANALYST repaglinide (Prandin) 2 MG tablet 4 mg in the morning and 4 mg at noon and 4 mg in the evening. Take before meals. Yes Historical Provider, rosuvastatin (Crestor) 20 MG tablet Nightly. Yes Historical Provider, nitroglycerin (Nitrostat) 0.[address] 0.4 mg under the tongue every 5 minutes as needed for chest pain. Historical Provider, Surgery Hand Off: Arrival Time in HLU: 1214 Complications/Pertinent Events: None Last Paralytic: 932 Medications given in route: Gtts OR report Propofol: 15mcg/kg/min Insulin: 3 Amicar: 29 Current gtts upon arrival Epinephrine: Norepinephrine: Phenylephrine: Vasopressin: Nitroglycerin: Nitroprusside: Dobutamine: Milrinone: Propofol: 25mcg/kg/min Insulin: 3 Amicar: 29 Devices: Epicardial wires: yes [] no [x] IABP: yes [] no [x] LVAD: yes [] no [x] Speed: Equipment: Back up controller yes [] no [x] Blood Transfusions Intra Op: yes [] no [x] CellSaver: Yes Vital Signs including Cardiac Numbers (if indicated) at Conclusion of Hand-off OR HLU CO 6.2 7.55 CI 2.5 3.08 CVP 11 7 SVR 1018 720 PAP 34/11 55/23 Additional Interventions/Misc during Handoff Objective: BP (!) 145/63 Pulse 77 Temp 36.3 C (97.3 F) (Temporal) Resp 16 Ht 5' 9 (1.753 m) Wt 300 lb (136 kg) SpO2 97% BMI 44.30 kg/m Intake/Output Summary (Last 24 hours) at 03/21/2023 1231 Last data filed at 03/21/2023 1224 Gross per 24 hour Intake 2902.82 ml Output 880 ml Net 2022.82 ml Physical Exam Constitutional: Interventions: He is sedated and intubated. HENT: Mouth/Throat: Comments: ETT/OG in place. Neck: Comments: Central line in place. Cardiovascular: Rate and Rhythm: Normal rate and regular rhythm. Pulses: Normal pulses. Heart sounds: No murmur heard. Pulmonary: Effort: He is intubated. Breath sounds: No wheezing, rhonchi or rales. Comments: Ventilator assisted. Abdominal: General: There is no distension. Palpations: Abdomen is soft. Comments: Chest tubes in place. Genitourinary: Comments: Meyer. Musculoskeletal: Right lower leg: No edema. Left lower leg: No edema. Skin: General: Skin is dry. Capillary Refill: Capillary refill takes less than 2 seconds. Findings: Bruising present. Comments: Cool. MSI well approximated. No redness, warmth or drainage. LEVH site covered with MARLENI wrap. Neurological: Comments: Intubated and sedated. Psychiatric: Comments: YUNG. Diagnostics: Reviewed in EMR Labs: Reviewed in EMR BMP: Recent Labs 03/21/23 1130 NA 141 K 4.2 CL 112* CO2 22 BUN 19 CREATININE 1.29* CALCIUM 8.1* MG 3.1* PHOS 3.2 CBC: Recent Labs 03/21/23 1130 03/21/23 1133 WBC 14.6* -- HGB 9.4* 10.0 HCT 28.6* -- PLT 134* -- MCV 86.1 -- RDW 13.9 -- INR: Recent Labs 03/21/23 1130 INR 1.4* Assessment: CAD s/p CABGx3 HTN HLD DM (A1c 7.9) RBBB Post operative Pulm Management: Normal Post-operative Course Post-operative Atrial Fibrillation: []Yes [x] No Acute blood loss anemia/consumptive thrombocytopenia Plan: - Sugamadex - Give 250mL LR and 25g albumin for labile BP - Wean sedation as able, goal RASS -1 to 0 - SAT/SBT when able - PRN IV morphine and PO oxy, scheduled acetaminophen and lidocaine patches - Chest xray STAT post-op - Hemodynamic goals: CI >2.0, SBP 90-130 mmHg, MAP 60-75 - PRN Hypertension 1st option Cardene gtt 2nd option or if Cardene unavailable Nitro -PRN Hypotension CI >2.0 euvolemic with low SVR- Levophed gtt CI <2.0 euvolemic - Epinephrine gtt - Temp pacing wires/mode: None - Chest tubes: no air leak or fluctuation noted, suction -20 - Vancomycin - surgical prophy q12h for 3 doses - Wean to Extubation: Arrival Time in unit: 1214 - Vent: ACVC+, TV 6ml/kg/min, rate 12, fio2 100% PEEP 8 VAP protocol: HOB >30 degrees; peridex BID - HgbA1c: 7.9 - Blood glucose 142 - Insulin gtt; per Endo/protocol - GI prophy: Protonix IV daily Patient treatment plan and plan of care discuss with Dr. Donaldson Associated attestation - Richardson Donaldson DO - 03/21/2023 5:16 PM EDT I have personally performed a xdwp-vs-ahee diagnostic evaluation on this patient on date of rodfosy96/28/23 . History, labs, imaging studies, and electronic medical record have been reviewed by me. This notedocumented by the []supervisor dimension warehouse [x]MARIANO reflects my history, exam, and medical decision making. I have reviewed and agree with the care plan. Changes were made in the orders as necessary. ROS documentation was reviewed and negative unless otherwise stated in HPI. Additional pertinent interval history, ROS, and physical exam findings: Patient with uncomplicated procedure, was doing well and passing SBT therefore extubated without difficulty. Plan for continued supportive care Assessment: S/p CABG 03/21 CAD RBBB HTN/HLD DM Plan: Extubated with no respiratory distress Insulin per protocol Giving volume for Bps Chest tubes to suction Pain control Total critical care time for this patient with life-threatening unstable organ failure, including direct patient contact, management of life support systems, review of data including imaging and labs, and discussions with other team members and physicians at least 35 so far today, excluding procedures. documented in this [facility]2023 NoteCare Management Progress Note Patient remains on HLU s/p CABG x 3 POD # 6. VSS, on 2L NC, SCr continues to rise, gentle hydration, WBC down trending, insulin per endocrine and PT/OT recommending home with [facility]. Patient from home with [facility] has home care set up. Discharge Milestones and Delays Expected Date/Time: 03/29/[address] discharge order Complete med reconciliation Case mgmt discharge readiness Clinical Stability Diagnsotic Workup Expected Discharge History Expected Date/Time Set By Reviewed At 03/29/2023 Estrella Aguilar RN 03/27/2023 8:00 AM 03/27/2023 Estrella Aguilar RN 03/26/2023 9:24 AM 03/26/2023 Estrella Aguilar RN 03/25/2023 8:41 AM 03/28/2023 Estrella Aguilar RN 03/22/2023 10:29 AM 03/28/2023 Nya Jacinto APRN - EDDY 03/21/2023 12:20 PM 03/28/2023 Jonathan De Leon APRN - TELECOM BILLING ANALYST 03/21/2023 5:42 AM Length of Stay (Days): 6 GMLOS: 5.8 [facility]10-03-2023 NoteCare Management Progress Note Patient remains on HLU s/p CABG x 3 POD # 5. VSS, on 2L NC, in NSR on tele, SCr bumped, WBC increased, stop diuresis, 1L fluid, dc bowel regimen (multiple loose stool) insulin per endocrine and PT recommending home with HHC. Patient from home with [facility] has home care set up. Discharge Milestones and Delays Expected Date/Time: 03/27/[address] discharge order Complete med reconciliation Case mgmt discharge readiness Clinical Stability Diagnsotic Workup Expected Discharge History Expected Date/Time Set By Reviewed At 03/27/2023 Estrella Aguilar RN 03/26/2023 9:24 AM 03/26/2023 Estrella Aguilar RN 03/25/2023 8:41 AM 03/28/2023 Estrella Aguilar RN 03/22/2023 10:29 AM 03/28/2023 Nya Jacinto, CLINICAL PHARMACY COORDINATOR - [facility] 03/21/2023 12:20 PM 03/28/2023 Jonathan De Leon CLINICAL PHARMACY COORDINATOR - [facility] 03/21/2023 5:42 AM Length of Stay (Days): 5 GMLOS: 5.8 [facility]10-02-2023 NoteReceived referral and reviewed chart. Phase II Cardiac Rehab Referral discussed with Robert Lipscomb. Patient prefers cardiac rehab at [facility] location. Given information on cardiac rehab at preferred location. [place] [address]-02-2023 NoteCare Management Progress Note Patient remains on HLU s/p CABG x 3 POD # 4. VSS, on 2L NC, NSR on tele, continuing IV diuresis, added MOM to bowel regimen, insulin per endocrine and PT recommending home with [facility]. Patient from home with [facility] following for home care needs. Discharge Milestones and Delays Expected Date/Time: 03/26/[address] discharge order Complete med reconciliation Case mgmt discharge readiness Clinical Stability Diagnsotic Workup Expected Discharge History Expected Date/Time Set By Reviewed At 03/26/2023 Estrella Aguilar RN 03/25/2023 8:41 AM 03/28/2023 Estrella Aguilar RN 03/22/2023 10:29 AM 03/28/2023 Nya Jacinto, CLINICAL PHARMACY COORDINATOR - [facility] 03/21/2023 12:20 PM 03/28/2023 Jonathan De Leon CLINICAL PHARMACY COORDINATOR - [facility] 03/21/2023 5:42 AM Length of Stay (Days): 4 GMLOS: 5.8 [facility]10-02-2023 [facility] Respiratory Care Department Progress Note Comment or reasoning for refusal: Patient was seen in attempts to fulfill CPAP/BiPAP/AutoPAP order. Patient refused PAP therapy/study at this time. Patient was educated on medical need and reasoning for physician order to ensure patient was making an informed medical decision. All of the patient's questions were answered at this time and patient was informed that if the patient changes their mind regarding wearing PAP to hit their call light or inform their nurse to contact Respiratory. A second, consecutive night of refusing PAP therapy/study results in order completion in the EMR. If future CPAP/BiPAP/AutoPAP therapy or study is indicated please place another order in the EMR and the assigned Respiratory Therapist will reattempt to fulfill orders. Reason for refusal: Thank you for involving Respiratory in the care of this patient, [facility]10-01-2023 NoteStart PACC Note Home Health Referral Educated patient and spouse on Home Care and services available. Patient offered choice of available HHC and agreeable to SN/PT services with [facility]. Care Types: [facility] Program Isolation Precautions: No active isolations Social Determinates of Health: Tobacco Use: Low Risk (03/22/2023) Patient History Smoking Tobacco Use: Never Smokeless Tobacco Use: Never Passive Exposure: Not on file Social History Substance and Sexual Activity Alcohol Use Not Currently Social History Substance and Sexual Activity Drug Use Never Does the patient have any financial resource strain? No Does the patient have any food insecurities? No Does the patient have any housing instabilities? No If any of the above is noted as yes - consider a MANAGER PUBLISHING evaluation once the patient returns home. START PATIENT REGISTRATION INFORMATION Order Information Order Signing Physician: Donya Childress MD Service Ordered RN ?: Yes Service Ordered PT ?: Yes Service Ordered OT ?: No Service Ordered ST ?: No Service Ordered MANAGER PUBLISHING?:No Service Ordered CATASTROPHE CLAIMS SUPERVISOR?: No Following Physician:Donya Childress MD Following Physician Overseeing Physician: Donya Childress MD (Required for Residents only) Agreeable to Follow? Yes Date/Time of Call 03/24/23 4:33 PM, Spoke with: Office is closed verified in [facility] Care Coordination Same Day SOC?: No Primary Care Physician: TEMO RODRIGUEZ Primary Care Physician Primary Care Physician Address: [address] [place] [id number] Visit Instructions: N/A Service Discharge Location Type: Home with Home Health Care Service Facility Name: N/A Service Floor Facility: N/A Service Room No: N/A Demographics Patient Last Name: Ty Patient First Name: Robert Language/Communication Barrier: N/A Service Address: [address] [place] [address] Service City: [facility] ST: [place] Service ZIP: [address] [facility] (home) Other phone numbers: Telephone Information: Emergency Contact: Extended Emergency Contact Information Primary Emergency Contact: Cat Lipscomb Address: [address] [place] [address] Mobile Relation: Spouse Admission Information Admit Date: 03/21/2023 Patient status at discharge: Inpatient Admitting Diagnosis Atherosclerotic heart disease of [place] coronary artery without angina pectoris [I25.10] CAD in [place] artery [I25.10] Caregiver Information Caregiver First Name: Cat Caregiver Last Name: Ty Caregiver Relationship to Patient spouse Caregiver Caregiver Notes: N/A [employer] List No END PATIENT REGISTRATION INFORMATION Pt Home Health goal to remain at home COVID Status 1. Do you have any upper respiratory symptoms (cough, SOB, Fever)? No 2. Have you been exposed to anyone with COVID-19 Virus? No Answer only if pending or positive for COVID-19? 1. Agreeable to wear PPE at each visit? No 2. Is the hospital supplying them with PPE upon Discharge? No Start PACC Summary General Report/ Additional Comments Mr. Robert Lipscomb is a 67 year old male patient with a PMHx that includes CAD s/p SUZETTE tp RCA (2004), RBBB, HTN, HLD, anemia and diabetes (A1c 7.9). He was referred to CT Surgery by Dr. Armendariz. Patient had underwent coronary cath and was found to have severe multivessel CAD. He was seen in the OP setting by Dr. Childress. He consented and was scheduled for CABG on 03/21/23. Discharge Date: TB Referral Source-PACC: (Hospital/Unit): [facility] / T1/ A End PACC [facility]10-01-2023 Hospital Discharge instructions* Discharge Instr - Other Orders* Korin Garcia LPN - 03/24/2023 3:55 PM EDT Discharging to Facility/ Agency Name: [facility] Address: [address] [place] [address] documented in this [facility]10-01-2023 [facility] Respiratory Care Department Progress Note Comment or reasoning for refusal: Patient was seen in attempts to fulfill CPAP/BiPAP/AutoPAP order. Patient refused PAP therapy/study at this time. Patient was educated on medical need and reasoning for physician order to ensure patient was making an informed medical decision. All of the patient's questions were answered at this time and patient was informed that if the patient changes their mind regarding wearing PAP to hit their call light or inform their nurse to contact Respiratory. A second, consecutive night of refusing PAP therapy/study results in order completion in the EMR. If future CPAP/BiPAP/AutoPAP therapy or study is indicated please place another order in the EMR and the assigned Respiratory Therapist will reattempt to fulfill orders. Reason for refusal: Thank you for involving Respiratory in the care of this patient, [facility]09-30-2023 NoteCardiothoracic Surgery/CCM Progress Note PATIENT NAME: Robert Lipscomb DATE: 03/23/23 HPI: Mr. Robert Lipscomb is a 67 year old male patient with a PMHx that includes CAD s/p SUZETTE tp RCA (2004), RBBB, HTN, HLD, anemia and diabetes (A1c 7.9). He was referred to CT Surgery by Dr. Armendariz. Patient had underwent coronary cath and was found to have severe multivessel CAD. He was seen in the OP setting by Dr. Childress. He consented and was scheduled for CABG on 03/21/23. Surgery/Procedure: 03/21/23: Dr. Childress- CABGx3 (PIERSON-LAD, SVG-OM, SVG-RPDA), LEVH Interval History: 03/23/23, POD# 02 Pt doing well over night, VSS, no new symptoms, CXR wet labs stable Review of Systems Constitutional: Positive for fatigue. Negative for chills, diaphoresis and fever. Respiratory: Negative for cough, shortness of breath and wheezing. Cardiovascular: Positive for leg swelling. Negative for chest pain and palpitations. Gastrointestinal: Negative for abdominal distention, abdominal pain, nausea and vomiting. Neurological: Negative for dizziness, syncope and light-headedness. Objective: Vitals: BP: 138/55, MAP (mmHg): 77, BP Method: Automatic Heart Rate: 86 Resp: 20 Temp: 37.3 ?C (99.1 ?F), Temp Source: Temporal BMI (Calculated): 44.18 BMP: Recent Labs 03/21/23 1130 03/22/23 0132 03/23/23 0004 NA 141 140 137 K 4.2 4.7 4.2 CL 112* 111* 109* CO2 22 19* 19* BUN 19 20 25* CREATININE 1.29* 1.32* 1.40* CALCIUM 8.1* 8.1* 7.9* MG 3.1* 2.2 2.2 PHOS 3.2 -- -- CBC: Recent Labs 03/21/23 1130 03/21/23 1133 03/22/23 0132 03/23/23 0004 WBC 14.6* -- 12.7* 12.6* HGB 9.4* 10.0 10.4* 9.8* HCT 28.6* -- 31.5* 30.3* PLT 134* -- 163 125* MCV 86.1 -- 85.9 87.1 RDW 13.9 -- 14.1 14.4 INR: Recent Labs 03/21/23 1130 03/22/23 0132 INR 1.4* 1.2* Physical Exam Vitals reviewed. Constitutional: General: He is not in acute distress. Appearance: He is not ill-appearing or diaphoretic. Cardiovascular: Rate and Rhythm: Normal rate and regular rhythm. Pulses: Normal pulses. Pulmonary: Effort: Pulmonary effort is normal. Breath sounds: No wheezing, rhonchi or rales. Comments: Diminished throughout. R>L. On NC. Abdominal: General: There is no distension. Palpations: Abdomen is soft. Tenderness: There is no abdominal tenderness. Musculoskeletal: General: Swelling present. Skin: General: Skin is warm and dry. Capillary Refill: Capillary refill takes less than 2 seconds. Findings: Bruising present. Comments: MSI well approximated. No redness, warmth or drainage noted. Neurological: General: No focal deficit present. Mental Status: He is alert and oriented to person, place, and time. Mental status is at baseline. Psychiatric: Mood and Affect: Mood normal. Behavior: Behavior normal. Thought Content: Thought content normal. Judgment: Judgment normal. Assessment: CAD s/p CABGx3 HTN HLD DM (A1c 7.9) RBBB Post operative Pulm Management: Normal Post-operative Course Post-operative Atrial Fibrillation: []Yes [x] No Acute blood loss anemia/consumptive thrombocytopenia Plan: Patient Status: ICU GDMT for CAD with EF preserved Start aspirin and statin. - start BB today Advance diet DVT prophy. Bowel regimen. Daily labs and chest xray. PRN electrolyte replacement protocols. Chest tubes to water seal once will need one more day DC tomorrow DC chest tubes tomorrow PT/OT: Home With Home health Pulmonary hygiene: IS and Acapella GI prophy: IV protonix DVT prophy:TEDs, SCDs, and Heparin SubQ Disposition: Home with home health this week Central Line: []Yes [x] No Arterial Line: []Yes [x] No Meyer: []Yes [x] No Restraints: []Yes [x] No Patient discussed and plan of day developed from multidisciplinary rounds between Cardiothoracic Surgery (Cardiothoracic Surgeon, MARIANO) and Critical Care Attending Cardiac Core Medications: ASA, Statin, and No BB due to hypotension EF: 55% (03/21/23) Blood Conservation: None noted in post-operative period Blindstitch Hemmer: Dr. Armendariz [facility]09-29-2023 NoteNutrition Assessment Type and Reason for Visit: Initial, Consult, Patient Education (s/p open heart surgery) Nutrition Recommendations/Plan: Continue 5 carb choices (75 g/meal) diet as ordered Per MNT protocol, will order Ensure HP BID to promote postop healing and adequate p.o. intake (160 kcal, 16 g protein, 8 oz each) Provided heart healthy and diabetes diet handouts with [facility] phone number for reference. Will return prior to discharge for detailed instruction (as able) RD will monitor overall nutrition status and follow weekly Malnutrition Assessment: Malnutrition Status: At risk for malnutrition (Comment) (nausea s/p open heart surgery) Nutrition Assessment: Pt with PMH including CAD, drug-eluting stent to the RCA in 2004, RBBB, HTN, hyperlipidemia, anemia, and diabetes (A1C 7.8). Had presentation with mild chest pain prompting and subsequent stress test showed ischemia prompting coronary angiogram . LHC showed MV CAD. Pt presented 03/21 and underwent CABG x3. POD #1. Extubated and diet ordered. Pt is up in chair, ordered a meal, however has not eaten yet. he endorses nausea earlier today which was relieved with anti-emetics. Prior to admission, pt was eating well with stable weight. He endorses prior diabetes diet education and good understanding, denies prior heart healthy diet education and is accepting of diabetes and heart healthy diet handout with [facility] RD phone number, which were provided. Pt is agreeable to ONS Estimated Daily Nutrient Needs: Energy Requirements Based On: Kcal/kg Weight Used for Energy Requirements: Cuney (25-30 kcal/kg) Weight for Energy Calculation (kg): 72.6 kg Total Energy Requirements (kcals/day): 5786-6949 Weight Used for Protein Requirements: Cuney (1.2-1.5 g/kg) Weight in Kg Used for Protein Requirements: 72.6 kg Estimated Total Protein (g/day): 87-109 Estimated Daily Total Fluid (ml/day): or per MD Nutrition Related Findings: Nutrition History: Independent of feeding. Lives with: Spouse/significant other GI symptoms: Nausea (resolved). Elmer Scale Score: 20 .Wound Type: Surgical Incision Net IO Since Admission: 2,493.82 mL [03/22/23 1213] Edema: RUE Edema: Trace, LUE Edema: Trace, RLE Edema: Non-pitting, LLE Edema: Non-pitting Bowel Sounds (All Quadrants): Audible Abdomen Inspection: Soft, Rounded Labs and meds reviewed: acetaminophen, 1,000 mg, Oral, q8h aspirin, 81 mg, Oral, Daily chlorhexidine, 15 mL, Mouth/Throat, BID heparin, 5,000 Units, SubCUTAneous, BID Lidocaine, 1 patch, Topical, Daily mupirocin, , Nasal, BID pantoprazole, 40 mg, IntraVENous, Daily polyethylene glycol (PEG) 3350, 17 g, Oral, Daily rosuvastatin, 20 mg, Oral, Nightly senna-docusate sodium, 2 tablet, Oral, Nightly sodium chloride 0.9%, 10 mL, IntraVENous, 2 times per day vancomycin, 1,500 mg, IntraVENous, q12h insulin regular, 1-50 Units/hr, Last Rate: 3 Units/hr (03/22/23 1041) lactated ringers, 250 mL, Last Rate: Stopped (03/21/23 2226) norepinephrine, 0.01-3.3 mcg/kg/min, Last Rate: 0.02 mcg/kg/min (03/22/23 0330) sodium chloride, 20 mL/hr, Last Rate: 20 mL/hr (03/21/23 1444) BMP: Recent Labs 03/21/23 1130 03/22/23 0132 NA 141 140 K 4.2 4.7 CL 112* 111* CO2 22 19* BUN 19 20 CREATININE 1.29* 1.32* GLUCOSE 155* 142* CALCIUM 8.1* 8.1* MG 3.1* 2.2 PHOS 3.2 -- Recent Labs 03/22/23 0504 03/22/23 0601 03/22/23 0709 03/22/23 0805 03/22/23 0931 03/22/23 1034 POCGLU 139* 133* 128* 119* 108* 111* Lab Results Component Value Date HGBA1C 7.9 (H) 03/11/2023 Lab Results Component Value Date LVEFPHYS 55 03/21/2023 Current Nutrition Therapies: Adult diet Regular; 5 carb choices (75 gm/meal) Current Oral Intake Average Meal Intake: Unable to assess (nothing yet) Average Supplements Intake: None Ordered Anthropometric Measures: Height: 175.3 cm (5' 9) Current Body Weight: 134 kg (295 lb 6.7 oz) (03/22) Admission Body Weight: 136 kg (300 lb) (stated) Cuney Body Weight (lbs) (Calculated): 160 lbs Cuney Body Weight (Kg) (Calculated): 73 kg % [place]uney Body Weight (Calculated): 184.6 % BMI (kg/m2) (Calculated): 43.6 BMI Categories: Obese Class 3 (BMI 40.0 or greater) Wt Readings from Last 10 Encounters: 03/22/23 134 kg (295 lb 6.7 oz) 03/11/23 135 kg (298 lb 8 oz) 02/27/23 135 kg (298 lb 6.4 oz) Nutrition Diagnosis: Increased nutrient needs related to increase demand for energy/nutrients as evidenced by wounds (sugical) Nutrition Interventions: Food and/or Nutrient Delivery: Continue Current Diet, Start Oral Nutrition Supplement Nutrition Education/Counseling: Education needed, Education initiated Coordination of Nutrition Care: Continue to monitor while inpatient Goals: Goals: PO intake 75% or greater, prior to discharge Nutrition Monitoring and Evaluation: Behavioral-Environmental Outcomes: Knowledge or Skill Food/Nutrient Intake Outcomes: Food and Nutrient Intake, Supplement Intake (more content not included)...[facility]09-28-2023 NotePatient: Shane Lipscomb Procedure Summary Date: 03/21/23 Room / Location: [address] Operating Room Anesthesia Start: 728 Anesthesia Stop: 1224 Procedures: CORONARY ARTERY BYPASS GRAFT, TRANSESOPHAGEAL ECHOCARDIOGRAM (Chest) Echocardiography transesophageal real-time Diagnosis: Atherosclerotic heart disease of [place] coronary artery without angina pectoris (Atherosclerotic heart disease of [place] coronary artery without angina pectoris [I25.10]) Surgeons: Donya Childress MD Responsible Provider: José Carnes MD Anesthesia Type: general ASA Status: 4 Anesthesia Type: general Vitals Value Taken Time BP 104/31 03/21/23 1225 Temp 36.5 c 03/21/23 1225 Pulse 82 03/21/23 1224 Resp 17 03/21/23 1224 SpO2 100 % 03/21/23 1224 Vitals shown include unfiled device data. Anesthesia Post Evaluation Patient location during evaluation: ICU Patient participation: complete - patient cannot participate Level of consciousness: intubated and sedated Pain management: adequate Airway patency: patent Dental Injury: no Cardiovascular status: acceptable and hemodynamically stable Respiratory status: acceptable, ETT, intubated and ventilator Hydration status: acceptable Nausea/Vomiting: controlled 0.4 mcg/kg/min norepinephrine initiated on arrival to ICU All gtts reviewed Pt stable, RT/RN at bedside No notable events documented. Patient can be discharged once all PACU criteria has been met.[facility] [id number] NotePatient: Shane Lipscomb Procedure Summary Date: 03/21/23 Room / Location: [address] Operating Room Anesthesia Start: 07 Anesthesia Stop: 122 Procedures: CORONARY ARTERY BYPASS GRAFT, TRANSESOPHAGEAL ECHOCARDIOGRAM (Chest) Echocardiography transesophageal real-time Diagnosis: Atherosclerotic heart disease of [place] coronary artery without angina pectoris (Atherosclerotic heart disease of [place] coronary artery without angina pectoris [I25.10]) Surgeons: Donya Childress MD Responsible Provider: José Carnes MD Anesthesia Type: general ASA Status: 4 Anesthesia Type: general Vitals Value Taken Time BP 102/31 (arterial) 03/21/23 1224 Temp 36.5 c 03/21/23 1224 Pulse 84 03/21/23 1222 Resp 14 03/21/23 1222 SpO2 100 % 03/21/23 1222 Vitals shown include unfiled device data. NC Anesthesia Post Evaluation Patient location during evaluation: ICU Patient participation: complete - patient cannot participate Post-procedure mental status: sedated/intubated. Pain score: 0 Pain management: adequate Multimodal analgesia pain management approach Airway patency: patent Two or more strategies used to mitigate risk of obstructive sleep apnea Cardiovascular status: hemodynamically stable Respiratory status: acceptable, intubated, ventilator and ETT Hydration status: acceptable No notable events documented. MIPS #430 PONV Patient received an inhalational anesthetic (4554F) Patient exhibits three or more risk factors for PONV (4556F) Patient received at leaset 2 prophylactic Rx PONV anti-emtic agents of different classes preop and/or intraop (G9775) MIPS # 424 Perioperative Temperature Management Anesthesia time was 60 minutes or longer (4255F) Anesthesai administered was General (inhalational or TIVA) or Neuraxial block (X0424) At least one body temperature greater than 95.8F/35.5C achieved within the 30 mins immediately prior to or the 15 minutes immediately following anesthesia end time (G9771) MIPS #477 Multimodal Pain Management Emergent case Exlusion- Stop here (M1142) MIPS #404 Anesthesiology Smoking Abstinence The patient is not a current smoker (e.g. cigarette, cigar, pipe, e-cigarette/vaping/marijuana) If no stop here (G9644) I completed my handoff to the receiving clinician during which we: 1. Identified the patient 2. Identified the responsible provider 3. Reviewed the pertinent medical history 4. Discussed the surgical course 5. Reviewed intra-op anesthesia management and issues during anesthesia 6. Set expectations for post-procedure period 7. Allowed opportunity for questions and acknowledgement of understanding.[facility]09-28-2023 Evaluation note* Diagnosis Onset Date Resolution Status Essential (primary) hypertension chronic Hyperlipidemia chronic History of coronary artery stent placement 2004 resolved History of coronary artery bypass surgery March 212022 acute Essential (primary) hypertension chronic Hyperlipidemia chronic History of coronary artery stent placement 2004 resolved [facility] Work Phone: 1(261) 539-440909-28-2023 Evaluation note* Diagnosis Onset Date Resolution Status History of coronary artery bypass surgery March 212022 acute Essential (primary) hypertension chronic Hyperlipidemia chronic History of coronary artery stent placement 2004 resolved [facility] Work Phone: 1(762) 397-284409-28-2023 Evaluation note* Diagnosis Onset Date Resolution Status Essential (primary) hypertension chronic History of coronary artery bypass surgery March 212022 chronic History of coronary artery stent placement 2004 chronic Hyperlipidemia chronic Essential (primary) hypertension chronic History of coronary artery bypass surgery March 212022 chronic History of coronary artery stent placement 2004 chronic Hyperlipidemia chronic [facility] Work Phone: 1(884) 954-944509-28-2023 Evaluation note* Diagnosis Onset Date Resolution Status Essential (primary) hypertension chronic History of coronary artery bypass surgery March 212022 chronic History of coronary artery stent placement 2004 chronic Hyperlipidemia chronic Diabetes chronic Essential (primary) hypertension chronic Hyperlipidemia chronic Obesity [facility] Work Phone: 1(861) 340-534609-28-2023 Evaluation note* Diagnosis Onset Date Resolution Status Essential (primary) hypertension chronic History of coronary artery bypass surgery March 212022 chronic History of coronary artery stent placement 2004 chronic Hyperlipidemia chronic Diabetes chronic Essential (primary) hypertension chronic Hyperlipidemia chronic Obesity chronic Diabetes chronic Hyperlipidemia chronic Obesity [facility] Work Phone: 1(411) 393-490009-28-2023 NoteArterial Line: Date/Time: 03/21/2023 7:43 AM An arterial line was placed Procedure performed using ultrasound guidance - Image permanently retained with wire or catheter in vein.in the Procedural for the following indication(s): continuous blood pressure monitoring and blood sampling needed. A 20 gauge (size), 1 and 3/4 inch (length), Arrow (type) catheter was placed, into the Left radial artery, secured by Tegaderm and tape. Events: patient tolerated procedure well with no complications. Additional notes: X1 attempt - under ultrasound guidance Staffing Performed: MANAGER INTENSIVE CARE Resident/MANAGER INTENSIVE CARE: Liseth Rahman APRN - MANAGER INTENSIVE CARE Performed by: Liseth Rahman APRN - MANAGER INTENSIVE CARE Authorized by: Liseth Rahman APRN - [facility] [id number] NoteCentral Venous Line: Date/Time: 03/21/2023 7:55 AM A central venous line was placed in the Procedural for the following indication(s): central venous access and CVP monitoring. Medical reason for not performing maximal sterile barrier technique: no The patient was placed in Trendelenburg position. Right internal jugular vein was prepped. The site was prepped with Chlorhexidine. Catheter size: 8.5 Fr. Catheter type: introducer Number of Lumens: single lumen During the procedure, the following specific steps were taken: target vein identified, needle advanced into vein and blood aspirated and guidewire advanced into vein. Procedure performed using ultrasound guidance - Image permanently retained with wire or catheter in vein. Sterile gel and probe cover used in ultrasound-guided central venous catheter insertion. Intravenous verification was obtained by ultrasound, venous blood return and manometry. Post insertion care included: all ports aspirated, all ports flushed easily, guidewire removed intact, Biopatch applied, line sutured in place and dressing applied. During the procedure the patient experienced: patient tolerated procedure well with no complications. Staffing Performed: anesthesiologist Anesthesiologist: José Carnes MD Performed by: MARCK Solomon CRNA Authorized by: MARCK Solomon CRNAM[facility]son [facility] Center09-28-2023 NoteAirway Date/Time: 03/21/2023 7:48 AM Urgency: scheduled Airway not difficult General Information and Staff Patient location during procedure: Procedural Resident/MANAGER INTENSIVE CARE: MARCK Solomon CRNA Performed: MANAGER INTENSIVE CARE Performed by: MARCK Solomon CRNA Authorized by: MARCK Solomon CRNA Indications and Patient Condition Indications for airway management: anesthesia and airway protection Sedation level: Asleep Preoxygenated: yes Patient position: sniffing MILS maintained throughout Mask difficulty assessment: 2 - vent by mask + OA or adjuvant +/- NMBA Final Airway Details Final airway type: endotracheal airway Successful airway: ETT Cuffed: yes Successful intubation technique: direct laryngoscopy Facilitating devices/methods: intubating stylet Endotracheal tube insertion site: oral Blade: Bassem Blade size: #4 ETT size (mm): 8.0 Cormack-Lehane Classification: grade I - full view of glottis Placement verified by: chest auscultation and capnometry Measured from: lips ETT to lips (cm): 23 Number of attempts at approach: [address] [place], [place] [address]532509-28-2023 NoteDATE OF PROCEDURE: 03/21/2023 PREOPERATIVE DIAGNOSIS: Coronary artery disease POSTOPERATIVE DIAGNOSIS: Coronary artery disease PROCEDURE: 1. Coronary artery bypass grafting x 3 - Left internal mammary artery to the left anterior descending - Saphenous vein graft to the obtuse marginal - Saphenous vein graft to the right posterior descending artery 2. Endoscopic vein harvest, left lower extremity SURGEON: Donya Childress MD SOCIAL SCIENCES CHAIR: DIMA Randall COMPLICATIONS: None intra-op CONDITION: Stable IMPLANTS: 1 thorecon Auxillary plate in manubrium 1 X plate 1 box plate 16 14 mm screws DESCRIPTION OF PROCEDURE: The patient was prepped and draped in the appropriate manner, having undergone general endotracheal anesthetic in addition to [place] catheter placement, arterial line, and meyer catheter placement. An antibiotic and a beta sherwin were administered pre-operatively and documented. Incision and conduit harvest/preparation: A midline sternotomy incision was utilized in standard fashion. The sternum was divided with the oscillating saw. The left internal mammary artery was taken down with clips and bovie cauterization. Papaverine was used. The left lower extremity saphenous vein was harvested via the endoscopic approach. The patient was fully heparinized prior to dividing and prepping the mammary. Cannulation and cardiopulmonary bypass: After cannulation, the patient was placed on cardiopulmonary bypass support. Ascending aortic cross-clamp was applied. Antegrade cardioplegia (microplegia) was delivered till the heart was arrested in diastole. Cardioplegia was re-administered every 20 minutes while the ascending aorta was cross clamped. Aortic canula: 24 Fr soft flow angled cannula in distal ascending aorta Venous canula: 29/29 Fr triple stage cannula via right atrial appendage Cardioplegia: Antegrade via cannula in the mid ascending aorta. Coronary artery bypass: Bypasses were performed using the respective conduits listed above to the [place] arterial targets with 7-0 Prolene distally and 6-0 Prolene proximally to the ascending aorta. The left internal mammary artery was anastomosed to the LAD with 7-0 Prolene. CPB wean and decannulation: The patient was given a dose of warm blood cardioplegia. Valsalva breaths were mechanically administered and the aorta was unclamped. Pacing wire was not placed. The patient was rewarmed and weaned from cardiopulmonary bypass support without difficulty. Protamine was administered and cannulas were removed without difficulty. Two 24 Fr aris drains were placed, one in the left pleural space and one in the mediastinum. Closure: Hemostasis was achieved. The sternum was closed with sternalock XP plating system. The incision was closed in layers with running 0, 2-0 and 4-0 stitches. Dressings applied, and the patient was transferred to the cardiovascular intensive care unit in stable condition. Cardiopulmonary bypass time: 69 minutes Cross clamp time: 61 minutes Intra-op ELIAN: Normal EF Donya Childress [facility]09-28-2023 NoteH&P reviewed. The patient was examined and there are no changes to the H&P.[facility] 03-21-2023 History and physical note* Donya Childress MD - 03/21/2023 6:49 AM EDT H&P reviewed. The patient was examined and there are no changes to the H&P. Source Note - Donya Childress MD - 02/27/2023 10:30 AM EDT Images from the original note were not included. [facility] [address] [facility] [address] Dept: [phone] Dept Loc: [phone] Visit type: New Reason for Visit: Coronary artery disease Assessment and plan 67-year-old male with multivessel coronary artery disease. Coronary artery disease: I discussed with him and his the indications, risks, benefits, and perioperative course of a coronary artery bypass grafting. I discussed alternatives including no intervention, medical therapy only, and percutaneous coronary intervention with medications. A surgical re vascularization is recommended in his case. On my review of the coronary angiogram, he does have good targets and will need 3 vessel bypass grafts. He is quite functional and is of low risk. He is agreeable. For work-up completion, I have ordered an echocardiogram, CT chest without contrast, and lower extremity vein mapping. The risks of the procedure/s include but are not limited to, bleeding, infection, pneumonia, respiratory failure, prolonged Intensive Care Unit stay, multiorgan failure, renal failure needing temporary and/or permanent dialysis, cerebrovascular accident, pulmonary embolism, deep venous thrombosis, cardiac failure or ischemia or arrhythmia, and . Donya Childress MD Cardiothoracic Surgery History of Present Illness Robert Lipscomb is a 67 y.o. male referred by Dr. Armendariz for CABG. Per notes, patient has a PMH of CAD, drug-eluting stent to the RCA in 2004, RBBB, HTN, hyperlipidemia, anemia, and diabetes (A1C 7.8). With his history he underwent a heart cath that showed 0% calcified ostial LAD; 50-60% Mid LAD 80% Mid RCA 60% Prox OM2; 90% ostial late OM2 (small 1.5 mm vessel) with the recommendations for surgery coronary revascularization. He had mild chest pain prompting presentation. Stress test showed ischemia prompting coronary angiogram which showed the above. I have reviewed the images and my interpretation as above. He had extensive abdominal surgery in the that included a right diaphragmatic repair. Patient is here today for an evaluation. Past Medical History Coronary artery disease History of testicular cancer in the 1980s Past Surgical History Laparotomy Hernia repair Diaphragmatic repair Family History None contributory Social History Social History Tobacco Use Smoking status: Never Smokeless tobacco: Never Substance Use Topics Alcohol use: Not Currently Drug use: Never Allergies Allergies Allergen Reactions Amoxicillin Amoxicillin-Pot Clavulanate Atorvastatin Other Metformin Hcl Other Other pollen causes redness of eyes Pollen Extract Cough Clavulanic Acid Rash Metformin Diarrhea and Rash Medications Current Outpatient Medications: amLODIPine (Norvasc) 5 MG tablet, , Disp: , Rfl: Apoaequorin (Prevagen) 10 MG capsule, , Disp: , Rfl: aspirin 81 MG oral suspension, , Disp: , Rfl: atenolol (Tenormin) 50 MG tablet, , Disp: , Rfl: enalapril (Vasotec) 20 MG tablet, , Disp: , Rfl: insulin glargine (Lantus SoloStar) 100 UNIT/ML pen, , Disp: , Rfl: liraglutide (Victoza) 18 MG/3ML injection, , Disp: , Rfl: Multiple Vitamins-Minerals (Centrum Silver 50+Men) tablet, , Disp: , Rfl: nitroglycerin (Nitrostat) 0.4 MG SL tablet, Place 0.4 mg under the tongue every 5 minutes as neededfor chest pain., Disp: , Rfl: repaglinide (Prandin) 2 MG tablet, , Disp: , Rfl: rosuvastatin (Crestor) 20 MG tablet, , Disp: , Rfl: Review of Systems Review of Systems All other systems reviewed and are negative. Physical Exam Vitals: BP (!) 158/76 (BP Location: Left arm, Patient Position: Sitting, BP Cuff Size: Large adult) Temp 36.2 C (97.1 F) Ht 5' 9 (1.753 m) Wt 298 lb 6.4 oz (135 kg) BMI 44.07 kg/m Constitutional: General: Not in acute distress. Appearance: Normal appearance. Not toxic-appearing. Ear, nose, mouth: Bilateral external ear and nose normal. Nose: Nose normal. Mouth: Appearance normal, no bleeding, moist mucus membranes Eyes: General: No scleral icterus. No discharge from bilateral eyes Extraocular Movements: Extraocular movements intact. Pupils equal and reactive bilaterally Cardiovascular: Heart: Regular rhythm. Normal heart sounds. Vascular: No carotid bruit. Edema: No edema in bilateral lower extremities Pulmonary: Effort: Pulmonary effort is normal. No respiratory distress. Breath sounds: Normal breath sounds. No wheezing. Chest wall: No tenderness. Abdominal: Palpations: There is no abdominal tenderness, no guarding. Musculoskeletal: Bilateral upper and lower extremities: Normal range of motion, no deformity Head: Normocephalic and atraumatic. Neck: Normal range of motion and neck supple. No muscular tenderness. Lymphadenopathy: Cervical: No cervical adenopathy. Skin: General: Skin is warm and dry. Coloration: Skin is not jaundiced. Neurological: General: No focal deficit present. Cranial Nerves: No obvious cranial nerve deficit. Psychiatric: Mood and Affect: Mood normal. Thought Content: Thought content normal. Patient has good judgement and insight Mental Status: Alert and oriented to place, person, and time. Labs No results found for: WBC, HGB, PLT, NA, K, CREATININE Imaging Cardiac Cath 02/12/23 CONCLUSIONS 80% calcified ostial LAD; 50-60% Mid LAD 80% Mid RCA 60% Prox OM2; 90% ostial late OM2 (small 1.5 mm vessel) RECOMMENDATIONS Surgery consult for coronary revascularization CORONARY ANGIOGRAPHY DOMINANCE: Right Dominant LEFT ANTERIOR DESCENDING ARTERY: LAD: Calcified 80% Ostial lesion in LAD Calcified 60% Mid lesion in LAD OM 2: Tubular 60% Proximal lesion in 2nd OM RIGHT CORONARY ARTERY: RCA: Calcified 80% Mid lesion in RCA RPLS: In-Stent Restenosis 50% Ostial lesion in RPL1 Chest XRAY 02/08/23 FINDINGS: LINES/DEVICES: None. LUNGS: Significant asymmetric elevation right hemidiaphragm unchanged compared to prior exam. There is no significant overlying atelectasis. Lungs are otherwise clear. MEDIASTINUM AND CARDIOVASCULAR STRUCTURES: Normal size and contour of the cardiomediastinal silhouette. No evidence of pulmonary vascular congestion. BONES AND SOFT TISSUES: No fracture or focal osseous lesion. Extensive surgical clips anterior to the proximal lumbar spine. IMPRESSION: 1. Significant asymmetric elevation right hemidiaphragm unchanged. 2. No acute cardiopulmonary disease. 3. Numerous surgical clips anterior to the proximal lumbar spine. Stress test 01/25/23 67-year-old man with a history of chest pain Stress protocol: Resting EKG demonstrates sinus rhythm with a rate of 67 bpm resting blood pressure is 138/70 mmHg. right bundle branch block is noted. The patient exercised according to the regular Boo protocol for a total duration of 6 minutes attaining a maximum heart rate of 129 bpm which was 85% of maximum predicted heart rate; the maximum workload was 7 metabolic equivalents. At rest there were no ST or T wave changes noted to suggest ischemia and at peak exercise upsloping ST changes only were noted which did not meet the criteria for ischemia. No clinical angina was noted the test was terminated due to the target heart rate being achieved/fatigue. The peak blood pressure was 184/72 mmHg. Rate-pressure product was 23,700. Myocardial perfusion protocol. 15 mCi of technetium 99m sestamibi was injected at rest. The patient exercised according to regular Boo protocol for total duration of 6 minutes and at peak exercise 44.8 mCi of technetium 99m sestamibi was injected stress images were obtained stress and rest images were reconstructed in comparing the short axis vertical long and horizontal long axis. Gated images were also obtained. Perfusion SPECT analysis: Review of the stress images demonstrate normal uptake of tracer noted in all areas of the myocardium except for small portion of the inferolateral wall with reduced perfusion. The resting images demonstrate normal uptake of tracer noted in all areas of the myocardium. The above is suggestive of mild ischemia noted in the inferolateral wall. Gated SPECT analysis: The gated ejection fraction is 58%. Conclusion: Mildly abnormal exercise myocardial perfusion stress test at a moderate workload Mild inferolateral ischemia Preserved ejection fraction. Patient Care Team: PCP: Temo Rodriguez MD Cardiology: Dr. Melita Armendariz Disclaimer INFORMED CONSENT:The nature and purpose of the proposed treatment or procedure have been discussed.The risks and benefits of the proposed treatment or procedures have been reviewed. Alternatives have been reviewed in addition to the risks and benefits of not receiving treatments or undergoing procedures. Pursuant to this discussion, the patient agrees to undergo the proposed treatment or procedure. Captured images seen in this note from are not a substitute for a comprehensive interpretation of the entire data set as reflected by the interpreting physician with regard to radiology, echocardiography, and other diagnostic images. This note may have been dictated using Dragon Medical Practice Edition 2.6 and/or [email or web address] Voice Recognition Feature. The document was proofread, however unrecognized voice recognition netezza architect errors may be present. documented in this [facility]09-18-2023 NotePatient: Shane Lipscomb Procedure Information Date/Time: 03/21/23 0700 Procedures: CORONARY ARTERY BYPASS GRAFT, TRANSESOPHAGEAL ECHOCARDIOGRAM (Chest) Echocardiography transesophageal real-time Location: [facility] Operating Room Surgeons: Donya Childress MD Past Medical History: Past Medical History: No date: Anemia No date: Arthritis No date: Coronary artery disease No date: DM (diabetes mellitus) (HCC) No date: History of transfusion No date: HTN (hypertension) No date: Hyperlipidemia No date: RBBB No date: Testicular cancer (HCC) Past Surgical History: Past Surgical History: No date: ADENOIDECTOMY No date: APPENDECTOMY No date: COLONOSCOPY 2004: CORONARY STENT PLACEMENT No date: LAP,INGUINAL HERNIA REPR,INITIAL (HISTORICAL) No date: TONSILLECTOMY Social History: TOBACCO: reports that he has never smoked. He has never used smokeless tobacco. ETOH: reports that he does not currently use alcohol. Social History Substance and Sexual Activity Drug Use Never Family History: No family history on file. Screening: unknown Clinical information reviewed: Tobacco Allergies Meds Med Hx Surg Hx Fam Hx Physical Exam Airway Mallampati: III TM distance: >3 FB Neck ROM: full Comments: Thick neck Mouth Open: normal Cardiovascular Dental (+) Missing Comments: Nothing loose or removable dentition normal Pulmonary Abdominal Other findings: Patient has a cap in back Anesthesia Plan patient is NPO appropriate Any family history or previous problems with anesthesia no ASA 4 general Any family history or previous problems with anesthesia no The patient is not a current smoker. Anesthetic plan and risks discussed with patient, spouse and legal guardian. Anesthesia Shah Considerations See Cath Report and Echo from [facility] in MEDIA tab EF 60% Multivessel CAD including 80% LAD and RCA No hx of Esophageal obstruction or diff swallowing Explained GA, ETT, ELIAN & PA catheter as well as post op ventilation and questions answered. Blood Glucose Insulin Sliding Scale: high ERAS Type No ERAS Xanax ordered preop DANISHA Screening STOP-Bang Total Score: 5 Referral entered Labs: No results found for: WBC, HGB, HCT, MCV, PLT No results found for: NA, K, CL, CO2, BUN, CREATININE, GLUCOSE, CALCIUM, PROT, BILIRUBINFL, ALKPHOS, AST, ALT, EGFR, GLOB No echocardiogram results found for the past 14 days No results found for this or any previous visit.[facility] 03-11-2023 NoteComprehensive Pre Surgical History and Physical ? Name: Robert Lipscomb : 1955 (Age-67 y.o.) Date of Service: Pt seen/examined on 03/11/2023 ASSESSMENT/PLAN: Patient is considered high risk for this high risk procedure/surgery () #) Atherosclerotic heart disease of [place] coronary artery without angina pectoris [I25.10] Deferred to surgeon S/p drug-eluting stent to the RCA in 2004 Managed on asa, statin, BB, MARLENI CMP, CBC, PT PTT, UA, T&C, MRSA, A1c, EKG, CXR ordered according to PAT protocol Antiplatelets / anticoagulation per CTS #) HTN Amlodipine 5mg PO daily, enalapril 20mg PO daily BP Readings from Last 3 Encounters: 03/11/23 (!) 145/60 02/27/23 (!) 158/76 #) T2IDDM BG at home, mostly low. 100s-150s Drops to 60s at night Managed by PCP patient reports compliance to medications Diabetic medications per PAT protocol. per anesthesia protocol, BS must be below 250 DOS No meds DOS per CTS. Pt takes AM lantus #) Morbid Obesity Body mass index is 44.08 kg/m?. #) STOP BANG + Referral entered Chief Complaint: CAD History Of Present Illness: 67 y.o. male who we are asked to see/evaluate by [facility] PAT 04 for pre-operative evaluation prior to . Procedure Information Date/Time: 03/21/23 0700 Procedures: CORONARY ARTERY BYPASS GRAFT, TRANSESOPHAGEAL ECHOCARDIOGRAM (Chest) Echocardiography transesophageal real-time Location: [place] [address] / [facility] Operating Room Surgeons: Donya Childress MD Had heart attack in 2004, s/p stenting Developed right sided chest pain and discomfort in December 2022 which was similar to his chest pain at that time Presented to [facility] and has subsequent abnormal stress test and cardiac cath Proceeding with above procedure Cardiac Cath 02/12/23 CONCLUSIONS 80% calcified ostial LAD; 50-60% Mid LAD 80% Mid RCA 60% Prox OM2; 90% ostial late OM2 (small 1.5 mm vessel) RECOMMENDATIONS Surgery consult for coronary revascularization CORONARY ANGIOGRAPHY DOMINANCE: Right Dominant LEFT ANTERIOR DESCENDING ARTERY: LAD: Calcified 80% Ostial lesion in LAD Calcified 60% Mid lesion in LAD OM 2: Tubular 60% Proximal lesion in 2nd OM RIGHT CORONARY ARTERY: RCA: Calcified 80% Mid lesion in RCA RPLS: In-Stent Restenosis 50% Ostial lesion in RPL1 Denies pain, f/c, sob, n/v/d Deniesasthma, COPD, sleep apnea, tobacco abuse;thyroid disease; bleeding disorders, hematological disorders, cancer, Dvt / PE; seizures, strokes; liver disease, or alcohol abuse. No problems with anesthesia >4 mets Past Medical History: Past Medical History: No date: Anemia No date: Arthritis No date: Coronary artery disease No date: DM (diabetes mellitus) (HCC) No date: History of transfusion No date: HTN (hypertension) No date: Hyperlipidemia No date: RBBB No date: Testicular cancer (HCC) Past Surgical History: Past Surgical History: No date: ADENOIDECTOMY No date: APPENDECTOMY No date: COLONOSCOPY 2004: CORONARY STENT PLACEMENT No date: LAP,INGUINAL HERNIA REPR,INITIAL (HISTORICAL) No date: TONSILLECTOMY Medications Prior to Admission: Prior to Admission medications Medication Sig Start Date End Date Taking? Authorizing Provider amLODIPine (Norvasc) 5 MG tablet 02/13/23 Historical Provider, Apoaequorin (Prevagen) 10 MG capsule Historical Provider, aspirin 81 MG oral suspension Historical Provider, atenolol (Tenormin) 50 MG tablet Historical Provider, enalapril (Vasotec) 20 MG tablet Historical Provider, insulin glargine (Lantus SoloStar) 100 UNIT/ML pen Historical Provider, liraglutide (Victoza) 18 MG/3ML injection Historical Provider, Multiple Vitamins-Minerals (Centrum Silver 50+Men) tablet Historical Provider, mupirocin (Bactroban) 2 % ointment Apply liberal amount per nostril the night before surgery and then again the morning of surgery 02/28/23 Jonathan De Leon APRN - EDDY nitroglycerin (Nitrostat) 0.[address] 0.4 mg under the tongue every 5 minutes as needed for chest pain. Historical Provider, repaglinide (Prandin) 2 MG tablet Historical Provider, rosuvastatin (Crestor) 20 MG tablet Historical Provider, CHRONIC NARCOTIC USE: No Allergies: Amoxicillin, Amoxicillin-pot clavulanate, Atorvastatin, Metformin hcl, Other, Pollen extract, Clavulanic acid, and Metformin Can pt take Acetaminophen: Yes Social History: TOBACCO: reports that he has never smoked. He has never used smokeless tobacco. ETOH: reports that he does not currently use alcohol. Social History Substance and Sexual Activity Drug Use Never Family History: No family history on file. REVIEW OF SYSTEMS: Pertinent positives as noted in the HPI. All other systems reviewed and negative. (more content not included)...[facility] 03-08-2023 Telephone encounter Note* Telephone Encounter - Malini Kohler RN - 03/08/2023 2:12 PM EDT Pre op teaching done with patient. Instructed to hold NSAIDS except Aspirin 7 days prior to surgery, and not to take any medications day of surgery. Pharmacy confirmed. All questions answered. [id number] Miscellaneous Notes* Telephone Encounter - Malini Kohler RN - 03/08/2023 2:12 PM EDT Pre op teaching done with patient. Instructed to hold NSAIDS except Aspirin 7 days prior to surgery, and not to take any medications day of surgery. Pharmacy confirmed. All questions answered. documented in this [facility]09-07-2023 Telephone encounter Note* Telephone Encounter - MARCK Ramirez CNP - 02/28/2023 8:46 AM EDT Completed [id number] Miscellaneous Notes* Telephone Encounter - MARCK Ramirez CNP - 02/28/2023 8:46 AM EDT Completed * Telephone Encounter - Rosmery Bob MA - 02/27/2023 1:37 PM EDT Prep for Procedure Order Request: 02/27/23 Surgeon:Gregg Surgery/Procedure: CABG,ELIAN Diagnosis: I25.10 Plan Admit: yes PAT Appointment: Yes Date if yes: 03/11/23 @ 3pm Date of Surgery/Procedure: 03/21/23 7 am Medication needed held: [] None [x] Other: Medication needed prescribed: [] None [x] Nasal ointment and mouth rinse [] Other: documented in this [facility]09-06-2023 NotePrep for Procedure Order Request: 02/27/23 Surgeon:Gregg Surgery/Procedure: CABG,ELIAN Diagnosis: I25.10 Plan Admit: yes PAT Appointment: Yes Date if yes: 03/11/23 @ 3pm Date of Surgery/Procedure: 03/21/23 7 am Medication needed held: [] None [x] Other: Medication needed prescribed: [] None [x] Nasal ointment and mouth rinse [] Other: [facility]09-06-2023 NoteOrders Placed This Encounter Procedures CT chest wo IV contrast Standing Status: Future Standing Expiration Date: 02/28/2024 Order Specific Question: Record Decision Support information? Answer: No Order Specific Question: Decision Support Exception Answer: Emergency Medical Condition (MA) [1] Order Specific Question: What is the patient's sedation requirement? Answer: No Sedation Transthoracic echocardiogram (TTE) complete with contrast, bubble, strain, and 3D PRN Standing Status: Future Standing Expiration Date: 02/27/2025 Order Specific Question: Contrast Enhancement (Bubble Study, Definity, Optison) may be used if criteria listed in established evidence-based protocol has been identified. Answer: Contrast and bubble study per evidence based protocol Vascular US lower extremity vein mapping for bypass bilateral Standing Status: Future Standing Expiration Date: 02/27/2025[facility]09-06-2023 Telephone encounter Note* Telephone Encounter - Rosmery Bob MA - 02/27/2023 1:37 PM EDT Prep for Procedure Order Request: 02/27/23 Surgeon:Gregg Surgery/Procedure: CABG,ELIAN Diagnosis: I25.10 Plan Admit: yes PAT Appointment: Yes Date if yes: 03/11/23 @ 3pm Date of Surgery/Procedure: 03/21/23 7 am Medication needed held: [] None [x] Other: Medication needed prescribed: [] None [x] Nasal ointment and mouth rinse [] Other: [id number] CARDIOVASCULAR & THORACIC SURGERY [address] [facility] [address] Dept: [phone] Dept Loc: [phone] Visit type: New Reason for Visit: Coronary artery disease Assessment and plan 67-year-old male with multivessel coronary artery disease. Coronary artery disease: I discussed with him and his the indications, risks, benefits, and perioperative course of a coronary artery bypass grafting. I discussed alternatives including no intervention, medical therapy only, and percutaneous coronary intervention with medications. A surgical revascularization is recommended in his case. On my review of the coronary angiogram, he does have good targets and will need 3 vessel bypass grafts. He is quite functional and is of low risk. He is agreeable. For work-up completion, I have ordered an echocardiogram, CT chest without contrast, and lower extremity vein mapping. The risks of the procedure/s include but are not limited to, bleeding, infection, pneumonia, respiratory failure, prolonged Intensive Care Unit stay, multiorgan failure, renal failure needing temporary and/or permanent dialysis, cerebrovascular accident, pulmonary embolism, deep venous thrombosis, cardiac failure or ischemia or arrhythmia, and . Donya Childress MD Cardiothoracic Surgery History of Present Illness Robert Lipscomb is a 67 y.o. male referred by Dr. Armendariz for CABG. Per notes, patient has a PMH of CAD, drug-eluting stent to the RCA in 2004, RBBB, HTN, hyperlipidemia, anemia, and diabetes (A1C 7.8). With his history he underwent a heart cath that showed 0% calcified ostial LAD; 50-60% Mid LAD 80% Mid RCA 60% Prox OM2; 90% ostial late OM2 (small 1.5 mm vessel) with the recommendations for surgery coronary revascularization. He had mild chest pain prompting presentation. Stress test showed ischemia prompting coronary angiogram which showed the above. I have reviewed the images and my interpretation as above. He had extensive abdominal surgery in the that included a right diaphragmatic repair. Patient is here today for an evaluation. Past Medical History Coronary artery disease History of testicular cancer in the 1980s Past Surgical History Laparotomy Hernia repair Diaphragmatic repair Family History None contributory Social History Social History Tobacco Use Smoking status: Never Smokeless tobacco: Never Substance Use Topics Alcohol use: Not Currently Drug use: Never Allergies Allergies Allergen Reactions Amoxicillin Amoxicillin-Pot Clavulanate Atorvastatin Other Metformin Hcl Other Other pollen causes redness of eyes Pollen Extract Cough Clavulanic Acid Rash Metformin Diarrhea and Rash Medications Current Outpatient Medications: amLODIPine (Norvasc) 5 MG tablet, , Disp: , Rfl: Apoaequorin (Prevagen) 10 MG capsule, , Disp: , Rfl: aspirin 81 MG oral suspension, , Disp: , Rfl: atenolol (Tenormin) 50 MG tablet, , Disp: , Rfl: enalapril (Vasotec) 20 MG tablet, , Disp: , Rfl: insulin glargine (Lantus SoloStar) 100 UNIT/ML pen, , Disp: , Rfl: liraglutide (Victoza) 18 MG/3ML injection, , Disp: , Rfl: Multiple Vitamins-Minerals (Centrum Silver 50+Men) tablet, , Disp: , Rfl: nitroglycerin (Nitrostat) 0.4 MG SL tablet, Place 0.4 mg under the tongue every 5 minutes as needed for chest pain., Disp: , Rfl: repaglinide (Prandin) 2 MG tablet, , Disp: , Rfl: rosuvastatin (Crestor) 20 MG tablet, , Disp: , Rfl: Review of Systems Review of Systems All other systems reviewed and are negative. Physical Exam Vitals: BP (!) 158/76 (BP Location: Left arm, Patient Position: Sitting, BP Cuff Size: Large adult) Temp 36.2 ?C (97.1 ?F) Ht 5' 9 (1.753 m) Wt 298 lb 6.4 oz (135 kg) BMI 44.07 kg/m? Constitutional: General: Not in acute distress. Appearance: Normal appearance. Not toxic-appearing. Ear, nose, mouth: Bilateral external ear and nose normal. Nose: Nose normal. Mouth: Appearance normal, no bleeding, moist mucus membranes Eyes: General: No scleral icterus. No discharge from bilateral eyes Extraocular Movements: Extraocular movements intact. Pupils equal and reactive bilaterally Cardiovascular: Heart: Regular rhythm. Normal heart sounds. Vascular: No carotid bruit. Edema: No edema in bilateral lower extremities Pulmonary: Effort: Pulmonary effort is normal. No respiratory distress. Breath sounds: Normal breath sounds. No wheezing. Chest wall: No tenderness. Abdominal: Palpations: There is no abdominal tenderness, no guarding. Musculoskeletal: Bilateral upper and lower extremities: Normal range of motion, no deformity Head: Normocephalic and atraumatic. Neck: Normal range of motion and neck supple. No muscular tenderness. Lymphadenopathy: Cervical: No cervical adenopathy. Skin: General: Skin is warm and dry. Coloration: Skin is not jaund (more content not included)...[facility]09-06-2023 History of Present illness Narrative* Donya Childress MD - 02/27/2023 10:30 AM EDT Images from the original note were not included. [facility] CARDIOVASCULAR [facility] THORACIC SURGERY [address] [facility] [address] Dept: [phone] Dept Loc: [phone] Visit type: New Reason for Visit: Coronary artery disease Assessment and plan 67-year-old male with multivessel coronary artery disease. Coronary artery disease: I discussed with him and his the indications, risks, benefits, and perioperative course of a coronary artery bypass grafting. I discussed alternatives including no intervention, medical therapy only, and percutaneous coronary intervention with medications. A surgical re vascularization is recommended in his case. On my review of the coronary angiogram, he does have good targets and will need 3 vessel bypass grafts. He is quite functional and is of low risk. He is agreeable. For work-up completion, I have ordered an echocardiogram, CT chest without contrast, and lower extremity vein mapping. The risks of the procedure/s include but are not limited to, bleeding, infection, pneumonia, respiratory failure, prolonged Intensive Care Unit stay, multiorgan failure, renal failure needing temporary and/or permanent dialysis, cerebrovascular accident, pulmonary embolism, deep venous thrombosis, cardiac failure or ischemia or arrhythmia, and . Donya Childress MD Cardiothoracic Surgery History of Present Illness Robert Lipscomb is a 67 y.o. male referred by Dr. Armendariz for CABG. Per notes, patient has a PMH of CAD, drug-eluting stent to the RCA in 2004, RBBB, HTN, hyperlipidemia, anemia, and diabetes (A1C 7.8). With his history he underwent a heart cath that showed 0% calcified ostial LAD; 50-60% Mid LAD 80% Mid RCA 60% Prox OM2; 90% ostial late OM2 (small 1.5 mm vessel) with the recommendations for surgery coronary revascularization. He had mild chest pain prompting presentation. Stress test showed ischemia prompting coronary angiogram which showed the above. I have reviewed the images and my interpretation as above. He had extensive abdominal surgery in the that included a right diaphragmatic repair. Patient is here today for an evaluation. Past Medical History Coronary artery disease History of testicular cancer in the Past Surgical History Laparotomy Hernia repair Diaphragmatic repair Family History None contributory Social History Social History Tobacco Use Smoking status: Never Smokeless tobacco: Never Substance Use Topics Alcohol use: Not Currently Drug use: Never Allergies Allergies Allergen Reactions Amoxicillin Amoxicillin-Pot Clavulanate Atorvastatin Other Metformin Hcl Other Other pollen causes redness of eyes Pollen Extract Cough Clavulanic Acid Rash Metformin Diarrhea and Rash Medications Current Outpatient Medications: amLODIPine (Norvasc) 5 MG tablet, , Disp: , Rfl: Apoaequorin (Prevagen) 10 MG capsule, , Disp: , Rfl: aspirin 81 MG oral suspension, , Disp: , Rfl: atenolol (Tenormin) 50 MG tablet, , Disp: , Rfl: enalapril (Vasotec) 20 MG tablet, , Disp: , Rfl: insulin glargine (Lantus SoloStar) 100 UNIT/ML pen, , Disp: , Rfl: liraglutide (Victoza) 18 MG/3ML injection, , Disp: , Rfl: Multiple Vitamins-Minerals (Centrum Silver 50+Men) tablet, , Disp: , Rfl: nitroglycerin (Nitrostat) 0.4 MG SL tablet, Place 0.4 mg under the tongue every 5 minutes as neededfor chest pain., Disp: , Rfl: repaglinide (Prandin) 2 MG tablet, , Disp: , Rfl: rosuvastatin (Crestor) 20 MG tablet, , Disp: , Rfl: Review of Systems Review of Systems All other systems reviewed and are negative. Physical Exam Vitals: BP (!) 158/76 (BP Location: Left arm, Patient Position: Sitting, BP Cuff Size: Large adult) Temp 36.2 C (97.1 F) Ht 5' 9 (1.753 m) Wt 298 lb 6.4 oz (135 kg) BMI 44.07 kg/m Constitutional: General: Not in acute distress. Appearance: Normal appearance. Not toxic-appearing. Ear, nose, mouth: Bilateral external ear and nose normal. Nose: Nose normal. Mouth: Appearance normal, no bleeding, moist mucus membranes Eyes: General: No scleral icterus. No discharge from bilateral eyes Extraocular Movements: Extraocular movements intact. Pupils equal and reactive bilaterally Cardiovascular: Heart: Regular rhythm. Normal heart sounds. Vascular: No carotid bruit. Edema: No edema in bilateral lower extremities Pulmonary: Effort: Pulmonary effort is normal. No respiratory distress. Breath sounds: Normal breath sounds. No wheezing. Chest wall: No tenderness. Abdominal: Palpations: There is no abdominal tenderness, no guarding. Musculoskeletal: Bilateral upper and lower extremities: Normal range of motion, no deformity Head: Normocephalic and atraumatic. Neck: Normal range of motion and neck supple. No muscular tenderness. Lymphadenopathy: Cervical: No cervical adenopathy. Skin: General: Skin is warm and dry. Coloration: Skin is not jaundiced. Neurological: General: No focal deficit present. Cranial Nerves: No obvious cranial nerve deficit. Psychiatric: Mood and Affect: Mood normal. Thought Content: Thought content normal. Patient has good judgement and insight Mental Status: Alert and oriented to place, person, and time. Labs No results found for: WBC, HGB, PLT, NA, K, CREATININE Imaging Cardiac Cath 02/12/23 CONCLUSIONS 80% calcified ostial LAD; 50-60% Mid LAD 80% Mid RCA 60% Prox OM2; 90% ostial late OM2 (small 1.5 mm vessel) RECOMMENDATIONS Surgery consult for coronary revascularization CORONARY ANGIOGRAPHY DOMINANCE: Right Dominant LEFT ANTERIOR DESCENDING ARTERY: LAD: Calcified 80% Ostial lesion in LAD Calcified 60% Mid lesion in LAD OM 2: Tubular 60% Proximal lesion in 2nd OM RIGHT CORONARY ARTERY: RCA: Calcified 80% Mid lesion in RCA RPLS: In-Stent Restenosis 50% Ostial lesion in RPL1 Chest XRAY 02/08/23 FINDINGS: LINES/DEVICES: None. LUNGS: Significant asymmetric elevation right hemidiaphragm unchanged compared to prior exam. There is no significant overlying atelectasis. Lungs are otherwise clear. MEDIASTINUM AND CARDIOVASCULAR STRUCTURES: Normal size and contour of the cardiomediastinal silhouette. No evidence of pulmonary vascular congestion. BONES AND SOFT TISSUES: No fracture or focal osseous lesion. Extensive surgical clips anterior to the proximal lumbar spine. IMPRESSION: 1. Significant asymmetric elevation right hemidiaphragm unchanged. 2. No acute cardiopulmonary disease. 3. Numerous surgical clips anterior to the proximal lumbar spine. Stress test 01/25/23 67-year-old man with a history of chest pain Stress protocol: Resting EKG demonstrates sinus rhythm with a rate of 67 bpm resting blood pressure is 138/70 mmHg. right bundle branch block is noted. The patient exercised according to the regular Boo protocol for a total duration of 6 minutes attaining a maximum heart rate of 129 bpm which was 85% of maximum predicted heart rate; the maximum workload was 7 metabolic equivalents. At rest there were no ST or T wave changes noted to suggest ischemia and at peak exercise upsloping ST changes only were noted which did not meet the criteria for ischemia. No clinical angina was noted the test was terminated due to the target heart rate being achieved/fatigue. The peak blood pressure was 184/72 mmHg. Rate-pressure product was 23,700. Myocardial perfusion protocol. 15 mCi of technetium 99m sestamibi was injected at rest. The patient exercised according to regular Boo protocol for total duration of 6 minutes and at peak exercise 44.8 mCi of technetium 99m sestamibi was injected stress images were obtained stress and rest images were reconstructed in comparing the short axis vertical long and horizontal long axis. Gated images were also obtained. Perfusion SPECT analysis: Review of the stress images demonstrate normal uptake of tracer noted in all areas of the myocardium except for small portion of the inferolateral wall with reduced perfusion. The resting images demonstrate normal uptake of tracer noted in all areas of the myocardium. The above is suggestive of mild ischemia noted in the inferolateral wall. Gated SPECT analysis: The gated ejection fraction is 58%. Conclusion: Mildly abnormal exercise myocardial perfusion stress test at a moderate workload Mild inferolateral ischemia Preserved ejection fraction. Patient Care Team: PCP: Temo Rodriguez MD Cardiology: Dr. Melita Armendariz Disclaimer INFORMED CONSENT:The nature and purpose of the proposed treatment or procedure have been discussed.The risks and benefits of the proposed treatment or procedures have been reviewed. Alternatives have been reviewed in addition to the risks and benefits of not receiving treatments or undergoing procedures. Pursuant to this discussion, the patient agrees to undergo the proposed treatment or procedure. Captured images seen in this note from are not a substitute for a comprehensive interpretation of the entire data set as reflected by the interpreting physician with regard to radiology, echocardiography, and other diagnostic images. This note may have been dictated using [employer] Edition 2.6 and/or [email or web address] Voice Recognition Feature. The document was proofread, however unrecognized voice recognition netezza architect errors may be present. documented in this [facility]08-22-2023 History and physical note Author Melita Armendariz [facility] February 12, 2023 9:23am Note Date/Time February 08, 2023 10 :45am [facility] Medical Records Department [address] [place] [address] History & Physical Exam 02/08/23 1043 MR#: [id number] Acct: [id number] Name: ROBERT LIPSCOMB Jr. Rep #:[id number] : 1955 67 From: Melita Armendariz MD PCP: Dr. Temo Rodriguez, DO Status:[facility] [place] Location: [facility] History and Physical Date of Admission: 02/12/23 ROBERT LIPSCOMB, is a 67 M who presents to the [facility] today for a heart catheterization. He had a history of previous inferior myocardial infarction who has previously been following up at the [facility]. He hasa history of coronary artery disease status post drug-eluting stent to RCA in 2004, right bundle branch block, hypertension, hyperlipidemia, anemia, and diabetes. He states right side chest pain that has occurred at rest. This lasts less than 5 minutes. This occurs once a month. He states prior to stenting in 2004 he noteright arm numbness and weakness. He describes this a minor ache. This may also be noted on right side of neck. He rates it a 1/10. He denies symptoms of shortness of breath with exertion, shortness of breath at rest, orthopnea, PND, sudden weight gain, or bilateral lower extremity edema. He denies chronic cough.He denies palpitations, lightheadedness, dizziness, near syncope, or syncopal episodes. He denies claudication issues. He denies fever or chills. He denies blood in urine, blood in stool, or epistaxis. He denies myalgia. He denies unexplainable fatigue. His exercise tolerance is stable. He underwent a stress test on 01/25/2023 to evaluate symptoms. This was considered to be mildly abnormal at a moderate workload showing inferolateral ischemia. On account of history, symptoms, and abnormal stress test, he will proceed with heart catheterization. Intake Vital Signs: See EMR Intake Visit Reasons: [facility] Gameroom Technician Required: No Is patient in pain?: No Allergies amoxicillin [From Augmentin] Allergy (Severe, Verified 01/07/23 08:38) Unknownclavulanic acid [From Augmentin] Allergy (Severe, Verified 01/07/23 08:38) Unknownatorvastatin [From Lipitor] Allergy (Verified 01/07/23 08:38) Pain in jointsmetformin [From Glucophage] Allergy (Verified 01/07/23 08:38) Rashpollen extracts Allergy (Verified 01/07/23 08:38) Other Medications See EMR [facility] Medical History (Reviewed 01/07/23 @ 08:44 by Richardson Ivy DIRECTOR OF ADVERTISING SALES, DIRECTOR OF ADVERTISING SALES-C) Acute maxillary sinusitis, unspecified Anemia Arthritis Atherosclerosis of coronary artery of [place] heart without angina pectoris Cataracts, bilateral Essential (primary) hypertension Family history of colon cancer in father Family history of malignant neoplasm of colon in father H/O transfusion of whole blood Hemorrhoids History of testicular cancer Hyperlipidemia Lab test negative for COVID-19 virus Obesity due to excess calories Old inferior wall myocardial infarction Personal history of colonic polyps Pneumonia Right bundle branch block (RBBB) with left anterior fascicular block Seasonal allergies Skin cancer 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 diabetic retinopathy URI (upper respiratory infection) Surgical History H/O colonoscopy H/O inguinal hernia repair H/O tympanostomy (2020) History of appendectomy History of coronary artery stent placement (2004) History of incisional hernia repair History of orchiectomy History of tonsillectomy and adenoidectomy Family History (Reviewed 01/07/23 @ 08:44 by Richardson Ivy DIRECTOR OF ADVERTISING SALES, DIRECTOR OF ADVERTISING SALES-C) Mother Cancer pancreaticFather Cancer colonSister Diabetes CAD (coronary artery disease)Aunt Colon cancer Breast cancer Social History (Reviewed 01/07/23 @ 08:44 by Richardson Ivy DIRECTOR OF ADVERTISING SALES, DIRECTOR OF ADVERTISING SALES-C) Smoking Status: Never smoker second hand exposure: No alcohol intake: current substance use type: does not use ROS Const Const: Positive for other (Low back pain); Negative for fatigue, weakness, headache(s), frequent falls, difficulty sleepingor excessive sweating Eyes Eyes: Negative for loss of peripheral vision, transient loss of vision, blurry vision, double vision or tunnel vision ENT ENT: Positive for dizziness (rare); Negative for headache(s), Nosebleed/epistaxis or balance problems Cardio Chest Pain: Yes Palpitations: No Edema: None Muscle aches with walking: None Resp Respiratory: Negative for SOB with activity, SOB at rest, SOB orthopnea\SOB lying down, Cough or paroxysmal nocturnal dyspnea GI GI: Negative nausea, vomiting, heartburn or black,tarry stools : Negative for hematuria Musc Musc: Negative for muscle aches/ myalgia, muscle weakness, joint pain or balanceproblems Skin Skin: Negative non-healing lesions, rash or unusual bruising Neuro Neuro: Positive for dizziness (rare); Negative for lightheadedness, near syncope, syncope, frequent falls, headache(s), weakness, blurry vision, double vision or lack of coordination Antwan Hematologic/Lymphatic: Negative for easy bleeding or easy bruising Endo Endo: Negative for fatigue, excessive sweating or increased thirst/drinking Psych Psych: Negative for anxiety or depression Allergy Allergy/Immunology: Negative for hives and Negative for rash Cardiology Exam Const Appearance: cooperative, healthy appearing, comfortable and no acute distress Nutritional Appearance: well nourished and obese Orientation: alert, awake and oriented x3 Head Head: normal to inspection Ears: hearing grossly normal bilaterally Nose: external nose normal Face and Sinus: face symmetric Mouth: oral mucosae normal Eyes General: appearance normal, both eyes and all related structures Eyelids: eyelids normal EOM: EOM intact bilaterally Neck Neck: normal visual inspection and no JVD Carotids: normal carotid upstroke Chest Chest inspection: normal inspection of the chest, symmetric chest movement and normal respiratory effort; Negative cough Auscultation: Left: Clear to Auscultation and Right: Diminished Base Cardio Rate: regular rate Rhythm: regular rhythm Heart sounds: S1 normal and S2 normal; Negative rub, gallop or murmur GI GI: normal to inspection and obese Neuro General: patient alert, patient awake, patient oriented x3 and CN's II-XI intactbilaterally Skin Skin: no rashes or lesions noted Extremities Pulses: Normal: Right Posterior Tibial Pulse, Left Posterior Tibial Pulse, RightRadial Pulse and Left Radial Pulse Lower Extremity Edema: None: Bilateral Psych Psychological: normal affect Supplemental Info Supplemental Information Echocardiogram from 06/19/2017: Interpretation Summary Normal LV size. Mild concentric left ventricular hypertrophy. Left ventricle systolic function is normal. The estimate ejection fraction is 60%. Transmitral and pulmonary venous Doppler flow suggestive of impaired relaxation of left ventricle. Stress test from 01/25/2023: Conclusion: Mildly abnormal exercise myocardial perfusion stress test at a moderate workload Mild inferolateral ischemia Preserved ejection fraction. Assessment and Plan Assessment and Plan (1) History of coronary artery stent placement: Status: Resolved Comment: SUZTETE-RCA 2004. At [facility] Plan: Given his history of coronary artery disease and stenting in 2004, previous symptoms noted on right side of chest, and diabetes, he underwent a stress test to rule out coronary artery disease component to chest pain on 01/25/2023. On account of abnormal stress test, he will proceed with heart catheterization. Depending on results, further recommendation will be made. (2) Essential (primary) hypertension: stress test, he will proceed with heart catheterization. Status: Chronic Plan: We will continue to observe and adjust medication as necessary. (3) Hyperlipidemia: Status: Chronic Qualifiers: Hyperlipidemia type: pure hypercholesterolemia Qualified Code(s): E78.00 - Pure hypercholesterolemia, unspecified; E78.00 - Pure hypercholesterolemia, unspecified; E78.00 - Pure hypercholesterolemia, unspecified; E78.0 - Pure hypercholesterolemia Plan: He will continue current statin medication, Crestor 20 mg p.o. daily. He expects this and other laboratory testing including kidney function and electrolytes to be evaluated primary care physician in the near future. Laboratory Tests 06/26/22 09:00 Hemoglobin A1c 7.9 H Triglycerides 212 H Cholesterol 115 LDL Cholesterol 39 HDL Cholesterol 34 L 02/12/23 0923 <Electronically signed by Melita Armendariz MD> Cosigner Signature (if applicable): 02/08/23 1142 <Electronically signed by Richardson KAUR> CC: NATASHA Ivy; Dr. Melita Armendariz MD; Dr. Temo Rodriguez, DO~ Signed [facility] Work Phone: Evaluation noteNo assessment information available [facility] Work Phone: Evaluation note* Diagnosis Onset Date Resolution Status Essential (primary) hypertension chronic Hyperlipidemia chronic History of coronary artery stent placement 2004 resolved [facility] Work Phone: Evaluation note* Diagnosis Coronary artery disease of [place] artery of [place] heart with stable angina pectoris (HCC)- Primary Atherosclerotic heart disease of [place] coronary artery without angina pectoris [facility] Diagnosis CAD in [place] artery- Primary Atherosclerotic heart disease of [place] coronary artery without angina pectoris [facility] Diagnosis Encounter for other preprocedural examination Other disorders of arteries, arterioles and capillaries in diseases classified elsewhere (HCC) 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) Atherosclerotic heart disease of [place] coronary artery without angina pectoris [facility] CAD in [place] artery- Primary CAD in [place] artery Aneurysm of ascending aorta without rupture (HCC) Coronary atherosclerosis due to calcified coronary lesion (CODE) 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, without long-term current use of insulin (HCC) [facility] CAD in [place] artery- Primary Mixed hyperlipidemia Hypertension, unspecified type Elevated hemidiaphragm documented [facility]* Diagnosis CAD in [place] artery- Primary Hypertension, unspecified type Elevated hemidiaphragm Obesity, Class III, BMI 40-49.9 (morbid obesity) (HCC) Mixed hyperlipidemia documented in this encounter [facility] for referral (narrative)No reason for referral information [facility]WC[facility] Work Phone: Summary Purpose Family History No Family History Records Found Relationship Condition Age at Onset Recorded Date/T jasvir mother Malignant neoplasm Unknown father Malignant neoplasm Unknown sister Diabetes mellitus Unknown Coronary artery disease Unknown aunt Malignant neoplasm of colon Unknown Malignant neoplasm of breast Unknown Advance Directives No Advanced Directives Records Found Advance Directive Response Recorded Date/ Time Living Will No November 17, 2020 1 1:26am Power of Laboratory Assistant No November 17, 2020 11:26am Advance Directive Response Recorded Date/ Time Living Will No November 17, 2020 1 2:26pm Power of Laboratory Assistant No November 17, 2020 12:26pm Advance Directive Response Recorded Date/ Time Advance Directives on File No Janus t 2022 8:37am Name of Medical Power of Laboratory Assistant cat lipscomb February 12, 2023 8:37am Advance Directives Yes February 12, 2023 8:37am Living Will Yes February 12 8:37am Power of Laboratory Assistant Yes February 12, 023 8:37am Latest Code Status on File Code Status Date Activated Date Inactivated Comments Full Code 03/21/2023 5:42 AM 03/28/2023 4:20 PM Latest Code Status on File Code Status Date Activated Date Inactivated Comments Full Code 03/21/2023 5:42 AM 03/28/2023 4:20 PM Advance Directive Response Recorded Date/ Time Advance Directives on File No Cesar bañuelos 2022 7:37am Name of Medical Power of Laboratory Assistant cat lipscomb February 12, 2023 7:37am Advance Directives on File Yes 2022 1:22pm Advance Directives Yes February 12, 2023 7:37am Living Will Yes May 01 1:22pm Power of Laboratory Assistant Yes May 01, 2023 1:22pm Advance Directive Response Recorded Date/ Time Advance Directives on File Yes 2022 1:22pm Advance Directives Yes February 12, 2023 7:37am Living Will Yes May 01 1:22pm Power of Laboratory Assistant Yes May 01, 2023 1:22pm Advance Directive Response Recorded Date/ Time Advance Directives Yes February 12, 2023 8:37am Living Will Yes May 01 2:22pm Power of Laboratory Assistant Yes May 01, 2023 2:22pm Advance Directive Response Recorded Date/ Time Living Will Yes May 01 2:22pm Power of Laboratory Assistant Yes May 01, 2023 2:22pm Advance Directives Yes February 12, 2023 8:37am Advance Directive Response Recorded Date/ Time Living Will Yes May 01 2:22pm Do you have a Healthcare Power of Laboratory Assistant? Yes May 01, 2023 2:22pm Advance Directives Yes February 12, 2023 8:37am Advance Directive Response Recorded Date/ Time Advance Directives Yes February 12, 2023 8:37am Chief Complaint and Reason for Visit Chief Complaint 1 Y FU (req to see J HR) CHEST PAIN CHEST PAIN Amb Documentation Reason for Visit Essential (primary) hypertension Hyperlipidemia History of coronary artery stent placement Chief Complaint 1 Y FU (req to see J HR) CHEST PAIN CHEST PAIN Amb Documentation ABN STRESS TEST ABN STRESS TEST Reason for Visit Essential (primary) hypertension Hyperlipidemia History of coronary artery stent placement Chief Complaint 1 Y FU (req to see J HR) CHEST PAIN CHEST PAIN Amb Documentation ABN STRESS TEST ABN STRESS TEST AAA, PREOP Reason for Visit Essential (primary) hypertension Hyperlipidemia History of coronary artery stent placement Chief Complaint 1 Y FU (req to see J HR) CHEST PAIN CHEST PAIN Amb Documentation ABN STRESS TEST ABN STRESS TEST AAA, PREOP S/P CABG [facility] (scanned) S/P CABG 03/21/2023 Reason for Visit Essential (primary) hypertension Hyperlipidemia History of coronary artery stent placement History of coronary artery bypass surgery Essential (primary) hypertension Hyperlipidemia History of coronary artery stent placement Chief Complaint CHEST PAIN CHEST PAIN Amb Documentation ABN STRESS TEST ABN STRESS TEST AAA, PREOP S/P CABG [facility] (scanned) S/P CABG 03/21/2023 S/P CABG Reason for Visit History of coronary artery bypass surgery Essential (primary) hypertension Hyperlipidemia History of coronary artery stent placement Chief Complaint AAA, PREOP S/P CABG [facility] (scanned) S/P CABG 03/21/2023 S/P CABG CLASS S/P CABG Reason for Visit History of coronary artery bypass surgery Essential (primary) hypertension Hyperlipidemia History of coronary artery stent placement Chief Complaint S/P CABG [facility] (scan garth) S/P CABG 03/21/2023 S/P CABG CLASS S/P CABG S/P CABG 3 m fu Reason for Visit Essential (primary) hypertension History of coronary artery bypass surgery History of coronary artery stent placement Hyperlipidemia Essential (primary) hypertension History of coronary artery bypass surgery History of coronary artery stent placement Hyperlipidemia Chief Complaint S/P CABG [facility] (scan garth) S/P CABG 03/21/2023 S/P CABG CLASS S/P CABG 3 m fu S/P CABG Reason for Visit Essential (primary) hypertension History of coronary artery bypass surgery History of coronary artery stent placement Hyperlipidemia Essential (primary) hypertension History of coronary artery bypass surgery History of coronary artery stent placement Hyperlipidemia Chief Complaint S/P CABG 03/21/2023 S/P CABG CLASS S/P CABG 3 m fu S/P CABG Diabetes S/P CABG Reason for Visit Essential (primary) hypertension History of coronary artery bypass surgery History of coronary artery stent placement Hyperlipidemia Diabetes Essential (primary) hypertension Hyperlipidemia Obesity Chief Complaint 3 m fu S/P CABG Diabetes S/P CABG 9 Wk FU DWD Reason for Visit Essential (primary) hypertension History of coronary artery bypass surgery History of coronary artery stent placement Hyperlipidemia Diabetes Essential (primary) hypertension Hyperlipidemia Obesity Diabetes Hyperlipidemia Obesity Chief Complaint Admit Date 4 M FU June 03, 2024 8:34am CUT PINKY ON L FINGER June 05 4:23pm 6-9 M FU EKG August 26, 2024 8:56 am Low back pain, unspecified August 26 10:38am Reason for Visit Admit Date Constipation June 03, 2024 8:34am Diabetes June 03, 2024 8:34am Essential (primary) hypertension Decembe r 2023 8:34am High triglycerides June 03, 2024 8:34am Hyperlipidemia June 03, 2024 8:34am Obesity June 03, 2024 8:34am Laceration of left little fi nger w/o foreign body w/o damage to nail June 05, 2024 4:23pm Preop cardiovascular exam August 26 8:56am Essential (primary) hypertension August 262024 8:56am History of coronary artery bypass surger y August 26, 2024 8:56am History of coronary artery stent placeme nt August 26, 2024 8:56am Hyperlipidemia August 26, 2024 8:56 am Chief Complaint Admit Date 6-9 M FU EKG August 26, 2024 8:56 am Low back pain, unspecified August 26 10:38am 4 M FU September 30, 2024 8:41 am SCROTAL PAIN November 03, 2024 8:08a m Reason for Visit Admit Date Preop cardiovascular exam August 26 8:56am Essential (primary) hypertension August 262024 8:56am History of coronary artery bypass surger y August 26, 2024 8:56am History of coronary artery stent placeme nt August 26, 2024 8:56am Hyperlipidemia August 26, 2024 8:56 am Diabetes September 30, 2024 8:41 am Essential (primary) hypertension September 302024 8:41am High triglycerides September 30, 2024 8:41 am Obesity September 30, 2024 8:41 am Chief Complaint Admit Date 6 M FU, RS 01/27April 01, 2025 8: 40am Reason for Referral Specialty Diagnoses / Procedures Referred By Teri t Referred To Contact Cardiology Diagnoses Encounter for other preprocedural examination Other disorders of arteries, arterioles and capillaries in diseases classified elsewhere (HCC) 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) Procedures Vascular US lower extremity vein mapping for bypass bilateral Donya Childress MD [address] [place] [address] [address] [place] [address] Referral ID Status Reason Start Date Expiration Date Visits Re quested Visits Authorized [id number] Closed 02/27/2023 08/26/2023 1 1 Additional Source Comments (unrecognized sect ion and content) No Status Records FoundNo Status Records FoundNo Status Records Found INFORMATION SOURCE (unrecogn ized section and content) DATE CREATED AUTHOR 08/10/2021 [facility] DATE CREATED AUTHOR AUTHOR'S ORGANIZ ATION 06/29/2023 [facility] DATE CREATED AUTHOR AUTHOR'S ORGANIZ ATION 04/03/2025 [facility] Care Teams (unrecognized sec tion and content) Team Status: Active Member Role Status Dates Dr. Temo Rodriguez DO Family Provider Active Dr. Temo Rodriguez DO Primary Care Provider Active Team Status: Inactive Member Role Status Dates Dr. Temo Rodriguez DO Primary Care Provider, Attendin g Provider Active Team Status: Inactive Member Role Status Dates Dr. Temo Rodriguez DO Primary Care Provider, Referrin g Provider Active Richardson Ivy DIRECTOR OF ADVERTISING SALES, DIRECTOR OF ADVERTISING SALES-C Attending Provider Active Team Status: Active Member Role Status Dates Dr. Temo Rodriguez DO Primary Care Provider Active Richardson Ivy DIRECTOR OF ADVERTISING SALES, DIRECTOR OF ADVERTISING SALES-C Referring Provider, Other Provide r Active Dr. Hadley Chilel MD Attending Provider Active Team Status: Active Member Role Status Dates Dr. Temo Rodriguez DO Primary Care Provider Active Richardson Ivy DIRECTOR OF ADVERTISING SALES, DIRECTOR OF ADVERTISING SALES-C Attending Provider Active Team Status: Inactive Member Role Status Dates Dr. Temo Rodriguez DO Primary Care Provider Active Richardson Ivy DIRECTOR OF ADVERTISING SALES, DIRECTOR OF ADVERTISING SALES-C Attending Provider, Referring Pro vider Active Team Status: Active Member Role Status Dates Dr. Temo Rodriguez DO Primary Care Provider Active Dr. Melita Armendariz MD Attending Provider , Referring Provider, Other Provider Active Richardson Ivy DIRECTOR OF ADVERTISING SALES, DIRECTOR OF ADVERTISING SALES-C Other Provider Active Team Status: Inactive Member Role Status Dates Dr. Temo Rodriguez DO Primary Care Provider Active Dr. Melita Armendariz MD Attending Provider, Referring Pr ovider Active Rcihardson Ivy DIRECTOR OF ADVERTISING SALES, DIRECTOR OF ADVERTISING SALES-C Other Provider Active Grain Merchandiser Relationship Specialty Start Date End Date Temo Rodriguez [address] [place] [address] PCP - General Family Medicine 02/12/23 Grain Merchandiser Relationship Specialty Start Date End Date Temo Rodriguez [address] [place] [address] PCP - General Family Medicine 02/12/23 Grain Merchandiser Relationship Specialty Start Date End Date Temo Rodriguez [address] [place] [address] PCP - General Family Medicine 02/12/23 Grain Merchandiser Relationship Specialty Start Date End Date Temo Rodriguez [address] [place] [phone] PCP - General Family Medicine 02/12/23 Grain Merchandiser Relationship Specialty Start Date End Date Temo Rodriguez [address] [place] [phone] PCP - General Family Medicine 02/12/23 Grain Merchandiser Relationship Specialty Start Date End Date Temo Rodriguez [address] [address] PCP - General Family Medicine 02/12/23 Team Status: Inactive Member Role Status Dates Dr. Temo Rodriguez DO Primary Care Provider Active DONYA CHILDRESS MD Attending Provider Active Grain Merchandiser Relationship Specialty Start Date End Date Temo Rodriguez [address] [place] [address] PCP - General Family Medicine 02/12/23 Team Status: Active Member Role Status Dates Dr. Temo Rodriguez DO Primary Care Provider Active Dr. Melita Armendariz MD Attending Provider Active Team Status: Active Member Role Status Dates Dr. Temo Rodriguez DO Primary Care Provider Active Dr. Hadley Chilel MD Attending Provider, Referring Pro vider Active Team Status: Inactive Member Role Status Dates Dr. Temo Rodriguez DO Primary Care Provider Active Dr. Hadley Chilel MD Attending Provider, Referring Pro vider Active Team Status: Inactive Member Role Status Dates Dr. Temo Rodriguez DO Primary Care Provider Active Self Referred Attending Provider Active Grain Merchandiser Relationship Specialty Start Date End Date Temo Rodriguez [address] [facility] [place] [phone] PCP - General Family Medicine 02/12/23 Team Status: Inactive Member Role Status Dates Dr. Temo Rodriguez DO Primary Care Provider, Referrin g Provider Active NATASHA Tompkins Attending Provider Active Team Status: Active Member Role Status Dates Dr. Temo Rodriguez DO Primary Care Provider Active Team Status: Inactive Member Role Status Dates Dr. Temo Rodriguez DO Primary Care Provider Active Start: June 03, 2024 End: June 03, 2024 Dr. Temo Rodriguez DO Referring Provider Active Start: June 03, 2024 End: June 03, 2024 NATASHA Tompkins Attending Provider Active Start: June 03, 2024 End: June 03, 2024 Team Status: Inactive Member Role Status Dates Dr. Temo Rodriguez DO Primary Care Provider Active Start: June 05, 2024 End: June 05, 2024 Dr. Temo Rodriguez DO Referring Provider Active Start: June 05, 2024 End: June 05, 2024 Gabino LANDEROS, PA Attending Provider Active Sta rt: June 05, 2024 End: June 05, 2024 Team Status: Inactive Member Role Status Dates Dr. Temo Rodriguez DO Primary Care Provider Active Start: August 21, 2024 End: August 21, 2024 Dr. Temo Rodriguez DO Attending Provider Active Start: August 21, 2024 End: August 21, 2024 Dr. Temo Rodriguez DO Referring Provider Active Start: August 21, 2024 End: August 21, 2024 Team Status: Inactive Member Role Status Dates Dr. Temo Rodriguez DO Primary Care Provider Active Start: August 26, 2024 End: August 26, 2024 Dr. Temo Rodriguez DO Referring Provider Active Start: August 26, 2024 End: August 26, 2024 Richardson Ivy NP DIRECTOR OF ADVERTISING SALES-C Attending Provider Active S tart: August 26, 2024 End: August 26, 2024 Team Status: Active Member Role Status Dates Dr. Temo Rodriguez DO Primary Care Provider Active Start: August 26, 2024 Dr. Temo Rodriguez DO Attending Provider Active Start: August 26, 2024 Dr. Temo Rodriguez DO Referring Provider Active Start: August 26, 2024 Team Status: Inactive Member Role Status Dates Dr. Temo Rodriguez DO Primary Care Provider Active Start: August 26, 2024 End: August 26, 2024 Dr. Temo Rodriguez DO Attending Provider Active Start: August 26, 2024 End: August 26, 2024 Dr. Temo Rodriguez DO Referring Provider Active Start: August 26, 2024 End: August 26, 2024 Team Status: Inactive Member Role Status Dates Dr. Temo Rodriguez DO Primary Care Provider Active Start: September 23, 2024 End: September 23, 2024 Dr. Temo Rodriguez DO Attending Provider Active Start: September 23, 2024 End: September 23, 2024 Team Status: Inactive Member Role Status Dates Dr. Temo Rodriguez DO Primary Care Provider Active Start: September 30, 2024 End: September 30, 2024 Dr. Temo Rodriguez DO Referring Provider Active Start: September 30, 2024 End: September 30, 2024 Geovani Peterson NP-C Attending Provider Active Start: September 30, 2024 End: September 30, 2024 Team Status: Inactive Member Role Status Dates Dr. Temo Rodriguez DO Primary Care Provider Active Start: November 03, 2024 End: November 03, 2024 Dr. Temo Rodriguez DO Attending Provider Active Start: November 03, 2024 End: November 03, 2024 Dr. Temo Rodriguez DO Referring Provider Active Start: November 03, 2024 End: November 03, 2024 Team Status: Active Member Role/Relationship Status Dates Dr. Temo Rodriguez DO Primary care physician Active Team Status: Inactive Member Role/Relationship Status Dates Dr. Temo Rodriguez DO Primary care physician Active Start: April 01, 2025 End: April 01, 2025 Dr. Temo Rodriguez DO Referring Provider Active Start: April 01, 2025 End: April 01, 2025 NATASHA Tompkins Attending physician Active Start: April 01, 2025 End: April 01, 2025 Goals (unrecognized section and content) Goals may be documented in a n alternate sectionGoals may be documented in an alternate sectionGoals may be documented in an alternate sectionGoals may be documented in an alternate sectionGoals may be documented in an alternate sectionGoals may be documented in an alternate sectionGoals may be documented in an alternate sectionGoals may be documented in an alternate sectionGoals may be documented in an alternate sectionGoals may be documented in an alternate sectionGoals may be documented in an alternate sectionGoals may be documented in an alternate sectionGoals may be documented in an alternate sectionGoals may be documented in an alternate sectionGoals may be documented in an alternate sectionGoals may be documented in an alternate sectionGoals may be documented in an alternate sectionGoals may be documented in an alternate sectionGoals may be documented in an alternate section Reason for Visit (unrecogniz ed section and content) Reason Comments New Patient Reason Onset Date Comments Surgery Scheduling 02/27/2023 Reason Onset Date Comments Patient Education 03/08/2023 Pre op angeliquein rosemarie Specialty Diagnoses / Procedures Referred By Teri bañuelos Referred To Contact Cardiology Diagnoses Encounter for other preprocedural examination Other disorders of arteries, arterioles and capillaries in diseases classified elsewhere (HCC) 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) Procedures Vascular US lower extremity vein mapping for bypass bilateral Donya Childress MD [address] [place] [id number] Referral ID Status Reason Start Date Expiration Date Visits Re quested Visits Authorized [id number] Closed 02/27/2023 08/26/2023 1 1 Specialty Diagnoses / Procedures Referred By Teri bañuelos Referred To Contact Diagnoses 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 [I25.10] Procedures ND CABG W/ARTERIAL GRAFT THREE ARTERIAL GRAFTS ND ECHO TRANSESOPHAG R-T 2D W/PRB IMG ACQUISJ I&R CORONARY ARTERY BYPASS GRAFT, TRANSESOPHAGEAL ECHOCARDIOGRAM Echocardiography transesophageal real-time Donya Childress MD [address] [place] [address] [address] [place] [address] [address] [place] [address] [place] [address] Referral ID Status Reason Start Date Expiration Date Visits Re quested Visits Authorized [id number] 1 Reason Onset Date Comments Hyperglycemia 03/29/2023 Reason Comments Follow-up Reason Comments Post-op Scheduled Active and Recently Administ ered Medications (unrecognized section and content) Medication Order 03/26/2023 03/27/2023 03/28/2023 acetaminophen (Tylenol) tablet 1,000 mg 1,000 mg, Oral, Every 8 hours, First dose on Sophie 03/21/23 at 1230, [facility] 0448 (Given - Provider: Claudette Hurd RN)1316 (Given - Provider: Candy Moyer, PELON)2036 (Given - Provider: Temo Cook RN) 0525 (Given - Provider: Temo Cook, PELON)1317 (Given - Provider: Mellissa Lawrence, PELON)2050 (Given - Provider: Temo Cook, PELON) 0430 (Not Given - Provider: Temo Cook RN - Reason: Other - Comment: pt asleep)1308 (Given - Provider: Mercedez Eaton, PELON) aspirin chewable tablet 81 mg 81 mg, Oral, Daily, First dose on 03/22/23 at 0900 0826 (Given - Provider: Candy Moyer RN) 0801 (Given - Provider: Mellissa Lawrence, PELON) 0913 (Given - Provider: Mercedez Eaton, PELON) atenolol (Tenormin) tablet 50 mg 50 mg, Oral, Daily, First dose (after last modification) on Sat03/25/23 at 0900, [facility] 1124 (Given - Provider: Candy Moyer RN) 1010 (Not Given - Provider: Mellissa Lawrence, PELON - Reason: Other - Comment: held by Jonathan De Leon NP d/t hypotension) 09 (Given - Provider: Mercedez Eaton, RN) cefepime (Maxipime) 2,000 mg in sodium chloride 0.9 % 50 mL IVPB Mini-Bag Plus 2,000 mg, IntraVENous, Administer over 30 Minutes, Every 12 hours, First dose on Sat03/27/23 at 2000, Mini-Bag Plus bag, Suspected Indication (Select all that apply): Aspiration Pneumonia 2139 (New Bag - Provider: Temo Cook RN)221 (Stopped - Provider: Temo Cook RN) 09 (New Bag - Provider: Mercedez Eaton, RN)0942 (Stopped - Provider: Mercedez Eaton, RN) chlorhexidine (Peridex) 0.12 % solution 15 mL (CANCELED) 15 mL, Mouth/Throat, 2 times daily, First dose on Sat03/21/23 at 1230, For 7 days, Recovery [facility] On Unit, Rinse and spit. Do not swallow. 0826 (Given - Provider: Candy Moyer RN)2100 (Not Given - Provider: Temo Cook RN - Reason: Patient/family refused) heparin injection 5,000 Units 5,000 Units, SubCUTAneous, 2 times daily, First dose on Sat03/22/23 at 0900 0826 (Given - Provider: Candy Moyer RN)2034 (Given - Provider: Temo Cook RN) 08 (Given - Provider: Mellissa Lawrence, PELON)2049 (Given - Provider: Temo Cook, PELON) 0912 (Given - Provider: Mercedez Eaton, PELON) insulin glargine (Lantus) injection 36 Units 36 Units, SubCUTAneous, Every morning, First dose (after last modification) on Sat03/26/23 at 0900 0826 (Given - Provider: Candy Moyer RN) 0807 (Given - Provider: Mellissa Lawrence, PELON) 0900 (Given - Provider: Mercedez Eaton, PELON - Comment: no priny out label from printer) Insulin Lispro (Humalog) injection 0-12 Units 0-12 Units, SubCUTAneous, 3 times daily with meals, First dose on Sat03/23/23 at 1200, Moderate dose Sliding scale: <150 = 0 unit 151-200 = 2 units 201-250 = 4 units 251-300 = 6 units 301-350 = 8 units 351-400 = 10 units > 400 = 12 units and call endocrine 0800 (Not Given - Provider: Candy Moyer RN - Reason: Medication not available)1359 (Given - Provider: Candy Moyer RN)1851 (Given - Provider: Candy Moyer RN) 0643 (Given - Provider: Temo Cook, PELON)1235 (Given - Provider: Maribeth Lozano, PELON)1816 (Given - Provider: Sylwia Leonard, PELON) 0913 (Given - Provider: Mercedez Eaton, PELON)1256 (Given - Provider: Mercedez Eaton, PELON) Insulin Lispro (Humalog) injection 12 Units (CANCELED) 12 Units, SubCUTAneous, 3 times daily with meals, First dose (after last modification) on Sat03/26/23 at 1200, Hold dose if pt is not eating 1359 (Given - Provider: Candy Moyer RN)1851 (Given - Provider: Candy Moyer RN) 0643 (Given - Provider: Temo Cook, PELON) Insulin Lispro (Humalog) injection 14 Units 14 Units, SubCUTAneous, 3 times daily with meals, First dose (after last modification) on Sat03/27/23 at 1200, Hold dose if pt is not eating 1235 (Given - Provider: Maribeth Lozano, PELON)1817 (Not Given - Provider: Sylwia Leonard RN - Reason: Other - Comment: Patient not eating) 0800 (Given - Provider: Mercedez Eaton, PELON)1257 (Given - Provider: Mercedez Eaton, PELON) lactated ringers bolus 500 mL (COMPLETED) 500 mL, IntraVENous, at 125 mL/hr, Administer over 4 Hours, Once, On Sat03/26/23 at 0815, For 1 dose 0834 (New Bag - Provider: Candy Moyer RN)1234 (Stopped - Provider: Candy Moyer RN) lactated ringers bolus 500 mL (COMPLETED) 500 mL, IntraVENous, at 125 mL/hr, Administer over 4 Hours, Once, On Sat03/26/23 at 1345, For 1 dose 1403 (New Bag - Provider: Candy Moyer RN)1803 (Stopped - Provider: Candy Moyer RN) lactated ringers bolus 500 mL (COMPLETED) 500 mL, IntraVENous, at 125 mL/hr, Administer over 4 Hours, Once, On Sat03/27/23 at 0700, For 1 dose 0800 (New Bag - Provider: Mellissa Lawrence RN)1200 (Stopped - Provider: Mellissa Lawrence RN) Lidocaine 4 % patch 1 patch 1 patch, Topical, Administer over 12 Hours, Daily, First dose on Sophie 03/21/23 at 1230, Recovery [facility] On Unit, Apply patch to chest, not directly over incision. Patch may remain in place for up to 12 hours in any 24 hour period. 0826 (Medication Applied - Provider: Candy Moyer RN)2025 (Medication Removed - Provider: Temo Cook RN) 08 (Medication Applied - Provider: Mellissa Lawrence RN)2000 (Medication Removed - Provider: Temo Cook RN) 0912 (Medication Applied - Provider: Mercedez Eaton RN)1419 (Due: Medication Removed - Provider: Automatic Discharge Provider - Comment: Time automatically adjusted from order being discontinued) melatonin tablet 10 mg 10 mg, Oral, Nightly, First dose on Sat03/26/23 at 2100 2035 (Given - Provider: Temo Cook RN) 2049 (Given - Provider: Temo Cook RN) pantoprazole (ProtoNix) EC tablet 40 mg 40 mg, Oral, Daily before breakfast, First dose on Sat03/25/23 at 0700, Do not crush, chew, or split. 0623 (Given - Provider: Claudette Hurd RN) 0526 (Given - Provider: Temo Cook RN) 0700 (Not Given - Provider: Temo Cook RN - Reason: Patient/family refused) rosuvastatin (Crestor) tablet 20 mg 20 mg, Oral, Nightly, First dose on Sat03/22/23 at 2100 2035 (Given - Provider: Temo Cook, RN) 2050 (Given - Provider: Temo Cook, RN) senna-docusate sodium (Senokot-S) 8.6-50 MG tablet 2 tablet 2 tablet, Oral, Nightly, First dose on Sat03/21/23 at 2100, Recovery & On Unit, Bowel Regimen - for prevention of constipation. 2099 (Not Given - Provider: Temo Cook RN - Reason: Other) 2099 (Not Given - Provider: Temo Cook RN - Reason: Other) sodium chloride 0.9% (NS) flush 10 mL (CANCELED) 10 mL, IntraVENous, Every 12 hours scheduled (2 times per day), First dose on Sophie 03/21/23 at 2100, Recovery [facility] On Unit 0835 (Given - Provider: Candy Moyer RN)2099 (Given - Provider: Temo Cook, PELON) Continuous Medication Order 03/26/2023 03/27/2023 03/28/2023 lactated Ringer's infusion 50 mL/hr, IntraVENous, Continuous, Starting on Sat03/27/23 at 1700 1730 (New Bag - Provider: Sylwia Leonard RN) 0215 (New Bag - Provider: Temo Cook, RN) PRN Medication Order 03/26/2023 03/27/2023 03/28/2023 calcium gluconate 2000 mg in 100 mL IVPB premix 2,000 mg, IntraVENous, at 50 mL/hr, Administer over 2 Hours, PRN, ionized calcium less than 4.3, Starting on Sophie 03/21/23 at 1222, Recovery & On Unit, Give 2000 mg for ionized calcium less than 4.3 premix bag dextrose 5 % infusion 100 mL/hr, IntraVENous, PRN, Blood sugar less than 70mg/dL, Starting on Sophie 03/21/23 at 1222, Recovery & On Unit, Start infusion following administration of dextrose 50% or glucagon. dextrose 50 % solution 12.5 g 12.5 g, IntraVENous, PRN, low blood sugar, Blood glucose less than 70 mg/dL and patient NOT ALERT or NPO., Starting on Sophie 03/21/23 at 1222, Recovery & On Unit, If patient does not respond within 5 minutes, repeat dose x1. Start D5W at 100 mL/hour until ordering provider can be reached. Repeat blood glucose in 15 minutes. If blood glucose is less than 70 mg/dL, repeat treatment and recheck blood glucose in 15 minutes x2. If using Glucostabilizer, dose as instructed per system. 0138 (Given - Provider: Claudette Hurd RN) glucagon (human recombinant) injection 1 mg 1 mg, IntraMUSCular, PRN, low blood sugar, Blood glucose less than 70 mg/dL and patient NOT ALERT or NPO and does not have IV access., Starting on Sophie 03/21/23 at 1222, Recovery & On Unit, After administration, attempt intravenous access and start D5W at 100 mL/hr. Repeat blood glucose in 15 minutes x2 and notify provider. glucose oral gel 15 g 15 g, Oral, As needed, low blood sugar, Starting on Sophie 03/21/23 at 1222, Recovery & On Unit, If blood glucose less than 50 mg/dL and patient ALERT and NOT NPO, give 2 tubes glucose gel. If blood glucose less than 70 mg/dL and patient ALERT and NOT NPO, give 1 tube glucose gel. Repeat blood glucose in 15 minutes. If blood glucose is less than 70 mg/dL, repeat treatment and recheck blood glucose in 15 minutes x2 and notify provider. ipratropium-albuterol (Duo-Neb) 0.5-2.5 mg/3 mL nebulizer solution 3 mL 3 mL, Nebulization, 3 times daily PRN, wheezing, shortness of breath, Starting on Sophie 03/21/23 at 1222, Recovery & On Unit ondansetron (Zofran) injection 4 mg(Linked Group 1) 4 mg, IntraVENous, Every 6 hours PRN, nausea, vomiting, Starting on Sophie 03/21/23 at 1222, Recovery & On Unit, 1st Line. Give IV if patient is unable to take orally. If inadequate response within 60 minutes, proceed to next-line agent or contact provider if no further options ordered. ondansetron ODT (Zofran-ODT) disintegrating tablet 4 mg(Linked Group 1) 4 mg, Oral, Every 8 hours PRN, nausea, vomiting, Starting on Sophie 03/21/23 at 1222, Recovery & On Unit, 1st Line. If inadequate response within 60 minutes, proceed to next-line agent or contact provider if no further options ordered. Patient should allow tablet to dissolve on tongue. Do not remove from blister pack until just before administering. oxyCODONE (Roxicodone) immediate release tablet 10 mg(Linked Group 2) 10 mg, Oral, Every 6 hours PRN, severe pain (7-10), Starting on Sophie 03/21/23 at 1222, Recovery & On Unit 1401 (Given - Provider: Candy Moyer RN)2035 (See Alternative - Provider: Temo Cook RN) 05 (See Alternative - Provider: Temo Cook RN)2050 (See Alternative - Provider: Temo Cook RN) 0913 (See Alternative - Provider: Mercedez Eaton RN)1308 (See Alternative - Provider: Mercedez Eaton, PELON) oxyCODONE (Roxicodone) immediate release tablet 5 mg(Linked Group 2) 5 mg, Oral, Every 6 hours PRN, moderate pain (4-6), Starting on Sophie 03/21/23 at 1222, Recovery & On Unit 1401 (See Alternative - Provider: Candy Moyer RN)2035 (Given - Provider: Temo Cook RN) 05 (Given - Provider: Temo Cook RN)2050 (Given - Provider: Temo Cook RN) 0913 (Given - Provider: Mercedez Eaton, PELON)1308 (Incomplete - Provider: Mercedez Eaton, PELON) potassium chloride CR (Klor-Con M10) ER tablet 20 mEq 20 mEq, Oral, PRN, Hypokalemia, Starting on Sat03/22/23 at 0000, Recovery & On Unit, If patient is intubated or not tolerating PO use PRN IV replacement protocol Potassium level Dose LESS than 3.0 = Give 20 mEq x 3 doses 3.0-3.6 = Give 20 mEq x 2 doses Recheck potassium level 2 hour after replacement given, place order for lab under [place] If potassium level LESS than 3 after 1st replacement: Call surgeon. Do not crush or break. Do not crush or chew. 447 (Given - Provider: Claudette Hurd, PELON)448 (Given - Provider: Claudette Hurd, RN) 2050 (Given - Provider: Temo Cook RN) Linked Groups Order Group 1: ondansetron ODT (Zofran-ODT) disintegrating tablet 4 mgJump to med 4 mg, Oral, Every 8 hours PRN, nausea, vomiting, Starting on Sophie 03/21/23 at 1222, Recovery & On Unit, 1st Line. If inadequate response within 60 minutes, proceed to next-line agent or contact provider if no further options ordered. Patient should allow tablet to dissolve on tongue. Do not remove from blister pack until just before administering. Or ondansetron (Zofran) injection 4 mgJump to med 4 mg, IntraVENous, Every 6 hours PRN, nausea, vomiting, Starting on Sophie 03/21/23 at 1222, Recovery & On Unit, 1st Line. Give IV if patient is unable to take orally. If inadequate response within 60 minutes, proceed to next-line agent or contact provider if no further options ordered. Group 2: oxyCODONE (Roxicodone) immediate release tablet 5 mgJump to med 5 mg, Oral, Every 6 hours PRN, moderate pain (4-6), Starting on Sophie 03/21/23 at 1222, Recovery & On Unit Or oxyCODONE (Roxicodone) immediate release tablet 10 mgJump to med 10 mg, Oral, Every 6 hours PRN, severe pain (7-10), Starting on Sophie 03/21/23 at 1222, Recovery & On Unit FOR RECORDS PERTAINING TO PATIENTS WHO ARE OR HAVE BEEN ENROLLED IN A CHEMICAL DEPENDENCY/SUBSTANCEABUSE PROGRAM, SOME INFORMATION MAY BE OMITTED. This clinical summary was aggregated from multiple sources. Caution should be exercised in using it in the provision of clinical care. This summary normalizes information from multiple sources, and as a consequence, information in this document may materially change the coding, format and clinical context of patient data. In addition, data may be omitted in some cases. CLINICAL DECISIONS SHOULD BE BASED ON THE PRIMARY CLINICAL RECORDS. [facility] provides no warranty or guarantee of the accuracy or completeness of information in this document.
[2025-05-29 08:35] LABS: Creatinine, Urine (random) 168.00 mg/dL (39.00-259.00); Microalbumin,Random Urine 23.8 mg/L (<20 mg/L)
[2025-05-29 09:05] LABS: AST(SGOT) 34 U/L (<=37); Alanine Aminotransfer ALT/SGPT 27 U/L (<=46); Albumin, Serum 4.0 g/dL (3.4-4.8); Alkaline Phosphatase 72 U/L (40-129); Anion Gap 8 (5-15); BUN 19 mg/dL (4-19); BUN/Creat Ratio 14.3 RATIO (10-20); Calcium,Total 9.3 mg/dL (7.6-11.0); Carbon Dioxide 27.3 mmol/L (21.0-32.0); Chloride 105 mmol/L (98-108); Globulin 3.0 g/dL (2.2-4.2); Glucose 132 mg/dL (70-99); PSA,Total - Annual Screen 0.62 ng/mL (0.02-4.00); Potassium 5.3 mmol/L (3.3-5.1)
== END | disposition home or self-care (01) ==
LOC: LAB 07:48
PROVIDERS: PCP Family Medicine; Referring Provider Family Medicine; Visit Provider Family Medicine
DX: I10 Essential (primary) hypertension (principal); E11.9 Type 2 diabetes mellitus without complications; Z12.5 Encounter for screening for malignant neoplasm of prostate
CPT/HCPCS: 36415; 80053; 82043; 82570; 84153; G0103